=== PATIENT | male | born 1945 | race Caucasian/White ===

== ENCOUNTER 2022-11-08 07:40 | Inpatient (IN) | payer MEDICARE, OTHER, SELFPAY ==
[2022-11-08] VITALS (12 sets, daily range): BP systolic 115–175; BP diastolic 60–95; PULSE 76–109; RESP 16–24; TEMP 36.4–36.7; O2SAT 90–95; BMI 23.7
--- NOTE | ~2022-11-08 | XR_ITS ---
EXAMINATION: XR CHEST CLINICAL INFORMATION: Shortness of breath COMPARISON: None available. TECHNIQUE: Frontal and lateral sitting views of the chest FINDINGS: Linear opacities are evident in the periphery of the right midlung zone and at the left lung base indicative of atelectasis. In addition, there is a prominent vascular structure extending from the right hilum towards the region of atelectasis in the right midlung zone. There is a 21 x 14 mm nodular opacity in the right suprahilar region. No pleural effusions are evident. The cardiac silhouette is not enlarged. The aorta is uncoiled. Changes of prior vertebroplasty are noted in the mid dorsal spine. XR/XR chest 2V IMPRESSION: 1. Prominent tubular opacity extending from the right hilum towards the periphery of the right mid lung zones with peripheral atelectasis. This would better assessed by pulmonary CT angiography. 2. Nodular opacity in the right suprahilar region extending towards the right middle lobe, also better assessed by contrast-enhanced CT. 3. Findings discussed with DRE Prescott on 11/08/2022 at 8:35 AM
--- NOTE | ~2022-11-08 | CT_ITS ---
EXAMINATION: CT ANGIOGRAM OF THE CHEST WITH AND WITHOUT CONTRAST (CT PULMONARY ANGIOGRAM FOR PE) CLINICAL INFORMATION: Reason for Exam SOB, XR concerning for PE. Abnormal chest x-ray. COMPARISON: Chest x-ray of 11/08/2022 TECHNIQUE: Prior to contrast administration, noncontrast localization images were obtained. Subsequently, multidetector volumetric imaging was performed from the thoracic inlet to below the diaphragms following the administration of 80 mL Omnipaque 350 intravenous contrast. No contrast reaction reported Sagittal, coronal, and MIP oblique sagittal reformatted images were obtained on the CT workstation, uploaded to PACS, and reviewed. This CT examination was performed using dose optimization techniques as appropriate, variously including the following: *Automated exposure control *Adjustment of mA and/or kV according to patient size (this includes techniques or standardized protocols for targeted exams where dose is matched to indication/reason for exam; i.e. extremities or head) *Use of iterative reconstruction technique Total exam dose-length product 284 mGy-cm FINDINGS: QUALITY OF STUDY/CONTRAST BOLUS: Excellent PULMONARY ARTERIES: There is no evidence of central pulmonary embolus, aortic dissection or pneumothorax. The great vessels image normally. No aneurysm is detected. THORACIC AORTA: No aneurysm. LUNG: Severe emphysema is present, greater in the mid and upper lung zones. There are areas of mosaic attenuation with some air trapping. In the right lower lobe, there is ill-defined soft tissue along the course of the medial right lower lobe bronchus, measuring at least 3.1 x 1.1 cm. An endobronchial branching filling defect is evident within the right lower lobe bronchus at this level. There is some atelectasis of the subtended right lower lobe, and peribronchial thickening is evident about the right lower lobe bronchus. Irregular subpleural opacity is evident at the left base measuring 31 x 9 mm. Mild left lower lobe bronchiectasis is present. Patchy opacity in the right midlung zone with areas of groundglass may reflect air trapping, subsegmental atelectasis or perhaps pneumonitis. PLEURA: No pleural effusion or pneumothorax. MEDIASTINUM: Normal heart size. No pericardial effusion. No hilar or mediastinal lymphadenopathy. No evidence of septal bowing or right heart strain. CORONARY ARTERY CALCIFICATION: Mild left main and anterior descending coronary arteries CHEST WALL/AXILLA: No axillary or internal mammary lymphadenopathy. OSSEOUS STRUCTURES: Vertebroplasty is noted at T8. Generalized demineralization is present. There are no suspicious bone lesions. UPPER ABDOMEN: There are numerous low-density lesions in the liver, all of which measure less than 10 Hounsfield units, or are too small to characterize No reflux of contrast into the hepatic veins to suggest elevated right heart pressures. Multiple calculi are evident within the gallbladder. An exophytic 29 mm cyst is present in the upper pole the left kidney. There are no adrenal masses. CT/CT angio chest PE protocol IMPRESSION: 1. No evidence of central pulmonary embolus, aortic aneurysm or dissection or pneumothorax. 2. Severe emphysema with mosaic attenuation and areas of air trapping, greater in the mid and upper lung zones. 3. Endobronchial filling defect in the right lower lobe medial basal segment, with surrounding peribronchial thickening. This may reflect impacted mucus, possibly or neoplasm. 4. Patchy groundglass opacities in the right midlung zone, either on the basis of air trapping with mosaic attenuation; atelectasis; or pneumonitis. 5. Left lung base subpleural 31 x 9 mm opacity, with differential considerations including atelectasis, pneumonia or neoplasm. Follow-up is recommended to confirm clearing. 6. Cholelithiasis. The findings were discussed with Emma Umana in the [facility] emergency department on 11/08/2022 at 10:30 AM
--- NOTE | ~2022-11-08 | CT_ITS ---
EXAMINATION: CT ABDOMEN AND PELVIS WITHOUT CONTRAST CLINICAL INFORMATION: Central abdominal pain COMPARISON: None available. TECHNIQUE: Multidetector volumetric imaging was performed from the superior aspect of the liver through the pubic symphysis. Sagittal and coronal reformatted images were obtained on the technologist's workstation. This CT examination was performed using dose optimization techniques as appropriate, variously including the following: *Automated exposure control *Adjustment of mA and/or kV according to patient size (this includes techniques or standardized protocols for targeted exams where dose is matched to indication/reason for exam; i.e. extremities or head) *Use of iterative reconstruction technique DLP: 475 mGy-cm FINDINGS: LUNG BASES: Limited lower thoracic images show severe emphysema. Left base atelectasis or consolidation and cylindrical bronchiectasis are present. LIVER, GALLBLADDER, AND BILIARY TREE: The liver is normal in size, shape, and attenuation. Numerous hepatic cysts are present. Other small hypodense lesions are likely cysts though too small to characterize. There is no biliary ductal dilatation. Multiple calculi are evident within the gallbladder. No pericholecystic edema or infiltration is evident. PANCREAS: Unremarkable. SPLEEN: Unremarkable. ADRENAL GLANDS: Unremarkable. KIDNEYS AND URETERS: There is an exophytic 32 mm cyst extending from the upper pole the left kidney. A 32 mm left renal lower pole cyst is also evident. There is a 12 mm cyst in the right renal midpole. No renal calculi or obstructive uropathy is detected. Both ureters are well opacified by IV contrast from the recent CT thoracic angiogram. No filling defects are evident within the ureters. No hydronephrosis, hydroureter, or calculi seen. No perinephric stranding. BLADDER: Unremarkable. GASTROINTESTINAL TRACT: The small and large bowel are unremarkable. The appendix is unremarkable. ABDOMINAL WALL: There are small fat-containing bilateral inguinal hernias. LYMPH NODES: Normal. VASCULAR: There is an aneurysm of the infrarenal aorta measuring 5.4 cm long and 4.2 cm in maximum diameter. The aneurysm arises 3.2 cm above an accessory right renal lower pole artery and 6.3 cm below the main renal arteries. The aneurysm extends to the origin of the right proximal common iliac artery. 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 PELVIC VISCERA: Unremarkable. OSSEOUS STRUCTURES: Degenerative changes in the mid and lower lumbar spine. Probable intraosseous hemangioma at L1. No suspicious bone lesions. CT/CT abdomen pelvis wo IV con IMPRESSION: 1. Infrarenal abdominal aortic aneurysm measuring 4.2 cm in maximum diameter. Vascular consultation is recommended, as is follow-up CT in 12 months. 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 2. No acute findings in the abdomen or pelvis. 3. Cholelithiasis. 4. Hepatic and bilateral renal cysts, for which no specific follow-up is recommended.. Fleischner guidelines were followed.
--- NOTE | ~2022-11-08 | XR_ITS ---
EXAMINATION: XR CHEST CLINICAL INFORMATION: Chest congestion. COMPARISON: 11/08/2022 chest radiographs and chest CTA. TECHNIQUE: Frontal view of the chest was obtained. FINDINGS: Scattered curvilinear markings are seen bilaterally without significant change. The heart and mediastinal structures are unremarkable. XR/XR chest 1V IMPRESSION: No acute cardiopulmonary process. Chronic appearing scarring/atelectasis with similar distribution and severity.
--- NOTE | ~2022-11-08 | CT_ITS ---
EXAMINATION: CT HEAD WITHOUT CONTRAST CLINICAL INFORMATION: Severe sudden onset headache. COMPARISON: None. TECHNIQUE: Contiguous axial imaging was performed from the skull base to vertex without intravenous administration of contrast. This CT examination was performed using dose optimization techniques as appropriate, variously including the following: *Automated exposure control *Adjustment of mA and/or kV according to patient size (this includes techniques or standardized protocols for targeted exams where dose is matched to indication/reason for exam; i.e. extremities or head) *Use of iterative reconstruction technique DLP: 97 mGy-cm. FINDINGS: There is no intracranial hemorrhage, extra-axial collection, mass effect, or territorial infarction. There is a chronic lacunar infarct within the left basal ganglia. There is mild degree of diffuse brain parenchymal volume loss with prominence of the ventricles and sulci. Mild hypoattenuation is seen within the white matter, most likely representing chronic microangiopathic changes. The extracranial structures are within normal limits. CT/CT head/brain wo IV con IMPRESSION: No acute intracranial abnormality. Chronic lacunar infarct in the left basal ganglia. Mild chronic microangiopathic changes.
--- NOTE | 2022-11-08 07:57 | ECG_ITS ---
Test Reason : SOB Blood Pressure : / mmHG Vent. Rate : 076 BPM Atrial Rate : 076 BPM P-R Int : 182 ms QRS Dur : 088 ms QT Int : 426 ms P-R-T Axes : 072 009 041 degrees QTc Int : 479 ms Sinus rhythm with occasional Premature ventricular complexes Otherwise normal ECG No previous ECGs available Referred By: Emma Umana Electronically Signed By:MARIO ENRIQUEZ
--- NOTE | 2022-11-08 08:39 | ED_ITS ---
HPI - General Adult General Chief complaint: Upper Respiratory Symptoms Stated complaint: SOB,HX COPD PER EMS Time Seen by Provider: 11/08/22 08:38 Source: patient and EMS Mode of arrival: EMS Limitations: no limitations History of Present Illness HPI narrative: Patient is a 77 year old assigned male at with a history of COPD on 2LPM of oxygen chronically, presenting to the emergency department today with wor sening shortness of breath and a headache. Patient states that over the last day he has had worsening shortness of breath and a headache. Patient states that he has been having to turn his oxygen up significantly when walking. Patient denies any dizziness, lightheadedness, abdominal pain, nausea, vomiting, fever, chills, blurry vision, double vision, loss of vision, chest pain, back pain, night sw eats, pain with urination, increased urinary frequency, increased urinary urgency, blood in his urine or stool, syncope or a near syncopal episode, recent trauma or falls, bowel incontinence, bladder incontinence, bowel retention, bladder retention, or any other complaints at this time. Onset (ago): day(s) (1) Severity: moderate Severity scale (1-10): 5 Relieving factors: none Exacerbating factors: none Associated symptoms: shortness of breath Treatments prior to arrival: none Related Data Home Medications Medication Instructions Recorded Confirmed albuterol sulfate 90 mcg/actuation 2 puff inhalation Q6H PRN 11/08/22 11/08/22 aerosol inhaler (Ventolin HFA) Shortness Of Breath Or Wheezing aspirin 81 mg tablet,delayed 81 mg PO DAILY 11/08/22 11/08/22 release azithromycin 500 mg tablet 500 mg PO MOWEFR@0900 11/08/22 11/08/22 clopidogrel 75 mg tablet 75 mg PO DAILY 11/08/22 11/08/22 fluticasone fur. 100 mcg-umeclid 1 ea inhalation DAILY 11/08/22 11/08/22 62.5 mcg-vilant 25 mcg inhalat.powder (Trelegy Ellipta) Allergies Allergy/AdvReac Type Severity Reaction Status Date / Time No Known Allergies Allergy Verified 11/08/22 08:02 Review of Systems Constitutional: Constitutional: Reports no additional constitutional complaints, Denies chills, Denies fever(s) and Denies night sweats Eyes: Eyes: Reports no additional eye complaints, Denies blurry vision, Denies change in vision, Denies diplopia, Denies eye discharge, Denies loss of vision and Denies eye pain ENT: Denies dizziness Cardiovascular: Cardiovascular: Reports no additional cardiovascular compl aints, Denies chest pain, Denies lightheadedness, Denies Loss of Consciousness and Reports dyspnea Respiratory: Respiratory: Reports no additional respiratory complaints and Reports dyspnea Gastrointestinal: Gastrointestinal: Reports no additional gastrointestinal complaints, Denies abdominal pain, Denies melena, Denies hematochezia, Denies change in bowel habits and Denies change in stool character Genitourinary: Genitourinary: Reports no additional male genitourinary complaints, Denies hematuria, Denies oliguria, Denies difficulty urinating, Denies dysuria, Denies urinary frequency, Denies urinary hesitancy, Denies urinary incontinence and Denies urinary urgency Musculoskeletal: Musculoskeletal: Reports no additional musculoskeletal complaints, Denies numbness and Denies tingling Neurologic: Denies dizziness, Denies loss of vision, Denies numbness and Denies tingling Psychiatric: Psychiatric: Reports no additional psychiatric complaints Endocrine: Endocrine: Reports no additional endocrine complaints Hematologic/Lymphatic: Hematologic/Lymphatic: Reports no additional hemato logic/lymphatic complaints Allergic/Immunologic: Allergic/Immunologic: Reports no additional allergic/immunologic complaints PMFSH Past Medical History Attestation statement: The following information was validated with the patient. Source: old records reviewed and nursing notes reviewed Social History Social History Advance Directives: No Advance Directives Information Provided: No Physical Exam ED Vital Signs: Vital Signs - 24 hr 11/08/22 07:51 11/08/22 10:17 11/08/22 11:02 Pulse Rate 76 81 82 Respiratory Rate 24 H 18 21 H Blood Pressure 174/89 H 141/71 H Pulse Oximetry 94 95 Oxygen Delivery Method Room Air Nasal Cannula Nasal Cannula Oxygen Flow Rate 3 2.5 11/08/22 12:00 11/08/22 12:40 Pulse Rate 84 Respiratory Rate 24 H Blood Pressure 134/71 Pulse Oximetry 94 95 Oxygen Delivery Method Nasal Cannula Nasal Cannula Oxygen Flow Rate 2 BMI result Body Mass Index 23.7 Const General: cooperative, no acute distress, alert and awake Nutritional Appearance: well nourished Orientation/consciousness: patient oriented x3 Limitations: no limitations HENMT Head: Yes normal to inspection and Yes atraumatic Ears: hearing grossly normal bilaterally and external ears normal General nose exam: Normal external nose present, no nasal discharge noted and no epistaxis Face and sinus: Yes normal facial exam, No abrasion and No laceration Mouth: Normal oral and palatal mucosa present, no drooling and no muffled voice Eyes General: appearance normal, both eyes and all related structures Periorbital: periorbital findings normal Eyelids: Yes eyelids normal Conjunctivae: conjunctivae normal Pupils: Equal, round and reactive pupils present EOM: EOMs intact bilaterally Neck Neck: Yes normal visual inspection, Yes full ROM and Yes no lymphadenopathy Chest Chest palpation & inspection: normal inspection of the chest Resp Effort & Inspection: labored and tachypneic Auscultation: diminished lung sounds diffuse Cardio Rate: regular rate Rhythm: regular rhythm GI Inspection: Yes normal to inspection Palpation (GI): Soft to palpation, not firm, nontender and no guarding Neuro General: patient oriented x3 and moves all extremities Cranial nerves: Yes Equal, round and reactive pupils present Cognition (Neuro): normal cognition Motor exam (neuro): 5/5 motor strength present throughout Sensory Exam: Normal double simultaneous stimulation for sensation Coordination: [id number] test normal Extrem Other: 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 General: Yes full ROM and Yes capillary refill normal Psych Appearance: grossly normal Mental Status: mental status grossly normal Affect: normal affect Attitude: cooperative Thought process: Normal thought process present Thought content: Normal thought content present Insight: Good insight present (Psych) Medications Administered Generic Name Dose Route Start Last Admin Trade Name Freq PRN Reason Stop Dose Admin Sodium Chloride 2,187 mls @ 2,187 mls/hr 11/08/22 12:18 11/08/22 12:24 Ns 30 ml/kg infuse over 1 hr (2187 ml) 11/08/22 13:17 2,187 mls/hr IV Administration .Q1H STA Discontinued Medications Generic Name Dose Route Start Last Admin Trade Name Freq PRN Reason Stop Dose Admin Acetaminophen 650 mg 11/08/22 08:42 11/08/22 09:19 Acetaminophen 325 Mg Tablet PO 11/08/22 08:43 650 mg ONCE ONE Administration Albuterol/Ipratropium 3 ml 11/08/22 10:55 11/08/22 10:59 Albuterol/Iprat 2.5/0.5mg 3 Ml Ampul.Neb INHALE 11/08/22 10:56 3 ml ONCE ONE Administration Ceftriaxone Sodium 1 gm/ 50 mls @ 100 mls/hr 11/08/22 11:41 11/08/22 12:49 Sodium Chloride IV 11/08/22 12:10 Infused ONCE ONE Infusion Iohexol 65 ml 11/08/22 09:47 11/08/22 09:47 Iohexol 350 Mg/Ml 100 Ml Infus..Btl IV 11/08/22 09:48 65 ml ONCE ONE Administration Methylprednisolone Sodium Succinate 60 mg 11/08/22 10:36 11/08/22 11:22 Methylprednisolone Sod Succ 125 Mg/2 Ml Vial IM 11/08/22 10:37 60 mg ONCE ONE Administration Medical Decision Making Medical Decision Making [facility] Narrative: Patient is a 77 year old assigned male at with a history of COPD on 2 liters of oxygen at baseline presenting to the emergency department today with a headache and significant increase in difficulty breathing. Patient's physical e xam was as noted in the physical exam portion of this note. Patient's blood work showed an elevated lactic acid of 2.7 but the rest of the patient's lab results were grossly normal. Patient's EKG was unremarkable. Patient's chest x-ray showed a prominent tubular opacity extending from the right hilum towards the periphery of the right mid lung zones with peripheral atelectasis and a nodular opacity in the right suprahilar region extending towards the right middle lobe. Radiologist called to inform me of this reading and recommended a CT PE study. CT PE study showed endobronchial filling defect in the right lower lobe medial basal segment with surrounding peribronchial thickening and patchy ground glass opacities in the right midlung zone. Radiologist speculates this could be PNA vs. Neoplasm. Patient is not considered spesis at this time (@1140). Patient's head CT is negative. I spoke to the hospitalist who agreed to admission. I explained my physical exam findings as well as all test results to the patient. I answered all questions asked by the patient. Patient verbalized agreement and understanding with this treatment plan and admission. Differential Diagnosis Differential Diagnoses: The differential diagnosis associated with the presentation includes COPD exacerbation Worsening emphysema PNA Admission/Observation Consideration of admission/observation: Escalation of care including admission/observation considered Patient admitted. Consult Healthcare Provider Management of the patient was discussed with: Hospitalist (agreed to admission) and Front Desk Host (spoke to the radiologist as noted in the MDM portion of this note.) Lab Data [facility] Lab Attestation statement: I reviewed the patient's lab results. My interpretation of these results are in the MDM portion of this note. 11/08/22 08:42 11/08/22 08:42 Labs: Lab Results 11/08/22 11/08/22 11/08/22 Range/Units 08:42 08:42 08:42 WBC 9.4 (4.8-10.8) X10*3/uL RBC 4.49 L (4.60-5.80) X10*6/uL Hgb 13.3 L (14.0-18.0) g/dl Hct 40.7 L (42.0-52.0) % MCV 90.6 (80.0-98.0) fL MCH 29.6 (27.0-33.0) pg MCHC 32.7 (31.0-36.0) g/dl RDW 13.7 (11.0-16.0) % Plt Count 269 (160-400) X10*3/uL MPV 10.0 (9.4-12.4) fL Immature Gran % (Auto) 0.2 (0.0-0.4) % Neut % (Auto) 75.5 H (45-73) % Lymph % (Auto) 13.4 L (20-40) % Eagle % (Auto) 9.3 (2-11) % Eos % (Auto) 0.9 (0-4) % Baso % (Auto) 0.7 (0-2) % Lymph # (Auto) 1.3 (1.2-4.9) X10*3/uL Eagle # (Auto) 0.9 (0.1-1.2) X10*3/uL Eos # (Auto) 0.1 (0.0-0.4) X10*3/uL Baso # (Auto) 0.1 (0.0-0.2) X10*3/uL Abs Immat Gran (auto) 0.02 (0.00-0.03) X10*3/uL Absolute Neuts (auto) 7.1 (2.0-8.3) x10*3/uL Absolute Nucleated RBC 0.000 (0.0-0.012) X10*3/uL Nucleated RBC % (auto) 0.0 (0.0-0.2) /100WBC PT (11.1-13.3) SEC INR (0.9-1.1) APTT (26.0-36.4) SEC VBG pH (7.32-7.43) VBG pCO2 mmHg VBG pO2 mmHg VBG HCO3 (22-26) mmol/L VBG O2 Saturation % VBG Base Excess mmol/L Sodium 140 (135-145) mmol/L Potassium 4.7 (3.3-5.1) mmol/L Chloride 108 (96-108) mmol/L Carbon Dioxide 24 (22-29) mmol/L Anion Gap 13 (12-20) BUN 28 H (9-16) mg/dL Creatinine 1.08 (0.5-1.4) mg/dL Estim Creat Clear Calc 57.2 Estimated GFR > 60 Random Glucose 148 H (60-115) mg/dL Lactic Acid (0.5-2.0) mmol/L Calcium 9.4 (8.4-10.2) mg/dL Magnesium 2.0 (1.6-2.6) mg/dL Total Bilirubin 0.3 (0.0-1.0) mg/dL AST 12 (5-37) U/L ALT 10 (0-40) U/L Alkaline Phosphatase 71 (39-117) U/L Troponin I High Sens < 2.7 (<3.5-35.0) ng/L Total Protein 7.6 (6.5-8.0) g/dL Albumin 4.0 (3.5-5.0) g/dL COVID-19 (ANGEL) (Negative) COVID-19 Clin Com 11/08/22 11/08/22 11/08/22 Range/Units 08:42 08:42 09:17 WBC (4.8-10.8) X10*3/uL RBC (4.60-5.80) X10*6/uL Hgb (14.0-18.0) g/dl Hct (42.0-52.0) % MCV (80.0-98.0) fL MCH (27.0-33.0) pg MCHC (31.0-36.0) g/dl RDW (11.0-16.0) % Plt Count (160-400) X10*3/uL MPV (9.4-12.4) fL Immature Gran % (Auto) (0.0-0.4) % Neut % (Auto) (45-73) % Lymph % (Auto) (20-40) % Eagle % (Auto) (2-11) % Eos % (Auto) (0-4) % Baso % (Auto) (0-2) % Lymph # (Auto) (1.2-4.9) X10*3/uL Eagle # (Auto) (0.1-1.2) X10*3/uL Eos # (Auto) (0.0-0.4) X10*3/uL Baso # (Auto) (0.0-0.2) X10*3/uL Abs Immat Gran (auto) (0.00-0.03) X10*3/uL Absolute Neuts (auto) (2.0-8.3) x10*3/uL Absolute Nucleated RBC (0.0-0.012) X10*3/uL Nucleated RBC % (auto) (0.0-0.2) /100WBC PT 11.3 (11.1-13.3) SEC INR 0.9 (0.9-1.1) APTT 26.6 (26.0-36.4) SEC VBG pH 7.43 (7.32-7.43) VBG pCO2 35 mmHg VBG pO2 41 mmHg VBG HCO3 24 (22-26) mmol/L VBG O2 Saturation 64.0 % VBG Base Excess 0.6 mmol/L Sodium (135-145) mmol/L Potassium (3.3-5.1) mmol/L Chloride (96-108) mmol/L Carbon Dioxide (22-29) mmol/L Anion Gap (12-20) BUN (9-16) mg/dL Creatinine (0.5-1.4) mg/dL Estim Creat Clear Calc Estimated GFR Random Glucose (60-115) mg/dL Lactic Acid (0.5-2.0) mmol/L Calcium (8.4-10.2) mg/dL Magnesium (1.6-2.6) mg/dL Total Bilirubin (0.0-1.0) mg/dL AST (5-37) U/L ALT (0-40) U/L Alkaline Phosphatase (39-117) U/L Troponin I High Sens (<3.5-35.0) ng/L Total Protein (6.5-8.0) g/dL Albumin (3.5-5.0) g/dL COVID-19 (ANGEL) Negative (Negative) COVID-19 Clin Com See Note 11/08/22 Range/Units 12:00 WBC (4.8-10.8) X10*3/uL RBC (4.60-5.80) X10*6/uL Hgb (14.0-18.0) g/dl Hct (42.0-52.0) % MCV (80.0-98.0) fL MCH (27.0-33.0) pg MCHC (31.0-36.0) g/dl RDW (11.0-16.0) % Plt Count (160-400) X10*3/uL MPV (9.4-12.4) fL Immature Gran % (Auto) (0.0-0.4) % Neut % (Auto) (45-73) % Lymph % (Auto) (20-40) % Eagle % (Auto) (2-11) % Eos % (Auto) (0-4) % Baso % (Auto) (0-2) % Lymph # (Auto) (1.2-4.9) X10*3/uL Eagle # (Auto) (0.1-1.2) X10*3/uL Eos # (Auto) (0.0-0.4) X10*3/uL Baso # (Auto) (0.0-0.2) X10*3/uL Abs Immat Gran (auto) (0.00-0.03) X10*3/uL Absolute Neuts (auto) (2.0-8.3) x10*3/uL Absolute Nucleated RBC (0.0-0.012) X10*3/uL Nucleated RBC % (auto) (0.0-0.2) /100WBC PT (11.1-13.3) SEC INR (0.9-1.1) APTT (26.0-36.4) SEC VBG pH (7.32-7.43) VBG pCO2 mmHg VBG pO2 mmHg VBG HCO3 (22-26) mmol/L VBG O2 Saturation % VBG Base Excess mmol/L Sodium (135-145) mmol/L Potassium (3.3-5.1) mmol/L Chloride (96-108) mmol/L Carbon Dioxide (22-29) mmol/L Anion Gap (12-20) BUN (9-16) mg/dL Creatinine (0.5-1.4) mg/dL Estim Creat Clear Calc Estimated GFR Random Glucose (60-115) mg/dL Lactic Acid 2.7 H* (0.5-2.0) mmol/L Calcium (8.4-10.2) mg/dL Magnesium (1.6-2.6) mg/dL Total Bilirubin (0.0-1.0) mg/dL AST (5-37) U/L ALT (0-40) U/L Alkaline Phosphatase (39-117) U/L Troponin I High Sens (<3.5-35.0) ng/L Total Protein (6.5-8.0) g/dL Albumin (3.5-5.0) g/dL COVID-19 (ANGEL) (Negative) COVID-19 Clin Com Independent Interpretation I performed an independent interpretation of an: EKG, Plain X-Ray and CT Scan Interpretation: My interpretation is in agreement with the radiologist's impression of these imaging studies. EXAMINATION: XR CHEST CLINICAL INFORMATION: Shortness of breath COMPARISON: None available. TECHNIQUE: Frontal and lateral sitting views of the chest FINDINGS: Linear opacities are evident in the periphery of the right midlung zone and at the left lung base indicative of atelectasis. In addition, there is a prominent vascular structure extending from the right hilum towards the region of atelectasis in the right midlung zone. There is a 21 x 14 mm nodular opacity in the right suprahilar region. No pleural effusions are evident. The cardiac silhouette is not enlarged. The aorta is uncoiled. Changes of prior vertebroplasty are noted in the mid dorsal spine. XR/XR chest 2V IMPRESSION: ? 1. Prominent tubular opacity extending from the right hilum towards the periphery of the right mid lung zones with peripheral atelectasis. This would better assessed by pulmonary CT angiography. 2. Nodular opacity in the right suprahilar region extending towards the right middle lobe, also better assessed by contrast-enhanced CT. 3. Findings discussed with DRE Prescott on 11/08/2022 at 8:35 AM Dictated By: Bautista Flannery MD Signed By: Electronically signed by Bautista Flannery MD 11/08/22 0838 EXAMINATION: CT HEAD WITHOUT CONTRAST CLINICAL INFORMATION: Severe sudden onset headache. COMPARISON: None. TECHNIQUE: Contiguous axial imaging was performed from the skull base to vertex without intravenous administration of contrast. This CT examination was performed using dose optimization techniques as appropriate, variously including the following: *Automated exposure control *Adjustment of mA and/or kV according to patient size (this includes techniques or standardized protocols for targeted exams where dose is matched to indication/reason for exam; i.e. extremities or head) *Use of iterative reconstruction technique DLP: 97 mGy-cm. FINDINGS: There is no intracranial hemorrhage, extra-axial collection, mass effect, or territorial infarction. There is a chronic lacunar infarct within the left basal ganglia. There is mild degree of diffuse brain parenchymal volume loss with prominence of the ventricles and sulci. Mild hypoattenuation is seen within the white matter, most likely representing chronic microangiopathic changes. The extracranial structures are within normal limits. CT/CT head/brain wo IV con IMPRESSION: No acute intracranial abnormality. Chronic lacunar infarct in the left basal ganglia. Mild chronic microangiopathic changes. Dictated By: CHERYL BEACH MD Signed By: Electronically signed by CHERYL BEACH MD 11/08/22 1007 ---- EXAMINATION: CT ANGIOGRAM OF THE CHEST WITH AND WITHOUT CONTRAST (CT PULMONARY ANGIOGRAM FOR PE) CLINICAL INFORMATION: Reason for Exam SOB, XR concerning for PE. Abnormal chest x-ray. COMPARISON: Chest x-ray of 11/08/2022? ? TECHNIQUE: Prior to contrast administration, noncontrast localization images were obtained. ? Subsequently, multidetector volumetric imaging was performed from the thoracic inlet to below the diaphragms following the administration of 80 mL Omnipaque 350 intravenous contrast. No contrast reaction reported Sagittal, coronal, and MIP oblique sagittal reformatted images were obtained on the CT workstation, uploaded to PACS, and reviewed. This CT examination was performed using dose optimization techniques as appropriate, variously including the following: *Automated exposure control *Adjustment of mA and/or kV according to patient size (this includes techniques or standardized protocols for targeted exams where dose is matched to indication/reason for exam; i.e. extremities or head) *Use of iterative reconstruction technique Total exam dose-length product 284 mGy-cm FINDINGS: QUALITY OF STUDY/CONTRAST BOLUS: Excellent PULMONARY ARTERIES: There is no evidence of central pulmonary embolus, aortic dissection or pneumothorax. The great vessels image normally. No aneurysm is detected. THORACIC AORTA: No aneurysm. LUNG: Severe emphysema is present, greater in the mid and upper lung zones. There are areas of mosaic attenuation with some air trapping. In the right lower lobe, there is ill-defined soft tissue along the course of the medial right lower lobe bronchus, measuring at least 3.1 x 1.1 cm. An endobronchial branching filling defect is evident within the right lower lobe bronchus at this level. There is some atelectasis of the subtended right lower lobe, and peribronchial thickening is evident about the right lower lobe bronchus. Irregular subpleural opacity is evident at the left base measuring 31 x 9 mm. Mild left lower lobe bronchiectasis is present. Patchy opacity in the right midlung zone with areas of groundglass may reflect air trapping, subsegmental atelectasis or perhaps pneumonitis. PLEURA: No pleural effusion or pneumothorax. MEDIASTINUM: Normal heart size.? No pericardial effusion.? No hilar or mediastinal lymphadenopathy.? No evidence of septal bowing or right heart strain. CORONARY ARTERY CALCIFICATION: Mild left main and anterior descending coronary arteries CHEST WALL/AXILLA: No axillary or internal mammary lymphadenopathy. OSSEOUS STRUCTURES: Vertebroplasty is noted at T8. Generalized demineralization is present. There are no suspicious bone lesions.? UPPER ABDOMEN: There are numerous low-density lesions in the liver, all of which measure less than 10 Hounsfield units, or are too small to characterize? No reflux of contrast into the hepatic veins to suggest elevated right heart pressures. Multiple calculi are evident within the gallbladder. An exophytic 29 mm cyst is present in the upper pole the left kidney. There are no adrenal masses. CT/CT angio chest PE protocol IMPRESSION: ? 1. No evidence of central pulmonary embolus, aortic aneurysm or dissection or pneumothorax. ? 2. Severe emphysema with mosaic attenuation and areas of air trapping, greater in the mid and upper lung zones. ? 3. Endobronchial filling defect in the right lower lobe medial basal segment, with surrounding peribronchial thickening. This may reflect impacted mucus, possibly or neoplasm. ? 4. Patchy groundglass opacities in the right midlung zone, either on the basis of air trapping with mosaic attenuation; atelectasis; or pneumonitis. ? 5. Left lung base subpleural 31 x 9 mm opacity, with differential considerations including atelectasis, pneumonia or neoplasm. Follow-up is recommended to confirm clearing. ? 6. Cholelithiasis. ? The findings were discussed with Emma Umana in the [facility] emergency department on 11/08/2022 at 10:30 AM Dictated By: Bautista Flannery MD Signed By: Electronically signed by Bautista Flannery MD 11/08/22 1039 Vent. Rate: 076 BPM ? ? Atrial Rate: 076 BPM P-R Int: 182 ms? QRS Dur: 088 ms QT Int: 426 ms ? ? ? P-R-T Axes: 072 009 041 degrees QTc Int: 479 ms ? Sinus rhythm with occasional Premature ventricular complexes Otherwise normal ECG No previous ECGs available DD/ 0830 Radiology Impression Discussion of test interpretation with radiology: I discussed test interpretation with the radiologist and I have reviewed the radiologist's reading. Independent Historian Clinical information obtained from an independent historian. History obtained from or confirmed by: EMS (EMS provided additional history and confirmed the history provided by the patient.) Chronic Conditions Patient?s care impacted by: Other (emphysema) Critical Care Time Critical Care Time Critical Care Time: Yes Total Critical Care Time: 45 Attestation: I spent 45 minutes of Critical Care Time with this patient. This does not include time spent on separately reported billable procedures. Discharge Plan Discharge Clinical Impression: Emphysema lung, Pneumonia Patient Disposition: Admitted As Inpatient Prescriptions: No Action clopidogrel 75 mg tablet 75 mg PO DAILY albuterol sulfate [Ventolin HFA] 90 mcg/actuation HFA aerosol inhaler 2 puff inhalation Q6H PRN (Reason: Shortness Of Breath Or Wheezing) azithromycin 500 mg tablet 500 mg PO MOWEFR@0900 Trelegy Ellipta 100-62.5-25 mcg blister with device 1 ea inhalation DAILY aspirin 81 mg Tablet,Delayed Release (Dr/Ec) 81 mg PO DAILY
[2022-11-08 08:47] LABS: MANUAL DIFF FLAG NO
[2022-11-08 08:48] LABS: Venous Blood Gas Refer to POC result
[2022-11-08 08:48] LABS: Basophils Absolute Auto 0.1 X10*3/uL (0.0-0.2); Basophils Percent Auto 0.7 % (0-2); Eosinophils Absolute Auto 0.1 X10*3/uL (0.0-0.4); Eosinophils Percent Auto 0.9 % (0-4); Hematocrit 40.7 % (42.0-52.0); Hemoglobin 13.3 g/dl (14.0-18.0); Imm Gran Abs Auto 0.02 X10*3/uL (0.00-0.03); Imm Gran Pct Auto 0.2 % (0.0-0.4); Lymphocytes Absolute Auto 1.3 X10*3/uL (1.2-4.9); Lymphocytes Percent Auto 13.4 % (20-40); Mean Corpuscular HGB Conc 32.7 g/dl (31.0-36.0); Mean Corpuscular Hemoglobin 29.6 pg (27.0-33.0); Mean Corpuscular Volume 90.6 fL (80.0-98.0); Monocytes Absolute Auto 0.9 X10*3/uL (0.1-1.2); Monocytes Percent Auto 9.3 % (2-11); Neutrophils Absolute Auto 7.1 x10*3/uL (2.0-8.3); Neutrophils Percent Auto 75.5 % (45-73); Platelet Count 269 X10*3/uL (160-400); Red Blood Count 4.49 X10*6/uL (4.60-5.80); Red Cell Distribution Width 13.7 % (11.0-16.0); White Blood Count 9.4 X10*3/uL (4.8-10.8)
[2022-11-08 08:51] LABS: VBG Base Excess 0.6 mmol/L; VBG HCO3 24 mmol/L (22-26); VBG pCO2 35 mmHg; VBG pH 7.43 (7.32-7.43); VBG pO2 41 mmHg
[2022-11-08 09:05] LABS: COVID-19 Test Negative (Negative); IDNOW Serial# 08D9AD1C
[2022-11-08 09:07] LABS: Alanine Aminotransferase 10 U/L (0-40); Alkaline Phosphatase 71 U/L (39-117); Anion Gap 13 (12-20); Aspartate Amino Transferase 12 U/L (5-37); Bilirubin Total 0.3 mg/dL (0.0-1.0); Blood Urea Nitrogen 28 mg/dL (9-16); Calcium 9.4 mg/dL (8.4-10.2); Carbon Dioxide 24 mmol/L (22-29); Chloride 108 mmol/L (96-108); Creatinine Clr Calc Pharmacy 57.2; Estimated Glomerular Filt Rate > 60; Glucose Random 148 mg/dL (60-115); Potassium 4.7 mmol/L (3.3-5.1); Sodium 140 mmol/L (135-145); Total Protein 7.6 g/dL (6.5-8.0)
[2022-11-08 09:19] LABS: Troponin-I High Sensitivity < 2.7 ng/L (<3.5-35.0)
[2022-11-08] MEDS: Acetaminophen 325 MG TABLET 650 MG PO (09:19)
[2022-11-08 09:32] LABS: INTERNATIONAL NORM RATIO 0.9 (0.9-1.1); Prothrombin Time 11.3 SEC (11.1-13.3)
[2022-11-08 09:34] LABS: Partial Thromboplastin Time 26.6 SEC (26.0-36.4)
[2022-11-08] MEDS: iohexoL 350 MG/ML 100 ML INFUS..BTL 65 ML IV (09:47)
[2022-11-08] MEDS: Albuterol/Iprat 2.5/0.5MG 3 ML AMPUL.NEB INHALE ×3 (10:59→19:49)
[2022-11-08] MEDS: methylPREDNISolone Sod Succ 125 MG/2 ML VIAL 60 MG IM (11:22)
[2022-11-08] MEDS: cefTRIAXone sodium 1 GM in 0.9 % Sodium Chloride 50 ML IV (12:12)
[2022-11-08 12:19] LABS: Lactic Acid 2.7 mmol/L (0.5-2.0)
--- NOTE | 2022-11-08 12:38 | PC.NURSE ---
meds and fluids administered as ordered. pt's at bedside. vss. pending admission.
--- NOTE | 2022-11-08 12:42 | PHA.MEDREC ---
Pharmacy Consult ? Medication Reconciliation Pharmacy has completed the medication reconciliation. Spoke to patient and spouse to confirm meds.
--- NOTE | 2022-11-08 13:50 | PM.IMHP ---
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 Will consult vascular surgery. Pt is a 77-year-old male with a PMH significant for?COPD on 2L home O2 and PAD s/p stenting who presents to the ED with?fever, chills, and diaphoresis since this morning. Patient states that when he woke up this morning to use the bathroom, upon returning to bed he suddenly felt like he was sweating and lacked strength to move. Patient stand that he had a bad headache and pain in his stomach. Pain is central, crampy, and sharp in nature, says that this has been occurring intermittently for the past couple of weeks. Patient states he has chronic shortness of breath and increasing cough. Patient is on home supplemental oxygen, 2 L at rest and 4 L with activity/ambulation. 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 every M//. Patient also experienced some nausea and vomiting while in the ED earlier today. Patient has a 40 year pack history of smoking, though quit smoking 7 years ago. Denies any recent unintended weight loss. No chest pain/pressure, palpitations. Denies lower leg edema. No calf pain. In the ED pt was tachypneic up to 24, satting at 90% 2.5 L. Labs were significant for lactic acid of 2.7, otherwise unremarkable. Stable H&H. Electrolytes WNL. Renal and hepatic function WNL. Troponin negative. CXR showed prominent tubular opacity extending from right hilum towards the periphery of the right mid lung with peripheral atelectasis. Also found nodular opacity in the right suprahilar region extending further right middle lobe. CTA found no evidence of central pulmonary embolus, aortic aneurysm or dissection, or pneumothorax. Did find severe emphysema with mosaic attenuation and areas of air trapping. Also ndobronchial filling deficit in right lower lobe with surrounding peribronchial thickening that may reflect impacted mucus or possibly neoplasm; patchy ground-glass opacities in the right midlung zone suggestive air trapping with mosaic attenuation, atelectasis, or pneumonitis; left lung base subpleural 31 x 9 mm opacity suggestive of atelectasis, pneumonia, or neoplasm. CT of head found no acute intracranial abnormality but showed chronic lacunar infarct in the left basal ganglia and mild chronic microangiopathic changes. EKG demonstrated sinus rhythm with occasional PVCs and no evidence of ST elevations or depressions. Pt was treated with acetaminophen, steroids, DuoNebs, ceftriaxone, and IVF. Pt will be admitted to the hospital for acute hypoxic respiratory failure in the setting of COPD exacerbation likely secondary to pneumonia. Review of Systems Review of Systems: Headache, fever, chills Diaphoresis Fatigue Intermittent abdominal pain times 2-3 weeks Increasing cough Chronic shortness of breath Denies unintended weight loss No chest pain/pressure, palpitations Yes all other systems are reviewed and are negative PMFSH Social History Household Members: Spouse Housing: House Do you presently have visiting nurse or other home services: No Patient Tobacco Use Status: Former Tobacco user Use of substances other than those prescribed or required for medical reasons: No Currently Displaying Signs/Symptoms of Drug Intoxication Withdrawal: No Have you been hit, kicked, punched, or otherwise hurt by someone within the past year? If so, by whom?: No Do you feel safe in your current relationship?: Yes Is there a partner from a previous relationship who is making you feel unsafe now?: No Are you made to feel afraid or neglected: No [employer] Healthcare Practices: Orthodox Advance Directives: No Advance Directives Information Provided: No Do you have thoughts of harming others: None Do you have a plan to hurt others: No Plan Recently lost weight without trying: No Nutrition Risks: No Nutritional Risk Meds Allergies Allergy/AdvReac Type Severity Reaction Status Date / Time No Known Allergies Allergy Verified 11/08/22 08:02 Active Medications: Current Medications Pharmacy Consult (Consult Rx Perform Med Rec) 1 each MISCELLANE ONCE PRN PRN Reason: Consult order Home Medications Medication Instructions Recorded Confirmed Last Taken Type albuterol sulfate 90 mcg/actuation 2 puff inhalation Q6H PRN 11/08/22 11/08/22 Unknown History aerosol inhaler (Ventolin HFA) Shortness Of Breath Or Wheezing aspirin 81 mg tablet,delayed 81 mg PO DAILY 11/08/22 11/08/22 11/07/22 History release azithromycin 500 mg tablet 500 mg PO MOWEFR@0900 11/08/22 11/08/22 11/07/22 History clopidogrel 75 mg tablet 75 mg PO DAILY 11/08/22 11/08/22 11/07/22 History fluticasone fur. 100 mcg-umeclid 1 ea inhalation DAILY 11/08/22 11/08/22 11/07/22 History 62.5 mcg-vilant 25 mcg inhalat.powder (Trelegy Ellipta) Physical Exam Vital Signs and Narrative: Vital Signs: Last Vital Signs Pulse 84 11/08/22 12:00 Resp 24 H 11/08/22 12:00 BP 134/71 11/08/22 12:00 Pulse Ox 95 11/08/22 12:40 O2 Del Method Nasal Cannula 11/08/22 12:40 O2 Flow Rate 2 11/08/22 12:00 Oxygen Flow Rate 2 11/08/22 12:40 BMI result Body Mass Index 23.7 Constitutional: Alert, slightly unkempt, in no acute distress. Mental Status: Oriented to person, place and time. Eyes: Pupils are equal, round, and reactive to light. Ear, Nose, and Throat: Oropharynx clear, mucous membranes moist. Ears and nose without deformities. Trachea midline. Respiratory: Diffuse expiratory rhonchi. Diminished breath sounds throughout. Cardiovascular: S1, S2 regular. No murmurs, rubs, or gallops. Gastrointestinal: Abdomen soft, non-distended, with suprapubic and periumbilical tenderness. Normal bowel sounds. Neurologic: Cranial nerves II-XII are grossly intact bilaterally. No focal neurological deficits. Moves all extremities spontaneously. Skin: No rashes or lesions noted. Musculoskeletal: No cyanosis or clubbing. Extremities: No edema. Psychiatric: Normal mood and affect. Results Labs 11/08/22 08:42 11/08/22 08:42 Labs: Laboratory Results - last 24 hr 11/08/22 11/08/22 11/08/22 08:42 08:42 08:42 MCV 90.6 MCH 29.6 MCHC 32.7 RDW 13.7 Plt Count 269 MPV 10.0 Immature Gran % (Auto) 0.2 Neut % (Auto) 75.5 H Lymph % (Auto) 13.4 L Cloud % (Auto) 9.3 Eos % (Auto) 0.9 Baso % (Auto) 0.7 Lymph # (Auto) 1.3 Cloud # (Auto) 0.9 Eos # (Auto) 0.1 Baso # (Auto) 0.1 Abs Immat Gran (auto) 0.02 Absolute Neuts (auto) 7.1 Absolute Nucleated RBC 0.000 Nucleated RBC % (auto) 0.0 PT INR APTT VBG pH VBG pCO2 VBG pO2 VBG HCO3 VBG O2 Saturation VBG Base Excess Anion Gap 13 Estim Creat Clear Calc 57.2 Estimated GFR > 60 Random Glucose 148 H Lactic Acid Calcium 9.4 Magnesium 2.0 Total Bilirubin 0.3 AST 12 ALT 10 Alkaline Phosphatase 71 Total Protein 7.6 Albumin 4.0 COVID-19 (ANGEL) Negative COVID-19 Clin Com See Note 11/08/22 11/08/22 11/08/22 08:42 09:17 12:00 MCV MCH MCHC RDW Plt Count MPV Immature Gran % (Auto) Neut % (Auto) Lymph % (Auto) Cloud % (Auto) Eos % (Auto) Baso % (Auto) Lymph # (Auto) Cloud # (Auto) Eos # (Auto) Baso # (Auto) Abs Immat Gran (auto) Absolute Neuts (auto) Absolute Nucleated RBC Nucleated RBC % (auto) PT 11.3 INR 0.9 APTT 26.6 VBG pH 7.43 VBG pCO2 35 VBG pO2 41 VBG HCO3 24 VBG O2 Saturation 64.0 VBG Base Excess 0.6 Anion Gap Estim Creat Clear Calc Estimated GFR Random Glucose Lactic Acid 2.7 H* Calcium Magnesium Total Bilirubin AST ALT Alkaline Phosphatase Total Protein Albumin COVID-19 (ANGEL) COVID-19 Clin Com Imaging Radiologist's Impressions: Impressions Chest X-Ray 11/08/22 08:12 IMPRESSION: 1. Prominent tubular opacity extending from the right hilum towards the periphery of the right mid lung zones with peripheral atelectasis. This would better assessed by pulmonary CT angiography. 2. Nodular opacity in the right suprahilar region extending towards the right middle lobe, also better assessed by contrast-enhanced CT. 3. Findings discussed with DRE Prescott on 11/08/2022 at 8:[address] 11/08/22 09:56 IMPRESSION: No acute intracranial abnormality. Chronic lacunar infarct in the left basal ganglia. Mild chronic microangiopathic changes. Chest CTA 11/08/22 10:01 IMPRESSION: 1. No evidence of central pulmonary embolus, aortic aneurysm or dissection or pneumothorax. 2. Severe emphysema with mosaic attenuation and areas of air trapping, greater in the mid and upper lung zones. 3. Endobronchial filling defect in the right lower lobe medial basal segment, with surrounding peribronchial thickening. This may reflect impacted mucus, possibly or neoplasm. 4. Patchy groundglass opacities in the right midlung zone, either on the basis of air trapping with mosaic attenuation; atelectasis; or pneumonitis. 5. Left lung base subpleural 31 x 9 mm opacity, with differential considerations including atelectasis, pneumonia or neoplasm. Follow-up is recommended to confirm clearing. 6. Cholelithiasis. The findings were discussed with Emma Umana in the [facility] emergency department on 11/08/2022 at 10:30 AM Assessment and Plan (1) Pneumonia: Status: Acute (2) COPD exacerbation: Status: Acute Plan Pt is a 77-year-old male with a PMH significant for?COPD on 2L home O2 and PAD s/p stenting who presents to the ED with?fever, chills, and diaphoresis since this morning. Patient with chronic SOB and increased cough. CTA concerning for pneumonia versus neoplasm. Pt will be admitted to the hospital for acute hypoxic respiratory failure in the setting of COPD exacerbation likely secondary to pneumonia. Acute hypoxic respiratory failure in the setting of COPD exacerbation likely secondary to pneumonia Patient with increased supplemental O2 demand, currently satting at 90% on 2.5 L CTA with left lung base subpleural opacity, suggestive of pneumonia versus neoplasm versus atelectasis Will give IV antibiotics: Ceftriaxone, azithromycin, started 11/08/2022 DuoNejosefina, Solu-Medrol Patient received IVF in the ED Patient does not meet sepsis criteria: No WBC, afebrile, no tachycardia Titrate supplemental O2 > 92, wean as tolerated Monitor respiratory status Abdominal pain Patient with central intermittent abdominal pain x2-3 weeks, tender on exam Nausea, vomiting in the ED today Will get dry CT of abdomen/pelvis Abnormal CTA results CTA with endobronchial filling defect right lower lobe medial basal segment, suggestive of impacted mucus vs neoplasm Left lung base subpleural 31 x 9 mm opacity, atelectasis versus pneumonia versus neoplasm Patient should follow-up outpatient with PCP for additional imaging/workup PAD Continue aspirin, Plavix Lactic acidosis Likely secondary to hypoxia, not sepsis Pt received IVF in the ED Follow lactic acid Full Code Attending:?Dr. Laureano DVT Prophylaxis: Lovenox Pt will require a hospitalization of at least two nights for treatment of?acute hypoxic respiratory failure in the setting of COPD exacerbation likely secondary to pneumonia. Time Spent With Patient Time: Total time managing care of this patient today ____ minutes. Quality Stroke Does the patient have a stroke diagnosis?: No VTE Prior VTE?: No VTE Risk Level:: Medical - moderate - high VTE Device Contraindication: Treatment Not Indicated VTE Drug Contraindication: N/A - Med Ordered
[2022-11-08 14:05] LABS: Reflex Lactate? Lactic Acid Added
[2022-11-08 14:59] LABS: ~Lactic Acid-LAB USE ONLY 2.7 mmol/L (0.5-2.0)
[2022-11-08] MEDS: Clopidogrel Bisulfate 75 MG TABLET PO (15:38)
[2022-11-08] MEDS: Aspirin Enteric Coated 81 MG TABLET.DR PO (15:38)
[2022-11-08] MEDS: Enoxaparin Sodium 40 MG/0.4 ML SYRINGE SUBCUT (15:38)
[2022-11-08] MEDS: Azithromycin 500 MG in 0.9 % Sodium Chloride 250 ML 125 MG IV (15:38)
[2022-11-08 16:42] LABS: Reflex Lactate? 2 Y
[2022-11-08 18:03] LABS: ~Lactic Acid-LAB USE ONLY 3.2 mmol/L (0.5-2.0)
--- NOTE | 2022-11-08 18:36 | PC.NURSE ---
report given to MARCIE Mcleod.
[2022-11-08] MEDS: methylPREDNISolone Sod Succ 40 MG/ML VIAL IVPUSH (22:26)
[2022-11-08] MEDS: Benzonatate 100 MG CAPSULE PO (22:32)
[2022-11-08] MEDS: 0.9 % Sodium Chloride Flush 3 ML SYRINGE IVFLUSH (23:42)
[2022-11-09 05:45] LABS: Hematocrit 34.8 % (42.0-52.0); Hemoglobin 11.4 g/dl (14.0-18.0); Mean Corpuscular HGB Conc 32.8 g/dl (31.0-36.0); Mean Corpuscular Hemoglobin 29.5 pg (27.0-33.0); Mean Corpuscular Volume 90.2 fL (80.0-98.0); Mean Platelet Volume 10.4 fL (9.4-12.4); Platelet Count 246 X10*3/uL (160-400); Red Blood Count 3.86 X10*6/uL (4.60-5.80); Red Cell Distribution Width 14.1 % (11.0-16.0); White Blood Count 7.1 X10*3/uL (4.8-10.8)
[2022-11-09 06:01] LABS: Anion Gap 11 (12-20); Blood Urea Nitrogen 24 mg/dL (9-16); Calcium 8.7 mg/dL (8.4-10.2); Carbon Dioxide 22 mmol/L (22-29); Chloride 113 mmol/L (96-108); Creatinine Clr Calc Pharmacy 65.8; Estimated Glomerular Filt Rate > 60; Glucose Random 138 mg/dL (60-115); Potassium 3.9 mmol/L (3.3-5.1); Sodium 142 mmol/L (135-145)
[2022-11-09 07:37] VITALS: BP 150/70; PULSE 88; RESP 24; TEMP 36.9; O2SAT 92
[2022-11-09] MEDS: Albuterol/Iprat 2.5/0.5MG 3 ML AMPUL.NEB INHALE ×4 (07:57→19:04)
--- NOTE | 2022-11-09 08:07 | HO.PM.IMPN ---
Subjective Subjective Date of Service: 11/09/22 Interval History: f/u copd exacerbation interval history: sob is better, persistent cough Physical Exam Vital Signs: Vital Signs: Last Vital Signs Temp 98.4 F 11/09/22 07:37 Pulse 88 11/09/22 07:37 Resp 24 H 11/09/22 07:37 BP 150/70 H 11/09/22 07:37 Pulse Ox 92 11/09/22 07:37 O2 Del Method Nasal Cannula 11/09/22 07:37 O2 Flow Rate 2 11/09/22 07:37 Oxygen Flow Rate 2 11/08/22 12:40 BMI result Body Mass Index 23.7 Const: Other: General: AO X 3, no acute distress Resp: mat wheeze, rhonchi CVS: S1,S2,RRR GI: +BS, NT, no distention Skin: No rash Neuro: motor grossly intact Psych: appropriate affect Objective Data Active Medications Acetaminophen (Acetaminophen 325 Mg Tablet) 650 mg PO Q6H PRN PRN Reason: Pain, Mild (Pain Scale 1-3) Albuterol Sulfate (Albuterol Sulfate 90 Mcg 8 Gm Inhaler) 2 puff INHALE Q6H PRN PRN Reason: Shortness Of Breath Or Wheezing Albuterol/Ipratropium (Albuterol/Iprat 2.5/0.5mg 3 Ml Ampul.Neb) 3 ml INHALE RQ4H WHILE AWAKE [facility] Last Admin: 11/09/22 07:57 Dose: 3 ml Documented By: MARCOS Aspirin (Aspirin Enteric Coated 81 Mg Tablet.) 81 mg PO DAILY [facility] Last Admin: 11/08/22 15:38 Dose: 81 mg Documented By: JOANIE Benzonatate (Benzonatate 100 Mg Capsule) 100 mg PO TID PRN PRN Reason: Cough Last Admin: 11/08/22 22:32 Dose: 100 mg Documented By: GIACOMO Clopidogrel Bisulfate (Clopidogrel Bisulfate 75 Mg Tablet) 75 mg PO DAILY [facility] Last Admin: 11/08/22 15:38 Dose: 75 mg Documented By: JOANIE Docusate Sodium (Docusate Sodium 100 Mg Capsule) 100 mg PO DAILY PRN PRN Reason: Constipation Enoxaparin Sodium (Enoxaparin Sodium 40 Mg/0.4 Ml Syringe) 40 mg SUBCUT Q24H [facility] Last Admin: 11/08/22 15:38 Dose: 40 mg Documented By: JOANIE Fluticasone/Umeclidinium/Vilanterol (Fluticasone/Umeclidinium/Vilanterol 100/62.5/25 Blst.W.Dev) 1 puff INHALE RDAILY [facility] Last Admin: 11/09/22 07:57 Dose: Not Given Documented By: MARCOS Non-Admin Reason: Med Not Available Guaifenesin (Guaifenesin 100 Mg/5 Ml Liquid) 5 ml PO Q6H PRN PRN Reason: Cough Ceftriaxone Sodium 1 gm/ (Sodium Chloride) 50 mls @ 100 mls/hr IV Q24H [facility] Azithromycin 500 mg/ Sodium (Chloride) 250 mls @ 125 mls/hr IV Q24H [facility] Last Infusion: 11/08/22 17:57 Dose: 0 mls/hr Documented By: JOANIE Methylprednisolone Sodium Succinate (Methylprednisolone Sod Succ 40 Mg/Ml Vial) 40 mg IVPUSH Q12H [facility] Last Admin: 11/08/22 22:26 Dose: 40 mg Documented By: GIACOMO Ondansetron HCl (Ondansetron Hcl 4 Mg/2 Ml Vial) 4 mg IVPUSH Q8H PRN PRN Reason: Nausea and Vomiting Pharmacy Consult (Consult Rx Perform Med Rec) 1 each MISCELLANE ONCE PRN PRN Reason: Consult order Sodium Chloride (0.9 % Sodium Chloride Flush 3 Ml Syringe) 3 ml IVFLUSH QSHIFT [facility] Last Admin: 11/08/22 23:42 Dose: 3 ml Documented By: LIZZY Labs 11/09/22 05:30 11/09/22 05:30 Labs: Laboratory Results - last 24 hr 11/08/22 11/08/22 11/08/22 08:42 08:42 08:42 MCV 90.6 MCH 29.6 MCHC 32.7 RDW 13.7 Plt Count 269 MPV 10.0 Immature Gran % (Auto) 0.2 Neut % (Auto) 75.5 H Lymph % (Auto) 13.4 L [place] % (Auto) 9.3 Eos % (Auto) 0.9 Baso % (Auto) 0.7 Lymph # (Auto) 1.3 [place] # (Auto) 0.9 Eos # (Auto) 0.1 Baso # (Auto) 0.1 Abs Immat Gran (auto) 0.02 Absolute Neuts (auto) 7.1 Absolute Nucleated RBC 0.000 Nucleated RBC % (auto) 0.0 PT INR APTT VBG pH VBG pCO2 VBG pO2 VBG HCO3 VBG O2 Saturation VBG Base Excess Anion Gap 13 Estim Creat Clear Calc 57.2 Estimated GFR > 60 Random Glucose 148 H Lactic Acid Lactic Acid F/U @ 2Hr Lactic Acid F/U @ 4Hr Calcium 9.4 Magnesium 2.0 Total Bilirubin 0.3 AST 12 ALT 10 Alkaline Phosphatase 71 Total Protein 7.6 Albumin 4.0 COVID-19 ([facility]) Negative COVID-19 Clin Com See Note 11/08/22 11/08/22 11/08/22 08:42 09:17 12:00 MCV MCH MCHC RDW Plt Count MPV Immature Gran % (Auto) Neut % (Auto) Lymph % (Auto) [place] % (Auto) Eos % (Auto) Baso % (Auto) Lymph # (Auto) [place] # (Auto) Eos # (Auto) Baso # (Auto) Abs Immat Gran (auto) Absolute Neuts (auto) Absolute Nucleated RBC Nucleated RBC % (auto) PT 11.3 INR 0.9 APTT 26.6 VBG pH 7.43 VBG pCO2 35 VBG pO2 41 VBG HCO3 24 VBG O2 Saturation 64.0 VBG Base Excess 0.6 Anion Gap Estim Creat Clear Calc Estimated GFR Random Glucose Lactic Acid 2.7 H* Lactic Acid F/U @ 2Hr Lactic Acid F/U @ 4Hr Calcium Magnesium Total Bilirubin AST ALT Alkaline Phosphatase Total Protein Albumin COVID-19 ([facility]) COVID-19 [employer] 11/08/22 11/08/22 11/09/22 14:40 17:38 05:30 MCV 90.2 MCH 29.5 MCHC 32.8 RDW 14.1 Plt Count 246 MPV 10.4 Immature Gran % (Auto) Neut % (Auto) Lymph % (Auto) [place] % (Auto) Eos % (Auto) Baso % (Auto) Lymph # (Auto) [place] # (Auto) Eos # (Auto) Baso # (Auto) Abs Immat Gran (auto) Absolute Neuts (auto) Absolute Nucleated RBC 0.000 Nucleated RBC % (auto) 0.0 PT INR APTT VBG pH VBG pCO2 VBG pO2 VBG HCO3 VBG O2 Saturation VBG Base Excess Anion Gap Estim Creat Clear Calc Estimated GFR Random Glucose Lactic Acid Lactic Acid F/U @ 2Hr 2.7 H* Lactic Acid F/U @ 4Hr 3.2 H* Calcium Magnesium Total Bilirubin AST ALT Alkaline Phosphatase Total Protein Albumin COVID-19 ([facility]) COVID-19 Clin Com 11/09/22 05:30 MCV MCH MCHC RDW Plt Count MPV Immature Gran % (Auto) Neut % (Auto) Lymph % (Auto) [place] % (Auto) Eos % (Auto) Baso % (Auto) Lymph # (Auto) [place] # (Auto) Eos # (Auto) Baso # (Auto) Abs Immat Gran (auto) Absolute Neuts (auto) Absolute Nucleated RBC Nucleated RBC % (auto) PT INR APTT VBG pH VBG pCO2 VBG pO2 VBG HCO3 VBG O2 Saturation VBG Base Excess Anion Gap 11 L Estim Creat Clear Calc 65.8 Estimated GFR > 60 Random Glucose 138 H Lactic Acid Lactic Acid F/U @ 2Hr Lactic Acid F/U @ 4Hr Calcium 8.7 D Magnesium Total Bilirubin AST ALT Alkaline Phosphatase Total Protein Albumin COVID-19 ([facility]) COVID-19 Clin Com Assessment and Plan (1) COPD exacerbation: Status: Acute (2) Pneumonia: Status: Acute Plan 77-year-old male with a PMH significant for?COPD on 2L home O2 and PAD s/p stenting who presents to the ED with?fever, chills, and diaphoresis since this morning. Patient with chronic SOB and increased cough. CTA concerning for pneumonia versus neoplasm. Pt will be admitted to the hospital for acute hypoxic respiratory failure in the setting of COPD exacerbation likely secondary to pneumonia. Acute hypoxic respiratory failure d/t COPD exacerbation likely secondary to pneumonia -Bronchodilators and IV steroid for copd, cough meds Abnormal CTA of chest, endobronchial filling defect right lower lobe medial basal segment, suggestive of impacted mucus vs neoplasm Left lung base subpleural 31 x 9 mm opacity, atelectasis versus pneumonia versus neoplasm pulmonology consult CAP, Ceftriaxone +Azithro 11/09 and monitor response Abdominal pain, CT show infrarenal AAA 4 centimeters, vascular consult PAD Continue aspirin, Plavix acute Lactic acidosis Likely secondary to hypoxia, not sepsis Pt received IVF in the ED need for inpt: copd exacerbation with acute hypoxic resp failure Time Spent With Patient Time: Total time managing care of this patient today ____ minutes. Quality Stroke Does the patient have a stroke diagnosis?: No VTE Prior VTE?: No VTE Risk Level:: Medical - moderate - high VTE Device Contraindication: Treatment Not Indicated VTE Drug Contraindication: N/A - Med Ordered
[2022-11-09] MEDS: 0.9 % Sodium Chloride Flush 3 ML SYRINGE IVFLUSH (08:23)
[2022-11-09] MEDS: Clopidogrel Bisulfate 75 MG TABLET PO (08:23)
[2022-11-09] MEDS: Aspirin Enteric Coated 81 MG TABLET.DR PO (08:23)
[2022-11-09] MEDS: guaiFENesin 100 MG/5 ML LIQUID PO (08:29)
[2022-11-09 08:51] VITALS: PULSE 88; RESP 18; O2SAT 93
--- NOTE | 2022-11-09 09:49 | MHC.CM.PN ---
PT REPORTS HE LIVES WITH HIS AND IS INDEPENDENT WITH CARE HE REPORTS HE IS OXYGEN DEPENDENT O2 PROVIDED BY [facility] PT ALSO HAS A WALKER HE USES WHEN GOING OUT PT HAS NO SERVICES PT THINKS HE HAS A HCP, HE WILL CHECK WITH HIS AND IS AWARE CM CAN ASSIST IF HE NEEDS ONE PCP: SAADIA MALONE IMM DELIVERED DCP: HOME NO SERVICES. TO TRANSPORT
[2022-11-09] MEDS: methylPREDNISolone Sod Succ 40 MG/ML VIAL IVPUSH ×2 (11:26→21:46)
[2022-11-09] MEDS: cefTRIAXone sodium 1 GM in 0.9 % Sodium Chloride 50 ML IV (11:26)
[2022-11-09] MEDS: Benzonatate 100 MG CAPSULE PO ×2 (11:35→21:54)
--- NOTE | 2022-11-09 12:11 | P.CONGS_ITS ---
History of Present Illness Consult details Consult date: 11/09/22 Reason for consult: other (Abdominal aortic aneurysm without rupture) Narrative: Complex 77-year-old gentleman who presented to the hospital for COPD exacerbation. Upon workup and CT scan was discovered to have an abdominal aortic aneurysm. Does note some abdominal discomfort as well. He now presents for vascular evaluation. [facility] Social History Social History Household Members: Spouse Housing: House Do you presently have visiting nurse or other home services: No Patient Tobacco Use Status: Former Tobacco user Use of substances other than those prescribed or required for medical reasons: No Currently Displaying Signs/Symptoms of Drug Intoxication Withdrawal: No Have you been hit, kicked, punched, or otherwise hurt by someone within the past year? If so, by whom?: No Do you feel safe in your current relationship?: Yes Is there a partner from a previous relationship who is making you feel unsafe now?: No Are you made to feel afraid or neglected: No Yazidi Healthcare Practices: Taoist Advance Directives: No Advance Directives Information Provided: No Do you have thoughts of harming others: None Do you have a plan to hurt others: No Plan Recently lost weight without trying: No Nutrition Risks: No Nutritional Risk service: No Meds Allergies Allergy/AdvReac Type Severity Reaction Status Date / Time No Known Allergies Allergy Verified 11/08/22 08:02 Active Medications: Current Medications Acetaminophen (Acetaminophen 325 Mg Tablet) 650 mg PO Q6H PRN PRN Reason: Pain, Mild (Pain Scale 1-3) Albuterol Sulfate (Albuterol Sulfate 90 Mcg 8 Gm Inhaler) 2 puff INHALE Q6H PRN PRN Reason: Shortness Of Breath Or Wheezing Albuterol/Ipratropium (Albuterol/Iprat 2.5/0.5mg 3 Ml Ampul.Neb) 3 ml INHALE RQ4H WHILE AWAKE [facility] Last Admin: 11/09/22 11:22 Dose: 3 ml Aspirin (Aspirin Enteric Coated 81 Mg Tablet.) 81 mg PO DAILY [facility] Last Admin: 11/09/22 08:23 Dose: 81 mg Benzonatate (Benzonatate 100 Mg Capsule) 100 mg PO TID PRN PRN Reason: Cough Last Admin: 11/09/22 11:35 Dose: 100 mg Clopidogrel Bisulfate (Clopidogrel Bisulfate 75 Mg Tablet) 75 mg PO DAILY [facility] Last Admin: 11/09/22 08:23 Dose: 75 mg Docusate Sodium (Docusate Sodium 100 Mg Capsule) 100 mg PO DAILY PRN PRN Reason: Constipation Enoxaparin Sodium (Enoxaparin Sodium 40 Mg/0.4 Ml Syringe) 40 mg SUBCUT Q24H [facility] Last Admin: 11/08/22 15:38 Dose: 40 mg Fluticasone/Umeclidinium/Vilanterol (Fluticasone/Umeclidinium/Vilanterol 100/62.5/25 Blst.W.Dev) 1 puff INHALE RDAILY [facility] Last Admin: 11/09/22 07:57 Dose: Not Given Guaifenesin (Guaifenesin 100 Mg/5 Ml Liquid) 5 ml PO Q6H PRN PRN Reason: Cough Last Admin: 11/09/22 08:29 Dose: 5 ml Ceftriaxone Sodium 1 gm/ (Sodium Chloride) 50 mls @ 100 mls/hr IV Q24H [facility] Last Infusion: 11/09/22 11:56 Dose: Infused Azithromycin 500 mg/ Sodium (Chloride) 250 mls @ 125 mls/hr IV Q24H [facility] Last Infusion: 11/08/22 17:57 Dose: Infused Methylprednisolone Sodium Succinate (Methylprednisolone Sod Succ 40 Mg/Ml Vial) 40 mg IVPUSH Q12H [facility] Last Admin: 11/09/22 11:26 Dose: 40 mg Ondansetron HCl (Ondansetron Hcl 4 Mg/2 Ml Vial) 4 mg IVPUSH Q8H PRN PRN Reason: Nausea and Vomiting Pharmacy Consult (Consult Rx Perform Med Rec) 1 each MISCELLANE ONCE PRN PRN Reason: Consult order Sodium Chloride (0.9 % Sodium Chloride Flush 3 Ml Syringe) 3 ml IVFLUSH QSHIFT [facility] Last Admin: 11/09/22 08:23 Dose: 3 ml Home Medications Medication Instructions Recorded Confirmed Last Taken Type albuterol sulfate 90 mcg/actuation 2 puff inhalation Q6H PRN 11/08/22 11/08/22 Unknown History aerosol inhaler (Ventolin HFA) Shortness Of Breath Or Wheezing aspirin 81 mg tablet,delayed 81 mg PO DAILY 11/08/22 11/08/22 11/07/22 History release azithromycin 500 mg tablet 500 mg PO MOWEFR@0900 11/08/22 11/08/22 11/07/22 History clopidogrel 75 mg tablet 75 mg PO DAILY 11/08/22 11/08/22 11/07/22 History fluticasone fur. 100 mcg-umeclid 1 ea inhalation DAILY 11/08/22 11/08/22 11/07/22 History 62.5 mcg-vilant 25 mcg inhalat.powder (Trelegy Ellipta) Physical Exam Vital Signs: Vital Signs: Last Vital Signs Temp 98.4 F 11/09/22 07:37 Pulse 88 11/09/22 08:51 Resp 18 11/09/22 08:51 BP 150/70 H 11/09/22 07:37 Pulse Ox 92 11/09/22 07:37 O2 Del Method Nasal Cannula 11/09/22 07:37 O2 Flow Rate 2 11/09/22 07:37 Oxygen Flow Rate 2 11/08/22 12:40 BMI result Body Mass Index 23.7 Results Labs 11/09/22 05:30 11/09/22 05:30 Labs: Abnormal lab results 11/08/22 11/08/22 11/08/22 Range/Units 12:00 14:40 17:38 RBC (4.60-5.80) X10*6/uL Hgb (14.0-18.0) g/dl Hct (42.0-52.0) % Chloride (96-108) mmol/L Anion Gap (12-20) BUN (9-16) mg/dL Random Glucose (60-115) mg/dL Lactic Acid 2.7 H* (0.5-2.0) mmol/L Lactic Acid F/U @ 2Hr 2.7 H* (0.5-2.0) mmol/L Lactic Acid F/U @ 4Hr 3.2 H* (0.5-2.0) mmol/L 11/09/22 11/09/22 Range/Units 05:30 05:30 RBC 3.86 L (4.60-5.80) X10*6/uL Hgb 11.4 L (14.0-18.0) g/dl Hct 34.8 L (42.0-52.0) % Chloride 113 H (96-108) mmol/L Anion Gap 11 L (12-20) BUN 24 H (9-16) mg/dL Random Glucose 138 H (60-115) mg/dL Lactic Acid (0.5-2.0) mmol/L Lactic Acid F/U @ 2Hr (0.5-2.0) mmol/L Lactic Acid F/U @ 4Hr (0.5-2.0) mmol/L Short CBC 11/09/22 Range/Units 05:30 WBC 7.1 (4.8-10.8) X10*3/uL Hgb 11.4 L (14.0-18.0) g/dl Hct 34.8 L (42.0-52.0) % Plt Count 246 (160-400) X10*3/uL BMP 11/09/22 05:30 Sodium 142 Potassium 3.9 Chloride 113 H Carbon Dioxide 22 BUN 24 H Creatinine 0.94 Calcium 8.7 D All other labs normal. Imaging Additional studies: CT scan reviewed demonstrates 4.2 cm abdominal aortic aneurysm Assessment and Plan (1) AAA (abdominal aortic aneurysm) without rupture: Status: Acute In short patient has a stable 4.2 cm abdominal aortic aneurysm. I do not feel that this is the source of his abdominal discomfort. There is no evidence of rupture. It appears to be stable. Will need continued surveillance follow-up of this. He can see us as an outpatient in follow-up. (2) PAD (peripheral artery disease): Status: Acute Plan Has had prior left lower extremity stenting by Dr. Feliciano many years prior. He has not had surveillance follow-up in some time. Once his acute COPD event and hospitalization resolves he can see us as an outpatient and we can schedule surveillance follow-up for that as well. Thank you for allowing us to assist in his care. If there are any questions or concerns please do not hesitate to contact us. Time Spent With Patient Time: Total time managing care of this patient today ____ minutes. Procedures Date of Service Date of Service: 11/09/22
[2022-11-09] MEDS: Azithromycin 500 MG in 0.9 % Sodium Chloride 250 ML 125 MG IV (15:20)
[2022-11-09] MEDS: Enoxaparin Sodium 40 MG/0.4 ML SYRINGE SUBCUT (15:20)
[2022-11-09 15:46] VITALS: BP 150/79; PULSE 98; RESP 22; TEMP 36.4; O2SAT 93
[2022-11-09 19:06] VITALS: PULSE 98; RESP 22; O2SAT 92
[2022-11-09] MEDS: Acetaminophen 325 MG TABLET 650 MG PO (21:54)
[2022-11-09] MEDS: Melatonin 3 MG TABLET 6 MG PO (22:48)
[2022-11-09 23:40] VITALS: BP 120/61; PULSE 95; RESP 16; TEMP 36.2; O2SAT 93
[2022-11-10] MEDS: Albuterol/Iprat 2.5/0.5MG 3 ML AMPUL.NEB INHALE ×4 (07:30→19:24)
[2022-11-10 07:52] VITALS: BP 167/84; PULSE 88; RESP 24; TEMP 36.4; O2SAT 94
--- NOTE | 2022-11-10 08:05 | P.PNIM_ITS ---
Subjective Subjective Date of Service: 11/10/22 Interval History: f/u copd exacerbation interval history: SOB and cough are better Physical Exam Vital Signs: Vital Signs: Last Vital Signs Temp 97.5 F 11/10/22 07:52 Pulse 88 11/10/22 07:52 Resp 24 H 11/10/22 07:52 BP 167/84 H 11/10/22 07:52 Pulse Ox 94 11/10/22 07:52 O2 Del Method Nasal Cannula 11/10/22 07:52 O2 Flow Rate 2 11/10/22 07:52 Oxygen Flow Rate 2 11/08/22 12:40 BMI result Body Mass Index 23.7 Const: Other: General: AO X 3, no acute distress Resp: mat wheeze, rhonchi CVS: S1,S2,RRR GI: +BS, NT, no distention Skin: No rash Neuro: motor grossly intact Psych: appropriate affect Objective Data Active Medications Acetaminophen (Acetaminophen 325 Mg Tablet) 650 mg PO Q6H PRN PRN Reason: Pain, Mild (Pain Scale 1-3) Last Admin: 11/09/22 21:54 Dose: 650 mg Documented By: GIACOMO Albuterol Sulfate (Albuterol Sulfate 90 Mcg 8 Gm Inhaler) 2 puff INHALE Q6H PRN PRN Reason: Shortness Of Breath Or Wheezing Albuterol/Ipratropium (Albuterol/Iprat 2.5/0.5mg 3 Ml Ampul.Neb) 3 ml INHALE RQ4H WHILE AWAKE [facility] Last Admin: 11/10/22 07:30 Dose: 3 ml Documented By: MARCOS Aspirin (Aspirin Enteric Coated 81 Mg Tablet.) 81 mg PO DAILY [facility] Last Admin: 11/09/22 08:23 Dose: 81 mg Documented By: ANOOP Benzonatate (Benzonatate 100 Mg Capsule) 100 mg PO TID PRN PRN Reason: Cough Last Admin: 11/09/22 21:54 Dose: 100 mg Documented By: GIACOMO Clopidogrel Bisulfate (Clopidogrel Bisulfate 75 Mg Tablet) 75 mg PO DAILY [facility] Last Admin: 11/09/22 08:23 Dose: 75 mg Documented By: ANOOP Docusate Sodium (Docusate Sodium 100 Mg Capsule) 100 mg PO DAILY PRN PRN Reason: Constipation Enoxaparin Sodium (Enoxaparin Sodium 40 Mg/0.4 Ml Syringe) 40 mg SUBCUT Q24H [facility] Last Admin: 11/09/22 15:20 Dose: 40 mg Documented By: ANOOP Fluticasone/Umeclidinium/Vilanterol (Fluticasone/Umeclidinium/Vilanterol 100/62.5/25 Blst.W.Dev) 1 puff INHALE RDAILY [facility] Last Admin: 11/10/22 07:30 Dose: Not Given Documented By: MARCOS Non-Admin Reason: med not avail, pharm notified Guaifenesin (Guaifenesin 100 Mg/5 Ml Liquid) 5 ml PO Q6H PRN PRN Reason: Cough Last Admin: 11/09/22 08:29 Dose: 5 ml Documented By: ANOOP Ceftriaxone Sodium 1 gm/ (Sodium Chloride) 50 mls @ 100 mls/hr IV Q24H [facility] Last Infusion: 11/09/22 11:56 Dose: 0 mls/hr Documented By: ANOOP Azithromycin 500 mg/ Sodium (Chloride) 250 mls @ 125 mls/hr IV Q24H [facility] Last Infusion: 11/09/22 17:27 Dose: 0 mls/hr Documented By: GIACOMO Melatonin (Melatonin 3 Mg Tablet) 6 mg PO BEDTIME PRN PRN Reason: Insomnia Last Admin: 11/09/22 22:48 Dose: 6 mg Documented By: GIACOMO Methylprednisolone Sodium Succinate (Methylprednisolone Sod Succ 40 Mg/Ml Vial) 40 mg IVPUSH Q12H [facility] Last Admin: 11/09/22 21:46 Dose: 40 mg Documented By: GIACOMO Ondansetron HCl (Ondansetron Hcl 4 Mg/2 Ml Vial) 4 mg IVPUSH Q8H PRN PRN Reason: Nausea and Vomiting Pharmacy Consult (Consult Rx Perform Med Rec) 1 each MISCELLANE ONCE PRN PRN Reason: Consult order Sodium Chloride (0.9 % Sodium Chloride Flush 3 Ml Syringe) 3 ml IVFLUSH QSHIFT [facility] Last Admin: 11/10/22 00:35 Dose: Not Given Documented By: PILI Non-Admin Reason: Patient Asleep Labs 11/09/22 05:30 11/09/22 05:30 Microbiology Microbiology Results: Microbiology 11/08/22 12:00 Blood Culture - Preliminary Blood - Venous No growth after 24 hours. 11/08/22 12:00 Blood Culture - Preliminary Blood - Venous No growth after 24 hours. Assessment and Plan (1) COPD exacerbation: Status: Acute (2) Pneumonia: Status: Acute Plan 77-year-old male with a PMH significant for?COPD on 2L home O2 and PAD s/p stenting who presents to the ED with?fever, chills, and diaphoresis since this morning. Patient with chronic SOB and increased cough. CTA concerning for pneumonia versus neoplasm. Pt will be admitted to the hospital for acute hypoxic respiratory failure in the setting of COPD exacerbation likely secondary to p neumonia. Acute hypoxic respiratory failure d/t COPD exacerbation likely due to pneumonia -Bronchodilators, change to Prednisone, cough meds Abnormal CTA of chest, endobronchial filling defect right lower lobe medial basal segment, suggestive of impacted mucus vs neoplasm Left lung base subpleural 31 x 9 mm opacity, atelectasis versus pneumonia versus neoplasm pulmonology consult CAP, Ceftriaxone +Azithro 11/09 and monitor response Abdominal pain, CT show infrarenal AAA 4 centimeters, vascular consult PAD Continue aspirin, Plavix acute Lactic acidosis Likely secondary to hypoxia, not sepsis Pt received IVF in the ED need for inpt: copd exacerbation with acute hypoxic resp failure, probably home tomorrow Time Spent With Patient Time: Total time managing care of this patient today ____ minutes. Quality Stroke Does the patient have a stroke diagnosis?: No VTE Prior VTE?: No VTE Risk Level:: Medical - moderate - high VTE Device Contraindication: Treatment Not Indicated VTE Drug Contraindication: N/A - Med Ordered
[2022-11-10] MEDS: Clopidogrel Bisulfate 75 MG TABLET PO (08:56)
[2022-11-10] MEDS: Aspirin Enteric Coated 81 MG TABLET.DR PO (08:56)
[2022-11-10] MEDS: 0.9 % Sodium Chloride Flush 3 ML SYRINGE IVFLUSH ×3 (08:57→19:40)
[2022-11-10] MEDS: guaiFENesin 100 MG/5 ML LIQUID PO ×2 (09:03→21:48)
--- NOTE | 2022-11-10 11:03 | PM.CNPUL ---
History of Present Illness History of Present Illness Consult date: 11/10/22 Reason for consult: dyspnea, cough, COPD and pneumonia Chief complaint: SOB Abdominal Pain Narrative: PULMONARY CONSULT : This 77 years old gentleman, presented to the emergency room, with the chief complaint of discomfort in the upper abdomen, went to the bathroom, and on returning back had an episode of sweating marked generalized weakness and increased shortness of breath. He denies having had any fever or chills, has had increasing amount of cough and shortness of breath. 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 Patient had a recent change of his primary care physician, from [place] to someone located here in [place]. But he does not remember the names. From our records it is evident that he is not seeing any one in our pulmonary group. He has past history of smoking for 40 years ( 1 pk a day ) and quit about 7 years ago. He has longstanding history of cough shortness of breath diagnosed as chronic obstructive pulmonary disease , treated with Trelegy Ellipta 1 inhalation daily and Ventolin 2 puffs Q 6 hours p.r.n.. Recently started on azithromycin 500 mg 3 days a week. Patient is also on oxygen supplementation at home 2 L/minute at rest and 4 L/minute with ambulation. This gentleman also has history of peripheral vascular disease, status post stenting of 1 of the arteries. Review of Systems Review of Systems: Yes all other systems are reviewed and are negative Eyes: Eyes: Reports no additional eye complaints ENT: Reports system reviewed and no additional complaints, except as documented Cardiovascular: Cardiovascular: Denies chest pain, Denies irregular heart rhythm and Denies leg edema Respiratory: Respiratory: Reports as per HPI Gastrointestinal: Gastrointestinal: Reports abdominal pain and Reports nausea Genitourinary: Genitourinary: Reports urinary frequency Musculoskeletal: Musculoskeletal: Reports no additional musculoskeletal complaints Integumentary/Breasts: Skin/Breast: Reports system reviewed and no additional complaints, except as docu Neurologic: Reports system reviewed and no additional complaints, except as documented Psychiatric: Psychiatric: Reports no additional psychiatric complaints [facility] Past Medical History Medical History (Updated 11/10/22 @ 11:19 by Valerie Geronimo MD) Mucus plugging of bronchi Social History Social History Household Members: Spouse Housing: House Do you presently have visiting nurse or other home services: No Patient Tobacco Use Status: Former Tobacco user Use of substances other than those prescribed or required for medical reasons: No Currently Displaying Signs/Symptoms of Drug Intoxication Withdrawal: No Have you been hit, kicked, punched, or otherwise hurt by someone within the past year? If so, by whom?: No Do you feel safe in your current relationship?: Yes Is there a partner from a previous relationship who is making you feel unsafe now?: No Are you made to feel afraid or neglected: No Faith Healthcare Practices: [employer] Advance Directives: No Advance Directives Information Provided: No Do you have thoughts of harming others: None Do you have a plan to hurt others: No Plan Recently lost weight without trying: No Nutrition Risks: No Nutritional Risk service: No Meds Allergies Allergy/AdvReac Type Severity Reaction Status Date / Time No Known Allergies Allergy Verified 11/08/22 08:02 Active Medications: Current Medications Acetaminophen (Acetaminophen 325 Mg Tablet) 650 mg PO Q6H PRN PRN Reason: Pain, Mild (Pain Scale 1-3) Last Admin: 11/09/22 21:54 Dose: 650 mg Albuterol Sulfate (Albuterol Sulfate 90 Mcg 8 Gm Inhaler) 2 puff INHALE Q6H PRN PRN Reason: Shortness Of Breath Or Wheezing Albuterol/Ipratropium (Albuterol/Iprat 2.5/0.5mg 3 Ml Ampul.Neb) 3 ml INHALE RQ4H WHILE AWAKE [facility] Last Admin: 11/10/22 07:30 Dose: 3 ml Aspirin (Aspirin Enteric Coated 81 Mg Tablet.Dr) 81 mg PO DAILY [facility] Last Admin: 11/10/22 08:56 Dose: 81 mg Benzonatate (Benzonatate 100 Mg Capsule) 100 mg PO TID PRN PRN Reason: Cough Last Admin: 11/09/22 21:54 Dose: 100 mg Clopidogrel Bisulfate (Clopidogrel Bisulfate 75 Mg Tablet) 75 mg PO DAILY [facility] Last Admin: 11/10/22 08:56 Dose: 75 mg Docusate Sodium (Docusate Sodium 100 Mg Capsule) 100 mg PO DAILY PRN PRN Reason: Constipation Enoxaparin Sodium (Enoxaparin Sodium 40 Mg/0.4 Ml Syringe) 40 mg SUBCUT Q24H [facility] Last Admin: 11/09/22 15:20 Dose: 40 mg Fluticasone/Umeclidinium/Vilanterol (Fluticasone/Umeclidinium/Vilanterol 100/62.5/25 Blst.W.Dev) 1 puff INHALE RDAILY [facility] Last Admin: 11/10/22 07:30 Dose: Not Given Guaifenesin (Guaifenesin 100 Mg/5 Ml Liquid) 5 ml PO Q6H PRN PRN Reason: Cough Last Admin: 11/10/22 09:03 Dose: 5 ml Ceftriaxone Sodium 1 gm/ (Sodium Chloride) 50 mls @ 100 mls/hr IV Q24H [facility] Last Infusion: 11/09/22 11:56 Dose: Infused Azithromycin 500 mg/ Sodium (Chloride) 250 mls @ 125 mls/hr IV Q24H [facility] Last Infusion: 11/09/22 17:27 Dose: Infused Melatonin (Melatonin 3 Mg Tablet) 6 mg PO BEDTIME PRN PRN Reason: Insomnia Last Admin: 11/09/22 22:48 Dose: 6 mg Methylprednisolone Sodium Succinate (Methylprednisolone Sod Succ 40 Mg/Ml Vial) 40 mg IVPUSH Q12H [facility] Last Admin: 11/09/22 21:46 Dose: 40 mg Ondansetron HCl (Ondansetron Hcl 4 Mg/2 Ml Vial) 4 mg IVPUSH Q8H PRN PRN Reason: Nausea and Vomiting Pharmacy Consult (Consult Rx Perform Med Rec) 1 each MISCELLANE ONCE PRN PRN Reason: Consult order Sodium Chloride (0.9 % Sodium Chloride Flush 3 Ml Syringe) 3 ml IVFLUSH QSHIFT [facility] Last Admin: 11/10/22 08:57 Dose: 3 ml Home Medications Medication Instructions Recorded Confirmed Last Taken Type albuterol sulfate 90 mcg/actuation 2 puff inhalation Q6H PRN 11/08/22 11/08/22 Unknown History aerosol inhaler (Ventolin HFA) Shortness Of Breath Or Wheezing aspirin 81 mg tablet,delayed 81 mg PO DAILY 11/08/22 11/08/22 11/07/22 History release azithromycin 500 mg tablet 500 mg PO MOWEFR@0900 11/08/22 11/08/22 11/07/22 History clopidogrel 75 mg tablet 75 mg PO DAILY 11/08/22 11/08/22 11/07/22 History fluticasone fur. 100 mcg-umeclid 1 ea inhalation DAILY 11/08/22 11/08/22 11/07/22 History 62.5 mcg-vilant 25 mcg inhalat.powder (Trelegy Ellipta) Physical Exam Vital Signs: Vital Signs: Last Vital Signs Temp 97.5 F 11/10/22 07:52 Pulse 88 11/10/22 07:52 Resp 24 H 11/10/22 07:52 BP 167/84 H 11/10/22 07:52 Pulse Ox 94 11/10/22 07:52 O2 Del Method Nasal Cannula 11/10/22 07:52 O2 Flow Rate 2 11/10/22 07:52 Oxygen Flow Rate 2 11/08/22 12:40 BMI result Body Mass Index 23.7 Const: General: comfortable, no acute distress, alert and awake Orientation/consciousness: patient oriented x3 HEENT: Head: Yes normal to inspection General nose exam: No nasal polyps present and No nasal discharge present Face and sinus: Yes sinuses nontender Mouth: oropharynx normal Teeth and gingiva: edentulous Throat: Yes posterior oropharynx normal Eyes: General: appearance normal, both eyes and all related structures Neck: Neck: Yes normal visual inspection, Yes no lymphadenopathy, Yes trachea midline and Yes no JVD Thyroid: Thyroid normal Chest: Chest palpation & inspection: normal inspection of the chest, normal palpation of entire chest wall and no tenderness Resp: Other: Percussion note resonant, breath sounds are distant on both sides with prolonged expiratory phase, has a few inspiratory Creps over the right base. Somewhat bronchial breathing over the left lower lobe area with a few inspiratory Creps. No wheezes. Cardio: Palpation: normal PMI Rate: regular rate Rhythm: regular rhythm Heart sounds: no gallops and no murmurs GI: Palpation (GI): Soft to palpation, nontender, No hepatosplenomegaly present and no masses Auscultation: normal bowel sounds Back/Spine/Pelvis: Thoracic/Lumbar Spine: thoracic and lumbar spine normal to inspection Skin: General skin exam: no rashes or lesions noted Neuro: General: patient oriented x3, No gait normal (Not tested) and no focal motor deficits Cranial nerves: Yes CN's II-XII intact bilaterally Extrem: General: Yes normal to inspection, Yes no clubbing, cyanosis or edema, Yes no calf tenderness and Yes other (Peripheral pulses are not palpable) Psych: Appearance: grossly normal Results Laboratory Findings 11/09/22 05:30 11/09/22 05:30 ABG, PT/INR, D-dimer: PT/INR, D-dimer PT 11.3 SEC (11.1-13.3) 11/08/22 09:17 INR 0.9 (0.9-1.1) 11/08/22 09:17 Abnormal lab findings: Abnormal Labs 11/08/22 11/08/22 11/08/22 08:42 08:42 12:00 RBC 4.49 L Hgb 13.3 L Hct 40.7 L Neut % (Auto) 75.5 H Lymph % (Auto) 13.4 L Chloride Anion Gap BUN 28 H Random Glucose 148 H Lactic Acid 2.7 H* Lactic Acid F/U @ 2Hr Lactic Acid F/U @ 4Hr 11/08/22 11/08/22 11/09/22 14:40 17:38 05:30 RBC 3.86 L Hgb 11.4 L Hct 34.8 L Neut % (Auto) Lymph % (Auto) Chloride Anion Gap BUN Random Glucose Lactic Acid Lactic Acid F/U @ 2Hr 2.7 H* Lactic Acid F/U @ 4Hr 3.2 H* 11/09/22 05:30 RBC Hgb Hct Neut % (Auto) Lymph % (Auto) Chloride 113 H Anion Gap 11 L BUN 24 H Random Glucose 138 H Lactic Acid Lactic Acid F/U @ 2Hr Lactic Acid F/U @ 4Hr Microbiology: Microbiology 11/08/22 12:00 Blood - Venous Blood Culture - Preliminary No growth after 24 hours. 11/08/22 12:00 Blood - Venous Blood Culture - Preliminary No growth after 24 hours. Diagnostic Findings Chest x-ray: report reviewed and image reviewed CT scan - chest: report reviewed and image reviewed Assessment and Plan (1) COPD exacerbation: Status: Acute (2) Pneumonia: Status: Acute (3) Mucus plugging of bronchi: Status: Acute Plan 77 years old gentleman who seems to have advanced chronic obstructive pulmonary disease, O2 dependent, with previous history of smoking is for about 40 years. Recently started on azithromycin. I wonder if that is causing some gastric discomfort, upper abdominal discomfort and may have contributed to some of his initial symptoms. There is the evidence of mucus plugging especially in the right base and pneumonia/atelectasis left base. He needs treatment for acute exacerbation of COPD. I agree with the current treatment, including IV Solu-Medrol, , O2 supplementation, DuoNeb updrafts , and antibiotics ( azithromycin plus ceftriaxone ) Add Mucomyst in the updrafts b.i.d. and may start on Mucinex 1200 mg b.i.d. for a few days. Incentive spirometry and Acapella well 3 times a day. If patient does not show much improvement, then he may be candidate for bronchoscopic examination and bronchial lavage urge. Time Spent With Patient Time: Total time managing care of this patient today ____ minutes. Procedures Date of Service Date of Service: 11/10/22
[2022-11-10] MEDS: methylPREDNISolone Sod Succ 40 MG/ML VIAL IVPUSH ×2 (11:25→23:01)
[2022-11-10] MEDS: cefTRIAXone sodium 1 GM in 0.9 % Sodium Chloride 50 ML IV (11:28)
[2022-11-10 11:29] VITALS: PULSE 95; RESP 20; O2SAT 93
[2022-11-10] MEDS: Enoxaparin Sodium 40 MG/0.4 ML SYRINGE SUBCUT (14:34)
[2022-11-10 15:25] VITALS: PULSE 75; RESP 18; O2SAT 93
[2022-11-10 15:37] VITALS: BP 169/82; PULSE 90; RESP 22; TEMP 36.4; O2SAT 92
[2022-11-10] MEDS: Azithromycin 500 MG in 0.9 % Sodium Chloride 250 ML 125 MG IV (16:00)
[2022-11-10 19:25] VITALS: PULSE 90; RESP 18; O2SAT 92
[2022-11-10 19:55] VITALS: BP 151/83; PULSE 100; RESP 24; TEMP 36.6; O2SAT 94
[2022-11-10] MEDS: Benzonatate 100 MG CAPSULE PO (23:11)
[2022-11-11] VITALS (9 sets, daily range): BP systolic 130–170; BP diastolic 63–82; PULSE 75–97; RESP 16–22; TEMP 36.5–36.8; O2SAT 92–96
[2022-11-11] MEDS: guaiFENesin 100 MG/5 ML LIQUID PO ×3 (04:00→23:27)
[2022-11-11] MEDS: Acetaminophen 325 MG TABLET 650 MG PO ×2 (04:01→23:27)
[2022-11-11] MEDS: Albuterol/Iprat 2.5/0.5MG 3 ML AMPUL.NEB INHALE ×4 (07:38→20:02)
--- NOTE | 2022-11-11 08:59 | HO.PM.IMPN ---
Subjective Subjective Date of Service: 11/11/22 Interval History: f/u copd exacerbation interval history: persistent cough, sob Physical Exam Vital Signs: Vital Signs: Last Vital Signs Temp 98.2 F 11/11/22 07:24 Pulse 77 11/11/22 08:18 Resp 18 11/11/22 08:18 BP 158/79 H 11/11/22 07:24 Pulse Ox 93 11/11/22 07:24 O2 Del Method Nasal Cannula 11/11/22 07:24 O2 Flow Rate 2 11/11/22 07:24 Oxygen Flow Rate 2 11/08/22 12:40 BMI result Body Mass Index 23.7 Const: Other: General: AO X 3, no acute distress Resp: mat wheeze, rhonchi CVS: S1,S2,RRR GI: +BS, NT, no distention Skin: No rash Neuro: motor grossly intact Psych: appropriate affect Objective Data Active Medications Acetaminophen (Acetaminophen 325 Mg Tablet) 650 mg PO Q6H PRN PRN Reason: Pain, Mild (Pain Scale 1-3) Last Admin: 11/11/22 04:01 Dose: 650 mg Documented By: PILI Albuterol Sulfate (Albuterol Sulfate 90 Mcg 8 Gm Inhaler) 2 puff INHALE Q6H PRN PRN Reason: Shortness Of Breath Or Wheezing Albuterol/Ipratropium (Albuterol/Iprat 2.5/0.5mg 3 Ml Ampul.Neb) 3 ml INHALE RQ4H WHILE AWAKE [facility] Last Admin: 11/11/22 07:38 Dose: 3 ml Documented By: MARCOS Aspirin (Aspirin Enteric Coated 81 Mg Tablet.) 81 mg PO DAILY [facility] Last Admin: 11/10/22 08:56 Dose: 81 mg Documented By: JAZMYN Benzonatate (Benzonatate 100 Mg Capsule) 100 mg PO TID PRN PRN Reason: Cough Last Admin: 11/10/22 23:11 Dose: 100 mg Documented By: PILI Clopidogrel Bisulfate (Clopidogrel Bisulfate 75 Mg Tablet) 75 mg PO DAILY [facility] Last Admin: 11/10/22 08:56 Dose: 75 mg Documented By: JAZMYN Docusate Sodium (Docusate Sodium 100 Mg Capsule) 100 mg PO DAILY PRN PRN Reason: Constipation Docusate Sodium (Docusate Sodium 100 Mg Capsule) 100 mg PO BID [facility] Enoxaparin Sodium (Enoxaparin Sodium 40 Mg/0.4 Ml Syringe) 40 mg SUBCUT Q24H [facility] Last Admin: 11/10/22 14:34 Dose: 40 mg Documented By: JAZMYN Fluticasone/Umeclidinium/Vilanterol (Fluticasone/Umeclidinium/Vilanterol 100/62.5/25 Blst.W.Dev) 1 puff INHALE RDAILY [facility] Last Admin: 11/11/22 07:38 Dose: Not Given Documented By: MARCOS Non-Admin Reason: Med Not Available Guaifenesin (Guaifenesin 100 Mg/5 Ml Liquid) 5 ml PO Q6H PRN PRN Reason: Cough Last Admin: 11/11/22 04:00 Dose: 5 ml Documented By: PILI Ceftriaxone Sodium 1 gm/ (Sodium Chloride) 50 mls @ 100 mls/hr IV Q24H [facility] Last Infusion: 11/10/22 12:14 Dose: 0 mls/hr Documented By: JAZMYN Azithromycin 500 mg/ Sodium (Chloride) 250 mls @ 125 mls/hr IV Q24H [facility] Last Infusion: 11/10/22 19:12 Dose: 125 mls/hr Documented By: ELEONORA Melatonin (Melatonin 3 Mg Tablet) 6 mg PO BEDTIME PRN PRN Reason: Insomnia Last Admin: 11/09/22 22:48 Dose: 6 mg Documented By: GIACOMO Methylprednisolone Sodium Succinate (Methylprednisolone Sod Succ 40 Mg/Ml Vial) 40 mg IVPUSH Q12H [facility] Last Admin: 11/10/22 23:01 Dose: 40 mg Documented By: PILI Ondansetron HCl (Ondansetron Hcl 4 Mg/2 Ml Vial) 4 mg IVPUSH Q8H PRN PRN Reason: Nausea and Vomiting Pharmacy Consult (Consult Rx Perform Med Rec) 1 each MISCELLANE ONCE PRN PRN Reason: Consult order Sodium Chloride (0.9 % Sodium Chloride Flush 3 Ml Syringe) 3 ml IVFLUSH QSHIFT [facility] Last Admin: 11/10/22 19:40 Dose: 3 ml Documented By: PILI Labs 11/09/22 05:30 11/09/22 05:30 Microbiology Microbiology Results: Microbiology 11/08/22 12:00 Blood Culture - Preliminary Blood - Venous No growth after 48 hours. 11/08/22 12:00 Blood Culture - Preliminary Blood - Venous No growth after 48 hours. Assessment and Plan (1) COPD exacerbation: Status: Acute (2) Pneumonia: Status: Acute Plan 77-year-old male with a PMH significant for?COPD on 2L home O2 and PAD s/p stenting who presents to the ED with?fever, chills, and diaphoresis since this morning. Patient with chronic SOB and increased cough. CTA concerning for pneumonia versus neoplasm. Pt will be admitted to the hospital for acute hypoxic respiratory failure in the setting of COPD exacerbation likely secondary to pneumonia. Acute hypoxic respiratory failure d/t COPD exacerbation likely due to pneumonia, and mucus plugs -Bronchodilators, continue solumedrol, cough meds, may need bronchoscopy with washing Abnormal CTA of chest, endobronchial filling defect right lower lobe medial basal segment, suggestive of impacted mucus vs neoplasm Left lung base subpleural 31 x 9 mm opacity, atelectasis versus pneumonia versus neoplasm--suspected mucus plug, to be eval tomorrow for possible bronchoscop CAP, Ceftriaxone +Azithro 11/09 and monitor response Abdominal pain, CT show infrarenal AAA 4 centimeters, vascular surgery recommends no intervention at this time PAD Continue aspirin, Plavix acute Lactic acidosis Likely secondary to hypoxia, not sepsis Pt received IVF in the ED need for inpt: copd exacerbation with acute hypoxic resp failure, probably home tomorrow Time Spent With Patient Time: Total time managing care of this patient today ____ minutes. Quality Stroke Does the patient have a stroke diagnosis?: No VTE Prior VTE?: No VTE Risk Level:: Medical - moderate - high VTE Device Contraindication: Treatment Not Indicated VTE Drug Contraindication: N/A - Med Ordered
[2022-11-11] MEDS: 0.9 % Sodium Chloride Flush 3 ML SYRINGE IVFLUSH ×2 (09:08→21:12)
[2022-11-11] MEDS: Docusate Sodium 100 MG CAPSULE PO ×2 (09:09→21:12)
[2022-11-11] MEDS: Aspirin Enteric Coated 81 MG TABLET.DR PO (09:09)
[2022-11-11] MEDS: Clopidogrel Bisulfate 75 MG TABLET PO (09:09)
[2022-11-11] MEDS: polyethylene glycoL 3350 17 GM POWD.PACK PO (09:11)
[2022-11-11] MEDS: Benzonatate 100 MG CAPSULE PO (09:29)
[2022-11-11] MEDS: cefTRIAXone sodium 1 GM in 0.9 % Sodium Chloride 50 ML IV (11:39)
[2022-11-11] MEDS: methylPREDNISolone Sod Succ 40 MG/ML VIAL IVPUSH ×2 (11:39→21:12)
[2022-11-11] MEDS: Azithromycin 500 MG in 0.9 % Sodium Chloride 250 ML 125 MG IV (14:49)
[2022-11-11] MEDS: Enoxaparin Sodium 40 MG/0.4 ML SYRINGE SUBCUT (14:49)
[2022-11-12] VITALS (8 sets, daily range): BP systolic 130–161; BP diastolic 62–77; PULSE 83–102; RESP 15–20; TEMP 36.1–36.6; O2SAT 90–96
--- NOTE | 2022-11-12 08:17 | HO.PM.IMPN ---
Subjective Subjective Date of Service: 11/12/22 Interval History: f/u copd exacerbation interval history: persistent cough, sob but overll improving Physical Exam Vital Signs: Vital Signs: Last Vital Signs Temp 98 F 11/12/22 07:08 Pulse 96 11/12/22 07:08 Resp 16 11/12/22 07:08 BP 130/62 11/12/22 07:08 Pulse Ox 95 11/12/22 07:08 O2 Del Method Nasal Cannula 11/12/22 07:08 O2 Flow Rate 2 11/12/22 07:08 Oxygen Flow Rate 2 11/08/22 12:40 BMI result Body Mass Index 23.7 Const: Other: General: AO X 3, no acute distress Resp: No wheeze, +rhonchi, no respi distress CVS: S1,S2,RRR GI: +BS, NT, no distention Skin: No rash Neuro: motor grossly intact Psych: appropriate affect Objective Data Active Medications Acetaminophen (Acetaminophen 325 Mg Tablet) 650 mg PO Q6H PRN PRN Reason: Pain, Mild (Pain Scale 1-3) Last Admin: 11/11/22 23:27 Dose: 650 mg Documented By: JAMES Albuterol Sulfate (Albuterol Sulfate 90 Mcg 8 Gm Inhaler) 2 puff INHALE Q6H PRN PRN Reason: Shortness Of Breath Or Wheezing Albuterol/Ipratropium (Albuterol/Iprat 2.5/0.5mg 3 Ml Ampul.Neb) 3 ml INHALE RQ4H WHILE AWAKE [facility] Last Admin: 11/11/22 20:02 Dose: 3 ml Documented By: FILEMON Aspirin (Aspirin Enteric Coated 81 Mg Tablet.) 81 mg PO DAILY [facility] Last Admin: 11/11/22 09:09 Dose: 81 mg Documented By: ANURADHA Benzonatate (Benzonatate 100 Mg Capsule) 100 mg PO TID PRN PRN Reason: Cough Last Admin: 11/11/22 09:29 Dose: 100 mg Documented By: ANURADHA Clopidogrel Bisulfate (Clopidogrel Bisulfate 75 Mg Tablet) 75 mg PO DAILY [facility] Last Admin: 11/11/22 09:09 Dose: 75 mg Documented By: ANURADHA Docusate Sodium (Docusate Sodium 100 Mg Capsule) 100 mg PO DAILY PRN PRN Reason: Constipation Docusate Sodium (Docusate Sodium 100 Mg Capsule) 100 mg PO BID [facility] Last Admin: 11/11/22 21:12 Dose: 100 mg Documented By: JAMES Enoxaparin Sodium (Enoxaparin Sodium 40 Mg/0.4 Ml Syringe) 40 mg SUBCUT Q24H [facility] Last Admin: 11/11/22 14:49 Dose: 40 mg Documented By: ANURADHA Fluticasone/Umeclidinium/Vilanterol (Fluticasone/Umeclidinium/Vilanterol 100/62.5/25 Blst.W.Dev) 1 puff INHALE RDAILY [facility] Last Admin: 11/11/22 07:38 Dose: Not Given Documented By: MARCOS Non-Admin Reason: Med Not Available Guaifenesin (Guaifenesin 100 Mg/5 Ml Liquid) 5 ml PO Q6H PRN PRN Reason: Cough Last Admin: 11/11/22 23:27 Dose: 5 ml Documented By: JAMES Ceftriaxone Sodium 1 gm/ (Sodium Chloride) 50 mls @ 100 mls/hr IV Q24H [facility] Last Infusion: 11/11/22 12:22 Dose: 0 mls/hr Documented By: ANURADHA Azithromycin 500 mg/ Sodium (Chloride) 250 mls @ 125 mls/hr IV Q24H [facility] Last Infusion: 11/11/22 16:54 Dose: 0 mls/hr Documented By: ANURADHA Melatonin (Melatonin 3 Mg Tablet) 6 mg PO BEDTIME PRN PRN Reason: Insomnia Last Admin: 11/09/22 22:48 Dose: 6 mg Documented By: GIACOMO Methylprednisolone Sodium Succinate (Methylprednisolone Sod Succ 40 Mg/Ml Vial) 40 mg IVPUSH Q12H [facility] Last Admin: 11/11/22 21:12 Dose: 40 mg Documented By: JAMES Ondansetron HCl (Ondansetron Hcl 4 Mg/2 Ml Vial) 4 mg IVPUSH Q8H PRN PRN Reason: Nausea and Vomiting Pharmacy Consult (Consult Rx Perform Med Rec) 1 each MISCELLANE ONCE PRN PRN Reason: Consult order Sodium Chloride (0.9 % Sodium Chloride Flush 3 Ml Syringe) 3 ml IVFLUSH QSHIFT [facility] Last Admin: 11/11/22 21:12 Dose: 3 ml Documented By: JAMES Labs 11/09/22 05:30 11/09/22 05:30 Assessment and Plan (1) COPD exacerbation: Status: Acute (2) Pneumonia: Status: Acute Plan 77-year-old male with a PMH significant for?COPD on 2L home O2 and PAD s/p stenting who presents to the ED with?fever, chills, and diaphoresis since this morning. Patient with chronic SOB and increased cough. CTA concerning for pneumonia versus neoplasm. Pt will be admitted to the hospital for acute hypoxic respiratory failure in the setting of COPD exacerbation likely secondary to pneumonia. Acute hypoxic respiratory failure d/t COPD exacerbation likely due to pneumonia, and mucus plugs--improving -continue Bronchodilators, change to oral Prednisone 11/12, cough meds, flutter valve Abnormal CTA of chest, endobronchial filling defect right lower lobe medial basal segment, suggestive of impacted mucus vs neoplasm Left lung base subpleural 31 x 9 mm opacity, atelectasis versus pneumonia versus neoplasm-- Dr. Hanna to assess for bronchoscopy and washing of mucus plugs CAP, Ceftriaxone +Azithro 11/09, treat for 7 days ending 11/15 Abdominal pain, CT show infrarenal AAA 4 centimeters, vascular surgery recommends no intervention at this time, will do surveillance on outpatient basis PAD Continue aspirin, Plavix acute Lactic acidosis Likely secondary to hypoxia, not sepsis Pt received IVF in the ED need for inpt: copd exacerbation with acute hypoxic resp failure, probably home tomorrow Time Spent With Patient Time: Total time managing care of this patient today ____ minutes. Quality Stroke Does the patient have a stroke diagnosis?: No VTE Prior VTE?: No VTE Risk Level:: Medical - moderate - high VTE Device Contraindication: Treatment Not Indicated VTE Drug Contraindication: N/A - Med Ordered
[2022-11-12] MEDS: Albuterol/Iprat 2.5/0.5MG 3 ML AMPUL.NEB INHALE ×4 (08:30→19:32)
[2022-11-12] MEDS: Fluticasone/Umeclidinium/Vilanterol 100/62.5/25 BLST.W.DEV 1 PUFF INHALE (08:44)
[2022-11-12] MEDS: Aspirin Enteric Coated 81 MG TABLET.DR PO (09:23)
[2022-11-12] MEDS: Clopidogrel Bisulfate 75 MG TABLET PO (09:23)
[2022-11-12] MEDS: 0.9 % Sodium Chloride Flush 3 ML SYRINGE IVFLUSH ×3 (09:23→19:39)
[2022-11-12] MEDS: Docusate Sodium 100 MG CAPSULE PO ×2 (09:23→19:39)
[2022-11-12] MEDS: cefTRIAXone sodium 1 GM in 0.9 % Sodium Chloride 50 ML IV (12:27)
--- NOTE | 2022-11-12 15:45 | MHC.CM.PN ---
per rounds no date of dc at [facility] time dc plan remains rehab
--- NOTE | 2022-11-12 15:48 | MHC.CM.PN ---
per rounds no dc date at this time plan remanin s home
[2022-11-12] MEDS: Azithromycin 500 MG in 0.9 % Sodium Chloride 250 ML 125 MG IV (16:29)
[2022-11-12] MEDS: Enoxaparin Sodium 40 MG/0.4 ML SYRINGE SUBCUT (16:29)
[2022-11-13] MEDS: Acetaminophen 325 MG TABLET 650 MG PO ×2 (00:50→22:46)
[2022-11-13] MEDS: guaiFENesin 100 MG/5 ML LIQUID PO ×2 (00:51→08:36)
[2022-11-13 06:52] VITALS: BP 150/82; PULSE 78; RESP 18; TEMP 36.6; O2SAT 94
[2022-11-13] MEDS: Fluticasone/Umeclidinium/Vilanterol 100/62.5/25 BLST.W.DEV 1 PUFF INHALE (08:17)
[2022-11-13] MEDS: Albuterol/Iprat 2.5/0.5MG 3 ML AMPUL.NEB INHALE ×3 (08:17→20:31)
[2022-11-13 08:18] VITALS: PULSE 80; RESP 18; O2SAT 94
[2022-11-13] MEDS: Docusate Sodium 100 MG CAPSULE PO ×2 (08:25→19:54)
[2022-11-13] MEDS: 0.9 % Sodium Chloride Flush 3 ML SYRINGE IVFLUSH ×2 (08:25→19:57)
[2022-11-13] MEDS: Clopidogrel Bisulfate 75 MG TABLET PO (08:25)
[2022-11-13] MEDS: Aspirin Enteric Coated 81 MG TABLET.DR PO (08:25)
--- NOTE | 2022-11-13 09:39 | PM.PNPUL ---
Subjective Subjective Date of Service: 11/13/22 Interval history: The patient was seen on exam. Having hard time with his chest congestion. Currently on ceftriaxone azithromycin. He does have an Acapella valve and incentive spirometer I did emphasize any use it to help him expectorate the sputum. I did review the CT scan with appears to be some degree of mucus plugging on the right lower lobe area current he also has extensive emphysema and significant air trapping swelling type of anesthesia from will be high risk. Therefore it is prudent to try to have him clear the secretions on his own and only if he has a hard time with that and he is not able to expectorate or improved the findings on the CT scan then the bronchoscopy may be warranted. He is on his baseline 2 L. Will try to optimize his antibiotic regimen I reviewed his imaging studies at this time to address his status. Objective Data Labs 11/09/22 05:30 11/09/22 05:30 Microbiology Microbiology Results: Microbiology 11/08/22 12:00 Blood - Venous Blood Culture - Preliminary No growth after 48 hours. 11/08/22 12:00 Blood - Venous Blood Culture - Preliminary No growth after 48 hours. Review of Systems Review of Systems Yes all other systems are reviewed and are negative Eyes: Reports no additional eye complaints Reports system reviewed and no additional complaints, except as documented Cardiovascular: Denies chest pain, Denies irregular heart rhythm, Denies leg edema, Reports dyspnea and Reports dyspnea on exertion Respiratory: Reports as per HPI, Reports chest congestion, Reports cough, Denies hemoptysis, Denies pain on inspiration, Denies pain with cough, Reports dyspnea and Reports dyspnea on exertion Gastrointestinal: Reports abdominal pain and Reports nausea Genitourinary: Reports urinary frequency Musculoskeletal: Reports no additional musculoskeletal complaints Skin/Breast: Reports system reviewed and no additional complaints, except as docu Reports system reviewed and no additional complaints, except as documented Psychiatric: Reports no additional psychiatric complaints Physical Exam Vital Signs: Vital Signs: Last Vital Signs Temp 97.8 F 11/13/22 06:52 Pulse 80 11/13/22 08:18 Resp 18 11/13/22 08:18 BP 150/82 H 11/13/22 06:52 Pulse Ox 94 11/13/22 06:52 O2 Del Method Nasal Cannula 11/13/22 06:52 O2 Flow Rate 2 11/13/22 06:52 Oxygen Flow Rate 2 11/08/22 12:40 BMI result Body Mass Index 23.7 Const: Other: General: AO X 3, no acute distress Resp: No wheeze, +rhonchi, no respi distress CVS: S1,S2,RRR GI: +BS, NT, no distention Skin: No rash Neuro: motor grossly intact Psych: appropriate affect Procedures Date of Service Date of Service: 11/13/22 Assessment and Plan Assessment and plan (1) Mucus plugging of bronchi: Status: Acute (2) COPD exacerbation: Status: Acute (3) Pneumonia: Status: Acute (4) Emphysema lung: Status: Acute Plan CPT with aerobika and ISS change Abx regimen to cover pseudomonas/staph repeat CXR continue oxygen Holding off on a bronchoscopy, would be high risk with his degree of emphysema and COPD Should f/u with his outpt Sales Service Representative 11/21/2022 and will need additional imaging Time Spent With Patient Time: Total time managing care of this patient today ____ minutes. Progress Note: Quality Stroke Does the patient have a stroke diagnosis?: No
[2022-11-13 09:47] LABS: Creatinine Clr Calc Pharmacy 67.9; Estimated Glomerular Filt Rate > 60
[2022-11-13] MEDS: cefEPime HCl 2 GM in 0.9 % Sodium Chloride 50 ML IV ×2 (10:48→18:11)
--- NOTE | 2022-11-13 10:51 | P.PNIM_ITS ---
Subjective Subjective Date of Service: 11/13/22 Interval History: Seen and evaluated this morning still congested with thick mucus and dyspneic w ambulation on O2 supplement no fever or chills Review of Systems Review of Systems: Yes all other systems are reviewed and are negative Physical Exam Vital Signs: Vital Signs: Last Vital Signs Temp 97.8 F 11/13/22 06:52 Pulse 80 11/13/22 08:18 Resp 18 11/13/22 08:18 BP 150/82 H 11/13/22 06:52 Pulse Ox 94 11/13/22 06:52 O2 Del Method Nasal Cannula 11/13/22 06:52 O2 Flow Rate 2 11/13/22 06:52 Oxygen Flow Rate 2 11/08/22 12:40 BMI result Body Mass Index 23.7 Const: Other: Constitutional : Awake, interactive, not in distress Neck : Normal inspection, Supple Cardiovascular : RRR, no JVP, no lower extremity edema Respiratory : decreased bilateral air entry, expiratory wheezes , no crackles Gastrointestinal: soft, lax, Normal bowel sounds, Non tender Skin : Warm, Dry Neurological : Alert & oriented x3, No focal deficit Objective Data Active Medications Acetaminophen (Acetaminophen 325 Mg Tablet) 650 mg PO Q6H PRN PRN Reason: Pain, Mild (Pain Scale 1-3) Last Admin: 11/13/22 00:50 Dose: 650 mg Documented By: JAMES Albuterol Sulfate (Albuterol Sulfate 90 Mcg 8 Gm Inhaler) 2 puff INHALE Q6H PRN PRN Reason: Shortness Of Breath Or Wheezing Albuterol/Ipratropium (Albuterol/Iprat 2.5/0.5mg 3 Ml Ampul.Neb) 3 ml INHALE RQ4H WHILE AWAKE [facility] Last Admin: 11/13/22 08:17 Dose: 3 ml Documented By: KESHAWN Aspirin (Aspirin Enteric Coated 81 Mg Tablet.Dr) 81 mg PO DAILY [facility] Last Admin: 11/13/22 08:25 Dose: 81 mg Documented By: LOIS Benzonatate (Benzonatate 100 Mg Capsule) 100 mg PO TID PRN PRN Reason: Cough Last Admin: 11/11/22 09:29 Dose: 100 mg Documented By: ANURADHA Clopidogrel Bisulfate (Clopidogrel Bisulfate 75 Mg Tablet) 75 mg PO DAILY [facility] Last Admin: 11/13/22 08:25 Dose: 75 mg Documented By: LOIS Docusate Sodium (Docusate Sodium 100 Mg Capsule) 100 mg PO DAILY PRN PRN Reason: Constipation Docusate Sodium (Docusate Sodium 100 Mg Capsule) 100 mg PO BID [facility] Last Admin: 11/13/22 08:25 Dose: 100 mg Documented By: LOIS Enoxaparin Sodium (Enoxaparin Sodium 40 Mg/0.4 Ml Syringe) 40 mg SUBCUT Q24H [facility] Last Admin: 11/12/22 16:29 Dose: 40 mg Documented By: COTEMA Fluticasone/Umeclidinium/Vilanterol (Fluticasone/Umeclidinium/Vilanterol 100/62.5/25 Blst.W.Dev) 1 puff INHALE RDAILY [facility] Last Admin: 11/13/22 08:17 Dose: 1 puff Documented By: KESHAWN Guaifenesin (Guaifenesin 100 Mg/5 Ml Liquid) 5 ml PO Q6H PRN PRN Reason: Cough Last Admin: 11/13/22 08:36 Dose: 5 ml Documented By: LOIS Azithromycin 500 mg/ Sodium (Chloride) 250 mls @ 125 mls/hr IV Q24H [facility] Last Infusion: 11/12/22 19:34 Dose: 0 mls/hr Documented By: JAMES Cefepime HCl 2 gm/ Sodium (Chloride) 50 mls @ 100 mls/hr IV Q8H [facility] Last Admin: 11/13/22 10:48 Dose: 100 mls/hr Documented By: OG Melatonin (Melatonin 3 Mg Tablet) 6 mg PO BEDTIME PRN PRN Reason: Insomnia Last Admin: 11/09/22 22:48 Dose: 6 mg Documented By: GIACOMO Ondansetron HCl (Ondansetron Hcl 4 Mg/2 Ml Vial) 4 mg IVPUSH Q8H PRN PRN Reason: Nausea and Vomiting Sodium Chloride (0.9 % Sodium Chloride Flush 3 Ml Syringe) 3 ml IVFLUSH QSHIFT [facility] Last Admin: 11/13/22 08:25 Dose: 3 ml Documented By: LOIS Labs 11/09/22 05:30 11/13/22 08:55 Labs: Laboratory Results - last 24 hr 11/13/22 08:55 Estim Creat Clear Calc 67.9 Estimated GFR > 60 Assessment and Plan (1) Mucus plugging of bronchi: Status: Acute (2) COPD exacerbation: Status: Acute (3) Pneumonia: Status: Acute (4) Emphysema lung: Status: Acute (5) Acute respiratory failure with hypoxia: Status: Acute Plan 77-year-old male with a PMH significant for?COPD on 2L home O2 and PAD s/p stenting who presents to the ED with?fever, chills, and diaphoresis since this morning. Patient with chronic SOB and increased cough. CTA concerning for pneumonia versus neoplasm. Pt will be admitted to the hospital for acute hypoxic respiratory failure in the setting of COPD exacerbation likely secondary to pneumonia. Acute hypoxic respiratory failure d/t COPD exacerbation, pneumonia, and mucus plugs improving slowly Repeat CXR today continue Bronchodilators, change to oral Prednisone 11/12 cough meds, flutter valve Abnormal CTA of chest endobronchial filling defect right lower lobe medial basal segment, suggestive o f impacted mucus vs neoplasm Left lung base subpleural 31 x 9 mm opacity, atelectasis versus pneumonia versus neoplasm-- Dr. Hanna rec outpatient follow up and hold on Bronchoscopy while in exacerbation this time CAP Change Abx based on Pulm rec to Antipseudomonal coverage To do Azithromycin and Cefepime for now Abdominal pain CT show infrarenal AAA 4 centimeters vascular surgery recommends no intervention at this time, will do surveillance on outpatient basis PAD Continue aspirin, Plavix acute Lactic acidosis Likely secondary to hypoxia, not sepsis Pt received IVF in the ED need for inpt: copd exacerbation with acute hypoxic resp failure, Time Spent With Patient Time: Total time managing care of this patient today ____ minutes. Quality Stroke Does the patient have a stroke diagnosis?: No VTE Prior VTE?: No VTE Risk Level:: Medical - moderate - high VTE Device Contraindication: Treatment Not Indicated VTE Drug Contraindication: N/A - Med Ordered
[2022-11-13 11:26] VITALS: PULSE 84; RESP 18; O2SAT 95
[2022-11-13] MEDS: predniSONE 20 MG TABLET 40 MG PO (11:38)
[2022-11-13] MEDS: Omeprazole 20 MG CAPSULE.DR PO ×2 (11:38→20:10)
[2022-11-13] MEDS: Azithromycin 500 MG in 0.9 % Sodium Chloride 250 ML 125 MG IV (14:07)
[2022-11-13] MEDS: Enoxaparin Sodium 40 MG/0.4 ML SYRINGE SUBCUT (14:07)
[2022-11-13 15:15] VITALS: BP 131/71; PULSE 94; RESP 18; TEMP 36.3; O2SAT 95
[2022-11-13 20:00] VITALS: BP 139/89; PULSE 91; RESP 17; TEMP 36.2; O2SAT 92
[2022-11-13 20:31] VITALS: PULSE 89; RESP 20; O2SAT 96
[2022-11-13] MEDS: Benzonatate 100 MG CAPSULE PO (22:46)
[2022-11-13] MEDS: Melatonin 3 MG TABLET 6 MG PO (22:47)
[2022-11-14] MEDS: cefEPime HCl 2 GM in 0.9 % Sodium Chloride 50 ML IV ×2 (03:09→10:28)
[2022-11-14 03:31] VITALS: BP 137/78; TEMP 36.2; O2SAT 95
[2022-11-14 06:49] VITALS: BP 137/60; PULSE 74; RESP 16; TEMP 36; O2SAT 96
[2022-11-14] MEDS: Fluticasone/Umeclidinium/Vilanterol 100/62.5/25 BLST.W.DEV 1 PUFF INHALE (07:51)
[2022-11-14] MEDS: Albuterol/Iprat 2.5/0.5MG 3 ML AMPUL.NEB INHALE ×2 (07:51→11:39)
[2022-11-14 07:53] VITALS: PULSE 75; RESP 18; O2SAT 96
[2022-11-14] MEDS: Aspirin Enteric Coated 81 MG TABLET.DR PO (08:17)
[2022-11-14] MEDS: Omeprazole 20 MG CAPSULE.DR PO (08:17)
[2022-11-14] MEDS: Docusate Sodium 100 MG CAPSULE PO (08:17)
[2022-11-14] MEDS: predniSONE 20 MG TABLET 40 MG PO (08:17)
[2022-11-14] MEDS: Clopidogrel Bisulfate 75 MG TABLET PO (08:17)
[2022-11-14] MEDS: 0.9 % Sodium Chloride Flush 3 ML SYRINGE IVFLUSH (08:19)
[2022-11-14 11:41] VITALS: PULSE 76; RESP 18; O2SAT 93
--- NOTE | 2022-11-14 11:44 | P.DS_ITS ---
DS: Providers Provider Date of Service: 11/14/22 Date of admission: 11/08/22 14:43 Primary care physician: Go Zamora MD Consults: 11/08/22 17:07 Consult to Vascular Surgery Routine Consulting Provider: [facility] [place] V[facility] Services Reason for consultation: Infrarenal AAA 4.2cm 11/10/22 08:07 Consult to Pulmonology Routine Consulting Provider: [facility] [place] Pulmonology Services Reason for consultation: lung mass Has provider been notified: No DS: Diagnosis Discharge Diagnosis (1) Mucus plugging of bronchi: Status: Acute (2) COPD exacerbation: Status: Acute (3) Pneumonia: Status: Acute (4) Emphysema lung: Status: Acute (5) Acute respiratory failure with hypoxia: Status: Acute (6) AAA (abdominal aortic aneurysm) without rupture: Status: Acute DS: Summary Hospital Course Hospital Course: Admission note HPI Pt is a 77-year-old male with a PMH significant for?COPD on 2L home O2 and PAD s/p stenting who presents to the ED with?fever, chills, and diaphoresis since this morning.? Patient states that when he woke up this morning to use the bathroom, upon returning to bed he suddenly felt like he was sweating and lacked strength to move.? Patient stand that he had a bad headache and pain in his stomach.? Pain is central, crampy, and sharp in nature, says that this has been occurring intermittently for the past couple of weeks.? Patient states he has chronic shortness of breath and increasing cough.? Patient is on home supplemental oxygen, 2 L at rest and 4 L with activity/ambulation.? Patient's associate brand manager recently started him azithromycin 500 mg p.o. every M//.? Patient also experienced some nausea and vomiting while in the ED earlier today.? Patient has a 40 year pack history of smoking, though quit smoking 7 years ago.? Denies any recent unintended weight loss.? No chest pain/pressure, palpitations.? Denies lower leg edema.? No calf pain. In the ED pt was tachypneic up to 24, satting at 90% 2.5 L. Labs were significant for lactic acid of 2.7, otherwise unremarkable.? Stable H&H.? Electrolytes WNL.? Renal and hepatic function WNL.? Troponin negative. CXR showed prominent tubular opacity extending from right hilum towards the periphery of the right mid lung with peripheral atelectasis.? Also found nodular opacity in the right suprahilar region extending further right middle lobe.? CTA found no evidence of central pulmonary embolus, aortic aneurysm or dissection, or pneumothorax.? Did find severe emphysema with mosaic attenuation and areas of air trapping. Also ndobronchial filling deficit in right lower lobe with surrounding peribronchial thickening that may reflect impacted mucus or possibly neoplasm; patchy ground-glass opacities in the right midlung zone suggestive air trapping with mosaic attenuation, atelectasis, or pneumonitis; left lung base subpleural 31 x 9 mm opacity suggestive of atelectasis, pneumonia, or neoplasm.? CT of head found no acute intracranial abnormality but showed chronic lacunar infarct in the left basal ganglia and mild chronic microangiopathic changes.? EKG demonstrated sinus rhythm with occasional PVCs and no evidence of ST elevations or depressions. Pt was treated with acetaminophen, steroids, DuoNebs, ceftriaxone, and IVF. Pt will be admitted to the hospital for acute hypoxic respiratory failure in the setting of COPD exacerbation likely secondary to pneumonia. Hospital course Acute hypoxic respiratory failure d/t? COPD exacerbation, pneumonia, and mucus plugs. Treated with IV antibiotics, Nebulizers, Steroids, O2 supplement, cough meds , and chest physiotherapy as the patient breathing improved gradually. Repeated CXR showed stable disease as he was evaluated by Fire Prevention Engineer given Abnormal CTA? of chest with endobronchial filling defect right lower lobe medial basal segment, suggestive of impacted mucus vs neoplasm and Left lung base subpleural 31 x 9 mm opacity, atelectasis versus pneumonia versus neoplasm-- Dr. Hanna rec outpatient follow up and hold on Bronchoscopy while in exacerbation this time meanwhile covered possible Pseudomonas with Cefepime inpatient and Levaquin at time of discharge for total of 7 days. Hold home dose Azithromycin to minimize the risk of QTc prolongation. Abdominal CT show infrarenal AAA 4 centimeters. Consulted vascular surgery who recommended no intervention at this time,and to do surveillance on outpatient basis. Continue Levaquin for 5 more day Continue Prednisone therapy Hold Azithromycin for 1 week Follow with associate brand manager as outpatient for possible Bronchoscopy To follow with dr Suero as outpatient for monitoring dilated Aorta Time Spent with Patient Time attestation: Total time managing care of this patient today ____ minutes. Discharge coordination time: Greater than 30 minutes Quality: Safe Use of Opioids Does Pt have an Active Cancer Diagnosis on the Problem List?: No Quality: Stroke Does the patient have a stroke diagnosis?: No Physical Exam Vital Signs: Vital Signs: Last Vital Signs Temp 96.8 F 11/14/22 06:49 Pulse 76 11/14/22 11:41 Resp 18 11/14/22 11:41 BP 137/60 11/14/22 06:49 Pulse Ox 96 11/14/22 06:49 O2 Del Method Nasal Cannula 11/14/22 06:49 O2 Flow Rate 2 11/14/22 06:49 Oxygen Flow Rate 2 11/08/22 12:40 BMI result Body Mass Index 23.7 Const: Other: Constitutional : Awake, interactive, not in distress Neck : Normal inspection, Supple Cardiovascular : RRR, no JVP, no lower extremity edema Respiratory : fair bilateral air entry, no significant wheezes , no crackles , on O2 supplement Gastrointestinal: soft, lax, Normal bowel sounds, Non tender Skin : Warm, Dry Neurological : Alert & oriented x3, No focal deficit DS: Data Imaging CT scan - abdomen: Radiologist's impression: ITS Impressions Chest X-Ray 11/08/22 08:12 IMPRESSION: 1. Prominent tubular opacity extending from the right hilum towards the periphery of the right mid lung zones with peripheral atelectasis. This would better assessed by pulmonary CT angiography. 2. Nodular opacity in the right suprahilar region extending towards the right middle lobe, also better assessed by contrast-enhanced CT. 3. Findings discussed with DRE Prescott on 11/08/2022 at 8:[address] 11/08/22 09:56 IMPRESSION: No acute intracranial abnormality. Chronic lacunar infarct in the left basal ganglia. Mild chronic microangiopathic changes. Chest CTA 11/08/22 10:01 IMPRESSION: 1. No evidence of central pulmonary embolus, aortic aneurysm or dissection or pneumothorax. 2. Severe emphysema with mosaic attenuation and areas of air trapping, greater in the mid and upper lung zones. 3. Endobronchial filling defect in the right lower lobe medial basal segment, with surrounding peribronchial thickening. This may reflect impacted mucus, possibly or neoplasm. 4. Patchy groundglass opacities in the right midlung zone, either on the basis of air trapping with mosaic attenuation; atelectasis; or pneumonitis. 5. Left lung base subpleural 31 x 9 mm opacity, with differential considerations including atelectasis, pneumonia or neoplasm. Follow-up is recommended to confirm clearing. 6. Cholelithiasis. The findings were discussed with Emma Umana in the [facility] emergency department on 11/08/2022 at 10:30 AM Abdomen/Pelvis CT 11/08/22 15:01 IMPRESSION: 1. Infrarenal abdominal aortic aneurysm measuring 4.2 cm in maximum diameter. Vascular consultation is recommended, as is follow-up CT in 12 months. 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 2. No acute findings in the abdomen or pelvis. 3. Cholelithiasis. 4. Hepatic and bilateral renal cysts, for which no specific follow-up is recommended.. Fleischner guidelines were followed. Chest X-Ray 11/13/22 11:55 IMPRESSION: No acute cardiopulmonary process. Chronic appearing scarring/atelectasis with similar distribution and severity. Discharge Plan Discharge Anticipated Discharge Date/Time: 11/14/22 11:35 Patient Disposition: Home Health Service Discharge Diagnosis: COPD exacerbation Pneumonia Mucus plug Referrals: Go Zamora MD [Primary Care Provider] - 1 Week Discharge Medications: New levofloxacin 500 mg tablet 500 mg PO DAILY Qty: 5 0RF prednisone 20 mg tablet 40 mg PO DAILY Qty: 8 0RF guaifenesin [Mucinex] 600 mg tablet extended release 12hr 600 mg PO Q12H Qty: 20 0RF (DME) nebulizers Misc See Rx Instructions .Route Qty: 1 0RF Rx Instructions: As directed Continued clopidogrel 75 mg tablet 75 mg PO DAILY albuterol sulfate [Ventolin HFA] 90 mcg/actuation HFA aerosol inhaler 2 puff inhalation Q6H PRN (Reason: Shortness Of Breath Or Wheezing) Trelegy Ellipta 100-62.5-25 mcg blister with device 1 ea inhalation DAILY aspirin 81 mg Tablet,Delayed Release (Dr/Ec) 81 mg PO DAILY Held azithromycin 500 mg tablet 500 mg PO MOWEFR@0900 Hold Instructions: Resume on 11/21/22. Discharge Orders: Discharge Order (Routine); Ordered 11/14/22 Ordered By: Buck Vogel Diet: Advance to usual diet Activity on Discharge: As tolerated Stand Alone Forms: Patient Portal Discharge page Care Plan Goals: Read below Health Concerns: Read below Plan of Treatment: Read below Assessment: Admitted for COPD exacerbation and pneumonia with evidence of mucus plug. Treated with IV antibiotics, nebulizers and oxygen supplement with good response over the course of hospital stay. Continue Levaquin for 5 more day Continue Prednisone therapy Hold Azithromycin for 1 week Follow with associate brand manager as outpatient
--- NOTE | 2022-11-14 11:58 | W.MHC.F2F ---
Service Date Service Date: 11/14/22 Encounter Date of encounter: 11/14/22 Reasons for Services Signs and symptoms assessed: COPD on new nebulizer Increase O2 requirement Reason for long term: medication management, teach disease management and other (Wean O2 down as tolerated ) Reason for physical therapy: home safety and mobility and therapeutic exercises Homebound: Leaving the home is medically contraindicated at this time without the asist of a device and/or another person due th the listed conditions above and below. Reason homebound: shortness of breath with minimal effort Certification: Based on the above findings, I certify that this patient is confined to the home and needs intermittent long term care, physical therapy and/or speech therapy, or continues to need occupational therapy. The patient is under my care, and I have initiated the establishment of the plan of care. The patient will be followed by a physician who will periodically review the plan of care. Time Spent With Patient Time: Total time managing care of this patient today ____ minutes.
--- NOTE | 2022-11-14 12:41 | P.CDIM_ITS ---
PROVIDER RESPONSE TEXT: To clarify, the appropriate diagnosis supported by the clinical indicators: Acute on chronic hypoxic respiratory failure QUERY TEXT: PHYSICIAN'S DOCUMENTATION REQUEST Date of Query: 11/14/2022 07:37 AM EDT Patient Name: Richardson Dao Admit Date: 11/08/2022 Dear Buck Vogel, A review of the medical record indicates additional documentation may be needed. Please review below and update the documentation accordingly. Clinical Indicators: PMH: COPD on 2 liters home O2 RR 24 Pulse ox 90 placed on 2.5 liters NC If possible, please further clarify the type and acuity of respiratory failure: Acute on chronic hypoxic respiratory failure Acute hypoxic respiratory failure Other (explain)Clinically unable to determine (explain)Thank you, Claudtete Clarke, CCS, CDIS Use of terms such as suspected, likely, concern for, or probable (associated with a specific diagnosi s that is being evaluated, monitored, or treated as if it exists) are acceptable and can be coded in the inpatient se tting, when documented at the time of discharge. Please use your independent medical judgment in providing your response. THIS QUERY IS PART OF THE PERMANENT MEDICAL RECORD
== END 2022-11-14 13:57 | disposition home health service (06) | DRG 193 ==
LOC: HO.ED 13:08 → HO.EDOVER 14:52 → HO.S3 18:02
PROVIDERS: Physician Assistant Medical; Admitting Provider Student in an Organized Health Care Education/Training Program; Emergency Provider Emergency Medicine; PCP Internal Medicine; Visit Provider Student in an Organized Health Care Education/Training Program
DX: J18.9 Pneumonia, unspecified organism (principal); J96.21 Acute and chronic respiratory failure with hypoxia; E87.21 Acute metabolic acidosis; J98.11 Atelectasis; J43.9 Emphysema, unspecified; I73.9 Peripheral vascular disease, unspecified; Z99.81 Dependence on supplemental oxygen; I71.43 Infrarenal abdominal aortic aneurysm, without rupture; Z79.02 Long term (current) use of antithrombotics/antiplatelets; Z79.82 Long term (current) use of aspirin; Z79.899 Other long term (current) drug therapy
CPT/HCPCS: 36415; 70450; 71045; 71046; 71275; 74176; 80048; 80053; 82565; 82803; 83605; 83735; 84484; 85025; 85027; 85610; 85730; 87040; 87635; 93005; 94640; 99221; 99285; J0456; J0692; J0696; J1650; J2920; J2930; Q9967

== ENCOUNTER → 2022-11-08 14:43 | Outpatient (BNV) | payer MEDICARE, OTHER, SELFPAY | PROVIDERS: Admitting Provider Student in an Organized Health Care Education/Training Program; Emergency Provider Emergency Medicine; PCP Internal Medicine; Visit Provider Student in an Organized Health Care Education/Training Program | DX: J44.1 Chronic obstructive pulmonary disease with (acute) exacerbation (principal); J18.9 Pneumonia, unspecified organism | CPT/HCPCS: 99223; 99232; 99233; 99239; G0180 ==

== ENCOUNTER → 2022-11-08 14:43 | Outpatient (BNV) | payer MEDICARE, OTHER, SELFPAY | PROVIDERS: Admitting Provider Student in an Organized Health Care Education/Training Program; Emergency Provider Emergency Medicine; PCP Internal Medicine; Visit Provider Internal Medicine | DX: J44.1 Chronic obstructive pulmonary disease with (acute) exacerbation (principal); T17.500A Unspecified foreign body in bronchus causing asphyxiation, initial encounter; J18.9 Pneumonia, unspecified organism | CPT/HCPCS: 99223; 99232 ==

== ENCOUNTER → 2022-11-08 14:43 | Outpatient (BNV) | payer MEDICARE, OTHER, SELFPAY | PROVIDERS: Admitting Provider Student in an Organized Health Care Education/Training Program; Emergency Provider Emergency Medicine; PCP Internal Medicine; Visit Provider Surgery Vascular Surgery | DX: I71.40 Abdominal aortic aneurysm, without rupture, unspecified (principal); I73.9 Peripheral vascular disease, unspecified | CPT/HCPCS: 99222 ==

== ENCOUNTER 2022-11-22 19:03 | Emergency (ER) | payer MEDICARE, SELFPAY ==
--- NOTE | 2022-11-22 | ECG_ITS ---
Test Reason : ABD PAIN Blood Pressure : / mmHG Vent. Rate : 100 BPM Atrial Rate : 100 BPM P-R Int : 178 ms QRS Dur : 066 ms QT Int : 334 ms P-R-T Axes : 061 -02 046 degrees QTc Int : 430 ms Normal sinus rhythm Nonspecific ST and T wave abnormality Abnormal ECG When compared with ECG of 08-NOV-2022 08:30, Premature ventricular complexes are no longer Present Nonspecific T wave abnormality now evident in Lateral leads Referred By: Faby Kumar Electronically Signed By:MARIO ENRIQUEZ
--- NOTE | ~2022-11-22 | CT_ITS ---
EXAMINATION: CT ABDOMEN AND PELVIS WITH CONTRAST CLINICAL INFORMATION: Periumbilical pain, history of abdominal aortic aneurysm COMPARISON: 11/08/2022 TECHNIQUE: Multidetector volumetric images were obtained from the superior aspect of the liver through the pubic symphysis following administration 85 mL of Omnipaque 350 intravenous contrast. Sagittal and coronal reformatted images were obtained on the technologist's workstation. Oral contrast: No This CT examination was performed using dose optimization techniques as appropriate, variously including the following: *Automated exposure control *Adjustment of mA and/or kV according to patient size (this includes techniques or standardized protocols for targeted exams where dose is matched to indication/reason for exam; i.e. extremities or head) *Use of iterative reconstruction technique DLP: 627 mGy-cm FINDINGS: LUNG BASES: There is significant emphysematous changes in the visualized lung bases. There is diffuse bronchial wall thickening with some areas of mucous plugging. Left base atelectasis versus infiltrate LIVER, GALLBLADDER, AND BILIARY TREE: The liver is normal in size and contour. Multiple hepatic cysts are visualized. There is no intrahepatic biliary ductal dilatation. There is cholelithiasis. No gallbladder wall thickening. PANCREAS: Unremarkable. SPLEEN: Unremarkable. ADRENAL GLANDS: Unremarkable. KIDNEYS AND URETERS: No hydronephrosis or renal calculi. There are bilateral simple fluid attenuation cyst that do not require imaging follow-up. BLADDER: Unremarkable. GASTROINTESTINAL TRACT: Small hiatal hernia. There is no bowel obstruction. The appendix is normal. ABDOMINAL WALL: No significant hernia is appreciated. LYMPH NODES: Normal. VASCULAR: Stable aneurysmal dilatation of the infrarenal abdominal aortic aneurysm measuring 4.5 x 4.0 cm. Atherosclerotic calcification throughout the iliac vessels. PELVIC VISCERA: The prostate and seminal vesicles are unremarkable. OSSEOUS STRUCTURES: Degenerative disc disease in the lower lumbar spine. CT/CT abdomen pelvis w IV con IMPRESSION: 1. No acute abnormality in the abdomen or pelvis. 2. Stable infrarenal abdominal aortic aneurysm measuring 4.5 cm. Recommend followup every 6 months and vascular specialist consultation. Reference: J Am Ricarda Radiol 2013; 10 (10): 789-794. 3. Cholelithiasis. 4. Significant emphysematous changes in the visualized lung bases. There is diffuse bronchial wall thickening with some areas of mucous plugging. Left base atelectasis versus infiltrate. Fleischner guidelines were followed.
[2022-11-22 19:05] VITALS: BP 131/93; BP 140/82; PULSE 105; PULSE 99; RESP 21; TEMP 36.7; O2SAT 95; BMI 24.1
[2022-11-22 19:13] VITALS: BP 140/82; PULSE 107; RESP 17; TEMP 36.7; O2SAT 95
[2022-11-22 19:24] VITALS: RESP 22
--- NOTE | 2022-11-22 19:26 | PC.NURSE ---
Pt comes in from home, abdominal pain x a few hours. Pt was seen by his [facility]NA nurse who palpated his abdomen and subsequently made his pain worse. Patient has previous hx of abdominal pain
--- OUTSIDE RECORDS SUMMARY | 2022-11-22 19:36 | XMS_ITS | Continuity of Care Document ---
Author Name Unknown Organization [facility] ter Address [address] [place] [id number]- Care Team Providers Care Process Safety Engineer Name Role Phone Sera LUNA, Go Chavez Primary Care Physician Encounter [facility] [place] Date(s): 04/29/19 - 08/06/[address] [address]- [facility] Attending Physician: Beny Cook MD Admitting Physician: Beny Cook MD Referring Physician: Beny Cook MD Allergies, Adverse Reactions, Alerts Substance Reaction Severity Status NKA Active Immunizations Not Given Vaccine Date Status Refusal Reason pneumococcal 13-valent vaccine 1 05/16/19 Not Give n Patient Refuses pneumococcal 23-valent vaccine 2 11/28/14 Not Give n Patient Refuses 1Result Comment: already recieved PNA vax 2Result Note: states told him he had it last year Medications albuterol 0.083% inhalation solution 3 mL = 2.5 mg, Inhalation, Every 6 hours, J44.9, # 120 each, 6 Refills, Maintenance, 05/25/19 12:09:00 EST, Solution, [facility], 175, cm, 05/22/19 17:10:00 EST, Height, 71.8, kg, 05/15/19 4:27:00 EST, Dry Weight Start Date: 05/25/19 Status: Ordered Breo Ellipta 100 mcg-25 mcg/inh inhalation powder 1 puffs, Inhalation, Daily, rinse mouth and throat after use. ICD 10 code J44.9, # 1 each, 11 Refills, Maintenance, 10/15/18 10:06:00 EDT, Powder, J44.9, 1 puffs Inhalation Daily,Instr:rinse mouth and throat after use. ; ICD 10 code J44.9 Start Date: 10/15/18 Status: Ordered calcitonin 200 iu/inh nasal spray 1 sprays, Naris, Right, Every other day, # 1 each, 0 Refills, Maintenance, 07/09/19 16:47:00 EDT, Nasal [place], [facility], 175, cm, 07/09/19 15:06:00 EDT, Height, 70, kg, 07/04/19 18:30:00 EDT, Dry Weight Start Date: 07/09/19 Stop Date: 07/23/19 Status: Ordered docusate sodium 100 mg oral capsule 100 mg, 1, capsule, By Mouth, 2 times a day, Refills 0, Maintenance, 12/24/18 13:11:56 EDT Start Date: 12/24/18 Status: Ordered lidocaine 5% topical film 1 patch, Topically, Daily, Patel not place over surgery site. remove patches after 12 hours, # 14 patch, 0 Refills, Maintenance, 07/09/19 16:47:00 EDT, Patch, [facility], 1 patch Topically Daily,x14 days,Instr:Patel not place over surgery... Start Date: 07/09/19 Stop Date: 07/23/19 Status: Ordered Narcan 4 mg/0.1 mL nasal spray See Instructions, 4 mg Once, in case of emergency if you think you have taken too much oxycodone orare too sleepy to be woken up., # 2 each, 0 Refills, Soft Stop, 07/09/19 16:53:00 EDT, [facility], 175, cm, 07/09/19 15:06:00 EDT, Height... Start Date: 07/09/19 Status: Ordered pravastatin 40 mg oral tablet 1 tablet = 40 mg, By Mouth, Daily, 0 Refills, Maintenance, 12/24/18 13:14:34 EDT Start Date: 12/24/18 Status: Ordered ProAir HFA 90 mcg/inh inhalation aerosol with adapter 2, puffs, Inhalation, 4 times a day, PRN, j44.9 NO SUBSTITUTIONS, # 1 each, Refills 6, Tot. Refills6, Maintenance, 05/25/19 12:12:00 EST, Aerosol, Route to Pharmacy Electronically, NCPDP_[id number],[facility], 175, cm, 05/22/19 1... Start Date: 05/25/19 Status: Ordered sertraline 25 mg oral tablet 1 tablet = 25 mg, By Mouth, Daily, 0 Refills, Maintenance, 12/24/18 13:15:03 EDT Start Date: 12/24/18 Status: Ordered Spiriva HandiHaler 18 mcg inhalation capsule 1 capsule = 18 mcg, Inhalation, Daily, # 30 capsule, 5 Refills, Maintenance, 04/22/19 14:43:00 EST,[facility], 175, cm, 12/24/18 13:08:00 EDT, Height, 75.5, kg, 05/25/18 17:01:00 EST, Dry Weight Start Date: 04/22/19 Status: Ordered Problem List Condition Effective Dates Status Health Status Inform ant Chronic respiratory failure with hypoxia(Confirmed) Active Flank pain(Confirmed) Active Pulmonary nodule(Confirmed) Active PVD (peripheral vascular disease)(Confirmed) Active COPD, severe(Confirmed) Active History of tobacco use(Confirmed) Active Social History Social History Type Response Smoking Status Former smoker; Type: Cigarettes; Other: Quit 2014; Number of years: 40; entered on: 06/11/16 Sex
--- OUTSIDE RECORDS SUMMARY | 2022-11-22 19:36 | XMS_ITS | Continuity of Care Document ---
Author Name Unknown Organization [facility] ter Address [address] [place] [phone]- Care Team Providers Care Expanded Duty Dental Assistant Name Role Phone Sera LUNA, Go Chavez Primary Care Physician [phone] Encounter [facility] [place] [facility] R [id number] Date(s): 04/30/19 - 08/05/[address] [address]- [facility] Attending Physician: Beny Cook MD Admitting Physician: [...] 6 Refills, Maintenance, 05/25/19 12:09:00 EST, Solution, [facility], 175, cm, 05/22/19 17:10:00 EST, [...] 0 Refills, Maintenance, 07/09/19 16:47:00 EDT, Nasal [place], [facility], 175, cm, 07/09/19 15:06:00 [...] 0 Refills, Maintenance, 07/09/19 16:47:00 EDT, Patch, [facility], 1 patch Topically Daily,x14 days,Instr:Patel not place over surgery... Start Date: 07/09/19 Stop Date: 07/23/19 Status: Ordered Narcan 4 mg/0.1 mL nasal spray See Instructions, 4 mg Once, in case of emergency if you think you have taken too much oxycodone orare too sleepy to be woken up., # 2 each, 0 Refills, Soft Stop, 07/09/19 16:53:00 EDT, [facility], 175, cm, 07/09/19 15:06:00 [...] 12:12:00 EST, Aerosol, Route to Pharmacy Electronically, NCPDP_[id number],[facility], 175, cm, 05/22/19 1... Start Date: 05/25/19 Status: Ordered sertraline 25 mg oral tablet 1 tablet = 25 mg, By Mouth, Daily, 0 Refills, Maintenance, 12/24/18 13:15:03 EDT Start Date: 12/24/18 Status: Ordered Spiriva HandiHaler 18 mcg inhalation capsule 1 capsule = 18 mcg, Inhalation, Daily, # 30 capsule, 5 Refills, Maintenance, 04/22/19 14:43:00 EST,[facility], 175, cm, 12/24/18 13:08:00 EDT, [...]
--- OUTSIDE RECORDS SUMMARY | 2022-11-22 19:36 | XMS_ITS | Continuity of Care Document ---
Author Name Unknown Organization [facility] Address [address] [place] [address]- Care Team Providers Care Cipher Expert Name Role Phone Sera LUNA, Go Chavez Primary Care Physician Encounter [facility] [place] Date(s): 01/13/22 - 05/13/22 [facility] [address], [place] [address] Attending Physician: Go Zamora MD Admitting Physician: Go Zamora MD Allergies, Adverse Reactions, Alerts No Known Allergies Immunizations Given and Recorded Vaccine Date Status Refusal Reason SARS-CoV-2 (COVID-19) mRNA BNT-162b2 vac 07/30/20 Recorded SARS-CoV-2 (COVID-19) mRNA BNT-162b2 vac 07/09/20 Recorded Not Given Vaccine Date Status Refusal Reason pneumococcal 13-valent vaccine 1 05/16/19 Not Give n Patient Refuses pneumococcal 23-valent vaccine 2 11/28/14 Not Give n Patient Refuses 1Result Comment: already recieved PNA vax 2Result Note: states told him he had it last year Medications acetaminophen-codeine 300 mg-30 mg oral tablet TAKE 1 TABLET BY MOUTH 3 TIMES DAILY NEEDED FOR PAIN FOR UP TO 7 DAYS. Start Date: 09/01/21 Status: Ordered albuterol 0.083% inhalation solution 3 mL = 2.5 mg, Inhalation, Every 6 hours, J44.9, # 120 each, 6 Refills, Maintenance, 05/25/19 12:09:00 EST, Solution, [facility], 175, cm, 05/22/19 17:10:00 EST, Height, 71.8, kg, 05/15/19 4:27:00 EST, Dry Weight Start Date: 05/25/19 Status: Ordered amLODIPine 5 mg oral tablet 5 mg, 1, tablet, By Mouth, Daily, # 30 tablet, Refills 0, Tot. Refills 0, Maintenance, 09/29/21 10:40:00 EDT, Route to Pharmacy Electronically, [facility], Partial fill upon patient request if the prescription is for a schedule II opi... Start Date: 09/29/21 Status: Ordered aspirin 81 mg oral delayed release tablet 81 mg, 1, tablet, By Mouth, Daily, # 30 tablet, Refills 0, Maintenance, 09/01/21 15:09:00 EDT, Partial fill upon patient request if the prescription is for a schedule II opioid drug. Start Date: 09/01/21 Status: Ordered azithromycin 500 mg oral tablet See Instructions, TAKE ONE TABLET BY MOUTH EVERY SATURDAY, SATURDAY, AND SATURDAY, # 15 tablet, 6 Refills, [facility], 175, cm, 01/18/20 10:03:00 EDT, Height, 70.5, kg, 07/13/19 9:41:00EDT, Dry Weight Start Date: 05/16/21 Status: Ordered Breo Ellipta 100 mcg-25 mcg/inh inhalation powder 1 puffs, Inhalation, Daily, RINSE MOUTH AND THROAT AFTER USE., # 60 Unknown, 4 Refills, [facility], 30, INHALE 1 PUFF BY MOUTH ONCE DAILY. RINSE MOUTH AND THROAT AFTER USE., 175, cm,01/18/20 10:03:00 EDT, Height, 70.5, kg, 07/13/19 9... Start Date: 04/19/21 Status: Ordered clopidogrel 75 mg oral tablet 75 mg, 1, tablet, By Mouth, Daily, # 30 tablet, Refills 0, Maintenance, 09/01/21 15:09:00 EDT, Partial fill upon patient request if the prescription is for a schedule II opioid drug. Start Date: 09/01/21 Status: Ordered pantoprazole 20 mg oral delayed release tablet = 20 mg, By Mouth, Daily, # 30 tablet, 0 Refills, Maintenance, 09/29/21 10:40:00 EDT, EC Tablet, 170, cm, 09/29/21 9:18:00 EDT, Height, 66.9, kg, 09/28/21 4:57:00 EDT, Dry Weight Start Date: 09/29/21 Stop Date: 10/29/21 Status: Ordered pravastatin 40 mg oral tablet 1 tablet = 40 mg, By Mouth, Daily, 0 Refills, Maintenance, 12/24/18 13:14:34 EDT Start Date: 12/24/18 Status: Ordered ProAir HFA 90 mcg/inh inhalation aerosol with adapter 2, puffs, Inhalation, 4 times a day, PRN, j44.9 NO SUBSTITUTIONS, # 1 each, Refills 6, Tot. Refills6, Maintenance, 08/02/20 13:18:00 EDT, Aerosol, Route to Pharmacy Electronically, NCPDP_[id number],[facility], 175, cm, 01/18/20 1... Start Date: 08/02/20 Status: Ordered Spiriva HandiHaler 18 mcg inhalation capsule 1 capsule = 18 mcg, Inhalation, Daily, j44.9, # 30 capsule, 6 Refills, Maintenance, 06/02/20 17:56:00 EST, [facility], 175, cm, 01/18/20 10:03:00 EDT, Height, 70.5, kg, 07/13/19 9:41:00 EDT, Dry Weight Start Date: 06/02/20 Status: Ordered Problem List Condition Confirmation Course Effective Dates Status Health St atus Informant Chronic respiratory failure with hypoxia Confirmed Active COVID-19 Confirmed Active COVID-19 1 Confirmed 09/06/21 Active Flank pain Confirmed Active Pulmonary nodule Confirmed Active PVD (peripheral vascular disease) Confirmed Active COPD, severe Confirmed Active History of tobacco use Confirmed Active 1Problem added by Discern Expert Social History Social History Type Response Smoking Status Former smoker; Type: Cigarettes; Other: Quit 2014; Number of years: 40; entered on: 06/11/16 Sex Patient Care team information Care Team Personnel Name: Park Morse RN Position: S RN Member Role: Primary Care Nurse Name: Reena Butcher RN Position: S RN Member Role: Primary Care Nurse Name: Usha Loomis RN Position: S RN Member Role: Primary Care Nurse Name: Kayce Monroe RN Position: S RN Member Role: Primary Care Nurse Name: Micki Burdick RN Position: S RN Member Role: Primary Care Nurse Name: Margoth Perez RN Position: [facility] RN Member Role: Primary Care Nurse Name: Dennis Oliver RN Position: [facility] RN Member Role: Primary Care Nurse Name: Aicha Odonnell RN Position: [facility] RN Member Role: Primary Care Nurse Name: Madhuri Valentine RN Position: S RN Member Role: Primary Care Nurse Name: Jessy Mauro RN Position: [facility] Pulmonary Rehab Mgr Member Role: Primary Care Nurse Name: Christina Gloria RN Position: [facility] RN Member Role: Primary Care Nurse Name: Ethel Wen RN Position: [facility] PCO RN Member Role: Primary Care Nurse Name: Cole Perkins RN Position: [facility] RN Member Role: Primary Care Nurse Address: Address: [address] [place] [id number]- Name: Go Zamora MD Position: Reference Physician Member Role: PCP Address: Address: [address] [place] [address]- Name: Merlene Carbajal RN Position: [facility] OB RN Member Role: Primary Care Nurse Name: Monica Pratt RN Position: [facility] RN Member Role: Primary Care Nurse Care Team Related Persons Name: CIARA AVILA Address: [address] [place] [address] Name: MARBELLA AVILA Address: [address] [place] [address]
--- OUTSIDE RECORDS SUMMARY | 2022-11-22 19:36 | XMS_ITS | Continuity of Care Document ---
Author Name Unknown Organization [facility] Address [address] [address]- Care Team Providers Care Bakery Worker Name Role Phone Sera LUNA, Go Chavez Primary Care Physician Encounter [facility] Date(s): 12/13/20 - 01/12/21 [facility] [address] [place] [id number] Attending Physician: Nerissa Christianson Admitting Physician: AdmNerissa strange Referring Physician: Admtr, Nerissa Allergies, Adverse Reactions, Alerts Substance Reaction Severity [...] 6 Refills, Maintenance, 05/25/19 12:09:00 EST, Solution, [facility], 175, cm, 05/22/19 17:10:00 EST, Height, 71.8, kg, 05/15/19 4:27:00 EST, Dry Weight Start Date: 05/25/19 Status: Ordered azithromycin 500 mg oral tablet See Instructions, 1 tablet By Mouth Saturday, Saturday and Saturday, j44.9, # 15 tablet, 3 Refills, Maintenance, 05/13/20 16:47:00 EST, [facility], 175, cm, 01/18/20 10:03:00 EDT, Height, 70.5, kg, 07/13/19 9:41:00 EDT, Dry Weight Start Date: 05/13/20 Status: Ordered azithromycin 500 mg oral tablet See Instructions, J 444.9 1 tablet By Mouth Saturday, Saturday and Saturday, # 15 tablet, 6 Refills, Maintenance, 09/20/20 15:33:00 EDT, [facility], 175, cm, 01/18/20 10:03:00 EDT, Height, 70.5, kg, 07/13/19 9:41:00 EDT, Dry Weight Start Date: 09/20/20 Status: Ordered Breo Ellipta 100 mcg-25 mcg/inh inhalation powder 1 puffs, Inhalation, Daily, rinse mouth and throat after use. ICD 10 code J44.9, # 1 each, 6 Refills, Maintenance, 06/03/20 8:17:00 EST, Powder, [facility], J44.9, 1 puffs InhalationDaily,Instr:rinse mouth and throat after use. ;... Start Date: 06/03/20 Status: Ordered calcitonin 200 iu/inh nasal spray 1 sprays, Naris, Right, Every other day, # 1 each, 0 Refills, Maintenance, 07/09/19 16:47:00 EDT, Nasal [place], [facility], 175, cm, 07/09/19 15:06:00 [...] 0 Refills, Maintenance, 07/09/19 16:47:00 EDT, Patch, [facility], 1 patch Topically Daily,x14 days,Instr:Patel not place over surgery... Start Date: 07/09/19 Stop Date: 07/23/19 Status: Ordered Narcan 4 mg/0.1 mL nasal spray See Instructions, 4 mg Once, in case of emergency if you think you have taken too much oxycodone orare too sleepy to be woken up., # 2 each, 0 Refills, Soft Stop, 07/09/19 16:53:00 EDT, [facility], 175, cm, 07/09/19 15:06:00 [...] 13:18:00 EDT, Aerosol, Route to Pharmacy Electronically, NCPDP_[id number],[facility], 175, cm, 01/18/20 1... Start Date: 08/02/20 Status: Ordered sertraline 25 mg oral tablet 1 tablet = 25 mg, By Mouth, Daily, 0 Refills, Maintenance, 12/24/18 13:15:03 EDT Start Date: 12/24/18 Status: Ordered Spiriva HandiHaler 18 mcg inhalation capsule 1 capsule = 18 mcg, Inhalation, Daily, j44.9, # 30 capsule, 6 Refills, Maintenance, 06/02/20 17:56:00 EST, [facility], 175, cm, 01/18/20 10:03:00 EDT, Height, 70.5, kg, 07/13/19 9:41:00 EDT, Dry Weight Start Date: 06/02/20 Status: Ordered Problem List Condition Effective Dates [...]
--- OUTSIDE RECORDS SUMMARY | 2022-11-22 19:36 | XMS_ITS | Continuity of Care Document ---
Author Name Unknown Organization [facility] Address [address] [place] [id number]- Care Team Providers Care Cupola Melter Name Role Phone Sera LUNA, Go Chavez Primary Care Physician Encounter [facility] Date(s): 05/11/20 - 06/10/20 [facility] [address] [place] [id number] Allergies, Adverse Reactions, Alerts Substance Reaction Severity [...] 6 Refills, Maintenance, 05/25/19 12:09:00 EST, Solution, [facility], 175, cm, 05/22/19 17:10:00 EST, Height, 71.8, kg, 05/15/19 4:27:00 EST, Dry Weight Start Date: 05/25/19 Status: Ordered azithromycin 500 mg oral tablet See Instructions, 1 tablet By Mouth Saturday, Saturday and Saturday, j44.9, # 15 tablet, 3 Refills, Maintenance, 05/13/20 16:47:00 EST, [facility], 175, cm, 01/18/20 10:03:00 EDT, Height, 70.5, kg, 07/13/19 9:41:00 EDT, Dry Weight Start Date: 05/13/20 Status: Ordered azithromycin 500 mg oral tablet See Instructions, 1 tablet By Mouth Saturday, Saturday and Saturday, # 13 tablet, 5 Refills, Acute 11/13/20 15:11:00 EDT, 11/13/19 15:10:00 EDT, [id number], 175, cm, 07/13/19 9:41:00 EDT, Height, 70.5, kg, 07/13/19 9:41:00 EDT, Dry Weight Start Date: 11/13/19 Stop Date: 11/13/20 Status: Ordered Breo Ellipta 100 mcg-25 mcg/inh inhalation powder 1 puffs, Inhalation, Daily, rinse mouth and throat after use. ICD 10 code J44.9, # 1 each, 6 Refills, Maintenance, 06/03/20 8:17:00 EST, Powder, [facility], J44.9, 1 puffs InhalationDaily,Instr:rinse mouth and throat after use. ;... Start Date: 06/03/20 Status: Ordered calcitonin 200 iu/inh nasal spray 1 sprays, Naris, Right, Every other day, # 1 each, 0 Refills, Maintenance, 07/09/19 16:47:00 EDT, Nasal [place], [facility], 175, cm, 07/09/19 15:06:00 EDT, Height, [...] 0 Refills, Maintenance, 07/09/19 16:47:00 EDT, Patch, [facility], 1 patch Topically Daily,x14 days,Instr:Patel not place over surgery... Start Date: 07/09/19 Stop Date: 07/23/19 Status: Ordered Narcan 4 mg/0.1 mL nasal spray See Instructions, 4 mg Once, in case of emergency if you think you have taken too much oxycodone orare too sleepy to be woken up., # 2 each, 0 Refills, Soft Stop, 07/09/19 16:53:00 EDT, [facility], 175, cm, 07/09/19 [...] 12:12:00 EST, Aerosol, Route to Pharmacy Electronically, NCPDP_[id number],[facility], 175, cm, 05/22/19 1... Start Date: 05/25/19 Status: Ordered sertraline 25 mg oral tablet 1 tablet = 25 mg, By Mouth, Daily, 0 Refills, Maintenance, 12/24/18 13:15:03 EDT Start Date: 12/24/18 Status: Ordered Spiriva HandiHaler 18 mcg inhalation capsule 1 capsule = 18 mcg, Inhalation, Daily, j44.9, # 30 capsule, 6 Refills, Maintenance, 06/02/20 17:56:00 EST, [facility], 175, cm, 01/18/20 10:03:00 [...]
--- OUTSIDE RECORDS SUMMARY | 2022-11-22 19:36 | XMS_ITS | Continuity of Care Document ---
Author Name Unknown Organization [facility] ter Address [address] [place] [id number]- Care Team Providers Care Manager Intensive Care Unit Name Role Phone Sera LUNA, Go Chavez Primary Care Physician [phone] [place] [facility] [id number] Date(s): 07/06/19 - 07/09/[address] [address]- [facility] Discharge Disposition: A-D/C Home Attending Physician: Andrew Rojas MD Admitting Physician: Singh Menjivar DO Referring Physician: Not on Staff, Referring MD Allergies, Adverse Reactions, Alerts Substance Reaction Severity Status NKA Active Immunizations Not Given Vaccine Date Status Refusal Reason pneumococcal 13-valent vaccine 1 05/16/19 Not Give n Patient Refuses pneumococcal 23-valent vaccine 2 11/28/14 Not Give n Patient Refuses 1Result Comment: already recieved PNA vax 2Result Note: states told him he had it last year Medications acetaminophen 325 mg oral tablet 650 mg, 2, tablet, By Mouth, Every 6 hours, for 10 days, Do not take with Tylenol not to exceed 4000 mg/day, # 80 tablet, Refills 0, Tot. Refills 0, Acute 07/19/19 16:51:00 EDT, 07/09/19 16:51:00 EDT, Route to Pharmacy Electronically, [facility] Start Date: 07/09/19 Stop Date: 07/19/19 Status: Ordered albuterol 0.083% inhalation solution 3 mL = 2.5 mg, Inhalation, Every 6 hours, J44.9, # 120 each, 6 Refills, Maintenance, 05/25/19 12:09:00 EST, Solution, [facility], 175, cm, 05/22/19 17:10:00 EST, [...] 0 Refills, Maintenance, 07/09/19 16:47:00 EDT, Nasal [place], [facility], 175, cm, 07/09/19 15:06:00 [...] 0 Refills, Maintenance, 07/09/19 16:47:00 EDT, Patch, [facility], 1 patch Topically Daily,x14 days,Instr:Patel not place over surgery... Start Date: 07/09/19 Stop Date: 07/23/19 Status: Ordered Narcan 4 mg/0.1 mL nasal spray See Instructions, 4 mg Once, in case of emergency if you think you have taken too much oxycodone orare too sleepy to be woken up., # 2 each, 0 Refills, Soft Stop, 07/09/19 16:53:00 EDT, [facility], 175, cm, 07/09/19 15:06:00 EDT, Height... Start Date: 07/09/19 Status: Ordered oxyCODONE 5 mg oral tablet 2.5 mg, 0.5, tablet, By Mouth, Every 6 hours, PRN, for 7 days, If pain is severe can take 1 whole tablet., # 10 tablet, Refills 0, Tot. Refills 0, Acute 07/16/19 16:50:00 EDT, Pain , Moderate, 07/09/19 16:50:00 EDT, Route to Pharmacy Electronically, B... Start Date: 07/09/19 Stop Date: 07/16/19 Status: Ordered pravastatin 40 mg oral tablet 1 tablet = 40 mg, By Mouth, Daily, 0 Refills, Maintenance, 12/24/18 13:14:34 EDT Start Date: 12/24/18 Status: Ordered ProAir HFA 90 mcg/inh inhalation aerosol with adapter 2, puffs, Inhalation, 4 times a day, PRN, j44.9 NO SUBSTITUTIONS, # 1 each, Refills 6, Tot. Refills6, Maintenance, 05/25/19 12:12:00 EST, Aerosol, Route to Pharmacy Electronically, [id number]_[id number],[facility], 175, cm, 05/22/19 1... Start Date: 05/25/19 Status: Ordered sertraline 25 mg oral tablet 1 tablet = 25 mg, By Mouth, Daily, 0 Refills, Maintenance, 12/24/18 13:15:03 EDT Start Date: 12/24/18 Status: Ordered Spiriva HandiHaler 18 mcg inhalation capsule 1 capsule = 18 mcg, Inhalation, Daily, # 30 capsule, 5 Refills, Maintenance, 04/22/19 14:43:00 EST,[facility], 175, cm, 12/24/18 13:08:00 EDT, Height, 75.5, kg, 05/25/18 17:01:00 EST, Dry Weight Start Date: 04/22/19 Status: Ordered Problem List Condition Effective Dates Status Health Status Inform ant Chronic respiratory failure with hypoxia(Confirmed) Active Flank pain(Confirmed) Active Pulmonary nodule(Confirmed) Active PVD (peripheral vascular disease)(Confirmed) Active COPD, severe(Confirmed) Active History of tobacco use(Confirmed) Active Results Radiology Reports * Exam Date Time Procedure Performing Provider Status 07/08/19 3:44 PM Fluoroscopy < 1 Hour Linda Arroyonifer; Jose (Verified) Notes: (Fluoroscopy < 1 Hour) Reason For Exam: to be done and dictated by dr gabriel [id number];Other: RESULT: Fluoroscopy < 1 [address] Spine Fluoroscopy by Dr. Gabriel. Indications: . Fluoroscopy required to further asses the site of the compression recent T8 fractureand potential suitability for kyphoplasty. Comparisons. MRI 07/[address] scan 07/03 and prior lateral chest radiographs. Technique. Fluoroscopy was performed with images acquired at multiple levels using a radiopaque marker. Findings. His mobility is significantly limited by pain, having trouble with walking due to pain Patient indicates maximum pain and tenderness at level of the T8 moderate compression fracture. He hassignificant pain despite narcotic analgesia Impression. Recommendations. In this patient with a recent [within one week] T8 compression fracture and persisting incapacitating pain kyphoplasty seems warranted. He will need to be off clopidogrel and enoxaparin. I will discuss with his and hospitalist. Can be discharged home tomorrow and return as OP for kyphoplasty if they wish. Thank you for this kind consultation. Gen Gabriel FRCP, FRCR retort fireman WSN: [id number] Ordering Physician: Gen Gabriel Dictated By: Gen Gabriel MD Dictated Date/Time: 07/08/19 3:48 pm Reviewed By: Gen Gabriel MD Signed By: Gen Gabriel MD Signed Date/Time: 07/08/19 3:48 pm Transcribed By: BENITO Transcribed Date/Time: 07/08/19 3:44 pm Vital Signs Most recent to oldest [Reference Range]: 1 2 3 Height 175 cm (07/09/19 3:06 PM) 175 cm (07/09/19 6:20 AM) 175 cm (07/08/19 8:47 PM) Weight 70 kg (07/04/19 6:17 PM) Oxygen Saturation [94-100 %] 94 % (07/09/19 3:06 PM) 96 % (07/09/19 6:20 AM) 97 % (07/08/19 8:47 PM) Pulse Rate [55-90 bpm] 81 bpm (07/09/19 3:06 PM) 70 bpm (07/09/19 6:20 AM) 66 bpm (07/08/19 8:47 PM) Body Mass Index [18.5-24.99] 22.86 (07/04/19 6:17 PM) Blood Pressure [90-138/55-84 mm Hg] 105/56mm Hg (07/09/19 3:06 PM) 125/81mm Hg (07/09/19 6:20 AM) 125/67mm Hg (07/08/19 8:47 PM) Respiratory Rate [16-30 br/min] 18 br/min (07/09/19 3:06 PM) 14 br/min *L* (07/09/19 9:12 AM) 16 br/min (07/09/19 6:20 AM) Temperature [96.8-100.4 DegF] 98.3 DegF (07/09/19 3:06 PM) 98.6 DegF (07/09/19 6:20 AM) 97.2 DegF (07/08/19 8:47 PM) Liters per Minute 2 L/min (07/09/19 3:06 PM) 2 L/min (07/09/19 6:20 AM) 2 L/min (07/08/19 8:47 PM) Mode of Delivery (Oxygen) Nasal cannula (07/09/19 3:06 PM) Nasal cannula (07/09/19 6:20 AM) Nasal cannula (07/08/19 8:47 PM) Blood pressure sites Arm, right (07/09/19 3:06 PM) Arm, left (07/09/19 6:20 AM) Arm, right (07/08/19 8:47 PM) Temperature Route Oral (07/09/19 3:06 PM) Oral (07/09/19 6:20 AM) Oral (07/08/19 8:47 PM) Dry Weight 70 kg (07/04/19 6:17 PM) Weight Obtained Via Bed scale (07/04/19 6:17 PM) Dry Weight Obtained Via Bed scale (07/04/19 6:17 PM) Sensory deficits None (07/04/19 6:17 PM) Mobility assistance Total assistance (07/04/19 6:17 PM) Social History Social History Type Response Smoking Status Former smoker; Type: Cigarettes; Other: Quit 2014; Number of years: 40; entered on: 06/11/16 Sex Male
--- OUTSIDE RECORDS SUMMARY | 2022-11-22 19:37 | XMS_ITS | Continuity of Care Document ---
Author Name Unknown Organization [facility] ter Address [address] [place] [id number]- Care Team Providers Care School Library Media Specialist Name Role Phone Sera LUNA, Go Chavez Primary Care Physician [phone] Encounter [facility] [place]CT R [id number] Date(s): 06/08/19 - 06/12/[address] [address]- [facility] Encounter Diagnosis COPD with emphysema(Final) - 06/08/19 Acute upper respiratory infection(Final) - 06/08/19 Discharge Disposition: A-D/C Home Attending Physician: Ariadna Dickerson MD Admitting Physician: Nehal Laguerre DO Referring Physician: Not on Staff, Referring MD Allergies, Adverse Reactions, Alerts Substance Reaction Severity Status NKA Active Immunizations Not Given Vaccine Date Status Refusal Reason pneumococcal 13-valent vaccine 1 05/16/19 Not Give n Patient Refuses pneumococcal 23-valent vaccine 2 11/28/14 Not Give n Patient Refuses 1Result Comment: already recieved PNA vax 2Result Note: states told him he had it last year Medications Acetaminophen = 325 mg, By Mouth, prn, 0 Refills, Maintenance, 12/24/18 13:10:50 EDT Start Date: 12/24/18 Status: Ordered albuterol 0.083% inhalation solution 3 mL = 2.5 mg, Inhalation, Every 6 hours, J44.9, # 120 each, 6 Refills, Maintenance, 05/25/19 12:09:00 EST, Solution, [facility], 175, cm, 05/22/19 17:10:00 EST, Height, 71.8, kg, 05/15/19 4:27:00 EST, Dry Weight Start Date: 05/25/19 Status: Ordered aspirin 81 mg oral tablet 1 tablet = 81 mg, By Mouth, Daily, 0 Refills, Maintenance, 11/27/14 1:49:21 Start Date: 11/27/14 Status: Ordered Breo Ellipta 100 mcg-25 mcg/inh inhalation powder 1 puffs, Inhalation, Daily, rinse mouth and throat after use. ICD 10 code J44.9, # 1 each, 11 Refills, Maintenance, 10/15/18 10:06:00 EDT, Powder, J44.9, 1 puffs Inhalation Daily,Instr:rinse mouth and throat after use. ; ICD 10 code J44.9 Start Date: 10/15/18 Status: Ordered clopidogrel 75 mg oral tablet 1 tablet = 75 mg, By Mouth, Daily, 0 Refills, Maintenance, 11/27/14 1:48:52 Start Date: 11/27/14 Status: Ordered docusate sodium 100 mg oral capsule 100 mg, 1, capsule, By Mouth, 2 times a day, Refills 0, Maintenance, 12/24/18 13:11:56 EDT Start Date: 12/24/18 Status: Ordered pravastatin 40 mg oral tablet 1 tablet = 40 mg, By Mouth, Daily, 0 Refills, Maintenance, 12/24/18 13:14:34 EDT Start Date: 12/24/18 Status: Ordered ProAir HFA 90 mcg/inh inhalation aerosol with adapter 2, puffs, Inhalation, 4 times a day, PRN, j44.9 NO SUBSTITUTIONS, # 1 each, Refills 6, Tot. Refills6, Maintenance, 05/25/19 12:12:00 EST, Aerosol, Route to Pharmacy Electronically, NCPDP_[id number],[facility], 175, cm, 05/22/19 1... Start Date: 05/25/19 Status: Ordered sertraline 25 mg oral tablet 1 tablet = 25 mg, By Mouth, Daily, 0 Refills, Maintenance, 12/24/18 13:15:03 EDT Start Date: 12/24/18 Status: Ordered Spiriva HandiHaler 18 mcg inhalation capsule 1 capsule = 18 mcg, Inhalation, Daily, # 30 capsule, 5 Refills, Maintenance, 04/22/19 14:43:00 EST,[facility], 175, cm, 12/24/18 13:08:00 EDT, Height, 75.5, kg, 05/25/18 17:01:00 EST, Dry Weight Start Date: 04/22/19 Status: Ordered Walker See Instructions, # 1 each, Maintenance, Given severe COPD and increasing weakness, pt needs a walker to assist in ambulation, 06/12/19 10:41:00 EDT, Compound Start Date: 06/12/19 Status: Ordered Problem List Condition Effective Dates Status Health Status Inform ant Chronic respiratory failure with hypoxia(Confirmed) Active Flank pain(Confirmed) Active Pulmonary nodule(Confirmed) Active PVD (peripheral vascular disease)(Confirmed) Active COPD, severe(Confirmed) Active History of tobacco use(Confirmed) Active Results Radiology Reports * Exam Date Time Procedure Performing Provider Status 06/08/19 1:52 PM Chest Portable Brooklynn Carbajal; Aut h (Verified) Notes: (Chest Portable) Reason For Exam: Cough RESULT: Chest Portable Chest Portable CLINICAL INDICATION: Cough. COMPARISON: Prior chest x-rays, most recently 05/14/2019. Chest CT, 10/25/2017. FINDINGS: The cardiac silhouette is within normal limits. Hilar and mediastinal contours are stable. Again noted lucency of the apices compatible emphysema. Linear opacity extending from the right perihilar region to the lateral pleural convexity as well as in the left lower lobe are unchanged fromseveral prior exams, presumably scarring. There is no focal consolidation. There is chronic blunting of the right costophrenic angle. There is no pneumothorax or evidence of CHF. No acute osseous abnormality is noted. IMPRESSION: No acute cardiopulmonary process. Emphysema with areas of bilateral linear scarring are unchanged. WSN: [id number] Ordering Physician: Beto Thomas Dictated By: Violeta Partida MD Dictated Date/Time: 06/08/19 1:55 pm Reviewed By: Violeta Partida MD Signed By: Violeta Partida MD Signed Date/Time: 06/08/19 1:55 pm Transcribed By: BENITO Transcribed Date/Time: 06/08/19 1:52 pm Vital Signs Most recent to oldest [Reference Range]: 1 2 3 Height 175.26 cm (06/12/19 7:45 AM) 175.26 cm (06/11/19 3:18 PM) 175.26 cm (06/11/19 7:58 AM) Weight 68.3 kg (06/10/19 8:31 PM) 68.2 kg (06/08/19 8:16 PM) Oxygen Saturation [94-100 %] 94 % (06/12/19 7:45 AM) 95 % (06/12/19 4:00 AM) 93 % *L* (06/11/19 11:00 PM) Pulse Rate [55-90 bpm] 84 bpm (06/12/19 7:45 AM) 87 bpm (06/12/19 4:00 AM) 98 bpm *H* (06/11/19 11:00 PM) Body Mass Index [18.5-24.99] 22.2 (06/08/19 8:16 PM) Blood Pressure [90-138/55-84 mm Hg] 117/72mm Hg (06/12/19 7:45 AM) 119/63mm Hg (06/12/19 4:00 AM) 119/65mm Hg (06/11/19 11:00 PM) Respiratory Rate [16-30 br/min] 20 br/min (06/12/19 7:45 AM) 19 br/min (06/12/19 4:00 AM) 19 br/min (06/11/19 11:00 PM) Temperature [96.8-100.4 DegF] 97.9 DegF (06/12/19 7:45 AM) 98.4 DegF (06/12/19 4:00 AM) 98.0 DegF (06/11/19 11:00 PM) Liters per Minute 2 L/min (06/12/19 7:45 AM) 2 L/min (06/12/19 4:00 AM) 2 L/min (06/11/19 11:00 PM) Mode of Delivery (Oxygen) Nasal cannula (06/12/19 7:45 AM) Nasal cannula (06/12/19 4:00 AM) Nasal cannula (06/11/19 11:00 PM) Blood pressure sites Arm, left (06/12/19 7:45 AM) Arm, right (06/12/19 4:00 AM) Arm, right (06/11/19 11:00 PM) Temperature Route Oral (06/12/19 7:45 AM) Oral (06/12/19 4:00 AM) Oral (06/11/19 11:00 PM) Dry Weight 68.18 kg (06/08/19 8:16 PM) Weight Obtained Via Bed scale (06/10/19 8:31 PM) Bed scale (06/08/19 8:16 PM) Sensory deficits None (06/08/19 8:16 PM) Mobility assistance Partial assistance (06/08/19 8:16 PM) Social History Social History Type Response Smoking Status Former smoker; Type: Cigarettes; Other: Quit 2014; Number of years: 40; entered on: 06/11/16 Sex
--- OUTSIDE RECORDS SUMMARY | 2022-11-22 19:37 | XMS_ITS | Continuity of Care Document ---
Author Name Unknown Organization [facility] ter Address [address] [place] [id number]- Care Team Providers Care Buffer Chrome Name Role Phone Sera LUNA, Go Chavez Primary Care Physician [phone] [place] [facility] [place] 09/26[place]21 - 09/29/[address] [address]- Discharge Disposition: A-D/C Home Attending Physician: Charlie Alfredo MD Admitting Physician: Keegan Cavazos MD Referring Physician: Not on Staff, Referring MD Allergies, Adverse Reactions, Alerts No Known [...] 6 Refills, Maintenance, 05/25/19 12:09:00 EST, Solution, [facility], 175, cm, 05/22/19 17:10:00 EST, Height, 71.8, kg, 05/15/19 4:27:00 EST, Dry Weight Start Date: 05/25/19 Status: Ordered amLODIPine 5 mg oral tablet 5 mg, Tablet, By Mouth, 09/29/21 9:00:00 EDT Start Date: 09/29/21 Stop Date: 09/29/21 Status: Completed amLODIPine 5 mg oral tablet 5 mg, 1, tablet, By Mouth, Daily, # 30 tablet, Refills 0, Tot. Refills 0, Maintenance, 09/29/21 10:40:00 EDT, Route to Pharmacy Electronically, [facility], Partial fill upon patient request [...] AND SATURDAY, # 15 tablet, 6 Refills, [facility], 175, cm, 01/18/20 10:03:00 EDT, Height, 70.5, kg, 07/13/19 9:41:00EDT, Dry Weight Start Date: 05/16/21 Status: Ordered Breo Ellipta 100 mcg-25 mcg/inh inhalation powder 1 puffs, Inhalation, Daily, RINSE MOUTH AND THROAT AFTER USE., # 60 Unknown, 4 Refills, [facility], 30, INHALE 1 PUFF BY MOUTH [...] 13:18:00 EDT, Aerosol, Route to Pharmacy Electronically, [id number]_[id number],[facility], 175, cm, 01/18/20 1... Start Date: 08/02/20 Status: Ordered Spiriva HandiHaler 18 mcg inhalation capsule 1 capsule = 18 mcg, Inhalation, Daily, j44.9, # 30 capsule, 6 Refills, Maintenance, 06/02/20 17:56:00 EST, [facility], 175, cm, 01/18/20 10:03:00 EDT, Height, 70.5, kg, 07/13/19 9:41:00 EDT, Dry Weight Start Date: 06/02/20 Status: Ordered Problem List Condition Effective Dates Status Health Status Inform ant Chronic respiratory failure with hypoxia(Confirmed) Active COVID-19(Confirmed) Active COVID-19(Confirmed) 1 09/06/21 Active Flank pain(Confirmed) Active Pulmonary nodule(Confirmed) Active PVD (peripheral vascular disease)(Confirmed) Active COPD, severe(Confirmed) Active History of tobacco use(Confirmed) Active 1Problem added by Discern Expert Results Radiology Reports * Exam Date Time Procedure Performing Provider Status 09/26/21 11:58 PM Chest Single Frontal View Evangelist Castillo; Jose (Verified) Notes: (Chest Single Frontal View) Reason For Exam: Chest Pain;Other: RESULT: Chest Single Frontal View Chest Single Frontal View Hx of Present Illness: pt reporting juliann umbillicial pain x2 days, woke up this morning and pain felt significantly worse, unable to tolerate PO, denies N V, states has not had a BM in two days; Reason: Other:; Chest Pain; Clinical Question(s): Other: COMPARISON: 09/01/2021 FINDINGS: Mild left basilar airspace disease IMPRESSION: Mild left basilar airspace disease may be atelectasis WSN: [id number] Ordering Physician: Faby Olvera Dictated By: Yobany Pepe MD Dictated Date/Time: 09/27/21 7:54 am Reviewed By: Yobany Pepe MD Signed By: Yobany Pepe MD Signed Date/Time: 09/27/21 7:54 am Transcribed By: BENITO Transcribed Date/Time: 09/27/21 7:53 am Vital Signs Most recent to oldest [Reference Range]: 1 2 3 Height 170 cm (09/29/21 1:34 PM) 170 cm (09/29/21 12:26 PM) 170 cm (09/29/21 9:18 AM) Weight 66.0 kg (09/29/21 7:00 AM) 66.9 kg (09/28/21 4:57 AM) Oxygen Saturation [94-100 %] 98 % (09/29/21 1:34 PM) 96 % (09/29/21 12:26 PM) 96 % (09/29/21 7:00 AM) Pulse Rate [55-90 bpm] 114 bpm *H* (09/29/21 1:34 PM) 92 bpm *H* (09/29/21 12:26 PM) 92 bpm *H* (09/29/21 9:18 AM) Body Mass Index [18.5-24.99] 22.84 (09/29/21 7:00 AM) 23.15 (09/28/21 4:57 AM) Blood Pressure [90-138/55-84 mm Hg] 125/76mm Hg (09/29/21 1:34 PM) 107/61mm Hg (09/29/21 12:26 PM) 117/61mm Hg (09/29/21 9:41 AM) Respiratory Rate [16-30 br/min] 20 br/min (09/29/21 1:34 PM) 18 br/min (09/29/21 12:26 PM) 18 br/min (09/29/21 9:18 AM) Temperature [96.8-100.4 DegF] 98.5 DegF (09/29/21 1:34 PM) 98.6 DegF (09/29/21 12:26 PM) 98.8 DegF (09/29/21 9:18 AM) Liters per Minute 4 L/min (09/29/21 1:34 PM) 2 L/min (09/29/21 12:26 PM) 2 L/min (09/29/21 7:00 AM) Mode of Delivery (Oxygen) Nasal cannula (09/29/21 1:34 PM) Room air (09/29/21 12:26 PM) Nasal cannula (09/29/21 7:00 AM) Blood pressure sites Arm, right (09/29/21 1:34 PM) Arm, right (09/29/21 12:26 PM) Arm, right (09/29/21 9:18 AM) Temperature Route Oral (09/29/21 1:34 PM) Oral (09/29/21 12:26 PM) Oral (09/29/21 9:18 AM) Dry Weight 66.9 kg (09/28/21 4:57 AM) Weight Obtained Via Bed scale (09/29/21 7:00 AM) Social History Social History Type Response Smoking Status Former smoker; Type: Cigarettes; Other: Quit 2014; Number of years: 40; entered on: 06/11/16 Sex
--- OUTSIDE RECORDS SUMMARY | 2022-11-22 19:37 | XMS_ITS | Continuity of Care Document ---
Author Name Unknown Organization [facility] Address [address] [address]- Care Team Providers Care Folder Tier Name Role Phone Sera LUNA, Go Chavez Primary Care Physician [phone] [place] [facility] [place] [facility] [address] [place] [id number] Attending Physician: Andrew Qiu MD Admitting Physician: Andrew Qiu MD Allergies, Adverse Reactions, Alerts Substance Reaction [...] 6 Refills, Maintenance, 05/25/19 12:09:00 EST, Solution, [facility], 175, cm, 05/22/19 17:10:00 EST, Height, 71.8, kg, 05/15/19 4:27:00 EST, Dry Weight Start Date: 05/25/19 Status: Ordered azithromycin 500 mg oral tablet See Instructions, 1 tablet By Mouth Saturday, Saturday and Saturday, j44.9, # 15 tablet, 3 Refills, Maintenance, 05/13/20 16:47:00 EST, [facility], 175, cm, 01/18/20 10:03:00 EDT, Height, 70.5, kg, 07/13/19 9:41:00 EDT, Dry Weight Start Date: 05/13/20 Status: Ordered azithromycin 500 mg oral tablet See Instructions, J 444.9 1 tablet By Mouth Saturday, Saturday and Saturday, # 15 tablet, 6 Refills, Maintenance, 09/20/20 15:33:00 EDT, [facility], 175, cm, 01/18/20 10:03:00 EDT, Height, 70.5, kg, 07/13/19 9:41:00 EDT, Dry Weight Start Date: 09/20/20 Status: Ordered Breo Ellipta 100 mcg-25 mcg/inh inhalation powder 1 puffs, Inhalation, Daily, rinse mouth and throat after use. ICD 10 code J44.9, # 1 each, 6 Refills, Maintenance, 06/03/20 8:17:00 EST, Powder, [facility], J44.9, 1 puffs InhalationDaily,Instr:rinse mouth and throat after use. ;... Start Date: 06/03/20 Status: Ordered calcitonin 200 iu/inh nasal spray 1 sprays, Naris, Right, Every other day, # 1 each, 0 Refills, Maintenance, 07/09/19 16:47:00 EDT, Nasal [place], [facility], 175, cm, 07/09/19 15:06:00 [...] 0 Refills, Maintenance, 07/09/19 16:47:00 EDT, Patch, [facility], 1 patch Topically Daily,x14 days,Instr:Patel not place over surgery... Start Date: 07/09/19 Stop Date: 07/23/19 Status: Ordered Narcan 4 mg/0.1 mL nasal spray See Instructions, 4 mg Once, in case of emergency if you think you have taken too much oxycodone orare too sleepy to be woken up., # 2 each, 0 Refills, Soft Stop, 07/09/19 16:53:00 EDT, [facility], 175, cm, 07/09/19 [...] 13:18:00 EDT, Aerosol, Route to Pharmacy Electronically, NCPDP_[id number],[facility], 175, cm, 01/18/20 1... Start Date: 08/02/20 Status: Ordered sertraline 25 mg oral tablet 1 tablet = 25 mg, By Mouth, Daily, 0 Refills, Maintenance, 12/24/18 13:15:03 EDT Start Date: 12/24/18 Status: Ordered Spiriva HandiHaler 18 mcg inhalation capsule 1 capsule = 18 mcg, Inhalation, Daily, j44.9, # 30 capsule, 6 Refills, Maintenance, 06/02/20 17:56:00 EST, [facility], 175, cm, 01/18/20 10:03:00 [...]
--- OUTSIDE RECORDS SUMMARY | 2022-11-22 19:37 | XMS_ITS | Continuity of Care Document ---
Author Name Unknown Organization [facility] ter Address [address] [place] [id number]- Care Team Providers Care Helper Teacher Name Role Phone Sera LUNA, Go Chavez Primary Care Physician [place] [facility] [place] [id number] Date(s): 07/13/19 - 07/13/[address] [address]- [facility] Discharge Disposition: A-D/C Home Attending Physician: Gen Gabriel MD Admitting Physician: Gen Garbiel MD Referring Physician: Gen Gabriel MD Allergies, Adverse Reactions, Alerts Substance Reaction [...] 07/09/19 16:51:00 EDT, Route to Pharmacy Electronically, [facility] Start Date: 07/09/19 Stop Date: 07/19/19 Status: Ordered albuterol 0.083% inhalation solution 3 mL = 2.5 mg, Inhalation, Every 6 hours, J44.9, # 120 each, 6 Refills, Maintenance, 05/25/19 12:09:00 EST, Solution, [facility], 175, cm, 05/22/19 [...] 0 Refills, Maintenance, 07/09/19 16:47:00 EDT, Nasal [place], [facility], 175, cm, [...] 0 Refills, Maintenance, 07/09/19 16:47:00 EDT, Patch, [facility], 1 patch Topically Daily,x14 days,Instr:Patel not place over surgery... Start Date: 07/09/19 Stop Date: 07/23/19 Status: Ordered Narcan 4 mg/0.1 mL nasal spray See Instructions, 4 mg Once, in case of emergency if you think you have taken too much oxycodone orare too sleepy to be woken up., # 2 each, 0 Refills, Soft Stop, 07/09/19 16:53:00 EDT, [facility], 175, cm, [...] 12:12:00 EST, Aerosol, Route to Pharmacy Electronically, NCPDP_[id number],[facility], 175, cm, 05/22/19 1... Start Date: 05/25/19 Status: Ordered sertraline 25 mg oral tablet 1 tablet = 25 mg, By Mouth, Daily, 0 Refills, Maintenance, 12/24/18 13:15:03 EDT Start Date: 12/24/18 Status: Ordered Spiriva HandiHaler 18 mcg inhalation capsule 1 capsule = 18 mcg, Inhalation, Daily, # 30 capsule, 5 Refills, Maintenance, 04/22/19 14:43:00 EST,[facility], 175, cm, 12/24/18 13:08:00 EDT, Height, 75.5, kg, 05/25/18 17:01:00 EST, Dry Weight Start Date: 04/22/19 Status: Ordered Problem List Condition Effective Dates Status Health Status Inform ant Chronic respiratory failure with hypoxia(Confirmed) Active Flank pain(Confirmed) Active Pulmonary nodule(Confirmed) Active PVD (peripheral vascular disease)(Confirmed) Active COPD, severe(Confirmed) Active History of tobacco use(Confirmed) Active Vital Signs Most recent to oldest [Reference Range]: 1 Height 175 cm (07/13/19 9:41 AM) Weight 70.5 kg (07/13/19 9:41 AM) Oxygen Saturation [94-100 %] 99 % (07/13/19 9:21 AM) Pulse Rate [55-90 bpm] 83 bpm (07/13/19 9:21 AM) Blood Pressure [90-138/55-84 mm Hg] 165/ 83mm Hg *H* (07/13/19 9:21 AM) Respiratory Rate [16-30 br/min] 20 br/mi n (07/13/19 9:21 AM) Temperature [96.8-100.4 DegF] 97.7 DegF (07/13/19 9:21 AM) Mode of Delivery (Oxygen) Room air (07/13/19 9:21 AM) Blood pressure sites Arm, left (07/13/19 9:21 AM) Temperature Route Oral (07/13/19 9:21 AM) Dry Weight 70.5 kg (07/13/19 9:41 AM) Social History Social History Type Response Smoking Status Former smoker; Type: Cigarettes; Other: Quit 2014; Number of years: 40; entered on: 06/11/16 Sex
--- OUTSIDE RECORDS SUMMARY | 2022-11-22 19:37 | XMS_ITS | Continuity of Care Document ---
Author Name Unknown Organization [facility] Address [address] [place] [id number]- Care Team Providers Care Customer Care Assistant Name Role Phone Sera LUNA, Go Chavez Primary Care Phys[place] [facility] [place] 03[place]03[place]20 [facility] [address] [place], [place] [address] Allergies, Adverse Reactions, Alerts Substance Reaction Severity [...] Refills, Maintenance, 05/25/19 12:09:00 EST, Solution, [facility], 175, cm, 05/22/19 17:10:00 EST, Height, 71.8, kg, 05/15/19 4:27:00 EST, Dry Weight Start Date: 05/25/19 Status: Ordered azithromycin 500 mg oral tablet See Instructions, 1 tablet By Mouth Saturday, Saturday and Saturday, # 13 tablet, 5 Refills, Acute 11/13/20 15:11:00 EDT, 11/13/19 15:10:00 EDT, [facility] #[id number], 175, cm, 07/13/19 9:41:00 EDT, Height, 70.5, kg, 07/13/19 9:41:00 EDT, Dry Weight Start Date: 11/13/19 Stop Date: 11/13/20 Status: Ordered Breo Ellipta 100 mcg-25 mcg/inh inhalation powder 1 puffs, Inhalation, Daily, rinse mouth and throat after use. ICD 10 code J44.9, # 1 each, 6 Refills, Maintenance, 10/20/19 12:59:00 EDT, Powder, [facility], J44.9, 1 puffs Inhalation Daily,Instr:rinse mouth and throat after use.... Start Date: 10/20/19 Status: Ordered calcitonin 200 iu/inh nasal spray 1 sprays, Naris, Right, Every other day, # 1 each, 0 Refills, Maintenance, 07/09/19 16:47:00 EDT, Nasal [place], [facility], 175, cm, 07/09/19 [...] Refills, Maintenance, 07/09/19 16:47:00 EDT, Patch, [facility], 1 patch Topically Daily,x14 days,Instr:Patel not place over surgery... Start Date: 07/09/19 Stop Date: 07/23/19 Status: Ordered Narcan 4 mg/0.1 mL nasal spray See Instructions, 4 mg Once, in case of emergency if you think you have taken too much oxycodone orare too sleepy to be woken up., # 2 each, 0 Refills, Soft Stop, 07/09/19 16:53:00 EDT, [facility], 175, cm, 07/09/19 [...] 12:12:00 EST, Aerosol, Route to Pharmacy Electronically, NCPDP_[id number],[facility], 175, cm, 05/22/19 1... Start Date: 05/25/19 Status: Ordered sertraline 25 mg oral tablet 1 tablet = 25 mg, By Mouth, Daily, 0 Refills, Maintenance, 12/24/18 13:15:03 EDT Start Date: 12/24/18 Status: Ordered Spiriva HandiHaler 18 mcg inhalation capsule 1 capsule = 18 mcg, Inhalation, Daily, j44.9, # 30 capsule, 5 Refills, Maintenance, 12/08/19 13:09:00 EDT, [facility], 175, cm, 07/13/19 9:41:00 EDT, Height, 70.5, kg, 07/13/19 9:41:00 EDT, Dry Weight Start Date: 12/08/19 Status: Ordered Problem List Condition Effective Dates [...]
--- OUTSIDE RECORDS SUMMARY | 2022-11-22 19:37 | XMS_ITS | Continuity of Care Document ---
Author Name Unknown Organization [facility] Address [address] [place] [id number]- Care Team Providers Care Anodizing Line Operator Name Role Phone Sera LUNA, Go Chavez Primary Care Physician [phone] Encounter [facility] [place] Date(s): 04/28/19 - 05/08/19 [facility] [address] [place] [address]- [facility] Attending Physician: Nerissa Christianson Admitting Physician: AdmtrNerissa Referring Physician: Admtr, ArTrenton Allergies, Adverse Reactions, Alerts Substance Reaction Severity Status NKA Active Immunizations Not Given Vaccine Date Status Refusal Reason pneumococcal 23-valent vaccine 1 11/28/14 Not Give n Patient Refuses 1Result Note: states told him he had it last year Medications Abdominal binder Abdominal binder, See Instructions, # 1 each, Refills 0, Tot. Refills 0, Maintenance, Use for comfort, 05/25/18 17:02:11 EST, Compound Start Date: 05/25/18 Status: Ordered Acetaminophen = 325 mg, By Mouth, prn, 0 Refills, Maintenance, 12/24/18 13:10:50 EDT Start Date: 12/24/18 Status: Ordered Advair Diskus 250 mcg-50 mcg inhalation powder 1 puff, Inhalation, 2 times a day, Refills 0, Maintenance, 12/24/18 13:13:45 EDT Start Date: 12/24/18 Status: Ordered albuterol 0.083% inhalation solution 3 mL = 2.5 mg, Inhalation, Every 6 hours, PRN for wheezing, J44.9, # 360 mL, 0 Refills, Maintenance, 04/30/19 8:03:00 EST, Solution, [facility], 175, cm, 04/28/19 10:43:00 EST, Height, 75.5, kg, 05/25/18 17:01:00 EST, Dry Weight Start Date: 04/30/19 Status: Ordered ammonium lactate 12% topical cream 1 applicator, Topically, 2 times a day, 0 Refills, Maintenance, 12/07/15 11:52:06 Start Date: 12/07/15 Status: Ordered aspirin 81 mg oral tablet [...] 13:11:56 EDT Start Date: 12/24/18 Status: Ordered Durable Medical Equipment Maintenance, Nebulizer machine, 04/28/19 10:47:00 EST, Compound Start Date: 04/28/19 Status: Ordered Guaifenesin Guaifenesin, 600 mg, By Mouth, 2 times a day, Refills 0, Maintenance, 12/24/18 13:16:13 EDT, Compound Start Date: 12/24/18 Status: Ordered lidocaine 5% topical film 1 patch, Topically, Daily, PRN Pain, # 7 patch, 0 Refills, Maintenance, 07/24/17 10:33:24 EDT, Patch Start Date: 07/24/17 Stop Date: 07/31/17 Status: Ordered Lidocaine with Tegaderm 4% topical kit 1 applicator, Topically, 3 times a day, # 20 kit, 0 Refills, Maintenance, 05/25/18 16:07:10 EST Start Date: 05/25/18 Status: Ordered morphine 15 mg oral tablet, immediate release 1 tablet = 15 mg, By Mouth, Every 4 hours, PRN for pain, # 10 tablet, 0 Refills, Maintenance, 05/25/18 16:06:18 EST, Tablet Start Date: 05/25/18 Status: Ordered pravastatin 40 mg oral tablet 1 tablet = 40 mg, By Mouth, Daily, 0 Refills, Maintenance, 12/24/18 13:14:34 EDT Start Date: 12/24/18 Status: Ordered pravastatin 80 mg oral tablet 1 tablet = 80 mg, By Mouth, Daily, Maintenance, 07/22/17 13:30:41 EDT, Tablet Start Date: 07/22/17 Status: Ordered predniSONE 10 mg oral tablet By Mouth, SEE ATTACHED SHEET FOR TAPER INSTRUCTIONS Start Date: 12/24/18 Status: Ordered ProAir HFA 90 mcg/inh inhalation aerosol with adapter 180 mcg, 2, puffs, Inhalation, 4 times a day, PRN, prn only, # 1 each, Refills 3, Tot. Refills 3, Maintenance, 12/24/18 13:38:06 EDT, Inhaler, Route to Pharmacy Electronically, NCPDP_[id number], [facility] Start Date: 12/24/18 Status: Ordered PT eval and treat PT eval and treat, See Instructions, # 1 application, Refills 0, Tot. Refills 0, Maintenance, PT eval and treat, 07/24/17 10:40:59 EDT, Compound Start Date: 07/24/17 Status: Ordered sertraline 25 mg oral tablet 1 tablet = 25 mg, By Mouth, Daily, 0 Refills, Maintenance, 12/24/18 13:15:03 EDT Start Date: 12/24/18 Status: Ordered Spiriva HandiHaler 18 mcg inhalation capsule 1 capsule = 18 mcg, Inhalation, Daily, # 30 capsule, 5 Refills, Maintenance, 04/22/19 14:43:00 EST,[facility], 175, cm, 12/24/18 13:08:00 EDT, Height, 75.5, kg, 05/25/18 17:01:00 EST, Dry Weight Start Date: 04/22/19 Status: Ordered Walker See Instructions, # 1 each, Maintenance, use as shown, especially when taking pain medicine, 05/25/18 16:06:01 EST, Compound Start Date: 05/25/18 Status: Ordered Walker with wheels Walker with wheels, See Instructions, # 1 application, Refills 0, Tot. Refills 0, Maintenance, Walker with wheels, 07/24/17 10:40:51 EDT, Compound Start Date: 07/24/17 Status: Ordered Problem List Condition Effective Dates [...]
--- OUTSIDE RECORDS SUMMARY | 2022-11-22 19:37 | XMS_ITS | Continuity of Care Document ---
Author Name Unknown Organization [facility] ter Address [address] [place] [address]- Care Team Providers Care Surgery Specialist Name Role Phone Sera LUNA, Go Cahvez Primary Care Physician [place] [facility] [place] 09/06/[address] [address] Discharge Disposition: A-Transfer VNA/Home Health Attending Physician: Chuck Garcia MD Admitting Physician: Ortiz Barnes DO Referring Physician: Not on Staff, Referring [...] 6 Refills, Maintenance, 05/25/19 12:09:00 EST, Solution, [facility], 175, cm, 05/22/19 17:10:00 EST, Height, 71.8, kg, 05/15/19 4:27:00 EST, Dry Weight Start Date: 05/25/19 Status: Ordered aspirin 81 mg oral delayed [...] AND SATURDAY, # 15 tablet, 6 Refills, [facility], 175, cm, 01/18/20 10:03:00 EDT, Height, 70.5, kg, 07/13/19 9:41:00EDT, Dry Weight Start Date: 05/16/21 Status: Ordered Breo Ellipta 100 mcg-25 mcg/inh inhalation powder 1 puffs, Inhalation, Daily, RINSE MOUTH AND THROAT AFTER USE., # 60 Unknown, 4 Refills, [facility], 30, INHALE 1 PUFF BY MOUTH [...] opioid drug. Start Date: 09/01/21 Status: Ordered dexamethasone 4 mg oral tablet 1.5 tablet = 6 mg, By Mouth, Daily, for 4 days, # 6 tablet, 0 Refills, Acute 09/10/21 9:29:00 EDT, 09/06/21 9:29:00 EDT, Tablet, [facility], Partial fill upon patient request if the prescription is for a schedule II opioid drug., 175,... Start Date: 09/06/21 Stop Date: 09/10/21 Status: Ordered dextromethorphan-guaifenesin 10 mg-200 mg/5 mL oral liquid 5 mL, By Mouth, Every 4 hours, PRN Cough, for 14 days, # 120 mL, 0 Refills, Acute 09/20/21 9:30:00 EDT, 09/06/21 9:30:00 EDT, Liquid, [facility], Partial fill upon patient request ifthe prescription is for a schedule II opioid drug.,... Start Date: 09/06/21 Stop Date: 09/20/21 Status: Ordered pravastatin 40 mg oral tablet 1 tablet = 40 mg, By Mouth, Daily, 0 Refills, Maintenance, 12/24/18 13:14:34 EDT Start Date: 12/24/18 Status: Ordered ProAir HFA 90 mcg/inh inhalation aerosol with adapter 2, puffs, Inhalation, 4 times a day, PRN, j44.9 NO SUBSTITUTIONS, # 1 each, Refills 6, Tot. Refills6, Maintenance, 08/02/20 13:18:00 EDT, Aerosol, Route to Pharmacy Electronically, NCPDP_[id number],[facility], 175, cm, 01/18/20 1... Start Date: 08/02/20 Status: Ordered Spiriva HandiHaler 18 mcg inhalation capsule 1 capsule = 18 mcg, Inhalation, Daily, j44.9, # 30 capsule, 6 Refills, Maintenance, 06/02/20 17:56:00 EST, [facility], 175, cm, 01/18/20 10:03:00 [...] Exam Date Time Procedure Performing Provider Status 09/01/21 12:54 PM Chest Portable Emily Cota; Jose (Aaliyah ified) Notes: (Chest Portable) Reason For Exam: Shortness of Breath RESULT: Chest Portable Chest Portable Reason: Shortness of Breath; Clinical Question(s): CHF COMPARISON: Multiple priors, most recent 06/08/2019. CT chest 01/18/2021. FINDINGS: LINES AND TUBES: None. 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 Chronic enlargement of the perihilar pulmonary vasculature. There is scarring/atelectasis in the right middle lung. No pleural effusion. No pneumothorax. HEART, MEDIASTINUM AND LORENE: Heart is normal in size. Aorta is somewhat tortuous. BONES AND SOFT TISSUES: No acute osseous abnormality. Old kyphoplasty of the T8 vertebral body. IMPRESSION: No acute abnormality. Emphysematous changes greater on the right. I have personally reviewed the images and I agree with this report. WSN: [id number] Ordering Physician: Iam Contreras Dictated By: Mars Sheldon DO Dictated Date/Time: 09/01/21 2:07 pm Reviewed By: Mariluz Lucero MD Signed By: Mariluz Lucero MD Signed Date/Time: 09/01/21 2:12 pm Transcribed By: BENITO Transcribed Date/Time: 09/01/21 2:03 pm Vital Signs Most recent to oldest [Reference Range]: 1 2 3 Oxygen Saturation [94-100 %] 96 % (09/06/21 11:36 AM) 97 % (09/06/21 8:15 AM) 95 % (09/06/21 4:00 AM) Pulse Rate [55-90 bpm] 95 bpm *H* (09/06/21 11:36 AM) 75 bpm (09/06/21 8:15 AM) 80 bpm (09/06/21 4:00 AM) Blood Pressure [90-138/55-84 mm Hg] 95/77mm Hg (09/06/21 11:36 AM) 156/79mm Hg *H* (09/06/21 8:15 AM) 120/66mm Hg (09/06/21 4:00 AM) Respiratory Rate [16-30 br/min] 19 br/min (09/06/21 11:36 AM) 18 br/min (09/06/21 8:15 AM) 18 br/min (09/06/21 4:00 AM) Temperature [96.8-100.4 DegF] 97.5 DegF (09/06/21 11:36 AM) 97.7 DegF (09/06/21 8:15 AM) 97.6 DegF (09/06/21 4:00 AM) Liters per Minute 2 L/min (09/06/21 11:36 AM) 2 L/min (09/06/21 8:15 AM) 2 L/min (09/06/21 4:00 AM) Mode of Delivery (Oxygen) Nasal cannula (09/06/21 11:36 AM) Nasal cannula (09/06/21 8:15 AM) Nasal cannula (09/06/21 4:00 AM) Blood pressure sites Arm, left (09/06/21 11:36 AM) Arm, left (09/06/21 8:15 AM) Arm, right (09/06/21 4:00 AM) Temperature Route Oral (09/06/21 11:36 AM) Oral (09/06/21 8:15 AM) Oral (09/06/21 4:00 AM) Social History Social History Type Response Smoking Status Former smoker; Type: Cigarettes; Other: Quit 2014; Number of years: 40; entered on: 06/11/16 Sex
--- OUTSIDE RECORDS SUMMARY | 2022-11-22 19:37 | XMS_ITS | Continuity of Care Document ---
Author Name Unknown Organization [facility] Address [address] [place] [address]- Care Team Providers Care Scoop Machine Operator Name Role Phone Sera LUNA, Go Chavez Primary Care Physician [place] [facility] [place]/22 [facility] [address] [place], [place] [address] Attending Physician: Nerissa Christianson Admitting Physician: AdmNerissa strange Referring Physician: Admtr, ArTrenton Allergies, Adverse Reactions, Alerts No Known Allergies [...] 6 Refills, Maintenance, 05/25/19 12:09:00 EST, Solution, [facility], 175, cm, 05/22/19 17:10:00 EST, Height, 71.8, kg, 05/15/19 4:27:00 EST, Dry Weight Start Date: 05/25/19 Status: Ordered amLODIPine 5 mg oral tablet 5 mg, 1, tablet, By Mouth, Daily, # 30 tablet, Refills 0, Tot. Refills 0, Maintenance, 09/29/21 10:40:00 EDT, Route to Pharmacy Electronically, [facility], Partial fill upon patient [...] AND SATURDAY, # 15 tablet, 6 Refills, [facility], 175, cm, 01/18/20 10:03:00 EDT, Height, 70.5, kg, 07/13/19 9:41:00EDT, Dry Weight Start Date: 05/16/21 Status: Ordered Breo Ellipta 100 mcg-25 mcg/inh inhalation powder 1 puffs, Inhalation, Daily, RINSE MOUTH AND THROAT AFTER USE., # 60 Unknown, 4 Refills, [facility], 30, INHALE 1 PUFF [...] 13:18:00 EDT, Aerosol, Route to Pharmacy Electronically, NCPDP_[id number],[facility], 175, cm, 01/18/20 1... Start Date: 08/02/20 Status: Ordered Spiriva HandiHaler 18 mcg inhalation capsule 1 capsule = 18 mcg, Inhalation, Daily, j44.9, # 30 capsule, 6 Refills, Maintenance, 06/02/20 17:56:00 EST, [facility], 175, cm, 01/18/20 10:03:00 [...] Care Nurse Name: Margoth Perez RN Position: [facility] RN Member Role: Primary Care Nurse Name: Dennis Oliver RN Position: [facility] RN Member Role: Primary Care Nurse Name: Aicha Odonnell RN Position: [facility] RN Member Role: Primary Care Nurse Name: Madhuri Valentine RN Position: [facility] RN Member Role: Primary Care Nurse Name: Jessy Mauro RN Position: [facility] Pulmonary Rehab Mgr Member Role: Primary Care Nurse Name: Christina Gloria RN Position: [facility] RN Member Role: Primary Care Nurse Name: Ethel Wen RN Position: [facility] PCO RN Member Role: Primary Care Nurse Name: Cole Perkins RN Position: [facility] RN Member Role: Primary Care Nurse Address: Address: [address] [place] [id number] Name: Go Zamora MD Position: Reference Physician Member Role: PCP Address: Address: [address] [place] [id number]- Name: Merlene Carbajal RN Position: [facility] OB RN Member Role: Primary Care Nurse Name: Monica Pratt RN Position: [facility] RN Member Role: Primary Care Nurse Care Team Related Persons Name: CIARA AVILA Address: [address] [place] [address] Name: MARBELLA AVILA Address: home [address] [place] [address]
--- OUTSIDE RECORDS SUMMARY | 2022-11-22 19:37 | XMS_ITS | Continuity of Care Document ---
Author Name Unknown Organization [facility] ter Address [address] [place] [id number]- Care Team Providers Care Material Preparation Worker Name Role Phone Sera LUNA, Go Chavez Primary Care Physician [phone] Encounter [facility] [place](s): 05/14/19 - 05/22/[address] [address]- [facility] Encounter Diagnosis COPD exacerbation(Final) - 05/16/19 Discharge Disposition: A-Transfer SNF Attending Physician: Pako Baez MD Admitting Physician: Dennis Costello MD Referring Physician: Not on Staff, Referring [...] 13:10:50 EDT Start Date: 12/24/18 Status: Ordered aspirin 81 mg oral tablet [...] 13:11:56 EDT Start Date: 12/24/18 Status: Ordered Duoneb Inhalation Solution 1, vials, Neb, Every 6 hours, Refills 0, Maintenance, 05/22/19 16:01:00 EST, Inhalation Solution Start Date: 05/22/19 Status: Ordered Durable Medical Equipment Maintenance, Nebulizer machine, 04/28/19 10:47:00 EST, Compound Start Date: 04/28/19 Status: Ordered Guaifenesin Guaifenesin, 600 mg, By Mouth, 2 times a day, Refills 0, Maintenance, 12/24/18 13:16:13 EDT, Compound Start Date: 12/24/18 Status: Ordered pravastatin 40 mg oral tablet 1 tablet = 40 mg, By Mouth, Daily, 0 Refills, Maintenance, 12/24/18 13:14:34 EDT Start Date: 12/24/18 Status: Ordered predniSONE 10 mg oral tablet See Instructions, 40 mg po daily for 3 days then 30 mg for 3 days then 20 mg for 3 days then 10 mg for 3 days and stop., # 30 tablet, 0 Refills, Maintenance, 05/22/19 16:01:00 EST, Tablet Start Date: 05/22/19 Status: Ordered PT eval and treat PT [...] 30 capsule, 5 Refills, Maintenance, 04/22/19 14:43:00 EST,[facility], 175, cm, 12/24/18 13:08:00 [...] Active History of tobacco use(Confirmed) Active Results Orders for Microbiology Reports Name Date Blood Culture 05/14/19 Blood Culture #2 05/14/19 Microbiology Reports TEST:Blood Culture, Second Order STATUS:Auth (Verified) BODY SITE: SOURCE:Blood COLLECTED DATE/TIME:05/14/19 6:25 PM Blood Culture, Second Order SPECIMEN DESCRIPTION : BLOOD RAC SPECIAL REQUESTS : NONE CULTURE : NO GROWTH 5 DAYS. REPORT STATUS : FINAL 05/19/2019 TEST:Blood Culture STATUS:Auth (Verified) BODY SITE: SOURCE:Blood COLLECTED DATE/TIME:05/14/19 6:00 PM Blood Culture SPECIMEN DESCRIPTION : BLOOD LAC SPECIAL REQUESTS : NONE CULTURE : NO GROWTH 5 DAYS. REPORT STATUS : FINAL 05/19/2019 Radiology Reports * Exam Date Time Procedure Performing Provider Status 05/14/19 6:54 PM Chest Portable Tiana Castillo; Auth (V erified) Notes: (Chest Portable) Reason For Exam: Shortness of Breath RESULT: Chest Portable Chest Portable ap upright at 1847 hours Reason: Shortness of Breath; Clinical Question(s): CHF; Hx of Present Illness: SOB ?Flu; Other Objective Findings: Head bobbing, unable to speak in full sentences. Coughing. COMPARISON: 04/28/2019, 02/09/2019 FINDINGS: LINES AND TUBES: None. LUNGS AND PLEURA: Prominent perihilar interstitial markings with mild Jaguar B lines in the mid to lower lungs. Airspace opacity at the left lung base. No definite pleural effusions. No pneumothorax. HEART, MEDIASTINUM AND LORENE: Heart is normal in size. Normal mediastinal and hilar contour. BONES AND SOFT TISSUES: No acute abnormality. IMPRESSION: Mild pulmonary edema pattern. WSN: [id number] Dictated By: Tad Reyes DO Dictated Date/Time: 05/14/19 6:59 pm Reviewed By: Tad Reyes DO Signed By: Tad Reyes DO Signed Date/Time: 05/14/19 6:59 pm Transcribed By: BENITO Transcribed Date/Time: 05/14/19 6:58 pm Vital Signs Most recent to oldest [Reference Range]: 1 2 3 Height 175 cm (05/22/19 5:10 PM) 175 cm (05/22/19 11:49 AM) 175 cm (05/22/19 9:52 AM) Weight 70.8 kg (05/22/19 5:42 AM) 70.7 kg (05/21/19 6:15 AM) 71.0 kg (05/20/19 6:29 AM) Oxygen Saturation [94-100 %] 93 % *L* (05/22/19 5:10 PM) 93 % *L* (05/22/19 11:49 AM) 92 % *L* (05/22/19 9:52 AM) Pulse Rate [55-90 bpm] 107 bpm *H* (05/22/19 5:10 PM) 67 bpm (05/22/19 11:49 AM) 98 bpm *H* (05/22/19 9:52 AM) Body Mass Index [18.5-24.99] 23.12 (05/22/19 5:42 AM) 23.09 (05/21/19 6:15 AM) 23.18 (05/20/19 6:29 AM) Blood Pressure [90-138/55-84 mm Hg] 105/69mm Hg (05/22/19 5:10 PM) 109/65mm Hg (05/22/19 11:49 AM) 106/64mm Hg (05/22/19 9:52 AM) Respiratory Rate [16-30 br/min] 18 br/min (05/22/19 5:10 PM) 16 br/min (05/22/19 11:49 AM) 20 br/min (05/22/19 9:52 AM) Temperature [96.8-100.4 DegF] 97.8 DegF (05/22/19 5:10 PM) 98.1 DegF (05/22/19 11:49 AM) 97.4 DegF (05/22/19 9:52 AM) Liters per Minute 2 L/min (05/22/19 11:49 AM) 3 L/min (05/22/19 9:52 AM) 2 L/min (05/22/19 5:42 AM) Mode of Delivery (Oxygen) Room air (05/22/19 5:10 PM) Nasal cannula (05/22/19 11:49 AM) Nasal cannula (05/22/19 9:52 AM) Blood pressure sites Arm, right (05/22/19 5:10 PM) Arm, right (05/22/19 11:49 AM) Arm, right (05/22/19 9:52 AM) Temperature Route Oral (05/22/19 5:10 PM) Oral (05/22/19 11:49 AM) Oral (05/22/19 9:52 AM) Dry Weight 71.8 kg (05/15/19 4:27 AM) Weight Obtained Via Bed scale (05/22/19 5:42 AM) Bed scale (05/21/19 6:15 AM) Bed scale (05/20/19 6:29 AM) Dry Weight Obtained Via Bed scale (05/15/19 4:27 AM) Sensory deficits None (05/15/19 4:27 AM) Mobility assistance Independent (05/15/19 4:27 AM) Social History Social History Type Response Smoking Status Former smoker; Type: Cigarettes; Other: Quit 2014; Number of years: 40; entered on: 06/11/16 Sex
[2022-11-22 19:45] LABS: Basophils Percent Auto 0.2 % (0-2); Eosinophils Absolute Auto 0.1 X10*3/uL (0.0-0.4); Eosinophils Percent Auto 1.1 % (0-4); Hematocrit 39.9 % (42.0-52.0); Imm Gran Abs Auto 0.06 X10*3/uL (0.00-0.03); Imm Gran Pct Auto 0.5 % (0.0-0.4); Lymphocytes Absolute Auto 1.6 X10*3/uL (1.2-4.9); Lymphocytes Percent Auto 12.9 % (20-40); MANUAL DIFF FLAG SCAN; Mean Corpuscular HGB Conc 32.6 g/dl (31.0-36.0); Mean Corpuscular Hemoglobin 29.7 pg (27.0-33.0); Mean Corpuscular Volume 91.1 fL (80.0-98.0); Monocytes Percent Auto 16.2 % (2-11); Neutrophils Absolute Auto 8.7 x10*3/uL (2.0-8.3); Neutrophils Percent Auto 69.1 % (45-73); Platelet Count 214 X10*3/uL (160-400); Red Blood Count 4.38 X10*6/uL (4.60-5.80); Red Cell Distribution Width 14.6 % (11.0-16.0); SCAN SMEAR FLAG 1; White Blood Count 12.6 X10*3/uL (4.8-10.8)
[2022-11-22 20:06] LABS: Alanine Aminotransferase 19 U/L (0-40); Albumin Level 3.7 g/dL (3.5-5.0); Alkaline Phosphatase 68 U/L (39-117); Anion Gap 13 (12-20); Aspartate Amino Transferase 11 U/L (5-37); Bilirubin Direct 0.1 mg/dL (0.0-0.5); Bilirubin Total 0.3 mg/dL (0.0-1.0); Blood Urea Nitrogen 27 mg/dL (9-16); Calcium 9.6 mg/dL (8.4-10.2); Carbon Dioxide 25 mmol/L (22-29); Chloride 105 mmol/L (96-108); Creatinine Clr Calc Pharmacy 71.1; Estimated Glomerular Filt Rate > 60; Glucose Random 113 mg/dL (60-115); Lipase 21 U/L (8-78); Potassium 4.7 mmol/L (3.3-5.1); Sodium 138 mmol/L (135-145); Total Protein 6.5 g/dL (6.5-8.0)
[2022-11-22 20:18] VITALS: PULSE 90; RESP 24; TEMP 36.7; O2SAT 93
[2022-11-22 20:26] LABS: SLIDE REVIEW VERIFIED
[2022-11-22] MEDS: Morphine Sulfate 4 MG/ML CARTRIDGE IVPUSH (21:10)
--- NOTE | 2022-11-22 21:18 | PC.NURSE ---
20g IV placed in LAC
[2022-11-22] MEDS: iohexoL 350 MG/ML 100 ML INFUS..BTL IV (22:04)
--- NOTE | 2022-11-22 23:08 | ED_ITS ---
HPI - Abdominal Pain General Chief Complaint: Abdominal Pain Stated Complaint: ABD PAIN SOB HX OF COPD Source: patient Mode of arrival: ambulatory Limitations: no limitations History of Present Illness HPI narrative: Patient comes in the emergency room complaining of abdominal pain. Patient denies any nausea vomiting diarrhea, no fever chills, no URI or UTI symptoms. Patient was seen [address] Suero for a 4.5 cm AAA, and was told that if he had any abdominal pain to come to the emergency room so he came today. Even for his office visit December Nimo does, patient already had abdominal pain, Dr. Suero does not believe that the pain is secondary to the AAA. Related Data Home Medications Medication Instructions Recorded Confirmed albuterol sulfate 90 mcg/actuation 2 puff inhalation Q6H PRN 11/08/22 11/08/22 aerosol inhaler (Ventolin HFA) Shortness Of Breath Or Wheezing aspirin 81 mg tablet,delayed 81 mg PO DAILY 11/08/22 11/08/22 release azithromycin 500 mg tablet 500 mg PO MOWEFR@0900 11/08/22 11/08/22 clopidogrel 75 mg tablet 75 mg PO DAILY 11/08/22 11/08/22 fluticasone fur. 100 mcg-umeclid 1 ea inhalation DAILY 11/08/22 11/08/22 62.5 mcg-vilant 25 mcg inhalat.powder (Trelegy Ellipta) Previous Rx's Medication Instructions Recorded guaifenesin 600 mg tablet, 600 mg PO Q12H #20 tabs 11/14/22 extended release 12 hr (Mucinex) levofloxacin 500 mg tablet 500 mg PO DAILY #5 tabs 11/14/22 nebulizers #1 ea 11/14/22 prednisone 20 mg tablet 40 mg PO DAILY #8 tabs 11/14/22 azithromycin 250 mg tablet 250 mg PO DAILY 5 days #5 tabs 11/22/22 oxycodone 5 mg tablet 5 mg PO BID PRN pain #6 tabs 11/22/22 polyethylene glycol 3350 17 17 g PO DAILY PRN laxative effect 11/22/22 gram/dose oral powder (Miralax) #119 grams Allergies Allergy/AdvReac Type Severity Reaction Status Date / Time No Known Allergies Allergy Verified 11/08/22 08:02 Review of Systems Review of Systems Constitutional : No Weight loss, No Fever, No Chills, No Night Sweats, No Fa tigue, No Malaise ENT/Mouth : No Hearing loss, No Ear Pain, No Nasal Congestion, No Sinus Pain, No Hoarseness, No sore throat, No Rhinorrhea, No Swallowing Difficulty Eyes: No Eye Pain, No Swelling, No Redness, No Foreign Body, No Discharge, No Vision Changes Cardiovascular : No Chest Pain, No SOB, No Dyspnea on Exertion, No Orthopnea, No Edema, No Palpitations Respiratory : No Cough, No Sputum, No Wheezing, No Smoke Exposure, No Dyspnea Gastrointestinal : No Nausea, No Vomiting, No Diarrhea, No Constipation, a paraumbilical pain, No Hematochezia, No Melena Genitourinary : no irregular bleeding, No Dysuria, No Urinary Frequency, No Hematuria, No Urinary Incontinence, No Urgency, No Flank Pain, No Urinary Flow Changes, No Hesitancy Musculoskeletal : No joint pain, No Myalgias, No Joint Swelling Skin : No Skin Lesions, No rash Neuro : No Weakness, No Numbness, No Paresthesias, No Loss of Consciousness, No Dizziness, No Headache Psych : No Anxiety/Panic, No Depression, No SI/HI/AH/VH, No Social Issues, Heme/Lymph: No Bruising, No Bleeding,No Lymphadenopathy Endocrine : No Polyuria, No Polydipsia, No Temperature Intolerance [facility] Past Medical History Medical History AAA (abdominal aortic aneurysm) without rupture Emphysema lung Mucus plugging of bronchi PAD (peripheral artery disease) Social History Social History Household Members: Spouse Housing: House Do you presently have visiting nurse or other home services: No Alcohol intake: current Alcohol intake frequency: holidays/special occasions only Patient Tobacco Use Status: Former Tobacco user Smoked in Last 30 Days: No Use of substances other than those prescribed or required for medical reasons: No Advance Directives: No Advance Directives Information Provided: No service: No Physical Exam ED Vital Signs: Vital Signs - 24 hr 11/22/22 19:05 11/22/22 19:13 11/22/22 19:24 Temperature 98.1 F 98.1 F Pulse Rate 99 107 H Respiratory Rate 21 H 17 22 H Blood Pressure 140/82 H 140/82 H Pulse Oximetry 95 95 Oxygen Delivery Method Nasal Cannula Nasal Cannula Oxygen Flow Rate 2 11/22/22 20:18 Temperature 98.1 F Pulse Rate 90 Respiratory Rate 24 H Blood Pressure Pulse Oximetry 93 Oxygen Delivery Method Room Air Oxygen Flow Rate BMI result Body Mass Index 24.1 Const Other: Appearance: Alert. Oriented X3. No acute distress. Well-appearing Eyes: Pupils equal, round and reactive to light. ENT: Pharynx normal. Neck: Normal inspection. Neck supple. No lymph nodes noted. No crepitus CVS: Normal heart rate and rhythm. Pulses normal. Normal S1 and S2 Respiratory: No respiratory distress. Breath sounds normal. Chronic wheezing, on 2 L of oxygen at baseline Abdomen: Soft and nontender. No rigidity. No distention. Patient does not have a palpable abdominal pulsatile mass Skin: Skin warm and dry. Normal skin color. Normal skin turgor. Extremities: No lower extremity edema. No Lacerations. No Rash Neuro: Oriented X 3. No motor deficit. No sensory deficit. Moving all extremities. No slurred speech. CN 2 through 12 grossly intact Psych: calm, cooperative, normal affect Medical Decision Making Medical Decision Making [facility] Narrative: -patient was recently seen for a AAA, rupture was suspected, admission/transfer considered -fortunately, patient is fairly well appearing, no significant abdominal pain on palpation, vital stable -interpretation of CT scan: No rupture, no acute finding -patient's white blood cell count 12.6, likely reactive leukocytosis. Chemistry remarkable -my interpretation of EKG: Normal cellular rhythm, heart rate 100, no ST segment depression or elevation, no T-wave inversion, QTC 430, patient does not have any chest pain at all -patient's is also atelectasis versus infiltrate in the lower lobes. Patient states he his respiratory status is at baseline. However, in triage patient mentioned that he is using his neb treatments more often than usual, we will go ahead and treat with antibiotics. Patient finished a course of Levaquin 3 days ago Differential Diagnosis Differential Diagnoses: The differential diagnosis associated with the presentation includes (Ruptured AAA, SBO, intestine perforation) Admission/Observation Consideration of admission/observation: Escalation of care including admission/observation considered (As mentioned above) Lab Data [facility] Lab Attestation statement: I reviewed the patient's lab results. 11/22/22 19:38 11/22/22 19:38 Labs: Lab Results 11/22/22 11/22/22 Range/Units 19:38 19:38 WBC 12.6 H (4.8-10.8) X10*3/uL RBC 4.38 L (4.60-5.80) X10*6/uL Hgb 13.0 L (14.0-18.0) g/dl Hct 39.9 L (42.0-52.0) % MCV 91.1 (80.0-98.0) fL MCH 29.7 (27.0-33.0) pg MCHC 32.6 (31.0-36.0) g/dl RDW 14.6 (11.0-16.0) % Plt Count 214 (160-400) X10*3/uL MPV 10.0 (9.4-12.4) fL Immature Gran % (Auto) 0.5 H (0.0-0.4) % Neut % (Auto) 69.1 (45-73) % Lymph % (Auto) 12.9 L (20-40) % [place] % (Auto) 16.2 H (2-11) % Eos % (Auto) 1.1 (0-4) % Baso % (Auto) 0.2 (0-2) % Lymph # (Auto) 1.6 (1.2-4.9) X10*3/uL [place] # (Auto) 2.0 H (0.1-1.2) X10*3/uL Eos # (Auto) 0.1 (0.0-0.4) X10*3/uL Baso # (Auto) 0.0 (0.0-0.2) X10*3/uL Abs Immat Gran (auto) 0.06 H (0.00-0.03) X10*3/uL Absolute Neuts (auto) 8.7 H (2.0-8.3) x10*3/uL Absolute Nucleated RBC 0.000 (0.0-0.012) X10*3/uL Nucleated RBC % (auto) 0.0 (0.0-0.2) /100WBC Smear Tech's Comments VERIFIED Sodium 138 (135-145) mmol/L Potassium 4.7 D (3.3-5.1) mmol/L Chloride 105 (96-108) mmol/L Carbon Dioxide 25 (22-29) mmol/L Anion Gap 13 (12-20) BUN 27 H (9-16) mg/dL Creatinine 0.87 (0.5-1.4) mg/dL Estim Creat Clear Calc 71.1 Estimated GFR > 60 Random Glucose 113 (60-115) mg/dL Calcium 9.6 D (8.4-10.2) mg/dL Total Bilirubin 0.3 (0.0-1.0) mg/dL Direct Bilirubin 0.1 (0.0-0.5) mg/dL AST 11 (5-37) U/L ALT 19 (0-40) U/L Alkaline Phosphatase 68 (39-117) U/L Total Protein 6.5 (6.5-8.0) g/dL Albumin 3.7 (3.5-5.0) g/dL Lipase 21 (8-78) U/L Independent Interpretation I performed an independent interpretation of an: CT Scan Radiology Impression Discussion of test interpretation with radiology: I have reviewed the radiologist's reading. Radiologist Impression: FINDINGS: LUNG BASES: There is significant emphysematous changes in the visualized lung bases. There is diffuse bronchial wall thickening with some areas of mucous plugging. Left base atelectasis versus infiltrate LIVER, GALLBLADDER, AND BILIARY TREE: The liver is normal in size and contour. Multiple hepatic cysts are visualized. There is no intrahepatic biliary ductal dilatation. There is cholelithiasis. No gallbladder wall thickening.? PANCREAS: Unremarkable.? SPLEEN: Unremarkable.? ADRENAL GLANDS: Unremarkable.? KIDNEYS AND URETERS: No hydronephrosis or renal calculi. There are bilateral simple fluid attenuation cyst that do not require imaging follow-up.? BLADDER: Unremarkable.? GASTROINTESTINAL TRACT: Small hiatal hernia. There is no bowel obstruction. The appendix is normal.? ABDOMINAL WALL: No significant hernia is appreciated.? LYMPH NODES: Normal. VASCULAR: Stable aneurysmal dilatation of the infrarenal abdominal aortic aneurysm measuring 4.5 x 4.0 cm. Atherosclerotic calcification throughout the iliac vessels. PELVIC VISCERA: The prostate and seminal vesicles are unremarkable.? OSSEOUS STRUCTURES: Degenerative disc disease in the lower lumbar spine.? CT/CT abdomen pelvis w IV con IMPRESSION: 1.? No acute abnormality in the abdomen or pelvis. 2. Stable infrarenal abdominal aortic aneurysm measuring 4.5 cm. Recommend followup every 6 months and vascular specialist consultation. Reference: J Am Ricarda Radiol 2013; 10 (10): 789-794. 3.? Cholelithiasis. 4.? Significant emphysematous changes in the visualized lung bases. There is diffuse bronchial wall thickening with some areas of mucous plugging. Left base atelectasis versus infiltrate. ? Medications Administered Discontinued Medications Generic Name Dose Route Start Last Admin Trade Name Freq PRN Reason Stop Dose Admin Iohexol 100 ml 11/22/22 22:04 11/22/22 22:04 Iohexol 350 Mg/Ml 100 Ml Infus..Btl IV 11/22/22 22:05 85 ml ONCE ONE Administration Morphine Sulfate 4 mg 11/22/22 20:55 11/22/22 21:10 Morphine Sulfate 4 Mg/Ml Cartridge IVPUSH 11/22/22 20:56 4 mg ONCE ONE Administration Protocol Critical Care Time Critical Care Time Critical Care Time: Yes Total Critical Care Time: 60 Attestation: I have personally provided critical care time. Time includes review of lab data, radiology results, discussion with consultants, and monitoring for potential decompensation. Intervention performed as documented. Discharge Plan Discharge Clinical Impression: Abdominal pain Patient Disposition: Home, Self-Care Instructions: Abdominal Pain (ED) Additional Instructions: Please follow-up with your primary care physician tomorrow. If you have any worsening or new symptoms, please return to the emergency room or call 911 Prescriptions: New azithromycin 250 mg tablet 250 mg PO DAILY 5 Days Qty: 5 0RF oxycodone 5 mg tablet 5 mg PO BID PRN (Reason: pain) Qty: 6 0RF Rx Instructions: Partial Fill upon patient request. polyethylene glycol 3350 [Miralax] 17 gram/dose powder 17 g PO DAILY PRN (Reason: laxative effect) Qty: 119 0RF No Action clopidogrel 75 mg tablet 75 mg PO DAILY albuterol sulfate [Ventolin HFA] 90 mcg/actuation HFA aerosol inhaler 2 puff inhalation Q6H PRN (Reason: Shortness Of Breath Or Wheezing) azithromycin 500 mg tablet 500 mg PO MOWEFR@0900 Hold Instructions: Resume on 11/21/22. Trelegy Ellipta 100-62.5-25 mcg blister with device 1 ea inhalation DAILY aspirin 81 mg Tablet,Delayed Release (Dr/Ec) 81 mg PO DAILY levofloxacin 500 mg tablet 500 mg PO DAILY Qty: 5 0RF prednisone 20 mg tablet 40 mg PO DAILY Qty: 8 0RF guaifenesin [Mucinex] 600 mg tablet extended release 12hr 600 mg PO Q12H Qty: 20 0RF (DME) nebulizers Misc See Rx Instructions .Route Qty: 1 0RF Rx Instructions: As directed
[2022-11-22] MEDS: oxyCODONE HCl Immed Release 5 MG TABLET PO (23:23)
[2022-11-22 23:45] VITALS: BP 105/62; PULSE 85; RESP 15; TEMP 37.1; O2SAT 96
== END 2022-11-22 23:53 | disposition home or self-care (01) ==
PROVIDERS: Emergency Provider Emergency Medicine; PCP Internal Medicine
DX: R10.9 Unspecified abdominal pain (principal); Z87.891 Personal history of nicotine dependence; Z79.899 Other long term (current) drug therapy; Z79.82 Long term (current) use of aspirin
CPT/HCPCS: 36415; 74177; 80053; 82248; 83690; 85025; 93005; 96374; 99284; 99285; J2270; Q9967

== ENCOUNTER 2022-12-20 08:48 | Outpatient (AMB) | payer MEDICARE, OTHER, SELFPAY ==
--- NOTE | 2022-12-20 09:04 | A.OFFVIS_ITS ---
Intake Vital Signs 12/20/22 09:06 Height 5 ft 9 in Weight 158 lb BMI 23.3 Intake Visit Reasons: Follow Up AAA Intake Note: HOspital follow up AAA 4.5cm and Hx of Left LE Angio/stent placement by Dr. Arreola many years ago. Pt states he still has some discomfort in abdomen and it feels warm, but better than it did in the hospital. Pt is on oxygen Accompanied by: Spouse Allergies No Known Allergies Allergy (Verified 12/20/22 09:08) HPI Follow Up AAA HPI Details Complex 77-year-old gentleman presents for hospital follow-up regarding abdominal aortic aneurysm. He was originally admitted to the hospital for COPD exacerbation and upon workup on CT scan was discovered to have an abdominal aortic aneurysm. He has been asymptomatic in terms of his aneurysm. Continues to have issues with his COPD. At the current time he is oxygen dependent. He has difficulty ambulating 100 yd. He now presents to us for vascular evaluation. Of note he did have prior left lower extremity stenting performed by many years ago COUNTS INCLUDE 234 BEDS AT THE [facility] Medical History (Updated 12/20/22 @ 10:27 by Horace Suero MD) PAD (peripheral artery disease) AAA (abdominal aortic aneurysm) without rupture Mucus plugging of bronchi Emphysema lung Social History Household Members: Spouse Housing: House Do you presently have visiting nurse or other home services: No Alcohol intake: current Alcohol intake frequency: holidays/special occasions only Patient Tobacco Use Status: Former Tobacco user service: No Review of Systems Const All systems reviewed & are unremarkable except as noted in HPI and below Reports no additional complaints ENT Reports Normal hearing present Card Denies chest pain, Denies chest pain at rest, Denies chest pain with activity, Denies pedal edema and Reports dyspnea Resp Reports chest congestion, Reports cough and Reports dyspnea GI Denies abdominal pain Musc Denies abnormal gait, Denies muscle cramps and Denies radiating pain into limb Skin/Breast Denies skin ulcer and Denies wounds Neuro Reports Normal hearing present and Denies abnormal gait Psych Reports no additional complaints Physical Exam Vital Signs: BMI result Body Mass Index 23.3 Const General: cooperative, healthy appearing and comfortable Orientation/consciousness: oriented to person, oriented to place and oriented to time HEENT Head: Yes normal to inspection Neck Neck: Yes normal visual inspection Carotids: no bruits Chest Other: Inspiratory and expiratory wheezes, productive cough Resp Effort & Inspection: normal respiratory effort and able to speak in complete se ntences Auscultation: clear to auscultation bilaterally, no crackles, no rales, no rhonchi and no wheezes Cardio Other: Bilateral DP signals Rate: regular rate Rhythm: regular rhythm Heart sounds: S1 normal heart sound present and S2 normal heart sound present Bruits: no carotid bruits Peripheral pulses: Peripheral pulses 2+ throughout GI Inspection: Yes normal to inspection Skin Wounds: no wounds Hair: normal Neuro General: oriented to person, oriented to place and oriented to time Cranial nerves: Yes CN's II-XII intact bilaterally and Yes Normal hearing present Cognition (Neuro): normal cognition Motor exam (neuro): 5/5 motor strength present throughout Extrem Other: venous exam: No significant superficial varicosities or spider telangiectasias, minimal edema General: No clubbing, No cyanosis and No edema Psych Appearance: grossly normal Mental Status: mental status grossly normal Speech and movement: Normal speech and movement present Results Reviewed Results Reviewed: CT scan dated 11/22/2022 demonstrates aortic aneurysm of 4.5 cm. Written report and images were reviewed. Assessment & Plan Assessment & Plan (1) AAA (abdominal aortic aneurysm) without rupture: Code(s): I71.40 - Abdominal aortic aneurysm, without rupture, unspecified Plan: In short patient has radiologic evidence of a AAA on CT scan of 4.5 cm. We have discussed the pathophysiology of aortic aneurysms and the risk of ruptures. We have discussed rupture risk based on size. In addition we have discussed conservative measures and risk factor modification for prevention of increase in size of the aneurysm. the patient is scheduled for surveillance follow-up in approximately 6 months. This will be scheduled on his next follow-up visit for his arterial disease Thank you for allowing us to participate in the care of this patient (2) PAD (peripheral artery disease): Code(s): I73.9 - Peripheral vascular disease, unspecified Plan: He complains of difficulty ambulating. In addition he has not had surveillance follow-up of his previous stenting. We will obtain noninvasive testing. Unfortunately he has significant pulmonary issues. He does have a pulmonary follow-up scheduled for next week. I will get a baseline arterial study but would like to manage him as conservatively as possible as I do not feel that he is a candidate for any major surgical intervention. We will continue to follow his status with you. Thank you for allowing us to assist in his care Orders: Orders US arterial duplex LE BI 1 Week I73.9 - Peripheral vascular disease, unspecified Coding Level of Care Code Est Pt Level 4 (47854) Diagnoses AAA (abdominal aortic aneurysm) without rupture I71.40 PAD (peripheral artery disease) I73.9
[2022-12-20 09:06] VITALS: BMI 23.3
== END 2022-12-20 09:29 | disposition home or self-care (01) ==
PROVIDERS: PCP Internal Medicine; Visit Provider Surgery Vascular Surgery
DX: I71.40 Abdominal aortic aneurysm, without rupture, unspecified (principal); I73.9 Peripheral vascular disease, unspecified
CPT/HCPCS: 99214

== ENCOUNTER → 2022-12-20 08:48 | Outpatient (BNVA) | payer MEDICARE, OTHER, SELFPAY | PROVIDERS: PCP Internal Medicine; Visit Provider Surgery Vascular Surgery | DX: I71.40 Abdominal aortic aneurysm, without rupture, unspecified (principal); I73.9 Peripheral vascular disease, unspecified | CPT/HCPCS: 99212 ==

== ENCOUNTER 2023-01-02 14:13 | Outpatient (AMB) | payer MEDICARE, SELFPAY ==
--- NOTE | 2023-01-02 14:24 | MHC.OFFVIS ---
Intake Vital Signs 01/02/23 14:25 Height 5 ft 9 in Weight 158 lb BMI 23.3 BP 140/80 H Blood Pressure Location Lt brachial Position Sitting Pulse 84 Pulse Source Pulse Oximeter Pulse Oximetry (%) 94 Oxygen Delivery Method Nasal Cannula Oxygen Flow Rate 3 Intake Visit Reasons: Emphysema Intake Note: pt is here as a new patient for post hospital follow up and possible bronchoscopy for mucous plug. He coughs and it comes up to middle of chest and stays and it is painful to cough. Using oxygen 24 hours, nightime O2 on 2 liters and only 3 liters when walking long distance. [employer] Required: No Allergies No Known Allergies Allergy (Verified 01/02/23 15:30) Medication List - Last Reconciled 01/02/23 by Valerie Geronimo MD albuterol sulfate 90 mcg/actuation (Ventolin HFA) 2 puffs inhalation Q6H PRN aspirin 81 mg PO DAILY azithromycin 500 mg PO MOWEFR@0900 clopidogrel 75 mg PO DAILY mdchlkzkmrr-jegvmueqc-kbkgoozm 100-62.5-25 mcg (Trelegy Ellipta) 1 ea inhalation DAILY guaifenesin ER (Mucinex) 600 mg PO Q12H nebulizers As directed polyethylene glycol 3350 (Miralax) 17 grams PO DAILY PRN Do you need a note to return to daycare/school/sports/work: No HPI Emphysema HPI Details THIS 77 YEARS OLD GENTLEMAN IS HERE FOR PULMONARY FOLLOW-UP. HE WAS ADMITTED IN [facility] WITH AN ACUTE EXACERBATION OF COPD IN OCTOBER OF THIS YEAR. CTA OF THE CHEST SHOWED, ADVANCED COPD, WITH AIR TRAPPING, FINDING SUGGESTIVE OF MUCUS PLUGGING OF THE AIRWAYS ESPECIALLY IN RIGHT LOWER LOBE, AND A PATCHY ATELECTASIS IN THE LEFT LOWER LOBE. PATIENT WAS SEEN BY DR. AP MEZA FOR PULMONARY CONSULT. WHO FELT THAT HE WAS A HIGH RISK CASE FOR DOING ANY BRONCHOSCOPIC PROCEDURE AND SUGGESTED TO CONTINUE AGGRESSIVE, TREATMENT FOR MOBILIZING DISCRETIONS. PATIENT WAS TREATED WITH [employer], ON DISCHARGE SENT HOME WITH A COURSE OF LEVAQUIN FOR 1 WEEK. AFTER THAT HE HAS CONTINUE TO TAKE AZITHROMYCIN 500 MG 3 DAYS A WEEK . PATIENT HAS BEEN USING O2 2 L/MINUTE CONTINUOUSLY AND WHEN OUTDOORS WALKING AROUND HE INCREASES TO 3 L/MINUTE. HE IS ON TRELEGY 1 INHALATION DAILY, HAS THE NEBULIZER AT HOME AND SUPPOSED TO USE Q 6 HOURS , P.R.N. AND HE HAS BEEN USING ONLY ONCE OR TWICE A DAY. PATIENT DOES HAVE INCENTIVE SPIROMETRY DEVICE WELL ACAPELA VALVE . AT HOME HE CONTINUES TO BE SHORT OF BREATH ON WALKING AROUND. CONTINUES TO HAVE MILD INTERMITTENT COUGH , NOT ABLE TO BRING UP MUCH MUCUS, HE DOES SLEEP FAIRLY WELL AT NIGHT.. Objective Data [facility] Medical History (Updated 01/02/23 @ 15:50 by Valerie Geronimo MD) Respiratory failure with hypoxia COPD (chronic obstructive pulmonary disease) Mucus plugging of bronchi PAD (peripheral artery disease) AAA (abdominal aortic aneurysm) without rupture Emphysema lung Social History Household Members: Spouse Housing: House Do you presently have visiting nurse or other home services: No Alcohol intake: current Alcohol intake frequency: holidays/special occasions only Patient Tobacco Use Status: Former Tobacco user service: No Review of Systems Const All systems reviewed & are unremarkable except as noted in HPI and below Eyes Reports no additional complaints ENT Reports no additional complaints Card Denies chest pain, Denies irregular heart rhythm, Denies leg edema and Reports dyspnea on exertion Resp Reports as per HPI and Reports dyspnea on exertion GI Reports constipation and Reports dyspepsia Reports no additional complaints Musc Reports other (GENERAL WEAKNESS) Skin/Breast Reports system reviewed and no additional complaints, except as documented Neuro Reports no additional complaints Psych Reports no additional complaints Physical Exam Vital Signs: Last Vital Signs Pulse 84 01/02/23 14:25 BP 140/80 H 01/02/23 14:25 Pulse Ox 94 01/02/23 14:25 Oxygen Delivery Method Nasal Cannula 01/02/23 14:25 Oxygen Flow Rate 3 01/02/23 14:25 BMI result Body Mass Index 23.3 Const General: comfortable (Except for shortness of breath during conversation), no acute distress, alert and awake Orientation/consciousness: patient oriented x3 HEENT Head: Yes normal to inspection General nose exam: No nasal polyps present and No nasal discharge present Face and sinus: Yes sinuses nontender Mouth: oropharynx normal Teeth and gingiva: edentulous Throat: Yes posterior oropharynx normal Eyes General: appearance normal, both eyes and all related structures Neck Neck: Yes normal visual inspection, Yes no lymphadenopathy, Yes trachea midline and Yes no JVD Thyroid: Thyroid normal Chest Chest palpation & inspection: normal inspection of the chest, normal palpation of entire chest wall and no tenderness Resp Other: PERCUSSION NOTE IS RESONANT, BREATH SOUNDS ARE VERY DISTANT WITH PROLONGED EXPIRATORY PHASE. NO WHEEZES OR CREPITATIONS ARE HEARD TODAY. Cardio Palpation: normal PMI Rate: regular rate Rhythm: regular rhythm Heart sounds: no gallops and no murmurs GI Palpation (GI): Soft to palpation, nontender, No hepatosplenomegaly present and no masses Auscultation: normal bowel sounds Back/Spine/Pelvis Thoracic/Lumbar Spine: thoracic and lumbar spine normal to inspection and thoraco-lumbar ROM limited Skin General skin exam: no rashes or lesions noted Neuro General: patient oriented x3 and no focal motor deficits Cranial nerves: Yes CN's II-XII intact bilaterally Extrem General: Yes normal to inspection, Yes no clubbing, cyanosis or edema and Yes no calf tenderness Psych Other: POOR GENERAL HYGIENE Appearance: disheveled Mental Status: mental status grossly normal Speech and movement: Normal speech and movement present Results Reviewed Results Reviewed: HOSPITAL COURSE OF HIS ADMISSION IN OCTOBER 2022. IS REVIEWED. Assessment & Plan Assessment & Plan (1) COPD (chronic obstructive pulmonary disease): Comment: PATIENT HAS ADVANCED CHRONIC OBSTRUCTIVE PULMONARY DISEASE. HE IS PRONE TO HAVE RECURRENT RESPIRATORY INFECTIONS. RECENTLY TREATED FOR AN ACUTE EXACERBATION, IN THE HOSPITAL. NOW HE SEEMS TO BE AT HIS BASELINE, BUT HAS SIGNIFICANT RESPIRATORY IMPAIRMENT. TX : TRELEGY ELLIPTA 1 INHALATION DAILY. IPRATROPIUM- ALBUTEROL INHALATION SOLUTION IN THE NEBULIZER Q 6 HOURS WHILE AWAKE ( AT LEAST 3 TIMES A DAY ) Code(s): J44.9 - Chronic obstructive pulmonary disease, unspecified (2) Respiratory failure with hypoxia: Comment: O2 2 L/MINUTE AT REST AND 3 L/MINUTE WHEN OUTDOORS OR WALKING AROUND. USE O2 AT NIGHT WELL. Code(s): J96.91 - Respiratory failure, unspecified with hypoxia (3) Mucus plugging of bronchi: Comment: PER CT SCAN, HE WAS FOUND TO HAVE MUCUS PLUGGING OF THE BRONCHI IN THE LOWER LOBES ESPECIALLY IN RIGHT LOWER LOBE. HE IS A HIGH RISK FOR BRONCHOSCOPY. TREATMENT WITH THE FOLLOWING MEASURES IS TO CONTINUE : USE DUONEB UPDRAFT AT LEAST 3 TIMES A DAY. PLENTY OF FLUIDS. INCENTIVE SPIROMETRY Q.2 HOURS WHILE AWAKE. VIBRATORY RESPIRATORY EXERCISES ( WITH ACAPELA VALVE ) Q 2 HOURS WHILE AWAKE. Code(s): T17.500A - Unspecified foreign body in bronchus causing asphyxiation, initial encounter Medications: New ipratropium-albuterol 0.5 mg-3 mg(2.5 mg base)/3 mL 3 mL inhalation QID 30 days PRN 360 mL 2RF wheezing/MUCOUS PLUGGING Coding Level of Care Code Est Pt Level 4 (85395) Diagnoses COPD (chronic obstructive pulmonary disease) J44.9 Respiratory failure with hypoxia J96.91 Mucus plugging of bronchi T17.500A
[2023-01-02 14:25] VITALS: BP 140/80; PULSE 84; O2SAT 94; BMI 23.3
== END 2023-01-02 14:59 | disposition home or self-care (01) ==
PROVIDERS: PCP Internal Medicine; Referring Provider Internal Medicine; Visit Provider Internal Medicine
DX: J44.9 Chronic obstructive pulmonary disease, unspecified (principal); J96.91 Respiratory failure, unspecified with hypoxia; T17.500A Unspecified foreign body in bronchus causing asphyxiation, initial encounter
CPT/HCPCS: 99214

== ENCOUNTER → 2023-01-02 14:13 | Outpatient (BNVA) | payer MEDICARE, SELFPAY | PROVIDERS: PCP Internal Medicine; Visit Provider Internal Medicine | DX: J43.9 Emphysema, unspecified (principal); J96.91 Respiratory failure, unspecified with hypoxia; I73.9 Peripheral vascular disease, unspecified; T17.590A Other foreign object in bronchus causing asphyxiation, initial encounter; Z99.81 Dependence on supplemental oxygen | CPT/HCPCS: 99212 ==

== ENCOUNTER 2023-01-14 12:39 | Outpatient (REF) | payer MEDICARE, SELFPAY ==
--- NOTE | ~2023-01-14 | US_ITS ---
EXAMINATION: ANKLE-BRACHIAL INDICES SINGLE LEVEL PULSE VOLUME RECORDING ARTERIAL DUPLEX BILATERAL LEGS CLINICAL INFORMATION: Peripheral vascular disease. COMPARISON: None TECHNIQUE: Ankle-brachial indices and PVR at the ankle were obtained. Duplex Doppler of the bilateral lower extremity arterial systems was performed. FINDINGS: RIGHT: Ankle-brachial index: 1.11 PVR: Abnormal Diffuse atherosclerotic disease. Common femoral: PSV 160 cm/s. Triphasic waveform. Deep femoral: PSV 139 cm/s. Triphasic waveform. Proximal superficial femoral: PSV 122 cm/s. Biphasic waveform. Mid superficial femoral: PSV 119 cm/s. Biphasic waveform. Distal superficial femoral: PSV 132 cm/s. Triphasic waveform. Popliteal: PSV 76 cm/s. Biphasic waveform. Posterior tibial: PSV 147 cm/s. Triphasic waveform. Peroneal: PSV 52 cm/s. Biphasic waveform. Anterior tibial: PSV 26 cm/s. Biphasic waveform. Dorsalis pedis: PSV 21 cm/s. Triphasic waveform. LEFT: Ankle-brachial index: 1.00 PVR: Abnormal Diffuse atherosclerotic disease. Common femoral: PSV 124 cm/s. Triphasic waveform. Deep femoral: PSV 120 cm/s. Triphasic waveform. Long SFA stent: [place] artery proximal to stent: PSV 108 cm/s. Biphasic waveform. Proximal stent: PSV 118 cm/s. Biphasic waveform. Mid stent: PSV 71 cm/s. Biphasic waveform. The stent appears focally incompletely expanded probably due to external calcified atherosclerosis. Distal stent: PSV 81 cm/s. Biphasic waveform. [place] artery distal to stent: PSV 124 cm/s. Biphasic waveform. Popliteal: PSV 74 cm/s. Biphasic waveform. Posterior tibial: PSV 23 cm/s. Biphasic waveform. Peroneal: Not visible. Anterior tibial: PSV 92 cm/s. Biphasic waveform. Dorsalis pedis: PSV 41 cm/s. Biphasic waveform. US/US EFRAÍN complete IMPRESSION: Right lower extremity: Normal EFRAÍN. Abnormal PVR. Diffuse atherosclerotic disease without hemodynamically significant stenosis by Doppler. Left: Normal EFRAÍN. Abnormal PVR. Diffuse atherosclerotic disease with long segment stent in the superficial femoral artery. No evidence of significant stenosis by Doppler. Nonvisualization of the peroneal artery.
--- NOTE | ~2023-01-14 | US_ITS ---
EXAMINATION: ANKLE-BRACHIAL INDICES SINGLE LEVEL PULSE VOLUME RECORDING ARTERIAL DUPLEX BILATERAL LEGS CLINICAL INFORMATION: Peripheral vascular disease. COMPARISON: None TECHNIQUE: Ankle-brachial indices and PVR at the ankle were obtained. Duplex Doppler of the bilateral lower extremity arterial systems was performed. FINDINGS: RIGHT: Ankle-brachial index: 1.11 PVR: Abnormal Diffuse atherosclerotic disease. Common femoral: PSV 160 cm/s. Triphasic waveform. Deep femoral: PSV 139 cm/s. Triphasic waveform. Proximal superficial femoral: PSV 122 cm/s. Biphasic waveform. Mid superficial femoral: PSV 119 cm/s. Biphasic waveform. Distal superficial femoral: PSV 132 cm/s. Triphasic waveform. Popliteal: PSV 76 cm/s. Biphasic waveform. Posterior tibial: PSV 147 cm/s. Triphasic waveform. Peroneal: PSV 52 cm/s. Biphasic waveform. Anterior tibial: PSV 26 cm/s. Biphasic waveform. Dorsalis pedis: PSV 21 cm/s. Triphasic waveform. LEFT: Ankle-brachial index: 1.00 PVR: Abnormal Diffuse atherosclerotic disease. Common femoral: PSV 124 cm/s. Triphasic waveform. Deep femoral: PSV 120 cm/s. Triphasic waveform. Long SFA stent: [place] artery proximal to stent: PSV 108 cm/s. Biphasic waveform. Proximal stent: PSV 118 cm/s. Biphasic waveform. Mid stent: PSV 71 cm/s. Biphasic waveform. The stent appears focally incompletely expanded probably due to external calcified atherosclerosis. Distal stent: PSV 81 cm/s. Biphasic waveform. [place] artery distal to stent: PSV 124 cm/s. Biphasic waveform. Popliteal: PSV 74 cm/s. Biphasic waveform. Posterior tibial: PSV 23 cm/s. Biphasic waveform. Peroneal: Not visible. Anterior tibial: PSV 92 cm/s. Biphasic waveform. Dorsalis pedis: PSV 41 cm/s. Biphasic waveform. US/US arterial duplex LE BI IMPRESSION: Right lower extremity: Normal EFRAÍN. Abnormal PVR. Diffuse atherosclerotic disease without hemodynamically significant stenosis by Doppler. Left: Normal EFRAÍN. Abnormal PVR. Diffuse atherosclerotic disease with long segment stent in the superficial femoral artery. No evidence of significant stenosis by Doppler. Nonvisualization of the peroneal artery.
== END 2023-01-14 12:40 | disposition home or self-care (01) ==
LOC: HO.US 12:39
PROVIDERS: PCP Internal Medicine; Visit Provider Surgery Vascular Surgery
DX: I73.9 Peripheral vascular disease, unspecified (principal)
CPT/HCPCS: 93923; 93925

== ENCOUNTER 2023-01-29 14:10 | Inpatient (IN) | payer MEDICARE, SELFPAY ==
[2023-01-29] VITALS (8 sets, daily range): BP systolic 106–147; BP diastolic 62–82; PULSE 75–120; RESP 16–28; TEMP 37–37.7; O2SAT 90–96; BMI 23.9
--- NOTE | ~2023-01-29 | CT_ITS ---
EXAMINATION: CT ABDOMEN AND PELVIS WITH CONTRAST CLINICAL INFORMATION: Peripheral vascular disease. Abdominal aortic aneurysm. COMPARISON: Previous CT of the abdomen and pelvis October 2022 TECHNIQUE: Multidetector volumetric images were obtained from the superior aspect of the liver through the pubic symphysis following administration 85 mL of Omnipaque 350 intravenous contrast. Sagittal and coronal reformatted images were obtained on the technologist's workstation. Oral contrast: Yes This CT examination was performed using dose optimization techniques as appropriate, variously including the following: *Automated exposure control *Adjustment of mA and/or kV according to patient size (this includes techniques or standardized protocols for targeted exams where dose is matched to indication/reason for exam; i.e. extremities or head) *Use of iterative reconstruction technique DLP: 348 mGy-cm FINDINGS: LUNG BASES: Left lower lobe atelectasis or small infiltrate. This is increased from from October 2022 exam. Focal right lower lobe bronchial wall thickening. LIVER, GALLBLADDER, AND BILIARY TREE: The liver is normal in size, and shape. The liver is slightly low in attenuation suggestive of fatty infiltration. There are multiple liver cysts, largest measuring 4 cm right lobe of the liver. There are gallstones in the gallbladder. There is no intra or extrahepatic biliary duct dilatation. PANCREAS: Unremarkable. SPLEEN: Unremarkable. ADRENAL GLANDS: Unremarkable. KIDNEYS AND URETERS: The kidneys are normal in size, shape, and attenuation. No hydronephrosis, hydroureter, or calculi seen. Bilateral renal cysts. No imaging follow-up recommended. No perinephric stranding. BLADDER: Unremarkable. GASTROINTESTINAL TRACT: The small and large bowel are unremarkable. The appendix is unremarkable. ABDOMINAL WALL: No significant hernia is appreciated. LYMPH NODES: Normal. VASCULAR: Stable lower abdominal aortic arch with thrombosed aneurysm measuring or by 4.5 cm in AP and transverse dimension. PELVIC VISCERA: Unremarkable. OSSEOUS STRUCTURES: Unremarkable. CT/CT abdomen pelvis w IV con IMPRESSION: No acute findings in the abdomen or pelvis. Multiple liver cysts. Gallstones. 4 x 4.5 cm lower abdominal aortic partially thrombosed aneurysm. Abdominal aortic aneurysm follow-up in 6 months recommended. Fleischner guidelines were followed.
--- NOTE | ~2023-01-29 | XR_ITS ---
EXAMINATION: XR CHEST CLINICAL INFORMATION: SOB COMPARISON: Portable chest 11/13/2022 TECHNIQUE: 2 views of the chest were obtained. 15:36 FINDINGS: Scattered linear markings are seen bilaterally without significant change. No acute focal consolidation, interstitial pulmonary edema or pneumothorax. The cardiomediastinal silhouette is within normal limits. There are no pleural effusions. Kyphoplasty is noted in the midthoracic spine XR/XR chest 2V IMPRESSION: No acute cardiopulmonary disease. Chronic appearing scarring/atelectasis with similar distribution and severity
--- NOTE | ~2023-01-29 | CT_ITS ---
EXAMINATION: CT CHEST WITHOUT CONTRAST CLINICAL INFORMATION: Mucous plugging/pneumonia/neoplasm. Shortness of breath. COMPARISON: Chest radiograph done earlier today and CTA of the chest done on 11/08/2022. TECHNIQUE: Multidetector volumetric CT imaging of the chest was done. Axial MIP volume rendering provided. Sagittal and coronal reformatted images were obtained. This CT examination was performed using dose optimization techniques as appropriate, variously including the following: *Automated exposure control *Adjustment of mA and/or kV according to patient size (this includes techniques or standardized protocols for targeted exams where dose is matched to indication/reason for exam; i.e. extremities or head) *Use of iterative reconstruction technique DLP: 289 mGy-cm FINDINGS: LEAD CASHIER: Emphysematous disease predominantly involving both upper lobes and linear pleuroparenchymal opacities at both mid to lower lung field and mild blunting of the right lateral CP angle. Post vertebral augmentation-related changes are noted at lower thoracic spine. LUNGS: Extensive emphysematous disease predominantly involving both upper lobes, similar to prior study. Previously documented peribronchiolar/endobronchial soft tissue opacity at right lower lobe posteromedially appear unchanged (37:4). Previously documented subpleural focal airspace opacity at left lung base posteromedially abutting the left hemidiaphragm currently measures 2.4 x 1.4 cm. In addition, linear pleuroparenchymal disease is noted at both lung bases likely represent superimposed pleuroparenchymal scar, similar to prior study. MEDIASTINUM: There are no pathologically enlarged mediastinal,, hilar or axillary or internal mammary lymphadenopathy. CORONARY ARTERY CALCIFICATION: Significant coronary arterial calcifications, unchanged. PLEURA: There is no pleural effusion. No pleural mass or thickening. AXILLA: No lymphadenopathy. UPPER ABDOMEN: There are multiple discrete circumscribed hypodense lesion seen throughout both lobes of the liver, similar to prior study, most consistent with incidental cysts. Calcified gallstones are present without any CT features of superimposed acute cholecystitis or biliary obstruction. Exophytic left renal cortical cyst is also noted at the superior pole, unchanged. OSSEOUS STRUCTURES: Post vertebral augmentation-related changes are present at T8. Moderate diffuse osteopenia. CT/CT chest wo IV con IMPRESSION: 1. No significant change since most recent prior CT of the chest done on 11/08/2022. 2. Reidentified extensive emphysematous disease predominantly involving both upper lobes. Superimposed indeterminate right lower lobar bronchial/peribronchiolar soft tissue opacity and nonspecific indeterminate soft tissue opacity at left lower lobe of the lung appear unchanged. Differential remains infectious, inflammatory process/mucus plugging as well as neoplasm. 3. Multiple calcified gallstones and numerous stable presumed hepatic cysts. Fleischner guidelines were followed.
--- NOTE | 2023-01-29 14:12 | ED.GENADULT ---
HPI - General Adult General Chief complaint: General Medical Stated complaint: SOB/Abd pain Time Seen by Provider: 01/29/23 15:15 Source: patient and family () History of Present Illness HPI narrative: 77-year-old male comes in with worsening shortness of breath since this morning and subjective fevers with cough that is productive of yellowish sputum. He does have complaints of mild right-sided abdominal discomfort that he states he has had previously. Related Data Home Medications Medication Instructions Recorded Confirmed albuterol sulfate 90 mcg/actuation 2 puff inhalation Q6H PRN 11/08/22 01/29/23 aerosol inhaler (Ventolin HFA) Shortness Of Breath Or Wheezing aspirin 81 mg tablet,delayed 81 mg PO DAILY 11/08/22 01/29/23 release azithromycin 500 mg tablet 500 mg PO MOWEFR@0900 11/08/22 01/29/23 clopidogrel 75 mg tablet 75 mg PO DAILY 11/08/22 01/29/23 fluticasone fur. 100 mcg-umeclid 1 ea inhalation DAILY 11/08/22 01/29/23 62.5 mcg-vilant 25 mcg inhalat.powder (Trelegy Ellipta) ipratropium 0.5 mg-albuterol 3 mg 3 ml inhalation QID 01/29/23 01/29/23 (2.5 mg base)/3 mL nebulization wheezing/MUCOUS PLUGGING soln phenylephrine-guaifenesin 2.5 20 ml PO Q6H PRN Cough 01/29/23 01/29/23 mg-100 mg/5 mL oral liquid Previous Rx's Medication Instructions Recorded nebulizers #1 ea 11/14/22 Allergies Allergy/AdvReac Type Severity Reaction Status Date / Time No Known Allergies Allergy Verified 01/02/23 15:30 Review of Systems Review of Systems: Pertinent positives and negatives as stated in HPI [facility] Past Medical History Source: nursing notes reviewed Medical History Respiratory failure with hypoxia COPD (chronic obstructive pulmonary disease) Mucus plugging of bronchi PAD (peripheral artery disease) AAA (abdominal aortic aneurysm) without rupture Emphysema lung Social History Social History Household Members: Spouse Housing: House Do you presently have visiting nurse or other home services: No Alcohol intake: never Patient Tobacco Use Status: Former Tobacco user Use of substances other than those prescribed or required for medical reasons: No Advance Directives: No Advance Directives Information Provided: No Nutrition Risks: No Nutritional Risk service: No Physical Exam ED Vital Signs: Vital Signs - 24 hr 01/29/23 14:15 01/29/23 14:28 01/29/23 14:36 Temperature 99.9 F 99.6 F Pulse Rate 114 H 75 120 H Respiratory Rate 28 H 16 28 H Blood Pressure 131/80 147/82 H Pulse Oximetry 90 L 96 Oxygen Delivery Method Nasal Cannula Nasal Cannula Oxygen Flow Rate 3 01/29/23 16:00 01/29/23 18:00 01/29/23 22:00 Temperature 99.3 F 98.6 F Pulse Rate 118 H 110 H 99 Respiratory Rate 20 16 18 Blood Pressure 106/65 112/67 116/62 Pulse Oximetry 93 94 94 Oxygen Delivery Method Nasal Cannula Nasal Cannula Room Air Oxygen Flow Rate 3 3 01/29/23 22:18 Temperature Pulse Rate 104 H Respiratory Rate 18 Blood Pressure Pulse Oximetry Oxygen Delivery Method Oxygen Flow Rate BMI result Body Mass Index 23.9 VITAL SIGNS: Reviewed. GENERAL: Chronically ill, in no acute distress. HEAD: Normocephalic/atraumatic EYES: PERRLA, EOMI EARS: Ext canals without abnormality NOSE: Nares patent bilateral OROPHARYNX: no oral lesions noted, posterior pharynx clear NECK: Supple, no adenopathy LUNGS: Good inspiratory effort but decreased breath sounds in right base SpO2<96> on home oxygen via nasal cannula CARDIOVASCULAR: Regular rate and rhythm without noted murmurs, no JVD or lower extremity edema. ABDOMEN: Soft, non-tender, non-distended with bowel sounds. MUSCULOSKELETAL: No tenderness, deformities, or effusions noted on gross inspection. EXTREMITIES: No cyanosis, clubbing or edema. SKIN: Inspection of the skin reveals no rashes NEUROLOGIC: Alert and oriented x 4. Strength and sensation to light touch were grossly intact x 4. Course Course Course Narrative: RME performed by Emma Umana PA-C. Patient is a 77 year old assigned male at presenting to the emergency department with increased difficulty breathing. Labs, imaging, and swabs ordered. Charge nurse called and made aware of patient's status. Medications Administered Generic Name Dose Route Start Last Admin Trade Name Freq PRN Reason Stop Dose Admin Sodium Chloride 3 ml 01/30/23 00:00 01/29/23 23:49 0.9 % Sodium Chloride Flush 3 Ml Syringe [facility] Administration Discontinued Medications Generic Name Dose Route Start Last Admin Trade Name Radha PRN Reason Stop Dose Admin Acetaminophen 975 mg 01/29/23 16:40 01/29/23 16:51 Acetaminophen 325 Mg Tablet PO 01/29/23 16:41 975 mg ONCE ONE Administration Albuterol/Ipratropium 3 ml 01/29/23 22:04 01/29/23 22:16 Albuterol/Iprat 2.5/0.5mg 3 Ml Ampul.Neb INHALE 01/29/23 22:05 3 ml ONCE ONE Administration Albuterol Sulfate 5 mg/ 0 mg 01/29/23 14:23 01/29/23 14:28 Albuterol/Ipratropium 3 ml INHALE 01/29/23 14:24 2.5 each ONCE ONE Administration Piperacillin Sod/Tazobactam 50 mls @ 100 mls/hr 01/29/23 16:05 01/29/23 17:22 Sod 3.375 gm/ Sodium Chloride IV 01/29/23 16:34 Infused ONCE ONE Infusion Methylprednisolone Sodium Succinate 125 mg 01/29/23 16:06 01/29/23 16:51 Methylprednisolone Sod Succ 125 Mg/2 Ml Vial IVPUSH 01/29/23 16:07 125 mg ONCE ONE Administration Medical Decision Making Medical Decision Making [facility] Narrative: 1530: 77-year-old male with history and clinical presentation, DDX: COPD exacerbation, pneumonia, patient is noted to be tachycardic but no recorded elevated temperature, however I do feel a portion of this elevated heart rate is secondary to medication, most notably albuterol. Patient will be getting lactic acid/blood culture/antibiotics. 1612: I reviewed all investigations and hematologic indices are negative for leukocytosis but there is a noted left shift, no thrombocytopenia and a stable normocytic anemia. Coagulation studies are not supratherapeutic. Chemistry indices are grossly within normal limits and there is no demonstrated TOMMY or electrolytes/liver enzyme derangements, high sensitivity troponin is undetectable and BNP is within normal limits. Viral testing is negative for influenza/RSV/COVID-19. My prelim read of the chest x-ray is there is no two view for comparison appears to be consistent with infiltrate in the right base. Signed out to Dr Kiser. [id number] patient seen and re-evaluated patient 77 years old history of COPD on 2 L oxygen, CAD status post stenting on Plavix and aspirin was admitted here on 11/08/2022 till 11/14 for similar presentation of weakness and mucus plugging at CT scan done which showed mucus plugging versus neoplasm patient has similar presentation today also with increased mucus plugging coughing with yellowish phlegm and increased weakness chest x-ray shows without any significant change will do CT chest to rule out mucus plugging/pneumonia/neoplasm meanwhile patient received IV antibiotics patient does have elevated lactic acid level which is chronic secondary to nebulizing treatment. CT scan without any significant change from the previous CT scan patient been tachypneic short of breath feeling weak will admit patient for COPD Differential Diagnosis Differential Diagnoses: The differential diagnosis associated with the presentation includes Please see the discussion above Admission/Observation Consideration of admission/observation: Escalation of care including admission/observation considered Please see the discussion above Consult Healthcare Provider Management of the patient was discussed with: Hospitalist Please see the discussion above Lab Data MDM Lab Attestation statement: I reviewed the patient's lab results. Please see the discussion above 01/29/23 14:33 01/29/23 14:29 Labs: Lab Results 01/29/23 01/29/23 01/29/23 Range/Units 14:29 14:33 16:19 WBC 9.5 (4.8-10.8) X10*3/uL RBC 4.34 L (4.60-5.80) X10*6/uL Hgb 13.4 L (14.0-18.0) g/dl Hct 40.5 L (42.0-52.0) % MCV 93.3 (80.0-98.0) fL MCH 30.9 (27.0-33.0) pg MCHC 33.1 (31.0-36.0) g/dl RDW 13.8 (11.0-16.0) % Plt Count 205 (160-400) X10*3/uL MPV 10.3 (9.4-12.4) fL Immature Gran % (Auto) 0.2 (0.0-0.4) % Neut % (Auto) 78.1 H (45-73) % Lymph % (Auto) 7.2 L (20-40) % [place] % (Auto) 13.4 H (2-11) % Eos % (Auto) 0.7 (0-4) % Baso % (Auto) 0.4 (0-2) % Lymph # (Auto) 0.7 L (1.2-4.9) X10*3/uL [place] # (Auto) 1.3 H (0.1-1.2) X10*3/uL Eos # (Auto) 0.1 (0.0-0.4) X10*3/uL Baso # (Auto) 0.0 (0.0-0.2) X10*3/uL Abs Immat Gran (auto) 0.02 (0.00-0.03) X10*3/uL Absolute Neuts (auto) 7.4 (2.0-8.3) x10*3/uL Absolute Nucleated RBC 0.000 (0.0-0.012) X10*3/uL Nucleated RBC % (auto) 0.0 (0.0-0.2) /100WBC PT 11.1 (11.1-13.3) SEC INR 0.9 (0.9-1.1) APTT 25.7 L (26.0-36.4) SEC VBG pH (7.32-7.43) VBG pCO2 mmHg VBG pO2 mmHg VBG HCO3 (22-26) mmol/L VBG O2 Saturation % VBG Base Excess mmol/L Sodium 140 (135-145) mmol/L Potassium 4.6 (3.3-5.1) mmol/L Chloride 107 (96-108) mmol/L Carbon Dioxide 24 (22-29) mmol/L Anion Gap 14 (12-20) BUN 20 H (9-16) mg/dL Creatinine 0.94 (0.5-1.4) mg/dL Estim Creat Clear Calc 65.8 Estimated GFR > 60 Random Glucose 105 (60-115) mg/dL Lactic Acid 2.8 H* (0.5-2.0) mmol/L Lactic Acid F/U @ 2Hr (0.5-2.0) mmol/L Calcium 9.0 D (8.4-10.2) mg/dL Magnesium 1.9 (1.6-2.6) mg/dL Total Bilirubin 0.4 (0.0-1.0) mg/dL AST 19 (5-37) U/L ALT 12 (0-40) U/L Alkaline Phosphatase 75 (39-117) U/L Troponin I High Sens < 2.7 (<3.5-35.0) ng/L B-Natriuretic Peptide 30 (<100) pg/mL Total Protein 8.3 H (6.5-8.0) g/dL Albumin 4.2 (3.5-5.0) g/dL Urine Color Urine Appearance Urine pH (5.0-9.0) Ur Specific [place] (1.005-1.025) Urine Protein (Neg-Trace) mg/dL Urine Glucose (UA) (Negative) mg/dL Urine Ketones (Negative) mg/dL Urine Blood (Negative) Urine Nitrite (Negative) Ur Leukocyte Esterase (Negative) Urine RBC (0-2) /HPF Urine WBC (0-5) /HPF Ur Squamous Epith Cells (0-2) /HPF Urine Bacteria (None Seen) Hyaline Casts (0-2) /LPF Influenza Type A (PCR) NEGATIVE (Negative) Influenza Type B (PCR) NEGATIVE (Negative) RSV RNA Qual (PCR) NEGATIVE (Negative) SARS-CoV-2 RNA (RT-PCR) NEGATIVE (Negative) 01/29/23 01/29/23 Range/Units 16:23 19:15 WBC (4.8-10.8) X10*3/uL RBC (4.60-5.80) X10*6/uL Hgb (14.0-18.0) g/dl Hct (42.0-52.0) % MCV (80.0-98.0) fL MCH (27.0-33.0) pg MCHC (31.0-36.0) g/dl RDW (11.0-16.0) % Plt Count (160-400) X10*3/uL MPV (9.4-12.4) fL Immature Gran % (Auto) (0.0-0.4) % Neut % (Auto) (45-73) % Lymph % (Auto) (20-40) % [place] % (Auto) (2-11) % Eos % (Auto) (0-4) % Baso % (Auto) (0-2) % Lymph # (Auto) (1.2-4.9) X10*3/uL [place] # (Auto) (0.1-1.2) X10*3/uL Eos # (Auto) (0.0-0.4) X10*3/uL Baso # (Auto) (0.0-0.2) X10*3/uL Abs Immat Gran (auto) (0.00-0.03) X10*3/uL Absolute Neuts (auto) (2.0-8.3) x10*3/uL Absolute Nucleated RBC (0.0-0.012) X10*3/uL Nucleated RBC % (auto) (0.0-0.2) /100WBC PT (11.1-13.3) SEC INR (0.9-1.1) APTT (26.0-36.4) SEC VBG pH 7.39 (7.32-7.43) VBG pCO2 41 mmHg VBG pO2 54 mmHg VBG HCO3 25 (22-26) mmol/L VBG O2 Saturation 87.0 % VBG Base Excess 0.2 mmol/L Sodium (135-145) mmol/L Potassium (3.3-5.1) mmol/L Chloride (96-108) mmol/L Carbon Dioxide (22-29) mmol/L Anion Gap (12-20) BUN (9-16) mg/dL Creatinine (0.5-1.4) mg/dL Estim Creat Clear Calc Estimated GFR Random Glucose (60-115) mg/dL Lactic Acid (0.5-2.0) mmol/L Lactic Acid F/U @ 2Hr 2.0 (0.5-2.0) mmol/L Calcium (8.4-10.2) mg/dL Magnesium (1.6-2.6) mg/dL Total Bilirubin (0.0-1.0) mg/dL AST (5-37) U/L ALT (0-40) U/L Alkaline Phosphatase (39-117) U/L Troponin I High Sens (<3.5-35.0) ng/L B-Natriuretic Peptide (<100) pg/mL Total Protein (6.5-8.0) g/dL Albumin (3.5-5.0) g/dL Urine Color Yellow Urine Appearance Clear Urine pH 5.0 (5.0-9.0) Ur Specific [place] 1.020 (1.005-1.025) Urine Protein Trace (Neg-Trace) mg/dL Urine Glucose (UA) Negative (Negative) mg/dL Urine Ketones Trace (Negative) mg/dL Urine Blood Moderate (2+) H (Negative) Urine Nitrite Negative (Negative) Ur Leukocyte Esterase Trace H (Negative) Urine RBC 11-20 H (0-2) /HPF Urine WBC 0-5 (0-5) /HPF Ur Squamous Epith Cells 0-2 (0-2) /HPF Urine Bacteria None Seen (None Seen) Hyaline Casts 0-2 (0-2) /LPF Influenza Type A (PCR) (Negative) Influenza Type B (PCR) (Negative) RSV RNA Qual (PCR) (Negative) SARS-CoV-2 RNA (RT-PCR) (Negative) Independent Interpretation I performed an independent interpretation of an: EKG Interpretation: Sinus tachycardia, HR-120, no STEMI, MT/QRS/QTC is within normal limits. Radiology Impression Discussion of test interpretation with radiology: I have reviewed the radiologist's reading. Radiologist Impression: Please see the discussion above External Record Review External record reviewed: Outpatient record, Prior outpatient labs and Prior outpatient radiology Chronic Conditions Patient?s care impacted by: Other COPD with oxygen dependency Critical Care Time Critical Care Time Critical Care Time: Yes Total Critical Care Time: 60 Attestation: I personally attest to this time spent taking care of the patient. Discharge Plan Discharge Clinical Impression: Sepsis, Pneumonia, COPD (chronic obstructive pulmonary disease) Patient Disposition: Admitted As Inpatient
--- NOTE | 2023-01-29 14:14 | ECG_ITS ---
Test Reason : SOB Blood Pressure : / mmHG Vent. Rate : 120 BPM Atrial Rate : 120 BPM P-R Int : 190 ms QRS Dur : 068 ms QT Int : 282 ms P-R-T Axes : 075 -07 031 degrees QTc Int : 398 ms Sinus tachycardia Nonspecific ST and T wave abnormality Abnormal ECG When compared with ECG of 22-NOV-2022 19:25, No significant change was found Heart rate has increased Referred By: Emma Umana Electronically Signed By:KEILY HUERTA MD
[2023-01-29] MEDS: Albuterol Sulfate 5 MG, Albuterol/Iprat 2.5/0.5MG 3 ML 3 ML INHALE (14:28)
[2023-01-29 14:36] LABS: MANUAL DIFF FLAG NO
[2023-01-29 14:39] LABS: Basophils Percent Auto 0.4 % (0-2); Eosinophils Absolute Auto 0.1 X10*3/uL (0.0-0.4); Eosinophils Percent Auto 0.7 % (0-4); Hematocrit 40.5 % (42.0-52.0); Hemoglobin 13.4 g/dl (14.0-18.0); Imm Gran Abs Auto 0.02 X10*3/uL (0.00-0.03); Imm Gran Pct Auto 0.2 % (0.0-0.4); Lymphocytes Absolute Auto 0.7 X10*3/uL (1.2-4.9); Lymphocytes Percent Auto 7.2 % (20-40); Mean Corpuscular HGB Conc 33.1 g/dl (31.0-36.0); Mean Corpuscular Hemoglobin 30.9 pg (27.0-33.0); Mean Corpuscular Volume 93.3 fL (80.0-98.0); Mean Platelet Volume 10.3 fL (9.4-12.4); Monocytes Absolute Auto 1.3 X10*3/uL (0.1-1.2); Monocytes Percent Auto 13.4 % (2-11); Neutrophils Absolute Auto 7.4 x10*3/uL (2.0-8.3); Neutrophils Percent Auto 78.1 % (45-73); Platelet Count 205 X10*3/uL (160-400); Red Blood Count 4.34 X10*6/uL (4.60-5.80); Red Cell Distribution Width 13.8 % (11.0-16.0); White Blood Count 9.5 X10*3/uL (4.8-10.8)
[2023-01-29 14:43] LABS: INTERNATIONAL NORM RATIO 0.9 (0.9-1.1); Prothrombin Time 11.1 SEC (11.1-13.3)
--- NOTE | 2023-01-29 14:43 | PC.NURSE ---
a&ox3. pt comes in today d/t sob that started around 1100 this morning. pt states sx produced out of nowhere. pt also c/o 8/10 abdominal pain. pt states abd pain is intermittent and has been for months. pt currently tachycardic/tachypneic on 3L via NC - 98%. pt usually home O2 dependent on 2L via NC. pt currently displays w/ sob/wob at this time. respirations even and unlabored. pt receiving treatment from RT at this time. 20gIV placed in right AC w/o difficulty - labs drawn and sent to lab. ekg performed by tech. beside for support. call sommer placed within reach.
[2023-01-29 14:46] LABS: Partial Thromboplastin Time 25.7 SEC (26.0-36.4)
[2023-01-29 14:54] LABS: Alanine Aminotransferase 12 U/L (0-40); Albumin Level 4.2 g/dL (3.5-5.0); Alkaline Phosphatase 75 U/L (39-117); Anion Gap 14 (12-20); Aspartate Amino Transferase 19 U/L (5-37); Bilirubin Total 0.4 mg/dL (0.0-1.0); Blood Urea Nitrogen 20 mg/dL (9-16); Carbon Dioxide 24 mmol/L (22-29); Chloride 107 mmol/L (96-108); Creatinine Clr Calc Pharmacy 65.8; Estimated Glomerular Filt Rate > 60; Glucose Random 105 mg/dL (60-115); Magnesium 1.9 mg/dL (1.6-2.6); Potassium 4.6 mmol/L (3.3-5.1); Sodium 140 mmol/L (135-145); Total Protein 8.3 g/dL (6.5-8.0)
[2023-01-29 14:57] LABS: B Type Natriuretic Peptide 30 pg/mL (<100)
[2023-01-29 14:57] LABS: Troponin-I High Sensitivity < 2.7 ng/L (<3.5-35.0)
[2023-01-29 15:15] LABS: Influenza A PCR NEGATIVE (Negative); Influenza B PCR NEGATIVE (Negative); Resp Syncy Virus RNA Qual PCR NEGATIVE (Negative); SARS COV2 PCR INHOUSE NEGATIVE (Negative)
--- NOTE | 2023-01-29 16:17 | PC.NURSE ---
tech bedside attempting to obtain labs at this time. will administer medications when able.
--- NOTE | 2023-01-29 16:35 | PHA.MEDREC ---
Pharmacy Consult ? Medication Reconciliation Pharmacy has completed the medication reconciliation. Patient spouse confirmed medicaitons. Cyndee Frank, CristalD
[2023-01-29] MEDS: Piperacillin Sodium/Tazobactam 3.375 GM in 0.9 % Sodium Chloride 50 ML IV (16:50)
[2023-01-29] MEDS: Acetaminophen 325 MG TABLET 975 MG PO (16:51)
[2023-01-29] MEDS: methylPREDNISolone Sod Succ 125 MG/2 ML VIAL IVPUSH (16:51)
[2023-01-29 16:57] LABS: Lactic Acid 2.8 mmol/L (0.5-2.0)
--- NOTE | 2023-01-29 16:58 | PC.NURSE ---
labs drawn and sent to lab. medications administered per provider order. bedside. call sommer placed within reach.
[2023-01-29 17:20] LABS: Venous Blood Gas Refer to POC result
[2023-01-29 17:21] LABS: VBG Base Excess 0.2 mmol/L; VBG HCO3 25 mmol/L (22-26); VBG pCO2 41 mmHg; VBG pH 7.39 (7.32-7.43); VBG pO2 54 mmHg
--- NOTE | 2023-01-29 17:54 | PC.NURSE ---
repeat labs obtained/sent by [facility].
[2023-01-29 18:24] LABS: Reflex Lactate? Lactic Acid Added
[2023-01-29 19:23] LABS: Appearance Urine Clear; Color Urine Yellow; Glucose Urine UA Negative (Negative); Leukocyte Esterase Urine Trace (Negative); Nitrite Urine Negative (Negative); UMIC TRIGGER UACC YES; Urine Blood Moderate (2+) (Negative); Urine Ketones Trace mg/dL (Negative); Urine Protein Trace mg/dL (Neg-Trace)
[2023-01-29 19:28] LABS: Bacteria Urine None Seen (None Seen); Hyaline Casts Urine 0-2 /LPF (0-2); Squamous Epithelial Cell Urine 0-2 /HPF (0-2); WBC Urine 0-5 /HPF (0-5)
[2023-01-29] MEDS: Albuterol/Iprat 2.5/0.5MG 3 ML AMPUL.NEB INHALE (22:16)
--- NOTE | 2023-01-29 22:48 | PC.NURSE ---
Ambulation trial done, Pt SpO2 maintained at 96% on 3L via NC. Pt reported dizziness provider Dr. Wells made aware.
--- NOTE | 2023-01-29 23:17 | PC.NURSE ---
Pts called and updated on plan of care, that pt will be admitted for COPD.
--- NOTE | 2023-01-29 23:18 | P.HPHOSP_ITS ---
History of Present Illness Date of Service: 01/29/23 Chief Complaint: Dyspnea This is 77-year-old male with pertinent history of chronic hypoxemic respiratory failure due to COPD, peripheral arterial disease who presents to the emergency department for evaluation of dyspnea. Patient states he started having dyspnea on the day of presentation which was progressive throughout the day. Also associated with wheezing and nonproductive cough. He used his home inhaler without relief. Patient states he is compliant with his home medications. No fever, chills, chest discomfort, palpitations, abdominal pain, changes in urinary or bowel habits. Of note, patient was recently admitted on 11/08 with acute hypoxemic respiratory failure due to COPD exacerbation and pneumonia and discharged home on 11/14 with p.o. antibiotics and p.o. prednisone. In the emergency department, patient with continued wheezing despite multiple DuoNeb treatments Review of Systems 2 Constitutional: Constitutional: Reports fatigue and Reports lethargy Cardiovascular: Cardiovascular: Reports dyspnea and Reports dyspnea on exertion Respiratory: Respiratory: Reports cough, Reports dyspnea, Reports dyspnea on exertion and Reports wheezing Gastrointestinal: Gastrointestinal: Reports no additional gastrointestinal complaints Genitourinary: Genitourinary: Reports no additional male genitourinary complaints Endocrine: Endocrine: Reports fatigue Allergic/Immunologic: Allergic/Immunologic: Reports wheezing [facility] Medical History Respiratory failure with hypoxia COPD (chronic obstructive pulmonary disease) Mucus plugging of bronchi PAD (peripheral artery disease) AAA (abdominal aortic aneurysm) without rupture Emphysema lung Social History Household Members: Spouse Housing: House Do you presently have visiting nurse or other home services: No Alcohol intake: never Patient Tobacco Use Status: Former Tobacco user Use of substances other than those prescribed or required for medical reasons: No Advance Directives: No Advance Directives Information Provided: No Nutrition Risks: No Nutritional Risk service: No Meds Allergies Allergy/AdvReac Type Severity Reaction Status Date / Time No Known Allergies Allergy Verified 01/02/23 15:30 Home Medications Medication Instructions Recorded Confirmed Last Taken Type albuterol sulfate 90 mcg/actuation 2 puff inhalation Q6H PRN 11/08/22 01/29/23 Unknown History aerosol inhaler (Ventolin HFA) Shortness Of Breath Or Wheezing aspirin 81 mg tablet,delayed 81 mg PO DAILY 11/08/22 01/29/23 01/29/23 History release azithromycin 500 mg tablet 500 mg PO MOWEFR@0900 11/08/22 01/29/23 01/28/23 History clopidogrel 75 mg tablet 75 mg PO DAILY 11/08/22 01/29/23 01/29/23 History fluticasone fur. 100 mcg-umeclid 1 ea inhalation DAILY 11/08/22 01/29/23 01/29/23 History 62.5 mcg-vilant 25 mcg inhalat.powder (Trelegy Ellipta) ipratropium 0.5 mg-albuterol 3 mg 3 ml inhalation QID 01/29/23 01/29/23 01/29/23 History (2.5 mg base)/3 mL nebulization wheezing/MUCOUS PLUGGING soln phenylephrine-guaifenesin 2.5 20 ml PO Q6H PRN Cough 01/29/23 01/29/23 01/29/23 History mg-100 mg/5 mL oral liquid Physical Exam 2 Vital Signs and Narrative: Vital Signs: Last Vital Signs Temp 98.6 F 01/29/23 18:00 Pulse 104 H 01/29/23 22:18 Resp 18 01/29/23 22:18 BP 116/62 01/29/23 22:00 Pulse Ox 94 01/29/23 22:00 O2 Del Method Room Air 01/29/23 22:00 O2 Flow Rate 3 01/29/23 18:00 BMI result Body Mass Index 23.9 Middle-aged male lying in bed in mild distress on supplemental oxygen Neck supple, no JVD Tachycardia with regular rhythm, S1-S2 heard Bilateral wheezing present Abdomen soft nontender, no guarding, no rigidity Patient is awake, alert and oriented to self, place, time and person ; no focal motor deficit Psych: Normal mood No pedal edema Results Labs 01/29/23 14:33 01/29/23 14:29 Labs: Laboratory Results - last 24 hr 01/29/23 01/29/23 01/29/23 14:29 14:33 16:19 MCV 93.3 MCH 30.9 MCHC 33.1 RDW 13.8 Plt Count 205 MPV 10.3 Immature Gran % (Auto) 0.2 Neut % (Auto) 78.1 H Lymph % (Auto) 7.2 L [place] % (Auto) 13.4 H Eos % (Auto) 0.7 Baso % (Auto) 0.4 Lymph # (Auto) 0.7 L [place] # (Auto) 1.3 H Eos # (Auto) 0.1 Baso # (Auto) 0.0 Abs Immat Gran (auto) 0.02 Absolute Neuts (auto) 7.4 Absolute Nucleated RBC 0.000 Nucleated RBC % (auto) 0.0 PT 11.1 INR 0.9 APTT 25.7 L VBG pH VBG pCO2 VBG pO2 VBG HCO3 VBG O2 Saturation VBG Base Excess Anion Gap 14 Estim Creat Clear Calc 65.8 Estimated GFR > 60 Random Glucose 105 Lactic Acid 2.8 H* Lactic Acid F/U @ 2Hr Calcium 9.0 D Magnesium 1.9 Total Bilirubin 0.4 AST 19 ALT 12 Alkaline Phosphatase 75 B-Natriuretic Peptide 30 Total Protein 8.3 H Albumin 4.2 Urine Color Urine Appearance Urine pH Ur Specific [place] Urine Protein Urine Glucose (UA) Urine Ketones Urine Blood Urine Nitrite Ur Leukocyte Esterase Urine RBC Urine WBC Ur Squamous Epith Cells Urine Bacteria Hyaline Casts Influenza Type A (PCR) NEGATIVE Influenza Type B (PCR) NEGATIVE RSV RNA Qual (PCR) NEGATIVE SARS-CoV-2 RNA (RT-PCR) NEGATIVE 01/29/23 01/29/23 16:23 19:15 MCV MCH MCHC RDW Plt Count MPV Immature Gran % (Auto) Neut % (Auto) Lymph % (Auto) [place] % (Auto) Eos % (Auto) Baso % (Auto) Lymph # (Auto) [place] # (Auto) Eos # (Auto) Baso # (Auto) Abs Immat Gran (auto) Absolute Neuts (auto) Absolute Nucleated RBC Nucleated RBC % (auto) PT INR APTT VBG pH 7.39 VBG pCO2 41 VBG pO2 54 VBG HCO3 25 VBG O2 Saturation 87.0 VBG Base Excess 0.2 Anion Gap Estim Creat Clear Calc Estimated GFR Random Glucose Lactic Acid Lactic Acid F/U @ 2Hr 2.0 Calcium Magnesium Total Bilirubin AST ALT Alkaline Phosphatase B-Natriuretic Peptide Total Protein Albumin Urine Color Yellow Urine Appearance Clear Urine pH 5.0 Ur Specific [place] 1.020 Urine Protein Trace Urine Glucose (UA) Negative Urine Ketones Trace Urine Blood Moderate (2+) H Urine Nitrite Negative Ur Leukocyte Esterase Trace H Urine RBC 11-20 H Urine WBC 0-5 Ur Squamous Epith Cells 0-2 Urine Bacteria None Seen Hyaline Casts 0-2 Influenza Type A (PCR) Influenza Type B (PCR) RSV RNA Qual (PCR) SARS-CoV-2 RNA (RT-PCR) Imaging Radiologist's Impressions: Impressions Chest X-Ray 01/29/23 15:39 IMPRESSION: No acute cardiopulmonary disease. Chronic appearing scarring/atelectasis with similar distribution and severity Chest CT 01/29/23 19:13 IMPRESSION: 1. No significant change since most recent prior CT of the chest done on 11/08/2022. 2. Reidentified extensive emphysematous disease predominantly involving both upper lobes. Superimposed indeterminate right lower lobar bronchial/peribronchiolar soft tissue opacity and nonspecific indeterminate soft tissue opacity at left lower lobe of the lung appear unchanged. Differential remains infectious, inflammatory process/mucus plugging as well as neoplasm. 3. Multiple calcified gallstones and numerous stable presumed hepatic cysts. Fleischner guidelines were followed. Assessment and Plan (1) COPD (chronic obstructive pulmonary disease): Status: Acute Plan This is 77-year-old male with pertinent history of chronic hypoxemic respiratory failure due to COPD, peripheral arterial disease who presents to the emergency department for evaluation of dyspnea. #. Acute respiratory distress on chronic hypoxemic respiratory failure due to COPD exacerbation: Will admit patient and initiate systemic steroids. Scheduled and pjens Cornelius. Consulting pulmonology, appreciate assistance. Continue home inhalers. #. Peripheral vascular disease: On aspirin and statin. Not on high-intensity statin. #. Lactic acidosis due to hypoxia. No sepsis. Tachycardia and tachypnea due to respiratory distress Med rec pending DVT prophylaxis: Lovenox Quality Stroke Does the patient have a stroke diagnosis?: No VTE Prior VTE?: No VTE Risk Level:: Medical - moderate - high VTE Device Contraindication: Treatment Not Indicated VTE Drug Contraindication: N/A - Med Ordered
[2023-01-29] MEDS: 0.9 % Sodium Chloride Flush 3 ML SYRINGE IVFLUSH (23:49)
--- NOTE | 2023-01-29 23:51 | MHC.EDTECH ---
This pct assumed care of pt at 2300 ,vitals taken and Pt Belonging done ,Pt watching Television ,no apparent distress noted .
[2023-01-30] VITALS (10 sets, daily range): BP systolic 124–147; BP diastolic 63–84; PULSE 80–109; RESP 16–26; TEMP 36.4–36.8; O2SAT 94–97
[2023-01-30 06:14] LABS: Basophils Percent Auto 0.2 % (0-2); Hematocrit 35.6 % (42.0-52.0); Hemoglobin 11.7 g/dl (14.0-18.0); Imm Gran Abs Auto 0.01 X10*3/uL (0.00-0.03); Imm Gran Pct Auto 0.2 % (0.0-0.4); Lymphocytes Absolute Auto 0.3 X10*3/uL (1.2-4.9); Lymphocytes Percent Auto 6.4 % (20-40); MANUAL DIFF FLAG SCAN; Mean Corpuscular HGB Conc 32.9 g/dl (31.0-36.0); Mean Corpuscular Hemoglobin 30.5 pg (27.0-33.0); Mean Corpuscular Volume 92.7 fL (80.0-98.0); Monocytes Absolute Auto 0.1 X10*3/uL (0.1-1.2); Neutrophils Absolute Auto 4.2 x10*3/uL (2.0-8.3); Neutrophils Percent Auto 90.2 % (45-73); Platelet Count 203 X10*3/uL (160-400); Red Blood Count 3.84 X10*6/uL (4.60-5.80); Red Cell Distribution Width 14.2 % (11.0-16.0); SCAN SMEAR FLAG 1; White Blood Count 4.7 X10*3/uL (4.8-10.8)
[2023-01-30] MEDS: methylPREDNISolone Sod Succ 40 MG/ML VIAL IVPUSH ×2 (06:27→17:24)
[2023-01-30 06:29] LABS: Anion Gap 14 (12-20); Blood Urea Nitrogen 26 mg/dL (9-16); Calcium 8.8 mg/dL (8.4-10.2); Carbon Dioxide 22 mmol/L (22-29); Chloride 110 mmol/L (96-108); Creatinine Clr Calc Pharmacy 52.4; Estimated Glomerular Filt Rate 60; Glucose Random 180 mg/dL (60-115); Potassium 3.9 mmol/L (3.3-5.1); Sodium 142 mmol/L (135-145)
[2023-01-30] MEDS: Acetaminophen 325 MG TABLET 650 MG PO (06:30)
--- NOTE | 2023-01-30 06:46 | PC.NURSE ---
Pt appears to be sleeping, awakens with verbal commands, Pt reported epigastric pain meds given per MAR. Pt made aware of plan
[2023-01-30] MEDS: 0.9 % Sodium Chloride Flush 3 ML SYRINGE IVFLUSH ×3 (07:36→20:47)
[2023-01-30] MEDS: Enoxaparin Sodium 40 MG/0.4 ML SYRINGE SUBCUT (07:36)
[2023-01-30] MEDS: Albuterol/Iprat 2.5/0.5MG 3 ML AMPUL.NEB INHALE ×3 (07:37→19:32)
[2023-01-30 07:46] LABS: SLIDE REVIEW VERIFIED
[2023-01-30] MEDS: Azithromycin 500 MG TABLET PO (08:39)
[2023-01-30] MEDS: Aspirin Enteric Coated 81 MG TABLET.DR PO (08:39)
[2023-01-30] MEDS: Clopidogrel Bisulfate 75 MG TABLET PO (08:39)
--- NOTE | 2023-01-30 09:21 | P.CONPL_ITS ---
History of Present Illness History of Present Illness Consult date: 01/30/23 Requesting physician: Kait Nazario Reason for consult: dyspnea and COPD Chief complaint: Dyspnea Narrative: THIS 77 YEARS OLD GENTLEMAN IS WELL KNOWN CASE OF ADVANCED CHRONIC OBSTRUCTIVE PULMONARY DISEASE. HE WAS TREATED IN [facility] FOR AN ACUTE EXACERBATION, IN OCTOBER OF THIS YEAR. LATER ON HAS BEEN SEEN IN THE OFFICE FOR FOLLOW-UP, AND WAS DOING FAIRLY WELL. IT SHOULD BE NOTED THAT HE HAS HISTORY OF PAST SMOKING, QUIT ONLY RECENTLY. 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 DURING HIS ADMISSION IN OCTOBER THE HE WAS FELT TO BE A VERY POOR RISK FOR BRONCHOSCOPIC EXAMINATION. HE HAD IMPROVED WITH THE CONSERVATIVE TREATMENT, AND CONTINUED ON PREDNISONE AT HOME, AZITHROMYCIN, 250 MG ON ALTERNATE DAYS TRELEGY ELLIPTA , 1 INHALATION DAILY AND ALSO DUONEB UPDRAFTS 3 TIMES A DAY. HE CONTINUES TO ON O2 3 L/MINUTES, HE ALSO HAS ADVANCED PERIPHERAL VASCULAR DISEASE, IS KNOWN TO HAVE ABDOMINAL AORTIC ANEURYSM, AND HIS PREVIOUS THE ABDOMINAL ULTRASOUND HAVE SHOWN CHOLELITHIASIS. THIS TIME HE PRESENTS THE WITH SYMPTOMS STARTING WITH UPPER ABDOMINAL PAIN . HE DESCRIBES INTENSE PAIN IN THE UPPER ABDOMEN MOSTLY IN THE EPIGASTRIC AREA, AND THEN SECONDARY DEFECT WAS INCREASED SHORTNESS OF BREATH. . NO NAUSEA OR VOMITING HE HAS HAD NO FEVER OR CHILLS. PAST MEDICAL HISTORY NOTED IN [facility]. Review of Systems 2 Review of Systems: Yes all other systems are reviewed and are negative Eyes: Eyes: Reports no additional eye complaints ENT: Reports system reviewed and no additional complaints, except as documented Cardiovascular: Cardiovascular: Denies chest pain, Denies irregular heart rhythm and Denies leg edema Respiratory: Respiratory: Reports as per HPI Gastrointestinal: Gastrointestinal: Reports abdominal pain and Reports nausea Genitourinary: Genitourinary: Reports urinary frequency Musculoskeletal: Musculoskeletal: Reports no additional musculoskeletal complaints Integumentary/Breasts: Skin/Breast: Reports system reviewed and no additional complaints, except as docu Neurologic: Reports system reviewed and no additional complaints, except as documented Psychiatric: Psychiatric: Reports no additional psychiatric complaints [facility] Past Medical History Medical History Respiratory failure with hypoxia COPD (chronic obstructive pulmonary disease) Mucus plugging of bronchi PAD (peripheral artery disease) AAA (abdominal aortic aneurysm) without rupture Emphysema lung Social History Social History Household Members: Spouse Housing: House Do you presently have visiting nurse or other home services: No Alcohol intake: never Patient Tobacco Use Status: Former Tobacco user Use of substances other than those prescribed or required for medical reasons: No Advance Directives: No Advance Directives Information Provided: No Nutrition Risks: No Nutritional Risk service: No Meds Allergies Allergy/AdvReac Type Severity Reaction Status Date / Time No Known Allergies Allergy Verified 01/02/23 15:30 Active Medications: Current Medications Acetaminophen (Acetaminophen 325 Mg Tablet) 650 mg PO Q6H PRN PRN Reason: Pain, Mild (Pain Scale 1-3) Last Admin: 01/30/23 06:30 Dose: 650 mg Albuterol/Ipratropium (Albuterol/Iprat 2.5/0.5mg 3 Ml Ampul.Neb) 3 ml INHALE RQ4H WHILE AWAKE [facility] Last Admin: 01/30/23 07:37 Dose: 3 ml Albuterol/Ipratropium (Albuterol/Iprat 2.5/0.5mg 3 Ml Ampul.Neb) 3 ml INHALE Q4H PRN PRN Reason: Wheezing Aspirin (Aspirin Enteric Coated 81 Mg Tablet.Dr) 81 mg PO DAILY [facility] Last Admin: 01/30/23 08:39 Dose: 81 mg Azithromycin (Azithromycin 500 Mg Tablet) 500 mg PO MOWEFR@0900 [facility] Last Admin: 01/30/23 08:39 Dose: 500 mg Clopidogrel Bisulfate (Clopidogrel Bisulfate 75 Mg Tablet) 75 mg PO DAILY [facility] Last Admin: 01/30/23 08:39 Dose: 75 mg Enoxaparin Sodium (Enoxaparin Sodium 40 Mg/0.4 Ml Syringe) 40 mg SUBCUT Q24H [facility] Last Admin: 01/30/23 07:36 Dose: 40 mg Melatonin (Melatonin 3 Mg Tablet) 6 mg PO BEDTIME PRN PRN Reason: Insomnia Methylprednisolone Sodium Succinate (Methylprednisolone Sod Succ 40 Mg/Ml Vial) 40 mg IVPUSH Q12H [facility] Last Admin: 01/30/23 06:27 Dose: 40 mg Ondansetron HCl (Ondansetron Hcl 4 Mg/2 Ml Vial) 4 mg IVPUSH Q8H PRN PRN Reason: Nausea and Vomiting Sodium Chloride (0.9 % Sodium Chloride Flush 3 Ml Syringe) [facility] Admin: 01/30/23 07:36 Dose: 3 ml Home Medications Medication Instructions Recorded Confirmed Last Taken Type albuterol sulfate 90 mcg/actuation 2 puff inhalation Q6H PRN 11/08/22 01/29/23 Unknown History aerosol inhaler (Ventolin HFA) Shortness Of Breath Or Wheezing aspirin 81 mg tablet,delayed 81 mg PO DAILY 11/08/22 01/29/23 01/29/23 History release azithromycin 500 mg tablet 500 mg PO MOWEFR@0900 11/08/22 01/29/23 01/28/23 History clopidogrel 75 mg tablet 75 mg PO DAILY 11/08/22 01/29/23 01/29/23 History fluticasone fur. 100 mcg-umeclid 1 ea inhalation DAILY 11/08/22 01/29/23 01/29/23 History 62.5 mcg-vilant 25 mcg inhalat.powder (Trelegy Ellipta) ipratropium 0.5 mg-albuterol 3 mg 3 ml inhalation QID 01/29/23 01/29/23 01/29/23 History (2.5 mg base)/3 mL nebulization wheezing/MUCOUS PLUGGING soln phenylephrine-guaifenesin 2.5 20 ml PO Q6H PRN Cough 01/29/23 01/29/23 01/29/23 History mg-100 mg/5 mL oral liquid Physical Exam 2 Vital Signs: Vital Signs: Last Vital Signs Temp 97.8 F 01/30/23 08:38 Pulse 109 H 01/30/23 08:38 Resp 24 H 01/30/23 08:38 BP 131/68 01/30/23 08:38 Pulse Ox 94 01/30/23 08:38 O2 Del Method Nasal Cannula 01/30/23 08:38 O2 Flow Rate 3 01/30/23 08:38 BMI result Body Mass Index 23.9 Const: General: comfortable (Except for shortness of breath during conversation), no acute distress, alert and awake Orientation/consciousness: patient oriented x3 HEENT: Head: Yes normal to inspection General nose exam: No nasal polyps present and No nasal discharge present Face and sinus: Yes sinuses nontender Mouth: oropharynx normal Teeth and gingiva: edentulous Throat: Yes posterior oropharynx normal Eyes: General: appearance normal, both eyes and all related structures Neck: Neck: Yes normal visual inspection, Yes no lymphadenopathy, Yes trachea midline and Yes no JVD Thyroid: Thyroid normal Chest: Chest palpation & inspection: normal inspection of the chest, normal palpation of entire chest wall and no tenderness Resp: Other: PERCUSSION NOTE IS RESONANT, BREATH SOUNDS ARE VERY DISTANT, ESPECIALLY OVER THE RIGHT LOWER LOBE AND LEFT BASE, WITH PROLONGED EXPIRATORY PHASE. NO WHEEZES OR CREPITATIONS ARE HEARD TODAY. Cardio: Palpation: normal PMI Rate: regular rate Rhythm: regular rhythm Heart sounds: no gallops and no murmurs GI: Palpation (GI): Soft to palpation, nontender, No hepatosplenomegaly present and no masses Auscultation: normal bowel sounds Back/Spine/Pelvis: Thoracic/Lumbar Spine: thoracic and lumbar spine normal to inspection and thoraco-lumbar ROM limited Skin: General skin exam: no rashes or lesions noted Neuro: General: patient oriented x3 and no focal motor deficits Cranial nerves: Yes CN's II-XII intact bilaterally Extrem: General: Yes normal to inspection, Yes no clubbing, cyanosis or edema and Yes no calf tenderness Psych: Other: POOR GENERAL HYGIENE Appearance: disheveled Mental Status: mental status grossly normal S peech and movement: Normal speech and movement present Results Laboratory Findings 01/30/23 04:56 01/30/23 04:56 ABG, PT/INR, D-dimer: PT/INR, D-dimer PT 11.1 SEC (11.1-13.3) 01/29/23 14:29 INR 0.9 (0.9-1.1) 01/29/23 14:29 Abnormal lab findings: Abnormal Labs 01/29/23 01/29/23 01/29/23 14:29 14:33 16:19 WBC RBC 4.34 L Hgb 13.4 L Hct 40.5 L Neut % (Auto) 78.1 H Lymph % (Auto) 7.2 L [place] % (Auto) 13.4 H Lymph # (Auto) 0.7 L [place] # (Auto) 1.3 H APTT 25.7 L Chloride BUN 20 H Random Glucose Lactic Acid 2.8 H* Total Protein 8.3 H Urine Blood Ur Leukocyte Esterase Urine RBC 01/29/23 01/30/23 19:15 04:56 WBC 4.7 L RBC 3.84 L Hgb 11.7 L Hct 35.6 L Neut % (Auto) 90.2 H Lymph % (Auto) 6.4 L [place] % (Auto) Lymph # (Auto) 0.3 L [place] # (Auto) APTT Chloride 110 H BUN 26 H Random Glucose 180 H Lactic Acid Total Protein Urine Blood Moderate (2+) H Ur Leukocyte Esterase Trace H Urine RBC 11-20 H Diagnostic Findings Chest x-ray: report reviewed and image reviewed CT scan - chest: report reviewed and image reviewed Assessment and Plan (1) COPD (chronic obstructive pulmonary disease): Status: Acute (2) PAD (peripheral artery disease): Status: Acute (3) Respiratory failure with hypoxia: Status: Acute (4) Mucus plugging of bronchi: Status: Acute Plan THIS GENTLEMAN HAS ADVANCED CHRONIC OBSTRUCTIVE PULMONARY DISEASE SECONDARY TO PULMONARY EMPHYSEMA/BULLOUS LUNG DISEASE, AND CHRONIC BRONCHITIS. HE DOES HAVE THICKENED BRONCHIAL BLAND AND POSSIBLE MUCUS PLUGGING IN THE BASILAR AREAS, ALONG WITH SOME ATELECTASIS. THE X-RAY AND CT SCAN FINDINGS ARE NOT MUCH DIFFERENT FROM BEFORE WHEN HE WAS HOSPITALIZED IN OCTOBER OF THIS YEAR. PATIENT IS NOT A GOOD CANDIDATE FOR BRONCHOSCOPIC EXAMINATION. I THINK HE HAS A MILD ACUTE EXACERBATION OF COPD WHICH NEEDS TO BE TREATED AT PRESENT, I AGREE WITH THE CURRENT TREATMENT REGIMEN, ADJUST THE O2 FLOW TO KEEP O2 SAT ABOVE 90%, SOON HE IS STABLE HE CAN BE STARTED ON ORAL ANTIBIOTIC REGIMEN AND A PREDNISONE TAPER, ON DISCHARGE HOME HE SHOULD RESUME USING HIS TRELEGY ELLIPTA 1 INHALATION DAILY, ALONG WITH DUONEB UPDRAFTS AND OXYGEN. WHILE INPATIENT IN PLACE OF TRELEGY ELLIPTA WE CAN USE BREO-200 . ONCE A DAY Procedures Date of Service Date of Service: 01/30/23
--- NOTE | 2023-01-30 09:31 | MHC.CM.PN ---
PT REPORTS HE LIVES AT HOME WITH HIS AND IS INDEPENDENT WITH SELF CARE HE REPORTS HE HAS NO SERVICES CURRENTLY BUT IS OPEN TO [facility] IF INDICATED PT SAYS HE HAS HOME O2 FROM [facility] HE USES CONTINUOUSLY HE ALSO HAS A NEBULIZER AND WALKER HE USES PRN PT SAYS HE HAS A HCP NAMING HIS , COPY REQUESTED PCP: SAADIA MALONE OBSERVATION NOTICE DELIVERED DCP: HOME NO SERVICES VS HOME WITH [facility] TO TRANSPORT
[2023-01-30] MEDS: cefTRIAXone sodium 1 GM in 0.9 % Sodium Chloride 50 ML IV (10:27)
--- NOTE | 2023-01-30 10:49 | PC.NURSE ---
Report received from Anel RN & care transferred at this time. Pt currently appears in NAD. VSS. RR even and unlabored bilaterally on 3L NC. Pt Obs Admit - awaiting bed assignment.
--- NOTE | 2023-01-30 11:45 | HO.PM.IMPN ---
Subjective Subjective Date of Service: 01/30/23 Interval History: sob, cough Physical Exam Vital Signs: Vital Signs: Last Vital Signs Temp 97.6 F 01/30/23 10:57 Pulse 99 01/30/23 11:20 Resp 26 H 01/30/23 11:20 BP 129/71 01/30/23 10:57 Pulse Ox 95 01/30/23 10:57 O2 Del Method Nasal Cannula 01/30/23 10:57 O2 Flow Rate 3 01/30/23 10:57 BMI result Body Mass Index 23.9 General: AO X 3, no acute distress Resp: diminished bilateral, no accessory muscles used CVS: S1,S2,RRR GI: soft, non tender, non distended Neuro: motor grossly intact, alert Psych: appropriate affect, appropriate insight Objective Data Active Medications Acetaminophen (Acetaminophen 325 Mg Tablet) 650 mg PO Q6H PRN PRN Reason: Pain, Mild (Pain Scale 1-3) Last Admin: 01/30/23 06:30 Dose: 650 mg Documented By: LUKE Albuterol/Ipratropium (Albuterol/Iprat 2.5/0.5mg 3 Ml Ampul.Neb) 3 ml INHALE RQ4H WHILE AWAKE [facility] Last Admin: 01/30/23 11:20 Dose: 3 ml Documented By: KESHAWN Albuterol/Ipratropium (Albuterol/Iprat 2.5/0.5mg 3 Ml Ampul.Neb) 3 ml INHALE Q4H PRN PRN Reason: Wheezing Aspirin (Aspirin Enteric Coated 81 Mg Tablet.) 81 mg PO DAILY [facility] Last Admin: 01/30/23 08:39 Dose: 81 mg Documented By: NEVINOPEMagui Azithromycin (Azithromycin 500 Mg Tablet) 500 mg PO MOWEFR@0900 [facility] Last Admin: 01/30/23 08:39 Dose: 500 mg Documented By: PEEWEE Clopidogrel Bisulfate (Clopidogrel Bisulfate 75 Mg Tablet) 75 mg PO DAILY [facility] Last Admin: 01/30/23 08:39 Dose: 75 mg Documented By: PEEWEE Enoxaparin Sodium (Enoxaparin Sodium 40 Mg/0.4 Ml Syringe) 40 mg SUBCUT Q24H [facility] Last Admin: 01/30/23 07:36 Dose: 40 mg Documented By: PEEWEE Ceftriaxone Sodium 1 gm/ (Sodium Chloride) 50 mls @ 100 mls/hr IV Q24H [facility] Last Admin: 01/30/23 10:27 Dose: 100 mls/hr Documented By: YONI Melatonin (Melatonin 3 Mg Tablet) 6 mg PO BEDTIME PRN PRN Reason: Insomnia Methylprednisolone Sodium Succinate (Methylprednisolone Sod Succ 40 Mg/Ml Vial) 40 mg IVPUSH Q12H [facility] Last Admin: 01/30/23 06:27 Dose: 40 mg Documented By: LUKE Ondansetron HCl (Ondansetron Hcl 4 Mg/2 Ml Vial) 4 mg IVPUSH Q8H PRN PRN Reason: Nausea and Vomiting Sodium Chloride (0.9 % Sodium Chloride Flush 3 Ml Syringe) 3 ml IVFLUSH QSHIFT [facility] Last Admin: 01/30/23 07:36 Dose: 3 ml Documented By: PEEWEE Labs 01/30/23 04:56 01/30/23 04:56 Labs: Laboratory Results - last 24 hr 01/29/23 01/29/23 01/29/23 14:29 14:33 16:19 MCV 93.3 MCH 30.9 MCHC 33.1 RDW 13.8 Plt Count 205 MPV 10.3 Immature Gran % (Auto) 0.2 Neut % (Auto) 78.1 H Lymph % (Auto) 7.2 L [place] % (Auto) 13.4 H Eos % (Auto) 0.7 Baso % (Auto) 0.4 Lymph # (Auto) 0.7 L [place] # (Auto) 1.3 H Eos # (Auto) 0.1 Baso # (Auto) 0.0 Abs Immat Gran (auto) 0.02 Absolute Neuts (auto) 7.4 Absolute Nucleated RBC 0.000 Nucleated RBC % (auto) 0.0 Smear Tech's Comments PT 11.1 INR 0.9 APTT 25.7 L VBG pH VBG pCO2 VBG pO2 VBG HCO3 VBG O2 Saturation VBG Base Excess Anion Gap 14 Estim Creat Clear Calc 65.8 Estimated GFR > 60 Random Glucose 105 Lactic Acid 2.8 H* Lactic Acid F/U @ 2Hr Calcium 9.0 D Magnesium 1.9 Total Bilirubin 0.4 AST 19 ALT 12 Alkaline Phosphatase 75 B-Natriuretic Peptide 30 Total Protein 8.3 H Albumin 4.2 Urine Color Urine Appearance Urine pH Ur Specific [place] Urine Protein Urine Glucose (UA) Urine Ketones Urine Blood Urine Nitrite Ur Leukocyte Esterase Urine RBC Urine WBC Ur Squamous Epith Cells Urine Bacteria Hyaline Casts Influenza Type A (PCR) NEGATIVE Influenza Type B (PCR) NEGATIVE RSV RNA Qual (PCR) NEGATIVE SARS-CoV-2 RNA (RT-PCR) NEGATIVE 01/29/23 01/29/23 01/30/23 16:23 19:15 04:56 MCV 92.7 MCH 30.5 MCHC 32.9 RDW 14.2 Plt Count 203 MPV 11.0 Immature Gran % (Auto) 0.2 Neut % (Auto) 90.2 H Lymph % (Auto) 6.4 L [place] % (Auto) 3.0 Eos % (Auto) 0.0 Baso % (Auto) 0.2 Lymph # (Auto) 0.3 L [place] # (Auto) 0.1 Eos # (Auto) 0.0 Baso # (Auto) 0.0 Abs Immat Gran (auto) 0.01 Absolute Neuts (auto) 4.2 Absolute Nucleated RBC 0.000 Nucleated RBC % (auto) 0.0 Smear Tech's Comments VERIFIED PT INR APTT VBG pH 7.39 VBG pCO2 41 VBG pO2 54 VBG HCO3 25 VBG O2 Saturation 87.0 VBG Base Excess 0.2 Anion Gap 14 Estim Creat Clear Calc 52.4 Estimated GFR 60 Random Glucose 180 H Lactic Acid Lactic Acid F/U @ 2Hr 2.0 Calcium 8.8 Magnesium Total Bilirubin AST ALT Alkaline Phosphatase B-Natriuretic Peptide Total Protein Albumin Urine Color Yellow Urine Appearance Clear Urine pH 5.0 Ur Specific [place] 1.020 Urine Protein Trace Urine Glucose (UA) Negative Urine Ketones Trace Urine Blood Moderate (2+) H Urine Nitrite Negative Ur Leukocyte Esterase Trace H Urine RBC 11-20 H Urine WBC 0-5 Ur Squamous Epith Cells 0-2 Urine Bacteria None Seen Hyaline Casts 0-2 Influenza Type A (PCR) Influenza Type B (PCR) RSV RNA Qual (PCR) SARS-CoV-2 RNA (RT-PCR) Assessment and Plan (1) Sepsis: Status: Acute Plan 77M PMH chronic hypoxic respiratory failured due to copd, pvd, presented with sob, cought Acute on chronic hypoxic respiratory failure secondary to COPD with acute decompensation IV Solu-Medrol, bronchodilators, ceftriaxone, azithromycin Wean O2 as tolerated Peripheral vascular disease Dual antiplatelet and statin DVT prophylaxis with Lovenox reason for continued hospitalization: Patient is still tachypneic, short of breath Quality Stroke Does the patient have a stroke diagnosis?: No VTE Prior VTE?: No VTE Risk Level:: Medical - moderate - high VTE Device Contraindication: Treatment Not Indicated VTE Drug Contraindication: N/A - Med Ordered
--- NOTE | 2023-01-30 14:35 | PC.NURSE ---
Report given to Pema JACK, preparing patient for transport to Bed 372.
[2023-01-30] MEDS: Benzonatate 100 MG CAPSULE 200 MG PO (20:47)
[2023-01-30] MEDS: Melatonin 3 MG TABLET 6 MG PO (22:42)
[2023-01-31] VITALS (8 sets, daily range): BP systolic 117–165; BP diastolic 55–82; PULSE 62–93; RESP 16–18; TEMP 36.2–36.3; O2SAT 94–97
[2023-01-31] MEDS: methylPREDNISolone Sod Succ 40 MG/ML VIAL IVPUSH ×2 (06:02→17:07)
[2023-01-31 06:33] LABS: Hemoglobin 11.6 g/dl (14.0-18.0); Mean Corpuscular HGB Conc 32.2 g/dl (31.0-36.0); Mean Corpuscular Hemoglobin 30.2 pg (27.0-33.0); Mean Corpuscular Volume 93.8 fL (80.0-98.0); Mean Platelet Volume 10.3 fL (9.4-12.4); Platelet Count 230 X10*3/uL (160-400); Red Blood Count 3.84 X10*6/uL (4.60-5.80); Red Cell Distribution Width 14.4 % (11.0-16.0); White Blood Count 10.7 X10*3/uL (4.8-10.8)
[2023-01-31 06:57] LABS: Anion Gap 10 (12-20); Blood Urea Nitrogen 32 mg/dL (9-16); Calcium 8.4 mg/dL (8.4-10.2); Carbon Dioxide 27 mmol/L (22-29); Chloride 110 mmol/L (96-108); Creatinine Clr Calc Pharmacy 66.5; Estimated Glomerular Filt Rate > 60; Glucose Fasting 119 mg/dL (60-99); Potassium 4.5 mmol/L (3.3-5.1); Sodium 142 mmol/L (135-145)
[2023-01-31] MEDS: Enoxaparin Sodium 40 MG/0.4 ML SYRINGE SUBCUT (08:12)
[2023-01-31] MEDS: Aspirin Enteric Coated 81 MG TABLET.DR PO (08:12)
[2023-01-31] MEDS: Clopidogrel Bisulfate 75 MG TABLET PO (08:12)
[2023-01-31] MEDS: 0.9 % Sodium Chloride Flush 3 ML SYRINGE IVFLUSH ×3 (08:13→19:28)
[2023-01-31] MEDS: Albuterol/Iprat 2.5/0.5MG 3 ML AMPUL.NEB INHALE ×4 (08:17→19:43)
[2023-01-31] MEDS: cefTRIAXone sodium 1 GM in 0.9 % Sodium Chloride 50 ML IV (10:38)
--- NOTE | 2023-01-31 10:50 | P.PNIM_ITS ---
Subjective Subjective Date of Service: 01/31/23 Interval History: a bit better today, still with sob and cough Physical Exam 2 Vital Signs: Vital Signs: Last Vital Signs Temp 97.2 F 01/31/23 07:12 Pulse 67 01/31/23 08:17 Resp 18 01/31/23 08:17 BP 149/80 H 01/31/23 07:12 Pulse Ox 97 01/31/23 07:12 O2 Del Method Room Air 01/31/23 07:12 O2 Flow Rate 3 01/31/23 03:11 BMI result Body Mass Index 23.9 General: AO X 3, no acute distress Resp: diminished bilateral, no accessory muscles used CVS: S1,S2,RRR GI: soft, non tender, non distended Neuro: motor grossly intact, alert Psych: appropriate affect, appropriate insight Objective Data Active Medications Acetaminophen (Acetaminophen 325 Mg Tablet) 650 mg PO Q6H PRN PRN Reason: Pain, Mild (Pain Scale 1-3) Last Admin: 01/30/23 06:30 Dose: 650 mg Documented By: LUKE Albuterol/Ipratropium (Albuterol/Iprat 2.5/0.5mg 3 Ml Ampul.Neb) 3 ml INHALE RQ4H WHILE AWAKE [facility] Last Admin: 01/31/23 08:17 Dose: 3 ml Documented By: AISLINN Albuterol/Ipratropium (Albuterol/Iprat 2.5/0.5mg 3 Ml Ampul.Neb) 3 ml INHALE Q4H PRN PRN Reason: Wheezing Aspirin (Aspirin Enteric Coated 81 Mg Tablet.) 81 mg PO DAILY [facility] Last Admin: 01/31/23 08:12 Dose: 81 mg Documented By: OG Azithromycin (Azithromycin 500 Mg Tablet) 500 mg PO MOWEFR@0900 [facility] Last Admin: 01/30/23 08:39 Dose: 500 mg Documented By: COOPEB Benzonatate (Benzonatate 100 Mg Capsule) 200 mg PO TID PRN PRN Reason: Cough Last Admin: 01/30/23 20:47 Dose: 200 mg Documented By: ANYA Clopidogrel Bisulfate (Clopidogrel Bisulfate 75 Mg Tablet) 75 mg PO DAILY [facility] Last Admin: 01/31/23 08:12 Dose: 75 mg Documented By: OG Enoxaparin Sodium (Enoxaparin Sodium 40 Mg/0.4 Ml Syringe) 40 mg SUBCUT Q24H [facility] Last Admin: 01/31/23 08:12 Dose: 40 mg Documented By: OG Ceftriaxone Sodium 1 gm/ (Sodium Chloride) 50 mls @ 100 mls/hr IV Q24H [facility] Last Admin: 01/31/23 10:38 Dose: 100 mls/hr Documented By: OG Melatonin (Melatonin 3 Mg Tablet) 6 mg PO BEDTIME PRN PRN Reason: Insomnia Last Admin: 01/30/23 22:42 Dose: 6 mg Documented By: ANYA Methylprednisolone Sodium Succinate (Methylprednisolone Sod Succ 40 Mg/Ml Vial) 40 mg IVPUSH Q12H [facility] Last Admin: 01/31/23 06:02 Dose: 40 mg Documented By: ANYA Ondansetron HCl (Ondansetron Hcl 4 Mg/2 Ml Vial) 4 mg IVPUSH Q8H PRN PRN Reason: Nausea and Vomiting Sodium Chloride (0.9 % Sodium Chloride Flush 3 Ml Syringe) 3 ml IVFLUSH QSHIFT [facility] Last Admin: 01/31/23 08:13 Dose: 3 ml Documented By: OG Labs 01/31/23 06:11 01/31/23 06:11 Labs: Laboratory Results - last 24 hr 01/31/23 06:11 MCV 93.8 MCH 30.2 MCHC 32.2 RDW 14.4 Plt Count 230 MPV 10.3 Absolute Nucleated RBC 0.000 Nucleated RBC % (auto) 0.0 Anion Gap 10 L Estim Creat Clear Calc 66.5 Estimated GFR > 60 Fasting Glucose 119 H Calcium 8.4 Microbiology Microbiology Results: Microbiology 01/29/23 17:51 Blood Culture - Preliminary Blood - Venous No growth after 24 hours. 01/29/23 16:20 Blood Culture - Preliminary Blood - Venous No growth after 24 hours. Assessment and Plan (1) Sepsis: Status: Acute Plan 77M PMH chronic hypoxic respiratory failured due to copd, pvd, presented with sob, cought Acute on chronic hypoxic respiratory failure secondary to COPD with acute decompensation IV Solu-Medrol, bronchodilators, ceftriaxone, azithromycin Wean O2 as tolerated Peripheral vascular disease Dual antiplatelet and statin DVT prophylaxis with Lovenox reason for continued hospitalization: though somewhat improved, still with cough and significant sob with minimal exertion Quality Stroke Does the patient have a stroke diagnosis?: No VTE Prior VTE?: No VTE Risk Level:: Medical - moderate - high VTE Device Contraindication: Treatment Not Indicated VTE Drug Contraindication: N/A - Med Ordered
[2023-01-31] MEDS: Acetaminophen 325 MG TABLET 650 MG PO (19:37)
[2023-01-31] MEDS: Melatonin 3 MG TABLET 6 MG PO (19:37)
[2023-01-31] MEDS: Benzonatate 100 MG CAPSULE 200 MG PO (19:37)
--- NOTE | 2023-01-31 19:54 | MHC.PIE ---
p; pt c /o pain 10/01 to abd burning. pt also c/o coughing i; prn tyenol and tessalon given i; dr almonte notified; new order bentyl now e; will cont to monitor
[2023-01-31] MEDS: Dicyclomine HCl 10 MG CAPSULE PO (19:57)
[2023-02-01] VITALS (8 sets, daily range): BP systolic 132–180; BP diastolic 70–80; PULSE 62–103; RESP 16–20; TEMP 36–36.4; O2SAT 94–100
[2023-02-01] MEDS: methylPREDNISolone Sod Succ 40 MG/ML VIAL IVPUSH ×2 (06:05→17:22)
[2023-02-01] MEDS: Albuterol/Iprat 2.5/0.5MG 3 ML AMPUL.NEB INHALE ×4 (08:02→19:21)
[2023-02-01] MEDS: Azithromycin 500 MG TABLET PO (08:30)
[2023-02-01] MEDS: Clopidogrel Bisulfate 75 MG TABLET PO (08:31)
[2023-02-01] MEDS: Aspirin Enteric Coated 81 MG TABLET.DR PO (08:31)
[2023-02-01] MEDS: 0.9 % Sodium Chloride Flush 3 ML SYRINGE IVFLUSH ×3 (08:31→23:27)
[2023-02-01] MEDS: Enoxaparin Sodium 40 MG/0.4 ML SYRINGE SUBCUT (08:31)
[2023-02-01] MEDS: Omeprazole 40 MG CAPSULE.DR PO (08:33)
--- NOTE | 2023-02-01 08:57 | PC.NURSE ---
Pt c/o abd pain . Md Lagunas notified , CT of abd ordered
[2023-02-01] MEDS: cefTRIAXone sodium 1 GM in 0.9 % Sodium Chloride 50 ML IV (10:15)
--- NOTE | 2023-02-01 10:34 | P.PNIM_ITS ---
Subjective Subjective Date of Service: 02/01/23 Interval History: severe spigastric pain, still sob Physical Exam 2 Vital Signs: Vital Signs: Last Vital Signs Temp 97.1 F 02/01/23 07:23 Pulse 69 02/01/23 08:02 Resp 16 02/01/23 08:02 BP 180/79 H 02/01/23 07:23 Pulse Ox 98 02/01/23 07:23 O2 Del Method Nasal Cannula 02/01/23 07:23 O2 Flow Rate 3 02/01/23 07:23 BMI result Body Mass Index 23.9 General: AO X 3, in pain Resp: diminished bilateral, no accessory muscles used CVS: S1,S2,RRR GI: soft, epigatric tender, non distended Neuro: motor grossly intact, alert Psych: appropriate affect, appropriate insight Objective Data Active Medications Acetaminophen (Acetaminophen 325 Mg Tablet) 650 mg PO Q6H PRN PRN Reason: Pain, Mild (Pain Scale 1-3) Last Admin: 01/31/23 19:37 Dose: 650 mg Documented By: JAMES Albuterol/Ipratropium (Albuterol/Iprat 2.5/0.5mg 3 Ml Ampul.Neb) 3 ml INHALE RQ4H WHILE AWAKE [facility] Last Admin: 02/01/23 08:02 Dose: 3 ml Documented By: AISLINN Albuterol/Ipratropium (Albuterol/Iprat 2.5/0.5mg 3 Ml Ampul.Neb) 3 ml INHALE Q4H PRN PRN Reason: Wheezing Aspirin (Aspirin Enteric Coated 81 Mg Tablet.) 81 mg PO DAILY [facility] Last Admin: 02/01/23 08:31 Dose: 81 mg Documented By: OG Azithromycin (Azithromycin 500 Mg Tablet) 500 mg PO MOWEFR@0900 [facility] Last Admin: 02/01/23 08:30 Dose: 500 mg Documented By: OG Benzonatate (Benzonatate 100 Mg Capsule) 200 mg PO TID PRN PRN Reason: Cough Last Admin: 01/31/23 19:37 Dose: 200 mg Documented By: JAMES Clopidogrel Bisulfate (Clopidogrel Bisulfate 75 Mg Tablet) 75 mg PO DAILY [facility] Last Admin: 02/01/23 08:31 Dose: 75 mg Documented By: OG Enoxaparin Sodium (Enoxaparin Sodium 40 Mg/0.4 Ml Syringe) 40 mg SUBCUT Q24H [facility] Last Admin: 02/01/23 08:31 Dose: 40 mg Documented By: OG Ceftriaxone Sodium 1 gm/ (Sodium Chloride) 50 mls @ 100 mls/hr IV Q24H [facility] Last Admin: 02/01/23 10:15 Dose: 100 mls/hr Documented By: OG Melatonin (Melatonin 3 Mg Tablet) 6 mg PO BEDTIME PRN PRN Reason: Insomnia Last Admin: 01/31/23 19:37 Dose: 6 mg Documented By: JAMES Methylprednisolone Sodium Succinate (Methylprednisolone Sod Succ 40 Mg/Ml Vial) 40 mg IVPUSH Q12H [facility] Last Admin: 02/01/23 06:05 Dose: 40 mg Documented By: JAMES Omeprazole (Omeprazole 40 Mg Capsule.Dr) 40 mg PO DAILY@0630 [facility] Last Admin: 02/01/23 08:33 Dose: 40 mg Documented By: OG Ondansetron HCl (Ondansetron Hcl 4 Mg/2 Ml Vial) 4 mg IVPUSH Q8H PRN PRN Reason: Nausea and Vomiting Sodium Chloride (0.9 % Sodium Chloride Flush 3 Ml Syringe) 3 ml IVFLUSH QSHIFT [facility] Last Admin: 02/01/23 08:31 Dose: 3 ml Documented By: OG Labs 01/31/23 06:11 01/31/23 06:11 Microbiology Microbiology Results: Microbiology 01/29/23 17:51 Blood Culture - Preliminary Blood - Venous No growth after 48 hours. 01/29/23 16:20 Blood Culture - Preliminary Blood - Venous No growth after 48 hours. Assessment and Plan (1) Sepsis: Status: Acute Plan 77M PMH chronic hypoxic respiratory failured due to copd, pvd, presented with sob, cought Acute on chronic hypoxic respiratory failure secondary to COPD with acute decompensation IV Solu-Medrol, bronchodilators, ceftriaxone, azithromycin Wean O2 as tolerated epigastric pain empiric ppi check CT abd Peripheral vascular disease Dual antiplatelet and statin DVT prophylaxis with Lovenox reason for continued hospitalization: severe epigastric pain today, and still sob Quality Stroke Does the patient have a stroke diagnosis?: No VTE Prior VTE?: No VTE Risk Level:: Medical - moderate - high VTE Device Contraindication: Treatment Not Indicated VTE Drug Contraindication: N/A - Med Ordered
[2023-02-01] MEDS: iohexoL 350 MG/ML 100 ML INFUS..BTL IV (12:05)
--- NOTE | 2023-02-01 15:10 | MHC.CM.PN ---
PER MD ROUNDS, PT LIKELY TO BE READY TO DC TOMORROW DCP REMAINS HOME WITH [facility] WITHOUT [facility] REFERRAL OUT TO [facility] TO TRANSPORT
[2023-02-01] MEDS: Acetaminophen 325 MG TABLET 650 MG PO (23:25)
[2023-02-01] MEDS: Melatonin 3 MG TABLET 6 MG PO (23:26)
[2023-02-02 03:57] VITALS: BP 126/58; PULSE 86; RESP 17; TEMP 36.5; O2SAT 94
[2023-02-02] MEDS: Omeprazole 40 MG CAPSULE.DR PO (05:47)
[2023-02-02] MEDS: methylPREDNISolone Sod Succ 40 MG/ML VIAL IVPUSH (05:47)
[2023-02-02 05:57] LABS: Hematocrit 35.4 % (42.0-52.0); Hemoglobin 11.5 g/dl (14.0-18.0); Mean Corpuscular HGB Conc 32.5 g/dl (31.0-36.0); Mean Corpuscular Hemoglobin 30.3 pg (27.0-33.0); Mean Corpuscular Volume 93.2 fL (80.0-98.0); Mean Platelet Volume 10.5 fL (9.4-12.4); Platelet Count 214 X10*3/uL (160-400); Red Cell Distribution Width 14.5 % (11.0-16.0)
[2023-02-02 06:10] LABS: Anion Gap 9 (12-20); Blood Urea Nitrogen 31 mg/dL (9-16); Calcium 8.2 mg/dL (8.4-10.2); Carbon Dioxide 27 mmol/L (22-29); Chloride 108 mmol/L (96-108); Creatinine Clr Calc Pharmacy 79.3; Estimated Glomerular Filt Rate > 60; Glucose Fasting 114 mg/dL (60-99); Potassium 4.2 mmol/L (3.3-5.1); Sodium 140 mmol/L (135-145)
[2023-02-02 07:40] VITALS: BP 172/90; PULSE 76; TEMP 36.9; O2SAT 96
[2023-02-02 08:14] VITALS: PULSE 78; RESP 18; O2SAT 95
[2023-02-02] MEDS: Albuterol/Iprat 2.5/0.5MG 3 ML AMPUL.NEB INHALE ×2 (08:14→11:28)
[2023-02-02] MEDS: Aspirin Enteric Coated 81 MG TABLET.DR PO (08:45)
[2023-02-02] MEDS: Clopidogrel Bisulfate 75 MG TABLET PO (08:46)
[2023-02-02] MEDS: Enoxaparin Sodium 40 MG/0.4 ML SYRINGE SUBCUT (08:46)
[2023-02-02] MEDS: 0.9 % Sodium Chloride Flush 3 ML SYRINGE IVFLUSH (08:47)
--- NOTE | 2023-02-02 09:30 | P.DS_ITS ---
DS: Providers Provider Date of Service: 02/02/23 Date of admission: 01/29/23 23:16 Primary care physician: Go Zamora MD Consults: 01/30/23 01:46 Consult to Pulmonology Routine Consulting Provider: [facility] Pulmonology Services Reason for consultation: COPD exacerbation DS: Diagnosis Discharge Diagnosis (1) Sepsis: Status: Acute DS: Summary Hospital Course Hospital Course: from initial hpi: 77-year-old male with pertinent history of chronic hypoxemic respiratory failure due to COPD, peripheral arterial disease who presents to the emergency department for evaluation of dyspnea. Patient states he started having dyspnea on the day of presentation which was progressive throughout the day. Also associated with wheezing and nonproductive cough. He used his home inhaler without relief. Patient states he is compliant with his home medications. No fever, chills, chest discomfort, palpitations, abdominal pain, changes in urinary or bowel habits. Of note, patient was recently admitted on 11/08 with acute hypoxemic respiratory failure due to COPD exacerbation and pneumonia and discharged home on 11/14 with p.o. antibiotics and p.o. prednisone. In the emergency department, patient with continued wheezing despite multiple DuoNeb treatments hospital course: Patient was admitted for acute on chronic hypoxic respiratory failure secondary to COPD with acute decompensation. He was seen by Pulmonary. He was given IV steroids, bronchodilators, ceftriaxone azithromycin and O2 was weaned to baseline. Patient's shortness of breath improved to baseline. He will be discharged on 5 more days of prednisone. For peripheral vascular disease was continued on dual antiplatelet and statin. Patient did have some epigastric pain during hospitalization CT abdomen was done which showed chronic AAA which should be followed as outpatient about 6 months. Pain improved. Patient will be discharged home with services Time Attestation Discharge coordination time: Greater than 30 minutes Quality: Safe Use of Opioids Does Pt have an Active Cancer Diagnosis on the Problem List?: No Quality: Stroke Does the patient have a stroke diagnosis?: No Physical Exam Vital Signs: Vital Signs: Last Vital Signs Temp 98.5 F 02/02/23 07:40 Pulse 78 02/02/23 08:14 Resp 18 02/02/23 08:14 BP 172/90 H 02/02/23 07:40 Pulse Ox 96 02/02/23 07:40 O2 Del Method Nasal Cannula 02/02/23 07:40 O2 Flow Rate 2 02/02/23 07:40 BMI result Body Mass Index 23.9 General: AO X 3, no acute distress Resp: diminished bilateral, no accessory muscles used CVS: S1,S2,RRR GI: soft, non tender, non distended Neuro: motor grossly intact, alert Psych: appropriate affect, appropriate insight DS: Data Data Completed and Pending Labs on day of discharge: Laboratory Results - last 24 hr 02/02/23 05:47 WBC 9.0 RBC 3.80 L Hgb 11.5 L Hct 35.4 L MCV 93.2 MCH 30.3 MCHC 32.5 RDW 14.5 Plt Count 214 MPV 10.5 Absolute Nucleated RBC 0.000 Nucleated RBC % (auto) 0.0 Sodium 140 Potassium 4.2 Chloride 108 Carbon Dioxide 27 Anion Gap 9 L BUN 31 H Creatinine 0.78 Estim Creat Clear Calc 79.3 Estimated GFR > 60 Fasting Glucose 114 H Calcium 8.2 L Preliminary micro results at discharge 01/29/23 17:51 Blood Culture - Preliminary Blood - Venous No growth after 48 hours. 01/29/23 16:20 Blood Culture - Preliminary Blood - Venous No growth after 48 hours. Discharge Plan Discharge Anticipated Discharge Date/Time: 02/02/23 09:26 Patient Disposition: Home Health Service Discharge Diagnosis: copd Referrals: [facility] [Outside] Go Zamora MD [Primary Care Provider] - 1 Week Discharge Medications: New prednisone 20 mg tablet 40 mg PO DAILY Qty: 10 0RF Continued clopidogrel 75 mg tablet 75 mg PO DAILY albuterol sulfate [Ventolin HFA] 90 mcg/actuation HFA aerosol inhaler 2 puff inhalation Q6H PRN (Reason: Shortness Of Breath Or Wheezing) azithromycin 500 mg tablet 500 mg PO MOWEFR@0900 Hold Instructions: Resume on 11/21/22. Trelegy Ellipta 100-62.5-25 mcg blister with device 1 ea inhalation DAILY aspirin 81 mg Tablet,Delayed Release (Dr/Ec) 81 mg PO DAILY (DME) nebulizers Misc See Rx Instructions .Route Qty: 1 0RF Rx Instructions: As directed phenylephrine-guaifenesin 2.5-100 mg/5 mL Liquid 20 ml PO Q6H PRN (Reason: Cough) ipratropium-albuterol 0.5 mg-3 mg(2.5 mg base)/3 mL solution for nebulization 3 ml inhalation QID Discharge Orders: Discharge Order (Routine); Ordered 02/02/23 Ordered By: Milton Lagunas Diet: Advance to usual diet Activity on Discharge: As tolerated Stand Alone Forms: Patient Portal Discharge page Care Plan Goals: [facility] Concerns: copd Plan of Treatment: 5 more days prednisone Assessment: see above Discharge Date/Time: 02/02/23 12:27
--- NOTE | 2023-02-02 09:52 | MHC.CM.PN ---
PT WILL DC HOME TODAY WITH [facility] TO TRANSPORT
--- NOTE | 2023-02-02 09:57 | P.F2F_ITS ---
Service Date Service Date: 02/02/23 Encounter Date of encounter: 02/02/23 Reasons for Services Signs and symptoms assessed: unsteady Reason for chcf: medication management, medication treatment and teach disease management Homebound: Leaving the home is medically contraindicated at this time without the asist of a device and/or another person due th the listed conditions above and below. Reason homebound: unsteady gait / fall risk Certification: Based on the above findings, I certify that this patient is confined to the home and needs intermittent chcf care, physical therapy and/or speech therapy, or continues to need occupational therapy. The patient is under my care, and I have initiated the establishment of the plan of care. The patient will be followed by a physician who will periodically review the plan of care. Time Spent With Patient Time: Total time managing care of this patient today ____ minutes.
[2023-02-02] MEDS: cefTRIAXone sodium 1 GM in 0.9 % Sodium Chloride 50 ML IV (10:56)
[2023-02-02 11:30] VITALS: PULSE 85; RESP 18; O2SAT 94
== END 2023-02-02 12:27 | disposition home health service (06) | DRG 190 ==
LOC: HO.ED 16:50 → HO.EDOVER 01-30 07:12 → HO.S3 01-30 13:33
PROVIDERS: Physician Assistant Medical; Student in an Organized Health Care Education/Training Program; Admitting Provider Student in an Organized Health Care Education/Training Program; Emergency Provider Internal Medicine; PCP Internal Medicine; Visit Provider Internal Medicine
DX: J43.9 Emphysema, unspecified (principal); J96.21 Acute and chronic respiratory failure with hypoxia; E87.20 Acidosis, unspecified; J98.11 Atelectasis; Z23 Encounter for immunization; I73.9 Peripheral vascular disease, unspecified; Z20.822 Contact with and (suspected) exposure to COVID-19; Z87.891 Personal history of nicotine dependence; Z79.02 Long term (current) use of antithrombotics/antiplatelets; Z79.82 Long term (current) use of aspirin; Z79.899 Other long term (current) drug therapy
CPT/HCPCS: 0241U; 36415; 71046; 71250; 74177; 80048; 80053; 81001; 82803; 83605; 83735; 83880; 84484; 85025; 85027; 85610; 85730; 87040; 90686; 93005; 94640; 99285; J0696; J1650; J2543; J2920; J2930; Q9967

== ENCOUNTER → 2023-01-29 23:16 | Outpatient (BNV) | payer MEDICARE, SELFPAY | PROVIDERS: Admitting Provider Student in an Organized Health Care Education/Training Program; Emergency Provider Internal Medicine; PCP Internal Medicine; Visit Provider Internal Medicine | DX: J44.9 Chronic obstructive pulmonary disease, unspecified (principal); I73.9 Peripheral vascular disease, unspecified; J96.91 Respiratory failure, unspecified with hypoxia; T17.500A Unspecified foreign body in bronchus causing asphyxiation, initial encounter | CPT/HCPCS: 99222 ==

== ENCOUNTER → 2023-01-29 23:16 | Outpatient (BNV) | payer MEDICARE, SELFPAY | PROVIDERS: Admitting Provider Student in an Organized Health Care Education/Training Program; Emergency Provider Internal Medicine; PCP Internal Medicine; Visit Provider Student in an Organized Health Care Education/Training Program | DX: A41.9 Sepsis, unspecified organism (principal) | CPT/HCPCS: 99222; 99232; 99233; 99239; G0180 ==

== ENCOUNTER 2023-02-11 13:17 | Outpatient (AMB) | payer MEDICARE, SELFPAY ==
[2023-02-11 14:05] VITALS: BP 130/70; PULSE 96; O2SAT 91
--- NOTE | 2023-02-11 14:05 | A.OFFVIS_ITS ---
Intake Vital Signs 02/11/23 14:05 Height 5 ft 9 in BP 130/70 Blood Pressure Location Lt brachial Position Sitting Pulse 96 Pulse Source Pulse Oximeter Pulse Oximetry (%) 91 L Oxygen Delivery Method Nasal Cannula Oxygen Flow Rate 2 Intake Visit Reasons: Emphysema Intake Note: pt is here for follow up and states he is having pain from chest to lower abd. area, last night tears to his eyes it was so bad. He was in hopsital for a few days, fluid in lungs and gallstones. 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 HE HAD STAYS ON OXYGEN 2 L/MINUTE. 24 HOURS A DAY . HE HAS BEEN USING DUONEB UPDRAFTS 4 T IMES A DAY IN ADDITION TO TRELEGY ELLIPTA 1 INHALATION DAILY. REMAINS WEAK AND TIRED AND IN THE HOUSE CAN WALK AROUND WITH CANE OR WALKER OR HOLDING ON TO SOMETHING. HE COMES TO THE OFFICE IN A WHEELCHAIR. BREATHING KNOTT HE REMAINED SHORT OF BREATH BUT NO ACUTE CHANGES NOTED. COUGH IS MINIMAL. AND THERE HAS BEEN NOT MUCH EXPECTORATION HIS MAIN COMPLAINT IS UPPER ABDOMINAL PAIN WHICH WAS WORSE DURING THE NIGHT. THIS IS RELATED TO GALLSTONES AND OR ABDOMINAL AORTIC ANEURYSM, AND DOES NOT SEEM TO BE RELATED TO HIS LUNGS. . HE REMAINS WEAK AND TIRED [facility] Medical History Respiratory failure with hypoxia COPD (chronic obstructive pulmonary disease) Mucus plugging of bronchi PAD (peripheral artery disease) AAA (abdominal aortic aneurysm) without rupture Emphysema lung Social History Household Members: Spouse Housing: House Do you presently have visiting nurse or other home services: No Alcohol intake: never Patient Tobacco Use Status: Former Tobacco user Quit Date: 7 years Tobacco use type: Cigarette service: No Review of Systems Const All systems reviewed & are unremarkable except as noted in HPI and below Eyes Reports no additional complaints ENT Reports no additional complaints Card Denies chest pain, Denies irregular heart rhythm, Denies leg edema and Reports dyspnea on exertion Resp Reports as per HPI and Reports dyspnea on exertion GI Reports constipation and Reports dyspepsia Reports no additional complaints Musc Reports other (GENERAL WEAKNESS) Skin/Breast Reports system reviewed and no additional complaints, except as documented Neuro Reports no additional complaints Psych Reports no additional complaints Physical Exam Vital Signs: Last Vital Signs Pulse 96 02/11/23 14:05 BP 130/70 02/11/23 14:05 Pulse Ox 91 L 02/11/23 14:05 Oxygen Delivery Method Nasal Cannula 02/11/23 14:05 Oxygen Flow Rate 2 02/11/23 14:05 Last Vital Signs Temp 97.8 F 01/30/23 08:38 Pulse 109 H 01/30/23 08:38 Resp 24 H 01/30/23 08:38 BP 131/68 01/30/23 08:38 Pulse Ox 94 01/30/23 08:38 O2 Del Method Nasal Cannula 01/30/23 08:38 O2 Flow Rate 3 01/30/23 08:38 BMI result Body Mass Index 23.9 Const General: comfortable (Except for shortness of breath during conversation), no acute distress, alert and awake Orientation/consciousness: patient oriented x3 HEENT Head: Yes normal to inspection General nose exam: No nasal polyps present and No nasal discharge present Face and sinus: Yes sinuses nontender Mouth: oropharynx normal Teeth and gingiva: edentulous Throat: Yes posterior oropharynx normal Eyes General: appearance normal, both eyes and all related structures Neck Neck: Yes normal visual inspection, Yes no lymphadenopathy, Yes trachea midline and Yes no JVD Thyroid: Thyroid normal Chest Chest palpation & inspection: normal inspection of the chest, normal palpation of entire chest wall and no tenderness Resp Other: PERCUSSION NOTE IS RESONANT, BREATH SOUNDS ARE VERY DISTANT, ESPECIALLY OVER THE RIGHT LOWER LOBE AND LEFT BASE, WITH PROLONGED EXPIRATORY PHASE. NO WHEEZES OR CREPITATIONS ARE HEARD TODAY. Cardio Palpation: normal PMI Rate: regular rate Rhythm: regular rhythm Heart sounds: no gallops and no murmurs GI Palpation (GI): Soft to palpation, nontender, No hepatosplenomegaly present and no masses Auscultation: normal bowel sounds Back/Spine/Pelvis Thoracic/Lumbar Spine: thoracic and lumbar spine normal to inspection and thoraco-lumbar ROM limited Skin General skin exam: no rashes or lesions noted Neuro General: patient oriented x3 and no focal motor deficits Cranial nerves: Yes CN's II-XII intact bilaterally Extrem General: Yes normal to inspection, Yes no clubbing, cyanosis or edema and Yes no calf tenderness Psych Other: POOR GENERAL HYGIENE Appearance: disheveled Mental Status: mental status grossly normal Speech and movement: Normal speech and movement present Results Reviewed Results Reviewed: CHEST CT ON 01/29/23 No significant change since most recent prior CT of the chest done on 11/08/2022. 2. Reidentified extensive emphysematous disease predominantly involving both upper lobes. Superimposed indeterminate right lower lobar bronchial/peribronchiolar soft tissue opacity and nonspecific indeterminate soft tissue opacity at left lower lobe of the lung appear unchanged. Differential remains infectious, inflammatory process/mucus plugging as well as neoplasm. 3. Multiple calcified gallstones and numerous stable presumed hepatic cysts. Assessment & Plan Assessment & Plan (1) COPD (chronic obstructive pulmonary disease): Comment: PATIENT HAS ADVANCED CHRONIC OBSTRUCTIVE PULMONARY DISEASE. HE IS PRONE TO HAVE RECURRENT RESPIRATORY INFECTIONS. RECENTLY TREATED FOR AN ACUTE EXACERBATION, IN THE HOSPITAL. NOW HE SEEMS TO BE AT HIS BASELINE, BUT HAS SIGNIFICANT RESPIRATORY IMPAIRMENT. TX : CONTINUE TRELEGY ELLIPTA 1 INHALATION DAILY. IPRATROPIUM- ALBUTEROL INHALATION SOLUTION IN THE NEBULIZER Q 6 HOURS WHILE AWAKE ( AT LEAST 3 TIMES A DAY ) Code(s): J44.9 - Chronic obstructive pulmonary disease, unspecified Plan: ABOVE (2) Respiratory failure with hypoxia: Comment: O2 2 L/MINUTE AT REST AND 3 L/MINUTE WHEN OUTDOORS OR WALKING AROUND. USE O2 AT NIGHT WELL. Code(s): J96.91 - Respiratory failure, unspecified with hypoxia Plan ABOVE Patient Instructions: HAD A DETAILED DISCUSSION ABOUT HIS LUNG DISEASE WELL THE ABDOMINAL PAIN. I TOLD HIM THAT THE PULMONARY STATUS IS STABLE EXPECTED. THE PAIN SEEMS TO BE RELATED TO HIS GALLSTONE OR ABDOMINAL AORTIC ANEURYSM. HE SHOULD TRY TO STAY ON LOW-FAT DIET. HE ALSO HAS APPOINTMENT WITH THE VASCULAR SURGEON DR. WEAVER NEXT WEEK. I WILL SEE HIM BACK IN 2 MONTHS AGO Coding Level of Care Code Est Pt Level 3 (48410) Diagnoses COPD (chronic obstructive pulmonary disease) J44.9 Respiratory failure with hypoxia J96.91
== END 2023-02-11 14:36 | disposition home or self-care (01) ==
PROVIDERS: PCP Internal Medicine; Visit Provider Internal Medicine
DX: J44.9 Chronic obstructive pulmonary disease, unspecified (principal); J96.91 Respiratory failure, unspecified with hypoxia
CPT/HCPCS: 99213

== ENCOUNTER → 2023-02-11 13:17 | Outpatient (BNVA) | payer MEDICARE, SELFPAY | PROVIDERS: PCP Internal Medicine; Visit Provider Internal Medicine | DX: J43.9 Emphysema, unspecified (principal); J96.91 Respiratory failure, unspecified with hypoxia; R46.0 Very low level of personal hygiene; Z99.81 Dependence on supplemental oxygen; Z87.891 Personal history of nicotine dependence | CPT/HCPCS: 99212 ==

== ENCOUNTER 2023-02-19 12:56 | Outpatient (AMB) | payer MEDICARE, SELFPAY ==
--- NOTE | 2023-02-19 13:07 | A.OFFVIS_ITS ---
Intake Vital Signs 02/19/23 13:10 Height 5 ft 9 in Weight 158 lb BMI 23.3 Intake Visit Reasons: arterial US follow up Intake Note: pt here for 2 week arterial FU hx of AAA 4.5cm and hx of left LE angio/stent placement. Pt says he is not doing good he says he is having alot of abdominal pain that travel up his asophagus he was recomended to see GI Allergies No Known Allergies Allergy (Verified 02/11/23 14:09) HPI arterial US follow up HPI Details Very pleasant 77-year-old gentleman presents for follow-up regarding peripheral vascular disease. He had originally been seen in the hospital during a COPD exacerbation and was discovered to have an abdominal aortic aneurysm. Upon my workup he was noted to have prior endovascular treatment by Dr. Feliciano many years prior. He was lost to follow-up. He now presents for follow-up regarding his peripheral vascular disease. Of note he is O2 dependent. His biggest complaint at the time of my visit was his reflux in inability to hold food down. He was having difficulty getting in with a GI doctor. He now presents to us for follow-up. [facility] Medical History Respiratory failure with hypoxia COPD (chronic obstructive pulmonary disease) Mucus plugging of bronchi PAD (peripheral artery disease) AAA (abdominal aortic aneurysm) without rupture Emphysema lung Social History Household Members: Spouse Housing: House Do you presently have visiting nurse or other home services: No Alcohol intake: never Patient Tobacco Use Status: Former Tobacco user Quit Date: 7 years Tobacco use type: Cigarette service: No Review of Systems Const All systems reviewed & are unremarkable except as noted in HPI and below Reports no additional complaints ENT Reports Normal hearing present Card Denies chest pain, Denies chest pain at rest, Denies chest pain with activity and Denies pedal edema Resp Denies cough GI Denies abdominal pain Musc Denies abnormal gait, Denies muscle cramps and Denies radiating pain into limb Skin/Breast Denies skin ulcer and Denies wounds Neuro Reports Normal hearing present and Denies abnormal gait Psych Reports no additional complaints Physical Exam Vital Signs: BMI result Body Mass Index 23.3 Const General: cooperative, healthy appearing and comfortable Orientation/consciousness: oriented to person, oriented to place and oriented to time HEENT Head: Yes normal to inspection Neck Neck: Yes normal visual inspection Carotids: no bruits Chest Chest palpation & inspection: normal inspection of the chest Resp Effort & Inspection: normal respiratory effort and able to speak in complete sentences Auscultation: clear to auscultation bilaterally, no crackles, no rales, no rhonchi and no wheezes Cardio Rate: regular rate Rhythm: regular rhythm Heart sounds: S1 normal heart sound present and S2 normal heart sound present Bruits: no carotid bruits Peripheral pulses: Peripheral pulses 2+ throughout GI Inspection: Yes normal to inspection Skin Wounds: no wounds Hair: normal Neuro General: oriented to person, oriented to place and oriented to time Cranial nerves: Yes CN's II-XII intact bilaterally and Yes Normal hearing present Cognition (Neuro): normal cognition Motor exam (neuro): 5/5 motor strength present throughout Extrem Other: venous exam: No significant superficial varicosities or spider telangiectasias, minimal edema General: No clubbing, No cyanosis and No edema Psych Appearance: grossly normal Mental Status: mental status grossly normal Speech and movement: Normal speech and movement present Results Reviewed Results Reviewed: Noninvasive arterial testing dated 01/14/2023 demonstrates EFRAÍN on the right of 1.11 and on the left of 1.0. Written report and images were reviewed. Assessment & Plan Assessment & Plan (1) AAA (abdominal aortic aneurysm) without rupture: Code(s): I71.40 - Abdominal aortic aneurysm, without rupture, unspecified Qualifiers: Abdominal aorta location: infrarenal aorta Qualified Code(s): I71.43 - Infrarenal abdominal aortic aneurysm, without rupture Plan: On CT scan was noted to have a 4.5 cm abdominal aortic aneurysm. Will schedule him for 1 year follow-up. (2) PAD (peripheral artery disease): Comment: Left SFA stent - unknown date Dr. Feliciano Code(s): I73.9 - Peripheral vascular disease, unspecified Plan: In short patient has stable claudication. I did review the pathophysiology of peripheral vascular disease with the patient. In addition we did discuss routine conservative measures including a healthy diet and the importance of exercise and ambulation. We did discuss risk factor modification. The patient will continue to to follow-up with surveillance follow-up in approximately 1 year. Thank you for allowing us to participate in this patient's care. If there are any questions or concerns please do not hesitate to contact us. (3) Reflux esophagitis: Code(s): K21.00 - Gastro-esophageal reflux disease with esophagitis, without bleeding Qualifiers: Esophagitis bleeding: without hemorrhage Qualified Code(s): K21.00 - Gastro-esophageal reflux disease with esophagitis, without bleeding Plan: Will try to get in with GI and expedite follow-up Orders: Orders US arterial duplex LE BI 364 Days I73.9 - Peripheral vascular disease, unspecified US abdominal aortic aneurysm 364 Days I71.43 - Infrarenal abdominal aortic aneurysm, without rupture Coding Level of Care Code Est Pt Level 4 (80110) Diagnoses Infrarenal abdominal aortic aneurysm (AAA) without rupture I71.43 Abdominal aorta location: infrarenal aorta PAD (peripheral artery disease) I73.9 Gastroesophageal reflux disease with esophagitis without hemorrhage K21.00 Esophagitis bleeding: without hemorrhage
[2023-02-19 13:10] VITALS: BMI 23.3
== END 2023-02-19 13:45 | disposition home or self-care (01) ==
PROVIDERS: PCP Internal Medicine; Visit Provider Surgery Vascular Surgery
DX: I71.43 Infrarenal abdominal aortic aneurysm, without rupture (principal); I73.9 Peripheral vascular disease, unspecified; K21.00 Gastro-esophageal reflux disease with esophagitis, without bleeding
CPT/HCPCS: 99213

== ENCOUNTER → 2023-02-19 12:56 | Outpatient (BNVA) | payer MEDICARE, SELFPAY | PROVIDERS: PCP Internal Medicine; Visit Provider Surgery Vascular Surgery | DX: I71.43 Infrarenal abdominal aortic aneurysm, without rupture (principal); I73.9 Peripheral vascular disease, unspecified; K21.00 Gastro-esophageal reflux disease with esophagitis, without bleeding | CPT/HCPCS: 99212 ==

== ENCOUNTER 2023-02-26 14:53 | Emergency (ER) | payer MEDICARE, OTHER, SELFPAY ==
--- NOTE | ~2023-02-26 | CT_ITS ---
EXAMINATION: CT ANGIOGRAM ABDOMEN AND PELVIS CLINICAL INFORMATION: AAA with history of peripheral vascular disease COMPARISON: CT abdomen pelvis 02/01/2023 TECHNIQUE: Multiple axial images were obtained through the abdomen and pelvis following the administration of 80 mL of Omnipaque 350 intravenous contrast. Images were reviewed on a dedicated 3-D workstation. This CT examination was performed using dose optimization techniques as appropriate, variously including the following: *Automated exposure control *Adjustment of mA and/or kV according to patient size (this includes techniques or standardized protocols for targeted exams where dose is matched to indication/reason for exam; i.e. extremities or head) *Use of iterative reconstruction technique DLP: 389 mGy-cm VASCULAR FINDINGS: The descending thoracic aorta is unremarkable. Atherosclerotic changes are present in the suprarenal aorta with calcified plaque. Again seen is a infrarenal abdominal aortic aneurysm ending at the aortic bifurcation. The size has probably not changed significantly with dimension of the aorta on the current study at 4.5 x 3.9 cm compared with 4.4 x 4.1 cm at the time of the prior study. There is no evidence of aortic leak or retroperitoneal hematoma. The celiac and SMA are patent. Concentric noncalcified plaque present in the SMA. No emboli. The HAIDER is patent. 2 renal arteries present on the right with a single renal artery on the left. No renal artery stenoses. Calcific atherosclerotic changes are seen in both common iliac arteries without stenosis. External iliac arteries demonstrate calcific plaque without stenosis. Common femoral arteries demonstrate mild atherosclerotic change. Femoral bifurcations are patent with proximal patent SFA and profundus. A stent is present in the proximal left SFA. NONVASCULAR FINDINGS: LUNG BASES: Severe emphysematous changes are present in the visualized lungs with scarring/atelectasis at both lung bases. LIVER, GALLBLADDER, AND BILIARY TREE: The liver is normal in size, shape, and attenuation. Multiple hepatic cysts are noted. No focal hepatic lesion or biliary ductal dilatation is present. The gallbladder contains multiple faceted calcified calculi without pericholecystic inflammatory changes. PANCREAS: Unremarkable. SPLEEN: Unremarkable. ADRENAL GLANDS: Unremarkable. KIDNEYS AND URETERS: The kidneys are normal in size, shape, and attenuation. Multiple bilateral benign Bosniak class I renal cysts are noted, left greater than right, which require no additional imaging or follow-up. No solid renal masses are seen. No hydronephrosis, hydroureter, or calculi seen. No perinephric stranding. BLADDER: Unremarkable. GASTROINTESTINAL TRACT: The small and large bowel are unremarkable. The appendix is unremarkable. ABDOMINAL WALL: No significant hernia is appreciated. LYMPH NODES: No retroperitoneal lymphadenopathy. PELVIC VISCERA: Mild prominence of the prostate. OSSEOUS STRUCTURES: Generative changes are seen throughout the spine. There is a hemangioma in the L1 vertebral body. No bony destructive lesions. CT/CT angio abdomen pelvis IMPRESSION: 1. Infrarenal abdominal aortic aneurysm measuring 4.5 x 3.9 cm, not significantly changed when compared to the prior study. Recommend followup by abdomen and pelvis CTA in 6 months, and vascular surgery referral/consultation if not already obtained. 2. Other incidental findings as described above including severe emphysema, hepatic and renal cysts, cholelithiasis, mild BPH and degenerative changes in the spine. Fleischner guidelines were followed.
[2023-02-26 15:11] VITALS: BP 156/81; PULSE 92; RESP 20; TEMP 36.5; O2SAT 93; BMI 23.5
--- NOTE | 2023-02-26 15:11 | ED.GENADULT ---
HPI - General Adult General Chief complaint: Abdominal Pain Stated complaint: Abd pain Time Seen by Provider: 02/26/23 22:31 Source: patient Mode of arrival: ambulatory History of Present Illness HPI narrative: This is a 77-year-old male who reports initiation of mid abdominal discomfort with nausea but no vomiting, denies any diarrhea or fevers. In addition, patient ran out of his oxygen while in the waiting area and was without oxygen for an extended period of time until the noted. Patient is currently feeling short of breath. Related Data Home Medications Medication Instructions Recorded Confirmed albuterol sulfate 90 mcg/actuation 2 puff inhalation Q6H PRN 11/08/22 01/29/23 aerosol inhaler (Ventolin HFA) Shortness Of Breath Or Wheezing aspirin 81 mg tablet,delayed 81 mg PO DAILY 11/08/22 01/29/23 release azithromycin 500 mg tablet 500 mg PO MOWEFR@0900 11/08/22 01/29/23 clopidogrel 75 mg tablet 75 mg PO DAILY 11/08/22 01/29/23 fluticasone fur. 100 mcg-umeclid 1 ea inhalation DAILY 11/08/22 01/29/23 62.5 mcg-vilant 25 mcg inhalat.powder (Trelegy Ellipta) ipratropium 0.5 mg-albuterol 3 mg 3 ml inhalation QID 01/29/23 01/29/23 (2.5 mg base)/3 mL nebulization wheezing/MUCOUS PLUGGING soln phenylephrine-guaifenesin 2.5 20 ml PO Q6H PRN Cough 01/29/23 01/29/23 mg-100 mg/5 mL oral liquid pravastatin 40 mg tablet 40 mg PO DAILY 02/11/23 Previous Rx's Medication Instructions Recorded nebulizers #1 ea 11/14/22 ketorolac 10 mg tablet 10 mg PO BID PRN pain 5 days #7 02/27/23 tabs Allergies Allergy/AdvReac Type Severity Reaction Status Date / Time No Known Allergies Allergy Verified 02/11/23 14:09 Review of Systems Review of Systems: Pertinent positives and negatives as stated in HPI [facility] Past Medical History Source: nursing notes reviewed Medical History Respiratory failure with hypoxia COPD (chronic obstructive pulmonary disease) Mucus plugging of bronchi PAD (peripheral artery disease) AAA (abdominal aortic aneurysm) without rupture Emphysema lung Social History Social History Household Members: Spouse Housing: House Do you presently have visiting nurse or other home services: No Alcohol intake: former Patient Tobacco Use Status: Former Tobacco user Quit Date: 7 years Tobacco use type: Cigarette Smoked in Last 30 Days: No Use of substances other than those prescribed or required for medical reasons: No Advance Directives: No Advance Directives Information Provided: No service: No Physical Exam ED Vital Signs: Vital Signs - 24 hr 02/26/23 15:11 02/26/23 22:33 Temperature 97.7 F 98.4 F Pulse Rate 92 90 Respiratory Rate 20 20 Blood Pressure 156/81 H 155/85 H Pulse Oximetry 93 97 Oxygen Delivery Method Nasal Cannula Nasal Cannula Oxygen Flow Rate 2 BMI result Body Mass Index 23.5 VITAL SIGNS: Reviewed. GENERAL: Well developed, well nourished, in no acute distress. HEAD: Normocephalic/atraumatic, EYES: PERRLA, EOMI EARS: Ext canals without abnormality NOSE: Nares patent bilateral OROPHARYNX: no oral lesions noted, posterior pharynx clear NECK: Supple, no adenopathy LUNGS: Tachypnea, coarse breath sounds, no rales. SpO2<97> CARDIOVASCULAR: Regular rate and rhythm without noted murmurs ABDOMEN: Soft, non-tender, non-distended with bowel sounds. No rigidity. No guarding. No palpable masses or hernias noted MUSCULOSKELETAL: No tenderness, deformities, or effusions noted on gross inspection. EXTREMITIES: No cyanosis, clubbing or edema. SKIN: Inspection of the skin reveals no rashes NEUROLOGIC: Alert and oriented x 4. Strength and sensation to light touch were grossly intact x 4. Course Course Course Narrative: This is a rapid medical exam: Additional HPI, ROS, PE not included below will be deferred to primary provider. Patient is a 77-year-old male with history of COPD, AAA, PAD presenting to the emergency department with complaint of 7/10 upper abdominal pain. Family states patient has been symptomatic for months, was referred to GI but appointment is not until June. Denies nausea, vomiting, diarrhea or constipation. Denies fevers. On O2 2lpm via [place] at baseline. Plan: labs, UA Medications Administered Discontinued Medications Generic Name Dose Route Start Last Admin Trade Name Freq PRN Reason Stop Dose Admin Iohexol 85 ml 02/26/23 23:39 02/26/23 23:40 Iohexol 350 Mg/Ml 100 Ml Infus..Btl IV 02/26/23 23:40 85 ml ONCE ONE Administration Ketorolac Tromethamine 15 mg 02/27/23 01:08 02/27/23 01:16 Ketorolac Tromethamine 30 Mg/Ml Vial IVPUSH 02/27/23 01:09 15 mg ONCE ONE Administration Medical Decision Making Medical Decision Making [facility] Narrative: 77-year-old male with history and clinical presentation, DDX: Aortic dissection, aortic leak, bowel ischemia, urinary retention, UTI I reviewed all investigations and hematologic indices do not demonstrate any leukocytosis or left shift but there is a small bump in platelets and otherwise normocytic anemia is stable and chronic. Chemistry indices are grossly within normal limits, there is no demonstrated TOMMY and electrolytes/liver enzyme are without derangement. Urinalysis negative for UTI. CT scan does not demonstrate any acute findings when compared to prior, notably there is no pericholecystic fluid there is noted cholelithiasis. Otherwise vasculature appears to be within stable condition, no hernias. On re-evaluation all results discussed with the patient at the bedside with his . Patient received IV Toradol with good improvement in pain and will be discharged with as needed medication. Differential Diagnosis Differential Diagnoses: The differential diagnosis associated with the presentation includes Please see the discussion above Admission/Observation Consideration of admission/observation: Escalation of care including admission/observation considered Please see the discussion above Lab Data [facility] Lab Attestation statement: I reviewed the patient's lab results. Please see the discussion above 02/26/23 15:28 02/26/23 15:29 Labs: Lab Results 02/26/23 02/26/23 02/26/23 Range/Units 15:28 15:29 22:47 WBC 5.6 (4.8-10.8) X10*3/uL RBC 4.16 L (4.60-5.80) X10*6/uL Hgb 12.5 L (14.0-18.0) g/dl Hct 39.9 L (42.0-52.0) % MCV 95.9 (80.0-98.0) fL MCH 30.0 (27.0-33.0) pg MCHC 31.3 (31.0-36.0) g/dl RDW 13.3 (11.0-16.0) % Plt Count 457 H D (160-400) X10*3/uL MPV 9.7 (9.4-12.4) fL Immature Gran % (Auto) 0.2 (0.0-0.4) % Neut % (Auto) 48.0 (45-73) % Lymph % (Auto) 27.6 (20-40) % [place] % (Auto) 18.6 H (2-11) % Eos % (Auto) 4.5 H (0-4) % Baso % (Auto) 1.1 (0-2) % Lymph # (Auto) 1.5 (1.2-4.9) X10*3/uL [place] # (Auto) 1.0 (0.1-1.2) X10*3/uL Eos # (Auto) 0.3 (0.0-0.4) X10*3/uL Baso # (Auto) 0.1 (0.0-0.2) X10*3/uL Abs Immat Gran (auto) 0.01 (0.00-0.03) X10*3/uL Absolute Neuts (auto) 2.7 (2.0-8.3) x10*3/uL Absolute Nucleated RBC 0.000 (0.0-0.012) X10*3/uL Nucleated RBC % (auto) 0.0 (0.0-0.2) /100WBC Sodium 140 (135-145) mmol/L Potassium 4.1 (3.3-5.1) mmol/L Chloride 103 (96-108) mmol/L Carbon Dioxide 27 (22-29) mmol/L Anion Gap 14 (12-20) BUN 23 H (9-16) mg/dL Creatinine 0.89 (0.5-1.4) mg/dL Estim Creat Clear Calc 69.5 Estimated GFR > 60 Random Glucose 92 (60-115) mg/dL Calcium 9.2 D (8.4-10.2) mg/dL Total Bilirubin 0.2 (0.0-1.0) mg/dL AST 14 (5-37) U/L ALT 16 (0-40) U/L Alkaline Phosphatase 67 (39-117) U/L Total Protein 7.7 (6.5-8.0) g/dL Albumin 3.9 (3.5-5.0) g/dL Urine Color Yellow Urine Appearance Clear Urine pH 5.5 (5.0-9.0) Ur Specific [place] 1.010 (1.005-1.025) Urine Protein Negative (Neg-Trace) mg/dL Urine Glucose (UA) Negative (Negative) mg/dL Urine Ketones Negative (Negative) mg/dL Urine Blood Trace H (Negative) Urine Nitrite Negative (Negative) Ur Leukocyte Esterase Negative (Negative) Urine RBC 0-2 (0-2) /HPF Urine WBC 0-5 (0-5) /HPF Ur Squamous Epith Cells 0-2 (0-2) /HPF Urine Bacteria None Seen (None Seen) Hyaline Casts 0-2 (0-2) /LPF Radiology Impression Discussion of test interpretation with radiology: I have reviewed the radiologist's reading. Radiologist Impression: Please see the discussion above Independent Historian Clinical information obtained from an independent historian. History obtained from or confirmed by: Spouse External Record Review External record reviewed: Inpatient record, Outpatient record, Prior outpatient labs and Prior outpatient radiology Chronic Conditions Patient?s care impacted by: Other COPD, PAD Critical Care Time Critical Care Time Critical Care Time: Yes Total Critical Care Time: 30 Attestation: I personally attest to this time spent taking care of the patient. Discharge Plan Discharge Clinical Impression: Abdominal pain, Musculoskeletal pain Patient Disposition: Home, Self-Care Instructions: Abdominal Pain (ED), Musculoskeletal Pain (ED) Additional Instructions: 1. Resume all home medications as prescribed. 2. Please follow-up with your primary care provider by calling the office 1st thing in the morning and setting up an appointment for re-evaluation further outpatient management. Return to the ER for any worsening symptoms. Prescriptions: New ketorolac 10 mg tablet 10 mg PO BID PRN (Reason: pain) 5 Days Qty: 7 0RF Rx Instructions: Patient received Toradol in the ER No Action clopidogrel 75 mg tablet 75 mg PO DAILY albuterol sulfate [Ventolin HFA] 90 mcg/actuation HFA aerosol inhaler 2 puff inhalation Q6H PRN (Reason: Shortness Of Breath Or Wheezing) azithromycin 500 mg tablet 500 mg PO MOWEFR@0900 Hold Instructions: Resume on 11/21/22. Trelegy Ellipta 100-62.5-25 mcg blister with device 1 ea inhalation DAILY aspirin 81 mg Tablet,Delayed Release (Dr/Ec) 81 mg PO DAILY (DME) nebulizers Misc See Rx Instructions .Route Qty: 1 0RF Rx Instructions: As directed phenylephrine-guaifenesin 2.5-100 mg/5 mL Liquid 20 ml PO Q6H PRN (Reason: Cough) ipratropium-albuterol 0.5 mg-3 mg(2.5 mg base)/3 mL solution for nebulization 3 ml inhalation QID pravastatin 40 mg tablet 40 mg PO DAILY Referrals: Go Zamora MD [Primary Care Provider] -
[2023-02-26 15:38] LABS: MANUAL DIFF FLAG NO
[2023-02-26 15:44] LABS: Basophils Absolute Auto 0.1 X10*3/uL (0.0-0.2); Basophils Percent Auto 1.1 % (0-2); Eosinophils Absolute Auto 0.3 X10*3/uL (0.0-0.4); Eosinophils Percent Auto 4.5 % (0-4); Hematocrit 39.9 % (42.0-52.0); Hemoglobin 12.5 g/dl (14.0-18.0); Imm Gran Abs Auto 0.01 X10*3/uL (0.00-0.03); Imm Gran Pct Auto 0.2 % (0.0-0.4); Lymphocytes Absolute Auto 1.5 X10*3/uL (1.2-4.9); Lymphocytes Percent Auto 27.6 % (20-40); Mean Corpuscular HGB Conc 31.3 g/dl (31.0-36.0); Mean Corpuscular Volume 95.9 fL (80.0-98.0); Mean Platelet Volume 9.7 fL (9.4-12.4); Monocytes Percent Auto 18.6 % (2-11); Neutrophils Absolute Auto 2.7 x10*3/uL (2.0-8.3); Platelet Count 457 X10*3/uL (160-400); Red Blood Count 4.16 X10*6/uL (4.60-5.80); Red Cell Distribution Width 13.3 % (11.0-16.0); White Blood Count 5.6 X10*3/uL (4.8-10.8)
[2023-02-26 15:56] LABS: Alanine Aminotransferase 16 U/L (0-40); Albumin Level 3.9 g/dL (3.5-5.0); Alkaline Phosphatase 67 U/L (39-117); Anion Gap 14 (12-20); Aspartate Amino Transferase 14 U/L (5-37); Bilirubin Total 0.2 mg/dL (0.0-1.0); Blood Urea Nitrogen 23 mg/dL (9-16); Calcium 9.2 mg/dL (8.4-10.2); Carbon Dioxide 27 mmol/L (22-29); Chloride 103 mmol/L (96-108); Creatinine Clr Calc Pharmacy 69.5; Estimated Glomerular Filt Rate > 60; Glucose Random 92 mg/dL (60-115); Potassium 4.1 mmol/L (3.3-5.1); Sodium 140 mmol/L (135-145); Total Protein 7.7 g/dL (6.5-8.0)
[2023-02-26 22:33] VITALS: BP 155/85; PULSE 90; RESP 20; TEMP 36.9; O2SAT 97
[2023-02-26 22:57] LABS: Appearance Urine Clear; Color Urine Yellow; Glucose Urine UA Negative (Negative); Leukocyte Esterase Urine Negative (Negative); Nitrite Urine Negative (Negative); PH 5.5 (5.0-9.0); UMIC TRIGGER UACC YES; Urine Blood Trace (Negative); Urine Ketones Negative (Negative); Urine Protein Negative (Neg-Trace)
[2023-02-26 23:10] LABS: Bacteria Urine None Seen (None Seen); Hyaline Casts Urine 0-2 /LPF (0-2); RBC Urine 0-2 /HPF (0-2); Squamous Epithelial Cell Urine 0-2 /HPF (0-2); WBC Urine 0-5 /HPF (0-5)
[2023-02-26] MEDS: iohexoL 350 MG/ML 100 ML INFUS..BTL 85 ML IV (23:40)
--- NOTE | 2023-02-27 01:10 | PC.NURSE ---
Notified provider Rodrigo Kirby pt would like update regarding plan of care, Provider will be in shortly.
[2023-02-27] MEDS: Ketorolac Tromethamine 30 MG/ML VIAL 15 MG IVPUSH (01:16)
--- NOTE | 2023-02-27 01:20 | PC.NURSE ---
Medicated per Mar.
--- NOTE | 2023-02-27 01:34 | PC.NURSE ---
Reviewed discharge instruction with pt. pt verbalized understanding, pt wheeled out to car and discharge with family member. no respiratory distress, medicated for pain management upon discharge.
== END 2023-02-27 01:36 | disposition home or self-care (01) ==
PROVIDERS: Registered Nurse Emergency; Emergency Provider Student in an Organized Health Care Education/Training Program; PCP Internal Medicine
DX: R10.30 Lower abdominal pain, unspecified (principal); M79.10 Myalgia, unspecified site; R11.2 Nausea with vomiting, unspecified; Z79.899 Other long term (current) drug therapy
CPT/HCPCS: 36415; 51798; 74174; 80053; 81001; 81003; 85025; 96374; 99284; 99285; J1885; Q9967

== ENCOUNTER 2023-04-09 13:30 | Outpatient (AMB) | payer MEDICARE, SELFPAY ==
--- NOTE | 2023-04-09 13:41 | MHC.OFFVIS ---
Intake Vital Signs 04/09/23 13:45 Height 5 ft 9 in Weight 154 lb 5.177 oz BMI 22.8 BP 175/79 H Blood Pressure Location Lt brachial Position Sitting Pulse 86 Intake Visit Reasons: Abdominal Pain Intake Note: Richardson presents in the office as a new patient for abdominal pains. CC: States that he he was having pains in his stomach and thats why he was sent here. He gets a sharp pain every once in a while that it in the middle where his belly button is. Hat Lacer Required: No Allergies No Known Allergies Allergy (Verified 04/09/23 14:23) HPI Abdominal Pain HPI Details 78-year-old male with past medical history of GERD, AAA, anxiety, hyperlipidemia, PVD, COPD, oxygen-dependent is here for initial consultation. Patient was seen in the ER for abdominal pain. Patient reports that he has had this pain in the middle of his abdomen that is not related to meals. Patient reports that his pain now subsided. Is not happening as often as it was before. Patient reports that he started drinking more water and appears that since he started drinking more water he feels the bathroom twice a day now and has not had this pain. CT scan reviewed and showed no abdominal wall hernias. Patient is accompanied today by his . Patient is on O2. Patient denies melena, hematochezia, unintentional weight loss or ribbon like stools. Patient denies any dyspepsia, dysphagia or odynophagia. Patient reports that he also gets abdominal bloating. Occasionally passes gas depending on what he eats. Patient used to drink milk by a gallon and now drinks 1-2 cups a day. Patient denies any nausea or vomiting [facility] Medical History Respiratory failure with hypoxia COPD (chronic obstructive pulmonary disease) Mucus plugging of bronchi PAD (peripheral artery disease) AAA (abdominal aortic aneurysm) without rupture Emphysema lung Social History Household Members: Spouse Housing: House Do you presently have visiting nurse or other home services: No Alcohol intake: former Patient Tobacco Use Status: Former Tobacco user Quit Date: 7 years Tobacco use type: Cigarette service: No Review of Systems Const Denies weight gain and Denies weight loss ENT Reports no additional complaints, Denies dysphagia and Denies odynophagia Card Reports no additional complaints Resp Reports no additional complaints GI Reports abdominal pain (Above umbilical area), Denies belching, Denies melena, Reports bloating, Denies change in bowel habits, Denies dysphagia, Denies excessive flatus, Denies dyspepsia, Denies heartburn, Denies diarrhea, Denies loose stools, Denies nausea, Denies odynophagia and Denies vomiting Reports no additional complaints Musc Reports no additional complaints Neuro Reports no additional complaints Psych Reports no additional complaints Endo Reports no additional complaints Physical Exam Vital Signs: Last Vital Signs Pulse 86 04/09/23 13:45 BP 175/79 H 04/09/23 13:45 BMI result Body Mass Index 22.8 Const General: healthy appearing, no acute distress and well developed Nutritional Appearance: well nourished Orientation/consciousness: patient oriented x3 Resp Other: Portable oxygen, on O2 via nasal cannula Effort & Inspection: able to speak in complete sentences, no tracheal deviation and symmetric chest movement Auscultation: clear to auscultation bilaterally Cardio Rate: regular rate GI Inspection: No distended and Yes other (Diastasis rectus, small hernia) Palpation (GI): Soft to palpation, not firm, nontender and No hepatosplenomegaly present Auscultation: normal bowel sounds General: Yes no CVA tenderness Back/Spine/Pelvis Back: no CVA tenderness Skin General skin exam: elasticity normal, turgor normal and dry skin Neuro General: patient oriented x3 Psych Appearance: grossly normal Mental Status: mental status grossly normal Assessment & Plan Assessment & Plan (1) Urinary retention: Code(s): R33.9 - Retention of urine, unspecified (2) Hernia of abdominal wall: Code(s): K43.9 - Ventral hernia without obstruction or gangrene (3) Rectus diastasis: Code(s): M62.08 - Separation of muscle (nontraumatic), other site (4) IBS (irritable bowel syndrome): Code(s): K58.9 - Irritable bowel syndrome without diarrhea Qualifiers: Irritable bowel syndrome type: without diarrhea Qualified Code(s): K58.9 - Irritable bowel syndrome without diarrhea Plan Patient will start taking MiraLax on a daily basis. Patient was encouraged to increase fluid intake and activity to promote better bowel motility. Patient will use simethicone on as needed basis 2 to 3 times a day. Diastasis recti seen on exam. Small abdominal wall hernia 10 cm above umbilicus. Tender to touch. Patient is being referred to General surgery. Consult with Dr. Stern general surgeon who will see patient today. Colonoscopy in 2010. Patient is on continuous oxygen, will consider sending her for colonoscopy after his surgery if he agrees. Patient most likely will need to go under anesthesia for that due to his underlying emphysema, COPD and SOB symptoms. At this time patient has no other bowel issues. No family history of colorectal cancer. No melena, hematochezia, unintentional weight loss or ribbon like stools. Both patient and his are agreeable to this plan and verbalizes understanding of instructions. They were given the opportunity to ask questions and all questions answered. Thank you for allowing me to participate in his care Orders: Referrals Urology Referral R33.9 - Retention of urine, unspecified General Surgery Referral K42.9 - Umbilical hernia without obstruction or gangrene Medications: New polyethylene glycol 3350 (Miralax) 17 grams PO DAILY 510 grams 2RF K59.00 - Constipation, unspecified simethicone (Gas Relief (simethicone)) 125 mg PO TID-QID PRN 120 caps 2RF abdominal distention R14.0 - Abdominal distension (gaseous) Coding Level of Care Code New Pt Level 4 (83358) Diagnoses Urinary retention R33.9 Hernia of abdominal wall K43.9 Rectus diastasis M62.08 Irritable bowel syndrome without diarrhea K58.9 Irritable bowel syndrome type: without diarrhea Time Spent (min) 45 Comment 30 minutes spent with patient and additional 15 minutes spent reviewing his records
[2023-04-09 13:45] VITALS: BP 175/79; PULSE 86; BMI 22.8
== END 2023-04-09 14:17 | disposition home or self-care (01) ==
PROVIDERS: PCP Internal Medicine; Visit Provider Nurse Practitioner Family
DX: R33.9 Retention of urine, unspecified (principal); K43.9 Ventral hernia without obstruction or gangrene; M62.08 Separation of muscle (nontraumatic), other site; K58.9 Irritable bowel syndrome, unspecified
CPT/HCPCS: 99204

== ENCOUNTER → 2023-04-09 13:30 | Outpatient (BNVA) | payer MEDICARE, SELFPAY | PROVIDERS: PCP Internal Medicine; Visit Provider Nurse Practitioner Family | DX: K43.9 Ventral hernia without obstruction or gangrene (principal); R33.9 Retention of urine, unspecified; M62.08 Separation of muscle (nontraumatic), other site; K58.9 Irritable bowel syndrome, unspecified | CPT/HCPCS: 99202 ==

== ENCOUNTER 2023-04-09 14:20 | Outpatient (AMB) | payer MEDICARE, SELFPAY ==
[2023-04-09 14:22] VITALS: BP 170/78; PULSE 82; BMI 22.8
--- NOTE | 2023-04-09 14:22 | MHC.OFFVIS ---
Intake Vital Signs 04/09/23 14:22 Height 5 ft 9 in Weight 154 lb 5.177 oz BMI 22.8 BP 170/78 H Blood Pressure Location Lt brachial Position Sitting Pulse 82 Intake Visit Reasons: umbilical hernia Intake Note: Patient is seen in office for evaluation and treatment of an umbilical hernia repair. Pt c/o: admits to pains in his abdominal area, sharp pain every once in a while in the umbilical area, onset 2 months Tooling Specialist Required: No Accompanied by: Self / Same As Patient Allergies No Known Allergies Allergy (Verified 04/09/23 14:23) HPI HPI Comments History of Present Illness Details Patient is being evaluated in the GI clinic and was found to have a symptomatic supraumbilical ventral hernia. He was transferred to the surgical clinic were he underwent evaluation by me. He presents with his . He has had several month history of symptomatic supraumbilical ventral hernia. His increasing in size, becoming more symptomatic. He wishes to have it repaired. Chart was reviewed patient evaluated. Patient has very advanced COPD among other comorbidities. He discontinued smoking approximately 7 years ago. He is followed by Cardiology and Pulmonary here at [place]. No prior abdominal surgeries. Patient has a proximally 4 x 4 cm AAA which is being followed/undergoing surveillance [facility] Medical History Respiratory failure with hypoxia COPD (chronic obstructive pulmonary disease) Mucus plugging of bronchi PAD (peripheral artery disease) AAA (abdominal aortic aneurysm) without rupture Emphysema lung Social History Household Members: Spouse Housing: House Do you presently have visiting nurse or other home services: No Alcohol intake: former Patient Tobacco Use Status: Former Tobacco user Quit Date: 7 years Tobacco use type: Cigarette service: No Physical Exam Vital Signs: Last Vital Signs Pulse 82 04/09/23 14:22 BP 170/78 H 04/09/23 14:22 BMI result Body Mass Index 22.8 Const Other: Patient with home O2 and nasal cannula. Marked COPD. Chest Other: Chest breath sounds bilaterally consistent with significant COPD. HS 1 in 2 GI Other: Thin scaphoid abdomen. Reducible proximally 2 cm supraumbilical ventral hernia. Some rectus diastasis Assessment & Plan Assessment & Plan (1) Hernia, ventral: Code(s): K43.9 - Ventral hernia without obstruction or gangrene Plan Risks, benefits, alternatives of ventral hernia repair with mesh reviewed with the patient his and included but not limited to bleeding, infection, recurrence, numbness, pain, scarring the patient wished to proceed. All questions were answered. We will have the patient be seen by anesthesia in preop evaluation and hopefully proceed with the procedure under MAC. Coding Level of Care Code New Pt Level 5 (59419) Diagnoses Hernia, ventral K43.9
== END 2023-04-09 14:23 | disposition home or self-care (01) ==
LOC: HO.HGS 14:20
PROVIDERS: PCP Internal Medicine; Referring Provider Nurse Practitioner Family; Visit Provider Surgery
DX: K43.9 Ventral hernia without obstruction or gangrene (principal)
CPT/HCPCS: 99204

== ENCOUNTER 2023-04-15 10:13 | Outpatient (AMB) | payer MEDICARE, SELFPAY ==
[2023-04-15 10:32] VITALS: BP 102/68; PULSE 101; O2SAT 93; BMI 22.7
--- NOTE | 2023-04-15 10:32 | MHC.OFFVIS ---
Intake Vital Signs 04/15/23 10:32 Height 5 ft 9 in Weight 154 lb BMI 22.7 BP 102/68 Blood Pressure Location Lt brachial Position Sitting Pulse 101 H Pulse Source Pulse Oximeter Pulse Oximetry (%) 93 Oxygen Delivery Method Nasal Cannula Oxygen Flow Rate 2 Intake Visit Reasons: Emphysema Intake Note: pt is here for follow up and states he is about the same as previous visit, using oxygen 24 hours a day. Residential Gas Heat Technician Required: No Allergies No Known Allergies Allergy (Verified 04/15/23 10:53) Medication List - Last Reconciled 04/15/23 by Valerie Geronimo MD albuterol sulfate 90 mcg/actuation (Ventolin HFA) 2 puffs inhalation Q6H PRN aspirin 81 mg PO DAILY famotidine 20 mg PO BID gevmqdpbugx-ttnrlpwrk-ziylzzqg 100-62.5-25 mcg (Trelegy Ellipta) 1 ea inhalation DAILY ipratropium-albuterol 0.5 mg-3 mg(2.5 mg base)/3 mL 3 mL inhalation QID ketorolac 10 mg PO BID PRN nebulizers As directed polyethylene glycol 3350 (Miralax) 17 grams PO DAILY pravastatin 40 mg PO DAILY simethicone (Gas Relief (simethicone)) 125 mg PO TID-QID PRN Do you need a note to return to daycare/school/sports/work: No HPI Emphysema HPI Details Richardson is 77 years old gentleman, here for follow-up after 2 months for his pulmonary problems. He does have advanced chronic obstructive pulmonary disease, due to advanced pulmonary emphysema,, bibasilar fibrotic changes and bronchiectasis. He uses Trelegy Ellipta once a day, DuoNeb updrafts 3 to 4 times a day, and oxygen 24 hours a day. Says in the last 2 months has had no acute infection or exacerbation. He is mostly in the wheelchair and walks very little at home. He claims that his respiratory status has remained as stable as before. [facility] Medical History Respiratory failure with hypoxia COPD (chronic obstructive pulmonary disease) Mucus plugging of bronchi PAD (peripheral artery disease) AAA (abdominal aortic aneurysm) without rupture Emphysema lung Social History Household Members: Spouse Housing: House Do you presently have visiting nurse or other home services: No Alcohol intake: former Patient Tobacco Use Status: Former Tobacco user Quit Date: 7 years Tobacco use type: Cigarette service: No Review of Systems Const All systems reviewed & are unremarkable except as noted in HPI and below Eyes Reports no additional complaints ENT Reports no additional complaints Card Denies chest pain, Denies irregular heart rhythm, Denies leg edema and Reports dyspnea on exertion Resp Reports as per HPI and Reports dyspnea on exertion GI Reports constipation and Reports dyspepsia Reports no additional complaints Musc Reports other (GENERAL WEAKNESS) Skin/Breast Reports system reviewed and no additional complaints, except as documented Neuro Reports no additional complaints Psych Reports no additional complaints Physical Exam Vital Signs: Last Vital Signs Pulse 101 H 04/15/23 10:32 BP 102/68 04/15/23 10:32 Pulse Ox 93 04/15/23 10:32 Oxygen Delivery Method Nasal Cannula 04/15/23 10:32 Oxygen Flow Rate 2 04/15/23 10:32 BMI result Body Mass Index 22.7 Last Vital Signs Temp 97.8 F 01/30/23 08:38 Pulse 109 H 01/30/23 08:38 Resp 24 H 01/30/23 08:38 BP 131/68 01/30/23 08:38 Pulse Ox 94 01/30/23 08:38 O2 Del Method Nasal Cannula 01/30/23 08:38 O2 Flow Rate 3 01/30/23 08:38 BMI result Body Mass Index 23.9 Const General: comfortable (Except for shortness of breath during conversation), no acute distress, alert and awake Orientation/consciousness: patient oriented x3 HEENT Head: Yes normal to inspection General nose exam: No nasal polyps present and No nasal discharge present Face and sinus: Yes sinuses nontender Mouth: oropharynx normal Teeth and gingiva: edentulous Throat: Yes posterior oropharynx normal Eyes General: appearance normal, both eyes and all related structures Neck Neck: Yes normal visual inspection, Yes no lymphadenopathy, Yes trachea midline and Yes no JVD Thyroid: Thyroid normal Chest Chest palpation & inspection: normal inspection of the chest, normal palpation of entire chest wall and no tenderness Resp Other: PERCUSSION NOTE IS RESONANT, BREATH SOUNDS ARE VERY DISTANT, ESPECIALLY OVER THE RIGHT LOWER LOBE AND LEFT BASE, WITH PROLONGED EXPIRATORY PHASE. NO WHEEZES. A FEW INSPIRATORY CREPS OVER THE RIGHT BASE. Cardio Palpation: normal PMI Rate: regular rate Rhythm: regular rhythm Heart sounds: no gallops and no murmurs GI Palpation (GI): Soft to palpation, nontender, No hepatosplenomegaly present and no masses Auscultation: normal bowel sounds Back/Spine/Pelvis Thoracic/Lumbar Spine: thoracic and lumbar spine normal to inspection and thoraco-lumbar ROM limited Skin General skin exam: no rashes or lesions noted Neuro General: patient oriented x3 and no focal motor deficits Cranial nerves: Yes CN's II-XII intact bilaterally Extrem General: Yes normal to inspection, Yes no clubbing, cyanosis or edema and Yes no calf tenderness Psych Other: POOR GENERAL HYGIENE Appearance: disheveled Mental Status: mental status grossly normal Speech and movement: Normal speech and movement present Assessment & Plan Assessment & Plan (1) COPD (chronic obstructive pulmonary disease): Comment: PATIENT HAS ADVANCED CHRONIC OBSTRUCTIVE PULMONARY DISEASE. HE IS PRONE TO HAVE RECURRENT RESPIRATORY INFECTIONS. AT PRESENT HE IS STABLE EXPECTED. Code(s): J44.9 - Chronic obstructive pulmonary disease, unspecified Plan: [place] : CONTINUE TRELEGY ELLIPTA 1 INHALATION DAILY. IPRATROPIUM- ALBUTEROL INHALATION SOLUTION IN THE NEBULIZER Q 6 HOURS WHILE AWAKE ( AT LEAST 3 TIMES A DAY ) ALSO ADVISED TO DO DEEP BREATHING EXERCISES WITH THE INCENTIVE SPIROMETRY DEVICE, AT LEAST 3 TIMES A DAY . (2) Respiratory failure with hypoxia: Comment: PATIENT HAS HYPOXEMIA, BEING TREATED WITH OXYGEN SUPPLEMENTATION Code(s): J96.91 - Respiratory failure, unspecified with hypoxia Plan: USE O2 2 L/MINUTES WHEN RESTING AT HOME, AND AT NIGHT. MAY INCREASE TO 3 L/MINUTE WHEN GOING OUTDOORS. (3) Mucus plugging of bronchi: Comment: PER CT SCAN ON 01/29/23, HE WAS FOUND TO HAVE MUCUS PLUGGING OF THE BRONCHI IN THE LOWER LOBES ESPECIALLY IN RIGHT LOWER LOBE. HE IS A HIGH RISK FOR BRONCHOSCOPY. Code(s): T17.500A - Unspecified foreign body in bronchus causing asphyxiation, initial encounter Plan: TREATMENT WITH THE FOLLOWING MEASURES IS TO CONTINUE : USE DUONEB UPDRAFT AT LEAST 3 TIMES A DAY. PLENTY OF FLUIDS. INCENTIVE SPIROMETRY Q.2 HOURS WHILE AWAKE. VIBRATORY RESPIRATORY EXERCISES ( WITH ACAPELA VALVE ) Q 2 HOURS WHILE AWAKE. Coding Level of Care Code Est Pt Level 4 (33645) Diagnoses COPD (chronic obstructive pulmonary disease) J44.9 Respiratory failure with hypoxia J96.91 Mucus plugging of bronchi T17.500A
== END 2023-04-15 11:00 | disposition home or self-care (01) ==
PROVIDERS: PCP Internal Medicine; Visit Provider Internal Medicine
DX: J44.9 Chronic obstructive pulmonary disease, unspecified (principal); J96.91 Respiratory failure, unspecified with hypoxia; T17.500A Unspecified foreign body in bronchus causing asphyxiation, initial encounter
CPT/HCPCS: 99214

== ENCOUNTER → 2023-04-15 10:13 | Outpatient (BNVA) | payer MEDICARE, OTHER, SELFPAY | PROVIDERS: PCP Internal Medicine; Visit Provider Internal Medicine | DX: J44.9 Chronic obstructive pulmonary disease, unspecified (principal); J96.91 Respiratory failure, unspecified with hypoxia; T17.5 Foreign body in bronchus; Z99.81 Dependence on supplemental oxygen | CPT/HCPCS: 99212 ==

== ENCOUNTER 2023-04-19 08:30 | Day surgery (SDC) | payer MEDICARE, OTHER, SELFPAY ==
[2023-04-17 13:29] VITALS: BP 134/73; PULSE 81; RESP 20; O2SAT 92; BMI 23.2
--- NOTE | 2023-04-17 13:42 | P.CONAN_ITS ---
Documented by User: Cynthia Aguero NP 04/17/23 14:05 HPI - Anesthesia Eval Consult details Narrative: 77yo M for OPEN Hernia Ventral Reducible with poss mesh Pt eval'd with Dr Gama. High Pulmo risk. OK to proceed with plan for minimal sedation. Pt and family verbalized high risk. Pulmo cleared for MAC. Severe COPD. O2 dependant. Congested cough for months. Instructed compliance with inhalers and Q4h duonebs leading up to DOS. Followed by [facility]. PAD s/p LE stent, AAA (4.5cm). Plavix last dose 04/17/23. PMF Active Problems Active Problems: All Active Problems (Updated 04/17/23 @ 13:25 by Baylee Arizmendi RN) Hernia, ventral (Acute) Reflux esophagitis (Acute) Pneumonia (Acute) Sepsis (Acute) Mucus plugging of bronchi (Acute) Respiratory failure with hypoxia (Acute) COPD (chronic obstructive pulmonary disease) (Acute) PAD (peripheral artery disease) (Acute) AAA (abdominal aortic aneurysm) without rupture (Acute) Past Medical History Medical History (Updated 04/17/23 @ 13:25 by Baylee Arizmendi RN) PVD (peripheral vascular disease) with claudication Elevated cholesterol Personal history of COVID-19 BRANDAN (generalized anxiety disorder) Oxygen dependent Urinary retention Abdominal pain Respiratory failure with hypoxia COPD (chronic obstructive pulmonary disease) Mucus plugging of bronchi PAD (peripheral artery disease) AAA (abdominal aortic aneurysm) without rupture Emphysema lung Family History Family history of problems with anesthesia: No Surgical History Surgical History (Updated 04/17/23 @ 13:27 by Baylee Arizmendi RN) Hx of hand surgery (~1984) History of Problems with Anesthesia: No Social History Social History Household Members: Spouse Housing: House Are you a primary family day care provider to a significant other at home: No Do you presently have visiting nurse or other home services: No Alcohol intake: former Patient Tobacco Use Status: Former Tobacco user Quit Date: 2015 Tobacco use type: Cigarette Second Hand Smoke Exposure: Yes (son lives with patient and smokes in the house and car) service: No Meds Allergies Allergy/AdvReac Type Severity Reaction Status Date / Time No Known Allergies Allergy Verified 04/17/23 13:23 Home Medications Medication Instructions Recorded Confirmed Last Taken Type albuterol sulfate 90 mcg/actuation 2 puff inhalation Q6H PRN 11/08/22 04/16/23 04/19/23 History aerosol inhaler (Ventolin HFA) Shortness Of Breath Or Wheezing aspirin 81 mg tablet,delayed 81 mg PO DAILY 11/08/22 04/16/23 01/29/23 History release ipratropium 0.5 mg-albuterol 3 mg 3 ml inhalation QID 01/29/23 04/17/23 04/19/23 History (2.5 mg base)/3 mL nebulization wheezing/MUCOUS PLUGGING soln famotidine 20 mg tablet 20 mg PO DAILY 04/09/23 04/17/23 04/19/23 History clopidogrel 75 mg tablet 75 mg PO DAILY 04/16/23 04/16/23 04/17/23 History fluticasone fur. 100 mcg-umeclid 1 ea inhalation DAILY 04/16/23 04/16/23 04/19/23 History 62.5 mcg-vilant 25 mcg inhalat.powder (Trelegy Ellipta) azithromycin 250 mg tablet 500 mg PO 3XW 04/17/23 04/17/23 Unknown History polyethylene glycol 3350 17 17 g PO DAILY 04/17/23 04/17/23 Unknown History gram/dose oral powder (Gavilax) Exam Height,Weight and Vital Signs: Height 5 ft 9 in Weight 71.214 kg Last Vital Signs Pulse 81 04/17/23 13:29 Resp 20 04/17/23 13:29 BP 134/73 04/17/23 13:29 Pulse Ox 92 04/17/23 13:29 O2 Del Method Nasal Cannula 04/17/23 13:29 Pertinent Lab Results Pertinent Lab Results: Laboratory Tests 02/26/23 02/26/23 15:28 15:29 WBC 5.6 Hgb 12.5 L Hct 39.9 L Plt Count 457 H D Sodium 140 Potassium 4.1 Chloride 103 Carbon Dioxide 27 BUN 23 H Creatinine 0.89 Narrative Narrative: EKG 01/2024 Vent. Rate : 120 BPM Atrial Rate : 120 BPM P-R Int : 190 ms QRS Dur : 068 ms QT Int : 282 ms P-R-T Axes : 075 -07 031 degrees QTc Int : 398 ms Sinus tachycardia Nonspecific ST and T wave abnormality Abnormal ECG When compared with ECG of 22-NOV-2022 19:25, No significant change was found Heart rate has increased CT chest wo IV con 01/2023 IMPRESSION: 1. No significant change since most recent prior CT of the chest done on 11/08/2022. 2. Reidentified extensive emphysematous disease predominantly involving both upper lobes. Superimposed indeterminate right lower lobar bronchial/peribronchiolar soft tissue opacity and nonspecific indeterminate soft tissue opacity at left lower lobe of the lung appear unchanged. Differential remains infectious, inflammatory process/mucus plugging as well as neoplasm. 3. Multiple calcified gallstones and numerous stable presumed hepatic cysts. CT angio abdomen pelvis 02/2023 IMPRESSION: 1. Infrarenal abdominal aortic aneurysm measuring 4.5 x 3.9 cm, not significantly changed when compared to the prior study. Recommend followup by abdomen and pelvis CTA in 6 months, and vascular surgery referral/consultation if not already obtained. 2. Other incidental findings as described above including severe emphysema, hepatic and renal cysts, cholelithiasis, mild BPH and degenerative changes in the spine. Airway Mallampati Class: I TM Dist: <=3cm Loose/Missing/Broken Teeth: Yes (Edentualous) Heart: RRR Lungs: Coarse throughout Assessment and Plan Assessment Anesthesia Assessment: Anesthesia Plan Discussed and PAT Visit Final Anesthetic Review Family History of Problems with Anesthesia: No History of Problems with Anesthesia: No Documented by User: Tresa Grullon MD 04/19/23 11:57 [facility] Active Problems Active Problems: All Active Problems (Updated 04/17/23 @ 13:25 by Baylee Arizmendi, MARCIE) Hernia, ventral (Acute) Reflux esophagitis (Acute)- patient denies H/o Pneumonia (Acute) H/o Sepsis (Acute) Mucus plugging of bronchi (Acute) Respiratory failure with hypoxia (Acute) COPD (chronic obstructive pulmonary disease) (Acute) PAD (peripheral artery disease) (Acute) AAA (abdominal aortic aneurysm) without rupture (Acute) 4.5 cm -stable Hernia to right of umbilicus- tender Past Medical History Medical History (Updated 04/17/23 @ 13:25 by Baylee Arizmendi, MARCIE) PVD (peripheral vascular disease) with claudication Elevated cholesterol Personal history of COVID-19 BRANDAN (generalized anxiety disorder) Oxygen dependent Urinary retention Abdominal pain Respiratory failure with hypoxia COPD (chronic obstructive pulmonary disease) Mucus plugging of bronchi PAD (peripheral artery disease) AAA (abdominal aortic aneurysm) without rupture Emphysema lung Family History Family history of problems with anesthesia: No Surgical History Surgical History (Updated 04/17/23 @ 13:27 by Baylee Arizmendi, MARCIE) Hx of hand surgery (~1984) History of Problems with Anesthesia: No Social History Social History Household Members: Spouse Housing: House Are you a primary family day care provider to a significant other at home: No Do you presently have visiting nurse or other home services: No Alcohol intake: former Patient Tobacco Use Status: Former Tobacco user Quit Date: 2015 Tobacco use type: Cigarette Second Hand Smoke Exposure: Yes (son lives with patient and smokes in the house and car) service: No Meds Allergies Allergy/AdvReac Type Severity Reaction Status Date / Time No Known Allergies Allergy Verified 04/17/23 13:23 Home Medications Medication Instructions Recorded Confirmed Last Taken Type albuterol sulfate 90 mcg/actuation 2 puff inhalation Q6H PRN 11/08/22 04/16/23 04/19/23 History aerosol inhaler (Ventolin HFA) Shortness Of Breath Or Wheezing aspirin 81 mg tablet,delayed 81 mg PO DAILY 11/08/22 04/16/23 01/29/23 History release ipratropium 0.5 mg-albuterol 3 mg 3 ml inhalation QID 01/29/23 04/17/23 04/19/23 History (2.5 mg base)/3 mL nebulization wheezing/MUCOUS PLUGGING soln famotidine 20 mg tablet 20 mg PO DAILY 04/09/23 04/17/23 04/19/23 History clopidogrel 75 mg tablet 75 mg PO DAILY 04/16/23 04/16/23 04/17/23 History fluticasone fur. 100 mcg-umeclid 1 ea inhalation DAILY 04/16/23 04/16/23 04/19/23 History 62.5 mcg-vilant 25 mcg inhalat.powder (Trelegy Ellipta) azithromycin 250 mg tablet 500 mg PO 3XW 04/17/23 04/17/23 Unknown History polyethylene glycol 3350 17 17 g PO DAILY 04/17/23 04/17/23 Unknown History gram/dose oral powder (Gavilax) Exam Height,Weight and Vital Signs: Height 5 ft 9 in Weight 71.214 kg Last Vital Signs Pulse 81 04/17/23 13:29 Resp 20 04/17/23 13:29 BP 134/73 04/17/23 13:29 Pulse Ox 92 04/17/23 13:29 O2 Del Method Nasal Cannula 04/17/23 13:29 Vital Signs Temp Pulse Resp BP Pulse Ox O2 Del Method O2 Flow Rate 04/19/23 08:49 98 F 70 24 H 149/80 H 94 Nasal Cannula 2 Airway Mallampati Class: II TM Dist: >3cm Neck ROM: Full Loose/Missing/Broken Teeth: Yes (Edentulous) Lungs: Decreased breath sounds. Transmitted sounds. No wheezing Assessment and Plan Assessment Anesthesia Assessment: Anesthesia Plan Discussed and Chart Reviewed Final Anesthetic Review Family History of Problems with Anesthesia: No History of Problems with Anesthesia: No NPO: Yes ASA Class: IV Final Preanesthetic Review: No Changes in Pt Med Stat, Meds/Allgs Chart Reviewed, Consent Obtained/Reviewed and Anes Risks/Benef Reviewed Patient Risk: High Procedure Risk: Intermediate Assessment/Block/Sedation in SS: Assess/Block/Sedation-SS Anesthetic Plan Anesthetic Plan: MAC: (High pulmonary risk. Plan local with sedation. ) Disposition: Standard PACU and Extended PACU
[2023-04-19] VITALS (7 sets, daily range): BP systolic 130–149; BP diastolic 74–82; PULSE 70–99; RESP 18–24; TEMP 36.4–36.6; O2SAT 94–98
--- NOTE | 2023-04-19 05:27 | MHC.SHP ---
Pre-Procedural Eval Section A Date of Service: 04/19/23 The patient is an INPATIENT: No Changes since office visit: No Cold of Flu in the past 2 weeks, No New Medical Problems, No Changes in Medication and No Patient answered all questions The History & Physical has been completed within 30 days and I have reviewed it.: Yes Section B Chief Complaint: Umbilical hernia without obstruction or gangrene Allergies: Allergies Allergy/AdvReac Type Severity Reaction Status Date / Time No Known Allergies Allergy Verified 04/17/23 13:23 Plan I have reviewed the history and physical and performed a pertinent physical examination on my patient. No changes have occurred unless specified. Time Spent With Patient Time: Total time managing care of this patient today ____ minutes.
--- NOTE | 2023-04-19 09:21 | PC.NURSE ---
ls clear diminshed congested cough noted which is normal per patient
[2023-04-19] MEDS: Lactated Ringers 1,000 ML 100 ML IVCONT (09:22)
--- NOTE | 2023-04-19 10:49 | PC.NURSE ---
pt using the incentive spirometery with out difficuties
--- NOTE | 2023-04-19 11:53 | P.OP_ITS ---
Operative Note Operative Note Date of Service: 04/19/23 Narrative: Preoperative diagnosis: [] Incarcerated supraumbilical ventral hernia Postop diagnosis: [] Same Procedure [] repair supraumbilical incarcerated ventral hernia with Bard mesh Surgeon: [] Jarred Internal Controls Specialist: [] Jerald Type of Anesthesia: [] MAC Indication for surgery: [] Proximally 2 cm supraumbilical incarcerated ventral hernia with omental contents. Findings: [] Patient brought to the operating room, placed on operative table supine position, after adequate level of MAC anesthesia was induced, the patient's abdomen was prepped and draped in usual sterile fashion. Using a transverse incision over the hernia in question approximately 3 fingerbreadths above the umbilicus, this carried down through skin, subcutaneous tissue, were the incarcerated hernia was identified. Defect measured approximately 2 cm. Circumferential dissection down to the fascia was accomplished and sac opened and incarcerated omentum amputated. Fascia margins were circumferentially cleared. A Bard mesh was placed in this defect, and the superficial layer of the mesh was circumferentially sutured to the surrounding fascia using interrupted 0 Ethibond suture. At completion the procedure, mesh was in good position with no gaps or tension. Wound was irrigated, secured hemostasis. It was closed in the following manner; subcutaneous tissue was reapproximated using interrupted 3-0 Vicryl sutures. Skin was closed using interrupted inverted dermal 3-0 Vicryl sutures followed by Steri-Strips and sterile dressings. Wound was infiltrated beginning at the end of procedure was 1% lidocaine/0.5% Marcaine. Sponge, needle, and instrument counts reported correct. Patient tolerated the procedure well and emerged from anesthesia stable condition. EBL minimal
== END 2023-04-19 13:32 | disposition home or self-care (01) ==
PROVIDERS: PCP Internal Medicine; Visit Provider Surgery
PROC: (CPT 49592; principal; 2023-04-19 10:40)
DX: K43.6 Other and unspecified ventral hernia with obstruction, without gangrene (principal); J44.9 Chronic obstructive pulmonary disease, unspecified; J96.91 Respiratory failure, unspecified with hypoxia; J43.9 Emphysema, unspecified; Z99.81 Dependence on supplemental oxygen; Z87.891 Personal history of nicotine dependence; I71.40 Abdominal aortic aneurysm, without rupture, unspecified; I73.9 Peripheral vascular disease, unspecified; Z79.02 Long term (current) use of antithrombotics/antiplatelets
CPT/HCPCS: 49592; 88302; C1781; J0131; J0665; J0690; J2704; J3010

== ENCOUNTER → 2023-04-19 08:30 | Outpatient (BNV) | payer MEDICARE, SELFPAY | PROVIDERS: PCP Internal Medicine; Visit Provider Surgery | DX: K42.9 Umbilical hernia without obstruction or gangrene (principal) | CPT/HCPCS: 49592 ==

== ENCOUNTER 2023-05-06 13:06 | Outpatient (AMB) | payer MEDICARE, SELFPAY ==
[2023-05-06 13:11] VITALS: BP 130/74; PULSE 77
--- NOTE | 2023-05-06 13:11 | A.OFFVIS_ITS ---
Intake Vital Signs 05/06/23 13:11 BP 130/74 Blood Pressure Location Lt brachial Position Sitting Pulse 77 Intake Visit Reasons: S/p Repair ventral hernia w/ mesh Intake Note: Patient here s/p ventral hernia repair with mesh on 04-19-23. Reports incisions healing well. Patient c/o: lump on umbilicus area. 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 He has minimal incisional discomfort. He has tolerating a diet. Having regular bowel habits. No other wound issues or complaints [facility] Medical History PVD (peripheral vascular disease) with claudication Elevated cholesterol Personal history of COVID-19 BRANDAN (generalized anxiety disorder) Oxygen dependent Urinary retention Abdominal pain Respiratory failure with hypoxia COPD (chronic obstructive pulmonary disease) Mucus plugging of bronchi PAD (peripheral artery disease) AAA (abdominal aortic aneurysm) without rupture Emphysema lung Surgical History Hernia, ventral (04/19/23) Hx of hand surgery (~1984) Social History Household Members: Spouse Housing: House Are you a primary care transport nurse to a significant other at home: No Do you presently have visiting nurse or other home services: No Alcohol intake: former Patient Tobacco Use Status: Former Tobacco user Quit Date: 2015 Tobacco use type: Cigarette Second Hand Smoke Exposure: Yes (son lives with patient and smokes in the house and car) service: No Physical Exam Vital Signs: Last Vital Signs Pulse 77 05/06/23 13:11 BP 130/74 05/06/23 13:11 GI Other: Abdomen is soft. Wound clean dry and intact healing uneventfully. Assessment & Plan Assessment & Plan (1) Hernia, ventral: Onset Date: 04/19/23 Comment: Dr. Shaun Stern Code(s): K43.9 - Ventral hernia without obstruction or gangrene Plan Patient and have been given local wound instructions, and will follow-up p.r.n.. All questions answered. Coding Level of Care Code Global (69849) Diagnoses Hernia, ventral K43.9
== END 2023-05-06 13:14 | disposition home or self-care (01) ==
PROVIDERS: PCP Internal Medicine; Visit Provider Surgery
DX: K43.9 Ventral hernia without obstruction or gangrene (principal)
CPT/HCPCS: 99212

== ENCOUNTER → 2023-05-06 13:06 | Outpatient (BNVA) | payer MEDICARE, OTHER, SELFPAY | PROVIDERS: PCP Internal Medicine; Visit Provider Surgery | DX: K43.9 Ventral hernia without obstruction or gangrene (principal) | CPT/HCPCS: 99212 ==

== ENCOUNTER 2023-06-14 10:21 | Outpatient (AMB) | payer MEDICARE, SELFPAY ==
--- NOTE | 2023-06-14 10:58 | A.OFFVIS_ITS ---
Intake Visit Reasons: incomplete bladder emptying Intake Note: NEW Patient presents today to established treatment for Incomplete Bladder Emptying: Meds- None Allergies to Antibiotic- No Known Allergies Blood Thinner- Aspirin PVR- 74 mL Web Press Operator Apprentice Required: No Accompanied by: Significant Other Allergies No Known Allergies Allergy (Verified 07/15/23 14:09) HPI Comments Details: Richardson is a 78 year old male with urinary symptoms, Intermittent urination, Incomplete bladder emptying. PMH COPD, oxygen dependent. Nicotine use, denies gross hematuria. UA - microscopic hematuria. Bladder scan PVR 74 mL 06/14/23--Plan--Renal ultrasound for microscopic hematuria, History of nicotine dependence, Urine for cytology. FU office cystoscopy [facility] Medical History PVD (peripheral vascular disease) with claudication Elevated cholesterol Personal history of COVID-19 BRANDAN (generalized anxiety disorder) Oxygen dependent Urinary retention Abdominal pain Respiratory failure with hypoxia COPD (chronic obstructive pulmonary disease) Mucus plugging of bronchi PAD (peripheral artery disease) AAA (abdominal aortic aneurysm) without rupture Emphysema lung Surgical History Hernia, ventral (04/19/23) Hx of hand surgery (~1984) Social History Household Members: Spouse Housing: House Are you a primary health care consultant to a significant other at home: No Do you presently have visiting nurse or other home services: No Alcohol intake: former Patient Tobacco Use Status: Former Tobacco user Quit Date: 2015 Tobacco use type: Cigarette Second Hand Smoke Exposure: Yes (son lives with patient and smokes in the house and car) service: No Review of Systems Const All systems reviewed & are unremarkable except as noted in HPI and below Reports no additional complaints Eyes Reports no additional complaints ENT Reports no additional complaints Card Reports no additional complaints Resp Reports no additional complaints GI Reports no additional complaints Reports as per HPI Musc Reports no additional complaints Skin/Breast Reports system reviewed and no additional complaints, except as documented Neuro Reports no additional complaints Psych Reports no additional complaints Endo Reports no additional complaints Larry/Lymph Reports no additional complaints Aller/Immun Reports no additional complaints Physical Exam Const General: healthy appearing, no acute distress and well developed Orientation/consciousness: patient oriented x3 HEENT Head: Yes normocephalic and Yes atraumatic Eyes Conjunctivae: conjunctivae normal Neck Neck: Yes normal visual inspection Chest Chest palpation & inspection: normal inspection of the chest Resp Other: on supplemental O2 therapy Effort & Inspection: normal respiratory effort Cardio Jugular venous distension: no JVD GI Inspection: Yes normal to inspection Skin General skin exam: no rashes or lesions noted Neuro General: patient oriented x3 Extrem General: No pedal edema Psych Appearance: grossly normal Affect: normal affect Office Procedures Post Void Residual Post Residual Void Post Void Residual (PVR): 74 [id number] Void Residual by ultrasound Results AMB Urinalysis, Automated UA Leukoctes 0 Lawrence/uL Last Edit by CHOCO Kennedy on 06/14/23 11:44 UA Nitrite Negative Last Edit by CHOCO Kennedy on 06/14/23 11:44 UA Urobilinogen 0.2 mg/dL Last Edit by CHOCO Kennedy on 06/14/23 11:4 4 UA Protein 15 mg/dL Last Edit by CHOCO Kennedy on 06/14/23 11:44 UA pH 5.5 Last Edit by CHOCO Kennedy on 06/14/23 11:44 UA Blood 200 Lamont/uL Last Edit by CHOCO Kennedy on 06/14/23 11:44 3+ Giorgio Vidal 06/14/23 11:44 UA Specific [place] 1.025 Last Edit by CHOCO Kennedy on 06/14/23 11: 44 UA Ketone Negative Last Edit by CHOCO Kennedy on 06/14/23 11:44 UA Bilirubin 1 mg/dL Last Edit by CHOCO Kennedy on 06/14/23 11:44 1+ Giorgio Vidal 06/14/23 11:44 UA Glucose 0 mg/dL Last Edit by CHOCO Kennedy on 06/14/23 11:44 Results Reviewed Results Reviewed: Laboratory Last Values Urine pH (Auto) 5.5 06/14/23 11:43 Specific [place] (Auto) 1.025 06/14/23 11:43 Urine Protein (Auto) 15 mg/dL 06/14/23 11:43 Glucose (UA)(Auto) 0 mg/dL 06/14/23 11:43 Urine Ketones (Auto) Negative 06/14/23 11:43 Urine Blood (Auto) 200 Lamont/uL 06/14/23 11:43 Urine Nitrite (Auto) Negative 06/14/23 11:43 Urine Bilirubin (Auto) 1 mg/dL 06/14/23 11:43 Urine Urobilinogen (Auto) 0.2 mg/dL 06/14/23 11:43 Leukocyte Esterase (Auto) 0 Lawrence/uL 06/14/23 11:43 Assessment & Plan Assessment & Plan (1) Microscopic hematuria: Code(s): R31.29 - Other microscopic hematuria Category: Medical (2) BPH loc w urin obs/LUTS: Code(s): N40.1 - Benign prostatic hyperplasia with lower urinary tract symptoms Category: Medical Plan Renal ultrasound for microscopic hematuria History of nicotine dependence Urine for cytology Follow-up office cystoscopy Orders: Orders AMB Urinalysis Automated 06/14/23 Z13.9 - Encounter for screening, unspecified AMB Post Void Residual by ultrasound 06/14/23 N39.8 - Other specified disorders of urinary system Urine Cytology 06/14/23 R31.9 - Hematuria, unspecified Patient Instructions: The patient had an opportunity to ask questions regarding treatment plan. All questions were answered. Laboratory studies were discussed and reviewed in detail. No major barriers to understanding were identified. The patient expressed understanding and agreement with the above treatment plan. The patient is aware they should contact our office by phone for worsening of their current condition or the appearance of new symptoms. Compliance is encouraged with any medications and followup testing that is ordered. It is a privilege to be allowed the opportunity to participate in the urologic care of your patient. If you have any questions or concerns regarding treatment for the above conditions please do not hesitate to contact me. The office telephone contact is [phone]. This note is constructed in part using voice recognition software. While every effort has been made to ensure accuracy car repairer errors may have been included. Yours sincerely, George Kamara MD Coding Level of Care Code New Pt Level 4 (17199) Diagnoses Microscopic hematuria R31.29 BPH loc w urin obs/LUTS N40.1 CPT Codes Post Residual Void - PVR CPT Code: 16570-Aufz Void Residual by ultrasound ([id number])
== END 2023-06-14 12:09 | disposition home or self-care (01) ==
PROVIDERS: PCP Internal Medicine; Visit Provider Urology
DX: R31.29 Other microscopic hematuria (principal); N40.1 Benign prostatic hyperplasia with lower urinary tract symptoms
CPT/HCPCS: 99204

== ENCOUNTER 2023-06-14 10:21 | Outpatient (REF) | payer MEDICARE, SELFPAY ==
[2023-06-14 17:06] LABS: Urine Cytology See Pathology rpt
== END 2023-06-14 10:22 | disposition home or self-care (01) ==
LOC: HO.LAB 10:21
PROVIDERS: PCP Internal Medicine; Visit Provider Urology
DX: N40.1 Benign prostatic hyperplasia with lower urinary tract symptoms (principal); R33.8 Other retention of urine; R31.29 Other microscopic hematuria; Z79.82 Long term (current) use of aspirin
CPT/HCPCS: 51798; 81003; 88112; 99202

== ENCOUNTER 2023-07-10 13:36 | Outpatient (AMB) | payer MEDICARE, SELFPAY ==
--- NOTE | 2023-07-10 14:00 | MHC.OFFVIS ---
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 Patient was encouraged to increase fluid intake and activity to promote better bowel motility. Patient will use simethicone on as needed basis 2 to 3 times a day. Diastasis recti seen on exam. Small abdominal wall hernia 10 cm above umbilicus. Tender to touch. Patient is being referred to General surgery. Consult with Dr. Stern general surgeon who will see patient today. Colonoscopy in 2010. Patient is on continuous oxygen, will consider sending her for colonoscopy after his surgery if he agrees. Patient most likely will need to go under anesthesia for that due to his underlying emphysema, COPD and SOB symptoms. At this time patient has no other bowel issues. No family history of colorectal cancer. No melena, hematochezia, unintentional weight loss or ribbon like stools. Both patient and his are agreeable to this plan and verbalizes understanding of instructions. They were given the opportunity to ask questions and all questions answered. ? Thank you for allowing me to participate in his care Orders Referrals Urology Referral R33.9 General Surgery Referral K42.9 Medications New polyethylene glycol 3350 (Miralax) 17 grams PO DAILY 510 grams 2RF K59.00 simethicone (Gas Relief (simethicone)) 125 mg PO TID-QID PRN 120 caps 2RF abdominal distention R14.0 TODAY'S VISIT Patient is here today for follow-up. Patient has seen General surgery and had umbilical hernia repair back in February. Patient continues to have a postprandial right upper quadrant pain and left upper quadrant pain. Left upper quadrant pain happens occasionally. Patient states that he feels stabbing like pain maybe once or twice a week. Patient reports that he is moving his bowels better now. Taking MiraLax daily. Patient had CT scan in February that showed cholelithiasis without cholecystitis. Patient denies any nausea or vomiting. Denies any melena, hematochezia, unintentional weight loss or ribbon like stools. Patient denies any dyspepsia, dysphagia or odynophagia. [facility] Medical History PVD (peripheral vascular disease) with claudication Elevated cholesterol Personal history of COVID-19 BRANDAN (generalized anxiety disorder) Oxygen dependent Urinary retention Abdominal pain Respiratory failure with hypoxia COPD (chronic obstructive pulmonary disease) Mucus plugging of bronchi PAD (peripheral artery disease) AAA (abdominal aortic aneurysm) without rupture Emphysema lung Surgical History Hernia, ventral (04/19/23) Hx of hand surgery (~1984) Social History Household Members: Spouse Housing: House Are you a primary home day care provider to a significant other at home: No Do you presently have visiting nurse or other home services: No Alcohol intake: former Patient Tobacco Use Status: Former Tobacco user Quit Date: 2015 Tobacco use type: Cigarette Second Hand Smoke Exposure: Yes (son lives with patient and smokes in the house and car) service: No Review of Systems Const Denies weight gain and Denies weight loss ENT Reports no additional complaints, Denies dysphagia and Denies odynophagia Card Reports no additional complaints Resp Reports no additional complaints GI Reports abdominal pain (RUQ, LUQ), Denies belching, Denies melena, Reports bloating, Denies change in bowel habits, Denies dysphagia, Denies excessive flatus, Denies dyspepsia, Denies heartburn, Denies diarrhea, Denies loose stools, Denies nausea, Denies odynophagia and Denies vomiting Reports no additional complaints Musc Reports no additional complaints Neuro Reports no additional complaints Psych Reports no additional complaints Endo Reports no additional complaints Physical Exam Vital Signs: Last Vital Signs Pulse 80 07/10/23 14:01 BP 145/78 H 07/10/23 14:01 BMI result Body Mass Index 23.8 Const General: no acute distress Orientation/consciousness: patient oriented x3 Resp Other: Portable oxygen, on O2 via nasal cannula Effort & Inspection: able to speak in complete sentences, no tracheal deviation and symmetric chest movement Auscultation: clear to auscultation bilaterally Cardio Rate: regular rate GI Inspection: No distended and Yes other (Diastasis rectus, small hernia) Palpation (GI): Soft to palpation, not firm, nontender and No hepatosplenomegaly present Auscultation: normal bowel sounds General: Yes no CVA tenderness Back/Spine/Pelvis Back: no CVA tenderness Skin General skin exam: elasticity normal, turgor normal and dry skin Neuro General: patient oriented x3 Psych Appearance: grossly normal Mental Status: mental status grossly normal Assessment & Plan Assessment & Plan (1) Hernia of abdominal wall: Code(s): K43.9 - Ventral hernia without obstruction or gangrene (2) Rectus diastasis: Code(s): M62.08 - Separation of muscle (nontraumatic), other site (3) IBS (irritable bowel syndrome): Code(s): K58.9 - Irritable bowel syndrome without diarrhea Qualifiers: Irritable bowel syndrome type: without diarrhea Qualified Code(s): K58.9 - Irritable bowel syndrome without diarrhea (4) RUQ abdominal pain: Code(s): R10.11 - Right upper quadrant pain (5) Cholelithiasis: Code(s): K80.20 - Calculus of gallbladder without cholecystitis without obstruction Qualifiers: Cholelithiasis location: gallbladder Cholecystitis presence: without cholecystitis Biliary obstruction: without biliary obstruction Qualified Code(s): K80.20 - Calculus of gallbladder without cholecystitis without obstruction Plan Patient will continue to avoid dietary triggers. Will send him for HIDA scan. Continue MiraLax daily. Left upper quadrant pain most likely related to patient is wearing tight clothing with belt. Pain is right underneath the ribcage. Patient was encouraged to wear loose clothing like sweat pants. I will see him in 3 months, sooner on as needed basis. Patient is agreeable to this plan and verbalizes understanding of instructions. He was given the opportunity to ask questions and all questions answered. Thank you for allowing me to participate in his care Orders: Orders NM gastric emptying study Today R10.11 - Right upper quadrant pain Coding Level of Care Code Est Pt Level 4 (85504) Diagnoses Hernia of abdominal wall K43.9 Rectus diastasis M62.08 Irritable bowel syndrome without diarrhea K58.9 Irritable bowel syndrome type: without diarrhea RUQ abdominal pain R10.11 Calculus of gallbladder without cholecystitis without obstruction K80.20 Cholelithiasis location: gallbladder Cholecystitis presence: without cholecystitis Biliary obstruction: without biliary obstruction Time Spent (min) 40 Comment 25 minutes spent with patient and additional 15 minutes spent reviewing his records
[2023-07-10 14:01] VITALS: BP 145/78; PULSE 80; BMI 23.8
== END 2023-07-10 14:21 | disposition home or self-care (01) ==
PROVIDERS: PCP Internal Medicine; Visit Provider Nurse Practitioner Family
DX: K43.9 Ventral hernia without obstruction or gangrene (principal); M62.08 Separation of muscle (nontraumatic), other site; K58.9 Irritable bowel syndrome, unspecified; R10.11 Right upper quadrant pain; K80.20 Calculus of gallbladder without cholecystitis without obstruction
CPT/HCPCS: 99214

== ENCOUNTER → 2023-07-10 13:36 | Outpatient (BNVA) | payer MEDICARE, SELFPAY | PROVIDERS: PCP Internal Medicine; Visit Provider Nurse Practitioner Family | DX: K80.20 Calculus of gallbladder without cholecystitis without obstruction (principal); K43.9 Ventral hernia without obstruction or gangrene; R10.11 Right upper quadrant pain; R10.12 Left upper quadrant pain; K58.9 Irritable bowel syndrome, unspecified; M62.08 Separation of muscle (nontraumatic), other site; Z99.81 Dependence on supplemental oxygen | CPT/HCPCS: 99212 ==

== ENCOUNTER 2023-07-15 13:27 | Outpatient (AMB) | payer MEDICARE, SELFPAY ==
[2023-07-15 13:44] VITALS: BP 132/74; PULSE 90; O2SAT 92; BMI 22.8
--- NOTE | 2023-07-15 13:44 | A.OFFVIS_ITS ---
Vital Signs 07/15/23 13:44 Height 5 ft 9 in Weight 154 lb 5.177 oz BMI 22.8 BP 132/74 Blood Pressure Location Lt brachial Position Sitting Pulse 90 Pulse Source Pulse Oximeter Pulse Oximetry (%) 92 Oxygen Delivery Method Nasal Cannula Intake Visit Reasons: Emphysema Intake Note: pt is here for follow up and states it is going okay but he is coughing a lot with a lot of phlegm that will not come out. 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: No Allergies No Known Allergies Allergy (Verified 07/15/23 14:09) Medication List - Last Reconciled 07/15/23 by Valerie Geronimo MD albuterol sulfate 90 mcg/actuation (Ventolin HFA) 2 puffs inhalation Q6H PRN aspirin 81 mg PO DAILY clopidogrel 75 mg PO DAILY famotidine 20 mg PO DAILY ncytxuzisgy-dpkvszjbh-ibxmkqie 100-62.5-25 mcg (Trelegy Ellipta) 1 ea inhalation DAILY ipratropium-albuterol 0.5 mg-3 mg(2.5 mg base)/3 mL 3 mL inhalation QID PRN nebulizers As directed polyethylene glycol 3350 (Gavilax) 17 grams PO DAILY simethicone (Gas Relief (simethicone)) 125 mg PO TID-QID PRN tamsulosin (Flomax) 0.4 mg PO BEDTIME Do you need a note to return to daycare/school/sports/work: No HPI HPI Emphysema: Details: Richardson is 78 years old gentleman, here for follow-up after 3 months for his pulmonary problems. He does have advanced chronic obstructive pulmonary disease, due to advanced pulmonary emphysema,, bibasilar fibrotic changes and bronchiectasis. He uses Trelegy Ellipta once a day, DuoNeb updrafts 3 to 4 times a day, and oxygen 24 hours a day. Says , that he has had no acute infection or exacerbation. His main complaint is that he brings up some phlegm, after bouts of cough. Also when he uses the nebulizer he brings up some phlegm. Is mostly white. He claims that his respiratory status has remained as stable as before. He eats fairly well and is careful when swallowing, has had no choking episodes. [facility] Medical History PVD (peripheral vascular disease) with claudication Elevated cholesterol Personal history of COVID-19 BRANDAN (generalized anxiety disorder) Oxygen dependent Urinary retention Abdominal pain Respiratory failure with hypoxia COPD (chronic obstructive pulmonary disease) Mucus plugging of bronchi PAD (peripheral artery disease) AAA (abdominal aortic aneurysm) without rupture Emphysema lung Surgical History Hernia, ventral (04/19/23) Hx of hand surgery (~1984) Social History Household Members: Spouse Housing: House Are you a primary healthcare financial analyst to a significant other at home: No Do you presently have visiting nurse or other home services: No Alcohol intake: former Patient Tobacco Use Status: Former Tobacco user Quit Date: 2015 Tobacco use type: Cigarette Second Hand Smoke Exposure: Yes (son lives with patient and smokes in the house and car) service: No Review of Systems Const All systems reviewed & are unremarkable except as noted in HPI and below Eyes Reports no additional complaints ENT Reports no additional complaints Card Denies chest pain, Denies irregular heart rhythm, Denies leg edema and Reports dyspnea on exertion Resp Reports as per HPI and Reports dyspnea on exertion GI Reports constipation and Reports dyspepsia Reports no additional complaints Musc Reports other (GENERAL WEAKNESS) Skin/Breast Reports system reviewed and no additional complaints, except as documented Neuro Reports no additional complaints Psych Reports no additional complaints Physical Exam Vital Signs: Last Vital Signs Pulse 90 07/15/23 13:44 BP 132/74 07/15/23 13:44 Pulse Ox 92 07/15/23 13:44 Oxygen Delivery Method Nasal Cannula 07/15/23 13:44 BMI result Body Mass Index 22.8 Last Vital Signs Temp 97.8 F 01/30/23 08:38 Pulse 109 H 01/30/23 08:38 Resp 24 H 01/30/23 08:38 BP 131/68 01/30/23 08:38 Pulse Ox 94 01/30/23 08:38 O2 Del Method Nasal Cannula 01/30/23 08:38 O2 Flow Rate 3 01/30/23 08:38 BMI result Body Mass Index 23.9 Const General: comfortable (Except for shortness of breath during conversation), no acute distress, alert and awake Orientation/consciousness: patient oriented x3 HEENT Head: Yes normal to inspection General nose exam: No nasal polyps present and No nasal discharge present Face and sinus: Yes sinuses nontender Mouth: oropharynx normal Teeth and gingiva: edentulous Throat: Yes posterior oropharynx normal Eyes General: appearance normal, both eyes and all related structures Neck Neck: Yes normal visual inspection, Yes no lymphadenopathy, Yes trachea midline and Yes no JVD Thyroid: Thyroid normal Chest Chest palpation & inspection: normal inspection of the chest, normal palpation of entire chest wall and no tenderness Resp Other: PERCUSSION NOTE IS RESONANT, BREATH SOUNDS ARE VERY DISTANT, ESPECIALLY OVER THE RIGHT LOWER LOBE AND LEFT BASE, WITH PROLONGED EXPIRATORY PHASE. NO WHEEZES. A FEW INSPIRATORY CREPS OVER THE RIGHT BASE. Cardio Palpation: normal PMI Rate: regular rate Rhythm: regular rhythm Heart sounds: no gallops and no murmurs GI Palpation (GI): Soft to palpation, nontender, No hepatosplenomegaly present and no masses Auscultation: normal bowel sounds Back/Spine/Pelvis Thoracic/Lumbar Spine: thoracic and lumbar spine normal to inspection and thoraco-lumbar ROM limited Skin General skin exam: no rashes or lesions noted Neuro General: patient oriented x3 and no focal motor deficits Cranial nerves: Yes CN's II-XII intact bilaterally Extrem General: Yes normal to inspection, Yes no clubbing, cyanosis or edema and Yes no calf tenderness Psych Other: POOR GENERAL HYGIENE Appearance: disheveled Mental Status: mental status grossly normal Speech and movement: Normal speech and movement present Assessment & Plan Assessment & Plan (1) COPD (chronic obstructive pulmonary disease): Comment: PATIENT HAS ADVANCED CHRONIC OBSTRUCTIVE PULMONARY DISEASE. HE IS PRONE TO HAVE RECURRENT RESPIRATORY INFECTIONS. AT PRESENT HE IS STABLE EXPECTED. Code(s): J44.9 - Chronic obstructive pulmonary disease, unspecified Category: Medical Plan: Continue Trelegy Ellipta 1 inhalation daily Ipratropium-albuterol solution in [facility] t.i.d.. Albuterol HFA 2 puffs Q 4-6 hours p.r.n.. (2) Respiratory failure with hypoxia: Comment: PATIENT HAS HYPOXEMIA, BEING TREATED WITH OXYGEN SUPPLEMENTATION Code(s): J96.91 - Respiratory failure, unspecified with hypoxia Category: Medical Plan: Use O2 2 L/minute at rest and 3 L/minute when walking around (3) Mucus plugging of bronchi: Comment: PER CT SCAN ON 01/29/23, HE WAS FOUND TO HAVE MUCUS PLUGGING OF THE BRONCHI IN THE LOWER LOBES ESPECIALLY IN RIGHT LOWER LOBE. HE IS A HIGH RISK FOR BRONCHOSCOPY. He is successfully expectorating mucus after using the DuoNeb updrafts. Code(s): T17.500A - Unspecified foreign body in bronchus causing asphyxiation, initial encounter Category: Medical Plan: Continue using DuoNeb updraft Q 6 hours while awake ( 3 times a day )
== END 2023-07-15 14:09 | disposition home or self-care (01) ==
LOC: HO.HPS 13:28
PROVIDERS: PCP Internal Medicine; Visit Provider Internal Medicine
DX: J44.9 Chronic obstructive pulmonary disease, unspecified (principal); J96.91 Respiratory failure, unspecified with hypoxia; T17.500A Unspecified foreign body in bronchus causing asphyxiation, initial encounter
CPT/HCPCS: 99213

== ENCOUNTER → 2023-07-15 13:28 | Outpatient (BNVA) | payer MEDICARE, SELFPAY | PROVIDERS: PCP Internal Medicine; Visit Provider Internal Medicine | DX: J96.91 Respiratory failure, unspecified with hypoxia (principal); J43.9 Emphysema, unspecified; J44.9 Chronic obstructive pulmonary disease, unspecified; R46.0 Very low level of personal hygiene; T17.500A Unspecified foreign body in bronchus causing asphyxiation, initial encounter; Z99.81 Dependence on supplemental oxygen; Z79.899 Other long term (current) drug therapy | CPT/HCPCS: 99212 ==

== ENCOUNTER 2023-07-20 12:11 | Emergency (ER) | payer OTHER, MEDICARE, SELFPAY ==
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
[2023-07-20 12:17] VITALS: BP 161/104; BP 168/68; PULSE 91; PULSE 97; RESP 18; TEMP 36.6; O2SAT 95; O2SAT 98; BMI 22.6
[2023-07-20] MEDS: oxyCODONE HCl Immed Release 5 MG TABLET PO (12:41)
[2023-07-20 12:42] VITALS: BP 142/76; PULSE 82; RESP 18
[2023-07-20 16:53] VITALS: BP 171/85; PULSE 80; RESP 18; TEMP 36.6; O2SAT 97
== END 2023-07-20 16:55 | disposition home or self-care (01) ==
PROVIDERS: Emergency Provider Student in an Organized Health Care Education/Training Program
DX: S16.1XXA Strain of muscle, fascia and tendon at neck level, initial encounter (principal); J43.9 Emphysema, unspecified; V89.2XXA Person injured in unspecified motor-vehicle accident, traffic, initial encounter; Y93.9 Activity, unspecified; Y92.410 Unspecified street and highway as the place of occurrence of the external cause; Y99.9 Unspecified external cause status; Z99.81 Dependence on supplemental oxygen
CPT/HCPCS: 70450; 72125; 99284

== ENCOUNTER 2023-07-25 13:31 | Outpatient (AMB) | payer MEDICARE, SELFPAY ==
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
== END 2023-07-25 14:11 | disposition home or self-care (01) ==
PROVIDERS: PCP Internal Medicine; Visit Provider Urology
DX: R31.29 Other microscopic hematuria (principal); N40.1 Benign prostatic hyperplasia with lower urinary tract symptoms; Z13.9 Encounter for screening, unspecified
CPT/HCPCS: 52000; 99213

== ENCOUNTER → 2023-07-25 13:31 | Outpatient (BNVA) | payer MEDICARE, SELFPAY | PROVIDERS: PCP Internal Medicine; Visit Provider Urology | DX: R31.29 Other microscopic hematuria (principal); N40.1 Benign prostatic hyperplasia with lower urinary tract symptoms; N13.8 Other obstructive and reflux uropathy | CPT/HCPCS: 52000; 81003; 99212 ==

== ENCOUNTER → 2023-07-26 10:52 | Outpatient (REF) | payer MEDICARE, SELFPAY ==
--- NOTE | ~2023-07-26 | NM_ITS ---
EXAMINATION: BILIARY TRACT IMAGING STUDY WITH CCK CLINICAL INFORMATION: Right upper quadrant abdominal pain.. COMPARISON: CT of the abdomen and pelvis done on 02/01/2023.. TECHNIQUE: Serial gamma scintillation camera images were obtained over the abdomen for a total observation period of 60 minutes following the intravenous administration of 5.0 mCi Tc-99m mebrofenin. FINDINGS: There is good concentration of activity in the liver by 5 minutes post injection. Biliary activity is visualized by 15 minutes. The gallbladder is well visualized by 35 minutes. Small bowel is well visualized by 40 minutes. At 60 minutes post radiopharmaceutical injection, a 30-minute infusion of 1.4 micrograms Sincalide was then begun and an additional 40 minutes of images were obtained. There is poor emptying of the gallbladder. By the end of the study there is good clearance of activity from the liver and visualization of diffuse small bowel activity. The calculated gallbladder ejection fraction is 16% (Normal range of gallbladder ejection fraction is between 35-80%; GBEF <35% is considered biliary hypokinesia and >80% is considered biliary hyperkinesia; Ref. #1-Clinical Journal of Gastroenterology (2020) 14:1308?1317; Ref.#2-https://www.[employer].com/tvbpkq-iyvifmg-dnnz/JSM-Gastroent [email or web address]). NM/NM hepatobiliary w pharm IMPRESSION: Visualization of the gallbladder is evidence of a patent cystic duct and strong evidence against the diagnosis of acute cholecystitis. The common bile duct is patent. Gallbladder emptying and ejection fraction are abnormal. Liver function appears normal.
== END ==
LOC: HO.NUCMED 10:52
PROVIDERS: PCP Internal Medicine; Visit Provider Nurse Practitioner Family
DX: R10.11 Right upper quadrant pain (principal)
CPT/HCPCS: 78227; A9537; J2805

== ENCOUNTER 2023-11-11 14:53 | Inpatient (IN) | payer MEDICARE, OTHER, SELFPAY ==
[2023-11-11] VITALS (9 sets, daily range): BP systolic 121–155; BP diastolic 64–86; PULSE 88–128; RESP 18–30; TEMP 36.4–37.2; O2SAT 86–96; BMI 22.9
--- NOTE | 2023-11-11 | ECG_ITS ---
Test Reason : SOB Blood Pressure : / mmHG Vent. Rate : 125 BPM Atrial Rate : 125 BPM P-R Int : 112 ms QRS Dur : 066 ms QT Int : 396 ms P-R-T Axes : 000 002 050 degrees QTc Int : 571 ms Sinus tachycardia Nonspecific ST and T wave abnormality Abnormal ECG When compared with ECG of 29-JAN-2023 14:33, No significant change was found Referred By: Tam Barrow Electronically Signed By:MARIO ENRIQUEZ
--- NOTE | ~2023-11-11 | XR_ITS ---
EXAMINATION: XR CHEST CLINICAL INFORMATION: Shortness of breath COMPARISON: Chest x-ray, CT of chest January 29, 2023 TECHNIQUE: Frontal portable view of the chest was obtained. 1532 hours FINDINGS: Marked emphysematous change of lungs. Linear parenchymal scarring and atelectasis in lungs bilaterally. No acute airspace disease. No pleural effusion or pneumothorax. Chronic blunting of right costophrenic angle. No significant pleural effusion. Heart size is normal. Cardiac mediastinal contours are normal. Status post thoracoplasty midthoracic vertebral body. XR/XR chest 1V IMPRESSION: Marked emphysematous change of lungs. No acute abnormality of the chest.
[2023-11-11] MEDS: Albuterol Sulfate 7.5 MG, Albuterol/Iprat 2.5/0.5MG 3 ML 3 ML INHALE (15:03)
--- NOTE | 2023-11-11 15:05 | PC.NURSE ---
Patient arrival to ED with EMS sititng up on stretcher on CPAP. Anxious, labored breathing, saturations 95% C02 20. Per EMS pt not tolerating CPAP well. Respiratory and care team at bedside to assess pt.
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
[2023-11-11] MEDS: Magnesium Sulfate/H2O 2 GM/50 ML PIGGYBACK IV (15:13)
[2023-11-11 15:14] LABS: Basophils Percent Auto 0.3 % (0-2); Eosinophils Absolute Auto 0.1 X10*3/uL (0.0-0.4); Eosinophils Percent Auto 0.8 % (0-4); Hematocrit 39.9 % (42.0-52.0); Hemoglobin 13.1 g/dl (14.0-18.0); Imm Gran Abs Auto 0.06 X10*3/uL (0.00-0.03); Imm Gran Pct Auto 0.5 % (0.0-0.4); Lymphocytes Absolute Auto 1.7 X10*3/uL (1.2-4.9); Lymphocytes Percent Auto 12.8 % (20-40); MANUAL DIFF FLAG SCAN; Mean Corpuscular HGB Conc 32.8 g/dl (31.0-36.0); Mean Corpuscular Hemoglobin 30.7 pg (27.0-33.0); Mean Corpuscular Volume 93.4 fL (80.0-98.0); Monocytes Percent Auto 14.9 % (2-11); Neutrophils Absolute Auto 9.3 x10*3/uL (2.0-8.3); Neutrophils Percent Auto 70.7 % (45-73); Platelet Count 292 X10*3/uL (160-400); Red Blood Count 4.27 X10*6/uL (4.60-5.80); Red Cell Distribution Width 13.9 % (11.0-16.0); SCAN SMEAR FLAG 1; White Blood Count 13.1 X10*3/uL (4.8-10.8)
[2023-11-11 15:18] LABS: Venous Blood Gas Refer to POC result
[2023-11-11 15:19] LABS: VBG Base Excess 2.1 mmol/L; VBG HCO3 27 mmol/L (22-26); VBG pCO2 44 mmHg; VBG pH 7.39 (7.32-7.43); VBG pO2 37 mmHg
[2023-11-11 15:26] LABS: Alanine Aminotransferase 10 U/L (0-40); Alkaline Phosphatase 69 U/L (39-117); Anion Gap 14 (12-20); Aspartate Amino Transferase 15 U/L (5-37); Bilirubin Total 0.6 mg/dL (0.0-1.0); Blood Urea Nitrogen 28 mg/dL (9-16); Calcium 9.2 mg/dL (8.4-10.2); Carbon Dioxide 23 mmol/L (22-29); Chloride 107 mmol/L (96-108); Creatinine Clr Calc Pharmacy 59.9; Estimated Glomerular Filt Rate > 60; Glucose Random 112 mg/dL (60-115); Magnesium 2.1 mg/dL (1.6-2.6); Sodium 140 mmol/L (135-145); Total Protein 7.7 g/dL (6.5-8.0)
[2023-11-11 15:31] LABS: B Type Natriuretic Peptide 30 pg/mL (<100); Troponin-I High Sensitivity 2.8 ng/L (<3.5-35.0)
[2023-11-11 15:47] LABS: SLIDE REVIEW VERIFIED
[2023-11-11 15:54] LABS: Influenza A PCR NEGATIVE (Negative); Influenza B PCR NEGATIVE (Negative); Resp Syncy Virus RNA Qual PCR NEGATIVE (Negative); SARS COV2 PCR INHOUSE NEGATIVE (Negative)
--- NOTE | 2023-11-11 18:24 | PC.NURSE ---
Patient sating 88% via NC , switched to oxy mask sating 92% on 5 L, denies pain or discomfort
--- NOTE | 2023-11-11 18:42 | P.HPHOSP_ITS ---
History of Present Illness Date of Service: 11/11/23 Attending physician on admission: Chi Bonilla Chief Complaint: sob, hypoxia 70-year-old male with history of COPD with chronic hypoxemic respiratory failure on 2 L supplemental O2 at baseline, PAD with claudication, AAA, reflux esophagitis presented to the ED via EMS from home after his son called EMS due to the patient feeling short of breath and dry cough which he reports started this morning. He lives at home with his son and niece. He denies any sick contacts. He states he felt warm but denies any fevers, chills, sore throat, congestion, abdominal pain, nausea, vomiting, diarrhea, productive cough, palpitations, lightheadedness, chest pain. Has been compliant with all of his inhalers. On arrival, EMS reports oximetry 84% and place patient on OxyMask at 5 L. Upon arrival to the ED, was 86% on room air and was placed on 4 L via OxyMask, oximetry now 93% on 3 L. he was initially tachycardic to 128 and tachypneic to 30. He has a leukocytosis of 13.1. Renal function baseline, electrolyte levels normal. Troponin 2.8, BNP 30. Negative for COVID, RSV flu. Chest x-ray negative for acute cardiopulmonary abnormality. He was given 125 mg IV Solu-Medrol per EMS as well as multiple DuoNebs and 2 g magnesium. Despite this, patient remains acutely hypoxic requiring 3 L supplemental O2 with diminished lung sounds in dyspnea. Review of Systems 2 Review of Systems: Yes all other systems are reviewed and are negative [facility] Medical History PVD (peripheral vascular disease) with claudication Elevated cholesterol Personal history of COVID-19 BRANDAN (generalized anxiety disorder) Oxygen dependent Urinary retention Abdominal pain Respiratory failure with hypoxia COPD (chronic obstructive pulmonary disease) Mucus plugging of bronchi PAD (peripheral artery disease) AAA (abdominal aortic aneurysm) without rupture Emphysema lung Surgical History Hernia, ventral (04/19/23) Hx of hand surgery (~1984) Social History Household Members: Spouse Housing: House Are you a primary adult daycare coordinator to a significant other at home: No Do you presently have visiting nurse or other home services: No Alcohol intake: former Patient Tobacco Use Status: Former Tobacco user Tobacco use type: Cigarette Smoked in Last 30 Days: No Second Hand Smoke Exposure: Yes (son lives with patient and smokes in the house and car) Use of substances other than those prescribed or required for medical reasons: No Advance Directives: No Advance Directives Information Provided: No service: No Meds Allergies Allergy/AdvReac Type Severity Reaction Status Date / Time No Known Allergies Allergy Verified 11/11/23 15:00 Home Medications ?Medication ?Instructions ?Recorded ?Confirmed ?Last Taken ?Type albuterol sulfate 90 mcg/actuation 2 puff inhalation Q6H PRN 11/08/22 11/11/23 04/19/23 History aerosol inhaler (Ventolin HFA) Shortness Of Breath Or Wheezing aspirin 81 mg tablet,delayed 81 mg PO DAILY 11/08/22 11/11/23 01/29/23 History release clopidogrel 75 mg tablet 75 mg PO DAILY 04/16/23 11/11/23 04/17/23 History fluticasone fur. 100 mcg-umeclid 1 ea inhalation DAILY 04/16/23 11/11/23 04/19/23 History 62.5 mcg-vilant 25 mcg inhalat.powder (Trelegy Ellipta) Physical Exam 2 Vital Signs and Narrative: Vital Signs: Last Vital Signs Temp 98.7 F 11/11/23 18:22 Pulse 99 11/11/23 18:22 Resp 18 11/11/23 18:22 BP 124/66 11/11/23 18:22 Pulse Ox 90 L 11/11/23 18:22 O2 Del Method Oxymask 11/11/23 18:22 O2 Flow Rate 5 11/11/23 18:22 Oxygen Flow Rate 3 11/11/23 14:58 BMI result Body Mass Index 22.9 Constitutional - Awake and Alert, No apparent distress Eyes - PERRLA, EOMI Cardiovascular - S1S2, RRR, No edema Respiratory - Normal lung expansion, Normal respiratory effort, No respiratory distress on 3L. Diminished lung sounds bilaterally Gastrointestinal - NT / ND; +BS; No rebound or guarding Extremities - no calf tenderness bilaterally, no swelling Skin - Warm/Dry Neurological - Alert & oriented x3 Psychological - Appropriate affect Results Labs 11/11/23 15:06 11/11/23 15:05 Labs: Laboratory Results - last 24 hr 11/11/23 11/11/23 11/11/23 15:05 15:06 15:11 MCV 93.4 MCH 30.7 MCHC 32.8 RDW 13.9 Plt Count 292 D MPV 10.0 Immature Gran % (Auto) 0.5 H Neut % (Auto) 70.7 Lymph % (Auto) 12.8 L [place] % (Auto) 14.9 H Eos % (Auto) 0.8 Baso % (Auto) 0.3 Lymph # (Auto) 1.7 [place] # (Auto) 2.0 H Eos # (Auto) 0.1 Baso # (Auto) 0.0 Abs Immat Gran (auto) 0.06 H Absolute Neuts (auto) 9.3 H Absolute Nucleated RBC 0.000 Nucleated RBC % (auto) 0.0 Smear Tech's Comments VERIFIED VBG pH 7.39 VBG pCO2 44 VBG pO2 37 VBG HCO3 27 H VBG O2 Saturation 70.0 VBG Base Excess 2.1 Anion Gap 14 Estim Creat Clear Calc 59.9 Estimated GFR > 60 Random Glucose 112 Calcium 9.2 Magnesium 2.1 Total Bilirubin 0.6 AST 15 ALT 10 Alkaline Phosphatase 69 Troponin I High Sens 2.8 B-Natriuretic Peptide 30 Total Protein 7.7 Albumin 4.0 Influenza Type A (PCR) NEGATIVE Influenza Type B (PCR) NEGATIVE RSV RNA Qual (PCR) NEGATIVE SARS-CoV-2 RNA (RT-PCR) NEGATIVE Imaging Radiologist's Impressions: Impressions Chest X-Ray 11/11/23 15:30 IMPRESSION: Marked emphysematous change of lungs. No acute abnormality of the chest. Assessment and Plan (1) COPD exacerbation: Status: Resolved (2) Acute and chronic respiratory failure: Status: Acute Plan 70-year-old male with history of COPD with chronic hypoxemic respiratory failure on 2 L supplemental O2 at baseline, PAD with claudication, AAA, reflux esophagitis admitted for acute COPD exacerbation with acute on chronic hypoxemic respiratory failure #COPD exacerbation with acute on chronic hypoxemic respiratory failure with viral sepsis -leukocytosis 13.1, tachycardic, tachypneic. Lactic acidosis 2.2 due to albuterol use, not severe sepsis. At time of admission, no evidence of severe sepsis -chest x-ray negative for focal consolidation. Negative for COVID-19, RSV, influenza. Check RPP -IV methylprednisolone 40 mg b.i.d. -DuoNebs q.4h while awake. Albuterol p.r.n. -guaifenesin p.r.n. -cough is nonproductive, no indication for antibiotics at this time. No evidence of bacterial infection -continue maintenance inhalers -continue supplemental O2 to maintain oximetry 90-92%. Uses 2 L supplemental O2 at baseline #PAD/AAA -continue DAPT # reflux esophagitis -continue famotidine, simethicone # chronic normocytic anemia -H/H baseline, above transfusion threshold DVT prophylaxis-Lovenox Full code Patient requires inpatient stay at least 2 midnights for management of acute COPD exacerbation with acute on chronic hypoxemic respiratory failure with viral sepsis and will require IV steroids, scheduled nebulizers, and close monitoring of vital signs/hemodynamics to monitor for preventive compensation. Quality Stroke Does the patient have a stroke diagnosis?: No VTE Prior VTE?: No VTE Risk Level:: Medical - moderate - high VTE Device Contraindication: Treatment Not Indicated VTE Drug Contraindication: N/A - Med Ordered
[2023-11-11] MEDS: Albuterol/Iprat 2.5/0.5MG 3 ML AMPUL.NEB INHALE (19:05)
[2023-11-11 19:36] LABS: Lactic Acid 2.2 mmol/L (0.5-2.0)
[2023-11-11] MEDS: Enoxaparin Sodium 40 MG/0.4 ML SYRINGE SUBCUT (20:10)
--- NOTE | 2023-11-11 20:36 | PC.NURSE ---
Report taken from Sahra JAKC assumed care of pt at 1900. Pt A&Ox3 skin pwd, respirations even slightly labored. SpO2 93-94% on 3L NC. Pt offers no complaints. Awaiting bed assignment for admission, aware of plan of care.
[2023-11-11 21:05] LABS: Reflex Lactate? Lactic Acid Added
--- NOTE | 2023-11-11 21:32 | PHA.MEDREC ---
Pharmacy Consult ? Medication Reconciliation Pharmacy has completed the medication reconciliation. Patient doesn't know medications. Tried calling Son twice but no answer. Left message to call back. Utilized claim history
--- NOTE | 2023-11-11 22:00 | PC.NURSE ---
Repeat lactic 6.0 Hospitalist notified awaiting new orders.
[2023-11-11] MEDS: Lactated Ringers 1,000 ML 999 ML IV (22:14)
[2023-11-11 23:30] LABS: Reflex Lactate? 2 Y
[2023-11-11] MEDS: 0.9 % Sodium Chloride Flush 3 ML SYRINGE IVFLUSH (23:38)
--- NOTE | 2023-11-11 23:40 | PC.NURSE ---
SpO2 96% on 3L- decreased to 2L via NC maintaining at 94% on 2L NC.
[2023-11-12] VITALS (12 sets, daily range): BP systolic 114–157; BP diastolic 61–74; PULSE 72–117; RESP 16–28; TEMP 36.3–36.7; O2SAT 91–95; BMI 22.5
[2023-11-12 00:10] LABS: ~Lactic Acid-LAB USE ONLY 5.1 mmol/L (0.5-2.0)
[2023-11-12 05:12] LABS: MANUAL DIFF FLAG NO
[2023-11-12 05:16] LABS: Basophils Percent Auto 0.1 % (0-2); Hematocrit 35.1 % (42.0-52.0); Hemoglobin 11.6 g/dl (14.0-18.0); Imm Gran Abs Auto 0.09 X10*3/uL (0.00-0.03); Imm Gran Pct Auto 0.6 % (0.0-0.4); Lymphocytes Absolute Auto 0.6 X10*3/uL (1.2-4.9); Mean Corpuscular Hemoglobin 30.6 pg (27.0-33.0); Mean Corpuscular Volume 92.6 fL (80.0-98.0); Mean Platelet Volume 10.8 fL (9.4-12.4); Monocytes Absolute Auto 0.8 X10*3/uL (0.1-1.2); Monocytes Percent Auto 5.4 % (2-11); Neutrophils Absolute Auto 12.6 x10*3/uL (2.0-8.3); Neutrophils Percent Auto 89.9 % (45-73); Platelet Count 238 X10*3/uL (160-400); Red Blood Count 3.79 X10*6/uL (4.60-5.80); Red Cell Distribution Width 14.2 % (11.0-16.0)
[2023-11-12 05:28] LABS: Anion Gap 16 (12-20); Blood Urea Nitrogen 28 mg/dL (9-16); Carbon Dioxide 20 mmol/L (22-29); Chloride 109 mmol/L (96-108); Estimated Glomerular Filt Rate > 60; Glucose Random 152 mg/dL (60-115); Potassium 3.7 mmol/L (3.3-5.1); Sodium 141 mmol/L (135-145)
[2023-11-12] MEDS: methylPREDNISolone Sod Succ 40 MG/ML VIAL IVPUSH ×2 (06:15→19:29)
[2023-11-12] MEDS: Albuterol/Iprat 2.5/0.5MG 3 ML AMPUL.NEB INHALE ×4 (07:40→20:01)
[2023-11-12] MEDS: 0.9 % Sodium Chloride Flush 3 ML SYRINGE IVFLUSH ×3 (08:48→21:43)
[2023-11-12 09:41] LABS: Adenovirus PCR Not Detected (Not Detect.); Bordetella parapertussis PCR Not Detected (Not Detect.); Bordetella pertussis PCR Not Detected (Not Detect.); Chlamydia pneumoniae PCR Not Detected (Not Detect.); Coronavirus 229E PCR Not Detected (Not Detect.); Coronavirus HKU1 PCR Not Detected (Not Detect.); Coronavirus NL63 PCR Not Detected (Not Detect.); Coronavirus OC43 PCR Not Detected (Not Detect.); Human metapneumovirus PCR Not Detected (Not Detect.); Influenza A PCR Not Detected (Not Detect.); Influenza B PCR Not Detected (Not Detect.); Mycoplasma pneumoniae PCR Not Detected (Not Detect.); Parainfluenza 1 PCR Not Detected (Not Detect.); Parainfluenza 2 PCR Not Detected (Not Detect.); Parainfluenza 3 PCR Not Detected (Not Detect.); Parainfluenza 4 PCR Not Detected (Not Detect.); RSV PCR Not Detected (Not Detect.); Rhino/Enterovirus PCR Not Detected (Not Detect.); SARS-CoV-2 PCR Not Detected (Not Detect.)
--- NOTE | 2023-11-12 11:45 | PC.NURSE ---
pt receiving breathing treatment via RT at this time. pt tolerating well. pt continues to rest comfortably in no apparent distress. plan of care ongoing.
--- NOTE | 2023-11-12 12:36 | PC.NURSE ---
Kyle whiting [phone]
--- NOTE | 2023-11-12 14:06 | MHC.CM.PN ---
IMM delivered. Patient lives in a home w/ son and niece, who assist w/ food preparation, shopping, cleaning, etc. Patient is independent w/ dressing & hygiene. Ambulates w/ walker PRN when in community. Uses 2L O2 at baseline, supplier is [employer]. Cannot recall name of PCP or practice, but says he is active w/ a provider in [place]. No HCP. CM provided education and offered assistance. Patient declined, will speak w/ his son. DP: Goal is home w/ family support. Son to transport. CM will continue to follow.
--- NOTE | 2023-11-12 15:00 | HO.PM.IMPN ---
Subjective Subjective Date of Service: 11/12/23 Interval History: Admitted for acute hypoxic respiratory failure likely due to COPD exacerbation. Feeling better this morning shortness of breath improved, denies chest pain, no palpitations, no headache, no dizziness, no fevers, no chills, no acute issues overnight, oxygenation stable. Review of Systems All other system reviewed and are negative Physical Exam Vital Signs: Vital Signs: Last Vital Signs Temp 97.9 F 11/12/23 13:23 Pulse 117 H 11/12/23 13:23 Resp 22 H 11/12/23 13:23 BP 114/61 11/12/23 13:23 Pulse Ox 92 11/12/23 13:23 O2 Del Method Nasal Cannula 11/12/23 13:23 O2 Flow Rate 2 11/12/23 13:23 Oxygen Flow Rate 3 11/11/23 14:58 BMI result Body Mass Index 22.9 Const: Other: General awake alert x3, in no acute distress. Neck no JVD. CVS regular rate rhythm, Respiratory lungs clear to auscultation, diminished breath sound, no respiratory distress, no wheeze, no rhonchi. Gastrointestinal abdomen soft, non tender, bowel sounds audible, no guarding , no rigidity. Extremities no edema. Neuro non focal Skin no rash Appropriate affect Objective Data Active Medications Acetaminophen (Acetaminophen 325 Mg Tablet) 650 mg PO Q6H PRN PRN Reason: Pain, Mild (Pain Scale 1-3), fever or headache Albuterol/Ipratropium (Albuterol/Iprat 2.5/0.5mg 3 Ml Ampul.Neb) 3 ml INHALE RQ4H WHILE AWAKE [facility] Last Admin: 11/12/23 11:20 Dose: 3 ml Documented By: MITCHELL Calcium Carbonate (Calcium Carbonate 750 Mg Tab.Chew) 750 mg PO Q4H PRN PRN Reason: Heartburn Enoxaparin Sodium (Enoxaparin Sodium 40 Mg/0.4 Ml Syringe) 40 mg SUBCUT Q24H [facility] Last Admin: 11/11/23 20:10 Dose: 40 mg Documented By: BENJAMIN Guaifenesin (Guaifenesin 200 Mg/10 Ml 10 Ml Liquid) 10 ml PO Q6H PRN PRN Reason: Cough Magnesium Hydroxide (Milk Of Magnesia 30 Ml Oral.Susp) 30 ml PO DAILY PRN PRN Reason: Constipation Melatonin (Melatonin 3 Mg Tablet) 6 mg PO BEDTIME PRN PRN Reason: Insomnia Methylprednisolone Sodium Succinate (Methylprednisolone Sod Succ 40 Mg/Ml Vial) 40 mg IVPUSH Q12H [facility] Last Admin: 11/12/23 06:15 Dose: 40 mg Documented By: MIGDALIA Sodium Chloride (0.9 % Sodium Chloride Flush 3 Ml Syringe) 3 ml IVFLUSH QSHIFT [facility] Last Admin: 11/12/23 08:48 Dose: 3 ml Documented By: MIGDALIA Labs 11/12/23 04:29 11/12/23 04:29 Labs: Laboratory Results - last 24 hr 11/11/23 11/11/23 11/11/23 15:05 15:06 15:11 MCV 93.4 MCH 30.7 MCHC 32.8 RDW 13.9 Plt Count 292 D MPV 10.0 Immature Gran % (Auto) 0.5 H Neut % (Auto) 70.7 Lymph % (Auto) 12.8 L [place] % (Auto) 14.9 H Eos % (Auto) 0.8 Baso % (Auto) 0.3 Lymph # (Auto) 1.7 [place] # (Auto) 2.0 H Eos # (Auto) 0.1 Baso # (Auto) 0.0 Abs Immat Gran (auto) 0.06 H Absolute Neuts (auto) 9.3 H Absolute Nucleated RBC 0.000 Nucleated RBC % (auto) 0.0 Smear Tech's Comments VERIFIED VBG pH 7.39 VBG pCO2 44 VBG pO2 37 VBG HCO3 27 H VBG O2 Saturation 70.0 VBG Base Excess 2.1 Anion Gap 14 Estim Creat Clear Calc 59.9 Estimated GFR > 60 Random Glucose 112 Lactic Acid Lactic Acid F/U @ 2Hr Lactic Acid F/U @ 4Hr Calcium 9.2 Magnesium 2.1 Total Bilirubin 0.6 AST 15 ALT 10 Alkaline Phosphatase 69 Troponin I High Sens 2.8 B-Natriuretic Peptide 30 Total Protein 7.7 Albumin 4.0 Respiratory Panel Stock Adenovirus (Rapid PCR) B.pert (TEM-PCR) B.parapertussis DNA PCR C. pneumoniae DNA (PCR) Coronavirus OC43 (PCR) Coronavirus HKU1 (PCR) Coronavirus 229E (PCR) Coronavirus NL63 (PCR) Human Metapneumovir PCR Influenza A (RT-PCR) Influenza Type A (PCR) NEGATIVE Influenza B (RT-PCR) Influenza Type B (PCR) NEGATIVE M. pneumoniae (PCR) Parainfluenza 1 (PCR) Parainfluenza 2 (PCR) Parainfluenza 3 (PCR) Parainfluenza 4 (PCR) RSV (PCR) RSV RNA Qual (PCR) NEGATIVE Entero/Rhino (PCR) SARS-CoV-2 RNA (RT-PCR) NEGATIVE 11/11/23 11/11/23 11/11/23 19:00 21:03 21:28 MCV MCH MCHC RDW Plt Count MPV Immature Gran % (Auto) Neut % (Auto) Lymph % (Auto) [place] % (Auto) Eos % (Auto) Baso % (Auto) Lymph # (Auto) [place] # (Auto) Eos # (Auto) Baso # (Auto) Abs Immat Gran (auto) Absolute Neuts (auto) Absolute Nucleated RBC Nucleated RBC % (auto) Smear Tech's Comments VBG pH VBG pCO2 VBG pO2 VBG HCO3 VBG O2 Saturation VBG Base Excess Anion Gap Estim Creat Clear Calc Estimated GFR Random Glucose Lactic Acid 2.2 H* Lactic Acid F/U @ 2Hr 6.0 H* Lactic Acid F/U @ 4Hr Calcium Magnesium Total Bilirubin AST ALT Alkaline Phosphatase Troponin I High Sens B-Natriuretic Peptide Total Protein Albumin Respiratory Panel Stock Cancelled Adenovirus (Rapid PCR) Cancelled B.pert (TEM-PCR) Cancelled B.parapertussis DNA PCR Cancelled C. pneumoniae DNA (PCR) Cancelled Coronavirus OC43 (PCR) Cancelled Coronavirus HKU1 (PCR) Cancelled Coronavirus 229E (PCR) Cancelled Coronavirus NL63 (PCR) Cancelled Human Metapneumovir PCR Cancelled Influenza A (RT-PCR) Cancelled Influenza Type A (PCR) Influenza B (RT-PCR) Cancelled Influenza Type B (PCR) M. pneumoniae (PCR) Cancelled Parainfluenza 1 (PCR) Cancelled Parainfluenza 2 (PCR) Cancelled Parainfluenza 3 (PCR) Cancelled Parainfluenza 4 (PCR) Cancelled RSV (PCR) Cancelled RSV RNA Qual (PCR) Entero/Rhino (PCR) Cancelled SARS-CoV-2 RNA (RT-PCR) Cancelled 11/11/23 11/11/23 11/12/23 21:38 23:43 04:29 MCV 92.6 MCH 30.6 MCHC 33.0 RDW 14.2 Plt Count 238 MPV 10.8 Immature Gran % (Auto) 0.6 H Neut % (Auto) 89.9 H Lymph % (Auto) 4.0 L [place] % (Auto) 5.4 Eos % (Auto) 0.0 Baso % (Auto) 0.1 Lymph # (Auto) 0.6 L [place] # (Auto) 0.8 Eos # (Auto) 0.0 Baso # (Auto) 0.0 Abs Immat Gran (auto) 0.09 H Absolute Neuts (auto) 12.6 H Absolute Nucleated RBC 0.000 Nucleated RBC % (auto) 0.0 Smear Tech's Comments VBG pH VBG pCO2 VBG pO2 VBG HCO3 VBG O2 Saturation VBG Base Excess Anion Gap 16 Estim Creat Clear Calc 54.0 Estimated GFR > 60 Random Glucose 152 H Lactic Acid Lactic Acid F/U @ 2Hr Lactic Acid F/U @ 4Hr 5.1 H* Calcium 9.0 Magnesium Total Bilirubin AST ALT Alkaline Phosphatase Troponin I High Sens B-Natriuretic Peptide Total Protein Albumin Respiratory Panel Stock See Note Adenovirus (Rapid PCR) Not Detected B.pert (TEM-PCR) Not Detected B.parapertussis DNA PCR Not Detected C. pneumoniae DNA (PCR) Not Detected Coronavirus OC43 (PCR) Not Detected Coronavirus HKU1 (PCR) Not Detected Coronavirus 229E (PCR) Not Detected Coronavirus NL63 (PCR) Not Detected Human Metapneumovir PCR Not Detected Influenza A (RT-PCR) Not Detected Influenza Type A (PCR) Influenza B (RT-PCR) Not Detected Influenza Type B (PCR) M. pneumoniae (PCR) Not Detected Parainfluenza 1 (PCR) Not Detected Parainfluenza 2 (PCR) Not Detected Parainfluenza 3 (PCR) Not Detected Parainfluenza 4 (PCR) Not Detected RSV (PCR) Not Detected RSV RNA Qual (PCR) Entero/Rhino (PCR) Not Detected SARS-CoV-2 RNA (RT-PCR) Not Detected Assessment and Plan (1) Acute and chronic respiratory failure: Status: Acute Plan 70-year-old male with history of COPD with chronic hypoxemic respiratory failure on 2 L supplemental O2 at baseline, PAD with claudication, AAA, reflux esophagitis admitted for acute COPD exacerbation with acute on chronic hypoxemic respiratory failure #COPD exacerbation with acute on chronic hypoxemic respiratory failure with viral sepsis Shortness of breath improving ,persistent mild tachypnea and tachycardia, lactic acid 2.2 due to albuterol use not due to severe sepsis -leukocytosis 13.1 bumped to 14 likely due to steroids -chest x-ray negative for focal consolidation. Negative for COVID-19, RSV, influenza and respiratory viral panel, hold antibiotics -gradually wean IV methylprednisolone , continue DuoNebs q.4h while awake. Albuterol p.r.n., guaifenesin p.r.n. -wean oxygen as tolerated on 2 L of supplemental oxygen at baseline #PAD/AAA -continue DAPT # reflux esophagitis -continue famotidine, simethicone # chronic normocytic anemia -H/H baseline, above transfusion threshold DVT prophylaxis-Lovenox Full code Patient requires continued inpatient hospitalization for management of acute COPD exacerbation with acute on chronic hypoxemic respiratory failure with viral sepsis ,on IV steroids, scheduled nebulizers, and close monitoring of vital signs/hemodynamics to monitor for preventive compensation. Quality Stroke Does the patient have a stroke diagnosis?: No VTE Prior VTE?: No VTE Risk Level:: Medical - moderate - high VTE Device Contraindication: Treatment Not Indicated VTE Drug Contraindication: N/A - Med Ordered
[2023-11-12] MEDS: Clopidogrel Bisulfate 75 MG TABLET PO (15:30)
[2023-11-12] MEDS: Enoxaparin Sodium 40 MG/0.4 ML SYRINGE SUBCUT (19:29)
[2023-11-12] MEDS: Tamsulosin HCL 0.4 MG CAPSULE PO (21:58)
[2023-11-13] MEDS: methylPREDNISolone Sod Succ 40 MG/ML VIAL IVPUSH ×2 (05:44→17:18)
--- NOTE | 2023-11-13 05:52 | PC.NURSE ---
Pt arrived from ED on stretcher appox [id number]. AOx3, able to make needs known. Requested bedside commode and urinal, both were placed bedside. Pt reports he has hearing aids but has left them at home this admission. He is currently on 2L O2 nc which is his baseline. Pt oriented to call sommer, room, and hospital, states he has been admitted here before and is familiar w/hospital. Pt stated his 2 months ago. He stated he will call before getting OOB for anything. Call sommer within reach, bed alarm on.
[2023-11-13 07:53] VITALS: BP 192/86; PULSE 99; RESP 20; TEMP 36.8; O2SAT 95
[2023-11-13 07:59] VITALS: BP 158/80; PULSE 90; RESP 20; O2SAT 93
[2023-11-13] MEDS: Albuterol/Iprat 2.5/0.5MG 3 ML AMPUL.NEB INHALE ×3 (07:59→19:58)
--- NOTE | 2023-11-13 08:14 | P.CDIM_ITS ---
PROVIDER RESPONSE TEXT: To clarify, the appropriate diagnosis supported by the clinical indicators: Acute QUERY TEXT: PHYSICIAN'S DOCUMENTATION REQUEST Date of Query: 11/13/2023 07:11 AM EDT Patient Name: Richardson Dao Admit Date: 11/11/2023 Dear Chi Bonilla MD, A review of the medical record indicates additional documentation may be needed. Please review below and update the documentation accordingly. Clinical Indicators: H&P 11/10 - Lactic acidosis 2.2 due to albuterol use, not severe sepsis. LA 2.2/6.1/5.1 Clarify which of the following accurately represents the acuity of the lactic acidosis: Possible options might include: Acute Chronic Other (explain) Clinically unable to determine (explain) Thank you, Claudette Clarke, CCS, CDIS Use of terms such as suspected, likely, concern for, or probable (associated with a specific diagnosi s that is being evaluated, monitored, or treated as if it exists) are acceptable and can be coded in the inpatient se tting, when documented at the time of discharge. Please use your independent medical judgment in providing your response. THIS QUERY IS PART OF THE PERMANENT MEDICAL RECORD
[2023-11-13] MEDS: Fluticasone/Umeclidinium/Vilanterol 100/62.5/25 BLST.W.DEV 1 PUFF INHALE (08:16)
[2023-11-13] MEDS: guaiFENesin 200 MG/10 ML 10 ML LIQUID PO ×2 (08:29→17:17)
[2023-11-13] MEDS: Clopidogrel Bisulfate 75 MG TABLET PO (08:29)
[2023-11-13] MEDS: Aspirin Enteric Coated 81 MG TABLET.DR PO (08:29)
[2023-11-13] MEDS: 0.9 % Sodium Chloride Flush 3 ML SYRINGE IVFLUSH ×3 (08:29→20:55)
[2023-11-13] MEDS: Lactulose 20 GM/30 ML SOLUTION PO (11:44)
[2023-11-13] MEDS: Omeprazole 20 MG CAPSULE.DR PO (11:44)
--- NOTE | 2023-11-13 12:13 | MHC.CM.PN ---
Per MD rounds patient not medically cleared for dc. CM will continue to follow.
--- NOTE | 2023-11-13 12:29 | HO.PM.IMPN ---
Subjective Subjective Date of Service: 11/13/23 Interval History: Complaining of shortness of breath, dry cough nonproductive also complaining of abdominal discomfort, had a small bowel movement on 11/10, tolerating diet, stable oxygenation, denies fever, no chills, no other acute issues tolerating updraft treatment. Review of Systems All other system are reviewed and are negative. Physical Exam Vital Signs: Vital Signs: Last Vital Signs Temp 98.3 F 11/13/23 07:53 Pulse 90 11/13/23 07:59 Resp 20 11/13/23 07:59 BP 158/80 H 11/13/23 07:59 Pulse Ox 95 11/13/23 07:53 O2 Del Method Nasal Cannula 11/13/23 07:53 O2 Flow Rate 2 11/13/23 07:53 Oxygen Flow Rate 3 11/11/23 14:58 BMI result Body Mass Index 22.5 Const: Other: General awake alert x3, in no acute distress. Neck no JVD. CVS regular rate rhythm, Respiratory lungs clear to auscultation, diminished breath sound, no respiratory distress, no wheeze, no rhonchi. Gastrointestinal abdomen soft, epigastric tenderness, nondistended ,, bowel sounds audible, no guarding , no rigidity. Extremities no edema. Neuro non focal Skin no rash Appropriate affect Objective Data Active Medications Acetaminophen (Acetaminophen 325 Mg Tablet) 650 mg PO Q6H PRN PRN Reason: Pain, Mild (Pain Scale 1-3), fever or headache Albuterol Sulfate (Albuterol Sulfate 90 Mcg 8 Gm Inhaler) 2 puff INHALE Q6H PRN PRN Reason: Shortness Of Breath Or Wheezing Albuterol/Ipratropium (Albuterol/Iprat 2.5/0.5mg 3 Ml Ampul.Neb) 3 ml INHALE RQ6H WHILE AWAKE [facility] Last Admin: 11/13/23 07:59 Dose: 3 ml Documented By: BRIDGER Aspirin (Aspirin Enteric Coated 81 Mg Tablet.) 81 mg PO DAILY [facility] Last Admin: 11/13/23 08:29 Dose: 81 mg Documented By: COTEMA Benzonatate (Benzonatate 100 Mg Capsule) 100 mg PO TID [facility] Calcium Carbonate (Calcium Carbonate 750 Mg Tab.Chew) 750 mg PO Q4H PRN PRN Reason: Heartburn Clopidogrel Bisulfate (Clopidogrel Bisulfate 75 Mg Tablet) 75 mg PO DAILY [facility] Last Admin: 11/13/23 08:29 Dose: 75 mg Documented By: JERAMY Enoxaparin Sodium (Enoxaparin Sodium 40 Mg/0.4 Ml Syringe) 40 mg SUBCUT Q24H [facility] Last Admin: 11/12/23 19:29 Dose: 40 mg Documented By: STEFANI Fluticasone/Umeclidinium/Vilanterol (Fluticasone/Umeclidinium/Vilanterol 100/62.5/25 Blst.W.Dev) 1 puff INHALE RDAILY [facility] Last Admin: 11/13/23 08:16 Dose: 1 puff Documented By: KUNAL Guaifenesin (Guaifenesin 200 Mg/10 Ml 10 Ml Liquid) 10 ml PO Q6H PRN PRN Reason: Cough Last Admin: 11/13/23 08:29 Dose: 10 ml Documented By: JERAMY Magnesium Hydroxide (Milk Of Magnesia 30 Ml Oral.Susp) 30 ml PO DAILY PRN PRN Reason: Constipation Melatonin (Melatonin 3 Mg Tablet) 6 mg PO BEDTIME PRN PRN Reason: Insomnia Methylprednisolone Sodium Succinate (Methylprednisolone Sod Succ 40 Mg/Ml Vial) 40 mg IVPUSH Q12H [facility] Last Admin: 11/13/23 05:44 Dose: 40 mg Documented By: LITZY Sodium Chloride (0.9 % Sodium Chloride Flush 3 Ml Syringe) 3 ml IVFLUSH QSHIFT [facility] Last Admin: 11/13/23 08:29 Dose: 3 ml Documented By: JERAMY Tamsulosin HCl (Tamsulosin Hcl 0.4 Mg Capsule) 0.4 mg PO BEDTIME [facility] Last Admin: 11/12/23 21:58 Dose: 0.4 mg Documented By: LITZY Labs 11/12/23 04:29 11/12/23 04:29 Assessment and Plan (1) Acute and chronic respiratory failure: Status: Acute Plan 70-year-old male with history of COPD with chronic hypoxemic respiratory failure on 2 L supplemental O2 at baseline, PAD with claudication, AAA, reflux esophagitis admitted for acute COPD exacerbation with acute on chronic hypoxemic respiratory failure #COPD exacerbation with acute on chronic hypoxemic respiratory failure with viral sepsis Shortness of breath improving , mild tachypnea and tachycardia, lactic acid 2.2 due to albuterol use not due to severe sepsis -leukocytosis likely due to steroids -chest x-ray negative for focal consolidation. Negative for COVID-19, RSV, influenza and respiratory viral panel, hold antibiotics -gradually wean IV methylprednisolone , continue DuoNebs q.4h while awake. Albuterol p.r.n., add scheduled cough medication, continue guaifenesin p.r.n. -wean oxygen as tolerated on 2 L of supplemental oxygen at baseline -case discussed with Dr. Geronimo, he recommend to keep outpatient appointment with him upon discharge on 11/13 -recommend out of bed and ambulation. # epigastric/abdominal pain likely due to reflux esophagitis/gastritis worse with steroids and constipation, will give Prilosec and stool softener follow clinical course. # acute lactic acidosis due to updraft treatment, no sepsis. #PAD/AAA -continue DAPT # reflux esophagitis -continue famotidine, simethicone # chronic normocytic anemia -H/H baseline, above transfusion threshold DVT prophylaxis-Lovenox Full code Patient requires continued inpatient hospitalization for management of acute COPD exacerbation with acute on chronic hypoxemic respiratory failure with viral sepsis ,on IV steroids, scheduled nebulizers, and close monitoring of vital signs/hemodynamics to monitor for preventive compensation. Quality Stroke Does the patient have a stroke diagnosis?: No VTE Prior VTE?: No VTE Risk Level:: Medical - moderate - high VTE Device Contraindication: Treatment Not Indicated VTE Drug Contraindication: N/A - Med Ordered
[2023-11-13 14:48] VITALS: PULSE 113; RESP 18; O2SAT 96
[2023-11-13 16:00] VITALS: BP 153/73; PULSE 100; RESP 18; TEMP 36.7; O2SAT 90
[2023-11-13] MEDS: Benzonatate 100 MG CAPSULE PO ×2 (17:17→20:55)
[2023-11-13] MEDS: Enoxaparin Sodium 40 MG/0.4 ML SYRINGE SUBCUT (17:18)
[2023-11-13 19:59] VITALS: PULSE 90; RESP 18; O2SAT 95
[2023-11-13] MEDS: Tamsulosin HCL 0.4 MG CAPSULE PO (20:55)
[2023-11-13 23:50] VITALS: BP 157/74; PULSE 92; RESP 18; TEMP 37.1; O2SAT 92
[2023-11-14] MEDS: methylPREDNISolone Sod Succ 40 MG/ML VIAL IVPUSH (05:52)
[2023-11-14 07:27] VITALS: BP 168/82; PULSE 84; RESP 16; TEMP 36.4; O2SAT 94
[2023-11-14] MEDS: Albuterol/Iprat 2.5/0.5MG 3 ML AMPUL.NEB INHALE (07:32)
[2023-11-14] MEDS: Fluticasone/Umeclidinium/Vilanterol 100/62.5/25 BLST.W.DEV 1 PUFF INHALE (07:32)
[2023-11-14 07:34] VITALS: PULSE 71; RESP 18; O2SAT 98
[2023-11-14] MEDS: Aspirin Enteric Coated 81 MG TABLET.DR PO (08:33)
[2023-11-14] MEDS: predniSONE 20 MG TABLET 40 MG PO (08:33)
[2023-11-14] MEDS: 0.9 % Sodium Chloride Flush 3 ML SYRINGE IVFLUSH (08:33)
[2023-11-14] MEDS: Benzonatate 100 MG CAPSULE PO (08:33)
[2023-11-14] MEDS: Clopidogrel Bisulfate 75 MG TABLET PO (08:33)
[2023-11-14] MEDS: Calcium Carbonate 750 MG TAB.CHEW PO (09:16)
[2023-11-14] MEDS: Famotidine 20 MG TABLET PO (10:44)
--- NOTE | 2023-11-14 11:56 | PM.DS ---
DS: Providers Provider Date of Service: 11/14/23 Date of admission: 11/11/23 18:37 Primary care physician: Go Zamora MD DS: Diagnosis Discharge Diagnosis (1) Acute and chronic respiratory failure: Status: Acute DS: Summary Hospital Course Hospital Course: Hospital course: Date of Service: 11/11/23 Attending physician on admission: Chi Bonilla Chief Complaint: sob, hypoxia 70-year-old male with history of COPD with chronic hypoxemic respiratory failure on 2 L supplemental O2 at baseline, PAD with claudication, AAA, reflux esophagitis presented to the ED via EMS from home after his son called EMS due to the patient feeling short of breath and dry cough which he reports started this morning. He lives at home with his son and niece. He denies any sick contacts. He states he felt warm but denies any fevers, chills, sore throat, congestion, abdominal pain, nausea, vomiting, diarrhea, productive cough, palpitations, lightheadedness, chest pain. Has been compliant with all of his inhalers. On arrival, EMS reports oximetry 84% and place patient on OxyMask at 5 L. Upon arrival to the ED, was 86% on room air and was placed on 4 L via OxyMask, oximetry now 93% on 3 L. he was initially tachycardic to 128 and tachypneic to 30. He has a leukocytosis of 13.1. Renal function baseline, electrolyte levels normal. Troponin 2.8, BNP 30. Negative for COVID, RSV flu. Chest x-ray negative for acute cardiopulmonary abnormality. He was given 125 mg IV Solu-Medrol per EMS as well as multiple DuoNebs and 2 g magnesium. Despite this, patient remains acutely hypoxic requiring 3 L supplemental O2 with diminished lung sounds in dyspnea. Hospital course: 70-year-old male with history of COPD with chronic hypoxemic respiratory failure on 2 L supplemental O2 at baseline, PAD with claudication, AAA, reflux esophagitis admitted for acute COPD exacerbation with acute on chronic hypoxemic respiratory failure #COPD exacerbation with acute on chronic hypoxemic respiratory failure with viral sepsis,chest x-ray negative for focal consolidation. Negative for COVID-19, RSV, influenza and respiratory viral panel, admitted to medical floor treated with IV steroids, scheduled and as needed updraft treatment, cough medication, patient responded well to above treatment, wean down to 2 L of baseline oxygen, since patient is hemodynamically stable he is being discharged home on tapering dose of steroids and recommended follow-up with Dr. Geronimo, noted to have epigastric and abdominal pain likely due to steroids treated with PPI with good affect. # acute lactic acidosis likely due to updraft treatment improved . # in regard to peripheral arterial disease and AE recommend to continue dual antiplatelet therapy. # reflux esophagitis continue famotidine, simethicone # chronic normocytic anemia noted to have stable H&H Time Attestation Discharge Coordination Time (in mins): 36 Quality: Safe Use of Opioids Does Pt have an Active Cancer Diagnosis on the Problem List?: No Quality: Stroke Does the patient have a stroke diagnosis?: No Physical Exam Vital Signs: Vital Signs: Last Vital Signs Temp 97.5 F 11/14/23 07:27 Pulse 71 11/14/23 07:34 Resp 18 11/14/23 07:34 BP 168/82 H 11/14/23 07:27 Pulse Ox 94 11/14/23 07:27 O2 Del Method Nasal Cannula 11/14/23 07:27 O2 Flow Rate 2 11/14/23 07:27 Oxygen Flow Rate 3 11/11/23 14:58 BMI result Body Mass Index 22.5 Const: Other: General awake alert x3, in no acute distress. Neck no JVD. CVS regular rate rhythm, Respiratory lungs clear to auscultation, diminished breath sound, no respiratory distress, no wheeze, no rhonchi. Gastrointestinal abdomen soft, epigastric tenderness, nondistended ,, bowel sounds audible, no guarding , no rigidity. Extremities no edema. Neuro non focal Skin no rash Appropriate affect Discharge Plan Discharge Anticipated Discharge Date/Time: 11/14/23 11:46 Patient Disposition: Home, Self-Care Discharge Diagnosis: Acute on chronic hypoxic respiratory failure Acute COPD exacerbation with viral sepsis Referrals: Go Zamora MD [Primary Care Provider] - 1 Week Discharge Medications: New prednisone 10 mg tablet 10 mg PO DIRECTED Qty: 30 0RF Rx Instructions: see taper instructions; 30 mg daily x3 days, 20 mg daily x3 days, 10 mg daily x3 days omeprazole 20 mg capsule,delayed release(DR/EC) 20 mg PO DAILY Qty: 90 0RF alum-mag hydroxide-simeth [Maalox Maximum Strength] 400-400-40 mg/5 mL suspension 10 ml PO TID PRN (Reason: heartburn) Qty: 3000 0RF Continued tamsulosin [Flomax] 0.4 mg capsule 0.4 mg PO BEDTIME Qty: 90 2RF ipratropium-albuterol 0.5 mg-3 mg(2.5 mg base)/3 mL solution for nebulization 3 ml inhalation QID PRN (Reason: for wheezing) 30 Days Qty: 180 2RF albuterol sulfate [Ventolin HFA] 90 mcg/actuation HFA aerosol inhaler 2 puff inhalation Q6H PRN (Reason: Shortness Of Breath Or Wheezing) aspirin 81 mg Tablet,Delayed Release (Dr/Ec) 81 mg PO DAILY (DME) nebulizers Misc See Rx Instructions .Route Qty: 1 0RF Rx Instructions: As directed clopidogrel 75 mg tablet 75 mg PO DAILY Trelegy Ellipta 100-62.5-25 mcg blister with device 1 ea inhalation DAILY Discharge Orders: Discharge Order (Routine); Ordered 11/14/23 Ordered By: Chi Bonilla Diet: Advance to usual diet Activity on Discharge: As tolerated Stand Alone Forms: Patient Portal Discharge page Print Language: Sinhala Care Plan Goals: Continue 2 L of home oxygen Continue tapering dose of prednisone, continue home inhalers use duoneb qid for next 4-5 days Take Prilosec 20 mg daily/use Tums and Maalox for heartburn Health Concerns: Reflux esophagitis Continue all home medications Plan of Treatment: Outpatient follow-up with automatic operator Dr. Geronimo as previously planned Assessment: As above Patient Instructions: COPD (Chronic Obstructive Pulmonary Disease) (DC), Energy Conservation Techniques (DC) Discharge Date/Time: 11/14/23 13:10
--- NOTE | 2023-11-14 12:18 | MHC.CM.PN ---
Per MD patient medically cleared for dc home self care. Son will provide transport. RN aware.
== END 2023-11-14 13:10 | disposition home or self-care (01) | DRG 871 ==
LOC: HO.ED 17:06 → HO.EDOVER 18:48 → HO.S3 11-12 19:57
PROVIDERS: Physician Assistant Medical; Student in an Organized Health Care Education/Training Program; Admitting Provider Physician Assistant; Emergency Provider Emergency Medicine; PCP Internal Medicine; Visit Provider Hospitalist
DX: A41.89 Other specified sepsis (principal); J96.21 Acute and chronic respiratory failure with hypoxia; E87.21 Acute metabolic acidosis; J44.1 Chronic obstructive pulmonary disease with (acute) exacerbation; K59.00 Constipation, unspecified; D64.9 Anemia, unspecified; I71.40 Abdominal aortic aneurysm, without rupture, unspecified; I70.212 Atherosclerosis of native arteries of extremities with intermittent claudication, left leg; K21.00 Gastro-esophageal reflux disease with esophagitis, without bleeding; Z20.822 Contact with and (suspected) exposure to COVID-19; Z99.81 Dependence on supplemental oxygen; Z79.02 Long term (current) use of antithrombotics/antiplatelets; Z79.82 Long term (current) use of aspirin; Z79.899 Other long term (current) drug therapy
CPT/HCPCS: 0241U; 36415; 71045; 80048; 80053; 82803; 83605; 83735; 83880; 84484; 85025; 87633; 93005; 94640; 99285; J1650; J2919; J3475; J7120

== ENCOUNTER → 2023-11-11 18:37 | Outpatient (BNV) | payer MEDICARE, MEDICAID, SELFPAY | PROVIDERS: Admitting Provider Physician Assistant; Emergency Provider Emergency Medicine; Visit Provider Physician Assistant | DX: J96.21 Acute and chronic respiratory failure with hypoxia (principal) | CPT/HCPCS: 99223; 99232; 99233; 99238 ==

== ENCOUNTER 2023-11-14 13:15 | Outpatient (AMB) | payer MEDICARE, MEDICAID, SELFPAY ==
[2023-11-14 13:22] VITALS: BP 144/90; PULSE 103; O2SAT 94
--- NOTE | 2023-11-14 13:22 | MHC.OFFVIS ---
Vital Signs 11/14/23 13:22 Height 5 ft 9 in BP 144/90 H Blood Pressure Location Lt brachial Position Sitting Pulse 103 H Pulse Source Pulse Oximeter Pulse Oximetry (%) 94 Oxygen Delivery Method Nasal Cannula Oxygen Flow Rate 2 Intake Visit Reasons: Emphysema Intake Note: pt is here for follow up Crown Perforator Operator Required: No Allergies No Known Allergies Allergy (Verified 11/14/23 13:25) HPI HPI Emphysema: Details: DO IS 78 YEARS OLD GENTLEMAN WHO LIVES ALONE. HIS BUT A MONTH AGO. HE ENDED IN THE HOSPITAL A FEW DAYS AGO AND HAS BEEN TREATED FOR ACUTE EXACERBATION OF COPD. THERE WAS NO PNEUMONIA AND HIS VIRAL STUDIES WERE ALL NEGATIVE. HE HAS BEEN TREATED WITH IV SOLU-MEDROL FOLLOWED BY PREDNISONE TAPER. HE NEEDS O2 CHECKED UP TO 3 L/MINUTE. TODAY HE IS DISCHARGED FROM THE HOSPITAL BUT CIARA INSISTED ON COMING DOWN TO SEE ME, BEFORE HE GOES HOME. CIARA HAS PAST HISTORY OF SMOKING BUT DOES NOT SMOKE ANYMORE FOR THE LAST MANY YEARS. [facility] Medical History PVD (peripheral vascular disease) with claudication Elevated cholesterol Personal history of COVID-19 BRANDAN (generalized anxiety disorder) Oxygen dependent Urinary retention Abdominal pain Respiratory failure with hypoxia COPD (chronic obstructive pulmonary disease) Mucus plugging of bronchi PAD (peripheral artery disease) AAA (abdominal aortic aneurysm) without rupture Emphysema lung Surgical History Hernia, ventral (04/19/23) Hx of hand surgery (~1984) Social History Household Members: Family Housing: House Are you a primary patient care provider to a significant other at home: No Do you presently have visiting nurse or other home services: No Alcohol intake: former Patient Tobacco Use Status: Former Tobacco user Tobacco use type: Cigarette Second Hand Smoke Exposure: No service: No Review of Systems Const All systems reviewed & are unremarkable except as noted in HPI and below Eyes Reports no additional complaints ENT Reports no additional complaints Card Denies chest pain, Denies irregular heart rhythm, Denies leg edema and Reports dyspnea on exertion Resp Reports as per HPI and Reports dyspnea on exertion GI Reports constipation and Reports dyspepsia Reports no additional complaints Musc Reports other (GENERAL WEAKNESS) Skin/Breast Reports system reviewed and no additional complaints, except as documented Neuro Reports no additional complaints Psych Reports no additional complaints Physical Exam Vital Signs: Last Vital Signs Pulse 103 H 11/14/23 13:22 BP 144/90 H 11/14/23 13:22 Pulse Ox 94 11/14/23 13:22 Oxygen Delivery Method Nasal Cannula 11/14/23 13:22 Oxygen Flow Rate 2 11/14/23 13:22 Last Vital Signs Temp 97.8 F 01/30/23 08:38 Pulse 109 H 01/30/23 08:38 Resp 24 H 01/30/23 08:38 BP 131/68 01/30/23 08:38 Pulse Ox 94 01/30/23 08:38 O2 Del Method Nasal Cannula 01/30/23 08:38 O2 Flow Rate 3 01/30/23 08:38 BMI result Body Mass Index 23.9 Const General: comfortable (Except for shortness of breath during conversation), no acute distress, alert and awake Orientation/consciousness: patient oriented x3 HEENT Head: Yes normal to inspection General nose exam: No nasal polyps present and No nasal discharge present Face and sinus: Yes sinuses nontender Mouth: oropharynx normal Teeth and gingiva: edentulous Throat: Yes posterior oropharynx normal Eyes General: appearance normal, both eyes and all related structures Neck Neck: Yes normal visual inspection, Yes no lymphadenopathy, Yes trachea midline and Yes no JVD Thyroid: Thyroid normal Chest Chest palpation & inspection: normal inspection of the chest, normal palpation of entire chest wall and no tenderness Resp Other: PERCUSSION NOTE IS RESONANT, BREATH SOUNDS ARE VERY DISTANT, ESPECIALLY OVER THE RIGHT LOWER LOBE AND LEFT BASE, WITH PROLONGED EXPIRATORY PHASE. NO WHEEZES. A FEW INSPIRATORY CREPS OVER THE RIGHT BASE. Cardio Palpation: normal PMI Rate: regular rate Rhythm: regular rhythm Heart sounds: no gallops and no murmurs GI Palpation (GI): Soft to palpation, nontender, No hepatosplenomegaly present and no masses Auscultation: normal bowel sounds Back/Spine/Pelvis Thoracic/Lumbar Spine: thoracic and lumbar spine normal to inspection and thoraco-lumbar ROM limited Skin General skin exam: no rashes or lesions noted Neuro General: patient oriented x3 and no focal motor deficits Cranial nerves: Yes CN's II-XII intact bilaterally Extrem General: Yes normal to inspection, Yes no clubbing, cyanosis or edema and Yes no calf tenderness Psych Other: POOR GENERAL HYGIENE Appearance: disheveled Mental Status: mental status grossly normal Speech and movement: Normal speech and movement present Results Reviewed Results Reviewed: CHEST X-RAY AT [facility] AND THE HOSPITAL COURSE IS REVIEWED. Assessment & Plan Assessment & Plan (1) COPD (chronic obstructive pulmonary disease): Comment: PATIENT HAS ADVANCED CHRONIC OBSTRUCTIVE PULMONARY DISEASE. HE IS PRONE TO HAVE RECURRENT RESPIRATORY INFECTIONS. HAS BEEN TREATED FOR AN ACUTE EXACERBATION AND IMPROVED. Code(s): J44.9 - Chronic obstructive pulmonary disease, unspecified Category: Medical Plan: I REASSURED HIM THAT HE HAS BEEN TREATED APPROPRIATELY IN THE HOSPITAL. ADVISED TO CONTINUE THE MEDICAL REGIMEN PRESCRIBED. PREDNISONE 10 MG TABLETS AND TAKE DIRECTED . DUONEB UPDRAFTS Q 6 HO.URS P.R.N. WHEN AT HOME VENTOLIN INHALER 2 PUFFS Q 4-6 HOURS P.R.N. WHEN OUTDOORS. CONTINUE TRELEGY ELLIPTA 1 INHALATION DAILY (2) Respiratory failure with hypoxia: Comment: PATIENT HAS HYPOXEMIA, BEING TREATED WITH OXYGEN SUPPLEMENTATION Code(s): J96.91 - Respiratory failure, unspecified with hypoxia Category: Medical Plan: PATIENT HAS BEEN O2 DEPENDENT, IN THE HOSPITAL HE NEEDED O2 3 L/MINUTE, WHICH HE WILL CONTINUE AT HOME. (3) Mucus plugging of bronchi: Comment: PER CT SCAN ON 01/29/23, HE WAS FOUND TO HAVE MUCUS PLUGGING OF THE BRONCHI IN THE LOWER LOBES ESPECIALLY IN RIGHT LOWER LOBE. HE IS A HIGH RISK FOR BRONCHOSCOPY. He is successfully expectorating mucus after using the DuoNeb updrafts. Code(s): T17.500A - Unspecified foreign body in bronchus causing asphyxiation, initial encounter Category: Medical Plan: CONTINUE TO USE DUONEB UPDRAFTS Q 6 HOURS WHILE AWAKE. Coding Level of Care Code Est Pt Level 3 (25981) Diagnoses COPD (chronic obstructive pulmonary disease) J44.9 Respiratory failure with hypoxia J96.91 Mucus plugging of bronchi T17.500A
== END 2023-11-14 14:04 | disposition home or self-care (01) ==
PROVIDERS: PCP Internal Medicine; Visit Provider Internal Medicine
DX: J44.9 Chronic obstructive pulmonary disease, unspecified (principal); J96.91 Respiratory failure, unspecified with hypoxia; T17.500A Unspecified foreign body in bronchus causing asphyxiation, initial encounter
CPT/HCPCS: 99213

== ENCOUNTER → 2023-11-14 13:15 | Outpatient (BNVA) | payer MEDICARE, SELFPAY | PROVIDERS: PCP Internal Medicine; Visit Provider Internal Medicine | DX: J43.9 Emphysema, unspecified (principal); J96.91 Respiratory failure, unspecified with hypoxia; T17.500A Unspecified foreign body in bronchus causing asphyxiation, initial encounter; X58.XXXA Exposure to other specified factors, initial encounter; Z87.891 Personal history of nicotine dependence; Z99.81 Dependence on supplemental oxygen | CPT/HCPCS: 99212 ==

== ENCOUNTER 2023-12-05 13:56 | Outpatient (AMB) | payer MEDICARE, MEDICAID, SELFPAY ==
--- NOTE | 2023-12-05 14:12 | MHC.OFFVIS ---
Vital Signs 12/05/23 14:13 Height 5 ft 9 in Weight 151 lb 0.266 oz BMI 22.3 BP 122/78 Blood Pressure Location Lt brachial Position Sitting Pulse 91 Pulse Source Pulse Oximeter Pulse Oximetry (%) 94 Oxygen Delivery Method Nasal Cannula Oxygen Flow Rate 2 Intake Visit Reasons: copd Intake Note: pt is here for follow up and states he has a heavy cough, very bad in am, using cough med at night, but he needs help with the cough, Insulation Board Calender Operator Required: No Allergies No Known Allergies Allergy (Verified 12/05/23 14:16) Do you need a note to return to daycare/school/sports/work: No HPI HPI copd: Details: THIS 78 YEARS OLD GENTLEMAN WITH ADVANCED CASE OF CHRONIC OBSTRUCTIVE PULMONARY DISEASE, WHO WAS RECENTLY TREATED FOR ACUTE EXACERBATION, AND WAS SEEN BY ME ONLY A FEW WEEKS AGO , COMES TODAY FOR SHORT-TERM FOLLOW-UP. HE HAS COMPLETED THE COURSE OF PREDNISONE. HE IS USING OXYGEN. 24 HOURS A DAY HE CONTINUES TO USE TRELEGY ELLIPTA ONCE A DAY. AND IPRATROPIUM-ALBUTEROL SOLUTION IN THE NEBULIZER 4 TIMES A DAY. HE FEELS BETTER BUT HIS MAIN COMPLAINT IS COUGH, AND HE IS NOT ABLE TO GET RID OF MUCUS. HE HAS NO FEVER OR CHILLS. HE REMAINS WEAK IN GENERAL AND HE WAS BROUGHT TO THE OFFICE IN WHEELCHAIR. COUNT INCLUDES THE [facility] Medical History PVD (peripheral vascular disease) with claudication Elevated cholesterol Personal history of COVID-19 BRANDAN (generalized anxiety disorder) Oxygen dependent Urinary retention Abdominal pain Respiratory failure with hypoxia COPD (chronic obstructive pulmonary disease) Mucus plugging of bronchi PAD (peripheral artery disease) AAA (abdominal aortic aneurysm) without rupture Emphysema lung Surgical History Hernia, ventral (04/19/23) Hx of hand surgery (~1984) Social History Household Members: Family Housing: House Are you a primary furnace caretaker to a significant other at home: No Do you presently have visiting nurse or other home services: No Alcohol intake: former Patient Tobacco Use Status: Former Tobacco user Tobacco use type: Cigarette Second Hand Smoke Exposure: No service: No Review of Systems Const All systems reviewed & are unremarkable except as noted in HPI and below Eyes Reports no additional complaints ENT Reports no additional complaints Card Denies chest pain, Denies irregular heart rhythm, Denies leg edema and Reports dyspnea on exertion Resp Reports as per HPI and Reports dyspnea on exertion GI Reports constipation and Reports dyspepsia Reports no additional complaints Musc Reports other (GENERAL WEAKNESS) Skin/Breast Reports system reviewed and no additional complaints, except as documented Neuro Reports no additional complaints Psych Reports no additional complaints Physical Exam Vital Signs: Last Vital Signs Pulse 91 12/05/23 14:13 BP 122/78 12/05/23 14:13 Pulse Ox 94 12/05/23 14:13 Oxygen Delivery Method Nasal Cannula 12/05/23 14:13 Oxygen Flow Rate 2 12/05/23 14:13 BMI result Body Mass Index 22.3 Last Vital Signs Temp 97.8 F 01/30/23 08:38 Pulse 109 H 01/30/23 08:38 Resp 24 H 01/30/23 08:38 BP 131/68 01/30/23 08:38 Pulse Ox 94 01/30/23 08:38 O2 Del Method Nasal Cannula 01/30/23 08:38 O2 Flow Rate 3 01/30/23 08:38 BMI result Body Mass Index 23.9 Const General: comfortable (Except for shortness of breath during conversation), no acute distress, alert and awake Orientation/consciousness: patient oriented x3 HEENT Head: Yes normal to inspection General nose exam: No nasal polyps present and No nasal discharge present Face and sinus: Yes sinuses nontender Mouth: oropharynx normal (I DID NOT SEE ANY EXUDATES OR ANY EXCESSIVE MUCUS . ) Teeth and gingiva: edentulous Throat: Yes posterior oropharynx normal Eyes General: appearance normal, both eyes and all related structures Neck Neck: Yes normal visual inspection, Yes no lymphadenopathy, Yes trachea midline and Yes no JVD Thyroid: Thyroid normal Chest Chest palpation & inspection: normal inspection of the chest, normal palpation of entire chest wall and no tenderness Resp Other: PERCUSSION NOTE IS RESONANT, BREATH SOUNDS ARE VERY DISTANT, BUT EQUAL ON BOTH SIDES. NO WHEEZES. A FEW INSPIRATORY CREPS OVER THE RIGHT BASE. Cardio Palpation: normal PMI Rate: regular rate Rhythm: regular rhythm Heart sounds: no gallops and no murmurs GI Palpation (GI): Soft to palpation, nontender, No hepatosplenomegaly present and no masses Auscultation: normal bowel sounds Back/Spine/Pelvis Thoracic/Lumbar Spine: thoracic and lumbar spine normal to inspection and thoraco-lumbar ROM limited Skin General skin exam: no rashes or lesions noted Neuro General: patient oriented x3 and no focal motor deficits Cranial nerves: Yes CN's II-XII intact bilaterally Extrem General: Yes normal to inspection, Yes no clubbing, cyanosis or edema and Yes no calf tenderness Psych Other: POOR GENERAL HYGIENE Appearance: disheveled Mental Status: mental status grossly normal Speech and movement: Normal speech and movement present Assessment & Plan Assessment & Plan (1) COPD (chronic obstructive pulmonary disease): Comment: PATIENT HAS ADVANCED CHRONIC OBSTRUCTIVE PULMONARY DISEASE. HE IS PRONE TO HAVE RECURRENT RESPIRATORY INFECTIONS. HAS BEEN TREATED FOR AN ACUTE EXACERBATION AND IMPROVED. HAS RECOVERED SLOWLY. AT THIS TIME HIS MAIN COMPLAINT IS BOUTS OF COUGH IN THE MORNING AND HE HAS DIFFICULTY IN BRINGING UP MUCUS. Code(s): J44.9 - Chronic obstructive pulmonary disease, unspecified Category: Medical Plan: CONTINUE TRELEGY ELLIPTA 1 INHALATION DAILY. IPRATROPIUM- ALBUTEROL SOLUTION IN THE NEBULIZER USE Q 6 HOURS WHILE AWAKE. MAY USE COUGH DROPS TO CONTROL THE COUGH. USE ALL PRECAUTIONS WHEN EATING SO THAT THERE IS NO CHANCE OF ASPIRATION. (2) Respiratory failure with hypoxia: Comment: PATIENT HAS HYPOXEMIA, BEING TREATED WITH OXYGEN SUPPLEMENTATION Code(s): J96.91 - Respiratory failure, unspecified with hypoxia Category: Medical Plan: CONTINUE O2 2 L/MINUTE AT NIGHT AND DURING THE DAY (3) Mucus plugging of bronchi: Comment: PER CT SCAN ON 01/29/23, HE WAS FOUND TO HAVE MUCUS PLUGGING OF THE BRONCHI IN THE LOWER LOBES ESPECIALLY IN RIGHT LOWER LOBE. HE IS A HIGH RISK FOR BRONCHOSCOPY. He is successfully expectorating mucus after using the DuoNeb updrafts. Code(s): T17.500A - Unspecified foreign body in bronchus causing asphyxiation, initial encounter Category: Medical Plan: ADVISED TO CONTINUE USING TRELEGY ELLIPTA AND DUONEB UPDRAFTS NOTED ABOVE . MAY USE OTC COUGH SYRUP 2 OR 3 TIMES A DAY. MAY KEEP COUGH DROPS IN THE THROAT Coding Level of Care Code Est Pt Level 3 (35474) Diagnoses COPD (chronic obstructive pulmonary disease) J44.9 Respiratory failure with hypoxia J96.91 Mucus plugging of bronchi T17.500A
[2023-12-05 14:13] VITALS: BP 122/78; PULSE 91; O2SAT 94; BMI 22.3
== END 2023-12-05 14:45 | disposition home or self-care (01) ==
PROVIDERS: PCP Internal Medicine; Visit Provider Internal Medicine
DX: J44.9 Chronic obstructive pulmonary disease, unspecified (principal); J96.91 Respiratory failure, unspecified with hypoxia; T17.500A Unspecified foreign body in bronchus causing asphyxiation, initial encounter
CPT/HCPCS: 99213

== ENCOUNTER → 2023-12-05 13:56 | Outpatient (BNVA) | payer MEDICARE, MEDICAID, SELFPAY | PROVIDERS: PCP Internal Medicine; Visit Provider Internal Medicine | DX: J96.11 Chronic respiratory failure with hypoxia (principal); J44.9 Chronic obstructive pulmonary disease, unspecified; T17.590A Other foreign object in bronchus causing asphyxiation, initial encounter; Z99.81 Dependence on supplemental oxygen | CPT/HCPCS: 99212 ==

== ENCOUNTER 2024-01-20 13:19 | Outpatient (AMB) | payer MEDICARE, SELFPAY ==
[2024-01-20 13:23] VITALS: BP 150/76; PULSE 88; O2SAT 93; BMI 22.3
--- NOTE | 2024-01-20 13:23 | A.OFFVIS_ITS ---
Vital Signs 01/20/24 13:23 Height 5 ft 9 in Weight 151 lb 3.794 oz BMI 22.3 BP 150/76 H Blood Pressure Location Rt brachial Position Sitting Pulse 88 Pulse Source Pulse Oximeter Pulse Oximetry (%) 93 Oxygen Delivery Method Room Air Intake Visit Reasons: 3 month follow up PT N/S last Appt Intake Note: Relevant Flags or Indicators ? Requires Infantry Operations Specialist? N Richardson presents in office today for a scheduled 6 mos FUV. Pt was originally scheduled for 3 mos FUV but n/s their last visit. CC; No recent labs, or med orders. Pt has had NM study since their last visit (07/2023)? Relevant GI Sx as reported per pt? Abdominal Pain * Pt reports intermittent LLQ pain which radiates into the groin. Pt states that this is worse while eating but goes away rather quickly. ? Hx of any recent surgeries? None Infantry Operations Specialist Required: No Accompanied by: Family/Other Allergies No Known Allergies Allergy (Verified 01/20/24 14:03) HPI HPI 3 month follow up PT N/S last Appt: Details: LAST VISIT Hernia of abdominal wall Rectus diastasis IBS (irritable bowel syndrome) RUQ abdominal pain Cholelithiasis Plan Patient will continue to avoid dietary triggers. Will send him for HIDA scan. Continue MiraLax daily. Left upper quadrant pain most likely related to patient is wearing tight clothing with belt. Pain is right underneath the ribcage. Patient was encouraged to wear loose clothing like sweat pants. I will see him in 3 months, sooner on as needed basis. Patient is agreeable to this plan and verbalizes understanding of instructions. He was given the opportunity to ask questions and all questions answered. ? Thank you for allowing me to participate in his care Orders Orders NM gastric emptying study Today R10.11 TODAY'S VISIT Patient is here today for follow-up. Patient missed his last appointment as he was dealing with his passing and also he was not feeling very well. Patient has been admitted with upper respiratory infections in acute on chronic COPD. He is on continuous O2. Accompanied by his son. Patient reports that he is doing well except for reporting left lower quadrant pain. Patient reports that the pain is not provoked. Eating, bowel movements does not cause the pain worse. Patient reports that he is moving his bowels every day without any issues. Patient denies any nausea or vomiting. Denies melena, hematochezia, unintentional weight loss or ribbon like stools. Patient reports that when he has this pain and coughs few times sometimes the pain goes away, however sometimes he will have cramping when he coughs. Last visit patient was reporting right upper quadrant discomfort. Patient had HIDA scan that showed biliary dyskinesia. However patient does report no longer having right upper quadrant pain. Patient denies any nausea or vomiting. Denies any postprandial abdominal pain or bloating. [facility] Medical History PVD (peripheral vascular disease) with claudication Elevated cholesterol Personal history of COVID-19 BRANDAN (generalized anxiety disorder) Oxygen dependent Urinary retention Abdominal pain Respiratory failure with hypoxia COPD (chronic obstructive pulmonary disease) Mucus plugging of bronchi PAD (peripheral artery disease) AAA (abdominal aortic aneurysm) without rupture Emphysema lung Surgical History Hernia, ventral (04/19/23) Hx of hand surgery (~1984) Social History Household Members: Family Housing: House Are you a primary palliative care nurse to a significant other at home: No Do you presently have visiting nurse or other home services: No Alcohol intake: former Patient Tobacco Use Status: Former Tobacco user Tobacco use type: Cigarette Second Hand Smoke Exposure: No service: No Review of Systems Const Denies weight gain and Denies weight loss ENT Reports no additional complaints, Denies dysphagia and Denies odynophagia Card Reports no additional complaints Resp Reports no additional complaints GI Reports abdominal pain (Left lower quadrant), Denies belching, Denies melena, Denies bloating, Denies change in bowel habits, Denies dysphagia, Denies excessive flatus, Denies dyspepsia, Denies heartburn, Denies diarrhea, Denies loose stools, Denies nausea, Denies odynophagia and Denies vomiting Reports no additional complaints Musc Reports no additional complaints Neuro Reports no additional complaints Psych Reports no additional complaints Endo Reports no additional complaints Physical Exam Vital Signs: Last Vital Signs Pulse 88 01/20/24 13:23 BP 150/76 H 01/20/24 13:23 Pulse Ox 93 01/20/24 13:23 Oxygen Delivery Method Room Air 01/20/24 13:23 BMI result Body Mass Index 22.3 Const General: no acute distress Orientation/consciousness: patient oriented x3 Resp Other: Portable oxygen, on O2 via nasal cannula Effort & Inspection: able to speak in complete sentences, no tracheal deviation and symmetric chest movement Auscultation: clear to auscultation bilaterally Cardio Rate: regular rate GI Inspection: No distended Palpation (GI): Soft to palpation, not firm, nontender, No hepatosplenomegaly present and Hernia present (Left inguinal hernia) Auscultation: normal bowel sounds General: Yes no CVA tenderness Back/Spine/Pelvis Back: no CVA tenderness Skin General skin exam: elasticity normal, turgor normal and dry skin Neuro General: patient oriented x3 Psych Appearance: grossly normal Mental Status: mental status grossly normal Results Reviewed Results Reviewed: HIDA scan FINDINGS: There is good concentration of activity in the liver by 5 minutes post injection. Biliary activity is visualized by 15 minutes. The gallbladder is well visualized by 35 minutes. Small bowel is well visualized by 40 minutes. At 60 minutes post radiopharmaceutical injection, a 30-minute infusion of 1.4 micrograms Sincalide was then begun and an additional 40 minutes of images were obtained. There is poor emptying of the gallbladder. By the end of the study there is good clearance of activity from the liver and visualization of diffuse small bowel activity. The calculated gallbladder ejection fraction is 16% (Normal range of gallbladder ejection fraction is between 35-80%; GBEF <35% is considered biliary hypokinesia and >80% is considered biliary hyperkinesia; Ref. #1-Clinical Journal of Gastroenterology (2020) 14:1308?1317; Ref.#2-[email or web address]). NM/NM hepatobiliary w pharm IMPRESSION: Visualization of the gallbladder is evidence of a patent cystic duct and strong evidence against the diagnosis of acute cholecystitis. The common bile duct is patent. Gallbladder emptying and ejection fraction are abnormal. Liver function appears normal. Assessment & Plan Assessment & Plan (1) Left inguinal hernia: Code(s): K40.90 - Unilateral inguinal hernia, without obstruction or gangrene, not specified as recurrent Category: Surgical (2) Dyskinesia of gallbladder: Code(s): K82.8 - Other specified diseases of gallbladder Plan Significant left lower quadrant tenderness, most likely inguinal hernia. Spoke to Dr. Stern who was his surgeon and repaired his umbilical hernia earlier this year. Patient will be seeing the surgeon today to discuss possible surgery. Patient reports that he is moving his bowels daily without any issues. He will follow-up in this office on as-needed basis. Biliary dyskinesia found on HIDA scan, however patient reports no pain since last time seen. He will call our office if he will have right upper quadrant pain or any other GI concerning symptoms. He is agreeable to current plan of care and verbalizes understanding of instructions. He was given the opportunity to ask questions and all questions answered. Thank you for allowing me to participate in his care Coding Level of Care Code Est Pt Level 4 (12980) Diagnoses Left inguinal hernia K40.90 Dyskinesia of gallbladder K82.8 Time Spent (min) 35 Comment 20 minutes spent with patient and additional 15 minutes spent reviewing his records
== END 2024-01-20 14:18 | disposition home or self-care (01) ==
LOC: HO.HGI 13:19
PROVIDERS: PCP Internal Medicine; Visit Provider Nurse Practitioner Family
DX: K40.90 Unilateral inguinal hernia, without obstruction or gangrene, not specified as recurrent (principal); K82.8 Other specified diseases of gallbladder
CPT/HCPCS: 99214

== ENCOUNTER → 2024-01-20 13:19 | Outpatient (BNVA) | payer MEDICARE, SELFPAY | PROVIDERS: PCP Internal Medicine; Visit Provider Nurse Practitioner Family | DX: K40.90 Unilateral inguinal hernia, without obstruction or gangrene, not specified as recurrent (principal); K58.9 Irritable bowel syndrome, unspecified; K82.8 Other specified diseases of gallbladder; J44.9 Chronic obstructive pulmonary disease, unspecified; Z99.81 Dependence on supplemental oxygen | CPT/HCPCS: 99212 ==

== ENCOUNTER 2024-01-20 14:18 | Outpatient (AMB) | payer MEDICARE, SELFPAY ==
[2024-01-20 14:02] VITALS: BP 150/76; PULSE 88; BMI 23.8
--- NOTE | 2024-01-20 14:02 | MHC.OFFVIS ---
Vital Signs 01/20/24 14:02 Height 5 ft 9 in Weight 161 lb BMI 23.8 BP 150/76 H Blood Pressure Location Rt brachial Position Sitting Pulse 88 Intake Visit Reasons: LIH Intake Note: Patient referred by Cecile TOVAR for Left inguinal hernia. Patient c/o: bulging, pain. Electrician Telephone Required: No Accompanied by: Son Allergies No Known Allergies Allergy (Verified 01/20/24 14:03) HPI Comments Details: Patient presents with a some periods well known to me. He was seen in GI clinic earlier today now presents here for evaluation of symptomatic left inguinal hernia. I saw the patient several months ago for symptomatic umbilical hernia which was uneventfully repaired. Patient now presents with a several week history of symptomatic left inguinal hernia which is increasing in size, become more symptomatic. He would like to have this repaired. Patient has significant comorbidities. His original umbilical hernia was done under local with sedation and he did very well with this. Patient otherwise is tolerating a diet. Having regular bowel habits. He has advanced COPD and requires home O2. Chart was reviewed and patient evaluated [facility] Medical History PVD (peripheral vascular disease) with claudication Elevated cholesterol Personal history of COVID-19 BRANDAN (generalized anxiety disorder) Oxygen dependent Urinary retention Abdominal pain Respiratory failure with hypoxia COPD (chronic obstructive pulmonary disease) Mucus plugging of bronchi PAD (peripheral artery disease) AAA (abdominal aortic aneurysm) without rupture Emphysema lung Surgical History Hernia, ventral (04/19/23) Hx of hand surgery (~1984) Social History Household Members: Family Housing: House Are you a primary critical care specialist to a significant other at home: No Do you presently have visiting nurse or other home services: No Alcohol intake: former Patient Tobacco Use Status: Former Tobacco user Tobacco use type: Cigarette Second Hand Smoke Exposure: No service: No Physical Exam Vital Signs: Last Vital Signs Pulse 88 01/20/24 14:02 BP 150/76 H 01/20/24 14:02 BMI result Body Mass Index 23.8 Const Other: Elderly frail male with home O2 oxygen nasal cannula on Chest Other: Chest breath sounds bilaterally consistent with COPD. HS 1 in 2 GI Other: Patient was examined both supine and standing with Valsalva. Right groin negative. Genitalia within normal limits. Moderate size reducible left inguinal hernia. Abdomen is scaphoid otherwise benign. Prior umbilical hernia site well healed. Assessment & Plan Assessment & Plan (1) Left inguinal hernia: Code(s): K40.90 - Unilateral inguinal hernia, without obstruction or gangrene, not specified as recurrent Category: Surgical Plan Risks, benefits, and alternatives of open left inguinal hernia repair with mesh reviewed the patient and included but not limited to bleeding, infection, recurrence, numbness, pain, scarring and the patient wished to proceed. Very similar as noted above to his original umbilical hernia repair, this will be done under MAC and local anesthesia. Arrangements were made with the son today was convenient for the patient. Patient would like to proceed. All questions answered Coding Level of Care Code Est Pt Level 5 (64970) Diagnoses Left inguinal hernia K40.90
== END 2024-01-20 14:18 | disposition home or self-care (01) ==
LOC: HO.HGS 14:18
PROVIDERS: PCP Internal Medicine; Referring Provider Nurse Practitioner Family; Visit Provider Surgery
DX: K40.90 Unilateral inguinal hernia, without obstruction or gangrene, not specified as recurrent (principal)
CPT/HCPCS: 99214

== ENCOUNTER 2024-02-04 09:50 | Outpatient (AMB) | payer MEDICARE, MEDICAID, SELFPAY ==
--- NOTE | 2024-02-04 09:51 | A.OFFVIS_ITS ---
Vital Signs 02/04/24 09:52 Height 5 ft 9 in Weight 151 lb BMI 22.3 BP 142/66 H Blood Pressure Location Rt brachial Position Sitting Respiration 16 Pulse 96 Pulse Source Pulse Oximeter Pulse Oximetry (%) 92 Oxygen Delivery Method Nasal Cannula Intake Visit Reasons: copd/pulm clearance hernia repair Allergies No Known Allergies Allergy (Verified 02/04/24 10:08) Medication List - Last Reconciled 02/04/24 by Valerie Geronimo MD albuterol sulfate 90 mcg/actuation (Ventolin HFA) 2 puffs inhalation Q6H PRN alum-mag hydroxide-simeth 400-400-40 mg/5 mL (Maalox Maximum Strength) 10 mL PO TID PRN aspirin 81 mg PO DAILY clopidogrel 75 mg PO DAILY qiwbqdocghz-hkwekiqam-zffkmqci 200-62.5-25 mcg (Trelegy Ellipta) 1 ea inhalation DAILY ipratropium-albuterol 0.5 mg-3 mg(2.5 mg base)/3 mL 3 mL inhalation QID PRN nebulizers As directed omeprazole 20 mg PO DAILY tamsulosin (Flomax) 0.4 mg PO BEDTIME Do you need a note to return to daycare/school/sports/work: No HPI HPI copd/pulm clearance hernia repair: Details: THIS 78 YEARS OLD GENTLEMAN HAS ADVANCED CHRONIC OBSTRUCTIVE PULMONARY DISEASE FOR THE PAST MANY YEARS. HE HAS PAST HISTORY OF SMOKING BUT QUIT MANY YEARS AGO. CURRENTLY IS COPD REMAINS CONTROLLED AND STABLE, WITH THE USE OF TRELEGY ELLIPTA ONCE A DAY AND ALSO DUONEB UPDRAFTS 3 TIMES A DAY. HE USES ALBUTEROL INHALER ONLY ONCE IN A WHILE CURRENTLY HE HAS NO ACTIVE RESPIRATORY INFECTION. HE HAS VERY LITTLE COUGH. DENIES ANY WHEEZING ATTACKS. AT HOME HE CAN WALK AROUND SHORT DISTANCES. HE USES O2 2 L/MINUTE 24 HOURS A DAY. [facility] Medical History PVD (peripheral vascular disease) with claudication Elevated cholesterol Personal history of COVID-19 BRANDAN (generalized anxiety disorder) Oxygen dependent Urinary retention Abdominal pain Respiratory failure with hypoxia COPD (chronic obstructive pulmonary disease) Mucus plugging of bronchi PAD (peripheral artery disease) AAA (abdominal aortic aneurysm) without rupture Emphysema lung Surgical History Hernia, ventral (04/19/23) Hx of hand surgery (~1984) Social History Household Members: Family Housing: House Are you a primary personal care home administrator to a significant other at home: No Do you presently have visiting nurse or other home services: No Alcohol intake: former Patient Tobacco Use Status: Former Tobacco user Tobacco use type: Cigarette Second Hand Smoke Exposure: No service: No Review of Systems Const All systems reviewed & are unremarkable except as noted in HPI and below Eyes Reports no additional complaints ENT Reports no additional complaints Card Denies chest pain, Denies irregular heart rhythm, Denies leg edema and Reports dyspnea on exertion Resp Reports as per HPI and Reports dyspnea on exertion GI Reports constipation and Reports dyspepsia Reports no additional complaints Musc Reports other (GENERAL WEAKNESS) Skin/Breast Reports system reviewed and no additional complaints, except as documented Neuro Reports no additional complaints Psych Reports no additional complaints Physical Exam Vital Signs: Last Vital Signs Pulse 96 02/04/24 09:52 Resp 16 02/04/24 09:52 BP 142/66 H 02/04/24 09:52 Pulse Ox 92 02/04/24 09:52 Oxygen Delivery Method Nasal Cannula 02/04/24 09:52 BMI result Body Mass Index 22.3 Last Vital Signs Temp 97.8 F 01/30/23 08:38 Pulse 109 H 01/30/23 08:38 Resp 24 H 01/30/23 08:38 BP 131/68 01/30/23 08:38 Pulse Ox 94 01/30/23 08:38 O2 Del Method Nasal Cannula 01/30/23 08:38 O2 Flow Rate 3 01/30/23 08:38 BMI result Body Mass Index 23.9 Const General: comfortable (Except for shortness of breath during conversation), no acute distress, alert and awake Orientation/consciousness: patient oriented x3 HEENT Head: Yes normal to inspection General nose exam: No nasal polyps present and No nasal discharge present Face and sinus: Yes sinuses nontender Mouth: oropharynx normal (I DID NOT SEE ANY EXUDATES OR ANY EXCESSIVE MUCUS . ) Teeth and gingiva: edentulous Throat: Yes posterior oropharynx normal Eyes General: appearance normal, both eyes and all related structures Neck Neck: Yes normal visual inspection, Yes no lymphadenopathy, Yes trachea midline and Yes no JVD Thyroid: Thyroid normal Chest Chest palpation & inspection: normal inspection of the chest, normal palpation of entire chest wall and no tenderness Resp Other: PERCUSSION NOTE IS RESONANT, BREATH SOUNDS ARE VERY DISTANT, BUT EQUAL ON BOTH SIDES. NO WHEEZES. A FEW INSPIRATORY CREPS OVER THE RIGHT BASE. Cardio Palpation: normal PMI Rate: regular rate Rhythm: regular rhythm Heart sounds: no gallops and no murmurs GI Palpation (GI): Soft to palpation, nontender, No hepatosplenomegaly present, no masses and Other GI palpation findings present (HAS SOME DISCOMFORT IN THE LEFT INGUINAL AREA WITH A SMALL BULGE ON COUGHIN) Auscultation: normal bowel sounds Back/Spine/Pelvis Thoracic/Lumbar Spine: thoracic and lumbar spine normal to inspection and thoraco-lumbar ROM limited Skin General skin exam: no rashes or lesions noted Neuro General: patient oriented x3 and no focal motor deficits Cranial nerves: Yes CN's II-XII intact bilaterally Extrem General: Yes normal to inspection, Yes no clubbing, cyanosis or edema and Yes no calf tenderness Psych Other: POOR GENERAL HYGIENE Appearance: disheveled Mental Status: mental status grossly normal Speech and movement: Normal speech and movement present Assessment & Plan Assessment & Plan (1) COPD (chronic obstructive pulmonary disease): Comment: PATIENT HAS ADVANCED CHRONIC OBSTRUCTIVE PULMONARY DISEASE. HE IS PRONE TO HAVE RECURRENT RESPIRATORY INFECTIONS, CAUSING ACUTE EXACERBATIONS. HOWEVER AT PRESENT HIS COPD STATUS IS WELL CONTROLLED. HIS ACTIVITY LEVEL IS LOW BUT HE DOES WALK AROUND IN THE HOUSE. Code(s): J44.9 - Chronic obstructive pulmonary disease, unspecified Category: Medical Plan: ADVISED TO CONTINUE TRELEGY ELLIPTA 1 INHALATION DAILY. USE IPRATROPIUM-ALBUTEROL SOLUTION IN THE NEBULIZER 3 TIMES A DAY REGULARLY. MAY USE ALBUTEROL HFA 2 PUFFS Q 6 HOURS P.R.N. FOR ACUTE BOUTS OF COUGH OR WHEEZING. (2) Respiratory failure with hypoxia: Comment: PATIENT HAS HYPOXEMIA, BEING TREATED WITH OXYGEN SUPPLEMENTATION, 2 L/MINUTE. Code(s): J96.91 - Respiratory failure, unspecified with hypoxia Category: Medical Plan: CONTINUE USING O2 2 L/MINUTE 24 HOURS A DAY. WHEN SITTING AND RESTING AT HOME MAY TAKE SHORT BREAKS . WERE GOING OUTDOORS HE SHOULD USE THE PORTABLE CYLINDER. HE WANTS TO BE TRIED FOR POC USAGE. I TOLD HIM THAT ONCE HE HAS UNDERGONE HIS CURRENT SURGERY, WE WILL DO 6 MINUTES WALK TEST AND THEN SEE IF HE CAN TOLERATE USAGE OF O2 CONSERVING UNIT.( POC ) (3) Mucus plugging of bronchi: Comment: PER CT SCAN ON 01/29/23, HE WAS FOUND TO HAVE MUCUS PLUGGING OF THE BRONCHI IN THE LOWER LOBES ESPECIALLY IN RIGHT LOWER LOBE. HE IS A HIGH RISK FOR BRONCHOSCOPY. He is successfully expectorating mucus after using the DuoNeb updrafts. At present he denies any difficulty in expectorating. Code(s): T17.500A - Unspecified foreign body in bronchus causing asphyxiation, initial encounter Category: Medical Plan: Continue to use DuoNeb updrafts t.i.d., and Trelegy Ellipta once a day. Plan As far as the pulmonary clearance for his surgery for left inguinal hernia, He is a poor surgical risk for any major surgical procedures. However for repair of inguinal hernia, I think he would have no significant problems. Postoperatively he will need use of DuoNeb updrafts Q 4-6 hours p.r.n. and oxygen 2-3 L/minute. Coding Level of Care Code Est Pt Level 4 (26603) Diagnoses COPD (chronic obstructive pulmonary disease) J44.9 Respiratory failure with hypoxia J96.91 Mucus plugging of bronchi T17.500A
[2024-02-04 09:52] VITALS: BP 142/66; PULSE 96; RESP 16; O2SAT 92; BMI 22.3
== END 2024-02-04 10:09 | disposition home or self-care (01) ==
PROVIDERS: PCP Internal Medicine; Visit Provider Internal Medicine
DX: J44.9 Chronic obstructive pulmonary disease, unspecified (principal); J96.91 Respiratory failure, unspecified with hypoxia; T17.500A Unspecified foreign body in bronchus causing asphyxiation, initial encounter
CPT/HCPCS: 99214

== ENCOUNTER → 2024-02-04 09:50 | Outpatient (BNVA) | payer MEDICARE, MEDICAID, SELFPAY | PROVIDERS: PCP Internal Medicine; Visit Provider Internal Medicine | DX: J44.9 Chronic obstructive pulmonary disease, unspecified (principal); J96.91 Respiratory failure, unspecified with hypoxia; T17.500A Unspecified foreign body in bronchus causing asphyxiation, initial encounter; W44.F0XA Objects of natural or organic material unspecified, entering into or through a natural orifice, initial encounter; Z87.891 Personal history of nicotine dependence | CPT/HCPCS: 99212 ==

== ENCOUNTER 2024-02-19 10:15 | Outpatient (REF) | payer MEDICARE, SELFPAY ==
--- NOTE | 2024-02-10 13:42 | PM.EVENT ---
Event Note Date of Service: 02/10/24 Event Note: Patient cleared from a vascular surgery perspective for left inguinal hernia repair by Dr. Stern. Aortic aneurysm will not be of an issue. In terms of the Plavix this was not required from a vascular perspective and we do not prescribe the Plavix. Thank you for allowing us to assist in his care Time Spent With Patient Time: Total time managing care of this patient today ____ minutes.
--- NOTE | ~2024-02-19 | US_ITS ---
EXAMINATION: NONINVASIVE ASSESSMENT OF THE ARTERIES OF BOTH LOWER EXTREMITIES WITH PVR EXAM AND BILATERAL LOWER EXTREMITY DUPLEX INTERPRETING VASCULAR & INTERVENTIONAL RADIOLOGIST: Lisa Glover MD CLINICAL INFORMATION: Duplex on 01/14/2023 TECHNIQUE: Ankle pulse volume recordings, ankle pressure measurements and ankle brachial indices were obtained of the lower extremity arterial system bilaterally in addition to duplex Doppler techniques with wave form analysis and measurement of velocities in the common femoral, profunda femoral, superficial femoral, popliteal and tibial arteries. The study was performed only at rest. COMPARISON: None FINDINGS: a) AT REST: RIGHT LE. The right ankle-brachial index is: 0.97 * >0.97-1.25 = normal - no significant arterial disease * 0.75-0.96 = mild peripheral arterial disease * 0.5-0.74 = moderate peripheral arterial disease * <0.50 = severe peripheral arterial disease 2. Right ankle pressure: normal. 3. Right ankle PVR waveform: abnormal. 4. Right direct duplex Doppler findings: Common femoral artery: 164 cm/s, Multiphasic Profunda femoris artery: 126 cm/s, Multiphasic Superficial femoral artery (proximal): 92 cm/s, Multiphasic Superficial femoral artery (mid): 116 cm/s, Multiphasic Superficial femoral artery (distal): 152 cm/s, Multiphasic Proximal Popliteal artery: 109 cm/s, Multiphasic Mid posterior tibial artery: 65 cm/s, Multiphasic Peroneal artery: not visualized LEFT LE. The left ankle-brachial index is: 0.93 * >0.97-1.25 = normal - no significant arterial disease * 0.75-0.96 = mild peripheral arterial disease * 0.5-0.74 = moderate peripheral arterial disease * <0.50 = severe peripheral arterial disease 2. Left ankle pressure: normal. 3. Left ankle PVR waveform: abnormal. 4. Left direct duplex Doppler findings: Common femoral artery: 143 cm/s, Multiphasic Profunda femoris artery: 114 cm/s, Multiphasic Superficial femoral artery (proximal): 107 cm/s, Multiphasic, patent stent Superficial femoral artery (mid): 41 cm/s, Multiphasic, patent stent Superficial femoral artery (distal): 51 cm/s, Multiphasic, patent stent Proximal Popliteal artery: 109 cm/s, Multiphasic Mid posterior tibial artery: 10 cm/s, Multiphasic Peroneal artery: 49 cm/s, Multiphasic US/US arterial duplex LE BI IMPRESSION: RIGHT LEG: No evidence of hemodynamically significant stenosis by duplex or EFRAÍN. Abnormal PVR. LEFT LEG: No evidence of hemodynamically significant stenosis by duplex or EFRAÍN. Abnormal PVR. Patent left SFA stent. Electronically signed by: Lisa Glover MD 03/13/2024 10:00 AM [facility]
--- NOTE | ~2024-02-19 | US_ITS ---
EXAMINATION: US RETROPERITONEAL LIMITED (AORTA) CLINICAL INFORMATION: Infrarenal abdominal aortic aneurysm. COMPARISON: CT abdomen and pelvis on 03/16 TECHNIQUE: Lai-scale, color Doppler and spectral Doppler evaluation of the abdominal aorta. FINDINGS: There is atherosclerotic disease. The measurements of the aorta in maximum AP and transverse dimensions respectively are as follows: Proximal: Not visualized Mid: 2.3 x 2.3 cm. Distal: 4.1 x 3.9 cm. The measurements of the common iliac arteries in maximum dimensions are as follows: Right: AP: 1.2 cm. TRV: 1.5 cm. Left: AP: 1.5 cm. TRV: 1.6 cm. US/US abdominal aortic aneurysm IMPRESSION: 4.1 cm infrarenal abdominal aortic aneurysm- measurements are slightly different compared to the prior exam due to differences in technique. Based on published guidelines in J Am Ricarda Radiol 2013; 10(10):789-794 and J Vasc Surg. 2018; 67:2-77, the recommendation for an abdominal aortic aneurysm with diameter 4.0-4.4 cm is vascular consultation and subsequent follow-up every 12 months. Electronically signed by: Lisa Glover MD 03/13/2024 09:50 AM EST
== END 2024-02-19 10:16 | disposition home or self-care (01) ==
LOC: HO.US 10:15
PROVIDERS: PCP Internal Medicine; Visit Provider Surgery Vascular Surgery
DX: I71.43 Infrarenal abdominal aortic aneurysm, without rupture (principal); I73.9 Peripheral vascular disease, unspecified
CPT/HCPCS: 76706; 93925

== ENCOUNTER 2024-03-12 10:06 | Inpatient (IN) | payer MEDICARE, SELFPAY ==
[2024-03-12] VITALS (12 sets, daily range): BP systolic 111–163; BP diastolic 55–84; PULSE 94–123; RESP 15–32; TEMP 36.2–38; O2SAT 89–96; BMI 22.6; BMI 22.1
--- NOTE | ~2024-03-12 | XR_ITS ---
EXAMINATION: XR CHEST CLINICAL INFORMATION: cp COMPARISON: None available. TECHNIQUE: Frontal view of the chest was obtained. FINDINGS: Persistent coarse interstitial markings bilaterally unchanged along with some minimal scarring in the right midlung Radiopaque density in the mid thoracic vertebra compatible with prior kyphoplasty unchanged. The cardiomediastinal silhouette normal. XR/XR chest 1V IMPRESSION: 1. No acute disease. 2. Chronic changes as above. Electronically signed by: Evaristo Olivia MD 03/12/2024 02:48 PM DENISE SALCIDO
[2024-03-12] MEDS: Albuterol/Iprat 2.5/0.5MG 3 ML AMPUL.NEB INHALE ×3 (10:39→19:10)
--- OUTSIDE RECORDS SUMMARY | 2024-03-12 10:53 | XMS_ITS | Clinical Summary ---
Author Organization Unknown Care Team Providers Care Health Teacher Name Role Phone FAISAL LUNA, SAADIA Unavailable Unavailable MIESHA JACK, CLINICAL SADDLE MAKER, JAMES Mak available Unavailable Payers Payer Name Policy Type Policy Number Effective Date Expira tion Date [employer] MEDICARE ADVANTAGE FFS [id number] MEDIC[place] - [place] PDGM [id number] Problems Condition Name Condition Details Condition Category Status Onset Date Resolution Date Last Treatment Date Treating Clinician Comments EMPHYSEMA, UNSPECIFIED Active 11-16 00:00: 00 PNEUMONIA, UNSPECIFIED ORGANISM Active 11-16 00:00: 00 ACUTE RESPIRATORY FAILURE WITH HYPOXIA Active 11-16 00:00: 00 PERIPHERAL VASCULAR DISEASE, UNSPECIFIED Active 11-16 00:00: 00 ABDOMINAL AORTIC ANEURYSM, WITHOUT RUPTURE, UNSPECIFIED Active 11-16 00:00: 00 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 Active 11-16 00:00: 00 OTHER SPECIFIED DISEASES OF LIVER Active 11-16 00:00: 00 NEPHROGENIC DIABETES INSIPIDUS Active 11-16 00:00: 00 OTHER DISEASES OF BRONCHUS, NOT ELSEWHERE CLASSIFIED Active 11-16 00:00: 00 ACIDOSIS, UNSPECIFIED Active 11-16 00:00: 00 Problems related to health literacy Active 11-16 00:00: 00 ASSISTED (CURRENT) USE OF ASPIRIN Active 11-16 00:00: 00 ASSISTED (CURRENT) USE OF INHALED STEROIDS Active 11-16 00:00: 00 ASSISTED (CURRENT) USE OF ANTITHROMBOT ICS/ANTIPLAT ELETS Active 11-16 00:00: 00 DEPENDENCE ON SUPPLEMENTAL OXYGEN Active 11-16 00:00: 00 PRESENCE OF CORONARY ANGIOPLASTY IMPLANT AND GRAFT Active 11-16 00:00: 00 PERSONAL HISTORY OF NICOTINE DEPENDENCE Active 11-16 00:00: 00 HISTORY OF FALLING Active 11-16 00:00: 00 Allergies, Adverse Reactions, Alerts Allergy Name Allergy Type Status Severity Reaction(s) Onset Date Inactive Date Treating Clinician Comments NKA Propensity to adverse reactions Active 2022-10 14:29:3 8 Medications Ordered Medication Name Filled Medication Name Start Date Stop Date Current Medication? Ordering Clinician Indication Dosage Frequency Signature (SIG) Comments Components levofloxaci n 500 mg tablet 11-14 00:00: 00 11-20 23:59 :00 No [id number] 1 tablet DAILY 1 tablet DAILY (route: oral) Med Classific ation: Anti-Infe ctive Agents prednisone 20 mg tablet 11-14 00:00: 00 11-18 23:59 :00 No [id number] 2 tablet DAILY 2 tablet DAILY (route: oral) Med Classific ation: Endocrine clopidogrel 75 mg tablet 11-09 00:00: 00 Yes [id number] Per instruc tions EVERY DAY Per instructio ns EVERY DAY (route: oral) Med Classific ation: Hematolog ical Agents Trelegy Ellipta 100 mcg-62.5 mcg-25 mcg powder for inhalation 11-06 00:00: 00 Yes [id number] 1 inhalat ion DAILY 1 inhalation DAILY (route: inhalation ) Med Classific ation: Respirato ry Therapy Agents Ventolin HFA 90 mcg/actuati on aerosol inhaler 11-06 00:00: 00 Yes [id number] Per instruc tions EVERY 6 HOURS Per instructio ns EVERY 6 HOURS (route: inhalation ) Med Classific ation: Respirato ry Therapy Agents aspirin 81 mg tablet,simi yed release 11-16 00:00: 00 Yes [id number] 1 tablet DAILY 1 tablet DAILY (route: oral) Med Classific ation: Hematolog ical Agents azithromyci n 500 mg tablet 11-21 00:00: 00 Yes [id number] 1 tablet 3 TIMES A WEEK 1 tablet 3 TIMES A WEEK (route: oral) Med Classific ation: Anti-Infe ctive Agents guaifenesin ER 600 mg tablet, extended release 12 hr 11-16 00:00: 00 Yes [id number] 1 tablet EVERY 12 HOURS 1 tablet EVERY 12 HOURS (route: oral) Med Classific ation: Respirato ry Therapy Agents O2 - OXYGEN 11-16 00:00: 00 Yes [id number] 3 Liter DAILY 3 Liter DAILY (route: Oxygen) Med Classific ation: Medical Oxygen benzonatate 200 mg capsule 11-29 00:00: 00 12-06 23:59 :00 No [id number] for cough 1 capsule DAILY 1 capsule DAILY (route: oral) Med Classific ation: Respirato ry Therapy Agents Mucinex DM 30 mg-600 mg tablet,exte nded release 12 hr 2022-03 00:00: 00 Yes [id number] 1 tablet EVERY 12 HOURS 1 tablet EVERY 12 HOURS (route: oral) Med Classific ation: Respirato ry Therapy Agents Immunizations Ordered Immunization Name Filled Immunization Name Date Status Comments Refusal Reason REFUSED FLU, PPV 2022-11-17 00:00:00 Vital Signs Vital Name Observation Time Observation Value Commen ts Temperature 2023-01-10 13:53:00.000 98 [degF] Temperature 2022-12-31 11:59:00.000 97.7 [degF] Temperature 2022-12-24 18:39:00.000 98.5 [degF] Temperature 2022-12-18 12:18:00.000 97.7 [degF] Temperature 2022-12-10 12:40:00.000 98.2 [degF] Temperature 2022-12-06 15:29:00.000 98.6 [degF] Temperature 2022-11-29 13:46:00.000 98.4 [degF] Temperature 2022-11-22 14:24:00.000 98.4 [degF] Temperature 2022-11-20 09:38:00.000 97.8 [degF] Temperature 2022-11-16 14:19:00.000 98.4 [degF] BMI (%) 2022-11-16 14:19:00.000 24 kg/m2 Height 2022-11-16 14:19:00.000 69 [in_us] Pulse 2023-01-10 13:53:00.000 75 /min Pulse 2022-12-31 11:59:00.000 76 /min Pulse 2022-12-24 18:39:00.000 80 /min Pulse 2022-12-18 12:18:00.000 82 /min Pulse 2022-12-10 12:40:00.000 68 /min Pulse 2022-12-06 15:29:00.000 90 /min Pulse 2022-11-29 13:46:00.000 96 /min Pulse 2022-11-22 14:24:00.000 99 /min Pulse 2022-11-20 09:38:00.000 90 /min Pulse 2022-11-16 14:19:00.000 93 /min O2 Saturation (%) 2023-01-10 13:53:00.000 97 % O2 Saturation (%) 2022-12-31 11:59:00.000 97 % O2 Saturation (%) 2022-12-24 18:39:00.000 96 % O2 Saturation (%) 2022-12-18 12:18:00.000 98 % O2 Saturation (%) 2022-12-10 12:40:00.000 96 % O2 Saturation (%) 2022-12-06 15:29:00.000 98 % O2 Saturation (%) 2022-11-29 13:46:00.000 94 % O2 Saturation (%) 2022-11-22 14:24:00.000 96 % O2 Saturation (%) 2022-11-20 09:38:00.000 95 % O2 Saturation (%) 2022-11-16 14:19:00.000 93 % Respirations 2023-01-10 13:53:00.000 16 /min Respirations 2022-12-31 11:59:00.000 17 /min Respirations 2022-12-24 18:39:00.000 18 /min Respirations 2022-12-18 12:18:00.000 17 /min Respirations 2022-12-10 12:40:00.000 16 /min Respirations 2022-12-06 15:29:00.000 20 /min Respirations 2022-11-29 13:46:00.000 17 /min Respirations 2022-11-22 14:24:00.000 19 /min Respirations 2022-11-20 09:38:00.000 20 /min Respirations 2022-11-16 14:19:00.000 16 /min Weight (lbs) 2022-11-16 14:19:00.000 164 [lb_av] Systolic Blood Pressure 2023-01-10 13:53:00.000 136 mm [Hg] Systolic Blood Pressure 2022-12-31 11:59:00.000 132 mm [Hg] Systolic Blood Pressure 2022-12-24 18:39:00.000 110 mm [Hg] Systolic Blood Pressure 2022-12-18 12:18:00.000 134 mm [Hg] Systolic Blood Pressure 2022-12-10 12:40:00.000 138 mm [Hg] Systolic Blood Pressure 2022-12-06 15:29:00.000 110 mm [Hg] Systolic Blood Pressure 2022-11-29 13:46:00.000 126 mm [Hg] Systolic Blood Pressure 2022-11-22 14:24:00.000 140 mm [Hg] Systolic Blood Pressure 2022-11-20 09:38:00.000 122 mm [Hg] Systolic Blood Pressure 2022-11-16 14:19:00.000 142 mm [Hg] Diastolic Blood Pressure 2023-01-10 13:53:00.000 76 mm [Hg] Diastolic Blood Pressure 2022-12-31 11:59:00.000 78 mm [Hg] Diastolic Blood Pressure 2022-12-24 18:39:00.000 60 mm [Hg] Diastolic Blood Pressure 2022-12-18 12:18:00.000 74 mm [Hg] Diastolic Blood Pressure 2022-12-10 12:40:00.000 80 mm [Hg] Diastolic Blood Pressure 2022-12-06 15:29:00.000 60 mm [Hg] Diastolic Blood Pressure 2022-11-29 13:46:00.000 74 mm [Hg] Diastolic Blood Pressure 2022-11-22 14:24:00.000 80 mm [Hg] Diastolic Blood Pressure 2022-11-20 09:38:00.000 60 mm [Hg] Diastolic Blood Pressure 2022-11-16 14:19:00.000 74 mm [Hg] Plan of Treatment Planned Activity Planned Date Details Comments Future Scheduled Test SKILLED NU RSE TO EVALUATE PATIENT, IDENTIFY PRIMARY AND CO-MORBID CONDITIONS CODED PER CODING GUIDELINES, AND DEVELOP PATIENT SPECIFIC PLAN OF CARE THAT INCLUDES PATIENT GOAL FOR HOME HEALTH. [code = SKILLED NURSE TO EVALUATE PATIENT, IDENTIFY PRIMARY AND CO-MORBID CONDITIONS CODED PER CODING GUIDELINES, AND DEVELOP PATIENT SPECIFIC PLAN OF CARE THAT INCLUDES PATIENT GOAL FOR HOME HEALTH.] Future Scheduled Test SKILLED NU RSE TO REVIEW PATIENT MEDICATIONS. INSTRUCT PATIENT/CAREGIVER ON MONITORING OF EFFECTIVENESS, ADVERSE DRUG REACTIONS, SIDE EFFECTS OF ALL MEDICATIONS (PRESCRIPTION/-OTC), AND HOW AND WHEN TO REPORT PROBLEMS. [code = SKILLED NURSE TO REVIEW PATIENT MEDICATIONS. INSTRUCT PATIENT/CAREGIVER ON MONITORING OF EFFECTIVENESS, ADVERSE DRUG REACTIONS, SIDE EFFECTS OF ALL MEDICATIONS (PRESCRIPTION/-OTC), AND HOW AND WHEN TO REPORT PROBLEMS.] Future Scheduled Test OXYGEN VIA NASAL CANNULA @ 3 LITERS CONTINUOUS. SKILLED NURSE FOR O/A AND SKILLED TEACHING OF SAFE OXYGEN USE IN THE HOME. [code = OXYGEN VIA NASAL CANNULA @ 3 LITERS CONTINUOUS. SKILLED NURSE FOR O/A AND SKILLED TEACHING OF SAFE OXYGEN USE IN THE HOME.] Future Scheduled Test SKILLED NU RSE FOR O/A, TEACHING, AND MANAGEMENT OF AAA W/O RUPTURE. [code = SKILLED NURSE FOR O/A, TEACHING, AND MANAGEMENT OF AAA W/O RUPTURE. ] Future Scheduled Test SKILLED NU RSE FOR O/A OF RESPIRATORY SYSTEM TO IDENTIFY CHANGES ASSOCIATED WITH EXACERBATION AND TO PROVIDE SKILLED TEACHING ON MANAGEMENT OF EMPHYSEMA, PNA, RESP FAILURE WITH HYPOXIA R/T MUCUS PLUGGING DISEASE PROCESS. [code = SKILLED NURSE FOR O/A OF RESPIRATORY SYSTEM TO IDENTIFY CHANGES ASSOCIATED WITH EXACERBATION AND TO PROVIDE SKILLED TEACHING ON MANAGEMENT OF EMPHYSEMA, PNA, RESP FAILURE WITH HYPOXIA R/T MUCUS PLUGGING DISEASE PROCESS.] Future Scheduled Test SKILLED NU RSE FOR TEACHING ON ADMINSTRATION OF INHALATION THERAPY AND CARE OF EQUIPMENT [code = SKILLED NURSE FOR TEACHING ON ADMINSTRATION OF INHALATION THERAPY AND CARE OF EQUIPMENT] Future Scheduled Test SKILLED NU RSE FOR O/A AND SKILLED TEACHING IN MANAGEMENT OF PAD/PVD CIRCULATORY/VASCULAR DISEASE. [code = SKILLED NURSE FOR O/A AND SKILLED TEACHING IN MANAGEMENT OF PAD/PVD CIRCULATORY/VASCULAR DISEASE.] Future Scheduled Test SKILLED NU RSE TO INSTRUCT PATIENT/CAREGIVER ON COPD TO INCLUDE TEACHING AND SELF-MANAGEMENT RELATED TO COPD DISEASE PROCESS, SIGNS AND SYMPTOMS, AND COMPLICATIONS. [code = SKILLED NURSE TO INSTRUCT PATIENT/CAREGIVER ON COPD TO INCLUDE TEACHING AND SELF-MANAGEMENT RELATED TO COPD DISEASE PROCESS, SIGNS AND SYMPTOMS, AND COMPLICATIONS.] Future Scheduled Test VIRTUAL SIT FREQUENCY: 1-6 PER WEEK X 2 WEEKS AND 6 PRN VIRTUAL VISITS MAY BE PERFORMED UTILIZING TELECOMMUNICATIONS SYSTEM TO OPTIMIZE SKILLED SERVICES FURNISHED ON THE PLAN OF CARE. SKILLED NURSE TO ESTABLISH SUPPORT MEASURES TO MINIMIZE RISK OF REHOSPITALIZATION, AND INSTRUCT PATIENT/CAREGIVER ON METHODS TO REDUCE AVOIDABLE HOSPITALIZATION. [code = VIRTUAL VISIT FREQUENCY: 1-6 PER WEEK X 2 WEEKS AND 6 PRN VIRTUAL VISITS MAY BE PERFORMED UTILIZING TELECOMMUNICATIONS SYSTEM TO OPTIMIZE SKILLED SERVICES FURNISHED ON THE PLAN OF CARE. SKILLED NURSE TO ESTABLISH SUPPORT MEASURES TO MINIMIZE RISK OF REHOSPITALIZATION, AND INSTRUCT PATIENT/CAREGIVER ON METHODS TO REDUCE AVOIDABLE HOSPITALIZATION.] Future Scheduled Test PATIENT RAMIREZ S A RISK OF HOSPITALIZATION AND ED USE. SKILLED NURSE TO ESTABLISH SUPPORT MEASURES TO MINIMIZE RISK OF HOSPITALIZATION AND ED USE, AND INSTRUCT PATIENT/CAREGIVER ON METHODS TO REDUCE AVOIDABLE HOSPITALIZATION AND ED USE. [code = PATIENT HAS A RISK OF HOSPITALIZATION AND ED USE. SKILLED NURSE TO ESTABLISH SUPPORT MEASURES TO MINIMIZE RISK OF HOSPITALIZATION AND ED USE, AND INSTRUCT PATIENT/CAREGIVER ON METHODS TO REDUCE AVOIDABLE HOSPITALIZATION AND ED USE.] Future Scheduled Test SKILLED NU RSE TO PROVIDE INSTRUCTION TO PATIENT/CAREGIVER RELATED TO DISCHARGE PLANNING. [code = SKILLED NURSE TO PROVIDE INSTRUCTION TO PATIENT/CAREGIVER RELATED TO DISCHARGE PLANNING.] Future Scheduled Test SKILLED NU RSE TO PERFORM HOME SAFETY AND FALL ASSESSMENT AND PROVIDE INSTRUCTION TO IMPLEMENT HOME SAFETY AND FALL PREVENTION STRATEGIES. [code = SKILLED NURSE TO PERFORM HOME SAFETY AND FALL ASSESSMENT AND PROVIDE INSTRUCTION TO IMPLEMENT HOME SAFETY AND FALL PREVENTION STRATEGIES.] Future Scheduled Test SKILLED NU RSE FOR OBSERVATION AND ASSESSMENT OF PATIENTS PAIN LEVEL AND EFFECTIVENESS OF PAIN MANAGEMENT REGIMEN. SKILLED NURSE TO INSTRUCT PATIENT/CAREGIVER REGARDING PHARMACOLOGIC AND NON-PHARMACOLOGIC PAIN CONTROL MEASURES. SKILLED NURSE TO REPORT TO PHYSICIAN IF PAIN IS UNCONTROLLED WITH CURRENT PAIN MANAGEMENT REGIMEN. [code = SKILLED NURSE FOR OBSERVATION AND ASSESSMENT OF PATIENTS PAIN LEVEL AND EFFECTIVENESS OF PAIN MANAGEMENT REGIMEN. SKILLED NURSE TO INSTRUCT PATIENT/CAREGIVER REGARDING PHARMACOLOGIC AND NON-PHARMACOLOGIC PAIN CONTROL MEASURES. SKILLED NURSE TO REPORT TO PHYSICIAN IF PAIN IS UNCONTROLLED WITH CURRENT PAIN MANAGEMENT REGIMEN.] Future Scheduled Test SKILLED NU RSE TO ASSESS PATIENT'S SKIN INTEGRITY AND INSTRUCT PATIENT/CAREGIVER ON MEASURES TO PREVENT PRESSURE ULCERS. [code = SKILLED NURSE TO ASSESS PATIENT'S SKIN INTEGRITY AND INSTRUCT PATIENT/CAREGIVER ON MEASURES TO PREVENT PRESSURE ULCERS.] Future Scheduled Test SKILLED NU RSE TO PROVIDE ASSESSMENT AND TEACHING/REINFORCEMENT OF MANAGEMENT OF DEPRESSION INCLUDING DISEASE PROCESS, MEDICATION MANAGEMENT, COPING SKILLS AND IDENTIFY CHANGES ASSOCIATED WITH DEPRESSIVE DISORDERS FOR EARLY INTERVENTION. [code = SKILLED NURSE TO PROVIDE ASSESSMENT AND TEACHING/REINFORCEMENT OF MANAGEMENT OF DEPRESSION INCLUDING DISEASE PROCESS, MEDICATION MANAGEMENT, COPING SKILLS AND IDENTIFY CHANGES ASSOCIATED WITH DEPRESSIVE DISORDERS FOR EARLY INTERVENTION.] Goal 2023-01-10 Patient Goal - TO GET BETTER Goal Provider Goal - A PLAN OF CARE WILL BE ESTABLISHED THAT MEETS PATIENT'S PRISON NEEDS AND INCLUDES PATIENT GOAL FOR HOME HEALTH. Goal Provider Goal - PATIENT/CAREGIVER WILL VERBALIZE UNDERSTANDING OF EDUCATION PROVIDED ON MEDICATIONS BY THE END OF THE CERTIFICATION PERIOD. Goal Provider Goal - PATIENT/CAREGIVER WILL VERBALIZE/DEMONSTRATE UNDERSTANDING OF SAFE OXYGEN USE IN THE HOME THROUGHOUT THE EPISODE. Goal Provider Goal - PATIENT/CAREGIVER WILL VERBALIZE/DEMONSTRATE MANAGEMENT OF CARDIAC DISEASE PROCESS AND EXACERBATIONS WILL BE IDENTIFIED AND PROMPTLY REPORTED THROUGHOUT THE CERTIFICATION PERIOD. Goal Provider Goal - PATIENT/CAREGIVER WILL VERBALIZE/DEMONSTRATE MANAGEMENT OF RESPIRATORY DISEASE PROCESS. CHANGES IN RESPIRATORY STATUS WILL BE IDENTIFIED AND REPORTED TO PHYSICIAN FOR PROMPT INTERVENTION THROUGHOUT THE CERTIFICATION PERIOD. Goal Provider Goal - PATIENT/CAREGIVER WILL VERBALIZE/DEMONSTRATE INDEPENDENCE WITH ADMINISTRATION OF ORDERED INHALATION THERAPY AND CARE OF EQUIPMENT A RESULT OF SKILLED TEACHING THROUGHOUT THE EPISODE. Goal Provider Goal - PATIENT/CAREGIVER WILL VERBALIZE/DEMONSTRATE THE ABILITY TO MANAGE CIRCULATORY DISEASE PROCESS AND EXACERBATIONS WILL BE IDENTIFIED FOR EARLY INTERVENTION THROUGHOUT THE CERTIFICATION PERIOD. Goal Provider Goal - PATIENT/CAREGIVER WILL VERBALIZE/DEMONSTRATE KNOWLEDGE AND MANAGEMENT OF COPD BY END OF EPISODE. Goal Provider Goal - PATIENT/CAREGIVER WILL UTILIZE VIRTUAL VISITS TO ACHIEVE GOALS OUTLINED ON THE PLAN OF CARE. PATIENT WILL HAVE SUPPORT MEASURES ESTABLISHED TO PREVENT HOSPITALIZATION AND PATIENT/CAREGIVER WILL VERBALIZE/DEMONSTRATE METHODS TO REDUCE AVOIDABLE HOSPITALIZATION THROUGHOUT THE CERTIFICATION PERIOD. Goal Provider Goal - PATIENT WILL HAVE SUPPORT MEASURES ESTABLISHED TO PREVENT HOSPITALIZATION AND ED USE AND PATIENT/CAREGIVER WILL VERBALIZE/DEMONSTRATE METHODS TO REDUCE AVOIDABLE HOSPITALIZATION AND ED USE BY END OF EPISODE. Goal Provider Goal - PATIENT/CAREGIVER WILL VERBALIZE UNDERSTANDING OF DISCHARGE PLANNING INSTRUCTIONS BY DATE OF DISCHARGE. Goal Provider Goal - PATIENT/CAREGIVER WILL VERBALIZE/DEMONSTRATE EFFECTIVE HOME SAFETY AND FALL PREVENTION STRATEGIES THROUGHOUT CERTIFICATION PERIOD. Goal Provider Goal - : PATIENT/CAREGIVER WILL DEMONSTRATE AN UNDERSTANDING OF PHARMACOLOGIC AND NONPHARMACOLOGIC PAIN CONTROL MEASURES, AND THE PATIENT WILL HAVE IMPROVEMENT IN PAIN INTERFERING WITH ACTIVITY EVIDENCED BY PAIN CONTROLLED AT A LEVEL OF 7 OR LESS BY THE END OF THE CERTIFICATION PERIOD. Goal Provider Goal - PATIENT/CAREGIVER WILL VERBALIZE UNDERSTANDING OF PRESSURE ULCER PREVENTION BY END OF THE EPISODE. Goal Provider Goal - PATIENT/CAREGIVER WILL VERBALIZE/DEMONSTRATE UNDERSTANDING OF THE MANAGEMENT OF DEPRESSION THROUGHOUT THE CERTIFICATION PERIOD AND SYMPTOMS ARE IDENTIFIED AND MANAGED TO MAINTAIN PATIENT SAFETY IN THE HOME. Reason for Visit INDEPENDENT WITH USE OF ASSISTIVE DEVICE Encounters Start Date/Time End Date/Time Encounter Type Admission Type Attending [facility] Care Department Encounter ID Discharge Date Discharge Status Discharge Condition Discharge Reason Percent Goals Met 2022-11-16 00:00:00 2023-01-10 00:00:00 Outpatient NEW ADMISSION [facility] [id number] 2023-01-10 00:00:00 DISCHARGE TO HOME OR SELF CARE INDEPENDEN T WITH USE OF ASSISTIVE DEVICE GOALS MET ( ONLY) 93.55
--- NOTE | 2024-03-12 11:13 | ECG_ITS ---
Test Reason : SOB Blood Pressure : / mmHG Vent. Rate : 118 BPM Atrial Rate : 118 BPM P-R Int : 172 ms QRS Dur : 078 ms QT Int : 286 ms P-R-T Axes : 049 -07 023 degrees QTc Int : 400 ms Sinus tachycardia Nonspecific ST and T wave abnormality Abnormal ECG When compared with ECG of 11-NOV-2023 14:58, No significant change was found Referred By: Kathie Kaufman Electronically Signed By:EBONY LOFTON
--- NOTE | 2024-03-12 11:16 | ED.SOB ---
HPI - SOB/Dyspnea General Chief Complaint: Dyspnea Stated Complaint: SOB/ Wheezing for 3 days. Hx COPD per ems Time Seen by Provider: 03/12/24 10:10 History of Present Illness HPI Narrative: Patient is a 78-year-old male with a history of COPD. Baseline on 3 L of oxygen at home. Presents today with having increasing coughing congestion upper respiratory symptoms generalized malaise with some getting worse for the last 2 days Related Data Home Medications ?Medication ?Instructions ?Recorded ?Confirmed albuterol sulfate 90 mcg/actuation 2 puff inhalation Q6H PRN 11/08/22 02/04/24 aerosol inhaler (Ventolin HFA) Shortness Of Breath Or Wheezing aspirin 81 mg tablet,delayed 81 mg PO DAILY 11/08/22 02/04/24 release clopidogrel 75 mg tablet 75 mg PO DAILY 04/16/23 02/04/24 fluticasone fur. 200 mcg-umeclid 1 ea inhalation DAILY 01/20/24 02/04/24 62.5 mcg-vilant 25 mcg inhalat.powder (Trelegy Ellipta) Previous Rx's ?Medication ?Instructions ?Recorded nebulizers #1 ea 11/14/22 aluminum-mag hydroxide-simethicone 10 ml PO TID PRN heartburn #3,000 11/14/23 400 mg-400 mg-40 mg/5 mL oral susp mL (Maalox Maximum Strength) omeprazole 20 mg capsule,delayed 20 mg PO DAILY #90 caps 11/14/23 release tamsulosin 0.4 mg capsule (Flomax) 0.4 mg PO BEDTIME #90 caps 01/16/24 ipratropium 0.5 mg-albuterol 3 mg 3 ml inhalation QID PRN for 02/17/24 (2.5 mg base)/3 mL nebulization wheezing #180 mL soln Allergies Allergy/AdvReac Type Severity Reaction Status Date / Time No Known Allergies Allergy Verified 03/12/24 10:18 [facility] Past Medical History Medical History PVD (peripheral vascular disease) with claudication Elevated cholesterol Personal history of COVID-19 BRANDAN (generalized anxiety disorder) Oxygen dependent Urinary retention Abdominal pain Respiratory failure with hypoxia COPD (chronic obstructive pulmonary disease) Mucus plugging of bronchi PAD (peripheral artery disease) AAA (abdominal aortic aneurysm) without rupture Emphysema lung Surgical History Hernia, ventral (04/19/23) Hx of hand surgery (~1984) Social History Social History Household Members: Family Housing: House Are you a primary manager of care to a significant other at home: No Do you presently have visiting nurse or other home services: No Alcohol intake: former Patient Tobacco Use Status: Former Tobacco user Tobacco use type: Cigarette Second Hand Smoke Exposure: No Advance Directives: No Advance Directives Information Provided: Yes Do you have a plan to hurt others: No Plan service: No Physical Exam Vital Signs: Vital Signs: Last Vital Signs Temp 99.0 F 03/12/24 10:13 Pulse 123 H 03/12/24 12:14 Resp 30 H 03/12/24 12:14 BP 138/69 03/12/24 12:14 Pulse Ox 89 L 03/12/24 12:14 O2 Del Method Nasal Cannula 03/12/24 12:14 O2 Flow Rate 2 03/12/24 12:14 Oxygen Flow Rate 3 03/12/24 10:13 BMI result Body Mass Index 22.6 Medications Administered Discontinued Medications Generic Name Dose Route Start Last Admin Trade Name Freq PRN Reason Stop Dose Admin Albuterol/Ipratropium 3 ml 03/12/24 10:30 03/12/24 10:39 Albuterol/Iprat 2.5/0.5mg 3 Ml Ampul.Neb INHALE 03/12/24 10:31 3 ml ONCE ONE Administration Azithromycin 500 mg 03/12/24 11:14 03/12/24 12:21 Azithromycin 500 Mg Tablet PO 03/12/24 11:15 500 mg ONCE ONE Administration Ceftriaxone Sodium 1 gm 03/12/24 11:14 03/12/24 12:23 Ceftriaxone Sodium 1 Gm Vial IVPUSH 03/12/24 11:15 1 gm ONCE ONE Administration Albuterol Sulfate 2.5 mg/ 0 mg 03/12/24 11:41 03/12/24 11:47 Albuterol/Ipratropium 3 ml INHALE 03/12/24 11:42 5 dose ONCE ONE Administration Sodium Chloride 1,000 mls @ 999 mls/hr 03/12/24 11:15 03/12/24 12:24 Ns IV 03/12/24 12:15 999 mls/hr .Q1H1M ABHILASH Administration Methylprednisolone Sodium Succinate 125 mg 03/12/24 11:13 03/12/24 12:16 Methylprednisolone Sod Succ 125 Mg/2 Ml Vial IVPUSH 03/12/24 11:14 125 mg ONCE ONE Administration Medical Decision Making Medical Decision Making [facility] Narrative: Patient is 78 years old presented today with having increasing shortness of breath needing more oxygen than normal. Given nebulized treatment. Steroid. Chest x-ray by my interpretation showed bilateral infiltrate. Cultures of pain antibiotic was started. Patient's lactate is less than 2 there is no evidence for severe sepsis. Patient's VBG was done. By my interpretation is no CO2 retention. Patient's case was discussed with the hospitalist team. Will admit for further evaluation and treatment. Differential Diagnosis Differential Diagnoses: The differential diagnosis associated with the presentation includes COPD exacerbation, pneumonia Admission/Observation Consideration of admission/observation: Escalation of care including admission/observation considered Consult Healthcare Provider Management of the patient was discussed with: Hospitalist Lab Data [facility] Lab Attestation statement: I reviewed the patient's lab results. 03/12/24 12:02 03/12/24 12:02 Labs: Lab Results 03/12/24 03/12/24 Range/Units 12:02 12:08 WBC 9.3 (4.8-10.8) X10*3/uL RBC 3.78 L (4.60-5.80) X10*6/uL Hgb 11.4 L (14.0-18.0) g/dl Hct 35.3 L (42.0-52.0) % MCV 93.4 (80.0-98.0) fL MCH 30.2 (27.0-33.0) pg MCHC 32.3 (31.0-36.0) g/dl RDW 14.3 (11.0-16.0) % Plt Count 255 (160-400) X10*3/uL MPV 10.3 (9.4-12.4) fL Immature Gran % (Auto) 0.8 H (0.0-0.4) % Neut % (Auto) 81.2 H (45-73) % Lymph % (Auto) 5.6 L (20-40) % [place] % (Auto) 12.0 H (2-11) % Eos % (Auto) 0.1 (0-4) % Baso % (Auto) 0.3 (0-2) % Lymph # (Auto) 0.5 L (1.2-4.9) X10*3/uL [place] # (Auto) 1.1 (0.1-1.2) X10*3/uL Eos # (Auto) 0.0 (0.0-0.4) X10*3/uL Baso # (Auto) 0.0 (0.0-0.2) X10*3/uL Abs Immat Gran (auto) 0.07 H (0.00-0.03) X10*3/uL Absolute Neuts (auto) 7.6 (2.0-8.3) x10*3/uL Absolute Nucleated RBC 0.000 (0.0-0.012) X10*3/uL Nucleated RBC % (auto) 0.0 (0.0-0.2) /100WBC VBG pH 7.51 H (7.32-7.43) VBG pCO2 37 mmHg VBG pO2 93 mmHg VBG HCO3 30 H (22-26) mmol/L VBG O2 Saturation 99.0 % VBG Base Excess 6.9 mmol/L Sodium 140 (135-145) mmol/L Potassium 4.0 (3.3-5.1) mmol/L Chloride 105 (96-108) mmol/L Carbon Dioxide 28 (22-29) mmol/L Anion Gap 11 L (12-20) BUN 22 H (9-16) mg/dL Creatinine 0.99 (0.5-1.4) mg/dL Estim Creat Clear Calc 60.2 Estimated GFR > 60 Random Glucose 114 (60-115) mg/dL Lactic Acid 1.1 (0.5-2.0) mmol/L Calcium 8.6 (8.4-10.2) mg/dL Total Bilirubin 0.3 (0.0-1.0) mg/dL Direct Bilirubin 0.1 (0.0-0.5) mg/dL AST 18 (5-37) U/L ALT 7 (0-40) U/L Alkaline Phosphatase 54 (39-117) U/L Troponin I High Sens 3.4 (<3.5-35.0) ng/L Total Protein 7.1 (6.5-8.0) g/dL Albumin 3.5 (3.5-5.0) g/dL Influenza Type A (PCR) NEGATIVE (Negative) Influenza Type B (PCR) NEGATIVE (Negative) RSV RNA Qual (PCR) NEGATIVE (Negative) SARS-CoV-2 RNA (RT-PCR) NEGATIVE (Negative) Independent Interpretation I performed an independent interpretation of an: EKG (My interpretation of patient's EKG showed a sinus tachycardia heart rate is 120 VA QRS QTC normal there is diffuse T-wave flattening noted.) and Plain X-Ray (Chest x-ray showed significant infiltrate bilaterally) External Record Review External record reviewed: Inpatient record Chronic Conditions Patient?s care impacted by: Hypertension Long history of smoking COPD O2 dependent Social Determinants Patient?s care significantly limited by Social Determinants of Health including: Inadequate housing and Low income Critical Care Time Critical Care Time Critical Care Time: Yes Total Critical Care Time: 40 Attestation: I have personally provided 40 minutes of critical care time exclusive of time spent on separately billable procedures. ?Time includes review of lab data, radiology results, discussion with consultants, and monitoring for potential decompensation. ?Interventions were performed as documented above Discharge Plan Discharge Clinical Impression: Respiratory failure with hypoxia Prescriptions: No Action tamsulosin [Flomax] 0.4 mg capsule 0.4 mg PO BEDTIME Qty: 90 2RF ipratropium-albuterol 0.5 mg-3 mg(2.5 mg base)/3 mL solution for nebulization 3 ml inhalation QID PRN (Reason: for wheezing) Qty: 180 0RF albuterol sulfate [Ventolin HFA] 90 mcg/actuation HFA aerosol inhaler 2 puff inhalation Q6H PRN (Reason: Shortness Of Breath Or Wheezing) aspirin 81 mg Tablet,Delayed Release (Dr/Ec) 81 mg PO DAILY (DME) nebulizers Misc See Rx Instructions .Route Qty: 1 0RF Rx Instructions: As directed clopidogrel 75 mg tablet 75 mg PO DAILY omeprazole 20 mg capsule,delayed release(DR/EC) 20 mg PO DAILY Qty: 90 0RF alum-mag hydroxide-simeth [Maalox Maximum Strength] 400-400-40 mg/5 mL suspension 10 ml PO TID PRN (Reason: heartburn) Qty: 3000 0RF Trelegy Ellipta 200-62.5-25 mcg blister with device 1 ea inhalation DAILY Print Language: Monegasque
[2024-03-12] MEDS: Albuterol Sulfate 2.5 MG, Albuterol/Iprat 2.5/0.5MG 3 ML 3 ML INHALE (11:47)
[2024-03-12 12:08] LABS: MANUAL DIFF FLAG NO
[2024-03-12 12:10] LABS: Basophils Percent Auto 0.3 % (0-2); Eosinophils Percent Auto 0.1 % (0-4); Hematocrit 35.3 % (42.0-52.0); Hemoglobin 11.4 g/dl (14.0-18.0); Imm Gran Abs Auto 0.07 X10*3/uL (0.00-0.03); Imm Gran Pct Auto 0.8 % (0.0-0.4); Lymphocytes Absolute Auto 0.5 X10*3/uL (1.2-4.9); Lymphocytes Percent Auto 5.6 % (20-40); Mean Corpuscular HGB Conc 32.3 g/dl (31.0-36.0); Mean Corpuscular Hemoglobin 30.2 pg (27.0-33.0); Mean Corpuscular Volume 93.4 fL (80.0-98.0); Mean Platelet Volume 10.3 fL (9.4-12.4); Monocytes Absolute Auto 1.1 X10*3/uL (0.1-1.2); Neutrophils Absolute Auto 7.6 x10*3/uL (2.0-8.3); Neutrophils Percent Auto 81.2 % (45-73); Platelet Count 255 X10*3/uL (160-400); Red Blood Count 3.78 X10*6/uL (4.60-5.80); Red Cell Distribution Width 14.3 % (11.0-16.0); White Blood Count 9.3 X10*3/uL (4.8-10.8)
[2024-03-12 12:12] LABS: VBG Base Excess 6.9 mmol/L; VBG HCO3 30 mmol/L (22-26); VBG pCO2 37 mmHg; VBG pH 7.51 (7.32-7.43); VBG pO2 93 mmHg
[2024-03-12 12:14] LABS: Venous Blood Gas Refer to POC result
[2024-03-12] MEDS: methylPREDNISolone Sod Succ 125 MG/2 ML VIAL IVPUSH (12:16)
[2024-03-12] MEDS: Azithromycin 500 MG TABLET PO (12:21)
[2024-03-12] MEDS: cefTRIAXone sodium 1 GM VIAL IVPUSH (12:23)
[2024-03-12 12:24] LABS: Lactic Acid 1.1 mmol/L (0.5-2.0)
[2024-03-12] MEDS: 0.9 % Sodium Chloride 1,000 ML 999 ML IV (12:24)
[2024-03-12 12:26] LABS: Alanine Aminotransferase 7 U/L (0-40); Albumin Level 3.5 g/dL (3.5-5.0); Alkaline Phosphatase 54 U/L (39-117); Anion Gap 11 (12-20); Aspartate Amino Transferase 18 U/L (5-37); Bilirubin Direct 0.1 mg/dL (0.0-0.5); Bilirubin Total 0.3 mg/dL (0.0-1.0); Blood Urea Nitrogen 22 mg/dL (9-16); Calcium 8.6 mg/dL (8.4-10.2); Carbon Dioxide 28 mmol/L (22-29); Chloride 105 mmol/L (96-108); Creatinine Clr Calc Pharmacy 60.2; Estimated Glomerular Filt Rate > 60; Glucose Random 114 mg/dL (60-115); Sodium 140 mmol/L (135-145); Total Protein 7.1 g/dL (6.5-8.0)
[2024-03-12 12:32] LABS: Troponin-I High Sensitivity 3.4 ng/L (<3.5-35.0)
[2024-03-12 12:49] LABS: Influenza A PCR NEGATIVE (Negative); Influenza B PCR NEGATIVE (Negative); Resp Syncy Virus RNA Qual PCR NEGATIVE (Negative); SARS COV2 PCR INHOUSE NEGATIVE (Negative)
--- NOTE | 2024-03-12 13:30 | PC.NURSE ---
Pt biba for increased sob/cough/and generalized weakness x2-3 days and decreased PO intake. EMS found pt O2 sat to be low 80s on his 3L NC baseline. Pt sitting upright in bed, tripod position, working to breathe. Respiratory at bedside with pt to give breathing treatment. Pt switched to oxymask 1L d/t mouth breathing, resting more comfortably upright in bed. Ekg and labs obtained and sent to lab. Call sommer within reach, all needs met at this time.
--- NOTE | 2024-03-12 13:57 | P.HPHOSP_ITS ---
History of Present Illness Date of Service: 03/12/24 Attending physician on admission: Addison Ramirez Chief Complaint: Cough, weakness Pt is a 78-year-old male with a PMH significant for?COPD with chronic hypoxemic respiratory failure on 2-3L home O2, peripheral artery disease, AAA, GERD, BPH, and chronic anemia who presents to the ED with?increased fatigue, weakness, and cough x2-3 days. Cough has been mostly non-productive and worseing since yesterday. Has also not been eating or drinking much the past few days. Chest tightness associated with cough. Patient denies significant shortness of or difficulty breathing. No chest pressure. Denies fever, chills, nausea, vomiting, abdominal pain. EMS report found patient satting at 83% on 3 L and in tripod position. In the ED pt with elevated temp of 100.4 degrees, tachycardic up to 123, tachypnea up to 30, and desatting into the 80s on 3L O2. Labs were significant for VB pH 7.51, pCO2 37, and bicarb 30. Otherwise grossly unremarkable and baseline for patient. No leukocytosis. Stable normocytic anemia of 11.4/35.3. No significant electrolyte abnormalities. Renal and hepatic function WNL. Lactic acid WNL at 1.1. Troponin WNL at 3.4. Tested negative for flu, RSV, and COVID. CXR pending. EKG demonstrated sinus tachycardia of 118 without evidence of significant ST elevations or depressions. Pt was treated with DuoNebs, Solu- Medrol, IVF, azithromycin, and ceftriaxone. Pt will be admitted to the hospital treatment and further evaluation of acute on chronic hypoxic respiratory failure in the setting of acute COPD exacerbation. Review of Systems 2 Review of Systems: Negative except for that which stated in HPI [facility] Medical History PVD (peripheral vascular disease) with claudication Elevated cholesterol Personal history of COVID-19 BRANDAN (generalized anxiety disorder) Oxygen dependent Urinary retention Abdominal pain Respiratory failure with hypoxia COPD (chronic obstructive pulmonary disease) Mucus plugging of bronchi PAD (peripheral artery disease) AAA (abdominal aortic aneurysm) without rupture Emphysema lung Surgical History Hernia, ventral (04/19/23) Hx of hand surgery (~1984) Social History Household Members: Family Housing: House Are you a primary acute care clinical nurse specialist to a significant other at home: No Do you presently have visiting nurse or other home services: No Alcohol intake: former Patient Tobacco Use Status: Former Tobacco user Tobacco use type: Cigarette Second Hand Smoke Exposure: No Advance Directives: No Advance Directives Information Provided: Yes Do you have a plan to hurt others: No Plan service: No Meds Allergies Allergy/AdvReac Type Severity Reaction Status Date / Time No Known Allergies Allergy Verified 03/12/24 10:18 Home Medications ?Medication ?Instructions ?Recorded ?Confirmed ?Last Taken ?Type albuterol sulfate 90 mcg/actuation 2 puff inhalation Q6H PRN 11/08/22 03/12/24 04/19/23 History aerosol inhaler (Ventolin HFA) Shortness Of Breath Or Wheezing aspirin 81 mg tablet,delayed 81 mg PO DAILY 11/08/22 03/12/24 03/12/24 History release clopidogrel 75 mg tablet 75 mg PO DAILY 04/16/23 03/12/24 03/12/24 History famotidine 20 mg tablet 20 mg PO BID 03/12/24 03/12/24 Unknown History fluticasone fur. 200 mcg-umeclid 1 ea inhalation DAILY 03/12/24 03/12/24 03/12/24 History 62.5 mcg-vilant 25 mcg inhalat.powder (Trelegy Ellipta) omeprazole 20 mg capsule,delayed 20 mg PO DAILY@0630 03/12/24 03/12/24 Unknown History release Physical Exam 2 Vital Signs and Narrative: Vital Signs: Last Vital Signs Temp 100.4 F 03/12/24 13:54 Pulse 113 H 03/12/24 13:54 Resp 25 H 03/12/24 13:54 BP 125/61 03/12/24 13:54 Pulse Ox 89 L 03/12/24 13:54 O2 Del Method Oxymask 03/12/24 13:54 O2 Flow Rate 1 03/12/24 13:54 Oxygen Flow Rate 3 03/12/24 10:13 BMI result Body Mass Index 22.6 Constitutional: Alert, unkempt, in no acute distress. Mental Status: Oriented to person, place and time. Eyes: Pupils are equal, round, and reactive to light. Ear, Nose, and Throat: Oropharynx clear, mucous membranes moist. Ears and nose without deformities. Trachea midline. Respiratory: Diminished with mild expiratory wheezing. Cardiovascular: S1, S2 regular rhythm, tachycardic. No murmurs, rubs, or gallops. Gastrointestinal: Abdomen soft, non-tender, non-distended. Normal bowel sounds. Neurologic: Cranial nerves II-XII are grossly intact bilaterally. No focal neurological deficits. Moves all extremities spontaneously. Skin: Warm, dry. Extremities: No edema. Psychiatric: Normal mood and affect. Results Labs 03/12/24 12:02 03/12/24 12:02 Labs: Laboratory Results - last 24 hr 03/12/24 03/12/24 12: 12:08 MCV 93.4 MCH 30.2 MCHC 32.3 RDW 14.3 Plt Count 255 MPV 10.3 Immature Gran % (Auto) 0.8 H Neut % (Auto) 81.2 H Lymph % (Auto) 5.6 L [place] % (Auto) 12.0 H Eos % (Auto) 0.1 Baso % (Auto) 0.3 Lymph # (Auto) 0.5 L [place] # (Auto) 1.1 Eos # (Auto) 0.0 Baso # (Auto) 0.0 Abs Immat Gran (auto) 0.07 H Absolute Neuts (auto) 7.6 Absolute Nucleated RBC 0.000 Nucleated RBC % (auto) 0.0 VBG pH 7.51 H VBG pCO2 37 VBG pO2 93 VBG HCO3 30 H VBG O2 Saturation 99.0 VBG Base Excess 6.9 Anion Gap 11 L Estim Creat Clear Calc 60.2 Estimated GFR > 60 Random Glucose 114 Lactic Acid 1.1 Calcium 8.6 Total Bilirubin 0.3 Direct Bilirubin 0.1 AST 18 ALT 7 Alkaline Phosphatase 54 Troponin I High Sens 3.4 Total Protein 7.1 Albumin 3.5 Influenza Type A (PCR) NEGATIVE Influenza Type B (PCR) NEGATIVE RSV RNA Qual (PCR) NEGATIVE SARS-CoV-2 RNA (RT-PCR) NEGATIVE Assessment and Plan (1) Acute and chronic respiratory failure: Status: Acute (2) COPD exacerbation: Status: Resolved Plan Pt is a 78-year-old male with a PMH significant for?COPD with chronic hypoxemic respiratory failure on 2-3L home O2, peripheral artery disease, AAA, GERD, BPH, and chronic anemia who presents to the ED with?increased fatigue, weakness, and cough x2-3 days. Pt will be admitted to the hospital treatment and further evaluation of acute on chronic hypoxic respiratory failure in the setting of acute COPD exacerbation. Acute on chronic hypoxic respiratory in the setting of COPD exacerbation Patient desatting into 80s on 3 L O2, increased cough, fatigue CXR pending Pt meets SIRS criteria with tachycardia and tachypnea; no fever or leukocytosis; lactic acid WNL Patient received IVF and started on broad-spectrum antibiotics in the ED Will hold off on additional antibiotics for now pending official CXR read Will treat with Solu-Medrol, DuoNebs, guaifenesin Check procalcitonin Consider respiratory panel if CXR negative for pneumonia/consolidation Monitor respiratory status Peripheral artery disease with claudication Continue aspirin, Plavix GERD Omeprazole, famotidine BPH Continue tamsulosin Chronic anemia Stable, at baseline Full Code Attending:?Dr. Lagunas DVT Prophylaxis: Lovenox Pt will require a hospitalization of at least two nights for treatment of? acute on chronic hypoxic respiratory failure in the setting of acute COPD exacerbation. Due to patient's increased oxygen demand, will require administration of IV steroids, breathing treatments, and close monitoring of respiratory status. Quality Stroke Does the patient have a stroke diagnosis?: No VTE Prior VTE?: No VTE Risk Level:: Medical - moderate - high VTE Device Contraindication: Treatment Not Indicated VTE Drug Contraindication: N/A - Med Ordered
[2024-03-12] MEDS: guaiFENesin DM 200/20/10 ML 10 ML SYRUP PO ×2 (14:34→23:35)
--- NOTE | 2024-03-12 14:41 | PHA.MEDREC ---
Addendum entered by Shane Calero RP 03/12/24 14:54: MED REC CHECKED BY [facility] Original Note: Pharmacy Consult ? Medication Reconciliation Pharmacy has completed the medication reconciliation. Patient is a poor historian, he didn't know what medications he takes. Patient states his son knows what medications he is on. Called patients son to confirm med list, however son didn't know either. Son states patient had a list in his pocket and he is now in patients room. Met with son and got a list of patients medication. There are some medication that are on patients list that have no claims. Pravastatin 80 mg, Spiriva Handhaler 18 mcg, and Sertraline 25 or 50 mg. Called [facility] to confirm and they have no history of fills. Left off med rec. Medication that I see in claims patient didn't know if he was taking Omeprazole 20 mg, Tamsulosin 0.4 mg, Famotidine 20 mg. left on med rec.
[2024-03-12 14:45] LABS: Procalcitonin 0.11 ng/mL
[2024-03-12 14:51] LABS: B Type Natriuretic Peptide 14 pg/mL (<100)
[2024-03-12] MEDS: Acetaminophen 325 MG TABLET 650 MG PO (15:10)
[2024-03-12] MEDS: Enoxaparin Sodium 40 MG/0.4 ML SYRINGE SUBCUT (15:29)
[2024-03-12] MEDS: 0.9 % Sodium Chloride Flush 3 ML SYRINGE IVFLUSH ×2 (15:30→19:37)
[2024-03-12] MEDS: Tamsulosin HCL 0.4 MG CAPSULE PO (19:35)
[2024-03-12] MEDS: methylPREDNISolone Sod Succ 40 MG/ML VIAL IVPUSH (19:36)
[2024-03-12] MEDS: Famotidine 20 MG TABLET PO (19:36)
[2024-03-12] MEDS: Flu Vacc TS2024-25(6mos up)/PF 0.5 ML SYRINGE IM (19:37)
[2024-03-13] VITALS (10 sets, daily range): BP systolic 104–159; BP diastolic 55–77; PULSE 72–89; RESP 16–20; TEMP 36.3–37.4; O2SAT 93–97
[2024-03-13] MEDS: Aspirin Enteric Coated 81 MG TABLET.DR PO (07:17)
[2024-03-13] MEDS: Famotidine 20 MG TABLET PO ×2 (07:17→20:40)
[2024-03-13] MEDS: Clopidogrel Bisulfate 75 MG TABLET PO (07:17)
[2024-03-13] MEDS: methylPREDNISolone Sod Succ 40 MG/ML VIAL IVPUSH ×2 (07:17→20:40)
[2024-03-13] MEDS: 0.9 % Sodium Chloride Flush 3 ML SYRINGE IVFLUSH ×3 (07:17→20:40)
[2024-03-13] MEDS: Albuterol/Iprat 2.5/0.5MG 3 ML AMPUL.NEB INHALE ×4 (08:29→19:23)
[2024-03-13 08:57] LABS: Adenovirus PCR Not Detected (Not Detect.); Bordetella parapertussis PCR Not Detected (Not Detect.); Bordetella pertussis PCR Not Detected (Not Detect.); Chlamydia pneumoniae PCR Not Detected (Not Detect.); Coronavirus 229E PCR Not Detected (Not Detect.); Coronavirus HKU1 PCR Not Detected (Not Detect.); Coronavirus NL63 PCR Not Detected (Not Detect.); Coronavirus OC43 PCR Not Detected (Not Detect.); Human metapneumovirus PCR Not Detected (Not Detect.); Influenza A PCR Not Detected (Not Detect.); Influenza B PCR Not Detected (Not Detect.); Mycoplasma pneumoniae PCR Not Detected (Not Detect.); Parainfluenza 1 PCR Not Detected (Not Detect.); Parainfluenza 2 PCR Not Detected (Not Detect.); Parainfluenza 3 PCR Not Detected (Not Detect.); Parainfluenza 4 PCR Detected (Not Detect.); RSV PCR Not Detected (Not Detect.); Rhino/Enterovirus PCR Not Detected (Not Detect.); SARS-CoV-2 PCR Not Detected (Not Detect.)
--- NOTE | 2024-03-13 10:46 | P.PNIM_ITS ---
Subjective Subjective Date of Service: 03/13/24 Interval History: f/u on acute on chronic hypoxic resp failure d/t parainfluenza less sob, but persistent cough Physical Exam 2 Vital Signs: Vital Signs: Last Vital Signs Temp 97.4 F 03/13/24 07:44 Pulse 72 03/13/24 08:29 Resp 19 03/13/24 08:29 BP 133/62 03/13/24 07:44 Pulse Ox 95 03/13/24 07:44 O2 Del Method Room Air 03/13/24 07:44 O2 Flow Rate 3 03/13/24 03:38 Oxygen Flow Rate 3 03/12/24 10:13 BMI result Body Mass Index 22.1 Const: Other: General: AO X 3, no acute distress Resp: rhonchi, some wheezes but normal resp effort CVS: S1,S2,RRR GI: +BS, NT, no distention Skin: No rash Neuro: motor grossly intact Psych: appropriate affect Objective Data Active Medications Acetaminophen (Acetaminophen 325 Mg Tablet) 650 mg PO Q6H PRN PRN Reason: Pain, Mild (Pain Scale 1-3), fever or headache Last Admin: 03/12/24 15:10 Dose: 650 mg Documented By: DARÍO Albuterol/Ipratropium (Albuterol/Iprat 2.5/0.5mg 3 Ml Ampul.Neb) 3 ml INHALE RQ4H WHILE AWAKE [facility] Last Admin: 03/13/24 08:29 Dose: 3 ml Documented By: EUNICE Aspirin (Aspirin Enteric Coated 81 Mg Tablet.Dr) 81 mg PO DAILY [facility] Last Admin: 03/13/24 07:17 Dose: 81 mg Documented By: MOLLY Calcium Carbonate (Calcium Carbonate 750 Mg Tab.Chew) 750 mg PO Q4H PRN PRN Reason: Heartburn Clopidogrel Bisulfate (Clopidogrel Bisulfate 75 Mg Tablet) 75 mg PO DAILY [facility] Last Admin: 03/13/24 07:17 Dose: 75 mg Documented By: MOLLY Enoxaparin Sodium (Enoxaparin Sodium 40 Mg/0.4 Ml Syringe) 40 mg SUBCUT Q24H [facility] Last Admin: 03/12/24 15:29 Dose: 40 mg Documented By: DARÍO Famotidine (Famotidine 20 Mg Tablet) 20 mg PO BID [facility] Last Admin: 03/13/24 07:17 Dose: 20 mg Documented By: MOLLY Fluticasone/Umeclidinium/Vilanterol (Fluticasone/Umeclidinium/Vilanterol 200/62.5/25 Blst.W.Dev) 1 puff INHALE RDAILY [facility] Guaifenesin/Dextromethorphan (Guaifenesin Dm 200/20/10 Ml 10 Ml Syrup) 10 ml PO Q4H PRN PRN Reason: Cough Last Admin: 03/12/24 23:35 Dose: 10 ml Documented By: SUNG Azithromycin 500 mg/ Sodium (Chloride) 250 mls @ 125 mls/hr IV Q24H [facility] Magnesium Hydroxide (Milk Of Magnesia 30 Ml Oral.Susp) 30 ml PO DAILY PRN PRN Reason: Constipation Melatonin (Melatonin 3 Mg Tablet) 6 mg PO BEDTIME PRN PRN Reason: Insomnia Methylprednisolone Sodium Succinate (Methylprednisolone Sod Succ 40 Mg/Ml Vial) 40 mg IVPUSH Q12H [facility] Last Admin: 03/13/24 07:17 Dose: 40 mg Documented By: MOLLY Ondansetron HCl (Ondansetron Hcl 4 Mg/2 Ml Vial) 4 mg IVPUSH Q8H PRN PRN Reason: Nausea and Vomiting Sodium Chloride (0.9 % Sodium Chloride Flush 3 Ml Syringe) 3 ml IVFLUSH QSHIFT [facility] Last Admin: 03/13/24 07:17 Dose: 3 ml Documented By: MOLLY Tamsulosin HCl (Tamsulosin Hcl 0.4 Mg Capsule) 0.4 mg PO BEDTIME [facility] Last Admin: 03/12/24 19:35 Dose: 0.4 mg Documented By: SUNG Labs 03/12/24 12:02 03/12/24 12:02 Labs: Laboratory Results - last 24 hr 03/12/24 03/12/24 03/12/24 12:02 12:08 15:42 MCV 93.4 MCH 30.2 MCHC 32.3 RDW 14.3 Plt Count 255 MPV 10.3 Immature Gran % (Auto) 0.8 H Neut % (Auto) 81.2 H Lymph % (Auto) 5.6 L Hudson % (Auto) 12.0 H Eos % (Auto) 0.1 Baso % (Auto) 0.3 Lymph # (Auto) 0.5 L Hudson # (Auto) 1.1 Eos # (Auto) 0.0 Baso # (Auto) 0.0 Abs Immat Gran (auto) 0.07 H Absolute Neuts (auto) 7.6 Absolute Nucleated RBC 0.000 Nucleated RBC % (auto) 0.0 VBG pH 7.51 H VBG pCO2 37 VBG pO2 93 VBG HCO3 30 H VBG O2 Saturation 99.0 VBG Base Excess 6.9 Anion Gap 11 L Estim Creat Clear Calc 60.2 Estimated GFR > 60 Random Glucose 114 Lactic Acid 1.1 Calcium 8.6 Total Bilirubin 0.3 Direct Bilirubin 0.1 AST 18 ALT 7 Alkaline Phosphatase 54 Troponin I High Sens 3.4 B-Natriuretic Peptide 14 Total Protein 7.1 Albumin 3.5 Procalcitonin 0.11 Respiratory Panel Stock See Note Adenovirus (Rapid PCR) Not Detected B.pert (TEM-PCR) Not Detected B.parapertussis DNA PCR Not Detected C. pneumoniae DNA (PCR) Not Detected Coronavirus OC43 (PCR) Not Detected Coronavirus HKU1 (PCR) Not Detected Coronavirus 229E (PCR) Not Detected Coronavirus NL63 (PCR) Not Detected Human Metapneumovir PCR Not Detected Influenza A (RT-PCR) Not Detected Influenza Type A (PCR) NEGATIVE Influenza B (RT-PCR) Not Detected Influenza Type B (PCR) NEGATIVE M. pneumoniae (PCR) Not Detected Parainfluenza 1 (PCR) Not Detected Parainfluenza 2 (PCR) Not Detected Parainfluenza 3 (PCR) Not Detected Parainfluenza 4 (PCR) Detected A RSV (PCR) Not Detected RSV RNA Qual (PCR) NEGATIVE Entero/Rhino (PCR) Not Detected SARS-CoV-2 RNA (RT-PCR) NEGATIVE Not Detected Assessment and Plan (1) Respiratory failure with hypoxia: Status: Acute (2) Parainfluenza infection: Status: Acute Plan Pt is a 78-year-old male with a PMH significant for?COPD with chronic hypoxemic respiratory failure on 2-3L home O2, peripheral artery disease, AAA, GERD, BPH, and chronic anemia who presents to the ED with?increased fatigue, weakness, and cough x2-3 days. Pt will be admitted to the hospital treatment and further evaluation of acute on chronic hypoxic respiratory failure in the setting of acute COPD exacerbation. Acute on chronic hypoxic respiratory in the setting of COPD exacerbation trigered by Paraninfluenza virus -O2 as needed -symptomatic tratment -Bronchodilatos -corticosteroid --no indication for Abx at this time Peripheral artery disease with claudication Continue aspirin, Plavix GERD Omeprazole, famotidine BPH Continue tamsulosin Chronic anemia Stable, at baseline Full Code DVT Prophylaxis: Lovenox need for inpt: acute hypoxia needing more O2 Quality Stroke Does the patient have a stroke diagnosis?: No VTE Prior VTE?: No VTE Risk Level:: Medical - moderate - high VTE Device Contraindication: Treatment Not Indicated VTE Drug Contraindication: N/A - Med Ordered
[2024-03-13] MEDS: Azithromycin 500 MG in 0.9 % Sodium Chloride 250 ML 125 MG IV (11:41)
[2024-03-13] MEDS: Fluticasone/Umeclidinium/Vilanterol 200/62.5/25 BLST.W.DEV 1 PUFF INHALE (11:43)
[2024-03-13] MEDS: guaiFENesin DM 200/20/10 ML 10 ML SYRUP PO ×3 (11:45→20:41)
--- NOTE | 2024-03-13 13:33 | MHC.CM.PN ---
pt lives with son is on home 02 son will transport home pt had no previous services dc plan home w/son n/s
[2024-03-13] MEDS: Enoxaparin Sodium 40 MG/0.4 ML SYRINGE SUBCUT (16:57)
[2024-03-13] MEDS: Tamsulosin HCL 0.4 MG CAPSULE PO (20:41)
[2024-03-14] VITALS (11 sets, daily range): BP systolic 140–178; BP diastolic 70–79; PULSE 71–94; RESP 16–18; TEMP 36.4–37.1; O2SAT 93–98
[2024-03-14] MEDS: guaiFENesin DM 200/20/10 ML 10 ML SYRUP PO ×3 (01:15→23:11)
[2024-03-14] MEDS: Albuterol/Iprat 2.5/0.5MG 3 ML AMPUL.NEB INHALE ×4 (07:26→18:45)
[2024-03-14] MEDS: Fluticasone/Umeclidinium/Vilanterol 200/62.5/25 BLST.W.DEV 1 PUFF INHALE (07:26)
--- NOTE | 2024-03-14 08:17 | P.PNIM_ITS ---
Subjective Subjective Date of Service: 03/14/24 Interval History: f/u on acute on chronic hypoxic resp failure d/t parainfluenza no sob,but still coughing Physical Exam 2 Vital Signs: Vital Signs: Last Vital Signs Temp 97.6 F 03/14/24 08:00 Pulse 71 03/14/24 08:00 Resp 17 03/14/24 08:00 BP 158/70 H 03/14/24 08:00 Pulse Ox 98 03/14/24 08:00 O2 Del Method Aerosol Mask 03/14/24 08:00 O2 Flow Rate 3 03/14/24 08:00 Oxygen Flow Rate 3 03/12/24 10:13 BMI result Body Mass Index 22.1 Const: Other: General: AO X 3, no acute distress Resp: rhonchi, some wheezes but normal resp effort CVS: S1,S2,RRR GI: +BS, NT, no distention Skin: No rash Neuro: motor grossly intact Psych: appropriate affect Objective Data Active Medications Acetaminophen (Acetaminophen 325 Mg Tablet) 650 mg PO Q6H PRN PRN Reason: Pain, Mild (Pain Scale 1-3), fever or headache Last Admin: 03/12/24 15:10 Dose: 650 mg Documented By: DARÍO Albuterol/Ipratropium (Albuterol/Iprat 2.5/0.5mg 3 Ml Ampul.Neb) 3 ml INHALE RQ4H WHILE AWAKE [facility] Last Admin: 03/14/24 07:26 Dose: 3 ml Documented By: TOM Aspirin (Aspirin Enteric Coated 81 Mg Tablet.Dr) 81 mg PO DAILY [facility] Last Admin: 03/13/24 07:17 Dose: 81 mg Documented By: MOLLY Calcium Carbonate (Calcium Carbonate 750 Mg Tab.Chew) 750 mg PO Q4H PRN PRN Reason: Heartburn Clopidogrel Bisulfate (Clopidogrel Bisulfate 75 Mg Tablet) 75 mg PO DAILY [facility] Last Admin: 03/13/24 07:17 Dose: 75 mg Documented By: MOLLY Enoxaparin Sodium (Enoxaparin Sodium 40 Mg/0.4 Ml Syringe) 40 mg SUBCUT Q24H [facility] Last Admin: 03/13/24 16:57 Dose: 40 mg Documented By: TAJ Famotidine (Famotidine 20 Mg Tablet) 20 mg PO BID [facility] Last Admin: 03/13/24 20:40 Dose: 20 mg Documented By: SUNG Fluticasone/Umeclidinium/Vilanterol (Fluticasone/Umeclidinium/Vilanterol 200/62.5/25 Blst.W.Dev) 1 puff INHALE RDAILY [facility] Last Admin: 03/14/24 07:26 Dose: 1 puff Documented By: TOM Guaifenesin/Dextromethorphan (Guaifenesin Dm 200/20/10 Ml 10 Ml Syrup) 10 ml PO Q4H PRN PRN Reason: Cough Last Admin: 03/14/24 01:15 Dose: 10 ml Documented By: SUNG Azithromycin 500 mg/ Sodium (Chloride) 250 mls @ 125 mls/hr IV Q24H [facility] Last Infusion: 03/13/24 13:46 Dose: Infused Documented By: MOLLY Magnesium Hydroxide (Milk Of Magnesia 30 Ml Oral.Susp) 30 ml PO DAILY PRN PRN Reason: Constipation Melatonin (Melatonin 3 Mg Tablet) 6 mg PO BEDTIME PRN PRN Reason: Insomnia Methylprednisolone Sodium Succinate (Methylprednisolone Sod Succ 40 Mg/Ml Vial) 40 mg IVPUSH Q12H [facility] Last Admin: 03/13/24 20:40 Dose: 40 mg Documented By: SUNG Ondansetron HCl (Ondansetron Hcl 4 Mg/2 Ml Vial) 4 mg IVPUSH Q8H PRN PRN Reason: Nausea and Vomiting Sodium Chloride (0.9 % Sodium Chloride Flush 3 Ml Syringe) 3 ml IVFLUSH QSHIFT [facility] Last Admin: 03/13/24 20:40 Dose: 3 ml Documented By: SUNG Tamsulosin HCl (Tamsulosin Hcl 0.4 Mg Capsule) 0.4 mg PO BEDTIME [facility] Last Admin: 03/13/24 20:41 Dose: 0.4 mg Documented By: SUNG Labs 03/12/24 12:02 03/12/24 12:02 Labs: Laboratory Results - last 24 hr 03/12/24 15:42 Respiratory Panel Stock See Note Adenovirus (Rapid PCR) Not Detected B.pert (TEM-PCR) Not Detected B.parapertussis DNA PCR Not Detected C. pneumoniae DNA (PCR) Not Detected Coronavirus OC43 (PCR) Not Detected Coronavirus HKU1 (PCR) Not Detected Coronavirus 229E (PCR) Not Detected Coronavirus NL63 (PCR) Not Detected Human Metapneumovir PCR Not Detected Influenza A (RT-PCR) Not Detected Influenza B (RT-PCR) Not Detected M. pneumoniae (PCR) Not Detected Parainfluenza 1 (PCR) Not Detected Parainfluenza 2 (PCR) Not Detected Parainfluenza 3 (PCR) Not Detected Parainfluenza 4 (PCR) Detected A RSV (PCR) Not Detected Entero/Rhino (PCR) Not Detected SARS-CoV-2 RNA (RT-PCR) Not Detected Microbiology Microbiology Results: Microbiology 03/12/24 12:00 Blood Culture - Preliminary Blood - Venous No growth after 24 hours. 03/12/24 12:08 Blood Culture - Preliminary Blood - Venous No growth after 24 hours. Assessment and Plan (1) Respiratory failure with hypoxia: Status: Acute (2) Parainfluenza infection: Status: Acute Plan 78-year-old male with a PMH significant for?COPD with chronic hypoxemic respiratory failure on 2-3L home O2, peripheral artery disease, AAA, GERD, BPH, and chronic anemia who presents to the ED with?increased fatigue, weakness, and cough x2-3 days. Pt will be admitted to the hospital treatment and further evaluation of acute on chronic hypoxic respiratory failure in the setting of acute COPD exacerbation. Acute on chronic hypoxic respiratory in the setting of COPD exacerbation trigered by Paraninfluenza virus -O2 (he is on home O2) -symptomatic tratment -Bronchodilatos -corticosteroid --no indication for Abx at this time -robitussin + tessalon Peripheral artery disease with claudication Continue aspirin, Plavix GERD Omeprazole, famotidine BPH Continue tamsulosin Chronic anemia Stable, at baseline Full Code DVT Prophylaxis: Lovenox need for inpt: acute hypoxia needing more O2 Quality Stroke Does the patient have a stroke diagnosis?: No VTE Prior VTE?: No VTE Risk Level:: Medical - moderate - high VTE Device Contraindication: Treatment Not Indicated VTE Drug Contraindication: N/A - Med Ordered
[2024-03-14] MEDS: methylPREDNISolone Sod Succ 40 MG/ML VIAL IVPUSH ×2 (09:14→20:19)
[2024-03-14] MEDS: Aspirin Enteric Coated 81 MG TABLET.DR PO (09:14)
[2024-03-14] MEDS: Clopidogrel Bisulfate 75 MG TABLET PO (09:14)
[2024-03-14] MEDS: Benzonatate 100 MG CAPSULE PO ×3 (09:14→20:19)
[2024-03-14] MEDS: Famotidine 20 MG TABLET PO ×2 (09:14→20:19)
[2024-03-14] MEDS: Azithromycin 500 MG in 0.9 % Sodium Chloride 250 ML 125 MG IV (12:40)
[2024-03-14] MEDS: Enoxaparin Sodium 40 MG/0.4 ML SYRINGE SUBCUT (15:12)
[2024-03-14] MEDS: 0.9 % Sodium Chloride Flush 3 ML SYRINGE IVFLUSH ×2 (15:14→20:22)
[2024-03-14] MEDS: Tamsulosin HCL 0.4 MG CAPSULE PO (20:19)
[2024-03-15 03:01] VITALS: BP 155/73; PULSE 81; RESP 16; TEMP 36.8; O2SAT 95
[2024-03-15] MEDS: guaiFENesin DM 200/20/10 ML 10 ML SYRUP PO (05:42)
--- NOTE | 2024-03-15 07:06 | PM.DS ---
DS: Providers Provider Date of Service: 03/15/24 Date of admission: 03/12/24 14:24 Date of discharge: 03/15/24 Primary care physician: Go Zamora MD DS: Diagnosis Discharge Diagnosis (1) Respiratory failure with hypoxia: Status: Acute (2) Parainfluenza infection: Status: Acute DS: Summary Hospital Course Hospital Course: admission hpi Chief Complaint: Cough, weakness Pt is a 78-year-old male with a PMH significant for?COPD with chronic hypoxemic respiratory failure on 2-3L home O2, peripheral artery disease, AAA, GERD, BPH, and chronic anemia who presents to the ED with?increased fatigue, weakness, and cough x2-3 days. Cough has been mostly non-productive and worseing since yesterday. Has also not been eating or drinking much the past few days. Chest tightness associated with cough. Patient denies significant shortness of or difficulty breathing. No chest pressure. Denies fever, chills, nausea, vomiting, abdominal pain. EMS report found patient satting at 83% on 3 L and in tripod position. In the ED pt with elevated temp of 100.4 degrees, tachycardic up to 123, tachypnea up to 30, and desatting into the 80s on 3L O2. Labs were significant for VB pH 7.51, pCO2 37, and bicarb 30. Otherwise grossly unremarkable and baseline for patient. No leukocytosis. Stable normocytic anemia of 11.4/35.3. No significant electrolyte abnormalities. Renal and hepatic function WNL. Lactic acid WNL at 1.1. Troponin WNL at 3.4. Tested negative for flu, RSV, and COVID. CXR pending. EKG demonstrated sinus tachycardia of 118 without evidence of significant ST elevations or depressions. Pt was treated with DuoNebs, Solu-Medrol, IVF, azithromycin, and ceftriaxone. Pt will be admitted to the hospital treatment and further evaluation of acute on chronic hypoxic respiratory failure in the setting of acute COPD exacerbation. hospital course: patient presented with acute on chronic hypoxic respiratory failure due exacerbation of copd which is precipitated by Parainfluenza virus. He was treated with bronchodilators by neb, IV steroid, cough medication and empiric azithromycin. He's overall doing much better, Hypoxia has resolved and his maintained on his home O2 at 2 liters by nasal canula. He is being discharged home with Prednisone for a total of 5 days of steroid, cough syrup Peripheral artery disease with claudication Continue aspirin, Plavix GERD Omeprazole, famotidine BPH Continue tamsulosin Chronic anemia Stable, at baseline Time Attestation Discharge Coordination Time (in mins): 35 Quality: Safe Use of Opioids Does Pt have an Active Cancer Diagnosis on the Problem List?: No Quality: Stroke Does the patient have a stroke diagnosis?: No Physical Exam Vital Signs: Vital Signs: Last Vital Signs Temp 98.2 F 03/15/24 03:01 Pulse 81 03/15/24 03:01 Resp 16 03/15/24 03:01 BP 155/73 H 03/15/24 03:01 Pulse Ox 95 03/15/24 03:01 O2 Del Method Nasal Cannula 03/15/24 03:01 O2 Flow Rate 3 03/15/24 03:01 Oxygen Flow Rate 3 03/12/24 10:13 BMI result Body Mass Index 22.1 DS: Data Data Completed and Pending Labs on day of discharge: Preliminary micro results at discharge 03/12/24 12:00 Blood Culture - Preliminary Blood - Venous No growth after 48 hours. 03/12/24 12:08 Blood Culture - Preliminary Blood - Venous No growth after 48 hours. Discharge Plan Discharge Anticipated Discharge Date/Time: 03/15/24 07:07 Patient Disposition: Home, Self-Care Discharge Diagnosis: Acute on chronic hypoxic respiratory failure due to parinfluenza Referrals: Go Zamora MD [Primary Care Provider] - 1 Week Discharge Medications: New azithromycin 250 mg Tablet 250 mg PO DAILY Qty: 1 0RF Rx Instructions: next dose 03/16/24 prednisone 20 mg Tablet 40 mg PO DAILY Qty: 2 0RF Rx Instructions: next dose 03/16/24 Continued tamsulosin [Flomax] 0.4 mg capsule 0.4 mg PO BEDTIME Qty: 90 2RF ipratropium-albuterol 0.5 mg-3 mg(2.5 mg base)/3 mL solution for nebulization 3 ml inhalation QID PRN (Reason: for wheezing) Qty: 180 0RF albuterol sulfate [Ventolin HFA] 90 mcg/actuation HFA aerosol inhaler 2 puff inhalation Q6H PRN (Reason: Shortness Of Breath Or Wheezing) aspirin 81 mg Tablet,Delayed Release (Dr/Ec) 81 mg PO DAILY (DME) nebulizers Misc See Rx Instructions .Route Qty: 1 0RF Rx Instructions: As directed famotidine 20 mg tablet 20 mg PO BID Trelegy Ellipta 200-62.5-25 mcg blister with device 1 ea inhalation DAILY clopidogrel 75 mg tablet 75 mg PO DAILY Discharge Orders: Discharge Order (Routine); Ordered 03/15/24 Ordered By: Aubrey Laureano Diet: Advance to usual diet Activity on Discharge: As tolerated Stand Alone Forms: Patient Portal Discharge page Print Language: [place] Care Plan Goals: recovery Health Concerns: recovery from Parainfluenza causing copd exacerbation and acute on chronic hypoxic respiratory failure Plan of Treatment: take azithromycin as recommended take Prednisone as recommended Assessment: see above Discharge Date/Time: 03/15/24 11:42
[2024-03-15 07:35] VITALS: BP 160/76; PULSE 78; RESP 18; TEMP 36.3; O2SAT 95
[2024-03-15 07:43] VITALS: PULSE 81; RESP 16; O2SAT 98
[2024-03-15] MEDS: Albuterol/Iprat 2.5/0.5MG 3 ML AMPUL.NEB INHALE (07:43)
[2024-03-15] MEDS: Fluticasone/Umeclidinium/Vilanterol 200/62.5/25 BLST.W.DEV 1 PUFF INHALE (07:56)
[2024-03-15] MEDS: Aspirin Enteric Coated 81 MG TABLET.DR PO (08:22)
[2024-03-15] MEDS: Benzonatate 100 MG CAPSULE PO (08:22)
[2024-03-15] MEDS: predniSONE 20 MG TABLET 40 MG PO (08:22)
[2024-03-15] MEDS: Clopidogrel Bisulfate 75 MG TABLET PO (08:22)
[2024-03-15] MEDS: Azithromycin 250 MG TABLET PO (08:22)
[2024-03-15] MEDS: Famotidine 20 MG TABLET PO (08:22)
[2024-03-15] MEDS: 0.9 % Sodium Chloride Flush 3 ML SYRINGE IVFLUSH (08:24)
--- NOTE | 2024-03-15 11:59 | MHC.CM.PN ---
PT TO DC HOME TODAY WITH NO SERVICES VIA FAMILY TRANSPORT
== END 2024-03-15 11:42 | disposition home or self-care (01) | DRG 192 ==
LOC: HO.ED 10:51 → HO.EDOVER 14:29 → HO.S3 14:38
PROVIDERS: Admitting Provider Student in an Organized Health Care Education/Training Program; Emergency Provider Emergency Medicine Emergency Medical Services; PCP Internal Medicine; Visit Provider Internal Medicine
DX: J43.9 Emphysema, unspecified (principal); B97.89 Other viral agents as the cause of diseases classified elsewhere; I73.9 Peripheral vascular disease, unspecified; N40.0 Benign prostatic hyperplasia without lower urinary tract symptoms; Z87.891 Personal history of nicotine dependence; Z23 Encounter for immunization; Z99.81 Dependence on supplemental oxygen; Z79.82 Long term (current) use of aspirin; Z79.02 Long term (current) use of antithrombotics/antiplatelets; Z79.899 Other long term (current) drug therapy
CPT/HCPCS: 0241U; 36415; 71045; 80048; 80076; 82803; 83605; 83880; 84145; 84484; 85025; 87040; 87633; 90656; 93005; 94640; 99285; J0456; J0696; J1650; J2919

== ENCOUNTER → 2024-03-12 11:13 | Outpatient (BNV) | payer MEDICARE, SELFPAY | PROVIDERS: Admitting Provider Student in an Organized Health Care Education/Training Program; Emergency Provider Emergency Medicine Emergency Medical Services; Visit Provider Internal Medicine | DX: R06.02 Shortness of breath (principal) | CPT/HCPCS: 93010 ==

== ENCOUNTER → 2024-03-12 14:24 | Outpatient (BNV) | payer MEDICARE, SELFPAY | PROVIDERS: Admitting Provider Student in an Organized Health Care Education/Training Program; Emergency Provider Emergency Medicine Emergency Medical Services; Visit Provider Internal Medicine | DX: J96.91 Respiratory failure, unspecified with hypoxia (principal); B34.8 Other viral infections of unspecified site; I73.9 Peripheral vascular disease, unspecified; K21.9 Gastro-esophageal reflux disease without esophagitis | CPT/HCPCS: 99223; 99232; 99239 ==

== ENCOUNTER 2024-03-31 09:31 | Outpatient (AMB) | payer MEDICARE, SELFPAY ==
--- NOTE | 2024-03-31 09:35 | MHC.OFFVIS ---
Intake Visit Reasons: 1 yr follow up s/p Arterial US 02/19/24 Intake Note: Patient presents for arterial US 02/19/24. No complaints. Accompanied by: Son Allergies No Known Allergies Allergy (Verified 03/31/24 09:36) HPI HPI 1 yr follow up s/p Arterial US 02/19/24: Details: Very pleasant 78-year-old gentleman presents for routine surveillance follow-up regarding abdominal aortic aneurysm. This was discovered on a CT scan. He was actually most recently hospitalized for pneumonia. Of note he has had prior lower extremity endovascular treatment by Dr. Feliciano many years in the past. He remains O2 dependent. He reports that he can walk about 100 ft at most and basically is a sedentary lifestyle. He does do activities around the house. He now presents for follow-up with surveillance ultrasound. [facility] Medical History PVD (peripheral vascular disease) with claudication Elevated cholesterol Personal history of COVID-19 BRANDAN (generalized anxiety disorder) Oxygen dependent Urinary retention Abdominal pain Respiratory failure with hypoxia COPD (chronic obstructive pulmonary disease) Mucus plugging of bronchi PAD (peripheral artery disease) AAA (abdominal aortic aneurysm) without rupture Emphysema lung Surgical History Hernia, ventral (04/19/23) Hx of hand surgery (~1984) Social History Household Members: Children Household Members Other:: Danielito Wright Housing: House Are you a primary care administrative tech to a significant other at home: No Do you presently have visiting nurse or other home services: No Alcohol intake: former Patient Tobacco Use Status: Former Tobacco user Tobacco use type: Cigarette Second Hand Smoke Exposure: No service: No Review of Systems Const All systems reviewed & are unremarkable except as noted in HPI and below Reports no additional complaints ENT Reports Normal hearing present Card Denies chest pain, Denies chest pain at rest, Denies chest pain with activity and Denies pedal edema Resp Denies cough GI Denies abdominal pain Musc Denies abnormal gait, Denies muscle cramps and Denies radiating pain into limb Skin/Breast Denies skin ulcer and Denies wounds Neuro Reports Normal hearing present and Denies abnormal gait Psych Reports no additional complaints Physical Exam Const General: cooperative, healthy appearing and comfortable Orientation/consciousness: oriented to person, oriented to place and oriented to time HEENT Head: Yes normal to inspection Neck Neck: Yes normal visual inspection Carotids: no bruits Chest Chest palpation & inspection: normal inspection of the chest Resp Effort & Inspection: normal respiratory effort and able to speak in complete sentences Auscultation: clear to auscultation bilaterally, no crackles, no rales, no rhonchi and no wheezes Cardio Rate: regular rate Rhythm: regular rhythm Heart sounds: S1 normal heart sound present and S2 normal heart sound present Bruits: no carotid bruits Peripheral pulses: Peripheral pulses 2+ throughout GI Inspection: Yes normal to inspection Skin Wounds: no wounds Hair: normal Neuro General: oriented to person, oriented to place and oriented to time Cranial nerves: Yes CN's II-XII intact bilaterally and Yes Normal hearing present Cognition (Neuro): normal cognition Motor exam (neuro): 5/5 motor strength present throughout Extrem Other: venous exam: No significant superficial varicosities or spider telangiectasias, minimal edema General: No clubbing, No cyanosis and No edema Psych Appearance: grossly normal Mental Status: mental status grossly normal Speech and movement: Normal speech and movement present Results Reviewed Results Reviewed: Noninvasive aortic testing dated 02/19/2024 demonstrates aortic aneurysm of 4.1 cm. Of note previous CT scan demonstrates 4.5 which would be more of the true measure. Written report and images were reviewed. Assessment & Plan Assessment & Plan (1) AAA (abdominal aortic aneurysm) without rupture: Code(s): I71.40 - Abdominal aortic aneurysm, without rupture, unspecified Category: Medical Qualifiers: Abdominal aorta location: infrarenal aorta Qualified Code(s): I71.43 - Infrarenal abdominal aortic aneurysm, without rupture Plan: In short patient has radiologic evidence of a AAA on truly 4.[address] scan. We have discussed the pathophysiology of aortic aneurysms and the risk of ruptures. We have discussed rupture risk based on size. In addition we have discussed conservative measures and risk factor modification for prevention of increase in size of the aneurysm. the patient is scheduled for surveillance follow-up in approximately 1 year. Thank you for allowing us to participate in the care of this patient (2) PAD (peripheral artery disease): Comment: Left SFA stent - unknown date Dr. Feliciano Code(s): I73.9 - Peripheral vascular disease, unspecified Category: Medical Plan: At the current time it appears to be stable. Would not intervene unless it is critical limb ischemia. He will follow up with us in approximately 1 year's time for his aortic status (3) Hernia, ventral: Onset Date: 04/19/23 Comment: Dr. Shaun Stern Code(s): K43.9 - Ventral hernia without obstruction or gangrene Category: Surgical Qualifiers: Obstruction and gangrene presence: without obstruction or gangrene Qualified Code(s): K43.9 - Ventral hernia without obstruction or gangrene Plan: We will reach out to Dr. Mirza office to follow-up on scheduling of his surgery. Orders: Orders US abdominal aortic aneurysm 1 Year I71.43 - Infrarenal abdominal aortic aneurysm, without rupture Coding Level of Care Code Est Pt Level 4 (11745) Complex EM visit Add On G2211 Diagnoses Infrarenal abdominal aortic aneurysm (AAA) without rupture I71.43 Abdominal aorta location: infrarenal aorta PAD (peripheral artery disease) I73.9 Ventral hernia without obstruction or gangrene K43.9 Obstruction and gangrene presence: without obstruction or gangrene
--- OUTSIDE RECORDS SUMMARY | 2024-03-31 09:44 | XMS_ITS | Clinical Summary ---
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 Active 11-16 00:00: 00 [facility] (CURRENT) USE OF INHALED STEROIDS Active 11-16 00:00: 00 MACHINE INKER (CURRENT) USE OF ANTITHROMBOT ICS/ANTIPLAT ELETS Active [...] 11-14 00:00: 00 11-20 23:59 :00 No [id number] 1 tablet DAILY 1 tablet DAILY (route: oral) Med Classific ation: Anti-Infe ctive Agents prednisone 20 mg tablet 11-14 00:00: 00 11-18 23:59 :00 No [id number] 2 tablet DAILY 2 tablet DAILY (route: oral) Med Classific ation: Endocrine clopidogrel 75 mg tablet 11-09 00:00: 00 Yes [id number] Per instruc tions EVERY DAY Per instructio ns EVERY DAY (route: oral) Med Classific ation: Hematolog ical Agents Trelegy Ellipta 100 mcg-62.5 mcg-25 mcg powder for inhalation 11-06 00:00: 00 Yes [id number] 1 inhalat ion DAILY 1 inhalation DAILY (route: inhalation ) Med Classific ation: Respirato ry Therapy Agents Ventolin HFA 90 mcg/actuati on aerosol inhaler 11-06 00:00: 00 Yes [id number] Per instruc tions EVERY 6 HOURS Per instructio ns EVERY 6 HOURS (route: inhalation ) Med Classific ation: Respirato ry Therapy Agents aspirin 81 mg tablet,simi yed release 11-16 00:00: 00 Yes [id number] 1 tablet DAILY 1 tablet DAILY (route: oral) Med Classific ation: Hematolog ical Agents azithromyci n 500 mg tablet 11-21 00:00: 00 Yes [id number] 1 tablet 3 TIMES A WEEK 1 tablet 3 TIMES A WEEK (route: oral) Med Classific ation: Anti-Infe ctive Agents guaifenesin ER 600 mg tablet, extended release 12 hr 11-16 00:00: 00 Yes [id number] 1 tablet EVERY 12 HOURS 1 tablet EVERY 12 HOURS (route: oral) Med Classific ation: Respirato ry Therapy Agents O2 - OXYGEN 11-16 00:00: 00 Yes [id number] 3 Liter DAILY 3 Liter DAILY (route: Oxygen) Med Classific ation: Medical Oxygen benzonatate 200 mg capsule 11-29 00:00: 00 12-06 23:59 :00 No [id number] for cough 1 capsule DAILY 1 capsule DAILY (route: oral) Med Classific ation: Respirato ry Therapy Agents Mucinex DM 30 mg-600 mg tablet,exte nded release 12 hr 2022-03 00:00: 00 Yes [id number] 1 tablet EVERY 12 HOURS 1 tablet [...] CARE WILL BE ESTABLISHED THAT MEETS PATIENT'S ASSISTED NEEDS AND INCLUDES PATIENT GOAL FOR HOME [...] End Date/Time Encounter Type Admission Type Attending [facility] Care Department Encounter ID Discharge Date Discharge Status Discharge Condition Discharge Reason Percent Goals Met 2022-11-16 00:00:00 2023-01-10 00:00:00 Outpatient NEW ADMISSION JAMES WHITESIDE [facility] [id number] 2023-01-10 00:00:00 DISCHARGE TO HOME OR SELF CARE INDEPENDEN T WITH USE OF ASSISTIVE DEVICE GOALS MET ( ONLY) 93.55
--- OUTSIDE RECORDS SUMMARY | 2024-03-31 09:45 | XMS_ITS | Clinical Summary ---
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 (CURRENT) USE OF ASPIRIN Active 11-16 00:00: 00 [facility] (CURRENT) USE OF INHALED STEROIDS Active 11-16 00:00: 00 GRANITE POLISHER MACHINE (CURRENT) USE OF ANTITHROMBOT ICS/ANTIPLAT ELETS Active [...] 11-14 00:00: 00 11-20 23:59 :00 No [id number] 1 tablet DAILY 1 tablet DAILY (route: oral) Med Classific ation: Anti-Infe ctive Agents prednisone 20 mg tablet 11-14 00:00: 00 11-18 23:59 :00 No [id number] 2 tablet DAILY 2 tablet DAILY (route: oral) Med Classific ation: Endocrine clopidogrel 75 mg tablet 11-09 00:00: 00 Yes [id number] Per instruc tions EVERY DAY Per instructio ns EVERY DAY (route: oral) Med Classific ation: Hematolog ical Agents Trelegy Ellipta 100 mcg-62.5 mcg-25 mcg powder for inhalation 11-06 00:00: 00 Yes [id number] 1 inhalat ion DAILY 1 inhalation DAILY (route: inhalation ) Med Classific ation: Respirato ry Therapy Agents Ventolin HFA 90 mcg/actuati on aerosol inhaler 11-06 00:00: 00 Yes [id number] Per instruc tions EVERY 6 HOURS Per instructio ns EVERY 6 HOURS (route: inhalation ) Med Classific ation: Respirato ry Therapy Agents aspirin 81 mg tablet,simi yed release 11-16 00:00: 00 Yes [id number] 1 tablet DAILY 1 tablet DAILY (route: oral) Med Classific ation: Hematolog ical Agents azithromyci n 500 mg tablet 11-21 00:00: 00 Yes [id number] 1 tablet 3 TIMES A WEEK 1 tablet 3 TIMES A WEEK (route: oral) Med Classific ation: Anti-Infe ctive Agents guaifenesin ER 600 mg tablet, extended release 12 hr 11-16 00:00: 00 Yes [id number] 1 tablet EVERY 12 HOURS 1 tablet EVERY 12 HOURS (route: oral) Med Classific ation: Respirato ry Therapy Agents O2 - OXYGEN 11-16 00:00: 00 Yes [id number] 3 Liter DAILY 3 Liter DAILY (route: Oxygen) Med Classific ation: Medical Oxygen benzonatate 200 mg capsule 11-29 00:00: 00 12-06 23:59 :00 No [id number] for cough 1 capsule DAILY 1 capsule DAILY (route: oral) Med Classific ation: Respirato ry Therapy Agents Mucinex DM 30 mg-600 mg tablet,exte nded release 12 hr 2022-03 00:00: 00 Yes [id number] 1 tablet EVERY 12 HOURS 1 tablet [...] CARE WILL BE ESTABLISHED THAT MEETS PATIENT'S RESIDENTIAL NEEDS AND INCLUDES PATIENT GOAL FOR HOME [...] End Date/Time Encounter Type Admission Type Attending [facility] Care Department Encounter ID Discharge Date Discharge Status Discharge Condition Discharge Reason Percent Goals Met 2022-11-16 00:00:00 2023-01-10 00:00:00 Outpatient NEW ADMISSION JAMES WHITESIDE [facility] [id number] 2023-01-10 00:00:00 DISCHARGE TO HOME OR SELF CARE INDEPENDEN T WITH USE OF ASSISTIVE DEVICE GOALS MET ( ONLY) 93.55
== END 2024-03-31 10:09 | disposition home or self-care (01) ==
PROVIDERS: PCP Internal Medicine; Visit Provider Surgery Vascular Surgery
DX: I71.43 Infrarenal abdominal aortic aneurysm, without rupture (principal); I73.9 Peripheral vascular disease, unspecified; K43.9 Ventral hernia without obstruction or gangrene
CPT/HCPCS: 99214; G2211

== ENCOUNTER → 2024-03-31 09:31 | Outpatient (BNVA) | payer MEDICARE, SELFPAY | PROVIDERS: PCP Internal Medicine; Visit Provider Surgery Vascular Surgery | DX: I71.43 Infrarenal abdominal aortic aneurysm, without rupture (principal); I73.9 Peripheral vascular disease, unspecified; K43.9 Ventral hernia without obstruction or gangrene | CPT/HCPCS: 99212 ==

== ENCOUNTER 2024-04-06 10:22 | Outpatient (AMB) | payer MEDICARE, MEDICAID, SELFPAY ==
[2024-04-06 10:48] VITALS: BP 140/64; PULSE 97; O2SAT 90
--- NOTE | 2024-04-06 10:48 | MHC.OFFVIS ---
Vital Signs 04/06/24 10:48 Height 5 ft 9 in BP 140/64 H Blood Pressure Location Lt brachial Position Sitting Pulse 97 Pulse Source Pulse Oximeter Pulse Oximetry (%) 90 L Oxygen Delivery Method Nasal Cannula Oxygen Flow Rate 2 Intake Visit Reasons: COPD Intake Note: pt is here for follow up and was in for 5 days with pneumonia, and states only slight cough in am and than he is ok. 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: No Allergies No Known Allergies Allergy (Verified 04/06/24 11:21) Medication List - Last Reconciled 04/06/24 by Valerie Geronimo MD albuterol sulfate 90 mcg/actuation (Ventolin HFA) 2 puffs inhalation Q6H PRN aspirin 81 mg PO DAILY clopidogrel 75 mg PO DAILY famotidine 20 mg PO BID hptfixbemfg-ietggkrvo-qygmnufu 200-62.5-25 mcg (Trelegy Ellipta) 1 ea inhalation DAILY ipratropium-albuterol 0.5 mg-3 mg(2.5 mg base)/3 mL 3 mL inhalation QID PRN nebulizers As directed tamsulosin (Flomax) 0.4 mg PO BEDTIME Do you need a note to return to daycare/school/sports/work: No HPI HPI COPD: Details: 78 YEARS OLD GENTLEMAN WITH ADVANCED CHRONIC OBSTRUCTIVE PULMONARY DISEASE, BRONCHIECTASIS ESPECIALLY IN THE LOWER LOBES WITH HISTORY OF MUCUS RETENTION, RECENTLY TREATED IN [facility] 1 WEEK OR AN ACUTE EXACERBATION OF COPD. NOW HE IS AT HIS BASELINE, HAS INTERMITTENT COUGH FINDS IT HARD TO CLEAR THE MUCUS. HE IS ON O2 2 L/MINUTE CONTINUOUSLY, ANXIOUSLY WANTS TO HAVE POC UNIT FOR PORTABILITY. HE QUIT SMOKING MANY YEARS AGO . HE IS ON TRELEGY ELLIPTA ONCE A DAY AND ALSO USES IPRATROPIUM-ALBUTEROL SOLUTION IN THE NEBULIZER 2 OR 3 TIMES A DAY. [facility] Medical History (Updated 04/06/24 @ 11:37 by Valerie Geronimo MD) Respiratory failure with hypoxia Bronchiectasis PVD (peripheral vascular disease) with claudication Elevated cholesterol Personal history of COVID-19 BRANDAN (generalized anxiety disorder) Oxygen dependent Urinary retention Abdominal pain COPD (chronic obstructive pulmonary disease) Mucus plugging of bronchi PAD (peripheral artery disease) AAA (abdominal aortic aneurysm) without rupture Emphysema lung Surgical History Hernia, ventral (04/19/23) Hx of hand surgery (~1984) Social History Household Members: Children Household Members Other:: Danielito Wright Housing: House Are you a primary inpatient care manager rn to a significant other at home: No Do you presently have visiting nurse or other home services: No Alcohol intake: former Patient Tobacco Use Status: Former Tobacco user Tobacco use type: Cigarette Second Hand Smoke Exposure: No service: No Review of Systems Const All systems reviewed & are unremarkable except as noted in HPI and below Eyes Reports no additional complaints ENT Reports no additional complaints Card Denies chest pain, Denies irregular heart rhythm, Denies leg edema and Reports dyspnea on exertion Resp Reports as per HPI and Reports dyspnea on exertion GI Reports constipation and Reports dyspepsia Reports no additional complaints Musc Reports other (GENERAL WEAKNESS) Skin/Breast Reports system reviewed and no additional complaints, except as documented Neuro Reports no additional complaints Psych Reports no additional complaints Physical Exam Vital Signs: Last Vital Signs Pulse 97 04/06/24 10:48 BP 140/64 H 04/06/24 10:48 Pulse Ox 90 L 04/06/24 10:48 Oxygen Delivery Method Nasal Cannula 04/06/24 10:48 Oxygen Flow Rate 2 04/06/24 10:48 Last Vital Signs Temp 97.8 F 01/30/23 08:38 Pulse 109 H 01/30/23 08:38 Resp 24 H 01/30/23 08:38 BP 131/68 01/30/23 08:38 Pulse Ox 94 01/30/23 08:38 O2 Del Method Nasal Cannula 01/30/23 08:38 O2 Flow Rate 3 01/30/23 08:38 BMI result Body Mass Index 23.9 Const General: comfortable (Except for shortness of breath during conversation), no acute distress, alert and awake Orientation/consciousness: patient oriented x3 HEENT Head: Yes normal to inspection General nose exam: No nasal polyps present and No nasal discharge present Face and sinus: Yes sinuses nontender Mouth: oropharynx normal (I DID NOT SEE ANY EXUDATES OR ANY EXCESSIVE MUCUS . ) Teeth and gingiva: edentulous Throat: Yes posterior oropharynx normal Eyes General: appearance normal, both eyes and all related structures Neck Neck: Yes normal visual inspection, Yes no lymphadenopathy, Yes trachea midline and Yes no JVD Thyroid: Thyroid normal Chest Chest palpation & inspection: normal inspection of the chest, normal palpation of entire chest wall and no tenderness Resp Other: PERCUSSION NOTE IS RESONANT, BREATH SOUNDS ARE VERY DISTANT, BUT EQUAL ON BOTH SIDES. NO WHEEZES. A FEW INSPIRATORY CREPS OVER THE BASILAR AREAS . Cardio Palpation: normal PMI Rate: regular rate Rhythm: regular rhythm Heart sounds: no gallops and no murmurs GI Palpation (GI): Soft to palpation, nontender, No hepatosplenomegaly present, no masses and Other GI palpation findings present (HAS SOME DISCOMFORT IN THE LEFT INGUINAL AREA WITH A SMALL BULGE ON COUGHIN) Auscultation: normal bowel sounds Back/Spine/Pelvis Thoracic/Lumbar Spine: thoracic and lumbar spine normal to inspection and thoraco-lumbar ROM limited Skin General skin exam: no rashes or lesions noted Neuro General: patient oriented x3 and no focal motor deficits Cranial nerves: Yes CN's II-XII intact bilaterally Extrem General: Yes normal to inspection, Yes no clubbing, cyanosis or edema and Yes no calf tenderness Psych Other: POOR GENERAL HYGIENE Appearance: disheveled Mental Status: mental status grossly normal Speech and movement: Normal speech and movement present Office Procedures 6 Minute Walk Time:: 11:20 SPO2 % at rest: 91 Pulse at rest: 90 SPO2 % during excercise: 84 Pulse during excercise: 112 SPO2 % after excercise: 93 Pulse after excercise: 79 Distance in yards walked: 20 Fawad Score: 5 Performance Observations:: Richardson walked on level ground with a walker, he walked 5 yds before his SPO2 dropped to 84% on pulsed O2 setting 2, O2 was increased to setting 5 and his SPO2 did not recover. Continuous O2 started at 2 lpm then increased to 3 lpm. SPO2 stable at 93% on 3 lpm continuous O2. 92022 - 6 Minute Walk Results Reviewed Results Reviewed: VENOUS BG IN HOSPITAL PH=7.51, PCO2 37 PO2 93 6 MINUTES WALK TEST. CANNOT MAINTAIN O2 SAT ABOVE 89 % EVEN WITH 4 L/MT WITH THE poc . Assessment & Plan Assessment & Plan (1) COPD (chronic obstructive pulmonary disease): Comment: PATIENT HAS ADVANCED CHRONIC OBSTRUCTIVE PULMONARY DISEASE. HE IS PRONE TO HAVE RECURRENT RESPIRATORY INFECTIONS, CAUSING ACUTE EXACERBATIONS. HOWEVER AT PRESENT HIS COPD STATUS IS STABLE . HIS ACTIVITY LEVEL IS LOW BUT HE DOES WALK AROUND IN THE HOUSE. Code(s): J44.9 - Chronic obstructive pulmonary disease, unspecified Category: Medical Plan: CONTINUE TRELEGY ELLIPTA 1 INHALATION DAILY IPRATROPIUM-ALBUTEROL SOLUTION 3 MALE IN THE NEBULIZER Q.I.D. P.R.N. VENTOLIN 2 PUFFS Q 6 HOURS P.R.N. WHEN OUTDOORS ADVISED TO USE HUMIDIFIER IN THE HOUSE DURING WINTER MONTHS (2) Bronchiectasis: Comment: IN ADDITION TO ADVANCED COPD HE DOES HAVE CHRONIC BRONCHIAL WALL THICKENING, AND BRONCHIECTASIS IN THE LOWER LOBES. Code(s): J47.9 - Bronchiectasis, uncomplicated Category: Medical Plan: ADVISED TO CONTINUE USING LOT OF FLUIDS. TREATMENT UNDER COPD. (3) Mucus plugging of bronchi: Comment: PER CT SCAN ON 01/29/23, HE WAS FOUND TO HAVE MUCUS PLUGGING OF THE BRONCHI IN THE LOWER LOBES ESPECIALLY IN RIGHT LOWER LOBE. HE IS A HIGH RISK FOR BRONCHOSCOPY. He is successfully expectorating mucus after using the DuoNeb updrafts. At present he denies any difficulty in expectorating. Code(s): T17.500A - Unspecified foreign body in bronchus causing asphyxiation, initial encounter Category: Medical Plan: CONTINUE THE NEBULIZED USE OF IPRATROPIUM AND ALBUTEROL SOLUTION 3 TO 4 TIMES A DAY. (4) Respiratory failure with hypoxia: Comment: PATIENT HAS HYPOXEMIA, BEING TREATED WITH OXYGEN SUPPLEMENTATION, 2 L/MINUTE. Code(s): J96.91 - Respiratory failure, unspecified with hypoxia Category: Medical Plan: ADVISED TO KEEP ON USING O2 2 L/MINUTE THROUGHOUT THE DAY AND NIGHT. TESTED FOR POC BUT HE DOES NOT QUALIFY. HE NEEDS CONTINUOUS FLOW. HE HAS A SMALL CYLINDER, WILL ORDER A ROLLATOR CARRIER USE CARRYING THE CYLINDER. Orders: Orders AMB 6 minute walk Today J44.9 - Chronic obstructive pulmonary disease, unspecified Coding Level of Care Code Est Pt Level 3 (61389) Diagnoses COPD (chronic obstructive pulmonary disease) J44.9 Bronchiectasis J47.9 Mucus plugging of bronchi T17.500A Respiratory failure with hypoxia J96.91 CPT Codes Coding ([id number])
[2024-04-06 11:34] VITALS: PULSE 90; O2SAT 91
== END 2024-04-06 11:32 | disposition home or self-care (01) ==
PROVIDERS: PCP Internal Medicine; Visit Provider Internal Medicine
DX: J44.9 Chronic obstructive pulmonary disease, unspecified (principal); J47.9 Bronchiectasis, uncomplicated; T17.500A Unspecified foreign body in bronchus causing asphyxiation, initial encounter; J96.91 Respiratory failure, unspecified with hypoxia
CPT/HCPCS: 94618; 99213

== ENCOUNTER → 2024-04-06 10:22 | Outpatient (BNVA) | payer MEDICARE, MEDICAID, SELFPAY | PROVIDERS: PCP Internal Medicine; Visit Provider Internal Medicine | DX: J44.9 Chronic obstructive pulmonary disease, unspecified (principal); J47.9 Bronchiectasis, uncomplicated; J96.91 Respiratory failure, unspecified with hypoxia; T17.500A Unspecified foreign body in bronchus causing asphyxiation, initial encounter | CPT/HCPCS: 94618; 99212 ==

== ENCOUNTER 2024-07-09 09:32 | Day surgery (SDC) | payer MEDICARE, MEDICAID, SELFPAY ==
--- OUTSIDE RECORDS SUMMARY | 2024-06-26 10:13 | XMS_ITS | Clinical Summary ---
Author Organization [address] Address [address] [place] [phone] Phone Care Team Providers Care Customer Experience Leader Name Role Phone Go Zamora MD Primary Care Provider [phone] Allergies No known active allergies Medications amLODIPine (NORVASC) 5 mg tablet Take 5 mg by mouth daily. 2 Active ammonium lactate (AMLACTIN) 12 % cream Apply to area three times a day 3 Active aspirin 81 mg EC tablet Take 81 mg by mouth daily. Active fluticasone-um eclidinium-demario anterol (Trelegy Ellipta) 100-62.5-25 mcg inhaler Inhale 1 Dose into the lungs daily. Active fluticasone furoate-vilant Samantha (BREO ELLIPTA) 100-25 mcg/dose inhaler Inhale 100 Inhalers into the lungs daily. Active ipratropium-al buteroL (DUONEB) 0.5-2.5 mg/3 mL nebulizer solution Inhale 3 mL into the lungs 4 times daily. Active miscellaneous medical supply misc Misc. Devices (ACAPELLA) Misc 1 Device by Does not apply route daily as needed (clearing airway). 6 Active omeprazole (PriLOSEC) [address] capsule Take 1 Capsule by mouth daily. 4 Active Oxygen Therapy (O2) gas Inhale into the lungs. Active phenylephrine- guaifenesin 2.5-100 mg/5 mL liquid Take 1 Dose by mouth every 6 hours as needed. Active pravastatin (PRAVACHOL) 80 mg tablet Take 1 tablet by mouth daily. 1 Active sertraline (ZOLOFT) 50 mg tablet Take 1 Tablet by mouth daily. 2 Active tiotropium (SPIRIVA) 18 mcg per inhalation capsule Inhale 1 Cap into the lungs daily. Inhale the contents of one capsule through the Spiriva device every AM Inhale the contents of 1 capsule via HandiHaler daily 9 Active tiZANidine (ZANAFLEX) 4 mg tablet Take 1 Tablet by mouth every 6 hours as needed for Muscle spasms for up to 10 days. 3 Active albuterol HFA (Ventolin HFA) 90 mcg/actuation inhaler INHALE 2 PUFFS INTO THE LUNGS 4 TIMES DAILY NEEDED FOR COUGH, WHEEZING OR SHORTNESS OF BREATH. 3 Active famotidine (PEPCID) 20 mg tablet TAKE 1 TABLET BY MOUTH TWICE A DAY 180 tablet 1 5 Active Additional Information Patient not taking.Reported on 05/14/2024 chlorthalidone (HYGROTON) 25 mg tablet Take 1 tablet (25 mg total) by mouth 1 (one) time each day. 30 each 5 5 11/11/19 25 Active clopidogreL (PLAVIX) 75 mg tablet Take 1 tablet (75 mg total) by mouth 1 (one) time each day. 90 each 1 5 12/10/19 25 Active clopidogreL (PLAVIX) 75 mg tablet Take 1 Tablet by mouth daily. 4 06/13/19 25 Discontin u([facility]) Hospital, Clinic, or Other Facility Administered Medication Ordered Dose Route Frequency Start Date End Date Status DOBUTamine (DOBUTREX) 500 mg in dextrose 5% 250 mL (2 mg/mL) infusion (premix) 2720 mcg/min IV Titrated 06/02/2024 Activ e perflutren lipid microsphere (DEFINITY) 1.3 mL in sodium chloride 0.9% 8.7 mL injection 10 mL IV Once in imaging 06/02/2024 06/02/2024 End ed Active Problems Problem Noted Date Diagnosed Date Abnormal EKG 05/14/2024 Primary hypertension 05/14/2024 Former smoker 05/14/2024 Urinary retention 03/11/2023 Abdominal aortic aneurysm (AAA) without rupture 10/13/2021 Gastroesophageal reflux disease 10/13/2021 COVID-19 09/18/2021 Generalized anxiety disorder 09/18/2021 Hyperlipidemia 12/09/2018 Oxygen dependent 07/18/2017 Hyperkeratosis 03/04/2013 PAD (peripheral artery disease) 03/04/2013 COPD (chronic obstructive pulmonary disease) Encounters Date Type Department Care Team Description 06/11/2024 [facility] [address] [place] [address] Go Zamora MD provider call back 06/11/2024 Telephone [facility] [address] [facility] [address] [place] [address] Adarsh Arreguin MD pre op question 06/04/2024 Telephone [facility] [address] [place] [address] Marissa Ramires MA Results (Stress echo 06/02/24) 06/02/2024 9:30 AM EDT Ancillary Procedure [facility] [address] [place] [address] Abnormal EKG; Mixed simple and mucopurulent chronic bronchitis (CMS/HCC); Primary hypertension; Oxygen dependent; PAD (peripheral artery disease) (CMS/HCC); Former smoker; PONCE (dyspnea on exertion) 05/14/2024 1:30 PM EST Office Visit [facility] [address] [place] [address] Adarsh Arreguin MD Mixed simple and mucopurulent chronic bronchitis (CMS/HCC) (Primary Dx); Abnormal EKG; Primary hypertension; Oxygen dependent; PAD (peripheral artery disease) (CMS/HCC); Former smoker; PONCE (dyspnea on exertion) 05/08/2024 10:00 AM EST Consult Internal Medicine - [address] [place] [address] Go Zamora MD Mixed simple and mucopurulent chronic bronchitis (CMS/HCC) (Primary Dx); Pre-operative clearance; Abnormal EKG; Left inguinal pain 04/30/2024 Telephone Internal Medicine - [address] [place] [address] Go Zamora MD provider call back 04/28/2024 Telephone Internal Medicine [address] [place] [address] Go Zamora MD PROVIDER CALL BACK (See 04-23-24 encounter /) 04/23/2024 Telephone Internal Medicine [address] [place] [address] Go Zamora MD provider call back from Last 3 Months Immunizations Name Administration Dates Next Due Influenza trivalent, 0.5mL ( Fluad) 65yo and older 12/25/2021,01/25/2021,12/09/2018,01/28,01/19/2017,12/30/2015,02/24/2015 ,01/26/2014,03/04/2013,02/24/2012,10/2010,04/17/2010 Influenza trivalent, with pr eservative (Fluzone; Afluria) 6mo and older 12/23/2019 Influenza, Unspecified 01/30/2023,12/23/2019 Moderna SARS-CoV-2 COVID-19, mRNA, LNP-S, preservative free 12/25/2021 Pneumococcal conjugate 13 va lent (Prevnar 13, PCV13) 2mo and older 03/07/2017 Pneumococcal polysaccharide 23 valent (Pneumovax 23) 2yo and older 02/26/2014 Tdap Tetanus diptheria acell ular pertussis (Boostrix; Adacel) 7yo and older 02/26/2014 Surgical History Surgery Date Site/Laterality Comments HAND SURGERY PROCEDURE: HISTORICAL HAND SURGERY COLONOSCOPY 07/04/2010 PROCEDURE: MD COLONOSCOPY FLX DX W/COLLJ SPEC WHEN PFRMD; COMMENT: Negative/incomplete to 60 cm, limited by hypoxemia Medical History Medical History Date Comments COPD (chronic obstructive pu lmonary disease) ([facility]/HCC) 03/16/2009 DX:COPD (chronic obstructive pulmonary disease) ([facility]) Hyperkeratosis 03/04/2013 DX:Hyperkeratosi s PVD (peripheral vascular dis ease) with claudication ([facility]) 03/04/2013 DX:PVD (peripheral vascular disease) with claudication ([facility]) Family History Medical History Relation Name Comments No Known Problems Father No Known Problems Mother Relation Name Status Comments Father Mother Social History Tobacco Use Types Packs/Day Years Used Date Smoking Tobacco: Former Cigarettes Q uit: 08/21/2013 Smokeless Tobacco: Former Tobacco Cessation:Counseling Given: Not Answered Alcohol Use Standard Drinks/Week Comments Yes 0 (1 standard drink = 0.6 oz pur e alcohol) Sex and Gender Information Value Date Recorded Sex Assigned at Not on file Legal Sex Male 6:04 PM EST Gender Identity Not on file Sexual Orientation Not on file Obstetrics History Last Filed Vital Signs Vital Sign Reading Time Taken Comments Blood Pressure 151/84 06/02/2024 10:06 AM EDT Pulse 86 05/14/2024 1:33 PM EST Temperature - - Respiratory Rate - - Oxygen Saturation 93% 05/14/2024 1:33 PM EST Inhaled Oxygen Concentration - - Weight 68 kg (150 lb) 06/02/2024 10:06 AM EDT Height 175.3 cm (5' 9 ) 06/02/2024 10:06 AM EDT Body Mass Index 22.15 06/02/2024 10:06 AM EDT Plan of Treatment Health Maintenance Due Date Last Done Comments Zoster Vaccines (1 of 2) 06/24/1995 RSV Immunization Adult Patients (1 - 1-dose 75+ series) 2020 Colorectal Cancer Screening: Stool Based Tests (FOBT/FIT) 03/03/2022 Hepatitis C Screening 03/03/2022 Social Influencers of Health Screening 03/03/2022 COVID-19 Vaccine ( season) 2023 12/25/2021, 07/30/2020, 07/09/2020 DTaP,Tdap,and Td Vaccines (2 - Td or Tdap) 02/27/2024 02/26/2014 Depression Screening 07/08/2024 07/09/2023 Falls Risk Assessment 07/08/2024 07/09/2023 Medicare Annual Wellness Visit 07/08/2024 07/09/2023 Hypertension/CHF/CAD Annual BMP Blood Test 05/08/2025 05/08/2024, 05/09/2023 Cholesterol Screening (Lipid Panel) 05/09/2028 05/09/2023 Pneumococcal Vaccine: 50+ Years Completed 03/07/2017, 02/26/2014 Influenza Vaccine Completed 03/12/2024, , 12/25/2021, Additional history exists HIB Vaccines Aged Out No longer eligi ble based on patient's age to complete this topic HPV Vaccines Aged Out No longer eligi ble based on patient's age to complete this topic Hepatitis A Vaccines Aged Out No long er eligible based on patient's age to complete this topic Hepatitis B Vaccines Aged Out No long er eligible based on patient's age to complete this topic IPV Vaccines Aged Out No longer eligi ble based on patient's age to complete this topic MMR Vaccines Aged Out No longer eligi ble based on patient's age to complete this topic Meningococcal ACWY Vaccine Aged Out N o longer eligible based on patient's age to complete this topic Meningococcal B Vacine Aged Out No lo nger eligible based on patient's age to complete this topic RSV Immunization Patients Under 20 months Aged Out No longer eligible based on patient's age to complete this topic Varicella Vaccines Aged Out No longer eligible based on patient's age to complete this topic Procedures Procedure Name Priority Date/Time Associated Diagnosis Comments STRESS ECHOCARDIOGRAM DOBUTAMINE WITH CONTRAST Routine 06/02/2024 10:40 AM EDT Abnormal EKG Mixed simple and mucopurulent chronic bronchitis (CMS/HCC) Primary hypertension Oxygen dependent PAD (peripheral artery disease) (CMS/HCC) Former smoker PONCE (dyspnea on exertion) BASIC METABOLIC PANEL Routine 05/08/2024 11:46 AM EST Pre-operative clearance COMPLETE BLOOD COUNT Routine 05/08/2024 11:46 AM EST Pre-operative clearance ECG 12-LEAD Routine 05/08/2024 11:08 AM EST Pre-operative clearance DEPRESSION SCREENING Routine 07/09/2023 FALLS RISK ASSESSMENT Routine 07/09/2023 LIPID PANEL Routine 05/09/2023 from Last 3 Months or Most Recently Relevant to Health Maintenance Results * STRESS ECHOCARDIOGRAM DOBUTAMINE WITH CONTRAST (06/02/2024 10:40 AM EDT) Target HR 121 bpm CV PACS STRESS BSA 1.82 m2 CV PACS STRESS Baseline HR 95 bpm CV PACS STRESS Baseline SBP 151 mmHg CV PACS STRESS Baseline DBP 84 mmHg CV PACS STRESS Peak HR 128 bpm CV PACS STRESS Peak SBP 166 mmHg CV PACS STRESS Peak DBP 92 mmHg CV PACS STRESS Rate Pressure Product 21,248.0 mmHg*bpm CV PACS STRESS Percent HR 90 % CV PACS STRESS Exercise/injec tion duration (min) 5 min CV PACS STRESS Exercise/injec tion duration (sec) 58 sec CV PACS STRESS Anatomical Region Laterality Modality Ultrasound Narrative 06/04/2024 1:23 PM EDT ?This was a dobutamine stress echo on a gentleman with COPD. ??Image quality was only fair even with contrast. ??I feel confident in saying that resting left ventricular function is normal. ??The inferior wall is not very well visualized. ??No obvious valvular abnormalities are seen. ??RV size and function is normal. ?Postexercise there seems to be an appropriate decrease in internal cavity dimensions. ??Augmentation of contractility seems vigorous. This is a normal dobutamine stress echo. Left Ventricle Left ventricle was not well visualized. Wall thickness is normal. Systolic function is low normal with an ejection fraction of 50-55%. No obvious regional wall motion abnormalities as seen on suboptimal views. Unable to assess diastolic function. Right Ventricle Right ventricle was not well visualized. Systolic function is normal. Left Atrium Unable to assess Right Atrium Right atrium was not assessed. Mitral Valve Mitral valve structure is normal. There is no regurgitation or stenosis. Tricuspid Valve Tricuspid valve structure is normal. There is no regurgitation or stenosis. Aortic Valve The aortic valve was not well visualized. Number of aortic valve cusps cannot be determined. There is no regurgitation or stenosis. Pulmonic Valve The pulmonic valve was not assessed. Unable to assess pulmonic valve regurgitation and stenosis due to poor Doppler exam. Ascending Aorta The aorta was not well visualized. Pericardium Pericardium appears normal. Study Details Overall the study quality was technically difficult. Definity contrast was given to enhance imaging. Study was difficult due to: poor endocardial visualization, patient body habitus and chronic lung disease. Stress Findings A pharmacological stress test was performed using dobutamine. Peak infusion rate of 20 mcg/kg/min. No atropine used. Total stress time was 5 min and 58 sec. The patient reached the end of the protocol. Blood pressure demonstrated a normal response. Heart rate demonstrated a normal response. The patient reported no symptoms during the stress test. ECG 78 year old male presenting for pharmacological stress echo as part of pre- operative risk stratification. PMH includes HLD, HTN, PAD, former smoking, severe COPD on O2. The ECG shows normal sinus rhythm. The ECG axis is normal. Non-specific ST abnormalities noted at baseline. Arrhythmias during stress: occasional premature atrial contractions (PACs), occasional premature ventricular contractions (PVCs) . There is non-specific ST abnormalities during stress. Arrhythmias during recovery: occasional premature atrial contractions (PACs), occasional premature ventricular contractions (PVCs). Echo Post Stress Image quality was only fair with Definity echo contrast. Systolic function at rest appears to be normal with no obvious wall motion abnormalities. On the postexercise images there appears to be normal augmentation of contractility in all wall segments with a decrease in internal cavity dimensions. Nuclear Measurements The study is normal. This study shows a low risk of major adverse cardiovascular events. Procedure Note Gail Chow NP / Adarsh Arreguin MD - 06/04/2024 ? ? This was a dobutamine stress echo on a gentleman with COPD. Imagequality was only fair even with contrast. I feel confident in saying thatresting left ventricular function is normal. The inferior wall is notvery well visualized. No obvious valvular abnormalities are seen. RVsize and function is normal. ? ? Postexercise there seems to be an appropriate decrease in internalcavity dimensions. Augmentation of contractility seems vigorous. This is a normal dobutamine stress echo. us Adarsh Arreguin MD CV ECHO PROCEDURES Final Result * (ABNORMAL) Complete blood count (05/08/2024 11:46 AM EST) [facility] WBC 9.6 4.8 - 10.8 K/mcL LAB HEMETOLOGY METHOD 05/08/2024 2:49 PM [facility] RBC 4.50 4.50 - 5.50 M/mcL LAB HEMETOLOGY METHOD 05/08/2024 2:49 PM [facility] Hemoglobin 13.5 13.5 - 17.5 g/dL LAB HEMETOLOGY METHOD 05/08/2024 2:49 PM [facility] Hematocrit 43.7 42.0 - 54.0 % LAB HEMETOLOGY METHOD 05/08/2024 2:49 PM [facility] MCV 96.9 79.0 - 98.0 FL LAB HEMETOLOGY METHOD 05/08/2024 2:49 PM [facility] MCH 29.9 27.0 - 32.0 pcg LAB HEMETOLOGY METHOD 05/08/2024 2:49 PM [facility] MCHC 30.9(L) 32.0 - 37.0 g/dL LAB HEMETOLOGY METHOD 05/08/2024 2:49 PM [facility] RDW 14.2 11.0 - 15.0 % LAB HEMETOLOGY METHOD 05/08/2024 2:49 PM [facility] Platelets 293 130 - 400 K/mcL LAB HEMETOLOGY METHOD 05/08/2024 2:49 PM [facility] MPV 10.6 7.0 - 11.0 FL LAB HEMETOLOGY METHOD 05/08/2024 2:49 PM [facility] NRBC 0.0 <1.0 % LAB HEMETOLOGY METHOD 05/08/2024 2:49 PM EST [facility] NRBC Absolute 0.00 <0.10 K/mcL LAB HEMETOLOGY METHOD 05/08/2024 2:49 PM [facility] Blood Venous blood specimen / Unknown Venipuncture / Unknown 05/08/2024 11:46 AM EST 05/08/2024 11:46 AM EST us Go Zamora MD LAB BLOOD ORDERABLES Final Res ult [facility] [address] [place] [address], * (ABNORMAL) Basic metabolic panel (05/08/2024 11:46 AM EST) Sodium 139 133 - 145 mmol/L LAB CHEMISTRY METHOD 05/08/2024 2:51 PM [facility] Potassium 4.2 3.5 - 5.5 mmol/L LAB CHEMISTRY METHOD 05/08/2024 2:51 PM [facility] Chloride 104 96 - 110 mmol/L LAB CHEMISTRY METHOD 05/08/2024 2:51 PM [facility] CO2 32 21 - 32 mmol/L LAB CHEMISTRY METHOD 05/08/2024 2:51 PM [facility] Anion Gap 3 3 - 11 LAB CHEMISTRY METHOD 05/08/2024 2:51 PM [facility] Glucose 100 70 - 100 mg/dL LAB CHEMISTRY METHOD 05/08/2024 2:51 PM [facility] BUN 29(H) 5 - 25 mg/dL LAB CHEMISTRY METHOD 05/08/2024 2:51 PM [facility] Creatinine 1.03 0.70 - 1.30 mg/dL LAB CHEMISTRY METHOD 05/08/2024 2:51 PM [facility] eGFR 74 >=60 mL/min/1. 73m2 LAB CHEMISTRY METHOD 05/08/2024 2:51 PM EST [facility] Comment:Calculation based on the??Chronic Kidney Disease Epidemiology Collaboration (CKD-EPI) equation refit??without adjustment for race. BUN/Creatinine Ratio 28.2 LAB CHEMISTRY METHOD 05/08/2024 2:51 PM EST [facility] Calcium 9.4 8.5 - 10.5 mg/dL LAB CHEMISTRY METHOD 05/08/2024 2:51 PM EST [facility] Blood Venous blood specimen / Unknown Venipuncture / Unknown 05/08/2024 11:46 AM EST 05/08/2024 11:46 AM EST Go Zamora MD LAB BLOOD ORDERABLES Final Res ult [facility] [address] [place] [address], * ECG 12 lead (05/08/2024 11:08 AM EST) Narrative Go Zamora MD - 05/08/2024 11:08 AM EST EKG reviewed by Dr Zamora Go Zamora MD ECG ORDERABLES Final Result * Falls Risk Assessment (07/09/2023) Pathologist [facility] Falls Risk Assessment abstracted Historical Provider HEALTH MAINTENANCE Final Result * Depression Screening (07/09/2023) Pathologist [facility] Depression Screening abstracted Historical Provider HEALTH MAINTENANCE Final Result * (ABNORMAL) Lipid panel (05/09/2023) Pathologist [facility] LDL/HDL Ratio 4 0 - 4 Triglycerides 112 0 - 150 mg/dL Cholesterol 213(A) 0 - 200 mg/dL HDL 53 >=40 mg/dL LDL Cholesterol 138(A) 0 - 100 mg/dL Blood Venous blood specimen / Unknown us Historical Provider LAB BLOOD ORDERABLES Magdalena l Result from Last 3 Months or Most Recently Relevant to Health Maintenance Insurance [place]ICA[place] [employer] MEDIC[place] ADVANTAGE Advance Directives Documents on File Type Date Recorded Patient Carrot Buncher Expl anation Health Care Decision (hx) 07/18/2015 AD MIDDLETON DIRECTIVE Health Care Decision (hx) 07/18/2015 AD MIDDLETON DIRECTIVE Health Care Decision (hx) 07/17/2015 AD MIDDLETON DIRECTIVE Health Care Decision (hx) 07/17/2015 AD MIDDLETON DIRECTIVE Care Teams Customer Experience Leader Relationship Specialty Start Date End Date Go Zamora MD [address] [place] [phone] PCP - General Internal Medicine 05/06/24
--- OUTSIDE RECORDS SUMMARY | 2024-06-26 10:13 | XMS_ITS | Encounter Summary ---
Author Organization [facility] Address [address] [place] [address] Care Team Providers Care [employer] Social Science Teacher Name Role Phone Go Zamora MD Primary Care Provider [phone] Reason for Visit * Reason Onset Date Comments provider call back 06/11/2024 Encounter Details Date Type Department Care Team (Late st Contact Info) Description 06/11/2024 Telephone [facility] [address] [place] [phone] Go Zamora MD [address] [place] [phone] provider call back Social History Tobacco Use Types Packs/Day Years Used Date Smoking Tobacco: Former Cigarettes Q uit: 08/21/2013 Smokeless Tobacco: Former Alcohol Use Standard Drinks/Week Comments Yes 0 (1 standard drink = 0.6 oz pur e alcohol) Sex and Gender Information Value Date Recorded Sex Assigned at Not on file Legal Sex Male 6:04 PM EST Gender Identity Not on file Sexual Orientation Not on file documented as of this encounter Ordered Prescriptions Prescription Sig Dispense Quantity Refills Last Filled Start Date End Date clopidogreL (PLAVIX) 75 mg tablet Take 1 tablet (75 mg total) by mouth 1 (one) time each day. 90 each 1 06/12/2024 12/09/2024 documented in this encounter Progress Notes * Jennifer Weinberg MA - 06/17/2024 3:39 PM EDT Brayan was given response message below. WILSON CHOCO * Go Zamora MD - 06/17/2024 2:05 PM EDT Hold 5-7 days * Mckayla Steve MA - 06/15/2024 3:17 PM EDT How long prior to surgery should pt hold Plavix? Ok to hold? * Anthony Schuster - 06/15/2024 10:44 AM EDT Brayan David [phone] from [facility] General surgery is calling back regarding the stoppage of Plavix, they need this info to clear pt for pending surgery. * Jennifer Weinberg MA - 06/12/2024 2:23 PM EDT Response to message below was given to Richardson Pulido. Richardson Lambert. gave me verbal permission to speak with son. WILSON WILHELM * Ene Rios MA - 06/12/2024 11:51 AM EDT Attempted to contact pt / no answer Lm to cb - Please put thru [phone] * Cary Cueto - 06/12/2024 11:51 AM EDT Jordana from [facility] General surgeon's office is calling office back , please return call. States call got dropped * Go Zamora MD - 06/12/2024 7:47 AM EDT Please have patient schedule appointment with his vascular to determine how long he will need to beon Plavix. Refill provided but will need confirmation from vascular going forward * Mckayla Callejas NP - 06/11/2024 3:59 PM EDT As per my previous note in another telephone encounter, we do not prescribe Plavix and it appears to be prescribed related his history of PAD; he has no cardiac issues that warrant Plavix. Ordering provider (PCP) should advise. * Jewels Kraft RN - 06/11/2024 2:57 PM EDT Please see below. Looked at cards notes from 01/29/2013 - Dr. Yair Arreola - mentions PVD and hx of recanalization of a completely occluded, highly symptomatic left SFA. PCP ordered last refill on Plavix - who is making this call for recommendations on holding Plavix? * Nhi Sweeney MA - 06/11/2024 2:37 PM EDT Cardiology pls advise per PCP, thank you. * Karen Pittman - 06/11/2024 2:18 PM EDT Jordana from [facility] General surgeon's office. She stated Dr Zamora and the handle finisher have cleared him. See previous message. But no pre-op with us. Last seen 05/14/24 * Nhi Sweeney MA - 06/11/2024 1:52 PM EDT Who is the caller and when is the procedure scheduled. Did patient have a pre- op? Thank you. * Karen Pittman - 06/11/2024 1:45 PM EDT Needs to know how long to clopidogreL before hernia repair surgery documented in this encounter Plan of Treatment Not on file documented as of this encounter Visit Diagnoses Not on filedocumented in this encounter Discontinued Medications Medication Sig Discontinue Reason Start Date End Da te clopidogreL (PLAVIX) 75 mg tablet Take 1 Tablet by mouth daily. Reorder 01/23/2024 06/12/2024 documented as of this encounter Care Teams [employer] Social [employer] Teacher Relationship Specialty Start Date End Date Go Zamora MD [address] [place] [phone] PCP - General Internal Medicine 05/06/24 documented as of this encounter
[2024-07-02 11:43] VITALS: BMI 22.3
--- NOTE | 2024-07-08 09:43 | P.HPSUR_ITS ---
Pre-Procedural Eval Section A - 24 Hr Update-Section A only Date of Service: 07/09/24 The patient is an INPATIENT: No Changes since office visit: No Cold of Flu in the past 2 weeks, No New Medical Problems, No Changes in Medication and No Patient answered all questions Section B - Complete if H&P > 30 days Chief Complaint: Unilateral inguinal hernia, without obstruction Allergies: Allergies Allergy/AdvReac Type Severity Reaction Status Date / Time No Known Allergies Allergy Verified 07/02/24 11:42 Review of Systems Sugical H&P ROS: Negative: Constitution, Cardiovascular, Respiratory, Neurological, Psychiatric, Hem-Onc, Allergic/Immunologic, Gastrointestinal, Genitourinary, Musculoskeletal, Integumentary, Endocrine and Eye s/Ears/Nose/Throat Exam Surgical H&P Exam: Normal: HEENT, Normal: Heart, Normal: Lungs, Normal: Extremities, Normal: Abdomen, Normal: Skin and Normal: Neurological Plan I have reviewed the history and physical and performed a pertinent physical examination on my patient. No changes have occurred unless specified. Time Spent With Patient Time: Total time managing care of this patient today ____ minutes.
[2024-07-09] VITALS (12 sets, daily range): BP systolic 123–155; BP diastolic 58–90; PULSE 70–86; RESP 17–24; TEMP 36.1–37.1; O2SAT 95–100
[2024-07-09] MEDS: Lactated Ringers 1,000 ML 100 ML IVCONT (10:42)
[2024-07-09] MEDS: Albuterol Sulfate (0.083%) 2.5 MG/3 ML VIAL.NEB INHALE (11:32)
--- NOTE | 2024-07-09 13:09 | HO.ANESPROP2 ---
Documented by User: Cynthia Aguero NP 07/08/24 12:28 HPI - Anesthesia Eval Consult details Narrative: 79yo M for Left Repair Hernia Inguinal Reducible with mesh Follows [facility] pulmo for COPD with bronchiectasis with mucus retention. Requiring continuous O2 @ 2-4L. Deemed high pulmo risk but optimized for inguinal hernia Referrred to [facility] for preop eval. Hx PAD. Dobutamine stress negative Follows [facility] Vascular for AAA (4.1 vs 4.5cm on imaging) Very low activity tolerance. High risk for GA. Case reviewed with Dr Menendez [facility] Active Problems Active Problems: All Active Problems Parainfluenza infection (Acute) Left inguinal hernia (Acute) BPH loc w urin obs/LUTS (Acute) Microscopic hematuria (Acute) Reflux esophagitis (Acute) Pneumonia (Acute) Sepsis (Acute) Respiratory failure with hypoxia (Acute) Bronchiectasis (Acute) Hernia, ventral (Acute 04/19/23) Mucus plugging of bronchi (Acute) COPD (chronic obstructive pulmonary disease) (Acute) PAD (peripheral artery disease) (Acute) AAA (abdominal aortic aneurysm) without rupture (Acute) Past Medical History Medical History No natural teeth Mixed simple and mucopurulent chronic bronchitis Bronchiectasis PVD (peripheral vascular disease) with claudication Elevated cholesterol Personal history of COVID-19 BRANDAN (generalized anxiety disorder) Oxygen dependent Urinary retention Abdominal pain Respiratory failure with hypoxia COPD (chronic obstructive pulmonary disease) Mucus plugging of bronchi PAD (peripheral artery disease) AAA (abdominal aortic aneurysm) without rupture Emphysema lung Family History Family history of problems with anesthesia: No Surgical History Surgical History Hx of colonoscopy Hx of hand surgery (~1984) Hernia, ventral (04/19/23) History of Problems with Anesthesia: No Social History Social History (Updated 07/02/24 @ 11:40 by Baylee Arizmendi RN) Household Members: Other Household Members Other:: Adult son Housing: House Are you a primary care team coordinator scheduler to a significant other at home: No Do you presently have visiting nurse or other home services: No Alcohol intake: former Patient Tobacco Use Status: Former Tobacco user Tobacco use type: Cigarette Second Hand Smoke Exposure: No Use of substances other than those prescribed or required for medical reasons: No Are you DNR?: No Advance Directives: No Advance Directives Information Provided: Yes Advance Directives on File: No Poor oral hygiene: Yes (no teeth) service: No Meds Allergies Allergy/AdvReac Type Severity Reaction Status Date / Time No Known Allergies Allergy Verified 07/09/24 10:49 Home Medications ?Medication ?Instructions ?Recorded ?Confirmed ?Last Taken ?Type albuterol sulfate 90 mcg/actuation 2 puff inhalation Q6H PRN 11/08/22 07/02/24 04/19/23 History aerosol inhaler (Ventolin HFA) Shortness Of Breath Or Wheezing aspirin 81 mg tablet,delayed 81 mg PO DAILY 11/08/22 07/02/24 07/07/24 History release clopidogrel 75 mg tablet 75 mg PO DAILY 04/16/23 07/02/24 07/04/24 History famotidine 20 mg tablet 20 mg PO BID 03/12/24 07/02/24 07/09/24 07:30 History fluticasone fur. 200 mcg-umeclid 1 ea inhalation DAILY 03/12/24 07/02/24 07/09/24 07:30 History 62.5 mcg-vilant 25 mcg inhalat.powder (Trelegy Ellipta) chlorthalidone 25 mg tablet 25 mg PO DAILY 07/02/24 07/02/24 07/09/24 07:30 History Exam Height,Weight and Vital Signs: Height 5 ft 9 in Weight 68.492 kg Narrative Narrative: EKG 02/2024 Vent. Rate : 118 BPM Atrial Rate : 118 BPM P-R Int : 172 ms QRS Dur : 078 ms QT Int : 286 ms P-R-T Axes : 049 -07 023 degrees QTc Int : 400 ms Sinus tachycardia Nonspecific ST and T wave abnormality Abnormal ECG When compared with ECG of 11-NOV-2023 14:58, No significant change was found Dobutamine Stress ECHO 05/2024 Image quality fair even with contrast Resting LV function nml Inferior wall not well visualized No obvious valve abnormalities seen RV size and function nml Postexercise seems to be an appropriate decrease in internal cavity dimensions. Augmentation of contractitily seems vigorous. Nml dobutamine stress ECHO Assessment and Plan Final Anesthetic Review Family History of Problems with Anesthesia: No History of Problems with Anesthesia: No Documented by User: Ana López DO 07/09/24 13:11 PMFSH Past Medical History Medical History No natural teeth Mixed simple and mucopurulent chronic bronchitis Bronchiectasis PVD (peripheral vascular disease) with claudication Elevated cholesterol Personal history of COVID-19 BRANDAN (generalized anxiety disorder) Oxygen dependent Urinary retention Abdominal pain Respiratory failure with hypoxia COPD (chronic obstructive pulmonary disease) Mucus plugging of bronchi PAD (peripheral artery disease) AAA (abdominal aortic aneurysm) without rupture Emphysema lung Family History Family history of problems with anesthesia: No Surgical History Surgical History Hx of colonoscopy Hx of hand surgery (~1984) Hernia, ventral (04/19/23) History of Problems with Anesthesia: No Social History Social History (Updated 07/02/24 @ 11:40 by Baylee Arizmendi RN) Household Members: Other Household Members Other:: Adult son Housing: House Are you a primary care team coordinator scheduler to a significant other at home: No Do you presently have visiting nurse or other home services: No Alcohol intake: former Patient Tobacco Use Status: Former Tobacco user Tobacco use type: Cigarette Second Hand Smoke Exposure: No Use of substances other than those prescribed or required for medical reasons: No Are you DNR?: No Advance Directives: No Advance Directives Information Provided: Yes Advance Directives on File: No Poor oral hygiene: Yes (no teeth) service: No Meds Allergies Allergy/AdvReac Type Severity Reaction Status Date / Time No Known Allergies Allergy Verified 07/09/24 10:49 Home Medications ?Medication ?Instructions ?Recorded ?Confirmed ?Last Taken ?Type albuterol sulfate 90 mcg/actuation 2 puff inhalation Q6H PRN 11/08/22 07/02/24 04/19/23 History aerosol inhaler (Ventolin HFA) Shortness Of Breath Or Wheezing aspirin 81 mg tablet,delayed 81 mg PO DAILY 11/08/22 07/02/2407/07/25 History release clopidogrel 75 mg tablet 75 mg PO DAILY 04/16/23 07/02/24 07/04/24 History famotidine 20 mg tablet 20 mg PO BID 03/12/24 07/02/24 07/09/24 07:30 History fluticasone fur. 200 mcg-umeclid 1 ea inhalation DAILY 03/12/24 07/02/24 07/09/24 07:30 History 62.5 mcg-vilant 25 mcg inhalat.powder (Trelegy Ellipta) chlorthalidone 25 mg tablet 25 mg PO DAILY 07/02/24 07/02/24 07/09/24 07:30 History Exam Exam Date and Time: 07/09/24 1300 Height,Weight and Vital Signs: Height 5 ft 9 in Weight 68.492 kg Vital Signs Temperature 98.5 F 07/09/24 10:18 Pulse Rate 80 07/09/24 10:18 Respiratory Rate 20 07/09/24 10:18 Blood Pressure 153/74 H 07/09/24 10:18 Pulse Oximetry 96 07/09/24 10:18 Oxygen Delivery Method Nasal Cannula 07/09/24 10:18 Oxygen Flow Rate 2 07/09/24 10:18 Fraction of Inspired Oxygen 98.5 07/09/24 10:18 Temperature 98.5 F 07/09/24 10:18 Pulse Rate 76 07/09/24 11:33 Respiratory Rate 17 07/09/24 11:33 Blood Pressure 153/74 H 07/09/24 10:18 Pulse Oximetry 96 07/09/24 10:18 Oxygen Delivery Method Nasal Cannula 07/09/24 10:18 Oxygen Flow Rate 2 07/09/24 10:18 Fraction of Inspired Oxygen 98.5 07/09/24 10:18 Airway Mallampati Class: II TM Dist: >3cm Neck ROM: Full Loose/Missing/Broken Teeth: Yes (edentulous) Heart: S1S2 Lungs: Diminished breath sounds bilaterally Assessment and Plan Assessment Anesthesia Assessment: Anesthesia Plan Discussed and Chart Reviewed Final Anesthetic Review Family History of Problems with Anesthesia: No History of Problems with Anesthesia: No NPO: Yes ASA Class: III Final Preanesthetic Review: No Changes in Pt Med Stat, Meds/Allgs Chart Reviewed, Consent Obtained/Reviewed and Anes Risks/Benef Reviewed Patient Risk: High Procedure Risk: Low Anesthetic Plan Anesthetic Plan: MAC: and Agree w/ Assess. and Plan Disposition: Standard PACU
--- NOTE | 2024-07-09 13:34 | W.PM.OPN ---
Operative Note Operative Note Date of Service: 07/09/24 Narrative: Preoperative diagnosis: [] Symptomatic enlarging left inguinal hernia Postop diagnosis: [] The same Procedure [] open left inguinal herniorrhaphy with Bard mesh Surgeon: [] Jarred Sales Service Coordinator: [] Jerald Type of Anesthesia: [] Mac Indication for surgery: [] Moderately sized direct inguinal hernia. Small left indirect hernia Findings: [] Patient brought to the operating room, placed on operative table supine position, after an adequate level of MAC anesthesia was induced, the left groin was prepped and draped in usual sterile fashion using a small left para inguinal incision after inguinal low inguinal and local wound infiltration with 0.5% Marcaine/1% lidocaine, this carried down through skin, subcutaneous tissue, Kiko's fascia. External oblique fibers were opened their direction with care to isolate and preserve the ilioinguinal nerve throughout the procedure. Spermatic cord was identified and retracted from the field. Small indirect hernia was reduced. Moderately sized direct hernia was identified and reduced. A Bard plug was placed in the indirect defect and sutured inferiorly to the inguinal ligament, and superiorly to the transversalis fascia using interrupted 0 Ethibond suture. This also covered the internal ring. At completion, mesh was in good position with no tension or gaps. Wound was irrigated, secured hemostasis, and closed in the following manner; external oblique fascia was closed using running 2-0 Vicryl suture. Kiko's fascia was reapproximated using interrupted 3-0 Vicryl suture. Interrupted inverted deep dermal 3-0 Vicryl sutures followed by running subcuticular 4-0 Vicryl sutures were placed. Steri-Strips and sterile dressings were applied. Wound was infiltrated 0.5% Marcaine/1% lidocaine at completion as well. Sponge, needle, and instrument counts reported correct. Patient tolerated the procedure well and emerged from anesthesia stable condition. EBL minimal. Ipsilateral testicle was intrascrotal at completion.
[2024-07-09] MEDS: Acetaminophen 325 MG TABLET 650 MG PO (14:45)
== END 2024-07-09 16:43 | disposition home or self-care (01) ==
PROVIDERS: PCP Internal Medicine; Visit Provider Surgery
PROC: (CPT 49505; principal; 2024-07-09 13:20)
DX: K40.90 Unilateral inguinal hernia, without obstruction or gangrene, not specified as recurrent (principal); J44.9 Chronic obstructive pulmonary disease, unspecified; J96.91 Respiratory failure, unspecified with hypoxia; Z99.81 Dependence on supplemental oxygen; Z87.891 Personal history of nicotine dependence; I73.9 Peripheral vascular disease, unspecified; I71.40 Abdominal aortic aneurysm, without rupture, unspecified; E78.00 Pure hypercholesterolemia, unspecified; F41.1 Generalized anxiety disorder; Z79.82 Long term (current) use of aspirin; Z79.51 Long term (current) use of inhaled steroids; Z79.899 Other long term (current) drug therapy; Z98.890 Other specified postprocedural states
CPT/HCPCS: 49505; 94640; C1781; J0690; J2003; J2704; J2795; J3010

== ENCOUNTER → 2024-07-09 09:32 | Outpatient (BNV) | payer MEDICARE, MEDICAID, SELFPAY | PROVIDERS: PCP Internal Medicine; Visit Provider Surgery | DX: K40.90 Unilateral inguinal hernia, without obstruction or gangrene, not specified as recurrent (principal) | CPT/HCPCS: 49505 ==

== ENCOUNTER 2024-07-13 15:32 | Emergency (ER) | payer MEDICARE, MEDICAID, SELFPAY ==
[2024-07-13] VITALS (7 sets, daily range): BP systolic 113–141; BP diastolic 62–94; PULSE 77–100; RESP 12–22; TEMP 36.4–37.1; O2SAT 93–98; BMI 24.2
--- NOTE | ~2024-07-13 | CT_ITS ---
CLINICAL HISTORY: abd pain. Status post hernia surgery on July 09t CT abdomen and pelvis with contrast Comparison: CT - CT ABDOMEN PELVIS W IV CON - 07/13/24 18:20 EDT Findings: Moderate diffuse emphysema. Interval new bibasilar peribronchial cuffing likely represent bronchitis/ small airway disease. Stable multiple hepatic cysts. Cholelithiasis. Stable bilateral renal cysts, left more than right. Spleen and pancreas are within normal limits. No bowel obstruction, pneumoperitoneum, or pneumatosis. Postsurgical changes related to left inguinal hernia repair with multiple locules of air and small fluid collection tracking along the left spermatic cord. Moderate surrounding inflammatory changes. No acute fracture. IMPRESSION: Postsurgical changes related to left inguinal hernia repair with multiple locules of air and small fluid collection tracking along the left spermatic cord. Moderate surrounding subcutaneous inflammatory changes. Findings may represent postsurgical inflammatory changes with seroma. Infectious process can not be entirely excluded. Interval new bibasilar peribronchial cuffing likely represent bronchitis/small airway disease. Other stable chronic findings as detailed above. This document has been electronically signed by: Rocky Vitale MD on 07/13/2024 19:27:00
--- OUTSIDE RECORDS SUMMARY | 2024-07-13 16:09 | XMS_ITS | Clinical Summary ---
Author Organization [address] Address [address] [place] [phone] Phone Care Team Providers Care Nurse Staff Community [facility] Name Role Phone Go Zamora MD Primary Care Provider [phone] Allergies No known active allergies Medications amLODIPine (NORVASC) 5 mg tablet Take 5 mg by mouth daily. 2 Active ammonium lactate (AMLACTIN) 12 % cream Apply to area three times a day 3 Active aspirin 81 mg EC tablet Take 81 mg by mouth daily. Active fluticasone-ume clidinium-vilan terol (Trelegy Ellipta) 100-62.5-25 mcg inhaler Inhale 1 Dose into the lungs daily. Active fluticasone furoate-vilante roL (BREO ELLIPTA) 100-25 mcg/dose inhaler Inhale 100 Inhalers into the lungs daily. Active ipratropium-alb uteroL (DUONEB) 0.5-2.5 mg/3 mL nebulizer solution Inhale 3 mL into the lungs 4 times daily. Active miscellaneous medical supply misc Misc. Devices (ACAPELLA) Misc 1 Device by Does not apply route daily as needed (clearing airway). 6 Active omeprazole (PriLOSEC) [address] capsule Take 1 Capsule by mouth daily. 4 Active Oxygen Therapy (O2) gas Inhale into the lungs. Active phenylephrine-g uaifenesin 2.5-100 mg/5 mL liquid Take 1 Dose [...] 90 each 1 5 12/10/19 25 Active Hospital, Clinic, or Other Facility Administered Medication Ordered Dose Route Frequency Start Date End Date Status DOBUTamine (DOBUTREX) 500 mg in dextrose 5% 250 mL (2 mg/mL) infusion (premix) 2720 mcg/min IV Titrated 06/02/2024 Active Active Problems Problem Noted Date Diagnosed Date Abnormal EKG 05/14/2024 Primary hypertension 05/14/2024 Former smoker 05/14/2024 Urinary retention 03/11/2023 Abdominal aortic aneurysm (A AA) without rupture (CMS/HCC V24) 10/13/2021 Gastroesophageal reflux disease 10/13/2021 COVID-19 09/18/2021 Generalized anxiety disorder 09/18/2021 Hyperlipidemia 12/09/2018 Oxygen dependent 07/18/2017 Hyperkeratosis 03/04/2013 PAD (peripheral artery disease) ([facility] V24) COPD (chronic obstructive pu lmonary disease) ([facility] V24, [facility] V28) 03/16/2009 Encounters Date Type Department Care Team Description 06/11/2024 Telephone [facility] [address] [place] [address] Go Zamora MD provider call back 06/11/2024 Telephone [facility] Cardiology [facility] [address] [facility] [address] [place] [address] Adarsh Arreguin MD pre op question 06/04/2024 Telephone [facility] [address] [place] [address] Marissa Ramires MA Results (Stress echo 06/02/24) 06/02/2024 9:30 AM EDT Ancillary Procedure [facility] Cardiology [facility] [address] [phone] Abnormal EKG; Mixed simple and mucopurulent chronic bronchitis ([facility] V24, [facility] V28); Primary hypertension; Oxygen dependent; PAD (peripheral artery disease) ([facility] V24); Former smoker; PONCE (dyspnea on exertion) 05/14/2024 1:30 PM EST Office Visit [facility] Cardiology [facility] [address] [place] [address] Adarsh Arreguin MD Mixed simple and mucopurulent chronic bronchitis ([facility] V24, [facility] V28) (Primary Dx); Abnormal EKG; Primary hypertension; Oxygen dependent; PAD (peripheral artery disease) ([facility] V24); Former smoker; PONCE (dyspnea on exertion) 05/08/2024 10:00 AM EST [facility] [address] [place] [address] Go Zamora MD Mixed simple and mucopurulent chronic bronchitis ([facility] V24, [facility] V28) (Primary Dx); Pre-operative clearance; Abnormal EKG; Left inguinal pain 04/30/2024 Telephone Internal [address] [phone] Go Zamora MD provider call back 04/28/2024 Telephone Internal [address] [phone] Go Zamora MD PROVIDER CALL BACK (See 04-23-24 encounter /) 04/23/2024 Telephone Internal [address] [phone] Go Zamora MD provider call back from [...] PROCEDURE: HISTORICAL HAND SURGERY COLONOSCOPY 07/04/2010 PROCEDURE: [place] COLONOSCOPY FLX DX W/COLLJ SPEC WHEN PFRMD; COMMENT: Negative/incomplete to 60 cm, limited by hypoxemia Medical History Medical History Date Comments COPD (chronic obstructive pu lmonary disease) ([facility] V24, [facility] V28) 03/16/2009 DX:COPD (chronic o bstructive pulmonary disease) ([facility]) Hyperkeratosis 03/04/2013 DX:Hyperkeratosi s PVD (peripheral vascular dis ease) with claudication ([facility] V24) 03/04/2013 DX:PVD (peripheral vascular disease) with claudication ([facility]) Family History Medical History Relation Name Comments [...] age to complete this topic Meningococcal B Vaccine Aged Out No l onger eligible based on patient's age to complete [...] EKG Mixed simple and mucopurulent chronic bronchitis (CMS/HCC V24, CMS/HCC V28) Primary hypertension Oxygen dependent PAD (peripheral artery disease) (CMS/HCC V24) Former smoker PONCE (dyspnea on exertion) BASIC [...] Complete blood count (05/08/2024 11:46 AM EST) [facility] WBC 9.6 4.8 - 10.8 K/mcL LAB HEMETOLOGY METHOD 05/08/2024 2:49 PM [facility] RBC 4.50 4.50 - 5.50 M/mcL LAB HEMETOLOGY METHOD 05/08/2024 2:49 PM [facility] Hemoglobin 13.5 13.5 - 17.5 g/dL LAB HEMETOLOGY METHOD 05/08/2024 2:49 PM [facility] Hematocrit 43.7 42.0 - 54.0 % LAB HEMETOLOGY METHOD 05/08/2024 2:49 PM [facility] MCV 96.9 79.0 - 98.0 FL LAB HEMETOLOGY METHOD 05/08/2024 2:49 PM [facility] MCH 29.9 27.0 - 32.0 pcg LAB HEMETOLOGY METHOD 05/08/2024 2:49 PM [facility] MCHC 30.9(L) 32.0 - 37.0 g/dL LAB HEMETOLOGY METHOD 05/08/2024 2:49 PM [facility] RDW 14.2 11.0 - 15.0 % LAB HEMETOLOGY METHOD 05/08/2024 2:49 PM [facility] Platelets 293 130 - 400 K/mcL LAB HEMETOLOGY METHOD 05/08/2024 2:49 PM [facility] MPV 10.6 7.0 - 11.0 FL LAB HEMETOLOGY METHOD 05/08/2024 2:49 PM [facility] NRBC 0.0 <1.0 % LAB HEMETOLOGY METHOD 05/08/2024 2:49 PM EST [facility] NRBC Absolute 0.00 <0.10 K/mcL LAB HEMETOLOGY METHOD 05/08/2024 2:49 PM [facility] Blood Venous blood specimen / Unknown Venipuncture / Unknown 05/08/2024 11:46 AM EST 05/08/2024 11:46 AM EST us Go Zamora MD LAB BLOOD ORDERABLES Final Res ult [facility] [address] [place] [address], * (ABNORMAL) Basic metabolic panel (05/08/2024 11:46 AM EST) Sodium 139 133 - 145 mmol/L LAB CHEMISTRY METHOD 05/08/2024 2:51 PM [facility] Potassium 4.2 3.5 - 5.5 mmol/L LAB CHEMISTRY METHOD 05/08/2024 2:51 PM [facility] Chloride 104 96 - 110 mmol/L LAB CHEMISTRY METHOD 05/08/2024 2:51 PM [facility] CO2 32 21 - 32 mmol/L LAB CHEMISTRY METHOD 05/08/2024 2:51 PM [facility] Anion Gap 3 3 - 11 LAB CHEMISTRY METHOD 05/08/2024 2:51 PM [facility] Glucose 100 70 - 100 mg/dL LAB CHEMISTRY METHOD 05/08/2024 2:51 PM [facility] BUN 29(H) 5 - 25 mg/dL LAB CHEMISTRY METHOD 05/08/2024 2:51 PM [facility] Creatinine 1.03 0.70 - 1.30 mg/dL LAB CHEMISTRY METHOD 05/08/2024 2:51 PM [facility] eGFR 74 >=60 mL/min/1. 73m2 LAB CHEMISTRY METHOD 05/08/2024 2:51 PM EST [facility] Comment:Calculation based on the??Chronic Kidney Disease Epidemiology Collaboration (CKD-EPI) equation refit??without adjustment for race. BUN/Creatinine Ratio 28.2 LAB CHEMISTRY METHOD 05/08/2024 2:51 PM EST [facility] Calcium 9.4 8.5 - 10.5 mg/dL LAB CHEMISTRY METHOD 05/08/2024 2:51 PM EST [facility] Blood Venous blood specimen / Unknown Venipuncture / Unknown 05/08/2024 11:46 AM EST 05/08/2024 11:46 AM EST Go Zamora MD LAB BLOOD ORDERABLES Final Res ult [facility] [address] [place] [address], * ECG 12 lead (05/08/2024 11:08 AM EST) Narrative Go Zamora MD - 05/08/2024 11:08 AM EST EKG reviewed by Dr Zamroa Go Zamora MD ECG ORDERABLES Final Result * Falls Risk Assessment (07/09/2023) Pathologist [facility] Falls Risk Assessment abstracted Historical Provider HEALTH MAINTENANCE Final Result * Depression Screening (07/09/2023) Pathologist [facility] Depression Screening abstracted Historical Provider HEALTH [...] Documents on File Type Date Recorded 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
--- OUTSIDE RECORDS SUMMARY | 2024-07-13 16:09 | XMS_ITS | Encounter Summary ---
Author Organization [facility] Address [address] [place] [address] Care Team Providers Care Legal File Clerk Name Role Phone Go Zamora MD Primary Care Provider [phone] Reason for Visit * Reason Onset Date Comments provider call back 06/11/2024 Encounter Details Date Type Department Care Team (Late st Contact Info) Description 06/11/2024 [facility] [address] [place] [phone] Go Zamora MD [address] [place] [phone] provider call back Social History Tobacco Use [...] - 06/15/2024 10:44 AM EDT Brayan David [phone] from [facility] General surgery is calling back [...] Lm to cb - Please put thru [phone] * Cary Cueto - 06/12/2024 11:51 AM EDT Jordana from [facility] General surgeon's office is calling office [...] - 06/11/2024 2:18 PM EDT Jordana from [facility] General surgeon's office. She stated Dr Zamora and the soft sugar operator head have cleared him. See previous message. But [...] documented as of this encounter Care Teams Legal File Clerk Relationship Specialty Start Date End Date Go Zamora MD [address] [place] [phone] PCP - General Internal Medicine 05/06/24 documented as of this encounter
--- NOTE | 2024-07-13 17:04 | ED.ABDPAIN ---
HPI - Abdominal Pain General Chief Complaint: Abdominal Pain Stated Complaint: abd pain Time Seen by Provider: 07/13/24 16:51 History of Present Illness HPI narrative: Patient is a 79-year-old male presented today with having abdominal pain worse over the suprapubic left side left lower quadrant area. Patient had a hernia surgery done with Dr. Stern on July 09. He was given 30 tablets of Chadwick 07/25/2024. Unfortunately patient ran out of his medication. Now complaining of increasing pain. He is able to tolerate p.o.. Had a bowel movement yesterday. He is from home. Complaining of pain localized to the area history of COPD. History of abdominal aortic aneurysm without any rupture. Related Data Home Medications ?Medication ?Instructions ?Recorded ?Confirmed albuterol sulfate 90 mcg/actuation 2 puff inhalation Q6H PRN 11/08/22 07/02/24 aerosol inhaler (Ventolin HFA) Shortness Of Breath Or Wheezing aspirin 81 mg tablet,delayed 81 mg PO DAILY 11/08/22 07/02/24 release clopidogrel 75 mg tablet 75 mg PO DAILY 04/16/23 07/02/24 famotidine 20 mg tablet 20 mg PO BID 03/12/24 07/02/24 fluticasone fur. 200 mcg-umeclid 1 ea inhalation DAILY 03/12/24 07/02/24 62.5 mcg-vilant 25 mcg inhalat.powder (Trelegy Ellipta) chlorthalidone 25 mg tablet 25 mg PO DAILY 07/02/24 07/02/24 Previous Rx's ?Medication ?Instructions ?Recorded nebulizers #1 ea 11/14/22 tamsulosin 0.4 mg capsule (Flomax) 0.4 mg PO BEDTIME #90 caps 01/16/24 ipratropium 0.5 mg-albuterol 3 mg 3 ml inhalation QID PRN for 06/30/24 (2.5 mg base)/3 mL nebulization wheezing #180 mL soln hydrocodone 5 mg-acetaminophen 325 1 tab PO Q4-6H PRN pain #30 tabs 07/09/24 mg tablet oxycodone 5 mg tablet 5 mg PO Q8H PRN pain #7 tabs 07/13/24 Allergies Allergy/AdvReac Type Severity Reaction Status Date / Time No Known Allergies Allergy Verified 07/13/24 15:50 Review of Systems Review of Systems Positive abdominal pain Yes all other systems are reviewed and are negative FORMERLY [facility], 1928–1983 Past Medical History Attestation statement: The following information was validated with the patient. Medical History No natural teeth Mixed simple and mucopurulent chronic bronchitis Bronchiectasis PVD (peripheral vascular disease) with claudication Elevated cholesterol Personal history of COVID-19 BRANDAN (generalized anxiety disorder) Oxygen dependent Urinary retention Abdominal pain Respiratory failure with hypoxia COPD (chronic obstructive pulmonary disease) Mucus plugging of bronchi PAD (peripheral artery disease) AAA (abdominal aortic aneurysm) without rupture Emphysema lung Surgical History (Updated 07/13/24 @ 21:20 by Kathie Kaufman MD) Hx of colonoscopy Hx of hand surgery (~1984) Hernia, ventral (04/19/23) Social History Social History Household Members: Other Household Members Other:: Adult son Housing: House Are you a primary career portals teacher to a significant other at home: No Do you presently have visiting nurse or other home services: No Alcohol intake: former Patient Tobacco Use Status: Former Tobacco user Tobacco use type: Cigarette Second Hand Smoke Exposure: No Advance Directives: No Advance Directives Information Provided: Yes Do you have a plan to hurt others: No Plan service: No Physical Exam ED Vital Signs: Vital Signs - 24 hr 07/13/24 15:49 07/13/24 16:37 07/13/24 18:48 Temperature 98.5 F 97.9 F 98.7 F Pulse Rate 99 81 91 Respiratory Rate 12 22 H 22 H Blood Pressure 137/76 113/63 128/64 Pulse Oximetry 95 95 93 Oxygen Delivery Method Nasal Cannula Nasal Cannula Nasal Cannula Oxygen Flow Rate 3 3 07/13/24 20:31 Temperature 97.6 F Pulse Rate 77 Respiratory Rate 20 Blood Pressure 126/62 Pulse Oximetry 97 Oxygen Delivery Method Nasal Cannula with ETCO2 Oxygen Flow Rate BMI result Body Mass Index 24.2 Appearance: Alert. Oriented X3. No acute distress. Eyes: Pupils equal, round and reactive to light. ENT: Pharynx normal. Neck: Normal inspection. Neck supple. No lymph nodes noted. No crepitus CVS: Normal heart rate and rhythm. Pulses normal. Normal S1 and S2 Respiratory: No respiratory distress. Breath sounds normal. No Wheezing. No rales Abdomen: Positive left lower quadrant pain. Wound was intact. No rigidity. No distention. good BS x4 Skin: Skin warm and dry. Normal skin color. Normal skin turgor. Extremities: No lower extremity edema. Neurovascular intact to all extremities. No Lacerations. No Rash Neuro: Oriented X 3. No motor deficit. No sensory deficit. Moving all extermities. No slurred speech Medical Decision Making Medical Decision Making [facility] Narrative: 79 years old presents today with having abdominal pain over the incision site. Patient was given 30 tablets of Percocet about 7 days ago he has been using 2 tablets every 4 hours and ran out of pills. Complaining of pain localized to the area there is no vomiting there some nausea. Patient from home. My examination the site did not look infected there is no gross discharge it seems to be healing. A CT scan of the abdomen was done. It appears to have lots of postoperative changes. I discussed the CT finding with the surgeon. Discussed the labs with the surgeon. Feel comfortable with discharge follow-up on an outpatient basis additional pain medication will be given in stable condition Differential Diagnosis Differential Diagnoses: The differential diagnosis associated with the presentation includes Postsurgical pain, infection, obstruction, abscess Admission/Observation Consideration of admission/observation: Escalation of care including admission/observation considered Consult Healthcare Provider Management of the patient was discussed with: Sales Representative [employer] (Surgery) Lab Data [facility] Lab Attestation statement: I reviewed the patient's lab results. 07/13/24 17:19 07/13/24 17:19 Labs: Lab Results 07/13/24 Range/Units 17:19 WBC 6.3 (4.8-10.8) X10*3/uL RBC 3.49 L (4.60-5.80) X10*6/uL Hgb 10.5 L (14.0-18.0) g/dl Hct 32.5 L (42.0-52.0) % MCV 93.1 (80.0-98.0) fL MCH 30.1 (27.0-33.0) pg MCHC 32.3 (31.0-36.0) g/dl RDW 13.2 (11.0-16.0) % Plt Count 265 (160-400) X10*3/uL MPV 10.0 (9.4-12.4) fL Immature Gran % (Auto) 0.9 H (0.0-0.4) % Neut % (Auto) 66.4 (45-73) % Lymph % (Auto) 12.3 L (20-40) % [place] % (Auto) 17.1 H (2-11) % Eos % (Auto) 2.7 (0-4) % Baso % (Auto) 0.6 (0-2) % Lymph # (Auto) 0.8 L (1.2-4.9) X10*3/uL [place] # (Auto) 1.1 (0.1-1.2) X10*3/uL Eos # (Auto) 0.2 (0.0-0.4) X10*3/uL Baso # (Auto) 0.0 (0.0-0.2) X10*3/uL Abs Immat Gran (auto) 0.06 H (0.00-0.03) X10*3/uL Absolute Neuts (auto) 4.2 (2.0-8.3) x10*3/uL Absolute Nucleated RBC 0.000 (0.0-0.012) X10*3/uL Nucleated RBC % (auto) 0.0 (0.0-0.2) /100WBC Sodium 140 (135-145) mmol/L Potassium 4.2 (3.3-5.1) mmol/L Chloride 102 (96-108) mmol/L Carbon Dioxide 32 H (22-29) mmol/L Anion Gap 10 L (12-20) BUN 23 H (9-16) mg/dL Creatinine 0.85 (0.5-1.4) mg/dL Estim Creat Clear Calc 72.7 Estimated GFR > 60 Random Glucose 109 (60-115) mg/dL Calcium 8.9 (8.4-10.2) mg/dL Total Bilirubin 0.5 (0.0-1.0) mg/dL Direct Bilirubin 0.2 (0.0-0.5) mg/dL AST 25 (5-37) U/L ALT 9 (0-40) U/L Alkaline Phosphatase 61 (39-117) U/L Total Protein 7.1 (6.5-8.0) g/dL Albumin 3.6 (3.5-5.0) g/dL Lipase 11 (8-78) U/L Independent Interpretation I performed an independent interpretation of an: CT Scan (No gross obstruction) Radiology Impression Discussion of test interpretation with radiology: I have reviewed the radiologist's reading. External Record Review External record reviewed: Inpatient record Chronic Conditions Recently had hernia surgery Social Determinants Patient?s care significantly limited by Social Determinants of Health including: Problems related to primary support group Medications Administered Discontinued Medications Generic Name Dose Route Start Last Admin Trade Name Freq PRN Reason Stop Dose Admin Sodium Chloride 1,000 mls @ 999 mls/hr 07/13/24 17:15 07/13/24 20:22 Ns IV 07/13/24 18:15 Infused .Q1H1M ABHILASH Infusion Iohexol 100 ml 07/13/24 18:30 07/13/24 18:30 Iohexol 350 Mg/Ml 100 Ml Infus..Btl IV 07/13/24 18:31 85 ml ONCE ONE Administration Ketorolac Tromethamine 15 mg 07/13/24 17:02 07/13/24 17:36 Ketorolac Tromethamine 15 Mg/Ml Vial IVPUSH 07/13/24 17:03 15 mg ONCE ONE Administration Discharge Plan Discharge Clinical Impression: H/O hernia repair Patient Disposition: Home, Self-Care Instructions: Inguinal Hernia Repair (DC) Prescriptions: New oxycodone 5 mg tablet 5 mg PO Q8H PRN (Reason: pain) Qty: 7 0RF Rx Instructions: Partial Fill upon patient request. No Action tamsulosin [Flomax] 0.4 mg capsule 0.4 mg PO BEDTIME Qty: 90 2RF ipratropium-albuterol 0.5 mg-3 mg(2.5 mg base)/3 mL solution for nebulization 3 ml inhalation QID PRN (Reason: for wheezing) Qty: 180 2RF albuterol sulfate [Ventolin HFA] 90 mcg/actuation HFA aerosol inhaler 2 puff inhalation Q6H PRN (Reason: Shortness Of Breath Or Wheezing) aspirin 81 mg Tablet,Delayed Release (Dr/Ec) 81 mg PO DAILY (DME) nebulizers Misc See Rx Instructions .Route Qty: 1 0RF Rx Instructions: As directed famotidine 20 mg tablet 20 mg PO BID Trelegy Ellipta 200-62.5-25 mcg blister with device 1 ea inhalation DAILY chlorthalidone 25 mg tablet 25 mg PO DAILY hydrocodone-acetaminophen 5-325 mg tablet 1 tab PO Q4-6H PRN (Reason: pain) Qty: 30 0RF Rx Instructions: Partial Fill upon patient request. clopidogrel 75 mg tablet 75 mg PO DAILY Referrals: Shaun Stern MD [Physician] - 07/15/24 Print Language: Serbian
[2024-07-13 17:24] LABS: MANUAL DIFF FLAG NO
[2024-07-13 17:27] LABS: Basophils Percent Auto 0.6 % (0-2); Eosinophils Absolute Auto 0.2 X10*3/uL (0.0-0.4); Eosinophils Percent Auto 2.7 % (0-4); Hematocrit 32.5 % (42.0-52.0); Hemoglobin 10.5 g/dl (14.0-18.0); Imm Gran Abs Auto 0.06 X10*3/uL (0.00-0.03); Imm Gran Pct Auto 0.9 % (0.0-0.4); Lymphocytes Absolute Auto 0.8 X10*3/uL (1.2-4.9); Lymphocytes Percent Auto 12.3 % (20-40); Mean Corpuscular HGB Conc 32.3 g/dl (31.0-36.0); Mean Corpuscular Hemoglobin 30.1 pg (27.0-33.0); Mean Corpuscular Volume 93.1 fL (80.0-98.0); Monocytes Absolute Auto 1.1 X10*3/uL (0.1-1.2); Monocytes Percent Auto 17.1 % (2-11); Neutrophils Absolute Auto 4.2 x10*3/uL (2.0-8.3); Neutrophils Percent Auto 66.4 % (45-73); Platelet Count 265 X10*3/uL (160-400); Red Blood Count 3.49 X10*6/uL (4.60-5.80); Red Cell Distribution Width 13.2 % (11.0-16.0); White Blood Count 6.3 X10*3/uL (4.8-10.8)
[2024-07-13] MEDS: Ketorolac Tromethamine 15 MG/ML VIAL IVPUSH (17:36)
[2024-07-13] MEDS: 0.9 % Sodium Chloride 1,000 ML 999 ML IV (17:36)
[2024-07-13 17:43] LABS: Alanine Aminotransferase 9 U/L (0-40); Albumin Level 3.6 g/dL (3.5-5.0); Alkaline Phosphatase 61 U/L (39-117); Anion Gap 10 (12-20); Aspartate Amino Transferase 25 U/L (5-37); Bilirubin Direct 0.2 mg/dL (0.0-0.5); Bilirubin Total 0.5 mg/dL (0.0-1.0); Blood Urea Nitrogen 23 mg/dL (9-16); Calcium 8.9 mg/dL (8.4-10.2); Carbon Dioxide 32 mmol/L (22-29); Chloride 102 mmol/L (96-108); Creatinine Clr Calc Pharmacy 72.7; Estimated Glomerular Filt Rate > 60; Glucose Random 109 mg/dL (60-115); Lipase 11 U/L (8-78); Potassium 4.2 mmol/L (3.3-5.1); Sodium 140 mmol/L (135-145); Total Protein 7.1 g/dL (6.5-8.0)
--- NOTE | 2024-07-13 18:00 | PC.NURSE ---
patient noted to have sutures, dressing dry and intact, no redness or swelling noted
[2024-07-13] MEDS: iohexoL 350 MG/ML 100 ML INFUS..BTL IV (18:30)
== END 2024-07-13 21:51 | disposition home or self-care (01) ==
PROVIDERS: Emergency Provider Emergency Medicine Emergency Medical Services
DX: R10.32 Left lower quadrant pain (principal); J44.9 Chronic obstructive pulmonary disease, unspecified; R11.2 Nausea with vomiting, unspecified; Z79.899 Other long term (current) drug therapy; Z87.891 Personal history of nicotine dependence
CPT/HCPCS: 36415; 74177; 80048; 80076; 83690; 85025; 96361; 96374; 99285; J1885; Q9967

== ENCOUNTER → 2024-07-13 17:03 | Outpatient (BNV) | payer MEDICARE, MEDICAID, SELFPAY | PROVIDERS: Emergency Provider Emergency Medicine Emergency Medical Services; Visit Provider Student in an Organized Health Care Education/Training Program | DX: R10.9 Unspecified abdominal pain (principal) | CPT/HCPCS: 74177 ==

== ENCOUNTER 2024-07-14 10:34 | Outpatient (AMB) | payer MEDICARE, MEDICAID, SELFPAY ==
[2024-07-14 10:57] VITALS: BP 104/58; PULSE 87; O2SAT 92
--- NOTE | 2024-07-14 10:57 | MHC.OFFVIS ---
Vital Signs 07/14/24 10:57 Height 5 ft 10 in BP 104/58 L Blood Pressure Location Lt brachial Position Sitting Pulse 87 Pulse Source Pulse Oximeter Pulse Oximetry (%) 92 Oxygen Delivery Method Nasal Cannula Oxygen Flow Rate 2 Intake Visit Reasons: COPD Intake Note: pt is here for follow up and states he is little short of breath, had hernia surgery on 07/09 and still has pain and sutures Certified Alcohol Counselor Required: No Allergies No Known Allergies Allergy (Verified 07/14/24 11:10) Medication List - Last Reconciled 07/14/24 by Valerie Geronimo MD albuterol sulfate 90 mcg/actuation (Ventolin HFA) 2 puffs inhalation Q6H PRN aspirin 81 mg PO DAILY chlorthalidone 25 mg PO DAILY clopidogrel 75 mg PO DAILY diphenhydramine HCl (Benadryl) 25 mg PO Q8H 5 days famotidine 20 mg PO BID [id number]-[id number] 200-62.5-25 mcg (Trelegy Ellipta) 1 ea inhalation DAILY hydrocodone-acetaminophen 5-325 mg 1 tab PO Q4-6H PRN ipratropium-albuterol 0.5 mg-3 mg(2.5 mg base)/3 mL 3 mL inhalation QID PRN nebulizers As directed oxycodone 5 mg PO Q8H PRN tamsulosin (Flomax) 0.4 mg PO BEDTIME Do you need a note to return to daycare/school/sports/work: No HPI HPI COPD: Details: Richardson is a case of advanced chronic obstructive pulmonary disease, bronchiectases with history of mucus plugging and hypoxemia. He underwent left inguinal herniorrhaphy only a few days ago, it is still painful to the point that he had to go to the emergency room yesterday. Today feeling better without much pain. Breathing status has remained stable with his current regimen and he has had no acute respiratory infection. He is on Trelegy Ellipta once a day as well as DuoNeb updrafts Q 4-6 hours during the daytime, and Ventolin inhaler p.r.n. outdoors. He continues to use O2 2 L/minute 24 hours a day. ON LICENSE OF [facility] Medical History No natural teeth Mixed simple and mucopurulent chronic bronchitis Bronchiectasis PVD (peripheral vascular disease) with claudication Elevated cholesterol Personal history of COVID-19 BRANDAN (generalized anxiety disorder) Oxygen dependent Urinary retention Abdominal pain Respiratory failure with hypoxia COPD (chronic obstructive pulmonary disease) Mucus plugging of bronchi PAD (peripheral artery disease) AAA (abdominal aortic aneurysm) without rupture Emphysema lung Surgical History Hx of colonoscopy Hx of hand surgery (~1984) Hernia, ventral (04/19/23) Social History Household Members: Other Household Members Other:: Adult son Housing: House Are you a primary urgent care nurse practitioner to a significant other at home: No Do you presently have visiting nurse or other home services: No Alcohol intake: former Patient Tobacco Use Status: Former Tobacco user Tobacco use type: Cigarette Second Hand Smoke Exposure: No service: No Review of Systems Const All systems reviewed & are unremarkable except as noted in HPI and below Eyes Reports no additional complaints ENT Reports no additional complaints Card Denies chest pain, Denies irregular heart rhythm, Denies leg edema and Reports dyspnea on exertion Resp Reports as per HPI and Reports dyspnea on exertion GI Reports constipation and Reports dyspepsia Reports no additional complaints Musc Reports other (GENERAL WEAKNESS) Skin/Breast Reports system reviewed and no additional complaints, except as documented Neuro Reports no additional complaints Psych Reports no additional complaints Physical Exam Vital Signs: Last Vital Signs Pulse 87 07/14/24 10:57 BP 104/58 L 07/14/24 10:57 Pulse Ox 92 07/14/24 10:57 Oxygen Delivery Method Nasal Cannula 07/14/24 10:57 Oxygen Flow Rate 2 07/14/24 10:57 Last Vital Signs Temp 97.8 F 01/30/23 08:38 Pulse 109 H 01/30/23 08:38 Resp 24 H 01/30/23 08:38 BP 131/68 01/30/23 08:38 Pulse Ox 94 01/30/23 08:38 O2 Del Method Nasal Cannula 01/30/23 08:38 O2 Flow Rate 3 01/30/23 08:38 BMI result Body Mass Index 23.9 Const General: comfortable (Except for shortness of breath during conversation), no acute distress, alert and awake Orientation/consciousness: patient oriented x3 HEENT Head: Yes normal to inspection General nose exam: No nasal polyps present and No nasal discharge present Face and sinus: Yes sinuses nontender Mouth: oropharynx normal (I DID NOT SEE ANY EXUDATES OR ANY EXCESSIVE MUCUS . ) Teeth and gingiva: edentulous Throat: Yes posterior oropharynx normal Eyes General: appearance normal, both eyes and all related structures Neck Neck: Yes normal visual inspection, Yes no lymphadenopathy, Yes trachea midline and Yes no JVD Thyroid: Thyroid normal Chest Chest palpation & inspection: normal inspection of the chest, normal palpation of entire chest wall and no tenderness Resp Other: PERCUSSION NOTE IS RESONANT, BREATH SOUNDS ARE VERY DISTANT, BUT EQUAL ON BOTH SIDES. NO WHEEZES. A FEW INSPIRATORY CREPS OVER THE BASILAR AREAS . Cardio Palpation: normal PMI Rate: regular rate Rhythm: regular rhythm Heart sounds: no gallops and no murmurs GI Palpation (GI): Soft to palpation, nontender, No hepatosplenomegaly present, no masses and Other GI palpation findings present (HAS SOME DISCOMFORT IN THE LEFT INGUINAL AREA WITH A SMALL BULGE ON COUGHIN) Auscultation: normal bowel sounds Back/Spine/Pelvis Thoracic/Lumbar Spine: thoracic and lumbar spine normal to inspection and thoraco-lumbar ROM limited Skin General skin exam: no rashes or lesions noted Neuro General: patient oriented x3 and no focal motor deficits Cranial nerves: Yes CN's II-XII intact bilaterally Extrem General: Yes normal to inspection, Yes no clubbing, cyanosis or edema and Yes no calf tenderness Psych Other: POOR GENERAL HYGIENE Appearance: disheveled Mental Status: mental status grossly normal Speech and movement: Normal speech and movement present Assessment & Plan Assessment & Plan (1) COPD (chronic obstructive pulmonary disease): Comment: PATIENT HAS ADVANCED CHRONIC OBSTRUCTIVE PULMONARY DISEASE. HE IS PRONE TO HAVE RECURRENT RESPIRATORY INFECTIONS, CAUSING ACUTE EXACERBATIONS. HOWEVER AT PRESENT HIS COPD STATUS IS STABLE . HIS ACTIVITY LEVEL IS LOW BUT HE DOES WALK AROUND IN THE HOUSE. STATUS POST LEFT INGUINAL HERNIORRHAPHY, AND HIS RESPIRATORY STATUS HAS REMAINED STABLE, POSTOPERATIVELY. Code(s): J44.9 - Chronic obstructive pulmonary disease, unspecified Category: Medical Plan: CONTINUE TO USE TRELEGY ELLIPTA 1 INHALATION DAILY VENTOLIN HFA 2 PUFFS Q 6 HOURS P.R.N. WHEN OUTDOORS.. IPRATROPIUM-ALBUTEROL SOLUTION IN THE NEBULIZER Q 4-6 HOURS P.R.N. ( AT LEAST T.I.D.) IN THE HOUSE (2) Respiratory failure with hypoxia: Comment: PATIENT HAS HYPOXEMIA, BEING TREATED WITH OXYGEN SUPPLEMENTATION, 2 L/MINUTE. Code(s): J96.91 - Respiratory failure, unspecified with hypoxia Category: Medical Plan: CONTINUE O2 2 L/MINUTE DURING THE DAY AND AT NIGHT (3) Bronchiectasis: Comment: IN ADDITION TO ADVANCED COPD HE DOES HAVE CHRONIC BRONCHIAL WALL THICKENING, AND BRONCHIECTASIS IN THE LOWER LOBES. Code(s): J47.9 - Bronchiectasis, uncomplicated Category: Medical Plan: ADVISED TO DRINK PLENTY OF FLUID. IPRATROPIUM-ALBUTEROL SOLUTION IN THE NEBULIZER HELPING TO CLEAR HIS MUCUS. Coding Level of Care Code Est Pt Level 3 (81034) Diagnoses COPD (chronic obstructive pulmonary disease) J44.9 Respiratory failure with hypoxia J96.91 Bronchiectasis J47.9
--- OUTSIDE RECORDS SUMMARY | 2024-07-14 12:36 | XMS_ITS | Encounter Summary ---
Author Organization [facility] Address [address] [place] [address] Care Team Providers Care Student Finance Advisor Name Role Phone Go Zamora MD Primary Care Provider Reason for Visit * Reason Onset Date Comments provider call back 06/11/2024 Encounter Details Date Type Department Care Team (Late st Contact Info) Description 06/11/2024 [facility]phone [facility] [address] [place] [phone] Go Zamora MD [address] [place] [phone] provider call back Social History Tobacco Use [...] - 06/15/2024 10:44 AM EDT Brayan David [phone] from [facility] General surgery is calling back regarding the [...] Lm to cb - Please put thru [phone] * Cary Cueto - 06/12/2024 11:51 AM EDT Jordana from [facility] General surgeon's office is calling office back [...] - 06/11/2024 2:18 PM EDT Jordana from [facility] General surgeon's office. She stated Dr Zamora and the sourcing analyst have cleared him. See previous message. But [...] documented as of this encounter Care Teams Student Finance Advisor Relationship Specialty Start Date End Date Go Zamora MD [address] [place] [phone] PCP - General Internal Medicine 05/06/24 documented as of this encounter
--- OUTSIDE RECORDS SUMMARY | 2024-07-14 12:36 | XMS_ITS | Clinical Summary ---
Author Organization [address] Address [address] [place] [phone] Phone Care Team Providers Care Commercial Credit Head Name Role Phone Go Zamora MD Primary Care Provider [phone] Allergies No known active allergies Medications amLODIPine [...] 07/18/2017 Hyperkeratosis 03/04/2013 PAD (peripheral artery disease) [place] [place] COPD (chronic obstructive pu lmonary disease) [place] [place], [facility]) 03/16/2009 Encounters Date Type Department Care Team Description 06/11/2024 [facility] [place] [address] Go Zamora MD provider call back 06/11/2024 Telephone [facility] [address] [facility] [address] [place] [address] Adarsh Arreguin MD pre op question 06/04/2024 Telephone [facility] [address] [place] [address] Marissa Ramires MA Results (Stress echo 06/02/24) 06/02/2024 9:30 AM EDT Ancillary Procedure [facility] [address] [phone] Abnormal EKG; Mixed simple and mucopurulent chronic bronchitis ([facility]24, [facility] [place]); Primary hypertension; Oxygen dependent; PAD (peripheral artery disease) ([facility] [place] Former smoker; PONCE (dyspnea on exertion) 05/14/2024 1:30 PM EST Office Visit [facility] [address] [place] [address] Adarsh Arreguin MD Mixed simple and mucopurulent chronic bronchitis ([facility] [place], [facility]) (Primary Dx); Abnormal EKG; Primary hypertension; Oxygen dependent; PAD (peripheral artery disease) ([facility] [place]); Former smoker; PONCE (dyspnea on exertion) 05/08/2024 10:00 AM EST [facility] [address] [place] [address] Go Zamora MD Mixed simple and mucopurulent chronic bronchitis ([facility] V24, [facility] V28) (Primary Dx); Pre-operative clearance; Abnormal EKG; Left inguinal pain 04/30/2024 Telephone Internal [address] [phone] Go Zamora MD provider call back 04/28/2024 Telephone Internal [address] [address] Go Zamora MD PROVIDER CALL BACK (See 04-23-24 encounter /) 04/23/2024 Telephone Internal [address] [phone] Go Zamora MD provider call back from [...] PROCEDURE: HISTORICAL HAND SURGERY COLONOSCOPY 07/04/2010 PROCEDURE: NC COLONOSCOPY FLX DX W/COLLJ SPEC WHEN PFRMD; COMMENT: Negative/incomplete to 60 cm, limited by hypoxemia Medical History Medical History Date Comments COPD (chronic obstructive pu lmonary disease) ([facility] V[facility], [facility] V28) 03/16/2009 DX:COPD (chronic o bstructive pulmonary disease) ([facility]) Hyperkeratosis 03/04/2013 DX:Hyperkeratosi s PVD (peripheral vascular dis ease) with claudication ([facility] V24) 03/04/2013 DX:PVD (peripheral vascular disease) with claudication ([facility]) Family History Medical History Relation Name [...] Complete blood count (05/08/2024 11:46 AM EST) [facility] WBC 9.6 4.8 - 10.8 K/mcL LAB HEMETOLOGY METHOD 05/08/2024 2:49 PM [facility] RBC 4.50 4.50 - 5.50 M/mcL LAB HEMETOLOGY METHOD 05/08/2024 2:49 PM [facility] Hemoglobin 13.5 13.5 - 17.5 g/dL LAB HEMETOLOGY METHOD 05/08/2024 2:49 PM [facility] Hematocrit 43.7 42.0 - 54.0 % LAB HEMETOLOGY METHOD 05/08/2024 2:49 PM [facility] MCV 96.9 79.0 - 98.0 FL LAB HEMETOLOGY METHOD 05/08/2024 2:49 PM [facility] MCH 29.9 27.0 - 32.0 pcg LAB HEMETOLOGY METHOD 05/08/2024 2:49 PM [facility] MCHC 30.9(L) 32.0 - 37.0 g/dL LAB HEMETOLOGY METHOD 05/08/2024 2:49 PM [facility] RDW 14.2 11.0 - 15.0 % LAB HEMETOLOGY METHOD 05/08/2024 2:49 PM [facility] Platelets 293 130 - 400 K/mcL LAB HEMETOLOGY METHOD 05/08/2024 2:49 PM [facility] MPV 10.6 7.0 - 11.0 FL LAB HEMETOLOGY METHOD 05/08/2024 2:49 PM [facility] NRBC 0.0 <1.0 % LAB HEMETOLOGY METHOD 05/08/2024 2:49 PM EST [facility] NRBC Absolute 0.00 <0.10 K/mcL LAB HEMETOLOGY METHOD 05/08/2024 2:49 PM [facility] Blood Venous blood specimen / Unknown Venipuncture / Unknown 05/08/2024 11:46 AM EST 05/08/2024 11:46 AM EST us Go Zamora MD LAB BLOOD ORDERABLES Final Res ult [facility] [address] [place] [address], * (ABNORMAL) Basic metabolic panel (05/08/2024 11:46 AM EST) Sodium 139 133 - 145 mmol/L LAB CHEMISTRY METHOD 05/08/2024 2:51 PM [facility] Potassium 4.2 3.5 - 5.5 mmol/L LAB CHEMISTRY METHOD 05/08/2024 2:51 PM [facility] Chloride 104 96 - 110 mmol/L LAB CHEMISTRY METHOD 05/08/2024 2:51 PM [facility] CO2 32 21 - 32 mmol/L LAB CHEMISTRY METHOD 05/08/2024 2:51 PM [facility] Anion Gap 3 3 - 11 LAB CHEMISTRY METHOD 05/08/2024 2:51 PM [facility] Glucose 100 70 - 100 mg/dL LAB CHEMISTRY METHOD 05/08/2024 2:51 PM [facility] BUN 29(H) 5 - 25 mg/dL LAB CHEMISTRY METHOD 05/08/2024 2:51 PM [facility] Creatinine 1.03 0.70 - 1.30 mg/dL LAB CHEMISTRY METHOD 05/08/2024 2:51 PM [facility] eGFR 74 >=60 mL/min/1. 73m2 LAB CHEMISTRY METHOD 05/08/2024 2:51 PM EST [facility] Comment:Calculation based on the??Chronic Kidney Disease Epidemiology Collaboration (CKD-EPI) equation refit??without adjustment for race. BUN/Creatinine Ratio 28.2 LAB CHEMISTRY METHOD 05/08/2024 2:51 PM EST [facility] Calcium 9.4 8.5 - 10.5 mg/dL LAB CHEMISTRY METHOD 05/08/2024 2:51 PM EST [facility] Blood Venous blood specimen / Unknown Venipuncture / Unknown 05/08/2024 11:46 AM EST 05/08/2024 11:46 AM EST Go Zamora MD LAB BLOOD ORDERABLES Final Res ult [facility] [address] [place] [address], * ECG 12 lead (05/08/2024 11:08 AM EST) Narrative Go Zamora MD - 05/08/2024 11:08 AM EST EKG reviewed by Dr Zamora Go Zamora MD ECG ORDERABLES Final Result * Falls Risk Assessment (07/09/2023) Pathologist [facility] Falls Risk Assessment abstracted Historical Provider HEALTH MAINTENANCE Final Result * Depression Screening (07/09/2023) Pathologist [facility] Depression Screening abstracted Historical Provider HEALTH MAINTENANCE Final Result * (ABNORMAL) Lipid panel (05/09/2023) Pathologist [facility] LDL/HDL Ratio 4 0 - 4 Triglycerides [...] Documents on File Type Date Recorded Patient Silk Screen Printer Machine Expl anation Health Care Decision (hx) 07/18/2015 AD MIDDLETON DIRECTIVE Health Care Decision (hx) 07/18/2015 AD MIDDLETON DIRECTIVE Health Care Decision (hx) 07/17/2015 AD MIDDLETON DIRECTIVE Health Care Decision (hx) 07/17/2015 AD MIDDLETON DIRECTIVE Care Teams Commercial Credit Head Relationship Specialty Start Date End Date Go Zamora MD [address] [place] [id number] PCP - General Internal Medicine 05/06/24
== END 2024-07-14 11:15 | disposition home or self-care (01) ==
LOC: HO.HPS 10:34
PROVIDERS: PCP Internal Medicine; Visit Provider Internal Medicine
DX: J44.9 Chronic obstructive pulmonary disease, unspecified (principal); J96.91 Respiratory failure, unspecified with hypoxia; J47.9 Bronchiectasis, uncomplicated
CPT/HCPCS: 99213

== ENCOUNTER → 2024-07-14 10:34 | Outpatient (BNVA) | payer MEDICARE, MEDICAID, SELFPAY | PROVIDERS: PCP Internal Medicine; Visit Provider Internal Medicine | DX: J44.9 Chronic obstructive pulmonary disease, unspecified (principal); J96.91 Respiratory failure, unspecified with hypoxia; J47.9 Bronchiectasis, uncomplicated | CPT/HCPCS: 99212 ==

== ENCOUNTER 2024-07-20 09:49 | Outpatient (AMB) | payer MEDICARE, MEDICAID, SELFPAY ==
--- NOTE | 2024-07-20 09:49 | A.OFFVIS_ITS ---
Vital Signs 07/20/24 09:54 Height 5 ft 10 in Weight 149 lb BMI 21.4 BP 110/58 L Blood Pressure Location Rt brachial Position Sitting Pulse 126 H Intake Visit Reasons: S/P LIH w/mesh Intake Note: Patient here s/p open left inguinal herniorrhaphy with Bard mesh. Reports incision healing well. Patient c/o: Surgery: 07-09-2024 Collections Officer Required: No Accompanied by: son Richardson Allergies No Known Allergies Allergy (Verified 07/20/24 09:49) HPI Comments Details: Patient presents for follow up after open left inguinal hernia repair with Bard mesh with Dr. Stern on 07/09/24. Procedure was uncomplicated. He reports feeling overall well and at his baseline. Feels a little short of breath this morning from ambulating from car as no wheelchair available. He has occasional pain at the incision site but has not needed anything for pain in several days. He is eating ok but reports his appetite is a little diminished. Denies nausea or vomiting. He reports moving his bowels ok. [facility] Medical History (Updated 07/14/24 @ 11:14 by Valerie Geronimo MD) No natural teeth Mixed simple and mucopurulent chronic bronchitis Bronchiectasis PVD (peripheral vascular disease) with claudication Elevated cholesterol Personal history of COVID-19 BRANDAN (generalized anxiety disorder) Oxygen dependent Urinary retention Abdominal pain Respiratory failure with hypoxia COPD (chronic obstructive pulmonary disease) Mucus plugging of bronchi PAD (peripheral artery disease) AAA (abdominal aortic aneurysm) without rupture Emphysema lung Surgical History (Updated 07/20/24 @ 13:10 by Jane Marques PA-C) Left inguinal hernia (07/09/24) Hx of colonoscopy Hx of hand surgery (~1984) Hernia, ventral (04/19/23) Social History Household Members: Other Household Members Other:: Adult son Housing: House Are you a primary child care education coordinator to a significant other at home: No Do you presently have visiting nurse or other home services: No Alcohol intake: former Patient Tobacco Use Status: Former Tobacco user Tobacco use type: Cigarette Second Hand Smoke Exposure: No service: No Review of Systems Const Denies chills and Denies fever(s) Card Denies chest pain and Reports dyspnea on exertion Resp Reports dyspnea on exertion GI Reports as per HPI Skin/Breast Denies rash Physical Exam Vital Signs: Last Vital Signs Pulse 126 H 07/20/24 09:54 BP 110/58 L 07/20/24 09:54 BMI result Body Mass Index 21.4 Const Orientation/consciousness: patient oriented x3 Resp Other: on supplemental O2 Effort & Inspection: normal respiratory effort, not labored and no use of accessory muscles GI Other: left inguinal hernia repair incision clean appearing, well healing, no erythema or edema, very mild induration Palpation (GI): Soft to palpation and no guarding Skin General skin exam: no rashes or lesions noted Neuro General: patient oriented x3 and moves all extremities Assessment & Plan Assessment & Plan (1) S/P left inguinal hernia repair: Code(s): Z98.890 - Other specified postprocedural states; Z87.19 - Personal history of other diseases of the digestive system Category: Surgical Plan S/p open left inguinal hernia repair with Bard mesh on 07/09/24. He is doing well post operatively with no issues. His incision is clean appearing and there is no evidence of hernia recurrence. Can follow up in 2 weeks or sooner if needed. Coding Level of Care Code Global (16549) Diagnoses S/P left inguinal hernia repair Z98.890; Z87.19
[2024-07-20 09:54] VITALS: BP 110/58; PULSE 126; BMI 21.4
--- OUTSIDE RECORDS SUMMARY | 2024-07-20 11:07 | XMS_ITS | Clinical Summary ---
Author Organization [address] Address [address] [place] [phone] Phone Care Team Providers Care Museum Or Zoo Director Name Role Phone Go Zamora MD Primary Care Provider [phone] Allergies No known active allergies Medications amLODIPine [...] 07/18/2017 Hyperkeratosis 03/04/2013 PAD (peripheral artery disease) [place] [place] COPD (chronic obstructive pu lmonary disease) [place] [place], [facility] [place]28) 03/16/2009 Encounters Date Type Department Care Team Description 06/11/2024 Telephone [facility] [place] [address] Go Zamora MD provider call back 06/11/2024 Telephone [facility] [address] [facility] [address] [place] [address] Adarsh Arreguin MD pre op question 06/04/2024 Telephone [facility] [address] [place] [address] Marissa Ramires [place] Results (Stress echo 06/02/24) 06/02/2024 9:30 AM EDT Ancillary Procedure [facility] [address] [phone] Abnormal EKG; Mixed simple and mucopurulent chronic bronchitis ([facility] V24, [facility]); Primary hypertension; Oxygen dependent; PAD (peripheral artery disease) ([facility] [place]); Former smoker; PONCE (dyspnea on exertion) 05/14/2024 1:30 PM EST Office Visit [facility] Cardiology [facility] [address] [place] [address] Adarsh Arreguin MD Mixed simple and mucopurulent chronic bronchitis ([facility] [place], [facility] V[facility]) (Primary Dx); Abnormal EKG; Primary hypertension; Oxygen dependent; PAD (peripheral artery disease) ([facility]); Former smoker; PONCE (dyspnea on exertion) 05/08/2024 10:00 AM EST [facility] [address] [place] [address] Go Zamora MD Mixed simple and mucopurulent chronic bronchitis ([facility] V24, [facility] V28) (Primary Dx); Pre-operative clearance; Abnormal EKG; Left inguinal pain 04/30/2024 Telephone Internal [address] [address] Go Zamora MD provider call back 04/28/2024 Telephone Internal [address] [phone] Go Zamora MD PROVIDER CALL BACK (See 04-23-24 encounter /) 04/23/2024 Telephone Internal [address] [phone] Go Zamora MD provider call back from [...] PROCEDURE: HISTORICAL HAND SURGERY COLONOSCOPY 07/04/2010 PROCEDURE: TN COLONOSCOPY FLX DX W/COLLJ SPEC WHEN PFRMD; COMMENT: Negative/incomplete to 60 cm, limited by hypoxemia Medical History Medical History Date Comments COPD (chronic obstructive pu lmonary disease) ([facility] V24, [facility] V28) 03/16/2009 DX:COPD (chronic o bstructive pulmonary disease) ([facility]) Hyperkeratosis 03/04/2013 DX:Hyperkeratosi s PVD (peripheral vascular dis ease) with claudication ([facility] V24) 03/04/2013 DX:PVD (peripheral vascular disease) with claudication ([facility]) Family History Medical History Relation Name [...] Complete blood count (05/08/2024 11:46 AM EST) [facility] WBC 9.6 4.8 - 10.8 K/mcL LAB HEMETOLOGY METHOD 05/08/2024 2:49 PM [facility] RBC 4.50 4.50 - 5.50 M/mcL LAB HEMETOLOGY METHOD 05/08/2024 2:49 PM [facility] Hemoglobin 13.5 13.5 - 17.5 g/dL LAB HEMETOLOGY METHOD 05/08/2024 2:49 PM [facility] Hematocrit 43.7 42.0 - 54.0 % LAB HEMETOLOGY METHOD 05/08/2024 2:49 PM [facility] MCV 96.9 79.0 - 98.0 FL LAB HEMETOLOGY METHOD 05/08/2024 2:49 PM [facility] MCH 29.9 27.0 - 32.0 pcg LAB HEMETOLOGY METHOD 05/08/2024 2:49 PM [facility] MCHC 30.9(L) 32.0 - 37.0 g/dL LAB HEMETOLOGY METHOD 05/08/2024 2:49 PM [facility] RDW 14.2 11.0 - 15.0 % LAB HEMETOLOGY METHOD 05/08/2024 2:49 PM [facility] Platelets 293 130 - 400 K/mcL LAB HEMETOLOGY METHOD 05/08/2024 2:49 PM [facility] MPV 10.6 7.0 - 11.0 FL LAB HEMETOLOGY METHOD 05/08/2024 2:49 PM [facility] NRBC 0.0 <1.0 % LAB HEMETOLOGY METHOD 05/08/2024 2:49 PM EST [facility] NRBC Absolute 0.00 <0.10 K/mcL LAB HEMETOLOGY METHOD 05/08/2024 2:49 PM [facility] Blood Venous blood specimen / Unknown Venipuncture / Unknown 05/08/2024 11:46 AM EST 05/08/2024 11:46 AM EST us Go Zamora MD LAB BLOOD ORDERABLES Final Res ult [facility] [address] [place] [address], * (ABNORMAL) Basic metabolic panel (05/08/2024 11:46 AM EST) Sodium 139 133 - 145 mmol/L LAB CHEMISTRY METHOD 05/08/2024 2:51 PM [facility] Potassium 4.2 3.5 - 5.5 mmol/L LAB CHEMISTRY METHOD 05/08/2024 2:51 PM [facility] Chloride 104 96 - 110 mmol/L LAB CHEMISTRY METHOD 05/08/2024 2:51 PM [facility] CO2 32 21 - 32 mmol/L LAB CHEMISTRY METHOD 05/08/2024 2:51 PM [facility] Anion Gap 3 3 - 11 LAB CHEMISTRY METHOD 05/08/2024 2:51 PM [facility] Glucose 100 70 - 100 mg/dL LAB CHEMISTRY METHOD 05/08/2024 2:51 PM [facility] BUN 29(H) 5 - 25 mg/dL LAB CHEMISTRY METHOD 05/08/2024 2:51 PM [facility] Creatinine 1.03 0.70 - 1.30 mg/dL LAB CHEMISTRY METHOD 05/08/2024 2:51 PM [facility] eGFR 74 >=60 mL/min/1. 73m2 LAB CHEMISTRY METHOD 05/08/2024 2:51 PM EST [facility] Comment:Calculation based on the??Chronic Kidney Disease Epidemiology Collaboration (CKD-EPI) equation refit??without adjustment for race. BUN/Creatinine Ratio 28.2 LAB CHEMISTRY METHOD 05/08/2024 2:51 PM EST [facility] Calcium 9.4 8.5 - 10.5 mg/dL LAB CHEMISTRY METHOD 05/08/2024 2:51 PM EST [facility] Blood Venous blood specimen / Unknown Venipuncture / Unknown 05/08/2024 11:46 AM EST 05/08/2024 11:46 AM EST Go Zaomra MD LAB BLOOD ORDERABLES Final Res ult [facility] [address] [place] [address], * ECG 12 lead (05/08/2024 11:08 AM EST) Narrative Go Zamora MD - 05/08/2024 11:08 AM EST EKG reviewed by Dr Zamora Go Zamora MD ECG ORDERABLES Final Result * Falls Risk Assessment (07/09/2023) Pathologist [facility] Falls Risk Assessment abstracted Historical Provider HEALTH MAINTENANCE Final Result * Depression Screening (07/09/2023) Pathologist [facility] Depression Screening abstracted Historical Provider HEALTH MAINTENANCE [...] Documents on File Type Date Recorded Patient Warehouse Lead Expl anation Health Care Decision (hx) 07/18/2015 AD MIDDLETON DIRECTIVE Health Care Decision (hx) 07/18/2015 AD MIDDLETON DIRECTIVE Health Care Decision (hx) 07/17/2015 AD MIDDLETON DIRECTIVE Health Care Decision (hx) 07/17/2015 AD MIDDLETON DIRECTIVE Care Teams Museum Or Zoo Director Relationship Specialty Start Date End Date Go Zamora MD [address] [place] [id number] PCP - General Internal Medicine 05/06/24
== END 2024-07-20 10:11 | disposition home or self-care (01) ==
LOC: HO.HGS 09:49
PROVIDERS: PCP Internal Medicine; Visit Provider Physician Assistant Surgical
DX: Z98.890 Other specified postprocedural states (principal); Z87.19 Personal history of other diseases of the digestive system
CPT/HCPCS: 99024

== ENCOUNTER → 2024-07-20 09:49 | Outpatient (BNVA) | payer MEDICARE, MEDICAID, SELFPAY | PROVIDERS: PCP Internal Medicine; Visit Provider Physician Assistant Surgical | DX: Z48.815 Encounter for surgical aftercare following surgery on the digestive system (principal); Z98.890 Other specified postprocedural states | CPT/HCPCS: 99212 ==

== ENCOUNTER 2024-07-31 12:46 | Inpatient (IN) | payer MEDICARE, OTHER, SELFPAY ==
[2024-07-31] VITALS (8 sets, daily range): BP systolic 103–150; BP diastolic 47–86; PULSE 89–120; RESP 18–34; TEMP 36.4–37.1; O2SAT 2–96; BMI 23.5; BMI 21.4
--- NOTE | ~2024-07-31 | XR_ITS ---
EXAMINATION: XR CHEST CLINICAL INFORMATION: sob COMPARISON: March 12, 2024. TECHNIQUE: Frontal view of the chest was obtained. FINDINGS: Pulmonary reticular pattern. Prominence of the interstitial markings. No hyperinflation. No gross pleural fissure pneumothorax or consolidation. Cardiomediastinal silhouette size demonstrates a mild prominent aortic arch. Status post kyphoplasty/vertebroplasty procedure in the vertebral body, mid thoracic spine XR/XR chest 1V IMPRESSION: Chronic interstitial lung disease suggesting pulmonary fibrosis in the correct clinical settings. Electronically signed by: Indio Lake MD 07/31/2024 01:28 PM EDT
--- NOTE | ~2024-07-31 | XR_ITS ---
CLINICAL HISTORY: constipation Exam: Supine abdominal radiograph. Comparison: CT abdomen and pelvis July 13, 2024. Findings: Air-filled loops of nondilated large and small bowel are seen throughout the abdomen and pelvis. Moderate gaseous distention of the stomach. Moderate stool throughout the colon. Numerous peripherally calcified gallstones as seen on the patient's CT scan. No infiltrates within the lung bases. Patient has undergone prior vertebral augmentation of a mid to lower thoracic vertebral body. No indirect evidence for free air on this supine exam. Vascular stent within the left femoral artery. Impression: Moderate colonic stool with likely diffuse ileus. This document has been electronically signed by: Forrest Diggs MD on 08/02/2024 09:49:51
--- NOTE | ~2024-07-31 | US_ITS ---
EXAMINATION: US PELVIC, LIMITED/FOLLOW UP CLINICAL INFORMATION: Suprapubic scar. Pain. COMPARISON: None available. TECHNIQUE: Limited imaging through the anterior pelvis is performed FINDINGS: Ultrasound imaging around suprapubic scar reveals an hypoechoic area measuring 3.9 x 3.3 x 3.9 cm likely complex area likely hematoma. No clear anechoic fluid collection seen. No abnormal increased vascularity seen. US/US pelvic limited IMPRESSION: Likely small hematoma. Differential diagnosis thick granulomatous scar in the adipose tissue. There is no increased vascularity seen. Electronically signed by: Aashish Love MD 07/31/2024 04:48 PM EDT
--- NOTE | 2024-07-31 13:05 | ECG_ITS ---
Test Reason : SOB Blood Pressure : */* mmHG Vent. Rate : 115 BPM Atrial Rate : 108 BPM P-R Int : * ms QRS Dur : 82 ms QT Int : 442 ms P-R-T Axes : * 0 63 degrees QTcB Int : 611 ms Normal sinus rhythm Premature atrial complexes Nonspecific ST and T wave abnormality Abnormal ECG When compared with ECG of 12-Mar-2024 11:52, No significant changes seen Referred By: Generic ED Physician Electronically Signed By: EBONY LOFTON
[2024-07-31] MEDS: Albuterol Sulfate 5 MG, Albuterol/Iprat 2.5/0.5MG 3 ML 3 ML INHALE (13:07)
--- OUTSIDE RECORDS SUMMARY | 2024-07-31 13:17 | XMS_ITS | Clinical Summary ---
Author Organization [address] Address [address] [place] [phone] Phone Care Team Providers Care Package Dyeing Machine Operator Name Role Phone Go Zamora MD Primary Care Provider Allergies No known active allergies Medications amLODIPine [...] 07/18/2017 Hyperkeratosis 03/04/2013 PAD (peripheral artery disease) ([facility] V24) COPD (chronic obstructive pu lmonary disease) ([facility] V24, [facility] V28) 03/16/2009 Encounters Date Type Department Care Team Description 06/11/2024 Telephone [facility] [address] [facility] [place] [phone] Go Zamora MD provider call back 06/11/2024 Telephone [facility] [address] [facility] [address] [place] [address] Adarsh Arreguin MD pre op question 06/04/2024 Telephone [facility] [address] [facility] [address] [place] [address] Marissa Ramires MA Results (Stress echo 06/02/24) 06/02/2024 9:30 AM EDT Ancillary Procedure [facility] [address] [phone] Abnormal EKG; Mixed simple and mucopurulent chronic bronchitis ([facility] V24, [facility] V28); Primary hypertension; Oxygen dependent; PAD (peripheral artery disease) ([facility] V24); Former smoker; PONCE (dyspnea on exertion) 05/14/2024 1:30 PM EST Office Visit [facility] [address] [facility] [address] [place] [phone] Adarsh Arreguin MD Mixed simple and mucopurulent chronic bronchitis ([facility] V24, [facility] V28) (Primary Dx); Abnormal EKG; Primary hypertension; Oxygen dependent; PAD (peripheral artery disease) ([facility] V24); Former smoker; PONCE (dyspnea on exertion) 05/08/2024 10:00 AM EST [facility] [address] [facility] [place] [phone] Go Zamora MD Mixed simple and mucopurulent chronic bronchitis ([facility] V24, [facility] V28) (Primary Dx); Pre-operative clearance; Abnormal EKG; Left inguinal pain from Last 3 Months Immunizations Name Administration [...] PROCEDURE: HISTORICAL HAND SURGERY COLONOSCOPY 07/04/2010 PROCEDURE: KS COLONOSCOPY FLX DX W/COLLJ SPEC WHEN PFRMD; COMMENT: Negative/incomplete to 60 cm, limited by hypoxemia Medical History Medical History Date Comments COPD (chronic obstructive pu lmonary disease) ([facility] V24, [facility] V28) 03/16/2009 DX:COPD (chronic o bstructive pulmonary disease) ([facility]) Hyperkeratosis 03/04/2013 DX:Hyperkeratosi s PVD (peripheral vascular dis ease) with claudication ([facility] V24) 03/04/2013 DX:PVD (peripheral vascular disease) with claudication ([facility]) Family History Medical History Relation Name [...] Complete blood count (05/08/2024 11:46 AM EST) [facility] WBC 9.6 4.8 - 10.8 K/[facility] LAB HEMETOLOGY METHOD 05/08/2024 2:49 PM EST [facility] RBC 4.50 4.50 - 5.50 M/[facility] LAB HEMETOLOGY METHOD 05/08/2024 2:49 PM [facility] Hemoglobin 13.5 13.5 - 17.5 g/dL LAB HEMETOLOGY METHOD 05/08/2024 2:49 PM [facility] Hematocrit 43.7 42.0 - 54.0 % LAB HEMETOLOGY METHOD 05/08/2024 2:49 PM [facility] MCV 96.9 79.0 - 98.0 FL LAB HEMETOLOGY METHOD 05/08/2024 2:49 PM [facility] MCH 29.9 27.0 - 32.0 pcg LAB HEMETOLOGY METHOD 05/08/2024 2:49 PM [facility] MCHC 30.9(L) 32.0 - 37.0 g/dL LAB HEMETOLOGY METHOD 05/08/2024 2:49 PM [facility] RDW 14.2 11.0 - 15.0 % LAB HEMETOLOGY METHOD 05/08/2024 2:49 PM [facility] Platelets 293 130 - 400 K/mcL LAB HEMETOLOGY METHOD 05/08/2024 2:49 PM [facility] MPV 10.6 7.0 - 11.0 FL LAB HEMETOLOGY METHOD 05/08/2024 2:49 PM [facility] NRBC 0.0 <1.0 % LAB HEMETOLOGY METHOD 05/08/2024 2:49 PM [facility] NRBC Absolute 0.00 <0.10 K/mcL LAB HEMETOLOGY METHOD 05/08/2024 2:49 PM [facility] Blood Venous blood specimen / Unknown Venipuncture / Unknown 05/08/2024 11:46 AM EST 05/08/2024 11:46 AM EST us Go Zamora MD LAB BLOOD ORDERABLES Final Res ult [facility] [address] [place] [address], [place] [phone] * (ABNORMAL) Basic metabolic panel (05/08/2024 11:46 AM EST) Sodium 139 133 - 145 mmol/L LAB CHEMISTRY METHOD 05/08/2024 2:51 PM EST [facility] Potassium 4.2 3.5 - 5.5 mmol/L LAB CHEMISTRY METHOD 05/08/2024 2:51 PM [facility] Chloride 104 96 - 110 mmol/L LAB CHEMISTRY METHOD 05/08/2024 2:51 PM [facility] CO2 32 21 - 32 mmol/L LAB CHEMISTRY METHOD 05/08/2024 2:51 PM [facility] Anion Gap 3 3 - 11 LAB CHEMISTRY METHOD 05/08/2024 2:51 PM [facility] Glucose 100 70 - 100 mg/dL LAB CHEMISTRY METHOD 05/08/2024 2:51 PM [facility] BUN 29(H) 5 - 25 mg/dL LAB CHEMISTRY METHOD 05/08/2024 2:51 PM [facility] Creatinine 1.03 0.70 - 1.30 mg/dL LAB CHEMISTRY METHOD 05/08/2024 2:51 PM [facility] eGFR 74 >=60 mL/min/1. 73m2 LAB CHEMISTRY METHOD 05/08/2024 2:51 PM [facility] Comment:Calculation based on the??Chronic Kidney Disease Epidemiology Collaboration (CKD-EPI) equation refit??without adjustment for race. BUN/Creatinine Ratio 28.2 LAB CHEMISTRY METHOD 05/08/2024 2:51 PM [facility] Calcium 9.4 8.5 - 10.5 mg/dL LAB CHEMISTRY METHOD 05/08/2024 2:51 PM [facility] Blood Venous blood specimen / Unknown Venipuncture / Unknown 05/08/2024 11:46 AM EST 05/08/2024 11:46 AM EST Result [facility] Go Zamora MD LAB BLOOD ORDERABLES Final Res ult [facility] [address] [place] [address], * ECG 12 lead (05/08/2024 11:08 AM EST) Narrative Go Zamora MD - 05/08/2024 11:08 AM EST EKG reviewed by Dr Zamora Go Zamora MD ECG ORDERABLES Final Result * Falls Risk Assessment (07/09/2023) Pathologist [facility] Falls Risk Assessment abstracted Result [facility] Historical Provider HEALTH MAINTENANCE Final Result * Depression Screening (07/09/2023) Pathologist [facility] Depression Screening abstracted Historical Provider HEALTH MAINTENANCE Final Result * (ABNORMAL) Lipid panel (05/09/2023) [facility] LDL/HDL Ratio 4 0 - 4 Triglycerides 112 0 - 150 mg/dL Cholesterol 213(A) 0 - 200 mg/dL HDL 53 >=40 mg/dL LDL Cholesterol 138(A) 0 - 100 mg/dL Blood Venous blood specimen / Unknown Result [facility] Historical Provider LAB BLOOD ORDERABLES Magdalena l Result from Last 3 Months or Most Recently Relevant to Health Maintenance Insurance [place] MED[place]AGE Advance Directives Documents on File Type Date Recorded Patient Die Setter Expl anation Health Care Decision (hx) 07/18/2015 AD MIDDLETON DIRECTIVE Health Care Decision (hx) 07/18/2015 AD MIDDLETON DIRECTIVE Health Care Decision (hx) 07/17/2015 AD MIDDLETON DIRECTIVE Health Care Decision (hx) 07/17/2015 AD MIDDLETON DIRECTIVE Care Teams Package Dyeing Machine Operator Relationship Specialty Start Date End Date Go Zamora MD [address] [place] [id number] PCP - General Internal Medicine 05/06/24
--- NOTE | 2024-07-31 13:22 | ED_ITS ---
HPI - SOB/Dyspnea General Chief Complaint: Dyspnea Stated Complaint: COPD EXAC,ABD PAIN S/P SURGERY 2 WKS AGO Time Seen by Provider: 07/31/24 13:14 Source: patient, EMS, RN notes reviewed and old records reviewed Mode of arrival: EMS Limitations: no limitations History of Present Illness ED Provider: Vannessa Jeronimo PA-C HPI Narrative: 79-year-old male with history of COPD and recent hernia repair umbilical and inguinal on the left side reporting to the emergency department today for evaluation of shortness of breath. At baseline patient has a dry cough he states that he has been coughing slightly Coyne's 03:00 this morning. He also has little bit of pain around his incisional site in the left lower side. Patient's son who is now at bedside states that solitary bothering him shortly after the narcotic medication stopped he does not think he was on it long enough. He denies noticing any redness or swelling in the area. No symptoms. Patient is denying any fevers or chills but has a decrease in appetite starting today. He has not feel nauseous no vomiting and no diarrhea. He has a rescue inhaler that he uses maybe once a day if needed and a maintenance inhaler. Patient reports that at baseline he is on oxygen at home he uses 2 L at rest and 3 L with exertion. Patient was last hospitalized for COPD exacerbation in February of 2024 here. Pertinent past history: COPD, pneumonia and other (Oxygen dependent, tobacco use) Related Data Home Medications ?Medication ?Instructions ?Recorded ?Confirmed albuterol sulfate 90 mcg/actuation 2 puff inhalation Q6H PRN 11/08/22 07/02/24 aerosol inhaler (Ventolin HFA) Shortness Of Breath Or Wheezing aspirin 81 mg tablet,delayed 81 mg PO DAILY 11/08/22 07/02/24 release clopidogrel 75 mg tablet 75 mg PO DAILY 04/16/23 07/02/24 famotidine 20 mg tablet 20 mg PO BID 03/12/24 07/02/24 fluticasone fur. 200 mcg-umeclid 1 ea inhalation DAILY 03/12/24 07/02/24 62.5 mcg-vilant 25 mcg inhalat.powder (Trelegy Ellipta) chlorthalidone 25 mg tablet 25 mg PO DAILY 07/02/24 07/02/24 Previous Rx's ?Medication ?Instructions ?Recorded nebulizers #1 ea 11/14/22 tamsulosin 0.4 mg capsule (Flomax) 0.4 mg PO BEDTIME #90 caps 01/16/24 ipratropium 0.5 mg-albuterol 3 mg 3 ml inhalation QID PRN for 06/30/24 (2.5 mg base)/3 mL nebulization wheezing #180 mL soln diphenhydramine HCl 25 mg capsule 25 mg PO Q8H 5 days #15 caps 07/13/24 (Benadryl) oxycodone 5 mg tablet 5 mg PO Q8H PRN pain #7 tabs 07/13/24 Allergies Allergy/AdvReac Type Severity Reaction Status Date / Time No Known Allergies Allergy Verified 07/31/24 13:04 [facility] Past Medical History Medical History (Updated 07/31/24 @ 14:56 by Vannessa Jeronimo PA-C) No natural teeth Mixed simple and mucopurulent chronic bronchitis Bronchiectasis PVD (peripheral vascular disease) with claudication Elevated cholesterol Personal history of COVID-19 BRANDAN (generalized anxiety disorder) Oxygen dependent Urinary retention Abdominal pain Respiratory failure with hypoxia COPD (chronic obstructive pulmonary disease) Mucus plugging of bronchi PAD (peripheral artery disease) AAA (abdominal aortic aneurysm) without rupture Emphysema lung Surgical History (Updated 07/20/24 @ 13:10 by Jnae Marques PA-C) Left inguinal hernia (07/09/24) Hx of colonoscopy Hx of hand surgery (~1984) Hernia, ventral (04/19/23) Social History Social History Household Members: Other Household Members Other:: Adult son Housing: House Are you a primary acute care nurse practitioner to a significant other at home: No Do you presently have visiting nurse or other home services: No Alcohol intake: former Patient Tobacco Use Status: Former Tobacco user Tobacco use type: Cigarette Second Hand Smoke Exposure: No Advance Directives: No Advance Directives Information Provided: Yes service: No Physical Exam 2 Vital Signs: Vital Signs: Last Vital Signs Temp 98.7 F 07/31/24 12:58 Pulse 108 H 07/31/24 14:12 Resp 24 H 07/31/24 14:12 BP 129/47 L 07/31/24 14:12 Pulse Ox 2 L 07/31/24 14:12 O2 Del Method Nasal Cannula 07/31/24 14:12 Oxygen Flow Rate 2 07/31/24 12:58 BMI result Body Mass Index 23.5 Chest: Chest palpation & inspection: normal inspection of the chest B reast/axilla inspection: normal inspection of the breasts Resp: Effort & Inspection: able to speak in complete sentences, tachypneic and prolonged expiratory phase Auscultation: bronchovesicular breath sounds Cardio: Jugular venous distension: no JVD Rate: tachycardic Rhythm: r egular rhythm GI: Other: Surgical wound in the left lower suprapubic region approximately 5 cm with no palpable fluid collection or erythema or wound dehiscence present mildly tender to palpation no lymphadenopathy abdomen otherwise soft nontender no guarding Inspection: Yes other Rectal Exam - Male: Yes deferred Skin: General skin exam: elasticity normal Extrem: General: Yes normal to inspection and Yes capillary refill normal Medications Administered Generic Name Dose Route Start Last Admin Trade Name Freq PRN Reason Stop Dose Admin Magnesium Sulfate 2 gm in 50 mls @ 25 mls/hr 07/31/24 13:24 07/31/24 14:27 Magnesium Sulfate/H2o IV 07/31/24 15:23 25 mls/hr ONCE ONE Administration Discontinued Medications Generic Name Dose Route Start Last Admin Trade Name Freq PRN Reason Stop Dose Admin Albuterol Sulfate 5 mg/ 0 mg 07/31/24 13:01 07/31/24 13:07 Albuterol/Ipratropium 3 ml INHALE 07/31/24 13:02 1 each ONCE ONE Administration Medical Decision Making Medical Decision Making MDM Narrative: 79-year-old male with history of COPD with chronic hypoxic respiratory failure on 2 L nasal cannula supplemental O2 at rest 3 L it exertion, tobacco use, presenting to ED with acute shortness of breath since this morning. He reports worsening cough since today. When EMS arrived at his house he was 82% on 2 L. they gave him 125 mg of Solu-Medrol as well as a DuoNeb. Bronchial therapy ordered upon arrival along with mg and basic labs. His SpO2 at baseline on 2 L of oxygen is between 92-94%. Chest x-ray concerning for pneumonia. His surgical sharp does not show any evidence for infection but will order a soft tissue ultrasound of this. He had a postop CT scan of this showing mild seroma on 07/13/24. Patient was re-evaluated after his breathing treatment he is back to his baseline of 2 L of oxygen saturating at 94%. He is no longer tachypneic and is able to speak in full sentences. As patient is the exhibiting any new onset of hypoxia and does not have pleuritic chest pain less concerning for PE-I will defer testing for this at this time. ACS or heart failure still considered, but deemed unlikely as there is no evidence for fluid overload on exam- EKG shows nonspecific ST-T in all of these with no evidence of elevated troponin. He is also denying any chest pain. There is leukocytosis with a left shift. Anemia noted but appears to be around his baseline. No concern for GI bleed at this time. VBG shows evidence for a compensatory respiratory acidosis with compensatory metabolic alkalosis. This is consistent with his COPD as well as acute chronic respiratory failure. Chest x-ray shows evidence of chronic interstitial lung disease has the same appearance as compared to one in February however given overall presentation could be infectious. Ordered azithro and ceftriaxone. Hospitalist Consult place, plan to admit for further observation and treatment for acute on chronic respiratory failure and COPD exacerbation. Dr. Lagunas accepted to medicine. Bed search placed. Differential Diagnosis COPD exacerbation, viral URI, ACS, HF, PNA, and PE. Admission/Observation Consideration of admission/observation: Escalation of care including admission/observation considered Hospitalist consult placed Consult Healthcare Provider Management of the patient was discussed with: Hospitalist Lab Data [facility] Lab Attestation statement: I reviewed the patient's lab results. See MDM 07/31/24 13:34 07/31/24 13:34 Labs: Lab Results 07/31/24 07/31/24 Range/Units 13:34 13:41 WBC 13.4 H (4.8-10.8) X10*3/uL RBC 4.10 L (4.60-5.80) X10*6/uL Hgb 12.5 L (14.0-18.0) g/dl Hct 37.6 L (42.0-52.0) % MCV 91.7 (80.0-98.0) fL MCH 30.5 (27.0-33.0) pg MCHC 33.2 (31.0-36.0) g/dl RDW 14.0 (11.0-16.0) % Plt Count 346 D (160-400) X10*3/uL MPV 9.8 (9.4-12.4) fL Immature Gran % (Auto) 0.4 (0.0-0.4) % Neut % (Auto) 77.0 H (45-73) % Lymph % (Auto) 9.9 L (20-40) % [place] % (Auto) 12.1 H (2-11) % Eos % (Auto) 0.2 (0-4) % Baso % (Auto) 0.4 (0-2) % Lymph # (Auto) 1.3 (1.2-4.9) X10*3/uL [place] # (Auto) 1.6 H (0.1-1.2) X10*3/uL Eos # (Auto) 0.0 (0.0-0.4) X10*3/uL Baso # (Auto) 0.1 (0.0-0.2) X10*3/uL Abs Immat Gran (auto) 0.06 H (0.00-0.03) X10*3/uL Absolute Neuts (auto) 10.3 H (2.0-8.3) x10*3/uL Absolute Nucleated RBC 0.000 (0.0-0.012) X10*3/uL Nucleated RBC % (auto) 0.0 (0.0-0.2) /100WBC Smear Tech's Comments VERIFIED VBG pH 7.41 (7.32-7.43) VBG pCO2 59 mmHg VBG pO2 28 mmHg VBG HCO3 38 H (22-26) mmol/L VBG O2 Saturation 36.0 % VBG Base Excess 11.4 mmol/L Sodium 136 (135-145) mmol/L Potassium 3.1 L D (3.3-5.1) mmol/L Chloride 95 L (96-108) mmol/L Carbon Dioxide 31 H (22-29) mmol/L Anion Gap 13 (12-20) BUN 29 H (9-16) mg/dL Creatinine 0.92 (0.5-1.4) mg/dL Estim Creat Clear Calc 65.1 Estimated GFR > 60 Random Glucose 139 H (60-115) mg/dL Calcium 9.4 (8.4-10.2) mg/dL Total Bilirubin 0.6 (0.0-1.0) mg/dL AST 14 (5-37) U/L ALT 6 (0-40) U/L Alkaline Phosphatase 64 (39-117) U/L Troponin I High Sens < 2.7 (<3.5-35.0) ng/L Total Protein 7.5 (6.5-8.0) g/dL Albumin 4.0 (3.5-5.0) g/dL Influenza Type A (PCR) NEGATIVE (Negative) Influenza Type B (PCR) NEGATIVE (Negative) RSV RNA Qual (PCR) NEGATIVE (Negative) SARS-CoV-2 RNA (RT-PCR) NEGATIVE (Negative) Independent Interpretation I performed an independent interpretation of an: EKG and Plain X-Ray Interpretation: Nonspecific St-T wave abnormality. No ischemia or malignant arrhythmia., chronic interstitial findings on CXR. Radiology Impression Discussion of test interpretation with radiology: I have reviewed the radiologist's reading. Independent Historian Clinical information obtained from an independent historian. History obtained from or confirmed by: EMS and Other (Son who lives with him) External Record Review External record reviewed: Inpatient record Tests considered The following testing was considered but not selected: See MDM Prescription Management I considered prescription management with: Antibiotic Chronic Conditions Patient?s care impacted by: Other (COPD, tobacco use, oxygen dependency) Social Determinants Patient?s care significantly limited by Social Determinants of Health including: Low income Discharge Plan Discharge Clinical Impression: Acute and chronic respiratory failure, Acute exacerbation of chronic obstructive pulmonary disease, O2 dependent Patient Disposition: Admitted As Inpatient Prescriptions: No Action tamsulosin [Flomax] 0.4 mg capsule 0.4 mg PO BEDTIME Qty: 90 2RF ipratropium-albuterol 0.5 mg-3 mg(2.5 mg base)/3 mL solution for nebulization 3 ml inhalation QID PRN (Reason: for wheezing) Qty: 180 2RF albuterol sulfate [Ventolin HFA] 90 mcg/actuation HFA aerosol inhaler 2 puff inhalation Q6H PRN (Reason: Shortness Of Breath Or Wheezing) aspirin 81 mg Tablet,Delayed Release (Dr/Ec) 81 mg PO DAILY (DME) nebulizers Misc See Rx Instructions .Route Qty: 1 0RF Rx Instructions: As directed famotidine 20 mg tablet 20 mg PO BID [place]ola Ellipta 200-62.5-25 mcg blister with device 1 ea inhalation DAILY chlorthalidone 25 mg tablet 25 mg PO DAILY clopidogrel 75 mg tablet 75 mg PO DAILY oxycodone 5 mg tablet 5 mg PO Q8H PRN (Reason: pain) Qty: 7 0RF Rx Instructions: Partial Fill upon patient request. diphenhydramine HCl [Benadryl] 25 mg capsule 25 mg PO Q8H 5 Days Qty: 15 0RF Print Language: Italian
[2024-07-31 13:50] LABS: Basophils Absolute Auto 0.1 X10*3/uL (0.0-0.2); Basophils Percent Auto 0.4 % (0-2); Eosinophils Percent Auto 0.2 % (0-4); Hematocrit 37.6 % (42.0-52.0); Hemoglobin 12.5 g/dl (14.0-18.0); Imm Gran Abs Auto 0.06 X10*3/uL (0.00-0.03); Imm Gran Pct Auto 0.4 % (0.0-0.4); Lymphocytes Absolute Auto 1.3 X10*3/uL (1.2-4.9); Lymphocytes Percent Auto 9.9 % (20-40); MANUAL DIFF FLAG SCAN; Mean Corpuscular HGB Conc 33.2 g/dl (31.0-36.0); Mean Corpuscular Hemoglobin 30.5 pg (27.0-33.0); Mean Corpuscular Volume 91.7 fL (80.0-98.0); Mean Platelet Volume 9.8 fL (9.4-12.4); Monocytes Absolute Auto 1.6 X10*3/uL (0.1-1.2); Monocytes Percent Auto 12.1 % (2-11); Neutrophils Absolute Auto 10.3 x10*3/uL (2.0-8.3); Platelet Count 346 X10*3/uL (160-400); SCAN SMEAR FLAG 1; White Blood Count 13.4 X10*3/uL (4.8-10.8)
[2024-07-31 13:51] LABS: VBG Base Excess 11.4 mmol/L; VBG HCO3 38 mmol/L (22-26); VBG pCO2 59 mmHg; VBG pH 7.41 (7.32-7.43); VBG pO2 28 mmHg
[2024-07-31 14:07] LABS: Alanine Aminotransferase 6 U/L (0-40); Alkaline Phosphatase 64 U/L (39-117); Anion Gap 13 (12-20); Aspartate Amino Transferase 14 U/L (5-37); Bilirubin Total 0.6 mg/dL (0.0-1.0); Blood Urea Nitrogen 29 mg/dL (9-16); Calcium 9.4 mg/dL (8.4-10.2); Carbon Dioxide 31 mmol/L (22-29); Chloride 95 mmol/L (96-108); Creatinine Clr Calc Pharmacy 65.1; Estimated Glomerular Filt Rate > 60; Glucose Random 139 mg/dL (60-115); Potassium 3.1 mmol/L (3.3-5.1); Sodium 136 mmol/L (135-145); Total Protein 7.5 g/dL (6.5-8.0)
[2024-07-31 14:12] LABS: SLIDE REVIEW VERIFIED
[2024-07-31 14:16] LABS: Troponin-I High Sensitivity < 2.7 ng/L (<3.5-35.0)
[2024-07-31] MEDS: Magnesium Sulfate/H2O 2 GM/50 ML PIGGYBACK IV (14:27)
[2024-07-31 14:32] LABS: Venous Blood Gas Refer to POC result
[2024-07-31 14:39] LABS: Influenza A PCR NEGATIVE (Negative); Influenza B PCR NEGATIVE (Negative); Resp Syncy Virus RNA Qual PCR NEGATIVE (Negative); SARS COV2 PCR INHOUSE NEGATIVE (Negative)
--- NOTE | 2024-07-31 15:04 | P.HPHOSP_ITS ---
History of Present Illness Date of Service: 07/31/24 Chief Complaint: sob 79M PMH chronic hypoxic and hypercapnic respiratory failure on 2-3 L home O2 due to COPD, peripheral arterial disease, AAA, GERD, BPH, chronic anemia presented with shortness breath. Shortness breath began 03:00 on day of presentation. States he was feeling well day prior to presentation. Shortness of breath we will confirm sleep. Denies cough, fever does report some chills. Denies chest pain. In ED, chest x-ray with chronic interstitial lung disease suggesting pulmonary fibrosis. VBG showing chronic hypercapnia. Review of Systems 2 Review of Systems: Yes all other systems are reviewed and are negative [facility] Medical History No natural teeth Mixed simple and mucopurulent chronic bronchitis Bronchiectasis PVD (peripheral vascular disease) with claudication Elevated cholesterol Personal history of COVID-19 BRANDAN (generalized anxiety disorder) Oxygen dependent Urinary retention Abdominal pain Respiratory failure with hypoxia COPD (chronic obstructive pulmonary disease) Mucus plugging of bronchi PAD (peripheral artery disease) AAA (abdominal aortic aneurysm) without rupture Emphysema lung Surgical History Left inguinal hernia (07/09/24) Hx of colonoscopy Hx of hand surgery (~1984) Hernia, ventral (04/19/23) Social History Household Members: Other Household Members Other:: Adult son Housing: House Are you a primary care nurse rn to a significant other at home: No Do you presently have visiting nurse or other home services: No Alcohol intake: former Patient Tobacco Use Status: Former Tobacco user Tobacco use type: Cigarette Second Hand Smoke Exposure: No Advance Directives: No Advance Directives Information Provided: Yes service: No Meds Allergies Allergy/AdvReac Type Severity Reaction Status Date / Time No Known Allergies Allergy Verified 07/31/24 13:04 Active Medications: Current Medications Acetaminophen (Acetaminophen 325 Mg Tablet) 650 mg PO Q6H PRN PRN Reason: Pain, Mild 1-3,fever,headache Albuterol/Ipratropium (Albuterol/Iprat 2.5/0.5mg 3 Ml Ampul.Neb) 3 ml INHALE RQ4H WHILE AWAKE PRN PRN Reason: sob Azithromycin (Azithromycin 500 Mg Tablet) 500 mg PO Q24H [facility] Calcium Carbonate (Calcium Carbonate 750 Mg Tab.Chew) 750 mg PO Q4H PRN PRN Reason: Heartburn Ceftriaxone Sodium (Ceftriaxone Sodium 1 Gm Vial) 1 gm IVPUSH Q24H [facility] Enoxaparin Sodium (Enoxaparin Sodium 40 Mg/0.4 Ml Syringe) 40 mg SUBCUT Q24H REPLACED BY [facility] Magnesium Sulfate (Magnesium Sulfate/H2o) 2 gm in 50 mls @ 25 mls/hr IV ONCE ONE Stop: 07/31/24 15:23 Last Admin: 07/31/24 14:27 Dose: 25 mls/hr Magnesium Hydroxide (Milk Of Magnesia 30 Ml Oral.Susp) 30 ml PO DAILY PRN PRN Reason: Constipation Melatonin (Melatonin 3 Mg Tablet) 6 mg PO BEDTIME PRN PRN Reason: Insomnia Methylprednisolone Sodium Succinate (Methylprednisolone Sod Succ 40 Mg/Ml Vial) 40 mg IVPUSH Q12H REPLACED BY [facility] Potassium Chloride (Potassium Chloride Er 20 Meq Tab.Er.Prt) 40 meq PO ONCE ONE Stop: 07/31/24 15:02 Sodium Chloride (0.9 % Sodium Chloride Flush 3 Ml Syringe) 3 ml IVFLUSH QSHIFT REPLACED BY [facility] Home Medications ?Medication ?Instructions ?Recorded ?Confirmed ?Last Taken ?Type albuterol sulfate 90 mcg/actuation 2 puff inhalation Q6H PRN 11/08/22 07/02/24 04/19/23 History aerosol inhaler (Ventolin HFA) Shortness Of Breath Or Wheezing aspirin 81 mg tablet,delayed 81 mg PO DAILY 11/08/22 07/02/24 07/07/24 History release clopidogrel 75 mg tablet 75 mg PO DAILY 04/16/23 07/02/24 07/04/24 History famotidine 20 mg tablet 20 mg PO BID 03/12/24 07/02/24 07/09/24 07:30 History fluticasone fur. 200 mcg-umeclid 1 ea inhalation DAILY 03/12/24 07/02/24 07/09/24 07:30 History 62.5 mcg-vilant 25 mcg inhalat.powder (Trelegy Ellipta) chlorthalidone 25 mg tablet 25 mg PO DAILY 07/02/24 07/02/24 07/09/24 07:30 History Physical Exam 2 Vital Signs and Narrative: Vital Signs: Last Vital Signs Temp 98.7 F 07/31/24 12:58 Pulse 108 H 07/31/24 14:12 Resp 24 H 07/31/24 14:12 BP 129/47 L 07/31/24 14:12 Pulse Ox 2 L 07/31/24 14:12 O2 Del Method Nasal Cannula 07/31/24 14:12 Oxygen Flow Rate 2 07/31/24 12:58 BMI result Body Mass Index 23.5 General: AO X 3, frail, short of breath Resp: Wheezing bilateral, some accessory muscles used CVS: S1,S2,RRR GI: soft, non tender, non distended Neuro: motor grossly intact, alert Psych: appropriate affect, appropriate insight Results Labs 07/31/24 13:34 07/31/24 13:34 Labs: Laboratory Results - last 24 hr 07/31/24 07/31/24 13:34 13:41 MCV 91.7 MCH 30.5 MCHC 33.2 RDW 14.0 Plt Count 346 D MPV 9.8 Immature Gran % (Auto) 0.4 Neut % (Auto) 77.0 H Lymph % (Auto) 9.9 L Jack % (Auto) 12.1 H Eos % (Auto) 0.2 Baso % (Auto) 0.4 Lymph # (Auto) 1.3 Jack # (Auto) 1.6 H Eos # (Auto) 0.0 Baso # (Auto) 0.1 Abs Immat Gran (auto) 0.06 H Absolute Neuts (auto) 10.3 H Absolute Nucleated RBC 0.000 Nucleated RBC % (auto) 0.0 Smear Tech's Comments VERIFIED VBG pH 7.41 VBG pCO2 59 VBG pO2 28 VBG HCO3 38 H VBG O2 Saturation 36.0 VBG Base Excess 11.4 Anion Gap 13 Estim Creat Clear Calc 65.1 Estimated GFR > 60 Random Glucose 139 H Calcium 9.4 Total Bilirubin 0.6 AST 14 ALT 6 Alkaline Phosphatase 64 Total Protein 7.5 Albumin 4.0 Influenza Type A (PCR) NEGATIVE Influenza Type B (PCR) NEGATIVE RSV RNA Qual (PCR) NEGATIVE SARS-CoV-2 RNA (RT-PCR) NEGATIVE Imaging Radiologist's Impressions: Impressions Chest X-Ray 07/31/24 13:05 IMPRESSION: Chronic interstitial lung disease suggesting pulmonary fibrosis in the correct clinical settings. Electronically signed by: Indio Lake MD 07/31/2024 01:28 PM EDT RP Assessment and Plan (1) COPD (chronic obstructive pulmonary disease): Status: Acute Plan 79M PMH chronic hypoxic and hypercapnic respiratory failure on 2-3 L home O2 due to COPD, peripheral arterial disease, AAA, GERD, BPH, chronic anemia presented with shortness breath Chronic hypoxic and hypercapnic respiratory failure due to COPD with acute decompensation Steroids, DuoNebs, empiric ceftriaxone azithromycin-no obvious bacterial infection Peripheral vascular disease Antiplatelet BPH Flomax DVT prophylaxis with Lovenox Full Code Quality Stroke Does the patient have a stroke diagnosis?: No VTE Prior VTE?: No VTE Risk Level:: Medical - moderate - high VTE Device Contraindication: Treatment Not Indicated VTE Drug Contraindication: N/A - Med Ordered
[2024-07-31] MEDS: Azithromycin 500 MG TABLET PO (15:11)
[2024-07-31] MEDS: cefTRIAXone sodium 1 GM VIAL IVPUSH (15:11)
[2024-07-31] MEDS: Acetaminophen 325 MG TABLET 650 MG PO (15:34)
[2024-07-31] MEDS: methylPREDNISolone Sod Succ 40 MG/ML VIAL IVPUSH (15:50)
[2024-07-31] MEDS: Potassium Chloride ER 20 MEQ TAB.ER.PRT 40 MEQ PO (15:50)
[2024-07-31] MEDS: 0.9 % Sodium Chloride Flush 3 ML SYRINGE IVFLUSH (15:51)
--- NOTE | 2024-07-31 18:20 | PHA.MEDREC ---
Addendum entered by Micha Singh 07/31/24 18:24: reviewed Original Note: Pharmacy Consult ? Medication Reconciliation Pharmacy has completed the medication reconciliation. Spoke with patient and he was a poor historian and told us to speak with his son. I called patients son (Kyle) and he was able to confirm what his dad takes for medications.
--- NOTE | 2024-07-31 19:01 | PC.NURSE ---
Pt brought to overflow from main at approx 1600. A&Ox3. 2LNC, intermittent loose cough. SOB on exertion. Pt offers no complaints of pain or difficulty breathing. Pt missing teeth - reports eating a regular diet at baseline, no dentures, careful with diet. Call sommer within reach, safety precautions in place.
[2024-07-31] MEDS: Benzonatate 100 MG CAPSULE PO (23:18)
[2024-08-01 03:26] VITALS: BP 115/63; PULSE 82; RESP 20; TEMP 36.4; O2SAT 96
[2024-08-01] MEDS: methylPREDNISolone Sod Succ 40 MG/ML VIAL IVPUSH ×2 (04:09→16:32)
[2024-08-01 06:47] LABS: Hemoglobin 11.3 g/dl (14.0-18.0); Mean Corpuscular HGB Conc 33.2 g/dl (31.0-36.0); Mean Corpuscular Hemoglobin 30.5 pg (27.0-33.0); Mean Corpuscular Volume 91.9 fL (80.0-98.0); Mean Platelet Volume 10.4 fL (9.4-12.4); Platelet Count 308 X10*3/uL (160-400); Red Cell Distribution Width 14.1 % (11.0-16.0); White Blood Count 12.4 X10*3/uL (4.8-10.8)
[2024-08-01 06:55] LABS: Anion Gap 13 (12-20); Blood Urea Nitrogen 35 mg/dL (9-16); Calcium 9.1 mg/dL (8.4-10.2); Carbon Dioxide 27 mmol/L (22-29); Chloride 101 mmol/L (96-108); Creatinine Clr Calc Pharmacy 58.6; Estimated Glomerular Filt Rate > 60; Glucose Random 131 mg/dL (60-115); Potassium 3.5 mmol/L (3.3-5.1); Sodium 137 mmol/L (135-145)
[2024-08-01 08:00] VITALS: BP 121/60; PULSE 75; RESP 18; TEMP 36.2; O2SAT 96
[2024-08-01] MEDS: 0.9 % Sodium Chloride Flush 3 ML SYRINGE IVFLUSH ×2 (08:44→16:32)
[2024-08-01] MEDS: Clopidogrel Bisulfate 75 MG TABLET PO (08:44)
[2024-08-01] MEDS: cefTRIAXone sodium 1 GM VIAL IVPUSH (08:44)
[2024-08-01] MEDS: Aspirin Enteric Coated 81 MG TABLET.DR PO (08:44)
[2024-08-01] MEDS: Enoxaparin Sodium 40 MG/0.4 ML SYRINGE SUBCUT (08:44)
--- NOTE | 2024-08-01 10:04 | P.PNIM_ITS ---
Subjective Subjective Date of Service: 08/01/24 Interval History: still sob Physical Exam 2 Vital Signs: Vital Signs: Last Vital Signs Temp 97.2 F 08/01/24 08:00 Pulse 75 08/01/24 08:00 Resp 18 08/01/24 08:00 BP 121/60 08/01/24 08:00 Pulse Ox 96 08/01/24 08:00 O2 Del Method Room Air 08/01/24 08:00 O2 Flow Rate 1.5 08/01/24 03:26 Oxygen Flow Rate 2 07/31/24 12:58 BMI result Body Mass Index 21.4 General: AO X 3, no acute distress Resp: diminshed bilateral, no accessory muscles used CVS: S1,S2,RRR GI: soft, non tender, non distended Neuro: motor grossly intact, alert Psych: appropriate affect, appropriate insight Objective Data Active Medications Acetaminophen (Acetaminophen 325 Mg Tablet) 650 mg PO Q6H PRN PRN Reason: Pain, Mild 1-3,fever,headache Last Admin: 07/31/24 15:34 Dose: 650 mg Documented By: MANDY Albuterol/Ipratropium (Albuterol/Iprat 2.5/0.5mg 3 Ml Ampul.Neb) 3 ml INHALE RQ4H WHILE AWAKE PRN PRN Reason: sob Aspirin (Aspirin Enteric Coated 81 Mg Tablet.) 81 mg PO DAILY ON LICENSE OF [facility] Last Admin: 08/01/24 08:44 Dose: 81 mg Documented By: RHONDA Azithromycin (Azithromycin 500 Mg Tablet) 500 mg PO Q24H ON LICENSE OF [facility] Benzonatate (Benzonatate 100 Mg Capsule) 100 mg PO TID PRN PRN Reason: Cough Last Admin: 07/31/24 23:18 Dose: 100 mg Documented By: RAYSHAWN Calcium Carbonate (Calcium Carbonate 750 Mg Tab.Chew) 750 mg PO Q4H PRN PRN Reason: Heartburn Ceftriaxone Sodium (Ceftriaxone Sodium 1 Gm Vial) 1 gm IVPUSH Q24H ON LICENSE OF [facility] Last Admin: 08/01/24 08:44 Dose: 1 gm Documented By: RHONDA Clopidogrel Bisulfate (Clopidogrel Bisulfate 75 Mg Tablet) 75 mg PO DAILY ON LICENSE OF [facility] Last Admin: 08/01/24 08:44 Dose: 75 mg Documented By: RHONDA Enoxaparin Sodium (Enoxaparin Sodium 40 Mg/0.4 Ml Syringe) 40 mg SUBCUT Q24H ON LICENSE OF [facility] Last Admin: 08/01/24 08:44 Dose: 40 mg Documented By: RHONDA Fluticasone/Umeclidinium/Vilanterol (Fluticasone/Umeclidinium/Vilanterol 200/62.5/25 Blst.W.Dev) 1 puff INHALE RDAILY ON LICENSE OF [facility] Last Admin: 08/01/24 07:56 Dose: Not Given Documented By: BRIDGER Non-Admin Reason: pharmacy called for med Guaifenesin/Dextromethorphan (Guaifenesin Dm 100/10/5 Ml 5 Ml Syrup) 5 ml PO Q4H PRN PRN Reason: Cough Magnesium Hydroxide (Milk Of Magnesia 30 Ml Oral.Susp) 30 ml PO DAILY PRN PRN Reason: Constipation Melatonin (Melatonin 3 Mg Tablet) 6 mg PO BEDTIME PRN PRN Reason: Insomnia Methylprednisolone Sodium Succinate (Methylprednisolone Sod Succ 40 Mg/Ml Vial) 40 mg IVPUSH Q12H ON LICENSE OF [facility] Last Admin: 08/01/24 04:09 Dose: 40 mg Documented By: RAYSHAWN Sodium Chloride (0.9 % Sodium Chloride Flush 3 Ml Syringe) 3 ml IVFLUSH QSHIFT ON LICENSE OF [facility] Last Admin: 08/01/24 08:44 Dose: 3 ml Documented By: RHONDA Labs 08/01/24 05:58 08/01/24 05:58 Labs: Laboratory Results - last 24 hr 07/31/24 07/31/24 08/01/24 13:34 13:41 05:58 MCV 91.7 91.9 MCH 30.5 30.5 MCHC 33.2 33.2 RDW 14.0 14.1 Plt Count 346 D 308 MPV 9.8 10.4 Immature Gran % (Auto) 0.4 Neut % (Auto) 77.0 H Lymph % (Auto) 9.9 L Woods % (Auto) 12.1 H Eos % (Auto) 0.2 Baso % (Auto) 0.4 Lymph # (Auto) 1.3 Woods # (Auto) 1.6 H Eos # (Auto) 0.0 Baso # (Auto) 0.1 Abs Immat Gran (auto) 0.06 H Absolute Neuts (auto) 10.3 H Absolute Nucleated RBC 0.000 0.000 Nucleated RBC % (auto) 0.0 0.0 Smear Tech's Comments VERIFIED VBG pH 7.41 VBG pCO2 59 VBG pO2 28 VBG HCO3 38 H VBG O2 Saturation 36.0 VBG Base Excess 11.4 Anion Gap 13 13 Estim Creat Clear Calc 65.1 58.6 Estimated GFR > 60 > 60 Random Glucose 139 H 131 H Calcium 9.4 9.1 Magnesium 2.0 Total Bilirubin 0.6 AST 14 ALT 6 Alkaline Phosphatase 64 Total Protein 7.5 Albumin 4.0 Influenza Type A (PCR) NEGATIVE Influenza Type B (PCR) NEGATIVE RSV RNA Qual (PCR) NEGATIVE SARS-CoV-2 RNA (RT-PCR) NEGATIVE Assessment and Plan (1) O2 dependent: Status: Acute Plan 79M PMH chronic hypoxic and hypercapnic respiratory failure on 2-3 L home O2 due to COPD, peripheral arterial disease, AAA, GERD, BPH, chronic anemia presented with shortness breath Chronic hypoxic and hypercapnic respiratory failure due to COPD with acute decompensation Steroids, DuoNebs, empiric ceftriaxone azithromycin-no obvious bacterial infection Peripheral vascular disease Antiplatelet BPH Flomax DVT prophylaxis with Lovenox Full Code reason for continued hospitalization:still sob Quality Stroke Does the patient have a stroke diagnosis?: No VTE Prior VTE?: No VTE Risk Level:: Medical - moderate - high VTE Device Contraindication: Treatment Not Indicated VTE Drug Contraindication: N/A - Med Ordered
--- NOTE | 2024-08-01 11:51 | MHC.CM.PN ---
IMM 08/01. Pt self-care, lives at home with his son and niece. Pt has home O2, unsure of supplier. Pts son will transport him home at discharge. Education provided on HCP, pt declines to complete one at this time. Pt states he has PCP but is unsure of their name.
[2024-08-01 15:44] VITALS: BP 165/77; PULSE 91; RESP 18; TEMP 37.2; O2SAT 95
[2024-08-01] MEDS: Azithromycin 500 MG TABLET PO (16:32)
[2024-08-01] MEDS: Melatonin 3 MG TABLET 6 MG PO (19:47)
[2024-08-01] MEDS: guaiFENesin DM 100/10/5 ML 5 ML SYRUP PO (19:49)
[2024-08-01 20:00] VITALS: BP 123/60; PULSE 82; RESP 18; TEMP 36.7; O2SAT 95
[2024-08-02] MEDS: guaiFENesin DM 100/10/5 ML 5 ML SYRUP PO ×2 (00:52→21:43)
[2024-08-02] MEDS: Milk of Magnesia 30 ML ORAL.SUSP PO (00:52)
[2024-08-02] MEDS: Calcium Carbonate 750 MG TAB.CHEW PO ×2 (00:53→15:56)
[2024-08-02 03:45] VITALS: BP 131/61; PULSE 84; RESP 18; TEMP 36.4; O2SAT 95
[2024-08-02] MEDS: methylPREDNISolone Sod Succ 40 MG/ML VIAL IVPUSH ×2 (03:52→14:24)
[2024-08-02] MEDS: 0.9 % Sodium Chloride Flush 3 ML SYRINGE IVFLUSH ×4 (03:54→21:40)
[2024-08-02 07:54] VITALS: BP 129/69; PULSE 75; RESP 20; TEMP 36.6; O2SAT 96
[2024-08-02] MEDS: Fluticasone/Umeclidinium/Vilanterol 200/62.5/25 BLST.W.DEV 1 PUFF INHALE (08:03)
[2024-08-02 08:05] VITALS: PULSE 87; RESP 20; O2SAT 94
--- NOTE | 2024-08-02 08:54 | P.PNIM_ITS ---
Subjective Subjective Date of Service: 08/02/24 Interval History: n/v Physical Exam 2 Vital Signs: Vital Signs: Last Vital Signs Temp 97.9 F 08/02/24 07:54 Pulse 87 08/02/24 08:05 Resp 20 08/02/24 08:05 BP 129/69 08/02/24 07:54 Pulse Ox 96 08/02/24 07:54 O2 Del Method Nasal Cannula 08/02/24 07:54 O2 Flow Rate 2 08/02/24 07:54 Oxygen Flow Rate 2 07/31/24 12:58 BMI result Body Mass Index 21.4 General: AO X 3, no acute distress Resp: diminshed bilateral, no accessory muscles used CVS: S1,S2,RRR GI: soft, non tender, non distended Neuro: motor grossly intact, alert Psych: appropriate affect, appropriate insight Objective Data Active Medications Acetaminophen (Acetaminophen 325 Mg Tablet) 650 mg PO Q6H PRN PRN Reason: Pain, Mild 1-3,fever,headache Last Admin: 07/31/24 15:34 Dose: 650 mg Documented By: MANDY Albuterol/Ipratropium (Albuterol/Iprat 2.5/0.5mg 3 Ml Ampul.Neb) 3 ml INHALE RQ4H WHILE AWAKE PRN PRN Reason: sob Aspirin (Aspirin Enteric Coated 81 Mg Tablet.) 81 mg PO DAILY [facility] Last Admin: 08/01/24 08:44 Dose: 81 mg Documented By: RHONDA Azithromycin (Azithromycin 500 Mg Tablet) 500 mg PO Q24H [facility] Last Admin: 08/01/24 16:32 Dose: 500 mg Documented By: RHONDA Benzonatate (Benzonatate 100 Mg Capsule) 100 mg PO TID PRN PRN Reason: Cough Last Admin: 07/31/24 23:18 Dose: 100 mg Documented By: RAYSHAWN Calcium Carbonate (Calcium Carbonate 750 Mg Tab.Chew) 750 mg PO Q4H PRN PRN Reason: Heartburn Last Admin: 08/02/24 00:53 Dose: 750 mg Documented By: GALEN Ceftriaxone Sodium (Ceftriaxone Sodium 1 Gm Vial) 1 gm IVPUSH Q24H [facility] Last Admin: 08/01/24 08:44 Dose: 1 gm Documented By: RHONDA Clopidogrel Bisulfate (Clopidogrel Bisulfate 75 Mg Tablet) 75 mg PO DAILY [facility] Last Admin: 08/01/24 08:44 Dose: 75 mg Documented By: RHONDA Enoxaparin Sodium (Enoxaparin Sodium 40 Mg/0.4 Ml Syringe) 40 mg SUBCUT Q24H [facility] Last Admin: 08/01/24 08:44 Dose: 40 mg Documented By: RHONDA Fluticasone/Umeclidinium/Vilanterol (Fluticasone/Umeclidinium/Vilanterol 200/62.5/25 Blst.W.Dev) 1 puff INHALE RDAILY [facility] Last Admin: 08/02/24 08:03 Dose: 1 puff Documented By: TOM Guaifenesin/Dextromethorphan (Guaifenesin Dm 100/10/5 Ml 5 Ml Syrup) 5 ml PO Q4H PRN PRN Reason: Cough Last Admin: 08/02/24 00:52 Dose: 5 ml Documented By: GALEN Magnesium Hydroxide (Milk Of Magnesia 30 Ml Oral.Susp) 30 ml PO DAILY PRN PRN Reason: Constipation Last Admin: 08/02/24 00:52 Dose: 30 ml Documented By: GALEN Melatonin (Melatonin 3 Mg Tablet) 6 mg PO BEDTIME PRN PRN Reason: Insomnia Last Admin: 08/01/24 19:47 Dose: 6 mg Documented By: GALEN Methylprednisolone Sodium Succinate (Methylprednisolone Sod Succ 40 Mg/Ml Vial) 40 mg IVPUSH Q12H [facility] Last Admin: 08/02/24 03:52 Dose: 40 mg Documented By: GALEN Sodium Chloride (0.9 % Sodium Chloride Flush 3 Ml Syringe) 3 ml IVFLUSH QSHIFT [facility] Last Admin: 08/02/24 03:54 Dose: 3 ml Documented By: GALEN Labs 08/01/24 05:58 08/01/24 05:58 Microbiology Microbiology Results: Microbiology 07/31/24 15:11 Blood Culture - Preliminary Blood - Venous No growth after 24 hours. 07/31/24 14:58 Blood Culture - Preliminary Blood - Venous No growth after 24 hours. Assessment and Plan (1) O2 dependent: Status: Acute Plan 79M PMH chronic hypoxic and hypercapnic respiratory failure on 2-3 L home O2 due to COPD, peripheral arterial disease, AAA, GERD, BPH, chronic anemia presented with shortness breath Chronic hypoxic and hypercapnic respiratory failure due to COPD with acute decompensation Steroids, DuoNebs, empiric ceftriaxone azithromycin-no obvious bacterial infection Peripheral vascular disease Antiplatelet BPH Flomax DVT prophylaxis with Lovenox Full Code reason for continued hospitalization:still sob Quality Stroke Does the patient have a stroke diagnosis?: No VTE Prior VTE?: No VTE Risk Level:: Medical - moderate - high VTE Device Contraindication: Treatment Not Indicated VTE Drug Contraindication: N/A - Med Ordered
[2024-08-02] MEDS: Clopidogrel Bisulfate 75 MG TABLET PO (08:55)
[2024-08-02] MEDS: cefTRIAXone sodium 1 GM VIAL IVPUSH (08:55)
[2024-08-02] MEDS: polyethylene glycoL 3350 17 GM POWD.PACK PO (08:55)
[2024-08-02] MEDS: Enoxaparin Sodium 40 MG/0.4 ML SYRINGE SUBCUT (08:55)
[2024-08-02] MEDS: Aspirin Enteric Coated 81 MG TABLET.DR PO (08:55)
[2024-08-02] MEDS: bisacodyL 10 MG SUPP.RECT PR (10:59)
[2024-08-02 11:41] VITALS: BP 143/67; PULSE 105; RESP 24; TEMP 36.4; O2SAT 94
[2024-08-02] MEDS: ondansetron HCL 4 MG/2 ML VIAL IVPUSH (14:19)
[2024-08-02 15:33] VITALS: BP 138/69; PULSE 92; RESP 18; TEMP 36.7; O2SAT 95
[2024-08-02] MEDS: Azithromycin 500 MG TABLET PO (15:56)
[2024-08-02 18:42] VITALS: BP 141/61; PULSE 77; RESP 22; TEMP 36.5; O2SAT 96
[2024-08-02] MEDS: Acetaminophen 325 MG TABLET 650 MG PO (23:31)
[2024-08-03] MEDS: methylPREDNISolone Sod Succ 40 MG/ML VIAL IVPUSH ×2 (03:11→15:59)
[2024-08-03 03:14] VITALS: BP 127/61; PULSE 77; RESP 16; TEMP 36.2; O2SAT 95
[2024-08-03 06:17] LABS: Hematocrit 34.7 % (42.0-52.0); Hemoglobin 11.2 g/dl (14.0-18.0); Mean Corpuscular HGB Conc 32.3 g/dl (31.0-36.0); Mean Corpuscular Hemoglobin 30.1 pg (27.0-33.0); Mean Corpuscular Volume 93.3 fL (80.0-98.0); Mean Platelet Volume 10.1 fL (9.4-12.4); Platelet Count 319 X10*3/uL (160-400); Red Blood Count 3.72 X10*6/uL (4.60-5.80); Red Cell Distribution Width 13.9 % (11.0-16.0); White Blood Count 10.7 X10*3/uL (4.8-10.8)
[2024-08-03 06:31] LABS: Anion Gap 12 (12-20); Blood Urea Nitrogen 49 mg/dL (9-16); Calcium 8.3 mg/dL (8.4-10.2); Carbon Dioxide 28 mmol/L (22-29); Chloride 103 mmol/L (96-108); Creatinine Clr Calc Pharmacy 55.1; Estimated Glomerular Filt Rate > 60; Glucose Random 125 mg/dL (60-115); Potassium 4.2 mmol/L (3.3-5.1); Sodium 139 mmol/L (135-145)
[2024-08-03] MEDS: Fluticasone/Umeclidinium/Vilanterol 200/62.5/25 BLST.W.DEV 1 PUFF INHALE (07:53)
[2024-08-03 07:54] VITALS: PULSE 74; RESP 16; O2SAT 95
[2024-08-03 08:00] VITALS: BP 146/69; PULSE 91; RESP 17; TEMP 36.2; O2SAT 94
--- NOTE | 2024-08-03 09:10 | P.PNIM_ITS ---
Subjective Subjective Date of Service: 08/03/24 Interval History: abd discomfort Physical Exam 2 Vital Signs: Vital Signs: Last Vital Signs Temp 97.2 F 08/03/24 08:00 Pulse 91 08/03/24 08:00 Resp 17 08/03/24 08:00 BP 146/69 H 08/03/24 08:00 Pulse Ox 94 08/03/24 08:00 O2 Del Method Nasal Cannula 08/03/24 08:00 O2 Flow Rate 2 08/03/24 08:00 Oxygen Flow Rate 2 07/31/24 12:58 BMI result Body Mass Index 21.4 General: AO X 3, no acute distress Resp: diminshed bilateral, no accessory muscles used CVS: S1,S2,RRR GI: soft, non tender, non distended Neuro: motor grossly intact, alert Psych: appropriate affect, appropriate insight Objective Data Active Medications Acetaminophen (Acetaminophen 325 Mg Tablet) 650 mg PO Q6H PRN PRN Reason: Pain, Mild 1-3,fever,headache Last Admin: 08/02/24 23:31 Dose: 650 mg Documented By: ADELA Albuterol/Ipratropium (Albuterol/Iprat 2.5/0.5mg 3 Ml Ampul.Neb) 3 ml INHALE RQ4H WHILE AWAKE PRN PRN Reason: sob Aspirin (Aspirin Enteric Coated 81 Mg Tablet.Dr) 81 mg PO DAILY [facility] Last Admin: 08/02/24 08:55 Dose: 81 mg Documented By: JOSSY Azithromycin (Azithromycin 500 Mg Tablet) 500 mg PO Q24H [facility] Last Admin: 08/02/24 15:56 Dose: 500 mg Documented By: LYNETTE Benzonatate (Benzonatate 100 Mg Capsule) 100 mg PO TID PRN PRN Reason: Cough Last Admin: 07/31/24 23:18 Dose: 100 mg Documented By: RAYSHAWN Calcium Carbonate (Calcium Carbonate 750 Mg Tab.Chew) 750 mg PO Q4H PRN PRN Reason: Heartburn Last Admin: 08/02/24 15:56 Dose: 750 mg Documented By: LYNETTE Ceftriaxone Sodium (Ceftriaxone Sodium 1 Gm Vial) 1 gm IVPUSH Q24H [facility] Last Admin: 08/02/24 08:55 Dose: 1 gm Documented By: JOSSY Clopidogrel Bisulfate (Clopidogrel Bisulfate 75 Mg Tablet) 75 mg PO DAILY [facility] Last Admin: 08/02/24 08:55 Dose: 75 mg Documented By: JOSSY Enoxaparin Sodium (Enoxaparin Sodium 40 Mg/0.4 Ml Syringe) 40 mg SUBCUT Q24H [facility] Last Admin: 08/02/24 08:55 Dose: 40 mg Documented By: JOSSY Fluticasone/Umeclidinium/Vilanterol (Fluticasone/Umeclidinium/Vilanterol 200/62.5/25 Blst.W.Dev) 1 puff INHALE RDAILY [facility] Last Admin: 08/03/24 07:53 Dose: 1 puff Documented By: AISLINN Guaifenesin/Dextromethorphan (Guaifenesin Dm 100/10/5 Ml 5 Ml Syrup) 5 ml PO Q4H PRN PRN Reason: Cough Last Admin: 08/02/24 21:43 Dose: 5 ml Documented By: ADELA Magnesium Hydroxide (Milk Of Magnesia 30 Ml Oral.Susp) 30 ml PO DAILY PRN PRN Reason: Constipation Last Admin: 08/02/24 00:52 Dose: 30 ml Documented By: GALEN Melatonin (Melatonin 3 Mg Tablet) 6 mg PO BEDTIME PRN PRN Reason: Insomnia Last Admin: 08/01/24 19:47 Dose: 6 mg Documented By: GALEN Methylprednisolone Sodium Succinate (Methylprednisolone Sod Succ 40 Mg/Ml Vial) 40 mg IVPUSH Q12H [facility] Last Admin: 08/03/24 03:11 Dose: 40 mg Documented By: ADELA Ondansetron HCl (Ondansetron Hcl 4 Mg/2 Ml Vial) 4 mg IVPUSH Q6H PRN PRN Reason: Nausea Last Admin: 08/02/24 14:19 Dose: 4 mg Documented By: PHANLYM Sodium Chloride (0.9 % Sodium Chloride Flush 3 Ml Syringe) 3 ml IVFLUSH QSHIFT [facility] Last Admin: 08/02/24 21:40 Dose: 3 ml Documented By: ADELA Labs 08/03/24 06:08 08/03/24 06:08 Labs: Laboratory Results - last 24 hr 08/03/24 06:08 MCV 93.3 MCH 30.1 MCHC 32.3 RDW 13.9 Plt Count 319 MPV 10.1 Absolute Nucleated RBC 0.000 Nucleated RBC % (auto) 0.0 Anion Gap 12 Estim Creat Clear Calc 55.1 Estimated GFR > 60 Random Glucose 125 H Calcium 8.3 L D Microbiology Microbiology Results: Microbiology 07/31/24 15:11 Blood Culture - Preliminary Blood - Venous No growth after 48 hours. 07/31/24 14:58 Blood Culture - Preliminary Blood - Venous No growth after 48 hours. Assessment and Plan (1) O2 dependent: Status: Acute Plan 79M PMH chronic hypoxic and hypercapnic respiratory failure on 2-3 L home O2 due to COPD, peripheral arterial disease, AAA, GERD, BPH, chronic anemia presented with shortness breath Chronic hypoxic and hypercapnic respiratory failure due to COPD with acute decompensation Steroids, DuoNebs, empiric ceftriaxone azithromycin-no obvious bacterial infection mild ileus dulcolax ambulation Peripheral vascular disease Antiplatelet BPH Flomax DVT prophylaxis with Lovenox Full Code reason for continued hospitalization:still sob, abd pain Quality Stroke Does the patient have a stroke diagnosis?: No VTE Prior VTE?: No VTE Risk Level:: Medical - moderate - high VTE Device Contraindication: Treatment Not Indicated VTE Drug Contraindication: N/A - Med Ordered
[2024-08-03] MEDS: 0.9 % Sodium Chloride Flush 3 ML SYRINGE IVFLUSH ×3 (09:21→23:31)
[2024-08-03] MEDS: Enoxaparin Sodium 40 MG/0.4 ML SYRINGE SUBCUT (09:22)
[2024-08-03] MEDS: cefTRIAXone sodium 1 GM VIAL IVPUSH (09:22)
[2024-08-03] MEDS: Clopidogrel Bisulfate 75 MG TABLET PO (09:22)
[2024-08-03] MEDS: Aspirin Enteric Coated 81 MG TABLET.DR PO (09:22)
[2024-08-03] MEDS: bisacodyL 10 MG SUPP.RECT PR (09:23)
--- NOTE | 2024-08-03 11:57 | MHC.CM.PN ---
IMM 08/01/24 Per MD rounds no discharge today. Patient is not medically cleared because he has an Illeus. DP Home self care. Patient's son will provide transportation home.
[2024-08-03 15:19] VITALS: BP 126/70; PULSE 86; RESP 18; TEMP 36.7; O2SAT 95
[2024-08-03] MEDS: Azithromycin 500 MG TABLET PO (15:59)
[2024-08-03] MEDS: guaiFENesin DM 100/10/5 ML 5 ML SYRUP PO ×2 (16:50→23:29)
[2024-08-03 20:00] VITALS: BP 155/76; PULSE 91; RESP 18; TEMP 36.9; O2SAT 93
[2024-08-03] MEDS: Acetaminophen 325 MG TABLET 650 MG PO (23:29)
[2024-08-04] VITALS (7 sets, daily range): BP systolic 142–160; BP diastolic 70–82; PULSE 65–92; RESP 16–20; TEMP 36.3–37; O2SAT 93–100
[2024-08-04] MEDS: methylPREDNISolone Sod Succ 40 MG/ML VIAL IVPUSH ×2 (03:15→15:22)
[2024-08-04] MEDS: Fluticasone/Umeclidinium/Vilanterol 200/62.5/25 BLST.W.DEV 1 PUFF INHALE (07:24)
[2024-08-04] MEDS: 0.9 % Sodium Chloride Flush 3 ML SYRINGE IVFLUSH ×3 (09:27→21:00)
[2024-08-04] MEDS: Aspirin Enteric Coated 81 MG TABLET.DR PO (09:27)
[2024-08-04] MEDS: Enoxaparin Sodium 40 MG/0.4 ML SYRINGE SUBCUT (09:27)
[2024-08-04] MEDS: Clopidogrel Bisulfate 75 MG TABLET PO (09:27)
[2024-08-04] MEDS: cefTRIAXone sodium 1 GM VIAL IVPUSH (09:28)
[2024-08-04] MEDS: guaiFENesin DM 100/10/5 ML 5 ML SYRUP PO ×2 (09:36→15:22)
--- NOTE | 2024-08-04 09:56 | HO.PM.IMPN ---
Subjective Subjective Date of Service: 08/04/24 Interval History: had bm Physical Exam Vital Signs: Vital Signs: Last Vital Signs Temp 97.7 F 08/04/24 07:51 Pulse 77 08/04/24 07:51 Resp 20 08/04/24 07:51 BP 160/70 H 08/04/24 07:51 Pulse Ox 96 08/04/24 07:51 O2 Del Method Nasal Cannula 08/04/24 07:51 O2 Flow Rate 2 08/04/24 07:51 Oxygen Flow Rate 2 07/31/24 12:58 BMI result Body Mass Index 21.4 General: AO X 3, no acute distress Resp: diminshed bilateral, no accessory muscles used CVS: S1,S2,RRR GI: soft, non tender, non distended Neuro: motor grossly intact, alert Psych: appropriate affect, appropriate insight Objective Data Active Medications Acetaminophen (Acetaminophen 325 Mg Tablet) 650 mg PO Q6H PRN PRN Reason: Pain, Mild 1-3,fever,headache Last Admin: 08/03/24 23:29 Dose: 650 mg Documented By: ROSALIO Albuterol/Ipratropium (Albuterol/Iprat 2.5/0.5mg 3 Ml Ampul.Neb) 3 ml INHALE RQ4H WHILE AWAKE PRN PRN Reason: sob Aspirin (Aspirin Enteric Coated 81 Mg Tablet.) 81 mg PO DAILY [facility] Last Admin: 08/04/24 09:27 Dose: 81 mg Documented By: DESHAWN Azithromycin (Azithromycin 500 Mg Tablet) 500 mg PO Q24H [facility] Last Admin: 08/03/24 15:59 Dose: 500 mg Documented By: DESHAWN Benzonatate (Benzonatate 100 Mg Capsule) 100 mg PO TID PRN PRN Reason: Cough Last Admin: 07/31/24 23:18 Dose: 100 mg Documented By: RAYSHAWN Calcium Carbonate (Calcium Carbonate 750 Mg Tab.Chew) 750 mg PO Q4H PRN PRN Reason: Heartburn Last Admin: 08/02/24 15:56 Dose: 750 mg Documented By: LYNETTE Ceftriaxone Sodium (Ceftriaxone Sodium 1 Gm Vial) 1 gm IVPUSH Q24H [facility] Last Admin: 08/04/24 09:28 Dose: 1 gm Documented By: DESHAWN Clopidogrel Bisulfate (Clopidogrel Bisulfate 75 Mg Tablet) 75 mg PO DAILY [facility] Last Admin: 08/04/24 09:27 Dose: 75 mg Documented By: DESHAWN Enoxaparin Sodium (Enoxaparin Sodium 40 Mg/0.4 Ml Syringe) 40 mg SUBCUT Q24H [facility] Last Admin: 08/04/24 09:27 Dose: 40 mg Documented By: DESHAWN Fluticasone/Umeclidinium/Vilanterol (Fluticasone/Umeclidinium/Vilanterol 200/62.5/25 Blst.W.Dev) 1 puff INHALE RDAILY [facility] Last Admin: 08/04/24 07:24 Dose: 1 puff Documented By: BRIDGER Guaifenesin/Dextromethorphan (Guaifenesin Dm 100/10/5 Ml 5 Ml Syrup) 5 ml PO Q4H PRN PRN Reason: Cough Last Admin: 08/04/24 09:36 Dose: 5 ml Documented By: DESHAWN Magnesium Hydroxide (Milk Of Magnesia 30 Ml Oral.Susp) 30 ml PO DAILY PRN PRN Reason: Constipation Last Admin: 08/02/24 00:52 Dose: 30 ml Documented By: GALEN Melatonin (Melatonin 3 Mg Tablet) 6 mg PO BEDTIME PRN PRN Reason: Insomnia Last Admin: 08/01/24 19:47 Dose: 6 mg Documented By: GALEN Methylprednisolone Sodium Succinate (Methylprednisolone Sod Succ 40 Mg/Ml Vial) 40 mg IVPUSH Q12H [facility] Last Admin: 08/04/24 03:15 Dose: 40 mg Documented By: ROSALIO Ondansetron HCl (Ondansetron Hcl 4 Mg/2 Ml Vial) 4 mg IVPUSH Q6H PRN PRN Reason: Nausea Last Admin: 08/02/24 14:19 Dose: 4 mg Documented By: LYNETTE Sodium Chloride (0.9 % Sodium Chloride Flush 3 Ml Syringe) 3 ml IVFLUSH QSHIFT [facility] Last Admin: 08/04/24 09:27 Dose: 3 ml Documented By: DESHAWN Labs 08/03/24 06:08 08/03/24 06:08 Assessment and Plan (1) O2 dependent: Status: Acute Plan 79M PMH chronic hypoxic and hypercapnic respiratory failure on 2-3 L home O2 due to COPD, peripheral arterial disease, AAA, GERD, BPH, chronic anemia presented with shortness breath Chronic hypoxic and hypercapnic respiratory failure due to COPD with acute decompensation Steroids, DuoNebs, empiric ceftriaxone azithromycin-no obvious bacterial infection mild ileus imprvoed with dulcolax ambulation psyllium Peripheral vascular disease Antiplatelet BPH Flomax DVT prophylaxis with Lovenox Full Code reason for continued hospitalization:still sob Quality Stroke Does the patient have a stroke diagnosis?: No VTE Prior VTE?: No VTE Risk Level:: Medical - moderate - high VTE Device Contraindication: Treatment Not Indicated VTE Drug Contraindication: N/A - Med Ordered
[2024-08-04] MEDS: Azithromycin 500 MG TABLET PO (15:22)
[2024-08-04] MEDS: Acetaminophen 325 MG TABLET 650 MG PO (23:04)
[2024-08-05 02:57] VITALS: BP 150/80; PULSE 79; RESP 16; TEMP 36.3; O2SAT 93
[2024-08-05] MEDS: methylPREDNISolone Sod Succ 40 MG/ML VIAL IVPUSH (03:26)
[2024-08-05 05:27] LABS: Hematocrit 37.8 % (42.0-52.0); Hemoglobin 12.1 g/dl (14.0-18.0); Mean Corpuscular Volume 93.8 fL (80.0-98.0); Mean Platelet Volume 9.9 fL (9.4-12.4); Platelet Count 330 X10*3/uL (160-400); Red Blood Count 4.03 X10*6/uL (4.60-5.80); Red Cell Distribution Width 13.7 % (11.0-16.0); White Blood Count 9.6 X10*3/uL (4.8-10.8)
[2024-08-05 05:39] LABS: Anion Gap 11 (12-20); Blood Urea Nitrogen 44 mg/dL (9-16); Calcium 8.5 mg/dL (8.4-10.2); Carbon Dioxide 33 mmol/L (22-29); Chloride 102 mmol/L (96-108); Creatinine Clr Calc Pharmacy 59.9; Estimated Glomerular Filt Rate > 60; Glucose Random 120 mg/dL (60-115); Potassium 4.7 mmol/L (3.3-5.1); Sodium 141 mmol/L (135-145)
[2024-08-05 07:30] VITALS: BP 134/81; PULSE 75; RESP 16; TEMP 36.6; O2SAT 94
[2024-08-05 07:45] VITALS: PULSE 75; RESP 16; O2SAT 97
[2024-08-05] MEDS: Fluticasone/Umeclidinium/Vilanterol 200/62.5/25 BLST.W.DEV 1 PUFF INHALE (07:45)
--- NOTE | 2024-08-05 08:00 | PM.DS ---
DS: Providers Provider Date of Service: 08/05/24 Date of admission: 08/01/24 09:08 Date of discharge: 08/05/24 Primary care physician: Unknown Physician DS: Diagnosis Discharge Diagnosis (1) O2 dependent: Status: Acute DS: Summary Hospital Course Hospital Course: admission hpi Chief Complaint: sob 79M PMH chronic hypoxic and hypercapnic respiratory failure on 2-3 L home O2 due to COPD, peripheral arterial disease, AAA, GERD, BPH, chronic anemia presented with shortness breath. Shortness breath began 03:00 on day of presentation. States he was feeling well day prior to presentation. Shortness of breath we will confirm sleep. Denies cough, fever does report some chills. Denies chest pain. In ED, chest x-ray with chronic interstitial lung disease suggesting pulmonary fibrosis. VBG showing chronic hypercapnia. hospital course 79M with PMH of chronic hypoxic and hypercapnic respiratory failure on 2-3 L home O2 secondary to COPD, peripheral arterial disease, AAA, GERD, BPH, and chronic anemia, presented with shortness of breath and was admitted for COPD exacerbation. Hospital course was complicated by ileus. COPD was managed with corticosteroids and nebulized bronchodilators, with noted improvement. He is currently breathing comfortably at a rate of 16 on his baseline home oxygen of 2-3L. He has completed a 5-day course of steroids, ceftriaxone, and azithromycin. At discharge, he will continue home oxygen and inhaler therapy. Ileus was treated conservatively, has resolved, and the patient has had a bowel movement. He is ready and desires to return home. Continue all other home meds Final diagnoses: Acute on chronic respiratory failure due to COPD exacerbation Ileus Time Attestation Discharge Coordination Time (in mins): 35 Quality: Safe Use of Opioids Does Pt have an Active Cancer Diagnosis on the Problem List?: No Quality: Stroke Does the patient have a stroke diagnosis?: No Physical Exam Vital Signs: Vital Signs: Last Vital Signs Temp 97.8 F 08/05/24 07:30 Pulse 75 08/05/24 07:45 Resp 16 08/05/24 07:45 BP 134/81 08/05/24 07:30 Pulse Ox 94 08/05/24 07:30 O2 Del Method Nasal Cannula 08/05/24 07:30 O2 Flow Rate 2 08/05/24 07:30 Oxygen Flow Rate 2 07/31/24 12:58 BMI result Body Mass Index 21.4 Const: Other: General: AO X 3, no acute distress Resp: CTA bilateral CVS: S1,S2,RRR GI: +BS, NT, no distention Skin: No rash Neuro: motor grossly intact Psych: appropriate affect DS: Data Data Completed and Pending Labs on day of discharge: Laboratory Results - last 24 hr 08/05/24 05:20 WBC 9.6 RBC 4.03 L Hgb 12.1 L Hct 37.8 L MCV 93.8 MCH 30.0 MCHC 32.0 RDW 13.7 Plt Count 330 MPV 9.9 Absolute Nucleated RBC 0.000 Nucleated RBC % (auto) 0.0 Sodium 141 Potassium 4.7 Chloride 102 Carbon Dioxide 33 H Anion Gap 11 L BUN 44 H Creatinine 0.93 Estim Creat Clear Calc 59.9 Estimated GFR > 60 Random Glucose 120 H Calcium 8.5 Preliminary micro results at discharge 07/31/24 15:11 Blood Culture - Preliminary Blood - Venous No growth after 48 hours. 07/31/24 14:58 Blood Culture - Preliminary Blood - Venous No growth after 48 hours. Discharge Plan Discharge Anticipated Discharge Date/Time: 08/05/24 11:21 Patient Disposition: Home, Self-Care Discharge Diagnosis: acute copd exacerbation Referrals: Physician,Unknown J [Physician] - 1 Week Discharge Medications: Continued ipratropium-albuterol 0.5 mg-3 mg(2.5 mg base)/3 mL solution for nebulization 3 ml inhalation QID PRN (Reason: for wheezing) Qty: 180 2RF albuterol sulfate [Ventolin HFA] 90 mcg/actuation HFA aerosol inhaler 2 puff inhalation Q6H PRN (Reason: Shortness Of Breath Or Wheezing) aspirin 81 mg Tablet,Delayed Release (Dr/Ec) 81 mg PO DAILY (DME) nebulizers Misc See Rx Instructions .Route Qty: 1 0RF Rx Instructions: As directed Trelegy Ellipta 200-62.5-25 mcg blister with device 1 ea inhalation DAILY chlorthalidone 25 mg tablet 25 mg PO DAILY alum-mag hydroxide-simeth [Antacid Liquid] 200-200-20 mg/5 mL Suspension 20 ml PO BID PRN (Reason: Acid Reflux) Rx Instructions: administer between meals and at bedtime Daytime Cold-Flu 5-10-325 mg/15 mL Liquid 30 ml PO Q4H PRN (Reason: Cough) clopidogrel 75 mg tablet 75 mg PO DAILY Discharge Orders: Discharge Order (Routine); Ordered 08/05/24 Ordered By: Aburey Laureano Diet: Advance to usual diet Activity on Discharge: As tolerated Stand Alone Forms: Patient Portal Discharge page Print Language: Bulgarian Care Plan Goals: recovery from copd exacerbation Health Concerns: chronic respiratory failure due to copd and on home oxygen Plan of Treatment: You have completed 5 days of antibiotics and 5 days of steroid continue using oxygen and inhalers as before take prednisone as directed follow up with your doctor in a week Assessment: see above Discharge Date/Time: 08/05/24 13:40
[2024-08-05] MEDS: cefTRIAXone sodium 1 GM VIAL IVPUSH (08:13)
[2024-08-05] MEDS: Clopidogrel Bisulfate 75 MG TABLET PO (08:13)
[2024-08-05] MEDS: Aspirin Enteric Coated 81 MG TABLET.DR PO (08:13)
[2024-08-05] MEDS: 0.9 % Sodium Chloride Flush 3 ML SYRINGE IVFLUSH (08:13)
[2024-08-05] MEDS: Psyllium seed 3.7 GM PACKET PO (08:14)
--- NOTE | 2024-08-05 09:03 | MHC.CM.PN ---
IMM 08/05/24 DELIVERED TO BEDSIDE, PT MEDICALLY CLEARED FOR DC HOME SELF CARE AND RESUMP OF HOME O2, PT'S SON WILL TRANSPORT PT AND BRING PORTABLE O2 TANK.
[2024-08-05 13:24] VITALS: BP 167/88; PULSE 75; RESP 18; TEMP 36.7; O2SAT 91
== END 2024-08-05 13:40 | disposition home or self-care (01) | DRG 191 ==
LOC: HO.ED 15:01 → HO.EDOVER 15:04 → HO.IMC 19:15 → HO.S3 08-04 19:30
PROVIDERS: Physician Assistant Medical; Admitting Provider Internal Medicine; Emergency Provider Emergency Medicine; PCP Internal Medicine; Visit Provider Internal Medicine
DX: J44.1 Chronic obstructive pulmonary disease with (acute) exacerbation (principal); K56.7 Ileus, unspecified; D64.9 Anemia, unspecified; N40.0 Benign prostatic hyperplasia without lower urinary tract symptoms; I73.9 Peripheral vascular disease, unspecified; Z20.822 Contact with and (suspected) exposure to COVID-19; Z99.81 Dependence on supplemental oxygen; Z79.02 Long term (current) use of antithrombotics/antiplatelets; Z79.82 Long term (current) use of aspirin; Z79.899 Other long term (current) drug therapy
CPT/HCPCS: 0241U; 36415; 71045; 74018; 76857; 80048; 80053; 82803; 83735; 84484; 85025; 85027; 87040; 93005; 94640; 99285; J0696; J1650; J2405; J2919; J3475

== ENCOUNTER → 2024-07-31 13:05 | Outpatient (BNV) | payer MEDICARE, MEDICAID, SELFPAY | PROVIDERS: Emergency Provider Emergency Medicine; Visit Provider Radiology Diagnostic Radiology | DX: L90.5 Scar conditions and fibrosis of skin (principal); R10.30 Lower abdominal pain, unspecified; J84.9 Interstitial pulmonary disease, unspecified | CPT/HCPCS: 71045; 76857 ==

== ENCOUNTER → 2024-07-31 13:05 | Outpatient (BNV) | payer MEDICARE, MEDICAID, SELFPAY | PROVIDERS: Admitting Provider Internal Medicine; Emergency Provider Emergency Medicine; Visit Provider Internal Medicine | DX: I49.1 Atrial premature depolarization (principal) | CPT/HCPCS: 93010 ==

== ENCOUNTER → 2024-07-31 15:04 | Outpatient (BNV) | payer MEDICARE, MEDICAID, SELFPAY | PROVIDERS: Admitting Provider Internal Medicine; Emergency Provider Emergency Medicine; Visit Provider Internal Medicine | DX: Z99.81 Dependence on supplemental oxygen (principal) | CPT/HCPCS: 99232 ==

== ENCOUNTER 2024-08-01 09:08 | Outpatient (BNV) | payer MEDICARE, MEDICAID, SELFPAY | END 2024-08-02 09:20 | PROVIDERS: Admitting Provider Internal Medicine; Emergency Provider Emergency Medicine; Visit Provider Radiology Diagnostic Radiology | DX: K56.41 Fecal impaction (principal) | CPT/HCPCS: 74018 ==

== ENCOUNTER 2024-08-15 08:58 | Inpatient (IN) | payer MEDICARE, OTHER, SELFPAY ==
[2024-08-15] VITALS (12 sets, daily range): BP systolic 101–158; BP diastolic 54–91; PULSE 100–134; RESP 18–32; TEMP 36.8–38.9; O2SAT 91–95; BMI 21.5
--- NOTE | ~2024-08-15 | XR_ITS ---
CLINICAL HISTORY: cough, SOB 1 view chest x-ray Comparison: CR/SR - XR CHEST 1V - 07/31/24 13:17 EDT Findings: Emphysematous changes and parenchymal scarring noted. No focal pneumonia. Normal size heart. No acute fracture. IMPRESSION: Emphysematous changes and parenchymal scarring noted. No focal pneumonia. This document has been electronically signed by: Rik Naranjo MD on 08/15/2024 10:20:27
--- NOTE | ~2024-08-15 | CT_ITS ---
CLINICAL HISTORY: abd pain, post hernia repair CT abdomen and pelvis with contrast Comparison: CT - CT ABDOMEN PELVIS W IV CON - 08/15/24 09:55 EDT Findings: Severe emphysematous changes are seen at the lung bases. There are multiple hepatic and renal cysts. There is cholelithiasis. There is no evidence of cholecystitis. The rest of the solid organs are unremarkable. No bowel obstruction, pneumoperitoneum, or pneumatosis. There is an infrarenal fusiform abdominal aortic aneurysm with mural thrombus measuring up to 4.9 cm in greatest diameter. There are relatively severe calcific atherosclerotic changes. 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 These findings are unchanged. The patient is status post left inguinal hernia repair. There is bladder wall thickening though the bladder is decompressed. Cystitis is not excluded. The bones are intact. IMPRESSION: 1. Status post left inguinal hernia repair. 2. There may be bladder wall thickening. Cystitis is not excluded. 3. Unchanged infrarenal abdominal aortic aneurysm. 4. Multiple hepatic and renal cysts. 5. Severe emphysematous changes. 6. Cholelithiasis. This document has been electronically signed by: Rik Naranjo MD on 08/15/2024 10:55:46
--- NOTE | 2024-08-15 09:17 | ED_ITS ---
HPI - General Adult General Chief complaint: Abdominal Pain Stated complaint: ABD PAIN Time Seen by Provider: 08/15/24 09:13 Source: patient and EMS Mode of arrival: EMS Limitations: no limitations History of Present Illness ED Provider: Emma Umana PA-C HPI narrative: 79 y.o male with a past medical history of COPD with recent hospital admission for an exacerbation on 2 liters of Oxygen at baseline, bronchiectasis, BPH, AAA, and inguinal hernia repair 1 month ago presents to the ED via EMS with a chief complaint of lower abdominal pain accompanied by dysuria and urinary frequency at 5am this morning. Patient reports needing to go to the bathroom multiple times this morning and had a burning sensation. He states that he has pain along his lower abdomen, and that he was very cold. Patient denies chest pain, dizziness, SOB, or extremity pain. Denies new rashes, or lesions. MD complaint: Lower abdominal pain with dysuria and urinary frequency Location: abdomen Radiation: non-radiation Pain Consistency: constant Relieving factors: none Exacerbating factors: none Associated symptoms: fever/chills Treatments prior to arrival: none Related Data Home Medications ?Medication ?Instructions ?Recorded ?Confirmed albuterol sulfate 90 mcg/actuation 2 puff inhalation Q6H PRN 11/08/22 07/31/24 aerosol inhaler (Ventolin HFA) Shortness Of Breath Or Wheezing aspirin 81 mg tablet,delayed 81 mg PO DAILY 11/08/22 07/31/24 release clopidogrel 75 mg tablet 75 mg PO DAILY 04/16/23 07/31/24 fluticasone fur. 200 mcg-umeclid 1 ea inhalation DAILY 03/12/24 07/31/24 62.5 mcg-vilant 25 mcg inhalat.powder (Trelegy Ellipta) chlorthalidone 25 mg tablet 25 mg PO DAILY 07/02/24 07/31/24 aluminum-mag hydroxide-simethicone 20 ml PO BID PRN Acid Reflux 07/31/24 07/31/24 200 mg-200 mg-20 mg/5 mL oral susp (Antacid Liquid) [id number] 5 30 ml PO Q4H PRN Cough 07/31/24 07/31/24 mg-10 mg-325 mg/15 mL oral liquid (Daytime Cold-Flu) Previous Rx's ?Medication ?Instructions ?Recorded nebulizers #1 ea 11/14/22 ipratropium 0.5 mg-albuterol 3 mg 3 ml inhalation QID PRN for 06/30/24 (2.5 mg base)/3 mL nebulization wheezing #180 mL soln Allergies Allergy/AdvReac Type Severity Reaction Status Date / Time No Known Allergies Allergy Verified 08/15/24 09:19 Review of Systems 2 Constitutional: Constitutional: Reports no additional constitutional complaints, Reports chills, Reports fever(s) and Denies night sweats Eyes: Eyes: Reports no additional eye complaints, Denies blurry vision, Denies change in vision, Denies diplopia, Denies eye discharge, Denies loss of vision and Denies eye pain ENT: Denies dizziness Cardiovascular: Cardiovascular: Reports no additional cardiovascular complaints, Denies chest pain, Denies lightheadedness, Denies Loss of Consciousness and Denies dyspnea Respiratory: Respiratory: Reports no additional respiratory complaints and Denies dyspnea Comments: on 2 liters of oxygen at baseline Gastrointestinal: Gastrointestinal: Reports no additional gastrointestinal complaints, Reports abdominal pain, Denies melena, Denies hematochezia, Denies change in bowel habits and Denies change in stool character Genitourinary: Genitourinary: Reports no additional male genitourinary complaints, Denies hematuria, Reports dysuria and Reports urinary frequency Musculoskeletal: Musculoskeletal: Reports no additional musculoskeletal complaints, Denies numbness and Denies tingling Neurologic: Denies dizziness, Denies loss of vision, Denies numbness and Denies tingling Psychiatric: Psychiatric: Reports no additional psychiatric complaints Endocrine: Endocrine: Reports no additional endocrine complaints Hematologic/Lymphatic: Hematologic/Lymphatic: Reports no additional hematologic/lymphatic complaints Allergic/Immunologic: Allergic/Immunologic: Reports no additional allergic/immunologic complaints [facility] Past Medical History Attestation statement: The following information was validated with the patient. Source: old records reviewed and nursing notes reviewed Medical History O2 dependent No natural teeth Mixed simple and mucopurulent chronic bronchitis Bronchiectasis PVD (peripheral vascular disease) with claudication Elevated cholesterol Personal history of COVID-19 BRANDAN (generalized anxiety disorder) Oxygen dependent Urinary retention Abdominal pain Respiratory failure with hypoxia COPD (chronic obstructive pulmonary disease) Mucus plugging of bronchi PAD (peripheral artery disease) AAA (abdominal aortic aneurysm) without rupture Emphysema lung Surgical History Left inguinal hernia (07/09/24) Hx of colonoscopy Hx of hand surgery (~1984) Hernia, ventral (04/19/23) Social History Social History Household Members: Other Household Members Other:: Adult son Housing: House Are you a primary career center advisor to a significant other at home: No Do you presently have visiting nurse or other home services: No Alcohol intake: former Patient Tobacco Use Status: Former Tobacco user Tobacco use type: Cigarette Smoked in Last 30 Days: No Second Hand Smoke Exposure: No Advance Directives: Yes Advance Directives Information Provided: No Advance Directives on File: No service: No Physical Exam ED Vital Signs: Vital Signs - 24 hr 08/15/24 09:16 08/15/24 10:17 08/15/24 10:41 Temperature 102.1 F H 98.3 F Pulse Rate 134 H 117 H Pulse Rate [Monitor] Respiratory Rate 32 H 30 H Blood Pressure 145/82 H 147/70 H Pulse Oximetry 92 91 L Oxygen Delivery Method Nasal Cannula Nasal Cannula Oxygen Flow Rate 2 08/15/24 11:24 08/15/24 11:27 Temperature 98.4 F Pulse Rate 102 H Pulse Rate [Monitor] 102 H Respiratory Rate 30 H Blood Pressure 115/56 L Pulse Oximetry 95 Oxygen Delivery Method Nasal Cannula Oxygen Flow Rate 2 BMI result Body Mass Index 21.5 Const General: cooperative, alert and awake Nutritional Appearance: well nourished Orientation/consciousness: patient oriented x3 Limitations: no limitations [facility] Head: Yes normal to inspection and Yes atraumatic Ears: hearing grossly normal bilaterally and external ears normal General nose exam: Normal external nose present, no nasal discharge noted and no epistaxis Face and sinus: Yes normal facial exam, No abrasion and No laceration Mouth: Normal oral and palatal mucosa present, no drooling and no muffled voice Eyes General: appearance normal, both eyes and all related structures Periorbital: periorbital findings normal Eyelids: Yes eyelids normal Conjunctivae: conjunctivae normal Pupils: Equal, round and reactive pupils present EOM: EOMs intact bilaterally Neck Neck: Yes normal visual inspection, Yes full ROM and Yes no lymphadenopathy Resp Other: on 2 liters of oxygen at baseline Effort & Inspection: able to speak in complete sentences and Actively coughing (chronic for patient) Cardio Rate: tachycardic Rhythm: regular rhythm GI Palpation (GI): Soft to palpation, not firm, Tenderness to palpation present (GI) suprapubicly, no guarding and not rigid Neuro General: patient oriented x3, moves all extremities and CN's II-XI intact bilaterally Cranial nerves: Yes Equal, round and reactive pupils present Cognition (Neuro): normal cognition Extrem General: Yes normal to inspection, Yes full ROM and Yes capillary refill normal Psych Appearance: grossly normal Mental Status: mental status grossly normal Affect: normal affect Attitude: cooperative Thought process: Normal thought process present Thought content: Normal thought content present Insight: Good insight present (Psych) Medications Administered Discontinued Medications Generic Name Dose Route Start Last Admin Trade Name Freq PRN Reason Stop Dose Admin Ceftriaxone Sodium 1 gm 08/15/24 09:42 08/15/24 09:53 Ceftriaxone Sodium 1 Gm Vial IVPUSH 08/15/24 09:43 1 gm ONCE ONE Administration Acetaminophen 1,000 mg in 100 mls @ 400 mls/hr 08/15/24 09:58 08/15/24 11:02 Ofirmev IV 08/15/24 10:12 Infused ONCE ONE Infusion Lactated Ringer's 1,980 mls @ 1,980 mls/hr 08/15/24 09:58 08/15/24 11:10 Lr 30 ml/kg infuse over 1 hr (1980 ml) 08/15/24 10:57 Infused IV Infusion .Q1H ONE Iohexol 85 ml 08/15/24 10:18 08/15/24 10:19 Iohexol 350 Mg/Ml 100 Ml Infus..Btl IV 08/15/24 10:19 85 ml ONCE ONE Administration Medical Decision Making Medical Decision Making MDM Narrative: Patient is a 79 year old assigned male at with a history of COPD on 2 liters of oxygen at baseline and recently admitted for COPD exacerbation, inguinal hernia repair 1 month ago, AAA, PAD, and bronchiectasis presenting to the emergency department today with lower abdominal pain, fever, chills, and increased urinary urgency / pain with urination. Patient's physical exam was as noted in the physical exam portion of this note. Patient's blood work showed a WBC count of 20.2 with a left shift. Patient's urine showed evidence of infection with >50 WBC, moderate leuks, and 4+ bacteria. Patient's EKG showed sinus tachycardia. Patient's CT abdomen/pelvis showed bladder wall thickening consistent with cystitis. Patient's clinical presentation is most consistent with urosepsis but NOT septic shock (@1130) given his positive UA, elevated WBC count, fever of 102.1, and tachycardia. Patient was given IV ceftriaxone, 30ml/kg bolus of LR, and IV tylenol. I spoke with the hospitalist team who agreed to admission. I explained my physical exam findings as well as all test results to the patient. I answered all questions asked by the patient. Patient verbalized agreement and understanding with this treatment plan and admission. Differential Diagnosis Differential Diagnoses: The differential diagnosis associated with the presentation includes UTI Urosepsis Abdominal pain Fever Admission/Observation Consideration of admission/observation: Escalation of care including admission/observation considered Patient admitted as noted in the MDM Rationale portion of this note. Consult Healthcare Provider Management of the patient was discussed with: Hospitalist (agreed to admission as noted in the MDM Rationale portion of this note. ) Lab Data [facility] Lab Attestation statement: I reviewed the patient's lab results. My interpretation of these results are in the MDM Rationale portion of this note. 08/15/24 09:29 08/15/24 09:28 Labs: Lab Results 08/15/24 08/15/24 08/15/24 Range/Units 09:28 09:29 09:36 WBC 20.2 H (4.8-10.8) X10*3/uL RBC 3.81 L (4.60-5.80) X10*6/uL Hgb 11.6 L (14.0-18.0) g/dl Hct 35.0 L (42.0-52.0) % MCV 91.9 (80.0-98.0) fL MCH 30.4 (27.0-33.0) pg MCHC 33.1 (31.0-36.0) g/dl RDW 13.9 (11.0-16.0) % Plt Count 294 (160-400) X10*3/uL MPV 10.0 (9.4-12.4) fL Immature Gran % (Auto) 0.6 H (0.0-0.4) % Neut % (Auto) 87.9 H (45-73) % Lymph % (Auto) 2.9 L (20-40) % [place] % (Auto) 8.3 (2-11) % Eos % (Auto) 0.1 (0-4) % Baso % (Auto) 0.2 (0-2) % Lymph # (Auto) 0.6 L (1.2-4.9) X10*3/uL [place] # (Auto) 1.7 H (0.1-1.2) X10*3/uL Eos # (Auto) 0.0 (0.0-0.4) X10*3/uL Baso # (Auto) 0.0 (0.0-0.2) X10*3/uL Abs Immat Gran (auto) 0.12 H (0.00-0.03) X10*3/uL Absolute Neuts (auto) 17.8 H (2.0-8.3) x10*3/uL Absolute Nucleated RBC 0.000 (0.0-0.012) X10*3/uL Nucleated RBC % (auto) 0.0 (0.0-0.2) /100WBC Smear Tech's Comments VERIFIED VBG pH 7.44 H (7.32-7.43) VBG pCO2 49 mmHg VBG pO2 27 mmHg VBG HCO3 34 H (22-26) mmol/L VBG O2 Saturation 36.0 % VBG Base Excess 8.6 mmol/L Sodium 143 (135-145) mmol/L Potassium 3.3 D (3.3-5.1) mmol/L Chloride 102 (96-108) mmol/L Carbon Dioxide 30 H (22-29) mmol/L Anion Gap 14 (12-20) BUN 26 H (9-16) mg/dL Creatinine 0.80 (0.5-1.4) mg/dL Estim Creat Clear Calc 69.8 Estimated GFR > 60 Random Glucose 107 (60-115) mg/dL Lactic Acid 1.2 (0.5-2.0) mmol/L Calcium 9.0 (8.4-10.2) mg/dL Total Bilirubin 0.7 (0.0-1.0) mg/dL AST 15 (5-37) U/L ALT 15 (0-40) U/L Alkaline Phosphatase 65 (39-117) U/L Total Protein 7.5 (6.5-8.0) g/dL Albumin 4.0 (3.5-5.0) g/dL Urine Color Yellow Urine Appearance Clear Urine pH 6.5 (5.0-9.0) Ur Specific [place] 1.015 (1.005-1.025) Urine Protein 30 (1+) H (Neg-Trace) mg/dL Urine Glucose (UA) Negative (Negative) mg/dL Urine Ketones Negative (Negative) mg/dL Urine Blood Large (3+) H (Negative) Urine Nitrite Negative (Negative) Ur Leukocyte Esterase Moderate (2+) H (Negative) Urine RBC >20 H (0-2) /HPF Urine WBC >50 H (0-5) /HPF Ur Squamous Epith Cells 0-2 (0-2) /HPF Urine Bacteria 4+ (None Seen) Hyaline Casts 0-2 (0-2) /LPF Influenza Type A (PCR) (Negative) Influenza Type B (PCR) (Negative) RSV RNA Qual (PCR) (Negative) SARS-CoV-2 RNA (RT-PCR) (Negative) 08/15/24 Range/Units 09:39 WBC (4.8-10.8) X10*3/uL RBC (4.60-5.80) X10*6/uL Hgb (14.0-18.0) g/dl Hct (42.0-52.0) % MCV (80.0-98.0) fL MCH (27.0-33.0) pg MCHC (31.0-36.0) g/dl RDW (11.0-16.0) % Plt Count (160-400) X10*3/uL MPV (9.4-12.4) fL Immature Gran % (Auto) (0.0-0.4) % Neut % (Auto) (45-73) % Lymph % (Auto) (20-40) % [place] % (Auto) (2-11) % Eos % (Auto) (0-4) % Baso % (Auto) (0-2) % Lymph # (Auto) (1.2-4.9) X10*3/uL [place] # (Auto) (0.1-1.2) X10*3/uL Eos # (Auto) (0.0-0.4) X10*3/uL Baso # (Auto) (0.0-0.2) X10*3/uL Abs Immat Gran (auto) (0.00-0.03) X10*3/uL Absolute Neuts (auto) (2.0-8.3) x10*3/uL Absolute Nucleated RBC (0.0-0.012) X10*3/uL Nucleated RBC % (auto) (0.0-0.2) /100WBC Smear Tech's Comments VBG pH (7.32-7.43) VBG pCO2 mmHg VBG pO2 mmHg VBG HCO3 (22-26) mmol/L VBG O2 Saturation % VBG Base Excess mmol/L Sodium (135-145) mmol/L Potassium (3.3-5.1) mmol/L Chloride (96-108) mmol/L Carbon Dioxide (22-29) mmol/L Anion Gap (12-20) BUN (9-16) mg/dL Creatinine (0.5-1.4) mg/dL Estim Creat Clear Calc Estimated GFR Random Glucose (60-115) mg/dL Lactic Acid (0.5-2.0) mmol/L Calcium (8.4-10.2) mg/dL Total Bilirubin (0.0-1.0) mg/dL AST (5-37) U/L ALT (0-40) U/L Alkaline Phosphatase (39-117) U/L Total Protein (6.5-8.0) g/dL Albumin (3.5-5.0) g/dL Urine Color Urine Appearance Urine pH (5.0-9.0) Ur Specific [place] (1.005-1.025) Urine Protein (Neg-Trace) mg/dL Urine Glucose (UA) (Negative) mg/dL Urine Ketones (Negative) mg/dL Urine Blood (Negative) Urine Nitrite (Negative) Ur Leukocyte Esterase (Negative) Urine RBC (0-2) /HPF Urine WBC (0-5) /HPF Ur Squamous Epith Cells (0-2) /HPF Urine Bacteria (None Seen) Hyaline Casts (0-2) /LPF Influenza Type A (PCR) NEGATIVE (Negative) Influenza Type B (PCR) NEGATIVE (Negative) RSV RNA Qual (PCR) NEGATIVE (Negative) SARS-CoV-2 RNA (RT-PCR) NEGATIVE (Negative) Independent Interpretation I performed an independent interpretation of an: EKG, Plain X-Ray and CT Scan Interpretation: My interpretation is in agreement with the radiologist's impression of these imaging studies. L CLINICAL HISTORY: cough, SOB 1 view chest x-ray Comparison: CR/SR - XR CHEST 1V - 07/31/24 13:17 EDT Findings: Emphysematous changes and parenchymal scarring noted. No focal pneumonia. Normal size heart. No acute fracture. IMPRESSION: Emphysematous changes and parenchymal scarring noted. No focal pneumonia. This document has been electronically signed by: Rik Naranjo MD on 08/15/2024 10:20:27 Dictated By: Rik Naranjo MD Signed By: Electronically signed by Rik Naranjo MD 08/15/24 1021 Report Number: [id number]: Total DLP = 494.00 mGy-cm CLINICAL HISTORY: abd pain, post hernia repair CT abdomen and pelvis with contrast Comparison: CT - CT ABDOMEN PELVIS W IV CON - 08/15/24 09:55 EDT Findings: Severe emphysematous changes are seen at the lung bases. There are multiple hepatic and renal cysts. There is cholelithiasis. There is no evidence of cholecystitis. The rest of the solid organs are unremarkable. No bowel obstruction, pneumoperitoneum, or pneumatosis. There is an infrarenal fusiform abdominal aortic aneurysm with mural thrombus measuring up to 4.9 cm in greatest diameter. There are relatively severe calcific atherosclerotic changes. 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 These findings are unchanged. The patient is status post left inguinal hernia repair. There is bladder wall thickening though the bladder is decompressed. Cystitis is not excluded. The bones are intact. IMPRESSION: 1. Status post left inguinal hernia repair. 2. There may be bladder wall thickening. Cystitis is not excluded. 3. Unchanged infrarenal abdominal aortic aneurysm. 4. Multiple hepatic and renal cysts. 5. Severe emphysematous changes. 6. Cholelithiasis. This document has been electronically signed by: Rik Naranjo MD on 08/15/2024 10:55:46 Dictated By: Rik Naranjo MD Signed By: Electronically signed by Rik Naranjo MD 08/15/24 1056 I independently interpreted this EKG and am in agreement with the below findings: Vent. Rate: 123 BPM Atrial Rate: 123 BPM P-R Int: 172 ms QRS Dur: 76 ms QT Int: 298 ms P-R-T Axes: 60 4 109 degrees QTcB Int: 426 ms Sinus tachycardia Nonspecific ST and T wave abnormality When compared with ECG of 31-Jul-2024 13:33, Previous ECG has undetermined rhythm, needs review DD/ 1013 Radiology Impression Discussion of test interpretation with radiology: I have reviewed the radiologist's reading. Independent Historian Clinical information obtained from an independent historian. History obtained from or confirmed by: EMS (EMS provided additional history and confirmed the history provided by the patient. ) Critical Care Time Critical Care Time Critical Care Time: Yes Total Critical Care Time: 42 Attestation: I spent 42 minutes of Critical Care Time with this patient. This does not include time spent on separately reported billable procedures. Discharge Plan Discharge Clinical Impression: Urinary tract infection, Sepsis Patient Disposition: Admitted As Inpatient Prescriptions: No Action ipratropium-albuterol 0.5 mg-3 mg(2.5 mg base)/3 mL solution for nebulization 3 ml inhalation QID PRN (Reason: for wheezing) Qty: 180 2RF albuterol sulfate [Ventolin HFA] 90 mcg/actuation HFA aerosol inhaler 2 puff inhalation Q6H PRN (Reason: Shortness Of Breath Or Wheezing) aspirin 81 mg Tablet,Delayed Release (Dr/Ec) 81 mg PO DAILY (DME) nebulizers Misc See Rx Instructions .Route Qty: 1 0RF Rx Instructions: As directed Trelegy Ellipta 200-62.5-25 mcg blister with device 1 ea inhalation DAILY chlorthalidone 25 mg tablet 25 mg PO DAILY alum-mag hydroxide-simeth [Antacid Liquid] 200-200-20 mg/5 mL Suspension 20 ml PO BID PRN (Reason: Acid Reflux) Rx Instructions: administer between meals and at bedtime Daytime Cold-Flu 5-10-325 mg/15 mL Liquid 30 ml PO Q4H PRN (Reason: Cough) clopidogrel 75 mg tablet 75 mg PO DAILY Print Language: Greek
[2024-08-15 09:39] LABS: Basophils Percent Auto 0.2 % (0-2); Eosinophils Percent Auto 0.1 % (0-4); Hemoglobin 11.6 g/dl (14.0-18.0); Imm Gran Abs Auto 0.12 X10*3/uL (0.00-0.03); Imm Gran Pct Auto 0.6 % (0.0-0.4); Lymphocytes Absolute Auto 0.6 X10*3/uL (1.2-4.9); Lymphocytes Percent Auto 2.9 % (20-40); MANUAL DIFF FLAG SCAN; Mean Corpuscular HGB Conc 33.1 g/dl (31.0-36.0); Mean Corpuscular Hemoglobin 30.4 pg (27.0-33.0); Mean Corpuscular Volume 91.9 fL (80.0-98.0); Monocytes Absolute Auto 1.7 X10*3/uL (0.1-1.2); Monocytes Percent Auto 8.3 % (2-11); Neutrophils Absolute Auto 17.8 x10*3/uL (2.0-8.3); Neutrophils Percent Auto 87.9 % (45-73); Platelet Count 294 X10*3/uL (160-400); Red Blood Count 3.81 X10*6/uL (4.60-5.80); Red Cell Distribution Width 13.9 % (11.0-16.0); SCAN SMEAR FLAG 1; White Blood Count 20.2 X10*3/uL (4.8-10.8)
[2024-08-15 09:39] LABS: Appearance Urine Clear; Color Urine Yellow; Glucose Urine UA Negative (Negative); Leukocyte Esterase Urine Moderate (2+) (Negative); Nitrite Urine Negative (Negative); PH 6.5 (5.0-9.0); Specific Gravity - Urine 1.015 (1.005-1.025); UMIC TRIGGER UACC YES; Urine Blood Large (3+) (Negative); Urine Ketones Negative (Negative); Urine Protein 30 (1+) mg/dL (Neg-Trace)
[2024-08-15 09:40] LABS: Venous Blood Gas Refer to POC result
[2024-08-15 09:41] LABS: VBG Base Excess 8.6 mmol/L; VBG HCO3 34 mmol/L (22-26); VBG pCO2 49 mmHg; VBG pH 7.44 (7.32-7.43); VBG pO2 27 mmHg
[2024-08-15 09:44] LABS: Bacteria Urine 4+ (None Seen); Hyaline Casts Urine 0-2 /LPF (0-2); RBC Urine >20 /HPF (0-2); Squamous Epithelial Cell Urine 0-2 /HPF (0-2); UACC Culture Trigger YES; WBC Urine >50 /HPF (0-5)
[2024-08-15 09:52] LABS: Alanine Aminotransferase 15 U/L (0-40); Alkaline Phosphatase 65 U/L (39-117); Anion Gap 14 (12-20); Aspartate Amino Transferase 15 U/L (5-37); Bilirubin Total 0.7 mg/dL (0.0-1.0); Blood Urea Nitrogen 26 mg/dL (9-16); Carbon Dioxide 30 mmol/L (22-29); Chloride 102 mmol/L (96-108); Creatinine Clr Calc Pharmacy 69.8; Estimated Glomerular Filt Rate > 60; Glucose Random 107 mg/dL (60-115); Potassium 3.3 mmol/L (3.3-5.1); Sodium 143 mmol/L (135-145); Total Protein 7.5 g/dL (6.5-8.0)
[2024-08-15 09:53] LABS: Lactic Acid 1.2 mmol/L (0.5-2.0)
[2024-08-15] MEDS: cefTRIAXone sodium 1 GM VIAL IVPUSH ×2 (09:53→21:32)
[2024-08-15 09:56] LABS: SLIDE REVIEW VERIFIED
--- NOTE | 2024-08-15 09:58 | ECG_ITS ---
Test Reason : weakness Blood Pressure : */* mmHG Vent. Rate : 123 BPM Atrial Rate : 123 BPM P-R Int : 172 ms QRS Dur : 76 ms QT Int : 298 ms P-R-T Axes : 60 4 109 degrees QTcB Int : 426 ms Poor data quality Sinus tachycardia Nonspecific ST and T wave abnormality Abnormal ECG When compared with ECG of 31-Jul-2024 13:33, Previous ECG has undetermined rhythm, needs review Referred By: Emma Umana Electronically Signed By: Freddy Velásquez
[2024-08-15] MEDS: LACTATED RINGERS 1980 ML IV (10:10)
[2024-08-15] MEDS: Acetaminophen 1,000 MG/100 ML PIGGYBACK 400 MG IV (10:11)
[2024-08-15] MEDS: iohexoL 350 MG/ML 100 ML INFUS..BTL 85 ML IV (10:19)
[2024-08-15 10:36] LABS: Influenza A PCR NEGATIVE (Negative); Influenza B PCR NEGATIVE (Negative); Resp Syncy Virus RNA Qual PCR NEGATIVE (Negative); SARS COV2 PCR INHOUSE NEGATIVE (Negative)
--- NOTE | 2024-08-15 11:14 | PC.NURSE ---
Patient is a 79 yo male who presented with lower abdominal pain with assoc urinary frequency, urgency and burning with chills. PMH chronic hypoxic and hypercapnic respiratory failure on 2-3 L home O2 due to COPD, peripheral arterial disease, AAA, GERD, BPH, chronic anemia presented with shortness breath. In ED, chest x-ray with chronic interstitial lung disease suggesting pulmonary fibrosis. Sepsis protocol initiated. Patient alert and oriented. manager inpatient maintained and stach noted. Lungs diminished with diffuse exp wheezes. Respirations even and non-labored at rest. Sl Dyspneic on exertion. Abdomen soft, distended and patient continues to c/o of lower abdominal pain and urinary frequency. Positive pedal pulses with no edema. Family at the bedside.
--- NOTE | 2024-08-15 11:37 | P.HPHOSP_ITS ---
History of Present Illness Date of Service: 08/15/24 Chief Complaint: dysuria 79M PMH chronic hypoxic and hypercapnic respiratory failure on 2-3 L home O2 due to COPD, peripheral arterial disease, AAA, GERD, BPH, chronic anemia presented with dysuria. Patient was recently admitted to [facility] 07/31/2024 to 08/05/2024 for COPD exacerbation. Was feeling well until day of presentation started to have dysuria and urinary frequency as well as suprapubic tenderness and chills. Denies chest pain, shortness of breath. In ED noted to be septic with leukocytosis and fever and tachycardia. Positive UA, cystitis seen on CAT scan. Review of Systems 2 Review of Systems: Yes all other systems are reviewed and are negative [facility] Medical History O2 dependent No natural teeth Mixed simple and mucopurulent chronic bronchitis Bronchiectasis PVD (peripheral vascular disease) with claudication Elevated cholesterol Personal history of COVID-19 BRANDAN (generalized anxiety disorder) Oxygen dependent Urinary retention Abdominal pain Respiratory failure with hypoxia COPD (chronic obstructive pulmonary disease) Mucus plugging of bronchi PAD (peripheral artery disease) AAA (abdominal aortic aneurysm) without rupture Emphysema lung Surgical History Left inguinal hernia (07/09/24) Hx of colonoscopy Hx of hand surgery (~1984) Hernia, ventral (04/19/23) Social History Household Members: Other Household Members Other:: Adult son Housing: House Are you a primary care process manager to a significant other at home: No Do you presently have visiting nurse or other home services: No Alcohol intake: former Patient Tobacco Use Status: Former Tobacco user Tobacco use type: Cigarette Smoked in Last 30 Days: No Second Hand Smoke Exposure: No Advance Directives: Yes Advance Directives Information Provided: No Advance Directives on File: No service: No Meds Allergies Allergy/AdvReac Type Severity Reaction Status Date / Time No Known Allergies Allergy Verified 08/15/24 09:19 Active Medications: Current Medications Acetaminophen (Acetaminophen 325 Mg Tablet) 650 mg PO Q6H PRN PRN Reason: Pain, Mild 1-3,fever,headache Calcium Carbonate (Calcium Carbonate 750 Mg Tab.Chew) 750 mg PO Q4H PRN PRN Reason: Heartburn Ceftriaxone Sodium (Ceftriaxone Sodium 1 Gm Vial) 1 gm IVPUSH Q24H [facility] Enoxaparin Sodium (Enoxaparin Sodium 40 Mg/0.4 Ml Syringe) 40 mg SUBCUT Q24H [facility] Magnesium Hydroxide (Milk Of Magnesia 30 Ml Oral.Susp) 30 ml PO DAILY PRN PRN Reason: Constipation Melatonin (Melatonin 3 Mg Tablet) 6 mg PO BEDTIME PRN PRN Reason: Insomnia Sodium Chloride (0.9 % Sodium Chloride Flush 3 Ml Syringe) 3 ml IVFLUSH QSHIFT [facility] Home Medications ?Medication ?Instructions ?Recorded ?Confirmed ?Last Taken ?Type albuterol sulfate 90 mcg/actuation 2 puff inhalation Q6H PRN 11/08/22 07/31/24 04/19/23 History aerosol inhaler (Ventolin HFA) Shortness Of Breath Or Wheezing aspirin 81 mg tablet,delayed 81 mg PO DAILY 11/08/22 07/31/24 07/31/24 History release clopidogrel 75 mg tablet 75 mg PO DAILY 04/16/23 07/31/24 07/31/24 History fluticasone fur. 200 mcg-umeclid 1 ea inhalation DAILY 03/12/24 07/31/24 07/31/24 History 62.5 mcg-vilant 25 mcg inhalat.powder (Trelegy Ellipta) chlorthalidone 25 mg tablet 25 mg PO DAILY 07/02/24 07/31/24 07/31/24 History aluminum-mag hydroxide-simethicone 20 ml PO BID PRN Acid Reflux 07/31/24 07/31/24 Unknown History 200 mg-200 mg-20 mg/5 mL oral susp (Antacid Liquid) [id number]-[id number] 5 30 ml PO Q4H PRN Cough 07/31/24 07/31/24 Unknown History mg-10 mg-325 mg/15 mL oral liquid (Daytime Cold-Flu) Physical Exam 2 Vital Signs and Narrative: Vital Signs: Last Vital Signs Temp 98.4 F 08/15/24 11:24 Pulse 102 H 08/15/24 11:27 Resp 30 H 08/15/24 11:24 BP 115/56 L 08/15/24 11:24 Pulse Ox 95 08/15/24 11:24 O2 Del Method Nasal Cannula 08/15/24 11:24 O2 Flow Rate 2 08/15/24 11:24 Oxygen Flow Rate 2 08/15/24 09:16 BMI result Body Mass Index 21.5 General: AO X 3, no acute distress, frail and ill-appearing Resp: Diminished, mild wheezing bilateral, no accessory muscles used CVS: S1,S2,RRR GI: soft, suprapubic tender, non distended Neuro: motor grossly intact, alert Psych: appropriate affect, appropriate insight Results Labs 08/15/24 09:29 08/15/24 09:28 Labs: Laboratory Results - last 24 hr 08/15/24 08/15/24 08/15/24 09:28 09:29 09:36 MCV 91.9 MCH 30.4 MCHC 33.1 RDW 13.9 Plt Count 294 MPV 10.0 Immature Gran % (Auto) 0.6 H Neut % (Auto) 87.9 H Lymph % (Auto) 2.9 L [place] % (Auto) 8.3 Eos % (Auto) 0.1 Baso % (Auto) 0.2 Lymph # (Auto) 0.6 L [place] # (Auto) 1.7 H Eos # (Auto) 0.0 Baso # (Auto) 0.0 Abs Immat Gran (auto) 0.12 H Absolute Neuts (auto) 17.8 H Absolute Nucleated RBC 0.000 Nucleated RBC % (auto) 0.0 Smear Tech's Comments VERIFIED VBG pH 7.44 H VBG pCO2 49 VBG pO2 27 VBG HCO3 34 H VBG O2 Saturation 36.0 VBG Base Excess 8.6 Anion Gap 14 Estim Creat Clear Calc 69.8 Estimated GFR > 60 Random Glucose 107 Lactic Acid 1.2 Calcium 9.0 Total Bilirubin 0.7 AST 15 ALT 15 Alkaline Phosphatase 65 Total Protein 7.5 Albumin 4.0 Urine Color Yellow Urine Appearance Clear Urine pH 6.5 Ur Specific [place] 1.015 Urine Protein 30 (1+) H Urine Glucose (UA) Negative Urine Ketones Negative Urine Blood Large (3+) H Urine Nitrite Negative Ur Leukocyte Esterase Moderate (2+) H Urine RBC >20 H Urine WBC >50 H Ur Squamous Epith Cells 0-2 Urine Bacteria 4+ Hyaline Casts 0-2 Influenza Type A (PCR) Influenza Type B (PCR) RSV RNA Qual (PCR) SARS-CoV-2 RNA (RT-PCR) 05/24/25 09:39 MCV MCH MCHC RDW Plt Count MPV Immature Gran % (Auto) Neut % (Auto) Lymph % (Auto) [place] % (Auto) Eos % (Auto) Baso % (Auto) Lymph # (Auto) [place] # (Auto) Eos # (Auto) Baso # (Auto) Abs Immat Gran (auto) Absolute Neuts (auto) Absolute Nucleated RBC Nucleated RBC % (auto) Smear Tech's Comments VBG pH VBG pCO2 VBG pO2 VBG HCO3 VBG O2 Saturation VBG Base Excess Anion Gap Estim Creat Clear Calc Estimated GFR Random Glucose Lactic Acid Calcium Total Bilirubin AST ALT Alkaline Phosphatase Total Protein Albumin Urine Color Urine Appearance Urine pH Ur Specific [place] Urine Protein Urine Glucose (UA) Urine Ketones Urine Blood Urine Nitrite Ur Leukocyte Esterase Urine RBC Urine WBC Ur Squamous Epith Cells Urine Bacteria Hyaline Casts Influenza Type A (PCR) NEGATIVE Influenza Type B (PCR) NEGATIVE RSV RNA Qual (PCR) NEGATIVE SARS-CoV-2 RNA (RT-PCR) NEGATIVE Assessment and Plan (1) Urinary tract infection: Status: Acute Plan 79M PMH chronic hypoxic and hypercapnic respiratory failure on 2-3 L home O2 due to COPD, peripheral arterial disease, AAA, GERD, BPH, chronic anemia presented with dysuria Sepsis due to urinary tract infection Ceftriaxone, follow up cultures Chronic hypoxic and hypercapnic respiratory failure due to COPD Continue 2-3 L home O2 Trelegy Nebs as needed Peripheral vascular disease Continue antiplatelet BPH Continue Flomax DVT prophylaxis with Lovenox Full Code Given sepsis expected to require at least 2 midnights inpatient Quality Stroke Does the patient have a stroke diagnosis?: No VTE Prior VTE?: No VTE Risk Level:: Medical - moderate - high VTE Device Contraindication: Treatment Not Indicated VTE Drug Contraindication: N/A - Med Ordered
[2024-08-15] MEDS: Potassium Chloride ER 20 MEQ TAB.ER.PRT 40 MEQ PO (12:31)
--- NOTE | 2024-08-15 12:34 | PHA.MEDREC ---
Pharmacy Consult ? Medication Reconciliation Pharmacy has completed the medication reconciliation.Med rec complete, spoke with Kyle patient's son. Compared with pharmacy claim history.
[2024-08-15] MEDS: Acetaminophen 325 MG TABLET 650 MG PO (17:26)
[2024-08-15] MEDS: 0.9 % Sodium Chloride Flush 3 ML SYRINGE IVFLUSH (20:05)
--- NOTE | 2024-08-15 21:11 | PM.EVENT ---
Event Note Date of Service: 08/15/24 Event Note: Blood culture with Gram-negative rods. Will increase ceftriaxone to 2 g daily Time Spent With Patient Time: Total time managing care of this patient today ____ minutes.
[2024-08-16] VITALS (7 sets, daily range): BP systolic 99–129; BP diastolic 53–63; PULSE 80–111; RESP 18–20; TEMP 37–38.3; O2SAT 93–95
[2024-08-16] MEDS: Acetaminophen 325 MG TABLET 650 MG PO ×2 (03:49→15:12)
[2024-08-16 06:04] LABS: Hematocrit 29.8 % (42.0-52.0); Hemoglobin 9.9 g/dl (14.0-18.0); Mean Corpuscular HGB Conc 33.2 g/dl (31.0-36.0); Mean Corpuscular Hemoglobin 30.5 pg (27.0-33.0); Mean Corpuscular Volume 91.7 fL (80.0-98.0); Mean Platelet Volume 10.2 fL (9.4-12.4); Platelet Count 207 X10*3/uL (160-400); Red Blood Count 3.25 X10*6/uL (4.60-5.80); Red Cell Distribution Width 14.1 % (11.0-16.0); White Blood Count 15.9 X10*3/uL (4.8-10.8)
[2024-08-16 06:16] LABS: Anion Gap 11 (12-20); Blood Urea Nitrogen 21 mg/dL (9-16); Calcium 8.3 mg/dL (8.4-10.2); Carbon Dioxide 30 mmol/L (22-29); Chloride 101 mmol/L (96-108); Creatinine Clr Calc Pharmacy 60.7; Estimated Glomerular Filt Rate > 60; Glucose Random 122 mg/dL (60-115); Magnesium 1.7 mg/dL (1.6-2.6); Sodium 139 mmol/L (135-145)
[2024-08-16] MEDS: Fluticasone/Umeclidinium/Vilanterol 200/62.5/25 BLST.W.DEV 1 PUFF INHALE (08:02)
--- NOTE | 2024-08-16 08:07 | P.PNIM_ITS ---
Subjective Subjective Date of Service: 08/16/24 Interval History: a bit better Physical Exam 2 Vital Signs: Vital Signs: Last Vital Signs Temp 98.6 F 08/16/24 07:33 Pulse 86 08/16/24 08:03 Resp 18 08/16/24 08:03 BP 108/60 08/16/24 07:33 Pulse Ox 95 08/16/24 07:33 O2 Del Method Nasal Cannula 08/16/24 07:33 O2 Flow Rate 2 08/16/24 07:33 Oxygen Flow Rate 2 08/15/24 09:16 BMI result Body Mass Index 21.5 General: AO X 3, n o acute distress, frail and ill-appe aring Resp: Dimin ished, mild wheezi ng bilateral, no a ccessory muscles u sed CVS: S1,S2,RRR GI: soft, suprapu bic tender, non di stended Neuro: mo tor grossly intact , alert Psych: dominga ropriate affect, a ppropriate insight Objective Data Active Medications Acetaminophen (Acetaminophen 325 Mg Tablet) 650 mg PO Q6H PRN PRN Reason: Pain, Mild 1-3,fever,headache Last Admin: 08/16/24 03:49 Dose: 650 mg Documented By: RAFAL Albuterol/Ipratropium (Albuterol/Iprat 2.5/0.5mg 3 Ml Ampul.Neb) 3 ml INHALE RQ4H WHILE AWAKE PRN PRN Reason: sob Aspirin (Aspirin Enteric Coated 81 Mg Tablet.Dr) 81 mg PO DAILY [facility] Calcium Carbonate (Calcium Carbonate 750 Mg Tab.Chew) 750 mg PO Q4H PRN PRN Reason: Heartburn Ceftriaxone Sodium (Ceftriaxone Sodium 2 Gm Vial) 2 gm IVPUSH Q24H [facility] Clopidogrel Bisulfate (Clopidogrel Bisulfate 75 Mg Tablet) 75 mg PO DAILY [facility] Enoxaparin Sodium (Enoxaparin Sodium 40 Mg/0.4 Ml Syringe) 40 mg SUBCUT Q24H [facility] Fluticasone/Umeclidinium/Vilanterol (Fluticasone/Umeclidinium/Vilanterol 200/62.5/25 Blst.W.Dev) 1 puff INHALE RDAILY [facility] Last Admin: 08/16/24 08:02 Dose: 1 puff Documented By: JESSICA Magnesium Hydroxide (Milk Of Magnesia 30 Ml Oral.Susp) 30 ml PO DAILY PRN PRN Reason: Constipation Melatonin (Melatonin 3 Mg Tablet) 6 mg PO BEDTIME PRN PRN Reason: Insomnia Sodium Chloride (0.9 % Sodium Chloride Flush 3 Ml Syringe) 3 ml IVFLUSH QSHIFT [facility] Last Admin: 08/15/24 20:05 Dose: 3 ml Documented By: RAFAL Labs 08/16/24 05:23 08/16/24 05:23 Labs: Laboratory Results - last 24 hr 08/15/24 08/15/24 08/15/24 09:28 09:29 09:36 MCV 91.9 MCH 30.4 MCHC 33.1 RDW 13.9 Plt Count 294 MPV 10.0 Immature Gran % (Auto) 0.6 H Neut % (Auto) 87.9 H Lymph % (Auto) 2.[address] [place] % (Auto) 8.3 Eos % (Auto) 0.1 Baso % (Auto) 0.2 Lymph # (Auto) 0.[address] [place] # (Auto) 1.7 H Eos # (Auto) 0.0 Baso # (Auto) 0.0 Abs Immat Gran (auto) 0.12 H Absolute Neuts (auto) 17.8 H Absolute Nucleated RBC 0.000 Nucleated RBC % (auto) 0.0 Smear Tech's Comments VERIFIED VBG pH 7.44 H VBG pCO2 49 VBG pO2 27 VBG HCO3 34 H VBG O2 Saturation 36.0 VBG Base Excess 8.6 Anion Gap 14 Estim Creat Clear Calc 69.8 Estimated GFR > 60 Random Glucose 107 Lactic Acid 1.2 Calcium 9.0 Magnesium Total Bilirubin 0.7 AST 15 ALT 15 Alkaline Phosphatase 65 Total Protein 7.5 Albumin 4.0 Urine Color Yellow Urine Appearance Clear Urine pH 6.5 Ur Specific [place] 1.015 Urine Protein 30 (1+) H Urine Glucose (UA) Negative Urine Ketones Negative Urine Blood Large (3+) H Urine Nitrite Negative Ur Leukocyte Esterase Moderate (2+) H Urine RBC >20 H Urine WBC >50 H Ur Squamous Epith Cells 0-2 Urine Bacteria 4+ Hyaline Casts 0-2 Influenza Type A (PCR) Influenza Type B (PCR) RSV RNA Qual (PCR) SARS-CoV-2 RNA (RT-PCR) 08/15/24 08/16/24 09:39 05:23 MCV 91.7 MCH 30.5 MCHC 33.2 RDW 14.1 Plt Count 207 D MPV 10.2 Immature Gran % (Auto) Neut % (Auto) Lymph % (Auto) [place] % (Auto) Eos % (Auto) Baso % (Auto) Lymph # (Auto) [place] # (Auto) Eos # (Auto) Baso # (Auto) Abs Immat Gran (auto) Absolute Neuts (auto) Absolute Nucleated RBC 0.000 Nucleated RBC % (auto) 0.0 Smear Tech's Comments VBG pH VBG pCO2 VBG pO2 VBG HCO3 VBG O2 Saturation VBG Base Excess Anion Gap 11 L Estim Creat Clear Calc 60.7 Estimated GFR > 60 Random Glucose 122 H Lactic Acid Calcium 8.3 L D Magnesium 1.7 Total Bilirubin AST ALT Alkaline Phosphatase Total Protein Albumin Urine Color Urine Appearance Urine pH Ur Specific [place] Urine Protein Urine Glucose (UA) Urine Ketones Urine Blood Urine Nitrite Ur Leukocyte Esterase Urine RBC Urine WBC Ur Squamous Epith Cells Urine Bacteria Hyaline Casts Influenza Type A (PCR) NEGATIVE Influenza Type B (PCR) NEGATIVE RSV RNA Qual (PCR) NEGATIVE SARS-CoV-2 RNA (RT-PCR) NEGATIVE Microbiology Microbiology Results: Microbiology 08/15/24 09:38 Blood Culture - Preliminary Blood - Venous Prelim: GNR Gram Stain only 08/15/24 09:28 Blood Culture - Preliminary Blood - Venous Prelim: GNR Gram Stain only Assessment and Plan (1) Urinary tract infection: Status: Acute Plan 79M PMH chronic hypoxic and hypercapnic respiratory failure on 2-3 L home O2 due to COPD, peripheral arterial disease, AAA, GERD, BPH, chronic anemia presented with dysuria Sepsis due to urinary tract infection complicated by GNR bacteremia Ceftriaxone, follow up cultures Chronic hypoxic and hypercapnic respiratory failure due to COPD Continue 2-3 L home O2 Trelegy Nebs as needed Peripheral vascular disease Continue antiplatelet BPH Continue Flomax DVT prophylaxis with Lovenox Full Code reason for continued hospitalization:sepsis Quality Stroke Does the patient have a stroke diagnosis?: No VTE Prior VTE?: No VTE Risk Level:: Medical - moderate - high VTE Device Contraindication: Treatment Not Indicated VTE Drug Contraindication: N/A - Med Ordered
[2024-08-16] MEDS: 0.9 % Sodium Chloride Flush 3 ML SYRINGE IVFLUSH ×3 (09:05→19:36)
[2024-08-16] MEDS: cefTRIAXone sodium 2 GM VIAL IVPUSH (09:05)
[2024-08-16] MEDS: Clopidogrel Bisulfate 75 MG TABLET PO (09:05)
[2024-08-16] MEDS: Aspirin Enteric Coated 81 MG TABLET.DR PO (09:05)
--- NOTE | 2024-08-16 10:20 | MHC.CM.PN ---
PT REPORTS HE LIVES WITH HIS SON WHO ASSISTS HIM WITH CARE PRN PT HAS HOME O2 AND NO OTHER DME, HE DOES NOT KNOW SUPPLIER HE SAYS HE HAS A HCP NAMING HIS SON HIS AGENT, COPY REQUESTED PCP: SAADIA MALONE IMM DELIVERED DCP: HOME WITH RESUMPTION OF FAMILY SUPPORT SON TO TRANSPORT
[2024-08-16] MEDS: Enoxaparin Sodium 40 MG/0.4 ML SYRINGE SUBCUT (12:18)
[2024-08-16] MEDS: ondansetron HCL 4 MG/2 ML VIAL IVPUSH (14:58)
[2024-08-16] MEDS: Albuterol/Iprat 2.5/0.5MG 3 ML AMPUL.NEB INHALE (23:39)
[2024-08-17 00:39] VITALS: RESP 16
--- NOTE | 2024-08-17 01:54 | PC.NURSE ---
Addendum entered by Nicolle Dockery RN 08/17/24 06:59: Handoff report given to oncoming RN. Original Note: Measurer assumed care of this patient at 22:15. Patient offers no acute complaints. Denies pain. Continues on 2L nc per baseline/home nc. Breathing remains even and unlabored without distress. Prn updraft given by RT. +UTI on ceftriaxone. Denies pelvic pressure or discomfort. Bed alarm on and safety measures in place. Call sommer within reach and educated on use. Plan of care continues.
[2024-08-17 03:31] VITALS: BP 108/58; PULSE 109; RESP 18; TEMP 37.4; O2SAT 93
[2024-08-17 06:59] LABS: Anion Gap 14 (12-20); Blood Urea Nitrogen 24 mg/dL (9-16); Calcium 8.3 mg/dL (8.4-10.2); Carbon Dioxide 30 mmol/L (22-29); Chloride 97 mmol/L (96-108); Creatinine Clr Calc Pharmacy 49.9; Estimated Glomerular Filt Rate > 60; Glucose Random 109 mg/dL (60-115); Potassium 3.1 mmol/L (3.3-5.1); Sodium 138 mmol/L (135-145)
[2024-08-17 07:06] LABS: Hematocrit 30.7 % (42.0-52.0); Mean Corpuscular HGB Conc 32.6 g/dl (31.0-36.0); Mean Corpuscular Hemoglobin 30.4 pg (27.0-33.0); Mean Corpuscular Volume 93.3 fL (80.0-98.0); Mean Platelet Volume 10.1 fL (9.4-12.4); Platelet Count 184 X10*3/uL (160-400); Red Blood Count 3.29 X10*6/uL (4.60-5.80); Red Cell Distribution Width 13.8 % (11.0-16.0); White Blood Count 6.8 X10*3/uL (4.8-10.8)
[2024-08-17 07:07] VITALS: BP 107/58; PULSE 103; RESP 20; TEMP 37.8; O2SAT 94
[2024-08-17] MEDS: Fluticasone/Umeclidinium/Vilanterol 200/62.5/25 BLST.W.DEV 1 PUFF INHALE (07:48)
[2024-08-17 07:49] VITALS: PULSE 97; RESP 20; O2SAT 97
[2024-08-17] MEDS: Aspirin Enteric Coated 81 MG TABLET.DR PO (08:04)
[2024-08-17] MEDS: Potassium Chloride ER 20 MEQ TAB.ER.PRT 40 MEQ PO (08:04)
[2024-08-17] MEDS: cefTRIAXone sodium 2 GM VIAL IVPUSH (08:04)
[2024-08-17] MEDS: Clopidogrel Bisulfate 75 MG TABLET PO (08:04)
[2024-08-17] MEDS: 0.9 % Sodium Chloride Flush 3 ML SYRINGE IVFLUSH ×3 (08:05→20:24)
--- NOTE | 2024-08-17 08:56 | HO.PM.IMPN ---
Subjective Subjective Date of Service: 08/17/24 Interval History: abd pain Physical Exam Vital Signs: Vital Signs: Last Vital Signs Temp 100.1 F 08/17/24 07:07 Pulse 97 08/17/24 07:49 Resp 20 08/17/24 07:49 BP 107/58 L 08/17/24 07:07 Pulse Ox 94 08/17/24 07:07 O2 Del Method Nasal Cannula 08/17/24 07:07 O2 Flow Rate 2 08/17/24 07:07 Oxygen Flow Rate 2 08/15/24 09:16 BMI result Body Mass Index 21.5 General: AO X 3, n o acute distress, frail and ill-appe aring Resp: Dimin ished, mild wheezi ng bilateral, no a ccessory muscles u sed CVS: S1,S2,RRR GI: soft, suprapu bic tender, non di stended Neuro: mo tor grossly intact , alert Psych: dominga ropriate affect, a ppropriate insight Objective Data Active Medications Acetaminophen (Acetaminophen 325 Mg Tablet) 650 mg PO Q6H PRN PRN Reason: Pain, Mild 1-3,fever,headache Last Admin: 08/16/24 15:12 Dose: 650 mg Documented By: STEFFEN Albuterol/Ipratropium (Albuterol/Iprat 2.5/0.5mg 3 Ml Ampul.Neb) 3 ml INHALE RQ4H WHILE AWAKE PRN PRN Reason: sob Last Admin: 08/16/24 23:39 Dose: 3 ml Documented By: STEPHENIE Aspirin (Aspirin Enteric Coated 81 Mg Tablet.) 81 mg PO DAILY [facility] Last Admin: 08/17/24 08:04 Dose: 81 mg Documented By: ADRIANA Calcium Carbonate (Calcium Carbonate 750 Mg Tab.Chew) 750 mg PO Q4H PRN PRN Reason: Heartburn Ceftriaxone Sodium (Ceftriaxone Sodium 2 Gm Vial) 2 gm IVPUSH Q24H [facility] Last Admin: 08/17/24 08:04 Dose: 2 gm Documented By: ADRIANA Clopidogrel Bisulfate (Clopidogrel Bisulfate 75 Mg Tablet) 75 mg PO DAILY [facility] Last Admin: 08/17/24 08:04 Dose: 75 mg Documented By: ADRIANA Enoxaparin Sodium (Enoxaparin Sodium 40 Mg/0.4 Ml Syringe) 40 mg SUBCUT Q24H [facility] Last Admin: 08/16/24 12:18 Dose: 40 mg Documented By: STEFFEN Fluticasone/Umeclidinium/Vilanterol (Fluticasone/Umeclidinium/Vilanterol 200/62.5/ Blst.W.Dev) 1 puff INHALE RDAILY [facility] Last Admin: 08/17/24 07:48 Dose: 1 puff Documented By: AISLINN Magnesium Hydroxide (Milk Of Magnesia 30 Ml Oral.Susp) 30 ml PO DAILY PRN PRN Reason: Constipation Melatonin (Melatonin 3 Mg Tablet) 6 mg PO BEDTIME PRN PRN Reason: Insomnia Ondansetron HCl (Ondansetron Hcl 4 Mg/2 Ml Vial) 4 mg IVPUSH Q6H PRN PRN Reason: Nausea Last Admin: 08/16/24 14:58 Dose: 4 mg Documented By: STEFFEN Sodium Chloride (0.9 % Sodium Chloride Flush 3 Ml Syringe) 3 ml IVFLUSH QSHIFT [facility] Last Admin: 08/17/24 08:05 Dose: 3 ml Documented By: ADRIANA Labs 08/17/24 06:30 08/17/24 06:30 Labs: Laboratory Results - last 24 hr 08/17/24 06:30 MCV 93.3 MCH 30.4 MCHC 32.6 RDW 13.8 Plt Count 184 MPV 10.1 Absolute Nucleated RBC 0.000 Nucleated RBC % (auto) 0.0 Anion Gap 14 Estim Creat Clear Calc 49.9 Estimated GFR > 60 Random Glucose 109 Calcium 8.3 L Microbiology Microbiology Results: Microbiology 08/15/24 09:38 Blood Culture - Final Blood - Venous Klebsiella pneumoniae 08/15/24 09:28 Blood Culture - Final Blood - Venous Klebsiella pneumoniae 08/15/24 Unknown Urine Culture - Final Urine clean catch - Clean Catch Midstream Klebsiella pneumoniae Assessment and Plan (1) Urinary tract infection: Status: Acute Plan 79M PMH chronic hypoxic and hypercapnic respiratory failure on 2-3 L home O2 due to COPD, peripheral arterial disease, AAA, GERD, BPH, chronic anemia presented with dysuria Sepsis due to urinary tract infection complicated by GNR bacteremia Ceftriaxone, follow up cultures Chronic hypoxic and hypercapnic respiratory failure due to COPD Continue 2-3 L home O2 Trelegy Nebs as needed Peripheral vascular disease Continue antiplatelet BPH Continue Flomax DVT prophylaxis with Lovenox Full Code reason for continued hospitalization:sepsis Quality Stroke Does the patient have a stroke diagnosis?: No VTE Prior VTE?: No VTE Risk Level:: Medical - moderate - high VTE Device Contraindication: Treatment Not Indicated VTE Drug Contraindication: N/A - Med Ordered
[2024-08-17] MEDS: Enoxaparin Sodium 40 MG/0.4 ML SYRINGE SUBCUT (13:16)
[2024-08-17 15:18] VITALS: BP 115/59; PULSE 105; RESP 17; TEMP 38; O2SAT 92
[2024-08-17 19:14] VITALS: BP 106/59; PULSE 111; RESP 17; TEMP 37.5; O2SAT 93
[2024-08-17] MEDS: Milk of Magnesia 30 ML ORAL.SUSP PO (20:27)
--- NOTE | 2024-08-17 23:20 | PC.NURSE ---
Assumed care of this patient at 19:00. Handoff report given to oncoming RN at 23:00. Please see shift assessment, tasks in worklist, and MAR for full details.
[2024-08-18 03:54] VITALS: BP 132/59; PULSE 95; RESP 18; TEMP 37.5; O2SAT 91
[2024-08-18 06:27] LABS: Hematocrit 30.6 % (42.0-52.0); Mean Corpuscular HGB Conc 32.7 g/dl (31.0-36.0); Mean Corpuscular Hemoglobin 30.4 pg (27.0-33.0); Mean Platelet Volume 10.3 fL (9.4-12.4); Platelet Count 170 X10*3/uL (160-400); Red Blood Count 3.29 X10*6/uL (4.60-5.80); Red Cell Distribution Width 13.8 % (11.0-16.0); White Blood Count 4.6 X10*3/uL (4.8-10.8)
[2024-08-18 06:28] LABS: Anion Gap 13 (12-20); Blood Urea Nitrogen 25 mg/dL (9-16); Calcium 8.4 mg/dL (8.4-10.2); Carbon Dioxide 32 mmol/L (22-29); Chloride 96 mmol/L (96-108); Creatinine Clr Calc Pharmacy 62.8; Estimated Glomerular Filt Rate > 60; Glucose Random 102 mg/dL (60-115); Potassium 3.6 mmol/L (3.3-5.1); Sodium 137 mmol/L (135-145)
[2024-08-18] MEDS: Fluticasone/Umeclidinium/Vilanterol 200/62.5/25 BLST.W.DEV 1 PUFF INHALE (07:47)
[2024-08-18 07:48] VITALS: PULSE 80; RESP 18; O2SAT 97
[2024-08-18 07:53] VITALS: BP 100/57; PULSE 91; RESP 18; TEMP 37.3; O2SAT 95
[2024-08-18] MEDS: Aspirin Enteric Coated 81 MG TABLET.DR PO (08:21)
[2024-08-18] MEDS: 0.9 % Sodium Chloride Flush 3 ML SYRINGE IVFLUSH ×2 (08:21→16:15)
[2024-08-18] MEDS: Clopidogrel Bisulfate 75 MG TABLET PO (08:21)
[2024-08-18] MEDS: Meropenem 1 GM VIAL IVPUSH ×3 (08:21→23:23)
--- NOTE | 2024-08-18 09:43 | P.PNIM_ITS ---
Subjective Subjective Date of Service: 08/18/24 Interval History: still feels unwell Physical Exam 2 Vital Signs: Vital Signs: Last Vital Signs Temp 99.1 F 08/18/24 07:53 Pulse 91 08/18/24 07:53 Resp 18 08/18/24 07:53 BP 100/57 L 08/18/24 07:53 Pulse Ox 95 08/18/24 07:53 O2 Del Method Nasal Cannula 08/18/24 07:53 O2 Flow Rate 2.0 08/18/24 07:53 Oxygen Flow Rate 2 08/15/24 09:16 BMI result Body Mass Index 21.5 General: AO X 3, n o acute distress, frail and ill-appe aring Resp: Dimin ished, mild wheezi ng bilateral, no a ccessory muscles u sed CVS: S1,S2,RRR GI: soft, suprapu bic tender, non di stended Neuro: mo tor grossly intact , alert Psych: dominga ropriate affect, a ppropriate insight Objective Data Active Medications Acetaminophen (Acetaminophen 325 Mg Tablet) 650 mg PO Q6H PRN PRN Reason: Pain, Mild 1-3,fever,headache Last Admin: 08/16/24 15:12 Dose: 650 mg Documented By: STEFFEN Albuterol/Ipratropium (Albuterol/Iprat 2.5/0.5mg 3 Ml Ampul.Neb) 3 ml INHALE RQ4H WHILE AWAKE PRN PRN Reason: sob Last Admin: 08/16/24 23:39 Dose: 3 ml Documented By: STEPHENIE Aspirin (Aspirin Enteric Coated 81 Mg Tablet.Dr) 81 mg PO DAILY [facility] Last Admin: 08/18/24 08:21 Dose: 81 mg Documented By: ADRIANA Calcium Carbonate (Calcium Carbonate 750 Mg Tab.Chew) 750 mg PO Q4H PRN PRN Reason: Heartburn Clopidogrel Bisulfate (Clopidogrel Bisulfate 75 Mg Tablet) 75 mg PO DAILY [facility] Last Admin: 08/18/24 08:21 Dose: 75 mg Documented By: ADRIANA Enoxaparin Sodium (Enoxaparin Sodium 40 Mg/0.4 Ml Syringe) 40 mg SUBCUT Q24H [facility] Last Admin: 08/17/24 13:16 Dose: 40 mg Documented By: ADRIANA Fluticasone/Umeclidinium/Vilanterol (Fluticasone/Umeclidinium/Vilanterol 200/62.5/25 Blst.W.Dev) 1 puff INHALE RDAILY [facility] Last Admin: 08/18/24 07:47 Dose: 1 puff Documented By: AISLINN Magnesium Hydroxide (Milk Of Magnesia 30 Ml Oral.Susp) 30 ml PO DAILY PRN PRN Reason: Constipation Last Admin: 08/17/24 20:27 Dose: 30 ml Documented By: SUNG Melatonin (Melatonin 3 Mg Tablet) 6 mg PO BEDTIME PRN PRN Reason: Insomnia Meropenem (Meropenem 1 Gm Vial) 1 gm IVPUSH Q8H [facility] Last Admin: 08/18/24 08:21 Dose: 1 gm Documented By: ADRIANA Ondansetron HCl (Ondansetron Hcl 4 Mg/2 Ml Vial) 4 mg IVPUSH Q6H PRN PRN Reason: Nausea Last Admin: 08/16/24 14:58 Dose: 4 mg Documented By: STEFFEN Sodium Chloride (0.9 % Sodium Chloride Flush 3 Ml Syringe) 3 ml IVFLUSH QSHIFT [facility] Last Admin: 08/18/24 08:21 Dose: 3 ml Documented By: ADRIANA Labs 08/18/24 05:50 08/18/24 05:50 Labs: Laboratory Results - last 24 hr 08/18/24 05:50 MCV 93.0 MCH 30.4 MCHC 32.7 RDW 13.8 Plt Count 170 MPV 10.3 Absolute Nucleated RBC 0.000 Nucleated RBC % (auto) 0.0 Anion Gap 13 Estim Creat Clear Calc 62.8 Estimated GFR > 60 Random Glucose 102 Calcium 8.4 Microbiology Microbiology Results: Microbiology 08/15/24 09:38 Blood Culture - Final Blood - Venous Klebsiella pneumoniae 08/15/24 09:28 Blood Culture - Final Blood - Venous Klebsiella pneumoniae 08/15/24 Unknown Urine Culture - Final Urine clean catch - Clean Catch Midstream Klebsiella pneumoniae Assessment and Plan (1) Urinary tract infection: Status: Acute Plan 79M PMH chronic hypoxic and hypercapnic respiratory failure on 2-3 L home O2 due to COPD, peripheral arterial disease, AAA, GERD, BPH, chronic anemia presented with dysuria Sepsis due to urinary tract infection complicated by ESBL klebsiella bacteremia cultures came back as esbl klebsiella, changed ceftriaxone to meropenem on 08/18/24, likely 14 days (end 08/31/24) will order midline Chronic hypoxic and hypercapnic respiratory failure due to COPD Continue 2-3 L home O2 Trelegy Nebs as needed Peripheral vascular disease Continue antiplatelet BPH Continue Flomax DVT prophylaxis with Lovenox Full Code reason for continued hospitalization:weakness Quality Stroke Does the patient have a stroke diagnosis?: No VTE Prior VTE?: No VTE Risk Level:: Medical - moderate - high VTE Device Contraindication: Treatment Not Indicated VTE Drug Contraindication: N/A - Med Ordered
[2024-08-18 10:43] VITALS: BP 100/57; PULSE 91; O2SAT 95
[2024-08-18] MEDS: Enoxaparin Sodium 40 MG/0.4 ML SYRINGE SUBCUT (12:23)
--- NOTE | 2024-08-18 12:54 | MHC.CM.PN ---
P.T. HAS RECOMMENDED PULMONARY REHAB. PT/SON AGREEABLE AND REFERRALS PLACED. PT'S FIRST CHOICE [facility] NO BED TO OFFER, PT/SON AGREEABLE TO [facility] WHO HAS OFFERED A BED AND WILL START AUTH PROCESS FOR PROJECTED DC ON 08/19.
--- NOTE | 2024-08-18 13:34 | HO.MIDLINE ---
Midline Insertion MIDLINE INSERTION Diagnosis: UTI Indication: 2wks ABT Pertinent Labs: Reviewed Technique: Using sterile technique including cap and mask, glove and drape, the right arm was prepped and draped in the usual sterile fashion of full barrier technique with CHG. Using ultrasound guidance, right brachial vein access was obtained . 4FR x 20cm nonPASV single lumen catheter trimmed to 16cm was positioned. The procedure was performed in 272. Ultrasound was used to document vein patency and for needle entry. A formal ultrasound picture was recorded. [employer] has released the line for use and it is currently dressed with a StatLock, Tegaderm, and CHG disc. Verification has been performed for blood return and line patency. Arm Circumference: 27cm Equipment: BARD single lumen nonPASV POWER midline catheter Catheter Type: 4fr x 20cm single lumen non PASV Lot #: [id number]
[2024-08-18 15:51] VITALS: BP 110/69; PULSE 105; RESP 12; TEMP 37; O2SAT 93
[2024-08-18 19:13] VITALS: BP 125/62; PULSE 93; RESP 18; TEMP 36.8; O2SAT 94
[2024-08-18] MEDS: Throat Lozenge, Medicated LOZENGE 1 LOZENGE MUCOUS MEM (23:22)
[2024-08-19 03:20] VITALS: BP 120/60; PULSE 82; RESP 18; TEMP 36.1; O2SAT 97
[2024-08-19 07:24] LABS: Hematocrit 31.6 % (42.0-52.0); Hemoglobin 10.4 g/dl (14.0-18.0); Mean Corpuscular HGB Conc 32.9 g/dl (31.0-36.0); Mean Corpuscular Hemoglobin 30.5 pg (27.0-33.0); Mean Corpuscular Volume 92.7 fL (80.0-98.0); Mean Platelet Volume 10.1 fL (9.4-12.4); Platelet Count 176 X10*3/uL (160-400); Red Blood Count 3.41 X10*6/uL (4.60-5.80); Red Cell Distribution Width 13.6 % (11.0-16.0); White Blood Count 4.6 X10*3/uL (4.8-10.8)
[2024-08-19 07:26] VITALS: BP 118/62; PULSE 87; RESP 16; TEMP 36.7; O2SAT 97
[2024-08-19 07:39] LABS: Anion Gap 11 (12-20); Blood Urea Nitrogen 21 mg/dL (9-16); Calcium 8.6 mg/dL (8.4-10.2); Carbon Dioxide 34 mmol/L (22-29); Chloride 96 mmol/L (96-108); Estimated Glomerular Filt Rate > 60; Glucose Random 101 mg/dL (60-115); Sodium 137 mmol/L (135-145)
[2024-08-19] MEDS: Fluticasone/Umeclidinium/Vilanterol 200/62.5/25 BLST.W.DEV 1 PUFF INHALE (07:45)
[2024-08-19 07:46] VITALS: PULSE 83; RESP 16; O2SAT 96
[2024-08-19] MEDS: Clopidogrel Bisulfate 75 MG TABLET PO (08:27)
[2024-08-19] MEDS: Aspirin Enteric Coated 81 MG TABLET.DR PO (08:27)
[2024-08-19] MEDS: Meropenem 1 GM VIAL IVPUSH ×2 (08:28→16:07)
[2024-08-19] MEDS: 0.9 % Sodium Chloride Flush 3 ML SYRINGE IVFLUSH ×2 (08:31→16:42)
--- NOTE | 2024-08-19 09:24 | P.PNIM_ITS ---
Subjective Subjective Date of Service: 08/19/24 Interval History: no new issues, feels well Physical Exam 2 Vital Signs: Vital Signs: Last Vital Signs Temp 98.0 F 08/19/24 07:26 Pulse 83 08/19/24 07:46 Resp 16 08/19/24 07:46 BP 118/62 08/19/24 07:26 Pulse Ox 97 08/19/24 07:26 O2 Del Method Nasal Cannula 08/19/24 07:26 O2 Flow Rate 2 08/19/24 07:26 Oxygen Flow Rate 2 08/15/24 09:16 BMI result Body Mass Index 21.5 General: AO X 3, no acute distress, frail and ill-appearing Resp: Diminished, mild wheezing bilateral, no accessory muscles used CVS: S1,S2,RRR GI: soft, suprapubic tender, non distended Neuro: motor grossly intact, alert Psych: appropriate affect, appropriate insight Objective Data Active Medications Acetaminophen (Acetaminophen 325 Mg Tablet) 650 mg PO Q6H PRN PRN Reason: Pain, Mild 1-3,fever,headache Last Admin: 08/16/24 15:12 Dose: 650 mg Documented By: STEFFEN Albuterol/Ipratropium (Albuterol/Iprat 2.5/0.5mg 3 Ml Ampul.Neb) 3 ml INHALE RQ4H WHILE AWAKE PRN PRN Reason: sob Last Admin: 08/16/24 23:39 Dose: 3 ml Documented By: STEPHENIE Aspirin (Aspirin Enteric Coated 81 Mg Tablet.Dr) 81 mg PO DAILY [facility] Last Admin: 08/19/24 08:27 Dose: 81 mg Documented By: MEGGAN Benzocaine (Throat Lozenge, Medicated Lozenge) 1 lozenge MUCOUS MEM Q2H PRN PRN Reason: Sore Throat Last Admin: 08/18/24 23:22 Dose: 1 lozenge Documented By: RONALD Calcium Carbonate (Calcium Carbonate 750 Mg Tab.Chew) 750 mg PO Q4H PRN PRN Reason: Heartburn Clopidogrel Bisulfate (Clopidogrel Bisulfate 75 Mg Tablet) 75 mg PO DAILY [facility] Last Admin: 08/19/24 08:27 Dose: 75 mg Documented By: MEGGAN Enoxaparin Sodium (Enoxaparin Sodium 40 Mg/0.4 Ml Syringe) 40 mg SUBCUT Q24H [facility] Last Admin: 08/18/24 12:23 Dose: 40 mg Documented By: KLARISSA Fluticasone/Umeclidinium/Vilanterol (Fluticasone/Umeclidinium/Vilanterol 200/62.08/16 Blst.W.Dev) 1 puff INHALE RDAILY [facility] Last Admin: 08/19/24 07:45 Dose: 1 puff Documented By: AISLINN Magnesium Hydroxide (Milk Of Magnesia 30 Ml Oral.Susp) 30 ml PO DAILY PRN PRN Reason: Constipation Last Admin: 08/17/24 20:27 Dose: 30 ml Documented By: SUNG Melatonin (Melatonin 3 Mg Tablet) 6 mg PO BEDTIME PRN PRN Reason: Insomnia Meropenem (Meropenem 1 Gm Vial) 1 gm IVPUSH Q8H [facility] Last Admin: 08/19/24 08:28 Dose: 1 gm Documented By: MEGGAN Ondansetron HCl (Ondansetron Hcl 4 Mg/2 Ml Vial) 4 mg IVPUSH Q6H PRN PRN Reason: Nausea Last Admin: 08/16/24 14:58 Dose: 4 mg Documented By: STEFFEN Sodium Chloride (0.9 % Sodium Chloride Flush 3 Ml Syringe) 3 ml IVFLUSH QSHIFT [facility] Last Admin: 08/19/24 08:31 Dose: 3 ml Documented By: MEGGAN Labs 08/19/24 07:14 08/19/24 07:14 Labs: Laboratory Results - last 24 hr 08/19/24 07:14 MCV 92.7 MCH 30.5 MCHC 32.9 RDW 13.6 Plt Count 176 MPV 10.1 Absolute Nucleated RBC 0.000 Nucleated RBC % (auto) 0.0 Anion Gap 11 L Estim Creat Clear Calc 69.0 Estimated GFR > 60 Random Glucose 101 Calcium 8.6 Assessment and Plan (1) Urinary tract infection: Status: Acute Plan 79M PMH chronic hypoxic and hypercapnic respiratory failure on 2-3 L home O2 due to COPD, peripheral arterial disease, AAA, GERD, BPH, chronic anemia presented with dysuria Sepsis due to urinary tract infection complicated by ESBL klebsiella bacteremia cultures came back as esbl klebsiella, changed ceftriaxone to meropenem on 08/18/24, likely 14 days (end 08/31/24) midline 08/18 Chronic hypoxic and hypercapnic respiratory failure due to COPD Continue 2-3 L home O2 Trelegy Nebs as needed Peripheral vascular disease Continue antiplatelet BPH Continue Flomax DVT prophylaxis with Lovenox Full Code reason for continued hospitalization:weakness dispo: dc if bed available. Quality Stroke Does the patient have a stroke diagnosis?: No VTE Prior VTE?: No VTE Risk Level:: Medical - moderate - high VTE Device Contraindication: Treatment Not Indicated VTE Drug Contraindication: N/A - Med Ordered
[2024-08-19] MEDS: Enoxaparin Sodium 40 MG/0.4 ML SYRINGE SUBCUT (13:00)
--- NOTE | 2024-08-19 14:44 | MHC.CM.PN ---
IMM 08/19/24 Patient is discharged to [facility] for [facility]. Insurance authorization has been received from [facility]. Patient will transport via BLS. 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
--- NOTE | 2024-08-19 15:48 | PM.DS ---
DS: Providers Provider Date of Service: 08/19/24 Date of admission: 08/15/24 11:32 Date of discharge: 08/19/24 Primary care physician: Go Zamora MD DS: Diagnosis Discharge Diagnosis (1) Urinary tract infection: Status: Acute DS: Summary Hospital Course Hospital Course: Admission HPI Chief Complaint: dysuria 79M PMH chronic hypoxic and hypercapnic respiratory failure on 2-3 L home O2 due to COPD, peripheral arterial disease, AAA, GERD, BPH, chronic anemia presented with dysuria. Patient was recently admitted to [facility] 07/31/2024 to 08/05/2024 for COPD exacerbation. Was feeling well until day of presentation started to have dysuria and urinary frequency as well as suprapubic tenderness and chills. Denies chest pain, shortness of breath. In ED noted to be septic with leukocytosis and fever and tachycardia. Positive UA, cystitis seen on CAT scan. hspital course: 79-year-old male with a past medical history of chronic hypoxic and hypercapnic respiratory failure on 2?3 L home oxygen secondary to COPD, peripheral arterial disease, abdominal aortic aneurysm (AAA), GERD, BPH, and chronic anemia, presented with dysuria and was diagnosed with sepsis secondary to a urinary tract infection. Blood cultures grew ESBL-producing Klebsiella bacteremia.The patient was initially started on Ceftriaxone; however, upon identification of ESBL Klebsiella on 08/18/24, antibiotics were escalated to Meropenem. The patient is currently clinically stable and no longer septic. He has a midline catheter in place and will complete a total 14-day course of antibiotics. Upon discharge, he will be transitioned to Ertapenem 1 gram IV daily to complete the treatment course, with the final dose scheduled for 08/31/24. Chronic hypoxic and hypercapnic respiratory failure due to COPD Continue 2-3 L home O2 Trelegy Nebs as needed Peripheral vascular disease Continue antiplatelet BPH Continue Flomax Time Attestation Discharge Coordination Time (in mins): 40 Quality: Safe Use of Opioids Does Pt have an Active Cancer Diagnosis on the Problem List?: No Quality: Stroke Does the patient have a stroke diagnosis?: No Physical Exam Vital Signs: Vital Signs: Last Vital Signs Temp 98.0 F 08/19/24 07:26 Pulse 83 08/19/24 07:46 Resp 16 08/19/24 07:46 BP 118/62 08/19/24 07:26 Pulse Ox 97 08/19/24 07:26 O2 Del Method Nasal Cannula 08/19/24 07:26 O2 Flow Rate 2 08/19/24 07:26 Oxygen Flow Rate 2 08/15/24 09:16 BMI result Body Mass Index 21.5 General: AO X 3, no acute distress, frail and ill-appearing Resp: Diminished, mild wheezing bilateral, no accessory muscles used CVS: S1,S2,RRR GI: soft, suprapubic tender, non distended Neuro: motor grossly intact, alert Psych: appropriate affect, appropriate insight DS: Data Data Completed and Pending Labs on day of discharge: Laboratory Results - last 24 hr 08/19/24 07:14 WBC 4.6 L RBC 3.41 L Hgb 10.4 L Hct 31.6 L MCV 92.7 MCH 30.5 MCHC 32.9 RDW 13.6 Plt Count 176 MPV 10.1 Absolute Nucleated RBC 0.000 Nucleated RBC % (auto) 0.0 Sodium 137 Potassium 4.0 Chloride 96 Carbon Dioxide 34 H Anion Gap 11 L BUN 21 H Creatinine 0.81 Estim Creat Clear Calc 69.0 Estimated GFR > 60 Random Glucose 101 Calcium 8.6 Discharge Plan Discharge Anticipated Discharge Date/Time: 08/19/24 15:47 Patient Disposition: Xfer [facility] Discharge Diagnosis: Sepsis due to Klebsiella Pneumoniae UTI and bacteremia Referrals: [facility] [Outside] - 1 Week Go Zamora MD [Primary Care Provider] - 1 Week Discharge Medications: New ertapenem 1 gram recon soln 1 g IV DAILY Qty: 12 0RF Rx Instructions: next dose 08/20/24 Continued ipratropium-albuterol 0.5 mg-3 mg(2.5 mg base)/3 mL solution for nebulization 3 ml inhalation QID PRN (Reason: for wheezing) Qty: 180 2RF albuterol sulfate [Ventolin HFA] 90 mcg/actuation HFA aerosol inhaler 2 puff inhalation Q6H PRN (Reason: Shortness Of Breath Or Wheezing) aspirin 81 mg Tablet,Delayed Release (Dr/Ec) 81 mg PO DAILY (DME) nebulizers Misc See Rx Instructions .Route Qty: 1 0RF Rx Instructions: As directed Trelegy Ellipta 200-62.5-25 mcg blister with device 1 ea inhalation DAILY chlorthalidone 25 mg tablet 25 mg PO DAILY alum-mag hydroxide-simeth [Antacid Liquid] 200-200-20 mg/5 mL Suspension 20 ml PO BID PRN (Reason: Acid Reflux) Rx Instructions: administer between meals and at bedtime Daytime Cold-Flu 5-10-325 mg/15 mL Liquid 30 ml PO Q4H PRN (Reason: Cough) clopidogrel 75 mg tablet 75 mg PO DAILY Discharge Orders: Discharge Order (Routine); Ordered 08/19/24 Ordered By: Aubrey Laureano Diet: Advance to usual diet Activity on Discharge: As tolerated Stand Alone Forms: Patient Portal Discharge page Print Language: Sami Care Plan Goals: recovery from sepsis, uti and bacteremia Health Concerns: sepsis, uti and bacteremia Plan of Treatment: take Erapaenem 1 gram iv via midline daily for 12 more days, ending 08/31/24 pcp follow up in a week Assessment: see above
[2024-08-19 16:00] VITALS: BP 114/63; PULSE 97; RESP 18; TEMP 36.9; O2SAT 96
[2024-08-19 18:08] VITALS: BP 119/64; PULSE 97; RESP 18; TEMP 36.8; O2SAT 95
== END 2024-08-19 18:24 | disposition skilled nursing facility (03) | DRG 872 ==
LOC: HO.ED 11:37 → HO.EDOVER 11:44 → HO.S3 13:13
PROVIDERS: Physician Assistant Medical; Admitting Provider Internal Medicine; Emergency Provider Emergency Medicine; PCP Internal Medicine; Visit Provider Internal Medicine
DX: A41.9 Sepsis, unspecified organism (principal); J96.11 Chronic respiratory failure with hypoxia; Z16.12 Extended spectrum beta lactamase (ESBL) resistance; J96.12 Chronic respiratory failure with hypercapnia; N39.0 Urinary tract infection, site not specified; J47.9 Bronchiectasis, uncomplicated; B96.1 Klebsiella pneumoniae [K. pneumoniae] as the cause of diseases classified elsewhere; I73.9 Peripheral vascular disease, unspecified; N40.0 Benign prostatic hyperplasia without lower urinary tract symptoms; Z99.81 Dependence on supplemental oxygen; Z20.822 Contact with and (suspected) exposure to COVID-19; Z87.891 Personal history of nicotine dependence; Z79.02 Long term (current) use of antithrombotics/antiplatelets; Z79.82 Long term (current) use of aspirin; Z79.899 Other long term (current) drug therapy
CPT/HCPCS: 0241U; 36410; 36415; 71045; 74177; 80048; 80053; 81001; 82803; 83605; 83735; 85025; 85027; 87040; 87077; 87086; 87088; 87186; 87205; 93005; 94640; 97162; 99285; C1751; J0131; J0696; J1650; J2185; J2405; J7120; Q9967

== ENCOUNTER → 2024-08-15 09:40 | Outpatient (BNV) | payer MEDICARE, SELFPAY | PROVIDERS: PCP Internal Medicine; Visit Provider Radiology Diagnostic Radiology | DX: I71.43 Infrarenal abdominal aortic aneurysm, without rupture (principal); N28.1 Cyst of kidney, acquired; K76.89 Other specified diseases of liver; K80.20 Calculus of gallbladder without cholecystitis without obstruction; J43.9 Emphysema, unspecified; Z48.815 Encounter for surgical aftercare following surgery on the digestive system | CPT/HCPCS: 71045; 74177 ==

== ENCOUNTER → 2024-08-15 09:55 | Outpatient (BNV) | payer MEDICARE, SELFPAY | PROVIDERS: Emergency Provider Emergency Medicine; PCP Internal Medicine; Visit Provider Internal Medicine | DX: N39.0 Urinary tract infection, site not specified (principal) | CPT/HCPCS: 99223; 99232; 99233; 99239; 99499 ==

== ENCOUNTER → 2024-08-15 09:58 | Outpatient (BNV) | payer MEDICARE, SELFPAY | PROVIDERS: Admitting Provider Internal Medicine; Emergency Provider Emergency Medicine; PCP Internal Medicine; Visit Provider Internal Medicine Cardiovascular Disease | DX: R00.0 Tachycardia, unspecified (principal) | CPT/HCPCS: 93010 ==

== ENCOUNTER 2024-09-14 10:43 | Outpatient (AMB) | payer MEDICARE, MEDICAID, SELFPAY ==
[2024-09-14 10:51] VITALS: BP 150/68; PULSE 68; O2SAT 94; BMI 22.1
--- NOTE | 2024-09-14 10:51 | A.OFFVIS_ITS ---
Vital Signs 09/14/24 10:51 Height 5 ft 9 in Weight 149 lb 14.629 oz BMI 22.1 BP 150/68 H Blood Pressure Location Lt brachial Position Sitting Pulse 68 Pulse Source Pulse Oximeter Pulse Oximetry (%) 94 Oxygen Delivery Method Nasal Cannula Oxygen Flow Rate 2 Intake Visit Reasons: COPD Intake Note: pt is here for follow up and spent 2 weeks in rehab post copd [facility] hospital stay, today he states he is feeling okay, and when in rehab he was using poc and would like to be tested for this, DME is [employer] Required: No Allergies No Known Allergies Allergy (Verified 09/14/24 10:57) HPI HPI COPD: Details: HOSPITALDISCH. SUMMARY 79-year-old male with a past medical history of chronic hypoxic and hypercapnic respiratory failure on 2?3 L home oxygen secondary to COPD, peripheral arterial disease, abdominal aortic aneurysm (AAA), GERD, BPH, and chronic anemia, presented with dysuria and was diagnosed with sepsis secondary to a urinary tract infection. Blood cultures grew ESBL-producing Klebsiella bacteremia.The patient was initially started on Ceftriaxone; however, upon identification of ESBL Klebsiella on 08/18/24, antibiotics were escalated to Meropenem. The patient is currently clinically stable and no longer septic. He has a midline catheter in place and will complete a total 14-day course of antibiotics. Upon discharge, he will be transitioned to Ertapenem 1 gram IV daily to complete the treatment course, with the final dose scheduled for 08/31/24. THIS 79 YEARS OLD GENTLEMAN SPENT ABOUT 2 WEEKS IN THE REHAB FACILITY, WHERE HE GOT MUCH BETTER BY DOING DAILY WALKING AND EXERCISES. HE SAY IS HE WAS ABLE TO USE POC WHILE IN THE REHAB PLACE AND WOULD LIKE. TO BE TESTED FOR THAT AGAIN RESPIRATORY KNOTT HE STAYING STABLE WITH HIS USUAL MEDICAL REGIMEN. [facility] Medical History (Updated 09/14/24 @ 11:27 by Valerie Geronimo MD) COPD (chronic obstructive pulmonary disease) O2 dependent No natural teeth Mixed simple and mucopurulent chronic bronchitis Bronchiectasis PVD (peripheral vascular disease) with claudication Elevated cholesterol Personal history of COVID-19 BRANDAN (generalized anxiety disorder) Oxygen dependent Urinary retention Abdominal pain Respiratory failure with hypoxia Mucus plugging of bronchi PAD (peripheral artery disease) AAA (abdominal aortic aneurysm) without rupture Emphysema lung Surgical History Left inguinal hernia (07/09/24) Hx of colonoscopy Hx of hand surgery (~1984) Hernia, ventral (04/19/23) Social History Household Members: Family and Children Household Members Other:: Adult son Housing: House Are you a primary healthcare economics manager to a significant other at home: No Do you presently have visiting nurse or other home services: No Alcohol intake: former Patient Tobacco Use Status: Former Tobacco user Tobacco use type: Cigarette Second Hand Smoke Exposure: No service: No Review of Systems Const All systems reviewed & are unremarkable except as noted in HPI and below Eyes Reports no additional complaints ENT Reports no additional complaints Card Denies chest pain, Denies irregular heart rhythm, Denies leg edema and Reports dyspnea on exertion Resp Reports as per HPI and Reports dyspnea on exertion GI Reports constipation and Reports dyspepsia Reports no additional complaints Musc Reports other (GENERAL WEAKNESS) Skin/Breast Reports system reviewed and no additional complaints, except as documented Neuro Reports no additional complaints Psych Reports no additional complaints Physical Exam Vital Signs: Last Vital Signs Pulse 68 09/14/24 10:51 BP 150/68 H 09/14/24 10:51 Pulse Ox 94 09/14/24 10:51 Oxygen Delivery Method Nasal Cannula 09/14/24 10:51 Oxygen Flow Rate 2 09/14/24 10:51 BMI result Body Mass Index 22.1 Last Vital Signs Temp 97.8 F 01/30/23 08:38 Pulse 109 H 01/30/23 08:38 Resp 24 H 01/30/23 08:38 BP 131/68 01/30/23 08:38 Pulse Ox 94 01/30/23 08:38 O2 Del Method Nasal Cannula 01/30/23 08:38 O2 Flow Rate 3 01/30/23 08:38 BMI result Body Mass Index 23.9 Const General: comfortable (Except for shortness of breath during conversation), no acute distress, alert and awake Orientation/consciousness: patient oriented x3 HEENT Head: Yes normal to inspection General nose exam: No nasal polyps present and No nasal discharge present Face and sinus: Yes sinuses nontender Mouth: oropharynx normal (I DID NOT SEE ANY EXUDATES OR ANY EXCESSIVE MUCUS . ) Teeth and gingiva: edentulous Throat: Yes posterior oropharynx normal Eyes General: appearance normal, both eyes and all related structures Neck Neck: Yes normal visual inspection, Yes no lymphadenopathy, Yes trachea midline and Yes no JVD Thyroid: Thyroid normal Chest Chest palpation & inspection: normal inspection of the chest, normal palpation of entire chest wall and no tenderness Resp Other: PERCUSSION NOTE IS RESONANT, BREATH SOUNDS ARE VERY DISTANT, BUT EQUAL ON BOTH SIDES. NO WHEEZES OR CREPS TODAY . Cardio Palpation: normal PMI Rate: regular rate Rhythm: regular rhythm Heart sounds: no gallops and no murmurs GI Palpation (GI): Soft to palpation, nontender, No hepatosplenomegaly present, no masses and Other GI palpation findings present (HAS SOME DISCOMFORT IN THE LEFT INGUINAL AREA WITH A SMALL BULGE ON COUGHIN) Auscultation: normal bowel sounds Back/Spine/Pelvis Thoracic/Lumbar Spine: thoracic and lumbar spine normal to inspection and thoraco-lumbar ROM limited Skin General skin exam: no rashes or lesions noted Neuro General: patient oriented x3 and no focal motor deficits Cranial nerves: Yes CN's II-XII intact bilaterally Extrem General: Yes normal to inspection, Yes no clubbing, cyanosis or edema and Yes no calf tenderness Psych Other: POOR GENERAL HYGIENE Appearance: disheveled Mental Status: mental status grossly normal Speech and movement: Normal speech and movement present Office Procedures 6 Minute Walk Time:: 11:15 SPO2 % at rest: 92 Pulse at rest: 98 SPO2 % during excercise: 85 Pulse during excercise: 122 SPO2 % after excercise: 91 Pulse after excercise: 109 Distance in yards walked: 150 Fawad Score: 5 Performance Observations:: Richardson walked on level ground without assistance. He walked on room air for 60 yds before his SPO2 decreased to 87%, O2 started at setting 2 and increased to setting 3 when his SPO2 continued to drop to 85%. He was unable to maintain his SPO2 above 88% on setting 3 and 4 pulsed O2. His SPO2 recovered to 91% on pulsed o2 setting 5. MD funez. [id number] - 6 Minute Walk Results Reviewed Results Reviewed: 6 MINUTES WALK Assessment & Plan Assessment & Plan (1) COPD (chronic obstructive pulmonary disease): Comment: PATIENT HAS ADVANCED CHRONIC OBSTRUCTIVE PULMONARY DISEASE. HE IS PRONE TO HAVE RECURRENT RESPIRATORY INFECTIONS, CAUSING ACUTE EXACERBATIONS. HOWEVER AT PRESENT HIS COPD STATUS IS STABLE . HIS ACTIVITY LEVEL IS LOW BUT HE DOES WALK AROUND IN THE HOUSE. STATUS POST LEFT INGUINAL HERNIORRHAPHY, AND HIS RESPIRATORY STATUS HAS REMAINED STABLE, POSTOPERATIVELY. HAD A RECENT ADMISSION TO THE [facility] WHICH WAS FOR UROSEPSIS, AFTER TREATMENT HERE IN THE HOSPITAL HE WAS SENT TO REHAB FACILITY TO COMPLETE IV ANTIBIOTIC COURSE. NOW HE IS BACK AT HOME. Code(s): J44.9 - Chronic obstructive pulmonary disease, unspecified Category: Medical Plan: ADVISED TO CONTINUE HIS REGULAR PULMONARY REGIMEN, ; TRELEGY ELLIPTA 1 INHALATION DAILY. IPRATROPIUM-ALBUTEROL SOLUTION IN THE NEBULIZER Q I.D. P.R.N. ALBUTEROL HFA 2 PUFFS Q 4-6 HOURS P.R.N. WHEN OUTDOORS. (2) Mucus plugging of bronchi: Comment: PER CT SCAN ON 01/29/23, HE WAS FOUND TO HAVE MUCUS PLUGGING OF THE BRONCHI IN THE LOWER LOBES ESPECIALLY IN RIGHT LOWER LOBE. HE IS A HIGH RISK FOR BRONCHOSCOPY. He is successfully expectorating mucus after using the DuoNeb updrafts. At present he denies any difficulty in expectorating. Code(s): T17.500A - Unspecified foreign body in bronchus causing asphyxiation, initial encounter Category: Medical Plan: CONTINUE THE SAME REGIMEN (3) Respiratory failure with hypoxia: Comment: PATIENT HAS HYPOXEMIA, BEING TREATED WITH OXYGEN SUPPLEMENTATION, 2 L/MINUTE. HE SAY IS WHILE IN THE REHAB FACILITY HE WAS USING POC. HE REQUEST TO BE RE-EVALUATED IF HE CAN USE POC FOR OUTDOORS. Code(s): J96.91 - Respiratory failure, unspecified with hypoxia Category: Medical Plan: 6 MINUTES WALK IS DONE AND HE DOES NOT QUALIFY FOR THE OXYGEN CONSERVING UNIT, EVEN WITH 4 L/MINUTE HIS O2 SAT COULD NOT GO BEYOND 88-89%. EXPLAINED TO HIM AND HIS SON, HE IS BETTER OF USING THE REGULAR PORTABLE CYLINDER , WHEN HE GOES OUTDOORS (4) Bronchiectasis: Comment: IN ADDITION TO ADVANCED COPD HE DOES HAVE CHRONIC BRONCHIAL WALL THICKENING, AND BRONCHIECTASIS IN THE LOWER LOBES. Code(s): J47.9 - Bronchiectasis, uncomplicated Category: Medical Plan: TREATMENT UNDER COPD/ AND MUCUS PLUGGING. Orders: Orders AMB 6 minute walk Today J44.9 - Chronic obstructive pulmonary disease, unspecified Coding Level of Care Code Est Pt Level 4 (21385) Diagnoses COPD (chronic obstructive pulmonary disease) J44.9 Mucus plugging of bronchi T17.500A Respiratory failure with hypoxia J96.91 Bronchiectasis J47.9 CPT Codes Coding ([id number])
[2024-09-14 11:31] VITALS: PULSE 98; O2SAT 92
--- OUTSIDE RECORDS SUMMARY | 2024-09-14 12:01 | XMS_ITS | Clinical Summary ---
Author Organization [address] Address [address] [place] [phone] Phone Care Team Providers Care Spine Surgeon Name Role Phone Go Zamora MD Primary Care Provider [phone] Allergies No known active allergies Medications amLODIPine (NORVASC) 5 mg tablet 2 Active ammonium lactate (AMLACTIN) 12 % cream 3 Active aspirin 81 mg EC tablet [...] Active omeprazole (PriLOSEC) [address] capsule 4 Active Oxygen Therapy (O2) gas Inhale into the lungs. Active phenylephrine-g uaifenesin 2.5-100 mg/5 mL liquid Take 1 Dose by mouth every 6 hours as needed. Active pravastatin (PRAVACHOL) 80 mg tablet Take 1 tablet by mouth daily. 1 Active sertraline (ZOLOFT) 50 mg tablet 2 Active tiotropium (SPIRIVA) 18 mcg per inhalation capsule Inhale 1 Cap into the lungs daily. Inhale the contents of one capsule through the Spiriva device every AM Inhale the contents of 1 capsule via HandiHaler daily 9 Active tiZANidine (ZANAFLEX) 4 mg tablet 3 Active albuterol HFA (Ventolin HFA) 90 mcg/actuation inhaler INHALE 2 PUFFS INTO THE LUNGS 4 TIMES DAILY NEEDED FOR COUGH, WHEEZING OR SHORTNESS OF BREATH. 3 Active famotidine (PEPCID) 20 mg tablet TAKE 1 TABLET BY MOUTH TWICE A DAY 180 tablet 1 5 Active chlorthalidone (HYGROTON) 25 mg tablet Take 1 tablet (25 mg total) by mouth 1 (one) time each day. 30 each 5 5 11/11/19 25 Active clopidogreL (PLAVIX) 75 mg tablet Take 1 tablet (75 mg total) by mouth 1 (one) time each day. 90 each 1 5 12/10/19 25 Active senna (SENOKOT) 8.6 mg tablet Take 1 tablet (8.6 mg total) by mouth 1 (one) time each day. 5 Active Hospital, Clinic, or Other Facility Administered [...] 07/18/2017 Hyperkeratosis 03/04/2013 PAD (peripheral artery disease) ([facility] V24) COPD (chronic obstructive pu lmonary disease) ([facility] V24, [facility] V28) 03/16/2009 Encounters Date Type Department Care Team Description 09/10/2024 10:30 AM EDT Office Visit Internal Medicine - [address] [phone] Go Zamora MD Mixed simple and mucopurulent chronic bronchitis ([facility] V24, [facility] V28) (Primary Dx); Lower abdominal pain; Cystitis 09/09/2024 Telephone Internal Medicine - [address] [phone] Go Zamora MD vna 09/08/2024 Telephone Internal Medicine [address] [phone] Go Zamora MD vna 09/02/2024 Telephone Internal Medicine [address] [phone] Go Zamora MD VNA 08/28/2024 Telephone Internal Medicine - [address] [phone] Go Zamora MD Hospital Follow-up ([facility] ) 08/06/2024 Telephone [facility] [phone] Go Zamora MD Hospital Follow-up from Last 3 Months Immunizations Name Administration [...] Comments COPD (chronic obstructive pu lmonary disease) ([facility] V24, [facility] V28) 03/16/2009 DX:COPD (chronic o bstructive pulmonary disease) ([facility]) Hyperkeratosis 03/04/2013 DX:Hyperkeratosi s PVD (peripheral vascular dis ease) with claudication ([facility] V24) 03/04/2013 DX:PVD (peripheral vascular disease) with claudication ([facility]) Family History Medical History Relation Name Comments [...] Sign Reading Time Taken Comments Blood Pressure 160/90 09/10/2024 10:30 AM EDT Pulse 88 09/10/2024 10:30 AM EDT Temperature - - Respiratory Rate - - Oxygen Saturation 93% 05/14/2024 1:33 PM EST Inhaled Oxygen Concentration - - Weight 77.1 kg (169 lb 14.4 oz) 025 10:30 AM EDT Height 175.3 cm (5' 9 ) 09/10/2024 10:3 0 AM EDT Body Mass Index 25.09 09/10/2024 10:30 AM EDT Plan of Treatment Health Maintenance [...] 07/08/2024 07/09/2023 Hypertension/CHF/CAD Annual BMP Blood Test 08/31/2025 08/31/2024, 08/24/2024, 08/20/2024, Additional history exists Cholesterol Screening (Lipid Panel) 05/09/2028 05/09/2023 Pneumococcal [...] Procedure Name Priority Date/Time Associated Diagnosis Comments EXTERNAL CT REPORT 08/15/2024 BASIC METABOLIC PANEL Routine 05/08/2024 11:46 AM EST Pre-operative clearance DEPRESSION SCREENING Routine 07/09/2023 FALLS RISK ASSESSMENT Routine 07/09/2023 LIPID PANEL Routine 05/09/2023 from Last 3 Months or Most Recently Relevant to Health Maintenance Results * External CT Report (08/15/2024) Anatomical Region Laterality Modality Computed Tomogra phy Provider [facility] PROCEDURES Final Result * Falls Risk Assessment (07/09/2023) Pathologist [facility] Falls Risk Assessment abstracted Historical Provider HEALTH MAINTENANCE Final Result * Depression Screening (07/09/2023) Pathologist [facility] Depression Screening abstracted [facility] Provider HEALTH MAINTENANCE Final Result * (ABNORMAL) Lipid panel (05/09/2023) LDL/HDL Ratio 4 0 - 4 Triglycerides 112 0 - 150 mg/dL Cholesterol 213(A) 0 - 200 mg/dL HDL 53 >=40 mg/dL LDL Cholesterol 138(A) 0 - 100 mg/dL Blood Venous blood specimen / Unknown Historical Provider LAB BLOOD ORDERABLES Magdalena l Result from Last 3 Months or Most Recently Relevant to Health Maintenance [place] [employer] MED[employer] [employer]AGE Advance Directives Documents on File Type Date Recorded Patient Wrinkle Chaser Expl anation Health Care Decision (hx) 07/18/2015 AD MIDDLETON DIRECTIVE Health Care Decision (hx) 07/18/2015 AD MIDDLETON DIRECTIVE Health Care Decision (hx) 07/17/2015 AD MIDDLETON DIRECTIVE Health Care Decision (hx) 07/17/2015 AD MIDDLETON DIRECTIVE Care Teams Spine Surgeon Relationship Specialty Start Date End Date Go Zamora MD [address] [place] [id number] PCP - General Internal Medicine 05/06/24
== END 2024-09-14 11:25 | disposition home or self-care (01) ==
LOC: HO.HPS 10:43
PROVIDERS: PCP Internal Medicine; Visit Provider Internal Medicine
DX: J44.9 Chronic obstructive pulmonary disease, unspecified (principal); T17.500A Unspecified foreign body in bronchus causing asphyxiation, initial encounter; J96.91 Respiratory failure, unspecified with hypoxia; J47.9 Bronchiectasis, uncomplicated
CPT/HCPCS: 94618; 99214

== ENCOUNTER → 2024-09-14 10:43 | Outpatient (BNVA) | payer MEDICARE, MEDICAID, SELFPAY | PROVIDERS: PCP Internal Medicine; Visit Provider Internal Medicine | DX: J44.9 Chronic obstructive pulmonary disease, unspecified (principal); T17.500A Unspecified foreign body in bronchus causing asphyxiation, initial encounter; J96.91 Respiratory failure, unspecified with hypoxia; J47.9 Bronchiectasis, uncomplicated; Z99.81 Dependence on supplemental oxygen | CPT/HCPCS: 94618; 99212 ==

== ENCOUNTER 2024-12-10 11:39 | Inpatient (IN) | payer MEDICARE, SELFPAY ==
[2024-12-10] VITALS (8 sets, daily range): BP systolic 114–144; BP diastolic 61–80; PULSE 86–108; RESP 21–29; TEMP 36.8–37.3; O2SAT 86–97; BMI 20.7
--- NOTE | 2024-12-10 | ECG_ITS ---
Test Reason : SOB Blood Pressure : */* mmHG Vent. Rate : 93 BPM Atrial Rate : 93 BPM P-R Int : 172 ms QRS Dur : 82 ms QT Int : 338 ms P-R-T Axes : 52 -5 -1 degrees QTcB Int : 420 ms Normal sinus rhythm Nonspecific ST and T wave abnormality Abnormal ECG When compared with ECG of 15-Aug-2024 10:13, Nonspecific T wave abnormality now evident in Inferior leads Nonspecific T wave abnormality now evident in Anterior leads Referred By: Nahomi Aguilar Electronically Signed By: EBONY LOFTON
--- NOTE | ~2024-12-10 | XR_ITS ---
EXAMINATION: XR CHEST 1 VIEW HISTORY: cough COMPARISON: Comparison is made with the prior examination dated 08/15/2024. FINDINGS: A single AP portable view of the chest performed at 12:46 PM is submitted. The lungs remain hyperinflated consistent with COPD. There is a new spiculated density in the left upper lobe. There is scarring at the lung bases. There is no pleural effusion, pneumothorax, or pulmonary vascular congestion. The heart is normal in size. The patient is status post mid thoracic kyphoplasty. XR/XR chest 1V IMPRESSION: New spiculated density in the left upper lobe suspicious for neoplasm. Further evaluation with chest CT is recommended. Electronically signed by: Christiano Reina MD 12/10/2024 12:55 PM EDT
--- NOTE | ~2024-12-10 | CT_ITS ---
EXAMINATION: CT CHEST WITH CONTRAST CLINICAL INFORMATION: Abnormal chest x-ray. Dyspnea and shortness of breath. COMPARISON: Chest radiograph earlier same day. CT of the chest 01/29/2023. TECHNIQUE: Multidetector volumetric CT imaging of the chest was obtained after the administration of 50 mL of Omnipaque 350 intravenous contrast without immediate adverse reactions. Axial MIP volume rendering provided. Sagittal and coronal reformatted images were obtained. This CT examination was performed using dose optimization techniques as appropriate, variously including the following: *Automated exposure control *Adjustment of mA and/or kV according to patient size (this includes techniques or standardized protocols for targeted exams where dose is matched to indication/reason for exam; i.e. extremities or head) *Use of iterative reconstruction technique FINDINGS: LUNGS: Diffuse severe centrilobular emphysema present with severe apical bullous changes bilaterally. There is new irregular parenchymal opacity throughout the medial left upper lobe suggestive of superimposed pneumonia. Due to underlying lung disease is has a somewhat stellate appearance. There is diffuse small airway thickening throughout both lungs, with foci of endobronchial mucous plugging in both lower lobes. Increased reticular opacities noted in both lower globes, similar to the prior exam and presumably chronic scarring . There is no effusion or pneumothorax. MEDIASTINUM: Normal thyroid. No abnormal lymphadenopathy in the mediastinum, or bilateral leobardo. There is a mildly prominent subcarinal lymph node measuring up to 1.1 cm short axis. This is presumably reactive. The heart size is mildly enlarged. There is no pericardial effusion. The aorta is normal in caliber with mild to moderate calcific atheromatous disease. Great vessels branch normally. Main pulmonary artery is slightly prominent however not pathologically enlarged. There is no pulmonary embolus. Central airways are patent. No discrete esophageal abnormality. AXILLA/CHEST WALL: No mass or abnormal lymph nodes. UPPER ABDOMEN: There are numerous cysts in the liver, unchanged. There are gallstones in the gallbladder. No gallbladder inflammation. There is mild to moderate parenchymal atrophy of the pancreas. Adrenal glands appear normal. Imaged bowel structures and spleen appear normal. There is a left renal cyst, partially imaged. OSSEOUS STRUCTURES: There is no suspicious lytic or blastic bone lesion. T8 chronic compression fracture with vertebroplasty. Severe degenerative changes of the imaged cervical spine. CT/CT chest w IV con IMPRESSION: 1. Severe centrilobular emphysema with bilateral upper lobe bullous changes. Superimposed reticulonodular opacities throughout the medial left upper lobe is consistent with superimposed pneumonia. 2. Diffuse small airway thickening with endobronchial mucous plugging in both lower lobes. 3. Stable reticular parenchymal scarring in both lower lobes. 4. Ancillary findings as discussed. Electronically signed by: Andrew Gates MD 12/10/2024 03:11 PM EDT
--- NOTE | ~2024-12-10 | US_ITS ---
CLINICAL HISTORY: pulm emboli new Venous duplex ultrasound bilateral lower extremity Comparison: None provided Findings: The visualized deep veins are fully compressible with normal Doppler color flow and spectral tracings. Imaged superficial soft tissues are unremarkable IMPRESSION: Negative for bilateral lower extremity deep vein thrombosis. This document has been electronically signed by: Arnoldo Hernandez MD on 12/10/2024 20:41:23
--- NOTE | ~2024-12-10 | XR_ITS ---
CLINICAL HISTORY: sob 1 view chest x-ray Comparison: 12/10/2024 Findings: Masslike consolidation measures 7 cm x 8 cm laterally in the left upper lobe. Differential considerations include lung neoplasm, pneumonia, and combination of the etiologies with postobstructive pneumonia. Upper spiculation redemonstrated concerning for lung neoplasm. Majority of the consolidation is lateral and inferior to this index lesion noted on comparison from 1 day prior. Differential considerations include postprocedural fluid and pulmonary contusion and/or blood products. Emphysematous changes are redemonstrated. Small right pleural effusion suggested. No pneumothorax in this portable study. Mediastinum is partly obscured. Vertebral augmentation opacities redemonstrated. IMPRESSION: 8 cm masslike consolidation in the left upper lobe. Differential considerations include pneumonia, fluid from procedure, and hematoma superimposed on additional lesion such as lung neoplasm. This document has been electronically signed by: Arnoldo Hernandez MD on 12/11/2024 19:59:14
--- NOTE | ~2024-12-10 | CT_ITS ---
EXAMINATION: CT ABDOMEN AND PELVIS WITH CONTRAST CLINICAL INFORMATION: Lower abdominal pain. Fever. COMPARISON: August 15, 2024 TECHNIQUE: Multidetector volumetric images were obtained from the superior aspect of the liver through the pubic symphysis following administration 85 mL of Omnipaque 350 intravenous contrast. Sagittal and coronal reformatted images were obtained on the technologist's workstation. Oral contrast: No This CT examination was performed using dose optimization techniques as appropriate, variously including the following: *Automated exposure control *Adjustment of mA and/or kV according to patient size (this includes techniques or standardized protocols for targeted exams where dose is matched to indication/reason for exam; i.e. extremities or head) *Use of iterative reconstruction technique DLP: 779 mGy centimeter. FINDINGS: LUNG BASES: Centrilobular emphysematous changes with patchy pulmonary groundglass lung bases. Numerous intraluminal filling defects in the distal right main pulmonary artery to its subsegmental pulmonary branches right lower lung lobe and right middle lung lobe Probable similar abnormality in the left lower lung lobe.. LIVER, GALLBLADDER, AND BILIARY TREE: Liver measures 15 cm. There are multifocal, lobulated and round well-defined mostly fluid density lesions throughout the liver parenchyma, the largest measures 4.5 cm. Main portal veins and hepatic veins are patent. Multiple layering less than 1.1 cm, polygonal shaped calcifications, gallbladder lumen. No pericholecystic fluid collection or gallbladder wall thickening. Gallbladder is nondistended. No intrahepatic or extrahepatic biliary ductal dilatation. PANCREAS: No focal lesion. No peripancreatic fluid collection. Decreased pancreatic volume. No main pancreatic ductal dilatation. SPLEEN: 10 cm. ADRENAL GLANDS: No nodular lesion. KIDNEYS AND URETERS: No hydronephrosis. No gross nephrolithiasis. Multifocal exophytic, cortical medullary junction and parapelvic cystic lesions. Normal enhancement pattern of the renal cortex. BLADDER: Fluid-filled. No distention. Questionable wall thickening. GASTROINTESTINAL TRACT: Stool within the nondilated large intestine. Appendix is normal. Gas and fluid-filled nondistended small bowel loops. No intestinal wall thickening. No ascites. No pneumoperitoneum. No pneumatosis intestinalis. ABDOMINAL WALL: Postsurgical changes in the left inguinal canal. Diastases abdominal rectus muscles in the periumbilical region without gross hernia. LYMPH NODES: No mesenteric or retroperitoneal VASCULAR: There is a 4.7 cm infrarenal aneurysm with a 16 mm noncalcified plaque along the anterior right lateral wall. No IV contrast extravasation. No periaortic edema pattern. Calcified plaques throughout the origin of the mesenteric arteries, left main renal artery, iliac arteries and femoral arteries. Calcified plaques in the coronary arteries and thoracic aorta. PELVIC VISCERA: Not enlarged prostate gland. Probable prominent right pampiniform plexus. OSSEOUS STRUCTURES: Radiopaque material within the vertebral without the likely status post kyphoplasty/vertebroplasty procedure. Intraosseous hemangioma, L1. Superior endplate compression deformities representing 20% volume loss at L3. Multilevel thoracolumbar spondylosis. Osteopenia versus fibrosis. Degenerative changes in the coxofemoral joints and sacroiliac joints. CT/CT abdomen pelvis w IV con IMPRESSION: Acute pulmonary artery emboli involving mostly the subsegmental pulmonary branches to the right lower lung lobe. 4.7 cm nonruptured infrarenal abdominal aortic aneurysm. Multifocal stable hepatic cysts and bilateral renal cysts. Cholelithiasis. Fleischner guidelines were followed. Electronically signed by: [place] MD 12/10/2024 03:24 PM EDT
--- NOTE | 2024-12-10 12:24 | ED_ITS ---
HPI - General Adult General Chief complaint: Abdominal Pain Stated complaint: LOW ABD PAIN PER EMS Time Seen by Provider: 12/10/24 12:24 Source: patient and EMS Mode of arrival: EMS Limitations: no limitations History of Present Illness ED Provider: Emma Umana PA-C HPI narrative: Patient is a 79 year old assigned male at with a history of COPD on 2 liters of Oxygen at baseline, bronchiectasis, BPH, AAA, and inguinal hernia repair in 06/2024, and urosepsis secondary to ESBL, presenting to the emergency department today with lower abdominal pain, constipation, and cough. Patient states that over the last week he has been feeling generally unwell with lower abdominal pain, constipation, a cough, and dizziness. Patient denies any other complaints at this time. Related Data Home Medications ?Medication ?Instructions ?Recorded ?Confirmed albuterol sulfate 90 mcg/actuation 2 puff inhalation Q 6H PRN 11/08/22 08/15/24 aerosol inhaler (Ventolin HFA) Shortness Of Breath Or Wheezing aspirin 81 mg tablet,delayed 81 mg PO DAILY 11/08/22 0 08/15/24 release clopidogrel 75 mg tablet 75 mg PO DAILY 04/16/2307/24 fluticasone fur. 200 mcg-umeclid 1 ea inhalation DAILY 03/12/24 08/15/24 62.5 mcg-vilant 25 mcg inhalat.powder (Trelegy Ellipta) chlorthalidone 25 mg tablet 25 mg PO DAILY 07/02/24 aluminum-mag hydroxide-simethicone 20 ml PO BID PRN Ac id Reflux 07/31/24 08/15/24 200 mg-200 mg-20 mg/5 mL oral susp (Antacid Liquid) gpcjpdqyvklsu-AG-xyzubrvhnobbb 5 30 ml PO Q4H PRN Coug h 07/31/24 08/15/24 mg-10 mg-325 mg/15 mL oral liquid (Daytime Cold-Flu) Previous Rx's ?Medication ?Instructions ?Recorded nebulizers #1 ea 11/14/22 ipratropium 0.5 mg-albuterol 3 mg 3 ml inhalation QID PRN for 10/09/24 (2.5 mg base)/3 mL nebulization wheezing #180 mL soln Allergies Allergy/AdvReac Type Severity Reaction Status Date / Time No Known Allergies Allergy Verified 12/10/24 11:55 Review of Systems 2 Constitutional: Constitutional: Reports as per HPI Eyes: Eyes: Reports as per HPI ENT: Reports as per HPI Cardiovascular: Cardiovascular: Reports as per HPI Respiratory: Respiratory: Reports as per HPI Gastrointestinal: Gastrointestinal: Reports as per HPI Genitourinary: Genitourinary: Reports as per HPI Musculoskeletal: Musculoskeletal: Reports as per HPI Integumentary/Breasts: Skin/Breast: Reports as per HPI Neurologic: Reports as per HPI Psychiatric: Psychiatric: Reports as per HPI Endocrine: Endocrine: Reports as per HPI Hematologic/Lymphatic: Hematologic/Lymphatic: Reports as per HPI Allergic/Immunologic: Allergic/Immunologic: Reports as per HPI [facility] Past Medical History Attestation statement: The following information was validated with the patient. Source: old records reviewed and nursing notes reviewed Medical History COPD (chronic obstructive pulmonary disease) O2 dependent No natural teeth Mixed simple and mucopurulent chronic bronchitis Bronchiectasis PVD (peripheral vascular disease) with claudication Elevated cholesterol Personal history of COVID-19 BRANDAN (generalized anxiety disorder) Oxygen dependent Urinary retention Abdominal pain Respiratory failure with hypoxia Mucus plugging of bronchi PAD (peripheral artery disease) AAA (abdominal aortic aneurysm) without rupture Emphysema lung Surgical History Left inguinal hernia (07/09/24) Hx of colonoscopy Hx of hand surgery (~1984) Hernia, ventral (04/19/23) Social History Social History Household Members: Family and Children Household Members Other:: Adult son Housing: House Are you a primary care connector to a significant other at home: No Do you presently have visiting nurse or other home services: No Alcohol intake: former Patient Tobacco Use Status: Former Tobacco user Tobacco use type: Cigarette Second Hand Smoke Exposure: No Advance Directives: No Advance Directives Information Provided: No Do you have a plan to hurt others: No Plan service: No Physical Exam ED Vital Signs: Vital Signs - 24 hr 12/10/24 11:54 12/10/24 16:22 Temperature 99.2 F Pulse Rate 98 86 Respiratory Rate 21 H 24 H Blood Pressure 114/80 134/79 Pulse Oximetry 94 94 Oxygen Delivery Method Nasal Cannula Nasal Cannula Oxygen Flow Rate 2 BMI result Body Mass Index 20.7 Const General: cooperative, no acute distress, alert and awake Nutritional Appearance: well nourished Orientation/consciousness: patient oriented x3 HENMT Head: Yes normal to inspection and Yes atraumatic Ears: hearing grossly normal bilaterally and external ears normal General nose exam: Normal external nose present, no nasal discharge noted and no epistaxis Face and sinus: Yes normal facial exam, No abrasion and No laceration Mouth: Normal oral and palatal mucosa present, no drooling and no muffled voice Eyes General: appearance normal, both eyes and all related structures Periorbital: periorbital findings normal Eyelids: Yes eyelids normal Conjunctivae: conjunctivae normal Pupils: Equal, round and reactive pupils present EOM: EOMs intact bilaterally Neck Neck: Yes normal visual inspection and Yes full ROM Resp Effort & Inspection: able to speak in complete sentences and labored (on 2 liters of oxygen via nasal cannula) GI Palpation (GI): Soft to palpation, not firm, nontender, no guarding and not rigid Neuro General: patient oriented x3, moves all extremities and CN's II-XI intact bilaterally Cranial nerves: Yes Equal, round and reactive pupils present Cognition (Neuro): normal cognition Extrem General: Yes normal to inspection, Yes full ROM and Yes capillary refill normal Psych Appearance: grossly normal Mental Status: mental status grossly normal Affect: normal affect Attitude: cooperative Thought process: Normal thought process present Thought content: Normal thought content present Insight: Good insight present (Psych) Medications Administered Discontinued Medications Generic Name Dose Route Start Last Admin Trade Name Tysonq PRN Reason Stop Dose Admin Ertapenem 1 gm 12/10/24 12:01 12/10/24 12:52 Ertapenem Sodium 1 Gm Vial IVPUSH 12/10/24 12:02 1 gm ONCE ONE Administration Acetaminophen 1,000 mg in 100 mls @ 400 mls/hr 12/10/24 12:01 12/10/24 12:39 Ofirmev IV 12/10/24 12:15 Infused ONCE ONE Infusion Iohexol 85 ml 12/10/24 14:55 12/10/24 14:56 Iohexol 350 Mg/Ml 100 Ml Infus..Btl IV 12/10/24 14:56 85 ml ONCE ONE Administration Medical Decision Making Medical Decision Making MDM Narrative: Patient is a 79 year old assigned male at with a history of COPD on 2 liters of Oxygen at baseline, bronchiectasis, BPH, AAA, and inguinal hernia repair in 06/2024, and urosepsis secondary to ESBL, presenting to the emergency department today with lower abdominal pain, constipation, and cough. Patient's physical exam was as noted in the physical exam portion of this note. Patient's blood work showed CRP of 24.50, BNP of 469, potassium of 3.0, WBC count of 13.8. Patient's urine is pending Patient's EKG was unremarkable. Patient's chest x-ray showed a new spciulated density in the left upper lobe suspicious for neoplasm. Patient's chest CT showed: Severe centrilobular emphysema with bilateral upper lobe bullous changes. Superimposed reticulonodular opacities throughout the medial left upper lobe is consistent with superimposed pneumonia Diffuse small airway thickening with endobronchial mucous plugging in both lower lobes Stable reticular parenchymal scarring in both lower lobes Patient's abdominal CT showed: Acute pulmonary artery emboli involving mostly the subsegmental pulmonary branches to the right lower lung lobe 4.7 cm nonruptured infrarenal abdominal aortic aneurysm Multifocal stable hepatic cysts and bilateral renal cysts Cholelithiasis Patient's clinical presentation is most consistent with penumonia and a PE with no evidence of current sepsis (@1600). Patient was given IV ertapenem by my attending physician, Dr. Aguilar. Given the patient's hx of aneurysm and his new PE, I consulted with the vascular surgeon - Dr. Suero. He recommended lovenox. I spoke with the hospitalist team who agreed to admission. I explained my physical exam findings as well as all test results to the patient. I answered all questions asked by the patient. Patient verbalized agreement and understanding with this treatment plan and admission. Differential Diagnosis Differential Diagnoses: The differential diagnosis associated with the presentation includes PE PNA Hypoxia UTI Abdominal pain Admission/Observation Consideration of admission/observation: Escalation of care including admission/observation considered Patient admitted as noted in the MDM Rationale portion of this note. Consult Healthcare Provider Management of the patient was discussed with: Hospitalist (agreed to admission as noted in the MDM Rationale portion of this note. ) and [employer] Worker (spoke with the vascular surgeon as noted in the MDM Rationale portion of this note. ) Lab Data [facility] Lab Attestation statement: I reviewed the patient's lab results. My interpretation of these results are in the MDM Rationale portion of this note. 12/10/24 12:37 12/10/24 12:37 Labs: Lab Results 12/10/24 Range/Units 12:37 WBC 13.8 H (4.8-10.8) X10*3/uL RBC 4.14 L D (4.60-5.80) X10*6/uL Hgb 12.6 L D (14.0-18.0) g/dl Hct 36.4 L (42.0-52.0) % MCV 87.9 (80.0-98.0) fL MCH 30.4 (27.0-33.0) pg MCHC 34.6 (31.0-36.0) g/dl RDW 13.4 (11.0-16.0) % Plt Count 334 D (160-400) X10*3/uL MPV 9.4 (9.4-12.4) fL Immature Gran % (Auto) 1.0 H (0.0-0.4) % Neut % (Auto) 77.7 H (45-73) % Lymph % (Auto) 6.5 L (20-40) % [place] % (Auto) 14.4 H (2-11) % Eos % (Auto) 0.1 (0-4) % Baso % (Auto) 0.3 (0-2) % Lymph # (Auto) 0.9 L (1.2-4.9) X10*3/uL [place] # (Auto) 2.0 H (0.1-1.2) X10*3/uL Eos # (Auto) 0.0 (0.0-0.4) X10*3/uL Baso # (Auto) 0.0 (0.0-0.2) X10*3/uL Abs Immat Gran (auto) 0.14 H (0.00-0.03) X10*3/uL Absolute Neuts (auto) 10.7 H (2.0-8.3) x10*3/uL Absolute Nucleated RBC 0.000 (0.0-0.012) X10*3/uL Nucleated RBC % (auto) 0.0 (0.0-0.2) /100WBC Smear Tech's Comments VERIFIED Sodium 137 (135-145) mmol/L Potassium 3.0 L D (3.3-5.1) mmol/L Chloride 93 L (96-108) mmol/L Carbon Dioxide 36 H (22-29) mmol/L Anion Gap 11 L (12-20) BUN 22 H (9-16) mg/dL Creatinine 0.99 (0.5-1.4) mg/dL Estim Creat Clear Calc 54.3 Estimated GFR > 60 Random Glucose 123 H (60-115) mg/dL Lactic Acid 1.1 (0.5-2.0) mmol/L Calcium 9.2 D (8.4-10.2) mg/dL Magnesium 1.9 (1.6-2.6) mg/dL Total Bilirubin 0.5 (0.0-1.0) mg/dL Direct Bilirubin 0.2 (0.0-0.5) mg/dL AST 15 (5-37) U/L ALT 9 (0-40) U/L Alkaline Phosphatase 57 (39-117) U/L Troponin I High Sens 3.8 (<3.5-35.0) ng/L C-Reactive Protein 24.50 H (< or = 0.50) mg/dL NT-Pro-B Natriuret Pep 469.0 H (<300) pg/mL Total Protein 7.4 (6.5-8.0) g/dL Albumin 3.9 (3.5-5.0) g/dL Lipase 14 (8-78) U/L Procalcitonin 0.26 ng/mL COVID-19 (ANGEL) Negative (Negative) COVID-19 Clin Com See Note Influenza Type A (ISABELLE) Negative (Negative) Influenza Type B (ISABELLE) Negative (Negative) Influenza A & B Note See Note Independent Interpretation I performed an independent interpretation of an: EKG, Plain X-Ray and CT Scan Interpretation: My interpretation is in agreement with the radiologist's impression of these imaging studies. L Reason for Exam: cough EXAMINATION: XR CHEST 1 VIEW HISTORY: cough COMPARISON: Comparison is made with the prior examination dated 08/15/2024. FINDINGS: A single AP portable view of the chest performed at 12:46 PM is submitted. The lungs remain hyperinflated consistent with COPD. There is a new spiculated density in the left upper lobe. There is scarring at the lung bases. There is no pleural effusion, pneumothorax, or pulmonary vascular congestion. The heart is normal in size. The patient is status post mid thoracic kyphoplasty. XR/XR chest 1V IMPRESSION: New spiculated density in the left upper lobe suspicious for neoplasm. Further evaluation with chest CT is recommended. Electronically signed by: Christiano Reina MD 12/10/2024 12:55 PM EDT RP Dictated By: Christiano Reina MD Signed By: Electronically signed by Christiano Reina MD 12/10/24 1255 Report Number: [id number]: Total DLP = 480.83 mGy-cm Reason for Exam: lower abdominal pain, fevers EXAMINATION: CT ABDOMEN AND PELVIS WITH CONTRAST CLINICAL INFORMATION: Lower abdominal pain. Fever. COMPARISON: August 15, 2024 TECHNIQUE: Multidetector volumetric images were obtained from the superior aspect of the liver through the pubic symphysis following administration 85 mL of Omnipaque 350 intravenous contrast. Sagittal and coronal reformatted images were obtained on the technologist's workstation. Oral contrast: No This CT examination was performed using dose optimization techniques as appropriate, variously including the following: *Automated exposure control *Adjustment of mA and/or kV according to patient size (this includes techniques or standardized protocols for targeted exams where dose is matched to indication/reason for exam; i.e. extremities or head) *Use of iterative reconstruction technique DLP: 779 mGy centimeter. FINDINGS: LUNG BASES: Centrilobular emphysematous changes with patchy pulmonary groundglass lung bases. Numerous intraluminal filling defects in the distal right main pulmonary artery to its subsegmental pulmonary branches right lower lung lobe and right middle lung lobe Probable similar abnormality in the left lower lung lobe.. LIVER, GALLBLADDER, AND BILIARY TREE: Liver measures 15 cm. There are multifocal, lobulated and round well-defined mostly fluid density lesions throughout the liver parenchyma, the largest measures 4.5 cm. Main portal veins and hepatic veins are patent. Multiple layering less than 1.1 cm, polygonal shaped calcifications, gallbladder lumen. No pericholecystic fluid collection or gallbladder wall thickening. Gallbladder is nondistended. No intrahepatic or extrahepatic biliary ductal dilatation. PANCREAS: No focal lesion. No peripancreatic fluid collection. Decreased pancreatic volume. No main pancreatic ductal dilatation. SPLEEN: 10 cm. ADRENAL GLANDS: No nodular lesion. KIDNEYS AND URETERS: No hydronephrosis. No gross nephrolithiasis. Multifocal exophytic, cortical medullary junction and parapelvic cystic lesions. Normal enhancement pattern of the renal cortex. BLADDER: Fluid-filled. No distention. Questionable wall thickening. GASTROINTESTINAL TRACT: Stool within the nondilated large intestine. Appendix is normal. Gas and fluid-filled nondistended small bowel loops. No intestinal wall thickening. No ascites. No pneumoperitoneum. No pneumatosis intestinalis. ABDOMINAL WALL: Postsurgical changes in the left inguinal canal. Diastases abdominal rectus muscles in the periumbilical region without gross hernia. LYMPH NODES: No mesenteric or retroperitoneal VASCULAR: There is a 4.7 cm infrarenal aneurysm with a 16 mm noncalcified plaque along the anterior right lateral wall. No IV contrast extravasation. No periaortic edema pattern. Calcified plaques throughout the origin of the mesenteric arteries, left main renal artery, iliac arteries and femoral arteries. Calcified plaques in the coronary arteries and thoracic aorta. PELVIC VISCERA: Not enlarged prostate gland. Probable prominent right pampiniform plexus. OSSEOUS STRUCTURES: Radiopaque material within the vertebral without the likely status post kyphoplasty/vertebroplasty procedure. Intraosseous hemangioma, L1. Superior endplate compression deformities representing 20% volume loss at L3. Multilevel thoracolumbar spondylosis. Osteopenia versus fibrosis. Degenerative changes in the coxofemoral joints and sacroiliac joints. CT/CT abdomen pelvis w IV con IMPRESSION: Acute pulmonary artery emboli involving mostly the subsegmental pulmonary branches to the right lower lung lobe. 4.7 cm nonruptured infrarenal abdominal aortic aneurysm.Multifocal stable hepatic cysts and bilateral renal cysts. Cholelithiasis. Fleischner guidelines were followed. Electronically signed by: [place] MD 12/10/2024 03:24 PM EDT Dictated By: Indio Phillips MD Signed By: Electronically signed by Indio Pinto MD 12/10/24 1524 Reason for Exam: cough EXAMINATION: XR CHEST 1 VIEW HISTORY: cough COMPARISON: Comparison is made with the prior examination dated 08/15/2024. FINDINGS: A single AP portable view of the chest performed at 12:46 PM is submitted. The lungs remain hyperinflated consistent with COPD. There is a new spiculated density in the left upper lobe. There is scarring at the lung bases. There is no pleural effusion, pneumothorax, or pulmonary vascular congestion. The heart is normal in size. The patient is status post mid thoracic kyphoplasty. XR/XR chest 1V IMPRESSION: New spiculated density in the left upper lobe suspicious for neoplasm. Further evaluation with chest CT is recommended. Electronically signed by: Christiano Reina MD 12/10/2024 12:55 PM EDT RP Dictated By: Christiano Reina MD Signed By: Elecronically signed by Christiano Reina MD 12/10/24 1255 I independently interpreted this EKG and am in agreement with the below findings: Vent. Rate: 93 BPM Atrial Rate: 93 BPM P-R Int: 172 ms QRS Dur: 82 ms QT Int: 338 ms P-R-T Axes: 52 -5 -1 degrees QTcB Int: 420 ms Normal sinus rhythm Nonspecific ST and T wave abnormality When compared with ECG of 15-Aug-2024 10:13, Nonspecific T wave abnormality now evident in Inferior leads Nonspecific T wave abnormality now evident in Anterior leads Radiology Impression Discussion of test interpretation with radiology: I have reviewed the radiologist's reading. Independent Historian Clinical information obtained from an independent historian. History obtained from or confirmed by: EMS (EMS provided additional history and confirmed the histroy provided by the patient. ) Critical Care Time Critical Care Time Critical Care Time: Yes Total Critical Care Time: 38 Attestation: I spent 38 minutes of Critical Care Time with this patient. This does not include time spent on separately reported billable procedures. Discharge Plan Discharge Clinical Impression: Pneumonia, Pulmonary embolism Patient Disposition: Admitted As Inpatient Print Language: Syriac
[2024-12-10 12:51] LABS: Hematocrit 36.4 % (42.0-52.0); Hemoglobin 12.6 g/dl (14.0-18.0); Imm Gran Abs Auto 0.14 X10*3/uL (0.00-0.03); Imm Gran Pct Auto 1.0 % (0.0-0.4); Lymphocytes Absolute Auto 0.9 X10*3/uL (1.2-4.9); MANUAL DIFF FLAG SCAN; Mean Corpuscular HGB Conc 34.6 g/dl (31.0-36.0); Mean Corpuscular Hemoglobin 30.4 pg (27.0-33.0); Mean Corpuscular Volume 87.9 fL (80.0-98.0); NRBC Abs Auto 0.000 X10*3/uL (0.0-0.012); NRBC Pct Auto 0.0 /100WBC (0.0-0.2); Platelet Count 334 X10*3/uL (160-400); Red Blood Count 4.14 X10*6/uL (4.60-5.80); SCAN SMEAR FLAG 1; White Blood Count 13.8 X10*3/uL (4.8-10.8)
[2024-12-10 13:15] LABS: Alanine Aminotransferase 9 U/L (0-40); Albumin Level 3.9 g/dL (3.5-5.0); Alkaline Phosphatase 57 U/L (39-117); Anion Gap 11 (12-20); Aspartate Amino Transferase 15 U/L (5-37); Blood Urea Nitrogen 22 mg/dL (9-16); Calcium 9.2 mg/dL (8.4-10.2); Carbon Dioxide 36 mmol/L (22-29); Chloride 93 mmol/L (96-108); Creatinine Clr Calc Pharmacy 54.3; Estimated Glomerular Filt Rate > 60; Lipase 14 U/L (8-78); Magnesium 1.9 mg/dL (1.6-2.6); Potassium 3.0 mmol/L (3.3-5.1); Sodium 137 mmol/L (135-145); Total Protein 7.4 g/dL (6.5-8.0)
[2024-12-10 13:16] LABS: COVID-19 Test Negative (Negative); IDNOW Serial# 08D9AD1C; NT Pro B Type Natriuretic Pept 469.0 pg/mL (<300)
[2024-12-10 13:17] LABS: Troponin-I High Sensitivity 3.8 ng/L (<3.5-35.0)
[2024-12-10 13:31] LABS: Procalcitonin 0.26 ng/mL
[2024-12-10 13:37] LABS: IDNOW Serial# 55D5AD1C; Influenza B2 Negative (Negative)
--- OUTSIDE RECORDS SUMMARY | 2024-12-10 14:28 | XMS_ITS | Clinical Summary ---
Author Organization [facility] Address [address] [place] [id number] Phone Care Team Providers Care Transition Assistant Name Role Phone Pcp, Unknown Primary Care Provider Unavailabl e Social History Tobacco Use Types Packs/Day Years Used Date Smoking Tobacco: Never Assessed Education Answer Date Recorded Are you interested in more education? Not on nicole e 08/20/2024 Are you concerned about learning? Not on file 08/20/2024 No 08/20/2024 No 08/20/2024 Digital Access Answer Date Recorded No 08/20/2024 No 08/20/2024 Reliable internet access at home? Not on file 08/20/2024 Device with a working camera? Not on file Sex and Gender Information Value Date Recorded Sex Assigned at Not on file Legal Sex Male 10:42 AM EDT Gender Identity Not on file Sexual Orientation Not on file Plan of Treatment Not on file Medical Devices Not on file Insurance [employer] O MEDICARE REPLACEMENT [employer] PPO MEDICARE REPLACEMENT [employer] PPO MEDICARE REPLACEMENT [employer] PPO MEDICARE REPLACEMENT [employer] PPO MEDICARE REPLACEMENT [employer] PPO MEDICARE REPLACEMENT Care Teams Transition Assistant Relationship Specialty Start Date End Date Pcp, Unknown PCP - General 11/07/22 Additional Source Comments The information contained in this document represents components of the legal health record. It is not the complete legal health record.[facility]
--- OUTSIDE RECORDS SUMMARY | 2024-12-10 14:28 | XMS_ITS | Clinical Summary ---
Author Organization [address] Address [address] [place] [phone] Phone Care Team Providers Care Instructor Painting Name Role Phone Go Zamora MD Primary Care Provider [phone] Allergies No known active allergies Medications amLODIPine [...] A DAY 180 tablet 1 5 Active senna (SENOKOT) 8.6 mg tablet Take 1 tablet (8.6 mg total) by mouth 1 (one) time each day. 5 Active chlorthalidone (HYGROTON) 25 mg tablet TAKE 1 TABLET BY MOUTH 1 TIME EACH DAY. 90 tablet 2 5 Active clopidogreL (PLAVIX) 75 mg tablet Take 1 tablet (75 mg total) by mouth 1 (one) time each day. 90 each 1 5 12/10/19 25 Hospital, Clinic, or Other Facility Administered Medication Ordered Dose Route Frequency Start Date End Date Status DOBUTamine (DOBUTREX) 500 mg in dextrose 5% 250 mL (2 mg/mL) infusion (premix) 2720 mcg/min IV Titrated 06/02/2024 Active Active Problems Problem Noted Date Diagnosed Date Abnormal EKG 05/14/2024 Primary hypertension 05/14/2024 Former smoker 05/14/2024 Urinary retention 03/11/2023 Abdominal aortic aneurysm (A AA) without rupture ([facility] V24) 10/13/2021 Gastroesophageal reflux disease 10/13/2021 COVID-19 09/18/2021 Generalized anxiety disorder 09/18/2021 Hyperlipidemia 12/09/2018 Oxygen dependent 07/18/2017 Hyperkeratosis 03/04/2013 PAD (peripheral artery disease) ([facility]) COPD (chronic obstructive pu lmonary disease) ([facility] V24, [facility] V28) 03/16/2009 Encounters Date Type Department Care Team Description 10/21/2024 Telephone Internal Medicine - [address] [phone] Go Zamora MD 09/30/2024 10:30 AM EDT Telemedicine Internal Medicine - [address] [phone] Encounter for subsequent annual wellness visit (AWV) in Medicare patient (Primary Dx) 09/10/2024 10:30 AM EDT Office Visit Internal Medicine - [address] [phone] Go Zamora MD Mixed simple and mucopurulent chronic bronchitis ([facility] V24, [facility] V28) (Primary Dx); Lower abdominal pain; Cystitis 09/09/2024 Telephone Internal Medicine - [address] [phone] Go Zamora MD from Last 3 Months Immunizations Name Administration Dates Next Due Influenza trivalent, 0.5mL ( Fluad) 65yo and older 12/25/2021,01/25/2021,12/09/2018,01/28,01/19/2017,12/30/2015,02/24/2015 ,01/26/2014,03/04/2013,02/24/2012,1210/2010,04/17/2010 Influenza trivalent, with pr eservative (Fluzone; Afluria) [...] PROCEDURE: HISTORICAL HAND SURGERY COLONOSCOPY 07/04/2010 PROCEDURE: MA COLONOSCOPY FLX DX W/COLLJ SPEC WHEN PFRMD; COMMENT: Negative/incomplete to 60 cm, limited by hypoxemia HERNIA REPAIR Medical History Medical History Date Comments COPD (chronic obstructive pu lmonary disease) ([facility] V24, [facility] V28) 03/16/2009 DX:COPD (chronic o bstructive pulmonary disease) ([facility]) Hyperkeratosis 03/04/2013 DX:Hyperkeratosi s PVD (peripheral vascular dis ease) with claudication ([facility]24) 03/04/2013 DX:PVD (peripheral vascular disease) with claudication ([facility]) Hypercholesteremia Hypertension Anxiety Depression Family History Medical History Relation Name Comments No Known Problems Brother No Known Problems Father No Known Problems Mother No Known Problems Sister No Known Problems Son Relation Name Status Comments Brother x9 8 Father Mother Sister x8 6 passed Son Alive Social History Tobacco Use Types Packs/Day Years Used Date Smoking Tobacco: Former Cigarettes Q uit: 08/21/2013 Smokeless Tobacco: Former Tobacco Cessation:Counseling Given: Not Answered Alcohol Use Standard Drinks/Week Comments Yes 0 (1 standard drink = 0.6 oz pur e alcohol) rarely Housing Instability Answer Date Recorde d Are you worried that in the next 2 months you may not have stable housing? No 09/30/2024 Food Access & Nutrition Answer Date Rec orded Do you have access to a vari ety of food including fruits and vegetables? Yes 09/30/2024 Access to Healthcare Answer Date Record ed Within the last 3 months, ho w many times did you visit the emergency department for your medical care? 1 09/30/2024 Health Literacy Answer Date Recorded How often do you need to hav e someone help you when you read instructions, pamphlets, or other written material from your doctor or pharmacy? Never 09/30/2024 Caregiver: How often do you need to have someone help you when you read instructions, pamphlets, or other written material from your doctor or pharmacy? Not on file 09/30/2024 Financial Risk Answer Date Recorded How hard is it for you to pa y for the very basics like food, housing, medical care, and air conditioning / heating? Not very hard 09/30/2024 Transportation Answer Date Recorded Has the lack of transportati on kept you from meetings, work, or from getting things needed for daily living? No Has the lack of transportati on kept you from medical appointments or from getting medications? No 09/30/2024 Social Isolation Answer Date Recorded How often do you feel lonely or isolated from th ose around you? Never 09/30/2024 Food Risk Answer Date Recorded Within the past 12 months we worried whether our food would run out before we got money to buy more. Never true 09/30/2024 Within the past 12 months th e food we bought just didn't last and we didn't have money to get more. Never true 09/30/2024 Dependent Care Answer Date Recorded Do you need help finding or paying for care for your loved ones. For example, child welfare social worker or elderly care for an older adult? No 09/30/2024 Education Answer Date Recorded Do you think completing more education or training, like finishing a GED, going to college, or learning a trade, would be helpful for you? No 09/30/2024 Employment and Income Answer Date Recor ded During the last four weeks, have you been actively looking for work? No 09/30/2024 Living Situation Answer Date Recorded What is your living situation? 0 09/30/2024 Sex and Gender Information Value Date Recorded [...] Tests (FOBT/FIT) 03/03/2022 Hepatitis C Screening 03/03/2022 DTaP,Tdap,and Td Vaccines (2 - Td or Tdap) 02/27/2024 02/26/2014 COVID-19 Vaccine (4 - season) 2024 12/25/2021, 07/30/2020, 07/09/2020 Influenza Vaccine (#1) 2024 , 01/30/2023, 12/25/2021, Additional history exists Hypertension/CHF/CAD Annual BMP Blood Test 08/31/2025 08/31/2024, 08/24/2024, 08/20/2024, Additional history exists Falls Risk Assessment 09/30/2025 09/30/2024, 024 Medicare Annual Wellness Visit 09/30/2025 09/30/2024 Social Influencers of Health Screening 09/30/2025 09/30/2024 Cholesterol Screening (Lipid Panel) 05/09/2028 05/09/2023 Pneumococcal Vaccine: 50+ Years Completed 03/07/2017, 02/26/2014 Depression Screening Completed 09/30/2024, 07/09/19 24 HIB Vaccines Aged Out No longer eligi [...] Name Priority Date/Time Associated Diagnosis Comments EXTERNAL XRAY REPORT 12/10/2024 BASIC METABOLIC PANEL Routine 05/08/2024 11:46 AM EST Pre-operative clearance DEPRESSION SCREENING Routine 07/09/2023 FALLS RISK ASSESSMENT Routine 07/09/2023 LIPID PANEL Routine 05/09/2023 from Last 3 Months or Most Recently Relevant to Health Maintenance Results * External Xray Report (12/10/2024) Anatomical Region Laterality Modality Radiographic Kristie ging us Provider [facility] XR PROCEDURES Final Result * (ABNORMAL) Basic metabolic panel (05/08/2024 11:46 [...] [facility] Comment:Calculation based on the Chronic Kidney Disease Epidemiology Collaboration (CKD-EPI) equation refit without adjustment for race. BUN/Creatinine Ratio 28.2 LAB [...] [facility] [address] [place] [address], * Falls Risk Assessment (07/09/2023) Pathologist [facility] Falls Risk Assessment abstracted Historical Provider HEALTH MAINTENANCE Final Result * Depression Screening (07/09/2023) Pathologist [facility] Depression Screening abstracted Historical Provider HEALTH [...] Relevant to Health Maintenance Insurance [place] MED[place]VANTAGE Advance Directives Documents on File Type Date Recorded Patient Information Resources Director Expl anation Health Care Decision (hx) 07/18/2015 AD MIDDLETON DIRECTIVE Health Care Decision (hx) 07/18/2015 AD MIDDLETON DIRECTIVE Health Care Decision (hx) 07/17/2015 AD MIDDLETON DIRECTIVE Health Care Decision (hx) 07/17/2015 AD MIDDLETON DIRECTIVE Care Teams Instructor Painting Relationship Specialty Start Date End Date Go Zamora MD [address] [place] [id number] PCP - General Internal Medicine 05/06/24
[2024-12-10] MEDS: iohexoL 350 MG/ML 100 ML INFUS..BTL 85 ML IV (14:56)
[2024-12-10 16:57] LABS: Hematocrit 34.0 % (42.0-52.0); Hemoglobin 11.8 g/dl (14.0-18.0); Mean Corpuscular HGB Conc 34.7 g/dl (31.0-36.0); Mean Corpuscular Hemoglobin 30.4 pg (27.0-33.0); Mean Corpuscular Volume 87.6 fL (80.0-98.0); NRBC Abs Auto 0.000 X10*3/uL (0.0-0.012); NRBC Pct Auto 0.0 /100WBC (0.0-0.2); Platelet Count 304 X10*3/uL (160-400); Red Blood Count 3.88 X10*6/uL (4.60-5.80); White Blood Count 13.2 X10*3/uL (4.8-10.8)
[2024-12-10 17:03] LABS: INTERNATIONAL NORM RATIO 1.1 (0.9-1.1); Prothrombin Time 12.1 SEC (10.9-12.4)
[2024-12-10 17:05] LABS: Partial Thromboplastin Time 27.5 SEC (26.7-34.1)
--- NOTE | 2024-12-10 17:30 | P.HPHOSP_ITS ---
History of Present Illness Date of Service: 12/10/24 Attending physician on admission: Aspen Pedro Chief Complaint: copd ,pneumonia ,pulm embolism 79 y/o M with pmhx COPD on 2 liters of Oxygen at baseline, bronchiectasis, BPH, AAA, and inguinal hernia repair in 06/2024, and urosepsis secondary to ESBL, presented to Ed for lower abdominal pain, constipation, and cough. patient says lower abdominal pain, constipation, cough. Patient says abdominal pain mostly in suprapubic area, also has cough. He says that in addition to cough he feels short of breath with exertion. Is feeling these symptoms from almost a week or so. Patient denies any chest pain or nausea vomiting or fever or chills. Lab imaging reviewed: WBC count: 13.2 Potassium 3.0 Lactic acid 1.9 CRP 24.50 BNP 469 Troponin 3.8 EKG: NSR. CT chest:Severe centrilobular emphysema with bilateral upper lobe bullous changes. Superimposed reticulonodular opacities throughout the medial left upper lobe is consistent with superimposed pneumonia. 2. Diffuse small airway thickening with endobronchial mucous plugging in both lower lobes. 3. Stable reticular parenchymal scarring in both lower lobes ct abd:Acute pulmonary artery emboli involving mostly the subsegmental pulmonary branches to the right lower lung lobe. 4.7 cm nonruptured infrarenal abdominal aortic aneurysm.Multifocal stable hepatic cysts and bilateral renal cysts.Cholelithiasis. Review of Systems 2 Review of Systems: as above. Yes all other systems are reviewed and are negative [facility] Medical History COPD (chronic obstructive pulmonary disease) O2 dependent No natural teeth Mixed simple and mucopurulent chronic bronchitis Bronchiectasis PVD (peripheral vascular disease) with claudication Elevated cholesterol Personal history of COVID-19 BRANDAN (generalized anxiety disorder) Oxygen dependent Urinary retention Abdominal pain Respiratory failure with hypoxia Mucus plugging of bronchi PAD (peripheral artery disease) AAA (abdominal aortic aneurysm) without rupture Emphysema lung Surgical History Left inguinal hernia (07/09/24) Hx of colonoscopy Hx of hand surgery (~1984) Hernia, ventral (04/19/23) Social History Household Members: Family and Children Household Members Other:: Adult son Housing: House Are you a primary personal care attendant to a significant other at home: No Do you presently have visiting nurse or other home services: No Alcohol intake: former Patient Tobacco Use Status: Former Tobacco user Tobacco use type: Cigarette Second Hand Smoke Exposure: No Advance Directives: No Advance Directives Information Provided: No Do you have a plan to hurt others: No Plan service: No Meds Allergies Allergy/AdvReac Type Severity Reaction Status Date / Time No Known Allergies Allergy Verified 12/10/24 11:55 Active Medications: Current Medications Acetaminophen (Acetaminophen 325 Mg Tablet) 650 mg PO Q6H PRN PRN Reason: Pain, Mild 1-3,fever,headache Calcium Carbonate (Calcium Carbonate 750 Mg Tab.Chew) 750 mg PO Q4H PRN PRN Reason: Heartburn Enoxaparin Sodium (Enoxaparin Sodium 60 Mg/0.6 Ml Syringe) 60 mg 1 mg/kg (60 mg) SUBCUT BID [facility] Vancomycin HCl 1,500 mg/ (Sodium Chloride) 500 mls @ 333.333 mls/hr IV ONCE ONE Stop: 12/10/24 18:29 Last Admin: 12/10/24 17:29 Dose: 333.33 mls/hr Magnesium Hydroxide (Milk Of Magnesia 30 Ml Oral.Susp) 30 ml PO DAILY PRN PRN Reason: Constipation Melatonin (Melatonin 3 Mg Tablet) 6 mg PO BEDTIME PRN PRN Reason: Insomnia Sodium Chloride (0.9 % Sodium Chloride Flush 3 Ml Syringe) 3 ml IVFLUSH QSHIFT [facility] Home Medications ?Medication ?Instructions ?Recorded ?Confirmed ?Last Taken ?Type albuterol sulfate 90 mcg/actuation 2 puff inhalation Q 6H PRN 11/08/22 08/15/24 04/19/23 History aerosol inhaler (Ventolin HFA) Shortness Of Breath Or Wheezing aspirin 81 mg tablet,delayed 81 mg PO DAILY 11/08/22 0 08/15/24 08/14/24 History release clopidogrel 75 mg tablet 75 mg PO DAILY 04/16/2307/2408/14/24 History fluticasone fur. 200 mcg-umeclid 1 ea inhalation DAILY 03/12/24 08/15/24 08/14/24 History 62.5 mcg-vilant 25 mcg inhalat.powder (Trelegy Ellipta) chlorthalidone 25 mg tablet 25 mg PO DAILY 07/02/2408/14/24 History aluminum-mag hydroxide-simethicone 20 ml PO BID PRN Ac id Reflux 07/31/24 08/15/24 Unknown History 200 mg-200 mg-20 mg/5 mL oral susp (Antacid Liquid) [id number] 5 30 ml PO Q4H PRN Coug h 07/31/24 08/15/24 Unknown History mg-10 mg-325 mg/15 mL oral liquid (Daytime Cold-Flu) Physical Exam 2 Vital Signs and Narrative: Vital Signs: Last Vital Signs Temp 99.2 F 12/10/24 11:54 Pulse 86 12/10/24 16:22 Resp 24 H 12/10/24 16:22 BP 134/79 12/10/24 16:22 Pulse Ox 94 12/10/24 16:22 O2 Del Method Nasal Cannula 12/10/24 16:22 O2 Flow Rate 2 12/10/24 16:22 Oxygen Flow Rate 2 12/10/24 11:54 BMI result Body Mass Index 20.7 Appearance: Alert.? Oriented X3.? ?sob Eyes: Pupils equal, round and reactive to light.? Sclera nonicteric.? ENT: Pharynx normal.? Moist mucous membranes. cvs: rrr, [id number] . res:air entry diminshed at bases ,few wheezes ,mild use of accessory muscles. abd: no rebound or guarding ,nt, bs present. ext pulses present , no cyanosis neuro: axo3 , nonfocal. Results Labs 12/10/24 16:50 12/10/24 12:37 Labs: Laboratory Results - last 24 hr 12/10/24 12/10/24 12:37 16:50 MCV 87.9 87.6 MCH 30.4 30.4 MCHC 34.6 34.7 RDW 13.4 13.5 Plt Count 334 D 304 MPV 9.4 9.5 Immature Gran % (Auto) 1.0 H Neut % (Auto) 77.7 H Lymph % (Auto) 6.5 L [place] % (Auto) 14.4 H Eos % (Auto) 0.1 Baso % (Auto) 0.3 Lymph # (Auto) 0.9 L [place] # (Auto) 2.0 H Eos # (Auto) 0.0 Baso # (Auto) 0.0 Abs Immat Gran (auto) 0.14 H Absolute Neuts (auto) 10.7 H Absolute Nucleated RBC 0.000 0.000 Nucleated RBC % (auto) 0.0 0.0 Smear Tech's Comments VERIFIED PT 12.1 INR 1.1 APTT 27.5 Anion Gap 11 L Estim Creat Clear Calc 54.3 Estimated GFR > 60 Random Glucose 123 H Lactic Acid 1.1 Calcium 9.2 D Magnesium 1.9 Total Bilirubin 0.5 Direct Bilirubin 0.2 AST 15 ALT 9 Alkaline Phosphatase 57 Troponin I High Sens 3.8 C-Reactive Protein 24.50 H NT-Pro-B Natriuret Pep 469.0 H Total Protein 7.4 Albumin 3.9 Lipase 14 Procalcitonin 0.26 COVID-19 (ANGEL) Negative COVID-19 Clin Com See Note Influenza Type A (ISABELLE) Negative Influenza Type B (ISABELLE) Negative Influenza A & B Note See Note Imaging Radiologist's Impressions: Impressions Chest X-Ray 12/10/24 12:35 IMPRESSION: New spiculated density in the left upper lobe suspicious for neoplasm. Further evaluation with chest CT is recommended. Electronically signed by: Christiano Reina MD 12/10/2024 12:55 PM EDT RP Abdomen/Pelvis CT 12/10/24 14:34 IMPRESSION: Acute pulmonary artery emboli involving mostly the subsegmental pulmonary branches to the right lower lung lobe. 4.7 cm nonruptured infrarenal abdominal aortic aneurysm. Multifocal stable hepatic cysts and bilateral renal cysts. Cholelithiasis. Fleischner guidelines were followed. Electronically signed by: [place] MD 12/10/2024 03:24 PM EDT RP Chest CT 12/10/24 14:34 IMPRESSION: 1. Severe centrilobular emphysema with bilateral upper lobe bullous changes. Superimposed reticulonodular opacities throughout the medial left upper lobe is consistent with superimposed pneumonia. 2. Diffuse small airway thickening with endobronchial mucous plugging in both lower lobes. 3. Stable reticular parenchymal scarring in both lower lobes. 4. Ancillary findings as discussed. Electronically signed by: Andrew Gates MD 12/10/2024 03:11 PM EDT RP Assessment and Plan (1) Pneumonia: Qualifiers: Laterality: unspecified laterality Lung location: unspecified part of lung Pneumonia type: due to unspecified organism Qualified Code(s): J18.9 - Pneumonia, unspecified organism Status: Acute Plan 79 y/o M with pmhx COPD on 2 liters of Oxygen at baseline, bronchiectasis, BPH, AAA, and inguinal hernia repair in 06/2024, and urosepsis secondary to ESBL, presented to Ed for lower abdominal pain, constipation, and cough. patient says lower abdominal pain, constipation, cough. Patient says abdominal pain mostly in suprapubic area, also has cough. He says that in addition to cough he feels short of breath with exertion. Pneumonia: Significant shortness of breath with minimal exertion, cough. Has tachypnea(likely due to pulm emboli not due to sepsis), leucocytosis lactic acid normal Plan: Started on IV antibiotics, blood cultures sent, incentive spirometry, chest physiotherapy. Pulmonary embolism: ct abd:Acute pulmonary artery emboli involving mostly the subsegmental pulmonary branches to the right lower lung lobe. Troponin negative, elevated BNP Added Lovenox, we will check echo, venous dupplex . Acute hypokalemia: Added p.o. replacements. We will continue to monitor electrolytes and renal function. UTI: History of ESBL UTI As suprapubic pain, UA abnormal, urine culture needs to be sent In the ED patient received ertapenem. Continue meropenem Chronic respiratory failure secondary to COPD: No exacerbation Continue to monitor, and did nebs. History of AAA: Case discussed with the vascular: Currently no acute intervention, recommended to continue Lovenox. Patient will benefit from at least 2 midnight stay considering ESBL UTI requiring IV antibiotics, also pulmonary embolism-need further workup and respiratory status monitoring, as well as monitoring of renal function electrolytes. Above management discussed with the patient detail length he understand and in agreement with the above plan, time spent 70 minute, patient is full code. Staff was present during conversation. Quality Stroke Does the patient have a stroke diagnosis?: No VTE Prior VTE?: No VTE Risk Level:: Medical - moderate - high VTE Device Contraindication: N/A - Device Ordered VTE Drug Contraindication: N/A - Med Ordered
--- NOTE | 2024-12-10 18:01 | PHA.PROG ---
Admission Date/Time: December 10, 2024 16:59 Indication:Respiratory Weight in k.503 kg Serum Creatinine - Last 168 Hours 12/10/24 12:37 Creatinine 0.99 Estimated CrCl and GFR - Last 168 Hours 12/10/24 12:37 Estim Creat Clear Calc 54.3 Estimated GFR > 60 Vancomycin Loading Dose: 1500mg Current Vancomycin Dosing Regimen: 1250mg q24h Vancomycin Monitoring using AUC goal of 400 - 600 range with trough as surrogate marker: 523, 15.2 Date and Time for next Vancomycin Level to be drawn: 12/12 @ 1500 Pharmacist Comments on Vancomycin Plan: Vancomycin dosing will take advantage of [employer] as a clinical decision support tool that uses Bayesian modeling to calculate individual patient's pharmacokinetic parameters and forecast the patient's drug concentration time course with the target goal AUC 24 range of 400 - 600 mg/L/hr.
[2024-12-10] MEDS: Potassium Chloride ER 20 MEQ TAB.ER.PRT 40 MEQ PO (19:14)
[2024-12-10 19:26] LABS: Appearance Urine Clear; Glucose Urine UA Negative (Negative); PH 6.0 (5.0-9.0); Specific Gravity - Urine >= 1.030 (1.005-1.025); UMIC TRIGGER UACC YES
[2024-12-10] MEDS: Albuterol/Iprat 2.5/0.5MG 3 ML AMPUL.NEB INHALE (19:39)
[2024-12-10 19:42] LABS: UACC Culture Trigger YES
--- NOTE | 2024-12-10 20:00 | PHA.MEDREC ---
Pharmacy Consult ? Medication Reconciliation Pharmacy has completed the medication reconciliation. Patient wanted us to call son Richardson to confirm med list but was able to confirm that he took his medications today 12/10/24 except his inhaler. Called and spoke to henok Bai who confirmed med list by reading the bottles that patient has at home.
--- NOTE | 2024-12-10 21:41 | HO.NURTONUR ---
Pt arrived to ED c/o lower abd pain, constipation, and cough. Hx: COPD (2L O2@ baseline), bronchiectasis, BPH, AAA, inguinal hernia repair in 06/2024, and urosepsis secondary to ESBL. Patient currently denies CP/SOB/N/V/fevers. Admitted for IV abx for ESBL UTI, PE requiring further workup and respiratory status monitoring, L lobe pneumonia, and monitoring of electrolytes and cardiac rhythm. Awaiting delivery of subq lovenox. Pt tachypneic but denies SOB. Currently on 3L O2. Aaox4.
--- NOTE | 2024-12-10 23:17 | PC.NURSE ---
Took over care from MARCIE Hawkins, pt already has a bed assignment, report placed prior to my shift, pt being transported to room.
[2024-12-11] VITALS (18 sets, daily range): BP systolic 109–140; BP diastolic 59–98; PULSE 89–144; RESP 15–46; TEMP 36.3–37.2; O2SAT 83–96; BMI 21.0
--- NOTE | 2024-12-11 | ECG_ITS ---
Test Reason : MD order Blood Pressure : */* mmHG Vent. Rate : 140 BPM Atrial Rate : * BPM P-R Int : * ms QRS Dur : 74 ms QT Int : 352 ms P-R-T Axes : * 24 77 degrees QTcB Int : 537 ms Atrial fibrillation with rapid ventricular response Septal infarct , age undetermined Abnormal ECG When compared with ECG of 10-Dec-2024 12:49, Atrial fibrillation has replaced Sinus rhythm Vent. rate has increased by 47 bpm Septal infarct is now Present Nonspecific T wave abnormality, improved in Anterolateral leads Referred By: Josué Ambrosio Electronically Signed By: EBONY LOFTON
[2024-12-11] MEDS: 0.9 % Sodium Chloride Flush 3 ML SYRINGE IVFLUSH ×3 (01:17→17:25)
--- NOTE | 2024-12-11 07:00 | CA_ITS ---
Transthoracic Echocardiogram Patient (Last, First, Middle): Richardson Dao, Gender: Male Date of : 1945 Age: 79 Procedure Date: 12/11/2024 Procedure Type: Transthoracic [place]ogram [place] [facility] [place]: 175.26 cm Weight: 63.5 kg BSA: 1.78 m2 Heart Rate: 103 bpm BP: 124 / 59 mmHg Chemical Plant Manager: Referring MD: Aspen Pedro MD Symptoms: pulm embolimsm Study Quality: Fair ECG Rhythm: Sinus Conclusions: - The left ventricular systolic function is normal. The calculated ejection fraction is 59% by biplane method. - Moderately increased right ventricular cavity size. - No obvious valvular pathology seen on this study. Findings Left Ventricle Normal left ventricular cavity size. There is normal left ventricular wall thickness. The left ventricular systolic function is normal. The calculated ejection fraction is 59% by biplane method. There is no evidence of regional wall motion abnormalities. Diastolic function is normal for age. Right Ventricle Moderately increased right ventricular cavity size. There is normal right ventricular systolic function. Atria The left atrium is normal in size. The right atrium is moderately dilated. Aortic Valve The aortic valve was not well visualized. There is no aortic valve stenosis. There is no aortic valve regurgitation. Mitral Valve The mitral valve appears normal. There is no mitral valve regurgitation. There is no mitral valve stenosis. Pulmonic Valve The pulmonic valve is likely normal. Tricuspid Valve There is trace tricuspid valve regurgitation. There is no evidence of pulmonary hypertension. Great Vessels The aorta was not well visualized. The sinuses of valsalva is normal in size. Venous The inferior vena cava was not well visualized. The inferior vena cava is normal in size. Pericardium/Pleural There is no evidence of pericardial effusion. Prior Study Comparison No prior study available for comparison. Recommendations, Care & Conclusions No obvious valvular pathology seen on this study. Measurements 2D Linear Measurements IVSd: 0.88 0.6-0.9/0.6-1.0 cm LVIDd: 4.32 3.9-5.3/4.2-5.9 cm LVIDd Index: 2.43 2.4-3.2/2.2-3.1 cm/m2 LVIDs: 3.14 2.0-3.6 cm LVPWd: 0.98 0.7-1.1 cm LA Diam: 2.30 2.7-3.8/3.0-4.0 cm LAIDs Index: 1.29 1.5-2.3 cm/m2 LV Mass: 161.98 67-162/88-224 g LV Mass Index: 91.00 43-95/49-115 g/m2 LVOT Diam: 2.70 3.0+(-)1.3 cm 2D Systolic Function EF 4C: 63.00 >55% EF 2C: 50.80 >55% EF BiP: 58.60 >55% Mitral Valve MV Pk E: 0.50 MV PK A: 0.85 MV Decel Time: 119.00 E/A: 0.60 E'Lateral: 6.42 E'Medial: 4.24 E/E' Med: 11.70 E/E' Lat: 7.70 PHT: 35.00 MVA PHT: 6.29 Decel [place]: 4.17 Aortic Valve AoV Pk Karel: 0.95 AoV Mn Karel: 0.67 AoV VTI: 0.17 AoV Pk Grad: 4.00 Aov Mn Grad: 2.00 BREANNA Cont.VTI: 3.97 LVOT LVOT Pk Karel: 0.63 LVOT Mn Karel: 0.43 LVOT VTI: 0.12 LVOT Pk Grad: 2.00 LVOT Mn Grad: 1.00 LVOT Diam: 2.70 LVOT Area: 5.73 Diastolic Function MV Pk E: 0.50 MV Pk A: 0.85 E/A: 0.60 E'Medial: 4.24 E/E' Med: 11.70 E' Laterial: 6.42 E/E' Lat: 7.70 Right Ventricle TAPSE (mm): 25.90 TVS' Karel: 13.90 Tricuspid Valve TR Pk Karel: 2.25 TR Pk Grad: 20.00 RA Press: 8.00 RVSP: 28.00 Great Vessels Aorta Sinus of Valsalva: 3.30 2.0-3.5 cm Pulmonary Valve PV Pk Karel: 0.86 Peak PV Grad: 3.00 Updated in Other Vendor System with Status of Final Min Gaines MD electronically signed on 12/11/2024 3:09:13 PM with status of Final
[2024-12-11 07:21] LABS: Hematocrit 32.3 % (42.0-52.0); Hemoglobin 11.0 g/dl (14.0-18.0); Mean Corpuscular HGB Conc 34.1 g/dl (31.0-36.0); Mean Corpuscular Hemoglobin 30.3 pg (27.0-33.0); Mean Corpuscular Volume 89.0 fL (80.0-98.0); NRBC Abs Auto 0.000 X10*3/uL (0.0-0.012); NRBC Pct Auto 0.0 /100WBC (0.0-0.2); Platelet Count 300 X10*3/uL (160-400); Red Blood Count 3.63 X10*6/uL (4.60-5.80); White Blood Count 12.7 X10*3/uL (4.8-10.8)
[2024-12-11] MEDS: Albuterol/Iprat 2.5/0.5MG 3 ML AMPUL.NEB INHALE ×4 (07:38→19:17)
[2024-12-11 07:39] LABS: Blood Urea Nitrogen 20 mg/dL (9-16); Calcium 8.6 mg/dL (8.4-10.2); Creatinine Clr Calc Pharmacy 54.3; Estimated Glomerular Filt Rate > 60
[2024-12-11 07:53] LABS: Anion Gap 12 (12-20); Carbon Dioxide 35 mmol/L (22-29); Chloride 95 mmol/L (96-108); Potassium 2.9 mmol/L (3.3-5.1); Sodium 139 mmol/L (135-145)
--- NOTE | 2024-12-11 08:09 | P.PNIM_ITS ---
Subjective Subjective Date of Service: 12/11/24 Interval History: pulm emboli,copd,pneumonia Review of Systems Shortness of breaths seems similar, aggressive cough with some pleurisy. No fevers. Review of Systems: Yes all other systems are reviewed and are negative Physical Exam 2 Exam: Exam: Appearance: Alert.? Oriented X3.? ?sob Eyes: Pupils equal, round and reactive to light.? Sclera nonicteric.? ENT: Pharynx normal.? Moist mucous membranes. cvs: rrr, [id number] . res:air entry diminshed at bases ,few wheezes ,mild use of accessory muscles. abd: no rebound or guarding ,nt, bs present. ext pulses present , no cyanosis neuro: axo3 , nonfocal. Vital Signs: Vital Signs: Last Vital Signs Temp 98 F 12/11/24 06:54 Pulse 89 12/11/24 07:40 Resp 22 H 12/11/24 07:40 BP 124/59 L 12/11/24 06:54 Pulse Ox 95 12/11/24 06:54 O2 Del Method Nasal Cannula 12/11/24 06:54 O2 Flow Rate 2 12/11/24 06:54 Oxygen Flow Rate 2 12/10/24 11:54 BMI result Body Mass Index 20.7 Objective Data Active Medications Acetaminophen (Acetaminophen 325 Mg Tablet) 650 mg PO Q6H PRN PRN Reason: Pain, Mild 1-3,fever,headache Albuterol/Ipratropium (Albuterol/Iprat 2.5/0.5mg 3 Ml Ampul.Neb) 3 ml INHALE RQ4H WHILE AWAKE [facility] Last Admin: 12/11/24 07:38 Dose: 3 ml Documented By: JOSE ARMANDO Calcium Carbonate (Calcium Carbonate 750 Mg Tab.Chew) 750 mg PO Q4H PRN PRN Reason: Heartburn Enoxaparin Sodium (Enoxaparin Sodium 60 Mg/0.6 Ml Syringe) 60 mg 1 mg/kg (60 mg) SUBCUT BID [facility] Last Admin: 12/10/24 22:05 Dose: 60 mg Documented By: URI Famotidine (Famotidine 20 Mg Tablet) 20 mg PO BID [facility] Last Admin: 12/10/24 22:06 Dose: 20 mg Documented By: URI Fluticasone/Umeclidinium/Vilanterol (Fluticasone/Umeclidinium/Vilanterol 200/62.5/25 Blst.W.Dev) 1 puff INHALE RDAILY [facility] Vancomycin HCl 1,250 mg/ (Sodium Chloride) 250 mls @ 166.667 mls/hr IV Q24H [facility] Magnesium Hydroxide (Milk Of Magnesia 30 Ml Oral.Susp) 30 ml PO DAILY PRN PRN Reason: Constipation Magnesium Oxide (Magnesium Oxide 400 Mg Tablet) 400 mg PO DAILY [facility] Last Admin: 12/10/24 19:14 Dose: 400 mg Documented By: RAFFI-AIDAN Melatonin (Melatonin 3 Mg Tablet) 6 mg PO BEDTIME PRN PRN Reason: Insomnia Meropenem (Meropenem 1 Gm Vial) 1 gm IVPUSH Q8H [facility] Last Admin: 12/11/24 03:07 Dose: 1 gm Documented By: MELLY Pharmacy Consult (Consult Rx Vancomycin Dosing) 1 each MISCELLANE DAILY PRN PRN Reason: Consult order Sodium Chloride (0.9 % Sodium Chloride Flush 3 Ml Syringe) 3 ml IVFLUSH QSHIFT [facility] Last Admin: 12/11/24 01:17 Dose: 3 ml Documented By: MELLY Labs 12/11/24 06:26 12/11/24 06:26 Labs: Laboratory Results - last 24 hr 12/10/24 12/10/24 12/10/24 12:37 16:50 19:15 MCV 87.9 87.6 MCH 30.4 30.4 MCHC 34.6 34.7 RDW 13.4 13.5 Plt Count 334 D 304 MPV 9.4 9.5 Immature Gran % (Auto) 1.0 H Neut % (Auto) 77.7 H Lymph % (Auto) 6.5 L [place] % (Auto) 14.4 H Eos % (Auto) 0.1 Baso % (Auto) 0.3 Lymph # (Auto) 0.9 L [place] # (Auto) 2.0 H Eos # (Auto) 0.0 Baso # (Auto) 0.0 Abs Immat Gran (auto) 0.14 H Absolute Neuts (auto) 10.7 H Absolute Nucleated RBC 0.000 0.000 Nucleated RBC % (auto) 0.0 0.0 Smear Tech's Comments VERIFIED PT 12.1 INR 1.1 APTT 27.5 Anion Gap 11 L Estim Creat Clear Calc 54.3 Estimated GFR > 60 Random Glucose 123 H Lactic Acid 1.1 Calcium 9.2 D Magnesium 1.9 Total Bilirubin 0.5 Direct Bilirubin 0.2 AST 15 ALT 9 Alkaline Phosphatase 57 Troponin I High Sens 3.8 C-Reactive Protein 24.50 H NT-Pro-B Natriuret Pep 469.0 H Total Protein 7.4 Albumin 3.9 Lipase 14 Procalcitonin 0.26 Urine Color Yellow Urine Appearance Clear Urine pH 6.0 Ur Specific [place] >= 1.030 H Urine Protein Trace Urine Glucose (UA) Negative Urine Ketones Negative Urine Blood Moderate (2+) H Urine Nitrite Negative Ur Leukocyte Esterase Negative Urine RBC 11-20 H Urine WBC 6-10 H Ur Squamous Epith Cells 0-2 Urine Bacteria Trace Hyaline Casts 0-2 COVID-19 (ANGEL) Negative COVID-19 Clin Com See Note Influenza Type A (ISABELLE) Negative Influenza Type B (ISABELLE) Negative Influenza A & B Note See Note 12/11/24 06:26 MCV 89.0 MCH 30.3 MCHC 34.1 RDW 13.5 Plt Count 300 MPV 9.8 Immature Gran % (Auto) Neut % (Auto) Lymph % (Auto) [place] % (Auto) Eos % (Auto) Baso % (Auto) Lymph # (Auto) [place] # (Auto) Eos # (Auto) Baso # (Auto) Abs Immat Gran (auto) Absolute Neuts (auto) Absolute Nucleated RBC 0.000 Nucleated RBC % (auto) 0.0 Smear Tech's Comments PT INR APTT Anion Gap 12 Estim Creat Clear Calc 54.3 Estimated GFR > 60 Random Glucose 104 Lactic Acid Calcium 8.6 D Magnesium Total Bilirubin Direct Bilirubin AST ALT Alkaline Phosphatase Troponin I High Sens C-Reactive Protein NT-Pro-B Natriuret Pep Total Protein Albumin Lipase Procalcitonin Urine Color Urine Appearance Urine pH Ur Specific [place] Urine Protein Urine Glucose (UA) Urine Ketones Urine Blood Urine Nitrite Ur Leukocyte Esterase Urine RBC Urine WBC Ur Squamous Epith Cells Urine Bacteria Hyaline Casts COVID-19 (ANGEL) COVID-19 Clin Com Influenza Type A (ISABELLE) Influenza Type B (ISABELLE) Influenza A & B Note Assessment and Plan (1) COPD (chronic obstructive pulmonary disease): Status: Acute (2) Pneumonia: Status: Acute Plan 79 y/o M with pmhx COPD on 2 liters of Oxygen at baseline, bronchiectasis, BPH, AAA, and inguinal hernia repair in 06/2024, and urosepsis secondary to ESBL, presented to Ed for lower abdominal pain, constipation, and cough. patient says lower abdominal pain, constipation, cough. Patient says abdominal pain mostly in suprapubic area, also has cough. He says that in addition to cough he feels short of breath with exertion. Pneumonia: Significant shortness of breath with minimal exertion, cough. Has tachypnea(likely due to pulm emboli not due to sepsis), leucocytosis lactic acid normal Plan: Started on IV antibiotics, blood cultures sent, incentive spirometry, chest physiotherapy. Pulmonary embolism: ct abd:Acute pulmonary artery emboli involving mostly the subsegmental pulmonary branches to the right lower lung lobe. Troponin negative, elevated BNP. echo:Normal left ventricular cavity size. There is normal left ventricular wallthickness. The left ventricular systolic function is normal. The calculated ejection fraction is 59% by biplane method. There is no evidence of regionalwall motion abnormalities. Diastolic function is normal for age. venous dupplex- Negative for bilateral lower extremity deep vein thrombosis. continue Lovenox. Acute hypokalemia: Added p.o. replacements. We will continue to monitor electrolytes and renal function. UTI: History of ESBL UTI As suprapubic pain, UA abnormal, urine culture needs to be sent In the ED patient received ertapenem. Continue meropenem Chronic respiratory failure secondary to COPD: No exacerbation Continue to monitor, and did nebs. History of AAA: Case discussed with the vascular: Currently no acute intervention, recommended to continue Lovenox. Ongoing need of stay: Pneumonia, pulmonary embolism, UTI-need IV antibiotics, anticoagulation, monitor renal function electrolyte closely. Quality Stroke Does the patient have a stroke diagnosis?: No VTE Prior VTE?: No VTE Risk Level:: Medical - moderate - high VTE Device Contraindication: N/A - Device Ordered VTE Drug Contraindication: N/A - Med Ordered
[2024-12-11 08:38] LABS: MRSA Nasal PCR POSITIVE (Negative); SA Nasal PCR POSITIVE (Negative)
[2024-12-11 09:05] LABS: Chlamydia pneumoniae PCR Not Detected (Not Detect.); Coronavirus 229E PCR Not Detected (Not Detect.); Coronavirus HKU1 PCR Not Detected (Not Detect.); Coronavirus NL63 PCR Not Detected (Not Detect.); Coronavirus OC43 PCR Not Detected (Not Detect.); RSV PCR Not Detected (Not Detect.); Rhino/Enterovirus PCR Not Detected (Not Detect.)
[2024-12-11 09:06] LABS: Magnesium 1.9 mg/dL (1.6-2.6)
[2024-12-11 10:05] LABS: Influenza A H1 PCR Not Detected (Not Detect.); Influenza A H1-2009 PCR Not Detected (Not Detect.); Influenza A H3 PCR Not Detected (Not Detect.); SARS-CoV-2 PCR Not Detected (Not Detect.)
[2024-12-11] MEDS: Potassium Chloride ER 20 MEQ TAB.ER.PRT 40 MEQ PO (10:33)
--- NOTE | 2024-12-11 11:12 | MHC.CM.PN ---
IMM given 12/11. Pt self-care, lives at home with his son/HCP Kyle who will transport him home at discharge. Pt uses home O2, unsure of the supplier. HCP on file and verified. PCP: Dr. Go Zamora
[2024-12-11] MEDS: Fluticasone/Umeclidinium/Vilanterol 200/62.5/25 BLST.W.DEV 1 PUFF INHALE (12:45)
[2024-12-11 17:20] LABS: INTERNATIONAL NORM RATIO 1.1 (0.9-1.1); Prothrombin Time 12.9 SEC (10.9-12.4)
[2024-12-11] MEDS: guaiFEN/Codeine SF 200/20/10ML 10 ML LIQUID PO (17:34)
[2024-12-11 18:47] LABS: Glucose, Whole Blood 166 mg/dL (60-115)
[2024-12-11 18:50] LABS: ABG HCO3 33 mmol/L (22-26); ABG O2 % Saturation 85.0 %
[2024-12-11] MEDS: Furosemide 20 MG/2 ML VIAL IVPUSH (18:55)
[2024-12-11 19:04] LABS: Hematocrit 32.4 % (42.0-52.0); Hemoglobin 11.2 g/dl (14.0-18.0); Imm Gran Abs Auto 0.13 X10*3/uL (0.00-0.03); Imm Gran Pct Auto 0.6 % (0.0-0.4); Lymphocytes Absolute Auto 1.0 X10*3/uL (1.2-4.9); MANUAL DIFF FLAG SCAN; Mean Corpuscular HGB Conc 34.6 g/dl (31.0-36.0); Mean Corpuscular Hemoglobin 30.8 pg (27.0-33.0); Mean Corpuscular Volume 89.0 fL (80.0-98.0); NRBC Abs Auto 0.000 X10*3/uL (0.0-0.012); NRBC Pct Auto 0.0 /100WBC (0.0-0.2); Platelet Count 372 X10*3/uL (160-400); Red Blood Count 3.64 X10*6/uL (4.60-5.80); SCAN SMEAR FLAG 1; White Blood Count 21.2 X10*3/uL (4.8-10.8)
[2024-12-11 19:26] LABS: Troponin-I High Sensitivity 10.6 ng/L (<3.5-35.0)
[2024-12-11 19:29] LABS: Alanine Aminotransferase 9 U/L (0-40); Albumin Level 3.5 g/dL (3.5-5.0); Alkaline Phosphatase 63 U/L (39-117); Anion Gap 15 (12-20); Aspartate Amino Transferase 17 U/L (5-37); Blood Urea Nitrogen 25 mg/dL (9-16); Calcium 8.7 mg/dL (8.4-10.2); Carbon Dioxide 28 mmol/L (22-29); Chloride 98 mmol/L (96-108); Creatinine Clr Calc Pharmacy 50.7; Estimated Glomerular Filt Rate > 60; Magnesium 2.1 mg/dL (1.6-2.6); Potassium 3.7 mmol/L (3.3-5.1); Sodium 137 mmol/L (135-145); Total Protein 6.9 g/dL (6.5-8.0)
[2024-12-11 20:58] LABS: Reflex Lactate? Lactic Acid Added
--- NOTE | 2024-12-11 21:16 | PM.EVENT ---
Event Note Date of Service: 12/11/24 Event Note: On arrival to my shift at 7 pm, I was notified Richardson was not doing well. So I sent to patient's room. Dr. Ambrosio was at bedside treating the patient. According to him the patient developed worsening shortness on breath and tachycardia. An CXR and ABGs were ordered showing a prominent masslike consolidation in the left upper lobe. ABGs show a pH of 7.48, pCO2 44, PO2 56, HC03 33 and oxygen saturation 85%. The patient was placed on high-flow. During this event the patient received treatment with furosemide 20 mg, and morphine 0.5 mg and breathing treatments. Patient has been receiving meropenem for ESBL. ECG was obtained that showed atrial fibrillation with rapid ventricular response. Patient received 1 dose of Cardizem 10 mg IVP and infusion was ordered. Case was transferred to the ICU for further management. Time Spent With Patient Time: Total time managing care of this patient today ____ minutes.
[2024-12-11 21:31] LABS: ~Lactic Acid-LAB USE ONLY 6.4 mmol/L (0.5-2.0)
--- NOTE | 2024-12-11 21:31 | PC.NURSE ---
At 18:25 patient noted to be desatting to 80s on 2L NC, this RN placed patient at 4.5L Oxymask, satting 88%. This RN noticed patient starting to use accessory muscles and suprasternal retractions. HR Trending 130s, sinus tachycardia. Notified MD Pedro, MD Ambrosio and respiratory team regarding patients condition (refer to provider notification) MD Ambrosio and ARISTEO Mirza came to bedside to assess patient. CXR, ABG, EKG, blood labs, IVPUSH solumedrol, ivpush lasix, ivpush morphine ordered. refer to MAR. Patient not maintaining sats on oxymask, patient placed on high flow nasal cannula. ICU consulted and accepted onto the unit. Patient transferred to the unit.
[2024-12-11 22:01] LABS: Glucose, Whole Blood 269 mg/dL (60-115)
--- NOTE | 2024-12-11 22:33 | PM.CCN ---
Critical Care Event Note Summary Date of Service: 12/11/24 Code activated: Yes Narrative: This case had a high probability of a clinically significant, sudden, or life threatening deterioration of this patient's condition which required my full and direct attention, intervention and personal management. Critical Care Time (minutes): 60 Comment: 79-year-old male with history of COPD on 2 L at baseline, bronchiectasis, BPH, AAA, urosepsis secondary to ESBL admitted to the medical floor for management of? COPD, pneumonia, pulmonary embolism. The pt was transferred to the ICU this evening for? tachycardia, tachypnea with accessory muscle use, increasing oxygen demands requiring high-flow oxygen. Shortly after arriving to the ICU, he developed worsening hypoxemia and progressive fatigue. His son Kyle arrived at bedside. The seriousness of the patient?s illness and the patient?s clinical decline were discussed with the patient and his son who decided to remain a full code and proceed with intubation.? While preparing to intubate, the patient?s heart rate began to decline and he vomited copious amounts of rosibel red blood. He was intubated successfully but became bradycardic and lost a pulse. CPR and ALS protocol were immediately initiated. The pt remained asystolic and pulseless despite 7 rounds of ALS. Attempts at resuscitation were futile. He was pulseless showing asystole on the monitor. Absent peripheral pulses. Pupils fixed and dilated. Absent heart sounds and no spontaneous breathing. The pt was pronounced at 2202.
[2024-12-11 23:14] LABS: Reflex Lactate? 2 Y
--- NOTE | 2024-12-12 00:17 | PM.DDS ---
Discharge Sum: Prov Provider Primary care physician: Go Zamora MD Admitting clinician: Aspen Pedro Attending physician on admission: Aspen Pedro Pronouncing clinician: Allyson Arroyo Discharge Sum: Diag PCOD Cause of : Respiratory failure Contributing Factors (1) COPD (chronic obstructive pulmonary disease): (2) Pneumonia: Discharge Sum: Summary Date and Time Date of admission: 12/10/24 16:59 Date of : 12/11/24 Time of : 22:02 Summary Details: 79-year-old male with history of COPD on 2 L at baseline, bronchiectasis, BPH, AAA, urosepsis secondary to ESBL admitted to the medical floor for management of? COPD, pneumonia, pulmonary embolism. The pt was transferred to the ICU this evening for? tachycardia, tachypnea with accessory muscle use, increasing oxygen demands requiring high-flow oxygen. Shortly after arriving to the ICU, he developed worsening hypoxemia and progressive fatigue. His son Kyle arrived at bedside. The seriousness of the patient?s illness and the patient?s clinical decline were discussed with the patient and his son who decided to remain a full code and proceed with intubation.? While preparing to intubate, the patient?s heart rate began to decline and he vomited copious amounts of rosibel red blood. He was intubated successfully but became bradycardic and lost a pulse. CPR and ALS protocol were immediately initiated. The pt remained asystolic and pulseless despite 7 rounds of ALS. Attempts at resuscitation were futile. He was pulseless showing asystole on the monitor. Absent peripheral pulses. Pupils fixed and dilated. Absent heart sounds and no spontaneous breathing. The pt was pronounced at 2202. Additional Data Confirmation of as documented by pronouncing clinician: no pulse, no respirations, no heart sounds and pupils fixed and dilated Family: contacted Attending/PCP notified?: Yes Attending physician: Aspen Pedro MD Was code activated?: Yes Autopsy requested?: No lease examiner notified?: No Organ bank notified?: Yes Advance directives: No Hospice patient?: No
--- NOTE | 2024-12-12 00:25 | W.PM.CCHP ---
Procedures Date of Service Date of Service: 12/12/24 Intubation Consent for Procedure: Emergent-no informed consent obtained (son at bedside signed consent) Time out performed: Yes Sedative: propofol Mg given: 50 Laryngoscope: fiber optic video scope ET tube size: 7.5 ET tube uncuffed: No Tube secured depth (cm): 25 Tube secured location: lips Tube placement confirmation: visualized tube passing through cords and confirmation by capnometry Intubation complications: other (large amount rosibel red blood in airway while intubating)
--- NOTE | 2024-12-12 01:27 | PC.NURSE ---
Critical Care Nursing Note At approximately 2029, the patient was transferred to the ICU for increasing oxygen demands. The patient was tachycardic, tachypneic with gross accessory muscle use, requiring high flow oxygen. The patient?s son was called upon transfer. Upon the son?s arrival to the unit, both son and the patient were updated on the concern for intubation, the decision was made to keep the patient a full code and intubate.? New IV access was obtained prior to intubating the patient. The patient was given 50 mg of propofol IVP. The patient was oxygenated via BVM preparing for intubation. The patient became bradycardic and vomited copious amounts of rosibel blood, followed by coffee ground emesis. 2 doses of epinephrine IVP were administered, see eMar. The patient was successfully intubated, but again became bradycardic and lost a pulse. CPR was initiated, please see Code Sheet. TOD was 2202, NEDS contacted and declined referral # [id number].
[2024-12-14 07:38] LABS: ABG Refer to POC result
== END 2024-12-11 22:02 | disposition expired | DRG 193 ==
LOC: HO.ED 16:45 → HO.EDOVER 17:10 → HO.IMC 21:16 → HO.ICU 12-11 19:27
PROVIDERS: Hospitalist; Physician Assistant Medical; Admitting Provider Internal Medicine; Emergency Provider Emergency Medicine; PCP Internal Medicine; Visit Provider Internal Medicine
DX: J18.9 Pneumonia, unspecified organism (principal); I26.99 Other pulmonary embolism without acute cor pulmonale; J47.0 Bronchiectasis with acute lower respiratory infection; N39.0 Urinary tract infection, site not specified; J96.10 Chronic respiratory failure, unspecified whether with hypoxia or hypercapnia; K92.0 Hematemesis; Z16.12 Extended spectrum beta lactamase (ESBL) resistance; I71.43 Infrarenal abdominal aortic aneurysm, without rupture; Z87.440 Personal history of urinary (tract) infections; N40.0 Benign prostatic hyperplasia without lower urinary tract symptoms; E87.6 Hypokalemia; Z99.81 Dependence on supplemental oxygen; Z79.02 Long term (current) use of antithrombotics/antiplatelets; Z79.899 Other long term (current) drug therapy
CPT/HCPCS: 36415; 36600; 71045; 71260; 74177; 80048; 80053; 80076; 81001; 82010; 82803; 82947; 83605; 83690; 83735; 83880; 84145; 84484; 85025; 85027; 85610; 85730; 86140; 87040; 87086; 87088; 87186; 87502; 87633; 87635; 87640; 87641; 93005; 93306; 93970; 94640; 94799; 99285; J0131; J0168; J0618; J1163; J1335; J1650; J1938; J2185; J2270; J2704; J2919; J3374; Q9957; Q9967

== ENCOUNTER → 2024-12-10 12:02 | Outpatient (BNV) | payer MEDICARE, MEDICAID, SELFPAY | PROVIDERS: PCP Internal Medicine; Visit Provider Radiology Diagnostic Radiology | DX: K80.20 Calculus of gallbladder without cholecystitis without obstruction (principal); J43.2 Centrilobular emphysema; I26.99 Other pulmonary embolism without acute cor pulmonale; R06.02 Shortness of breath | CPT/HCPCS: 71045; 71260; 74177; 93970 ==

== ENCOUNTER → 2024-12-10 12:49 | Outpatient (BNV) | payer MEDICARE, SELFPAY | PROVIDERS: Admitting Provider Internal Medicine; Emergency Provider Emergency Medicine; PCP Internal Medicine; Visit Provider Internal Medicine | DX: R94.31 Abnormal electrocardiogram [ECG] [EKG] (principal); R06.02 Shortness of breath | CPT/HCPCS: 93010 ==

== ENCOUNTER 2024-12-10 16:59 | Outpatient (BNV) | payer MEDICARE, SELFPAY | END 2024-12-11 18:32 | PROVIDERS: Admitting Provider Internal Medicine; Emergency Provider Emergency Medicine; PCP Internal Medicine; Visit Provider Radiology Neuroradiology | DX: R06.02 Shortness of breath (principal) | CPT/HCPCS: 71045 ==

== ENCOUNTER 2024-12-10 16:59 | Outpatient (BNV) | payer MEDICARE, SELFPAY | END 2024-12-11 07:00 | PROVIDERS: Admitting Provider Internal Medicine; Emergency Provider Emergency Medicine; PCP Internal Medicine; Visit Provider Internal Medicine | DX: I26.99 Other pulmonary embolism without acute cor pulmonale (principal) | CPT/HCPCS: 93306 ==

== ENCOUNTER → 2024-12-10 16:59 | Outpatient (BNV) | payer MEDICARE, SELFPAY | PROVIDERS: Admitting Provider Internal Medicine; Emergency Provider Emergency Medicine; PCP Internal Medicine; Visit Provider Internal Medicine | DX: J18.9 Pneumonia, unspecified organism (principal) | CPT/HCPCS: 99222; 99232; 99499 ==

== ENCOUNTER → 2024-12-10 16:59 | Outpatient (BNV) | payer MEDICARE, SELFPAY | PROVIDERS: Admitting Provider Internal Medicine; Emergency Provider Emergency Medicine; PCP Internal Medicine; Visit Provider Nurse Practitioner Family | DX: J44.9 Chronic obstructive pulmonary disease, unspecified (principal); J18.9 Pneumonia, unspecified organism | CPT/HCPCS: 31500; 99291; 99499 ==